=== PATIENT | male | born 1955 | race Two or more races ===

== ENCOUNTER 2020-07-29 13:46 | Inpatient (IN) | payer MEDICAID ==
[~2020-07-29] VITALS: Ht 165.1 cm; Wt 72.6 kg
[2020-07-29 14:07] VITALS: BP 145/82
--- NOTE | 2020-07-29 14:07 | NUR ---
ED Nurse Note: Patient from home and brought in by his family member due to low pulse oximeter reading started yesterday. Patient came in with 79% on room air. Patient alos reports bodyaches x2 days. AAO x4, ambulatory with SOB at rest. Placed on oxygen at 6LPM. Noted tachypnea at 30RR. Dr Foley notified.
[2020-07-29] MEDS ORDERED: ZITHROMAX250 MG ORAL (14:12)
[2020-07-29] MEDS ORDERED: Azithromycin 500 MG in NS 275 ML IVPB ONE (14:15)
[2020-07-29] MEDS ORDERED: dexAMETHasone 10mg/ml Inj IV ONE (14:15)
--- NOTE | 2020-07-29 14:33 | NUR ---
ED Nurse Note: Collected blood and rapid covid19 swab then sent.
--- NOTE | 2020-07-29 14:37 | Emergency Room Report ---
History of Present Illness General Chief Complaint: Dyspnea/Respdistress Source: Family Member Present Illness HPI Disclaimer: Please note that this report is being documented using Track[employer] technology. This can lead to erroneous entry secondary to incorrect interpretation by the dictating instrument. HPI: 64-year-old male no reported past medical history presents with shortness of breath and hypoxemia. Patient apparently cough and shortness of breath for the past 10 days. He has positive sick contacts at home and his son with COVID- 19. He states he has had a negative COVID-19 test however his room air oxygen level was in the 70s today. Also complains of some generalized weakness. No nausea vomiting diarrhea. Allergies: Coded Allergies: No Known Allergies (Unverified , 07/29/20) COVID-19 Screening Contact w/high risk pt: No Experienced COVID-19 symptoms?: Yes COVID-19 Testing performed MEDICAL SUPPORT ASSISTANT: Yes COVID-19 Screening: Negative COVID-19 COVID-19 Testing Source: CHIEF ORTHOPTIST Patient History Reviewed Nursing Documentation: PMH: Agreed; PSxH: Agreed Nursing Documentation-PMH Past Medical History: No Stated History Review of Systems All Other Systems: negative except mentioned in HPI Physical Exam Vital Signs Date Time Temp Pulse Resp B/P (MAP) Pulse Ox O2 Delivery O2 Flow Rate FiO2 07/29/20 13:57 97.9 72 34 148/80 (102) 79 Room Air Sp02 EP Interpretation: reviewed, abnormal General Appearance: well appearing, mild distress Head: normocephalic, atraumatic Eyes: bilateral eye PERRL, bilateral eye EOMI ENT: hearing grossly normal, moist mucus membranes Neck: full range of motion, supple Respiratory: lungs clear, no rhonchi, no wheezing, respiratory distress - Patient tachypneic Cardiovascular #1: normal peripheral pulses, regular rate, rhythm, no murmur Gastrointestinal: non tender, soft, non-distended, no guarding Neurologic: alert, oriented x3, no focal defects Skin: normal color, warm/dry Procedures Critical Care Time Critical Care Time Critical care is made on this patient due to presentation of COVID-19 with hypoxemia requiring my acute intervention. Critical care time is 35 minutes and excludes procedures. Medical Decision Making Diagnostic Impression: Primary Impression: Bilateral pneumonia Additional Impression: Acute respiratory failure with hypoxia ER Course MDM: Differential diagnosis included but not limited to pneumonia, COVID-19, CHF to name a few Clinical course-patient started on oxygen via nasal cannula approximately 6 L. Septic work-up initiated, IV Decadron and IV antibiotics given. Patient reports a negative COVID-19 test however he does have sick contacts with COVID-19 and symptoms consistent with COVID-19. However testing in the ER was negative for COVID-19 given the patient's exam and presentation and history were consistent with Covidpatient required oxygen supplementation and will be admitted to the telemetry floor under Dr. Guzman. Labs- Laboratory Tests Test 07/29/20 14:30 07/29/20 15:00 07/29/20 17:25 White Blood Count 21.9 K/UL (4.8-10.8) H Red Blood Count 4.97 M/UL (4.70-6.10) Hemoglobin 16.5 G/DL (14.2-18.0) Hematocrit 45.9 % (42.0-52.0) Mean Corpuscular Volume 92 FL (80-99) Mean Corpuscular Hemoglobin 33.2 PG (27.0-31.0) H Mean Corpuscular Hemoglobin Concent 36.0 G/DL (32.0-36.0) Red Cell Distribution Width 11.5 % (11.6-14.8) L Platelet Count 281 K/UL (150-450) Mean Platelet Volume 5.7 FL (6.5-10.1) L Neutrophils (%) (Auto) % (45.0-75.0) Lymphocytes (%) (Auto) % (20.0-45.0) Monocytes (%) (Auto) % (1.0-10.0) Eosinophils (%) (Auto) % (0.0-3.0) Basophils (%) (Auto) % (0.0-2.0) Neutrophils % (Manual) 94 % (45-75) H Lymphocytes % (Manual) 1 % (20-45) L Monocytes % (Manual) 0 % (1-10) L Eosinophils % (Manual) 0 % (0-3) Basophils % (Manual) 0 % (0-2) Metamyelocytes % 0 % (0-0) Myelocytes % 0 % (0-0) Promyelocytes % 0 % (0-0) Blast Cells % 0 % (0-0) Plasma Cells % (manual) 0 % (0-0) Band Neutrophils 5 % (0-8) Platelet Estimate Adequate Platelet Morphology Normal Polychromasia 1+ Anisocytosis 1+ Macrocytosis 2+ Prothrombin Time 11.2 SEC (9.30-11.50) Prothrombin Time INR 1.0 (0.9-1.1) Activated Partial Thromboplast Time 26 SEC (23-33) D-Dimer 7.09 mg/L FEU (0.00-0.49) H Sodium Level 133 MMOL/L (136-145) L Potassium Level 3.8 MMOL/L (3.5-5.1) Chloride Level 100 MMOL/L (98-107) Carbon Dioxide Level 25 MMOL/L (21-32) Anion Gap 8 mmol/L (5-15) Blood Urea Nitrogen 22 mg/dL (7-18) H Creatinine 1.1 MG/DL (0.55-1.30) Estimated Glomerular Filtration Rate > 60 mL/min (>60) Glucose Level 176 MG/DL (74-106) H Lactic Acid Level 2.60 mmol/L (0.4-2.0) H 2.60 mmol/L (0.66-2.22) H Calcium Level 8.6 MG/DL (8.5-10.1) Ferritin 894 NG/ML (8-388) H Total Bilirubin 0.8 MG/DL (0.2-1.0) Aspartate Amino Transferase (AST) 71 U/L (15-37) H Alanine Aminotransferase (ALT) 62 U/L (12-78) Alkaline Phosphatase 114 U/L (46-116) Lactate Dehydrogenase 665 U/L (81-234) H Total Creatine Kinase 95 U/L (26-308) Creatine Kinase MB 0.6 NG/ML (0.0-3.6) Creatine Kinase MB Relative Index 0.6 Troponin I 0.000 ng/mL (0.000-0.056) C-Reactive Protein, Quantitative Pending Pro-B-Type Natriuretic Peptide 389 pg/mL (0-125) H Total Protein 7.3 G/DL (6.4-8.2) Albumin 2.6 G/DL (3.4-5.0) L Globulin 4.7 g/dL Albumin/Globulin Ratio 0.6 (1.0-2.7) L Lipase 156 U/L (73-393) Arterial Blood pH 7.494 (7.350-7.450) Arterial Blood Partial Pressure CO2 29.5 mmHg (35.0-45.0) L Arterial Blood Partial Pressure O2 53.6 mmHg (75.0-100.0) L Arterial Blood HCO3 22.2 mmol/L (22.0-26.0) Arterial Blood Oxygen Saturation 90.3 % (95-100) L Arterial Blood Base Excess 0.2 (-2-2) Mehdi Test Positive Urine Color Yellow Urine Appearance Clear Urine pH 6 (4.5-8.0) Urine Specific [place] 1.015 (1.005-1.035) Urine Protein 1+ (NEGATIVE) H Urine Glucose (UA) Negative (NEGATIVE) Urine Ketones Negative (NEGATIVE) Urine Blood Negative (NEGATIVE) Urine Nitrite Negative (NEGATIVE) Urine Bilirubin Negative (NEGATIVE) Urine Urobilinogen 1 MG/DL (0.0-1.0) H Urine Leukocyte Esterase Negative (NEGATIVE) Urine RBC 0-2 /HPF (0 - 0) H Urine WBC 0-2 /HPF (0 - 0) Urine Squamous Epithelial Cells None /LPF (NONE/OCC) Urine Bacteria None /HPF (NONE) Microbiology Date/Time Source Procedure Growth Status 07/29/20 14:30 Nasopharynx SARS-CoV-2 RdRp Gene Assay - Final Complete On reevaluation: Patient required oxygen via facemask. Plan-admission to the telemetry floor EKG Diagnostic Results Rate: normal Rhythm: NSR ST Segments: no acute changes Chest X-Ray Diagnostic Results Chest X-Ray Diagnostic Results : Chest X-Ray Ordered: Yes # of Views/Limited/Complete: 1 View Indication: Shortness of Breath EP Interpretation: Yes Interpretation: other - Bilateral multifocal infiltrates noted Electronically Signed by: Axel Foley MD Last Vital Signs Date Time Temp Pulse Resp B/P (MAP) Pulse Ox O2 Delivery O2 Flow Rate FiO2 07/29/20 13:57 97.9 72 34 148/80 (102) 79 Room Air Disposition: ADMITTED INPATIENT Condition: Serious Referrals: NOT CHOSEN YONIS/,REFERRING (PCP) Axel Foley M.D. Jul 29, 2020 14:37
[2020-07-29 15:12] LABS: HEMATOCRIT 45.9 % (42.0-52.0); HEMOGLOBIN 16.5 G/DL (14.2-18.0); MEAN CORPUSCULAR VOLUME 92 FL (80-99); PLATELET COUNT 281 K/UL (150-450); RED BLOOD COUNT 4.97 M/UL (4.70-6.10); RED CELL DISTRIBUTION WIDTH 11.5 % (11.6-14.8); WHITE BLOOD COUNT 21.9 K/UL (4.8-10.8)
[2020-07-29 15:24] LABS: ANION GAP 8 mmol/L (5-15); BLOOD UREA NITROGEN 22 mg/dL (7-18); CALCIUM 8.6 MG/DL (8.5-10.1); CARBON DIOXIDE 25 MMOL/L (21-32); CHLORIDE 100 MMOL/L (98-107); CREATININE 1.1 MG/DL (0.55-1.30); POTASSIUM 3.8 MMOL/L (3.5-5.1); SODIUM 133 MMOL/L (136-145)
--- NOTE | 2020-07-29 15:29 | Diagnostic Imaging Report ---
Indication: Shortness of breath Technique: One view of the chest Comparison: none Findings: There are bilateral infiltrates in a peribronchial vascular distribution. The heart size is normal. There is a pleural spaces are clear. Impression: Bilateral infiltrates, likely multifocal pneumonia, likely viral
[2020-07-29] MEDS ORDERED: cefTRIAXone 1 GM in NS 55 ML IVPB ONE (15:30)
[2020-07-29 15:39] LABS: ALANINE AMINOTRANSFERASE 62 U/L (12-78); ALBUMIN 2.6 G/DL (3.4-5.0); ALBUMIN/GLOBULIN RATIO 0.6 (1.0-2.7); ALKALINE PHOSPHATASE 114 U/L (46-116); ASPARTATE AMINO TRANSFERASE 71 U/L (15-37); BILIRUBIN,TOTAL 0.8 MG/DL (0.2-1.0); CKMB 0.6 NG/ML (0.0-3.6); CREATINE KINASE 95 U/L (26-308); FERRITIN 894 NG/ML (8-388); LACTATE DEHYDROGENASE 665 U/L (81-234)
[2020-07-29 16:00] VITALS: BP 118/63
--- NOTE | 2020-07-29 16:43 | NUR ---
ED Nurse Note: Patient desating down to 87% on 6LPM. Placed patient on 15LPm via NR. RANJIT aware.
--- NOTE | 2020-07-29 17:02 | Consultation ---
Consult Note Consult Note DATE OF CONSULTATION: 07/29/2020 CONSULTING PHYSICIAN: Milton Antonio MD. ATTENDING PHYSICIAN: Dr. Guzman REASON FOR CONSULTATION: Pneumonia, hypoxia HISTORY OF PRESENT ILLNESS: This is a 64-year-old male with no pertinent past medical history who presented for evaluation of shortness of breath and hypoxemia. Patient reported cough and shortness of breath x10 days. He did report positive sick contacts at home who tested positive for COVID-19. His oxygen saturation was in the 70s today on room air. He was given supplemental oxygen and is now saturating at 92% on 6 L nasal cannula. He denies nausea, vomiting, diarrhea. Initial laboratories studies notable for leukocytosis with neutrophil predomin ance, hyponatremia, elevated BUN, hyperglycemia, elevated lactic acid, elevated ferritin and AST. Chest x-ray reveals bilateral infiltrates. Patient received IV Decadron and IV antibiotics and awaiting admission due to hypoxia and flulike symptoms. PAST MEDICAL HISTORY: None reported MEDICATIONS: None per patient ALLERGIES: No known allergies FAMILY HISTORY: Unknown PERSONAL/SOCIAL HISTORY: Lives at home with family REVIEW OF SYSTEMS: Negative except mentioned in HPI PHYSICAL EXAMINATION: VITAL SIGNS: Blood pressure 145/82, heart rate 72, respiratory rate 34, weight 72 kg, height 165 cm. HEENT: Head exam reveals that the head is normocephalic, atraumatic without deformity or unusual swelling. Pupils are PERRLA. CHEST AND LUNGS: Patient appears tachypneic, reveals clear, normal, symmetrical breath sounds with no adventitious sounds. CARDIOVASCULAR: Reveals normal S1, S2 without murmurs, rubs, or clicks. ABDOMEN: Soft with no tenderness or organomegaly. RECTAL: Deferred. MUSCULOSKELETAL: There is no tenderness to palpation. Range of motion is normal. NEUROLOGICAL: Alert and oriented x3 , nonfocal LABORATORY DATA: Laboratory testing shows WBC 21.9, neutrophils 94. Chemistries show sodium 133, BUN 22, glucose 176, lactic acid 2.6, ferritin 894, AST 71, LDH 665, BNP 389 ABG shows pH 7.494, PCO2 29.5, PO2 53.6 D-dimer 7.09 Assessment/Plan 1. Respiratory alkalosis, likely secondary to tachypnea - monitor ABG - reassurance and supportive care 2. Hyponatremia - per primary MD 3. Elvated BUN - per primary MD 4. Hyperglycemia - BG control 5. Pneumonia - We will continue broad-spectrum Abx - We will continue dexamethasone 6. Respiratory failure - Continue monitoring SaO2 and provide supplemental oxygen 7. COVID-19 negative 8. Elevated inflammatory markers; ferritin, D-Dimer - likely secondary to #5 - may benefit from Lovenox The care of this patient was discussed with my supervising physician Time spent for this encounter was approximately 31 minutes Slava Hector Jul 29, 2020 17:02
[2020-07-29 17:41] LABS: APPEARANCE,URINE CLEAR; BILIRUBIN, URINE NEGATIVE (NEGATIVE); COLOR,URINE YELLOW; GLUCOSE, URINE (UA) NEGATIVE (NEGATIVE); KETONES,URINE NEGATIVE (NEGATIVE); LEUKOCYTE ESTERASE ,URINE NEGATIVE (NEGATIVE); NITRITE,URINE NEGATIVE (NEGATIVE); PH,URINE 6 (4.5-8.0); PROTEIN,URINE 1+ (NEGATIVE); UROBILINOGEN,URINE 1 MG/DL (0.0-1.0)
[2020-07-29 18:00] VITALS: BP 145/81
--- NOTE | 2020-07-29 19:14 | NUR ---
HAND-OFF: Report given to Mita GONZALEZ.
[2020-07-29 19:37] VITALS: BP 116/81
--- NOTE | 2020-07-29 19:38 | NUR ---
ED Nurse Note: Recived report from Marilee Lopez RN. Pt is resting comfortably, axox4, SPO2 is 93% on 15L NRB. He is tachypneic. Vitals are stable as documented.
--- NOTE | 2020-07-29 20:15 | NUR ---
TRANSFER TO FLOOR: Patient transferred to as ordered, per ER MD. Report given to Roger RN. Belongings sent with pt. Counted money with reciving RN in sight of pt. Transfered with RN and tele box.
--- NOTE | 2020-07-29 20:22 | NUR ---
ED Nurse Note: Report given to Roger RN
--- NOTE | 2020-07-29 20:55 | NUR ---
NURSE NOTES: NURSE NOTES: Received report from Mita GONZALEZ at ER.The patient is alert and oriented x4 and is on a non rebreather @ 15 liters of oxygen with spo2 @ 97%. He is cooperative with his care and can ambulate to the bathroom with a steady gait.The skin is intact with capillary refills <3 seconds. The extremities has no evidence of Cyanosis, no gangrene noted. will followup with Dr. Guzman on admission order as indicated.
--- NOTE | 2020-07-29 21:02 | NUR ---
NURSE NOTES: Received admission orders from Dr. olivo. All orders executed as indicated.The patient is calm and relaxed. The bed in low level, call light within easy reach and siderails up x2. Will continue to monitor as indicated
[2020-07-29] MEDS ORDERED: Albuterol 90mcg Inhaler 8gm INH PRN (22:45)
[2020-07-30] VITALS: BP 131/72
[2020-07-30] MEDS ORDERED: Morphine Sulfate 2mg/ml Inj(IV/IM USE ONLY) IVP PRN (02:15)
[2020-07-30 04:00] VITALS: BP 133/70
[2020-07-30] MEDS ORDERED: Morphine Sulfate 4mg/ml Inj (IV USE ONLY) IVP PRN (04:45)
--- NOTE | 2020-07-30 07:10 | NUR ---
NURSE HAND-OFF REPORT: Important Events on Shift:Alert and oriented x4, continous on Non-rebrether Patient Status: Diet: Pending Orders: Pending Results/Labs: Pending MD notification: Latest Vital Signs: Temperature 98.6 , Pulse 62 , B/P 133 /70 , Respiratory Rate 19 , O2 SAT 94 , Non-Rebreather, O2 Flow Rate 15.0 . Vital Sign Comment: EKG Rhythm: Sinus Rhythm Rhythm change?: N MD Notified?: - MD Response: Latest Orozco Fall Score: 35 Fall Risk: Medium Risk Safety Measures: Call light Within Reach, Bed Alarm Zone 1, Side Rails Side Rails x1, Bed position Low and Locked. Fall Precautions: Yellow Socks Yellow Gown Door Sign Patient Fall Education Report given to .
--- NOTE | 2020-07-30 07:10 | NUR ---
NURSE NOTES: Dr. Bravo was called and a voice message was left informing her on patient WBC at 21.9 H.
--- NOTE | 2020-07-30 07:50 | NUR ---
NURSE NOTES: Report received from Roger RN. Patient is observed in bed, awake, alert, oriented, and able to make needs known. Respiratory is even, 15L non-rebreather, patient denies SOB and/or pain at this time. IV site is asymptomatic, patent, and intact. Bed is in lowest position with side rails up x2 and brakes are engaged. Encouraged patient to use call light when in need of assistance, pt verbalized understanding. Urinal and personal belongings are within reach. Will do frequent monitoring.
[2020-07-30 08:00] VITALS: BP 127/73
[2020-07-30 09:02] LABS: ANION GAP 10 mmol/L (5-15); BLOOD UREA NITROGEN 26 mg/dL (7-18); CALCIUM 8.7 MG/DL (8.5-10.1); CARBON DIOXIDE 23 MMOL/L (21-32); CHLORIDE 102 MMOL/L (98-107); POTASSIUM 4.1 MMOL/L (3.5-5.1); SODIUM 135 MMOL/L (136-145)
[2020-07-30 09:03] LABS: HEMATOCRIT 44.2 % (42.0-52.0); HEMOGLOBIN 15.7 G/DL (14.2-18.0); MEAN CORPUSCULAR VOLUME 93 FL (80-99); PLATELET COUNT 237 K/UL (150-450); RED BLOOD COUNT 4.75 M/UL (4.70-6.10); RED CELL DISTRIBUTION WIDTH 12.3 % (11.6-14.8); WHITE BLOOD COUNT 17.6 K/UL (4.8-10.8)
[2020-07-30] MEDS: Heparin 5000 units/ml inj SUBQ SCH ×2 (09:05→21:12)
--- NOTE | 2020-07-30 09:33 | NUR ---
CASE MANAGEMENT:REVIEW 64 YR OLD FEMALE PRESENTED TO ER BY FAMILY CC: BODY ACHES X2 DAYS. SOB SI: BILATERAL PNA. ACUTE RESP FAILURE W/HYPOXIA 97.8 72 34 148/80 79% ON RA WBC+21.9 IS: PLACED ON 6L/NC THEN 15L NRB IV AZITHROMYCIN IV DECADRON IV ROCEPHIN CXR BLOOD CX : TO TELEMETRY : FROM HOME
--- NOTE | 2020-07-30 09:51 | Pulmonology Progress Note ---
Subjective Interval Events: none major overnight per nursing Constitutional: Reports: no symptoms HEENT: Repors: no symptoms Respiratory: Reports: dry cough, shortness of breath Cardiovascular: Reports: no symptoms Gastrointestinal/Abdominal: Reports: no symptoms Allergies: Coded Allergies: No Known Allergies (Unverified , 07/29/20) Objective Last 24 Hour Vital Signs Date Time Temp Pulse Resp B/P (MAP) Pulse Ox O2 Delivery O2 Flow Rate FiO2 07/30/20 04:00 98.6 69 19 133/70 (91) 94 07/30/20 04:00 62 07/30/20 00:00 98.1 67 24 131/72 (91) 92 07/30/20 00:00 66 07/29/20 21:19 70 07/29/20 21:00 Non-Rebreather 15.0 07/29/20 20:55 Non-Rebreather 15.0 07/29/20 20:38 98.6 65 25 133/86 93 Non-Rebreather 15.0 07/29/20 19:37 98.6 63 35 116/81 93 Non-Rebreather 15.0 07/29/20 18:00 98.8 92 18 145/81 94 Non-Rebreather 15.0 07/29/20 16:00 97.9 83 17 118/63 97 Non-Rebreather 15.0 07/29/20 14:07 72 34 Nasal Cannula 6.0 07/29/20 14:07 97.9 83 30 145/82 90 Nasal Cannula 6.0 07/29/20 13:57 97.9 72 34 148/80 (102) 79 Room Air Intake and Output 07/29/20 07/30/20 19:00 07:00 Intake Total 330 ml 450 ml Output Total 300 ml Balance 30 ml 450 ml Intake Oral 450 ml IV Total 330 ml Output Urine Total 300 ml Objective 07/30 saturating at 94% on 15L NRBM General Appearance: no acute distress HEENT: normocephalic, atraumatic Respiratory: lungs clear Cardiovascular: normal rate, regular rhythm Abdomen: soft, non tender Microbiology Date/Time Source Procedure Growth Status 07/29/20 19:25 Nasal Aspirate - Final Complete 07/29/20 19:25 Nasal Aspirate - Final Complete 07/29/20 14:30 Nasopharynx SARS-CoV-2 RdRp Gene Assay - Final Complete Laboratory Tests 07/29/20 14:30: White Blood Count 21.9H, Red Blood Count 4.97, Hemoglobin 16.5, Hematocrit 45.9, Mean Corpuscular Volume 92, Mean Corpuscular Hemoglobin 33.2H, Mean Corpuscular Hemoglobin Concent 36.0, Red Cell Distribution Width 11.5L, Platelet Count 281, Mean Platelet Volume 5.7L, Neutrophils (%) (Auto) , Lymphocytes (%) (Auto) , Monocytes (%) (Auto) , Eosinophils (%) (Auto) , Basophils (%) (Auto) , Neutrophils % (Manual) 94H, Lymphocytes % (Manual) 1L, Monocytes % (Manual) 0L, Eosinophils % (Manual) 0, Basophils % (Manual) 0, Metamyelocytes % 0, Myelocytes % 0, Promyelocytes % 0, Blast Cells % 0, Plasma Cells % (manual) 0, Band Ne utrophils 5, Platelet Estimate Adequate, Platelet Morphology Normal, Polychromasia 1+, Anisocytosis 1+, Macrocytosis 2+, Prothrombin Time 11.2, Prothromb Time International Ratio 1.0, Activated Partial Thromboplast Time 26, D-Dimer 7.09H, Sodium Level 133L, Potassium Level 3.8, Chloride Level 100, Carbon Dioxide Level 25, Anion Gap 8, Blood Urea Nitrogen 22H, Creatinine 1.1, Estimat Glomerular Filtration Rate > 60, Glucose Level 176H, Lactic Acid Level 2.60H, Calcium Level 8.6, Ferritin 894H, Total Bilirubin 0.8, Aspartate Amino Transf (AST/SGOT) 71H, Alanine Aminotransferase (ALT/SGPT) 62, Alkaline Phosphatase 114, Lactate Dehydrogenase 665H, Total Creatine Kinase 95, Creatine Kinase MB 0.6, Creatine Kinase MB Relative Index 0.6, Troponin I 0.000, C- Reactive Protein, Quantitative [Pending], Pro-B-Type Natriuretic Peptide 389H, Total Protein 7.3, Albumin 2.6L, Globulin 4.7, Albumin/Globulin Ratio 0.6L, Lipase 156 07/29/20 15:00: Arterial Blood pH 7.494H, Arterial Blood Partial Pressure CO2 29.5L, Arterial Blood Partial Pressure O2 53.6L, Arterial Blood HCO3 22.2, Arterial Blood Oxygen Saturation 90.3L, Arterial Blood Base Excess 0.2, Mehdi Test Positive 07/29/20 17:25: Lactic Acid Level 2.60H, Urine Color Yellow, Urine Appearance Clear, Urine pH 6, Urine Specific [place] 1.015, Urine Protein 1+H, Urine Glucose (UA) Negative, Urine Ketones Negative, Urine Blood Negative, Urine Nitrite Negative, Urine Bilirubin Negative, Urine Urobilinogen 1H, Urine Leukocyte Esterase Negative, Urine RBC 0-2H, Urine WBC 0-2, Urine Squamous Epithelial Cells None, Urine Bacteria None 07/30/20 05:00: White Blood Count 17.6H, Red Blood Count 4.75, Hemoglobin 15.7, Hematocrit 44.2, Mean Corpuscular Volume 93, Mean Corpuscular Hemoglobin 33.1H, Mean Corpuscular Hemoglobin Concent 35.6, Red Cell Distribution Width 12.3, Platelet Count 237, Mean Platelet Volume 5.8L, Neutrophils (%) (Auto) , Lymphocytes (%) (Auto) , Monocytes (%) (Auto) , Eosinophils (%) (Auto) , Basophils (%) (Auto) , Neutrophils % (Manual) [Pending], Lymphocytes % (Manual) [Pending], Platelet Estimate [Pending], Platelet Morphology [Pending], Sodium Level 135L, Potassium Level 4.1, Chloride Level 102, Carbon Dioxide Level 23, Anion Gap 10, Blood Urea Nitrogen 26H, Creatinine 1.0, Estimat Glomerular Filtration Rate > 60, Glucose Level 132H, Calcium Level 8.7 Current Medications Medications (Trade) Dose Ordered Sig/Fabiano Route PRN Reason Start Time Stop Time Status Last Admin Dose Admin Albuterol Sulfate (Proventil MDI) 2 puff Q4H PRN INH Shortness of Breath 07/29/20 22:45 10/27/20 22:44 Azithromycin 500 mg/Dextrose 275 ml @ 275 mls/hr Q24HRS IV 07/30/20 11:00 08/05/20 11:59 Ceftriaxone Sodium 1 gm/ Dextrose 55 ml @ 110 mls/hr Q24H IVPB 07/30/20 10:00 08/06/20 09:59 Cetylpyridinium Chloride (Cepacol) 1 lozg PRN PRN [place] For Cough 07/30/20 08:30 10/28/20 08:29 07/30/20 08:58 Dexamethasone Sodium Phosphate (Decadron 10mg/ ml Inj) 6 mg DAILY IV 07/31/20 10:00 08/09/20 09:59 Heparin Sodium (Porcine) (Heparin 5000 units/ml) 5,000 units EVERY 12 HOURS SUBQ 07/30/20 09:00 09/13/20 08:59 07/30/20 09:05 Morphine Sulfate (Morphine Sulfate) 4 mg Q4H PRN IVP Severe Pain (Pain Scale 7-10) 07/30/20 04:45 08/06/20 04:44 Assessment/Plan Assessment/Plan 1. Respiratory alkalosis, likely secondary to tachypnea - monitor ABG - reassurance and supportive care 2. Hyponatremia - per primary MD 3. Elvated BUN - per primary MD 4. Hyperglycemia - BG control 5. Pneumonia with respiratory failure - We will continue broad-spectrum Abx - We will continue dexamethasone - Continue monitoring SaO2 - continue 15L NRBM at this point 6. COVID-19 negative 7. Elevated inflammatory markers; ferritin, D-Dimer - likely secondary to #5 - on heparin per primary MD The care of this patient was discussed with my supervising physician Time spent for this encounter was approximately 31 minutes Slava Hector Jul 30, 2020 09:51
--- NOTE | 2020-07-30 10:21 | NUR ---
RD ASSESSMENT & RECOMMENDATIONS SEE CARE ACTIVITY FOR COMPLETE ASSESSMENT DAILY ESTIMATED NEEDS: Needs based on Pulmonary 64.5kg abw 25-30 kcals/kg 1983-9536 total kcals 1-1.5 g protein/kg 65-97 g total protein 25-30 mL/kg 1908-1504 total fluid mLs NUTRITION DIAGNOSIS: Altered nutrition related lab values related to clinical status as evidenced by elev LD(665), elev WBC(trending down 17.6), elev BG(132-176) CURRENT DIET:Regular PO DIET RECOMMENDATIONS: Regular diet (texture as tolerated) ADDITIONAL RECOMMENDATIONS: 1) Obtain a standing scale wt as able 2) Monitor BG, need for NISS 3) Monitor PO intake and resp status (currently on NRB) Need for supplements and/or snacks
[2020-07-30] MEDS: cefTRIAXone 1 GM in D5W 55 ML IVPB SCH (10:23)
--- NOTE | 2020-07-30 10:45 | History and Physical Report ---
DATE OF ADMISSION: 07/29/2020 DATE AND TIME SEEN: 07/30/2020 at 10 a.m. CONSULTANTS: 1. Santosh Cheek MD. 2. Milton Antonio MD. CHIEF COMPLAINT: Shortness of breath, pneumonia, hypoxia, COVID exposure. BRIEF HISTORY: This is a 64-year-old male, who presents with increased shortness of breath for about 10 days, admits to positive COVID exposure with family, came to [place] diagnosed as above, was diagnosed with also pneumonia and hypoxia, and admitted to telemetry. Currently, on pulmonary treatment, sleeping in bed, not talking much. REVIEW OF SYSTEMS: Unavailable. PAST MEDICAL HISTORY: Includes nothing. PAST SURGICAL HISTORY: None. ALLERGIES: Denies. MEDICATIONS: Include dexamethasone, azithromycin, ceftriaxone, morphine, albuterol. SOCIAL HISTORY: Unable to obtain, as he is very lethargic and sleeping at this time. PHYSICAL EXAMINATION: GENERAL: Sleeping in bed, not really responding to questions. VITAL SIGNS: Temperature 98, pulse 69, respirations 19, blood pressure 132/70. CARDIOVASCULAR: No murmur. LUNGS: Poor air exchange. ABDOMEN: Bowel sounds distant. EXTREMITIES: No cyanosis, clubbing, or edema. NEUROLOGIC: The patient moves all extremities, slightly weak. LABORATORY AND DIAGNOSTIC DATA: Labs at this time show white count 17, otherwise CBC is normal. BMP shows sodium 135, BUN 26, glucose 135. Lactic acid 2.6. Albumin 2.6. BNP is 389. INR is 1.0. D-dimer 7.09. Urinalysis, 1+ protein, otherwise normal. ASSESSMENT: 1. Shortness of breath. 2. Bilateral pneumonia. 3. Hypoxia. 4. Leukocytosis. 5. COVID exposure. 6. Malnutrition. PLAN: 1. O2 and pulmonary treatment. 2. Antibiotics per Infectious Disease. 3. Blood pressure and pain control. 4. Dietary followup. 5. ID and Pulmonary followup. 6. CBC and BMP in the morning. Robert Guzman D.O. DR: LEON JOB#: [id number] CC:
[2020-07-30] MEDS: Azithromycin 500 MG in D5W 275 ML IV SCH (11:31)
[2020-07-30 12:00] VITALS: BP 133/85
--- NOTE | 2020-07-30 12:00 | NUR ---
NURSE NOTES: Patient is observed in bed, awake, alert, oriented, and able to make needs known. Respiratory even and unlabored. Tolerating 15L NRB. VSS.
--- NOTE | 2020-07-30 12:54 | Consultation ---
History of Present Illness General Date patient seen: Jul 30, 2020 Reason for Hospitalization: Dyspnea/Respdistress Present Illness HPI 64-year-old male Covid negative admitted [facility] for leukocytosis lactic acidosis complaint abdominal discomfort surgery called to eval and assist with care patient seen patient value chart reviewed 3 out of 10 cramping discomfort no nausea vomiting. Family numbers at home with Covid prior. Allergies: Coded Allergies: No Known Allergies (Unverified , 07/29/20) COVID-19 Screening Contact w/high risk pt: No Experienced COVID-19 symptoms?: Yes Coronavirus symptoms experienc: Shortness of Breath Medication History Scheduled Azithromycin* (Zithromax*), 250 MG ORAL DAILY, (Reported) Patient History History Provided By: Patient, Medical Record, PMD Healthcare decision maker Resuscitation status Advanced Directive on File Past Medical/Surgical History Past Medical/Surgical History: (1) Hypoxia (2) Bilateral pneumonia (3) Acute respiratory failure with hypoxia Review of Systems Review of Symptoms General ROS: no weight loss or fever Psychological ROS: no depression or mood changes, no memory loss Ophthalmic ROS: no visual changes or eye irritation ENT ROS: no nasal congestion, hearing loss, dizziness Allergy and Immunology ROS: no allergic symptoms or urticaria Hematological and Lymphatic ROS: no swollen glands, unusual bleeding or bruising Endocrine ROS: no polyuria, polydipsia, weight changes, temperature intolerance Respiratory ROS: no cough, shortness of breath, or wheezing Cardiovascular ROS: no chest pain or dyspnea on exertion Gastrointestinal ROS: denies abdominal pain, bright red blood in stool. Musculoskeletal ROS: no myalgias or arthralgias Neurological ROS: no TIA or stroke symptoms Dermatological ROS: no new or changing skin lesions, rashes or pruritis Physical Exam Physical Exam General appearance: alert, cooperative, no distress, appears stated age Head: Normocephalic, without obvious abnormality, atraumatic Eyes: conjunctivae/corneas clear. PERRL, EOM's intact. Fundi benign Throat: Lips, mucosa, and tongue normal. Teeth and gums normal Neck: supple, symmetrical, trachea midline, no adenopathy, thyroid: not enlarged, symmetric, no tenderness/mass/nodules, no carotid bruit and no JVD Lungs: clear to auscultation bilaterally Heart: regular rate and rhythm, S1, S2 normal, no murmur, click, rub or gallop Abdomen: soft, non-tender. Bowel sounds normal. No masses, no organomegaly Extremities: extremities normal, atraumatic, no cyanosis or edema Pulses: 2+ and symmetric Skin: Skin color, texture, turgor normal. No rashes or lesions Neurologic: Grossly normal Last 24 Hour Vital Signs Date Time Temp Pulse Resp B/P (MAP) Pulse Ox O2 Delivery O2 Flow Rate FiO2 07/30/20 12:00 97.5 90 19 133/85 (101) 95 07/30/20 11:35 69 07/30/20 09:00 Non-Rebreather 15.0 07/30/20 08:03 67 07/30/20 08:00 97.6 85 19 127/73 (91) 95 07/30/20 04:00 98.6 69 19 133/70 (91) 94 07/30/20 04:00 62 07/30/20 00:00 98.1 67 24 131/72 (91) 92 07/30/20 00:00 66 07/29/20 21:19 70 07/29/20 21:00 Non-Rebreather 15.0 07/29/20 20:55 Non-Rebreather 15.0 07/29/20 20:38 98.6 65 25 133/86 93 Non-Rebreather 15.0 07/29/20 19:37 98.6 63 35 116/81 93 Non-Rebreather 15.0 07/29/20 18:00 98.8 92 18 145/81 94 Non-Rebreather 15.0 07/29/20 16:00 97.9 83 17 118/63 97 Non-Rebreather 15.0 07/29/20 14:07 72 34 Nasal Cannula 6.0 07/29/20 14:07 97.9 83 30 145/82 90 Nasal Cannula 6.0 07/29/20 13:57 97.9 72 34 148/80 (102) 79 Room Air Intake and Output 07/29/20 07/30/20 19:00 07:00 Intake Total 330 ml 450 ml Output Total 300 ml Balance 30 ml 450 ml Intake Oral 450 ml IV Total 330 ml Output Urine Total 300 ml Laboratory Tests Test 07/29/20 14:30 07/29/20 15:00 07/29/20 17:25 07/30/20 05:00 White Blood Count 21.9 K/UL (4.8-10.8) H 17.6 K/UL (4.8-10.8) H Red Blood Count 4.97 M/UL (4.70-6.10) 4.75 M/UL (4.70-6.10) Hemoglobin 16.5 G/DL (14.2-18.0) 15.7 G/DL (14.2-18.0) Hematocrit 45.9 % (42.0-52.0) 44.2 % (42.0-52.0) Mean Corpuscular Volume 92 FL (80-99) 93 FL (80-99) Mean Corpuscular Hemoglobin 33.2 PG (27.0-31.0) H 33.1 PG (27.0-31.0) H Mean Corpuscular Hemoglobin Concent 36.0 G/DL (32.0-36.0) 35.6 G/DL (32.0-36.0) Red Cell Distribution Width 11.5 % (11.6-14.8) L 12.3 % (11.6-14.8) Platelet Count 281 K/UL (150-450) 237 K/UL (150-450) Mean Platelet Volume 5.7 FL (6.5-10.1) L 5.8 FL (6.5-10.1) L Neutrophils (%) (Auto) % (45.0-75.0) % (45.0-75.0) Lymphocytes (%) (Auto) % (20.0-45.0) % (20.0-45.0) Monocytes (%) (Auto) % (1.0-10.0) % (1.0-10.0) Eosinophils (%) (Auto) % (0.0-3.0) % (0.0-3.0) Basophils (%) (Auto) % (0.0-2.0) % (0.0-2.0) Neutrophils % (Manual) 94 % (45-75) H 93 % (45-75) H Lymphocytes % (Manual) 1 % (20-45) L 4 % (20-45) L Monocytes % (Manual) 0 % (1-10) L 3 % (1-10) Eosinophils % (Manual) 0 % (0-3) 0 % (0-3) Basophils % (Manual) 0 % (0-2) 0 % (0-2) Metamyelocytes % 0 % (0-0) Myelocytes % 0 % (0-0) Promyelocytes % 0 % (0-0) Blast Cells % 0 % (0-0) Plasma Cells % (manual) 0 % (0-0) Band Neutrophils 5 % (0-8) 0 % (0-8) Platelet Estimate Adequate Adequate Platelet Morphology Normal Normal Polychromasia 1+ 1+ Anisocytosis 1+ Macrocytosis 2+ Prothrombin Time 11.2 SEC (9.30-11.50) Prothromb Time International Ratio 1.0 (0.9-1.1) Activated Partial Thromboplast Time 26 SEC (23-33) D-Dimer 7.09 mg/L FEU (0.00-0.49) H Sodium Level 133 MMOL/L (136-145) L 135 MMOL/L (136-145) L Potassium Level 3.8 MMOL/L (3.5-5.1) 4.1 MMOL/L (3.5-5.1) Chloride Level 100 MMOL/L (98-107) 102 MMOL/L (98-107) Carbon Dioxide Level 25 MMOL/L (21-32) 23 MMOL/L (21-32) Anion Gap 8 mmol/L (5-15) 10 mmol/L (5-15) Blood Urea Nitrogen 22 mg/dL (7-18) H 26 mg/dL (7-18) H Creatinine 1.1 MG/DL (0.55-1.30) 1.0 MG/DL (0.55-1.30) Estimat Glomerular Filtration Rate > 60 mL/min (>60) > 60 mL/min (>60) Glucose Level 176 MG/DL (74-106) H 132 MG/DL (74-106) H Lactic Acid Level 2.60 mmol/L (0.4-2.0) H 2.60 mmol/L (0.66-2.22) H Calcium Level 8.6 MG/DL (8.5-10.1) 8.7 MG/DL (8.5-10.1) Ferritin 894 NG/ML (8-388) H Total Bilirubin 0.8 MG/DL (0.2-1.0) Aspartate Amino Transf (AST/SGOT) 71 U/L (15-37) H Alanine Aminotransferase (ALT/SGPT) 62 U/L (12-78) Alkaline Phosphatase 114 U/L (46-116) Lactate Dehydrogenase 665 U/L (81-234) H Total Creatine Kinase 95 U/L (26-308) Creatine Kinase MB 0.6 NG/ML (0.0-3.6) Creatine Kinase MB Relative Index 0.6 Troponin I 0.000 ng/mL (0.000-0.056) C-Reactive Protein, Quantitative Pending Pro-B-Type Natriuretic Peptide 389 pg/mL (0-125) H Total Protein 7.3 G/DL (6.4-8.2) Albumin 2.6 G/DL (3.4-5.0) L Globulin 4.7 g/dL Albumin/Globulin Ratio 0.6 (1.0-2.7) L Lipase 156 U/L (73-393) Arterial Blood pH 7.494 (7.350-7.450) Arterial Blood Partial Pressure CO2 29.5 mmHg (35.0-45.0) L Arterial Blood Partial Pressure O2 53.6 mmHg (75.0-100.0) L Arterial Blood HCO3 22.2 mmol/L (22.0-26.0) Arterial Blood Oxygen Saturation 90.3 % (95-100) L Arterial Blood Base Excess 0.2 (-2-2) Mehdi Test Positive Urine Color Yellow Urine Appearance Clear Urine pH 6 (4.5-8.0) Urine Specific [place] 1.015 (1.005-1.035) Urine Protein 1+ (NEGATIVE) H Urine Glucose (UA) Negative (NEGATIVE) Urine Ketones Negative (NEGATIVE) Urine Blood Negative (NEGATIVE) Urine Nitrite Negative (NEGATIVE) Urine Bilirubin Negative (NEGATIVE) Urine Urobilinogen 1 MG/DL (0.0-1.0) H Urine Leukocyte Esterase Negative (NEGATIVE) Urine RBC 0-2 /HPF (0 - 0) H Urine WBC 0-2 /HPF (0 - 0) Urine Squamous Epithelial Cells None /LPF (NONE/OCC) Urine Bacteria None /HPF (NONE) Differential Total Cells Counted 100 Microbiology Date/Time Source Procedure Growth Status 07/29/20 19:25 Nasal Aspirate - Final Complete 07/29/20 19:25 Nasal Aspirate - Final Complete 07/29/20 14:30 Nasopharynx SARS-CoV-2 RdRp Gene Assay - Final Complete Height (Feet): 5 Height (Inches): 5.00 Weight (Pounds): 160 Medications Current Medications Medications (Trade) Dose Ordered Sig/Fabiano Route PRN Reason Start Time Stop Time Status Last Admin Dose Admin Albuterol Sulfate (Proventil MDI) 2 puff Q4H PRN INH Shortness of Breath 07/29/20 22:45 10/27/20 22:44 Azithromycin 500 mg/Dextrose 275 ml @ 275 mls/hr Q24HRS IV 07/30/20 11:00 08/05/20 11:59 07/30/20 11:31 Ceftriaxone Sodium 1 gm/ Dextrose 55 ml @ 110 mls/hr Q24H IVPB 07/30/20 10:00 08/06/20 09:59 07/30/20 10:23 Cetylpyridinium Chloride (Cepacol) 1 lozg PRN PRN [place] For Cough 07/30/20 08:30 10/28/20 08:29 07/30/20 08:58 Dexamethasone Sodium Phosphate (Decadron 10mg/ ml Inj) 6 mg DAILY IV 07/31/20 10:00 08/09/20 09:59 Heparin Sodium (Porcine) (Heparin 5000 units/ml) 5,000 units EVERY 12 HOURS SUBQ 07/30/20 09:00 09/13/20 08:59 07/30/20 09:05 Morphine Sulfate (Morphine Sulfate) 4 mg Q4H PRN IVP Severe Pain (Pain Scale 7-10) 07/30/20 04:45 08/06/20 04:44 Assessment/Plan Problem List: (1) Hypoxia ICD Codes: R09.02 - Hypoxemia SNOMED: 034522382 (2) Bilateral pneumonia ICD Codes: J18.9 - Pneumonia, unspecified organism SNOMED: 041606253, 235927669 (3) Acute respiratory failure with hypoxia Assessment & Plan: ards covid negative as per pulm id input appreciated abd pain likely cramping indigestion from ill ness ppi ordered okay for diet monitor intake am labs will follow with exam and recs ICD Codes: J96.01 - Acute respiratory failure with hypoxia SNOMED: 09085306, 452579582 Vern Quevedo Jul 30, 2020 12:54
--- NOTE | 2020-07-30 14:45 | Consultation ---
DATE OF CONSULTATION: 07/30/2020 INFECTIOUS DISEASE CONSULTATION REFERRING PHYSICIAN: Robert Guzman D.O. REASON FOR CONSULTATION: Pneumonia. HISTORY OF PRESENTING ILLNESS: This is a 64-year-old gentleman without any past medical history, who comes in with shortness of breath along with cough. Apparently, he had COVID exposure with his family and comes in with hypoxia. An infectious disease consultation has been obtained for antibiotics. PAST MEDICAL HISTORY: Nothing significant. SOCIAL HISTORY: He does not smoke, drink, or use drugs. FAMILY HISTORY: Noncontributory. REVIEW OF SYSTEMS: RESPIRATORY: No fever, chills. He has cough. He has shortness of breath. No chest pain. CARDIAC: No chest pain. No palpitation. No dizziness. No syncope. GASTROINTESTINAL: No nausea. No vomiting. No abdominal pain or diarrhea. MEDICATIONS: As an inpatient, he is on ceftriaxone, azithromycin, dexamethasone, Cepacol, morphine, albuterol. ALLERGIES: No known drug allergies. PHYSICAL EXAMINATION: VITAL SIGNS: Temperature 97.5, T-max of 98.8, pulse of 90, respiratory rate of 19, blood pressure 133/85, O2 saturation of 95% on 15 L oxygen. Examination deferred due to COVID-19. LABORATORY DATA: White count 17.6, hemoglobin 15.7, MCV of 93, platelet count of 237. White count of 21.9 yesterday. Sodium 135, potassium 4.1, chloride 102, bicarb 23, BUN 26, creatinine 1, glucose 132, calcium 8.7, ferritin 894. Total bilirubin 0.8, AST 71, ALT 62, alkaline phosphatase 114, LDH 665. CK of 95, troponin 0, C-reactive protein pending. Beta-natriuretic peptide 389. Total protein 7.3, albumin 2.6, lipase of 156. UA showing 0-2 white cells. COVID-19 rapid test is negative. Nasal swab was negative for influenza A and B. Chest x-ray is showing bilateral infiltrates, likely multifocal pneumonia. ASSESSMENT: This is a 64-year-old gentleman with no significant past medical history, who comes in with cough and shortness of breath after exposure to his family with COVID and is found to have pneumonia, on 15 L oxygen with O2 saturation of 95%. PLAN: 1. Continue ceftriaxone and azithromycin for now. 2. Repeat COVID-19 test. 3. We will start the patient on remdesivir once COVID-19 test is positive. 4. The patient has received one dose of dexamethasone. Continue dexamethasone day 2 today. 5. Continue isolation. I would like to thank, Dr. Robert Guzman, for this consultation. Santosh Cheek M.D. DR: KITTY JOB#: [id number] CC: Robert Guzman D.O.
[2020-07-30] MEDS: dexAMETHasone 10mg/ml Inj IV SCH (15:15)
[2020-07-30 16:00] VITALS: BP 130/75
--- NOTE | 2020-07-30 16:01 | Cardiology Report ---
APPROVED REPORT EKG Measurement Heart [id number] MA [id number] <Conclusion> Normal sinus rhythm Possible Left atrial enlargement Borderline ECG
--- NOTE | 2020-07-30 19:24 | NUR ---
NURSE HAND-OFF REPORT: Important Events on Shift: PCR swab initiated. Patient Status: stable Diet: reg diet Pending Orders: PCR Novel swab Pending Results/Labs:[] Pending MD notification:[] Latest Vital Signs: Temperature 97.8 , Pulse 89 , B/P 130 /75 , Respiratory Rate 19 , O2 SAT 95 , Non-Rebreather, O2 Flow Rate 15.0 . Vital Sign Comment: [] EKG Rhythm: Sinus Rhythm Rhythm change?: N MD Notified?: - MD Response: Latest Orozco Fall Score: 35 Fall Risk: Medium Risk Safety Measures: Call light Within Reach, Bed Alarm Zone 1, Side Rails Side Rails x1, Bed position Low and Locked. Fall Precautions: Yellow Socks Yellow Gown Door Sign Patient Fall Education Report given to Elizabeth GONZALEZ
[2020-07-30 20:00] VITALS: BP 131/65
--- NOTE | 2020-07-30 20:05 | NUR ---
NURSE NOTES: Report given by Denise. Patient awake alert and makes needs known x4. Patient on non rebreather mask 15 LPM. Call light and bedside table within reach. Bed at lowest position locked with side rails up. Will continue with plan of care.
[2020-07-31] VITALS: BP 140/77
[2020-07-31 04:00] VITALS: BP 144/73
--- NOTE | 2020-07-31 04:00 | NUR ---
NURSE NOTES: Dr. Guzman made aware that patient had bradycardia throughout the night as low as 51 BPM but asymptomatic easy to arouse. BP is therapeutic range.
[2020-07-31 06:12] LABS: HEMATOCRIT 44.7 % (42.0-52.0); HEMOGLOBIN 15.8 G/DL (14.2-18.0); MEAN CORPUSCULAR VOLUME 94 FL (80-99); PLATELET COUNT 189 K/UL (150-450); RED BLOOD COUNT 4.75 M/UL (4.70-6.10); RED CELL DISTRIBUTION WIDTH 12.3 % (11.6-14.8); WHITE BLOOD COUNT 21.7 K/UL (4.8-10.8)
[2020-07-31 06:56] LABS: ANION GAP 8 mmol/L (5-15); BLOOD UREA NITROGEN 35 mg/dL (7-18); CALCIUM 8.6 MG/DL (8.5-10.1); CARBON DIOXIDE 26 MMOL/L (21-32); CHLORIDE 105 MMOL/L (98-107); CREATININE 1.1 MG/DL (0.55-1.30); SODIUM 139 MMOL/L (136-145)
--- NOTE | 2020-07-31 07:00 | NUR ---
NURSE NOTES: Patient c/o pain in upper chest and throat when he coughs. Pain does not radiate. patient refused to have morphine stating that it was too strong for the type of pain he had. He also refused another dose of throat lozenge stating it didn't help that much. Patient requested to have cough medication instead. Dr. Guzman made aware. New orders noted and carried out.
--- NOTE | 2020-07-31 07:00 | NUR ---
NURSE NOTES: Dr. Guzman gave orders for cardio consult with Dr. Bains for episode of Bradycardia last night. Noted and carried out.
--- NOTE | 2020-07-31 07:44 | NUR ---
NURSE NOTES: Received report from Elizabeth/CARLOS. Pt is in bed, sleeping. On 15L non-rebreather mask, pt complain of chest pressure when coughing. IV on right AC 20G, SL, patent and clean. Bed in the lowest position and locked, call light within reach, encouraged to use it when needed. Side rails up X3. Will continue plan of care.
[2020-07-31 08:00] VITALS: BP 127/69
[2020-07-31] MEDS: dexAMETHasone 10mg/ml Inj IV SCH (08:30)
[2020-07-31] MEDS: Heparin 5000 units/ml inj SUBQ SCH ×2 (08:31→21:52)
[2020-07-31] MEDS: cefTRIAXone 1 GM in D5W 55 ML IVPB SCH (09:03)
--- NOTE | 2020-07-31 09:11 | General Progress Note ---
Subjective Allergies: Coded Allergies: No Known Allergies (Unverified , 07/29/20) All Systems: reviewed and negative except above Subjective pulm tx asleep Objective Last 24 Hour Vital Signs Date Time Temp Pulse Resp B/P (MAP) Pulse Ox O2 Delivery O2 Flow Rate FiO2 07/31/20 08:00 97.9 68 18 127/69 (88) 93 07/31/20 04:00 51 07/31/20 04:00 98.9 61 18 144/73 (96) 94 07/31/20 00:00 56 07/31/20 00:00 98.8 59 18 140/77 (98) 95 07/30/20 21:00 Non-Rebreather 15.0 07/30/20 20:00 64 07/30/20 20:00 99.5 63 19 131/65 (87) 93 07/30/20 16:00 97.8 89 19 130/75 (93) 95 07/30/20 15:20 73 07/30/20 12:00 97.5 90 19 133/85 (101) 95 07/30/20 11:35 69 Intake and Output 07/30/20 07/31/20 19:00 07:00 Intake Total 450 ml 500 ml Output Total 900 ml 800 ml Balance -450 ml -300 ml Intake Oral 450 ml 500 ml Output Urine Total 900 ml 800 ml Laboratory Tests 07/31/20 05:35: White Blood Count 21.7H, Red Blood Count 4.75, Hemoglobin 15.8, Hematocrit 44.7, Mean Corpuscular Volume 94, Mean Corpuscular Hemoglobin 33.2H, Mean Corpuscular Hemoglobin Concent 35.3, Red Cell Distribution Width 12.3, Platelet Count 189, Mean Platelet Volume 6.2L, Neutrophils (%) (Auto) , Lymphocytes (%) (Auto) , Monocytes (%) (Auto) , Eosinophils (%) (Auto) , Basophils (%) (Auto) , Neutrophils % (Manual) [Pending], Lymphocytes % (Manual) [Pending], Platelet Estimate [Pending], Platelet Morphology [Pending], Sodium Level 139, Potassium Level 4.0, Chloride Level 105, Carbon Dioxide Level 26, Anion Gap 8, Blood Urea Nitrogen 35H, Creatinine 1.1, Estimat Glomerular Filtration Rate > 60, Glucose Level 132H, Calcium Level 8.6 Height (Feet): 5 Height (Inches): 5.00 Weight (Pounds): 160 General Appearance: lethargic EENT: normal ENT inspection Neck: normal alignment Cardiovascular: normal peripheral pulses, normal rate, regular rhythm Respiratory/Chest: chest wall non-tender, lungs clear, normal breath sounds Abdomen: normal bowel sounds, non tender, soft Extremities: normal inspection Edema: no edema noted Arm (L), no edema noted Arm (R), no edema noted Leg (L), no edema noted Leg (R), no edema noted Pedal (L), no edema noted Pedal (R), no edema noted Generalized Neurologic: motor weakness Skin: normal pigmentation, warm/dry Assessment/Plan Problem List: (1) Hypoxia ICD Codes: R09.02 - Hypoxemia SNOMED: 421756909 (2) Bilateral pneumonia ICD Codes: J18.9 - Pneumonia, unspecified organism SNOMED: 231967982, 016271087 (3) Acute respiratory failure with hypoxia ICD Codes: J96.01 - Acute respiratory failure with hypoxia SNOMED: 33872521, 028652626 (4) Bradycardia ICD Codes: R00.1 - Bradycardia, unspecified SNOMED: 97391226 (5) Malnutrition ICD Codes: E46 - Unspecified protein-calorie malnutrition SNOMED: 53531527 Status: unchanged Assessment/Plan: o2 pulm tx abx pt diet cardio f/u cbc bmp am Robert Guzman DO Jul 31, 2020 09:10
--- NOTE | 2020-07-31 09:16 | NUR ---
CASE MANAGEMENT:REVIEW 07/31/20 SI: BILATERAL PNA. ACUTE RESP FAILURE W/HYPOXIA 97.9 68 18 127/69 93% ON 15L NRB MASK WBC+21.7 BUN+35 IS: IV AZITHROMYCIN Q24 IV ROCEPHIN Q24 IV DECADRON Q24 HEPARIN SQ Q12 : TELEMETRY STATUS DCP: FROM HOME
[2020-07-31] MEDS: Azithromycin 500 MG in D5W 275 ML IV SCH (10:28)
[2020-07-31] MEDS: guaiFENesin /DM 10ml syrup ORAL PRN ×2 (10:38→16:32)
--- NOTE | 2020-07-31 10:42 | Infectious Diseases Prog Note ---
Assessment/Plan Assessment/Plan A; Pneumonia, suspected COVID19 disease Leukocytosis Hypoxemia Lactic acidosis PLAN: 1. Continue ceftriaxone and azithromycin for now. 2. Will COVID-19 PCR 3. We will start the patient on remdesivir once COVID-19 test is positive. 4. Continue dexamethasone day # 3 . 5. Continue isolation. Subjective ROS Limited/Unobtainable: Yes Constitutional: Denies: fever HEENT: Reports: other - sore throat Respiratory: Reports: shortness of breath, dry cough Allergies: Coded Allergies: No Known Allergies (Unverified , 07/29/20) Objective Last 24 Hour Vital Signs Date Time Temp Pulse Resp B/P (MAP) Pulse Ox O2 Delivery O2 Flow Rate FiO2 07/31/20 09:00 Non-Rebreather 15.0 07/31/20 08:00 97.9 68 18 127/69 (88) 93 07/31/20 08:00 63 07/31/20 04:00 51 07/31/20 04:00 98.9 61 18 144/73 (96) 94 07/31/20 00:00 56 07/31/20 00:00 98.8 59 18 140/77 (98) 95 07/30/20 21:00 Non-Rebreather 15.0 07/30/20 20:00 64 07/30/20 20:00 99.5 63 19 131/65 (87) 93 07/30/20 16:00 97.8 89 19 130/75 (93) 95 07/30/20 15:20 73 07/30/20 12:00 97.5 90 19 133/85 (101) 95 07/30/20 11:35 69 Height (Feet): 5 Height (Inches): 5.00 Weight (Pounds): 160 HEENT: mucous membranes moist Respiratory/Chest: other - on oxygen by NRB mask Cardiovascular: normal rate Abdomen: soft, non tender Neurologic/Psychiatric: alert, responsive Microbiology Date/Time Source Procedure Growth Status 07/29/20 19:25 Nasal Aspirate - Final Complete 07/29/20 19:25 Nasal Aspirate - Final Complete 07/29/20 14:30 Nasopharynx SARS-CoV-2 RdRp Gene Assay - Final Complete Laboratory Tests Test 07/31/20 05:35 White Blood Count 21.7 K/UL (4.8-10.8) H Red Blood Count 4.75 M/UL (4.70-6.10) Hemoglobin 15.8 G/DL (14.2-18.0) Hematocrit 44.7 % (42.0-52.0) Mean Corpuscular Volume 94 FL (80-99) Mean Corpuscular Hemoglobin 33.2 PG (27.0-31.0) H Mean Corpuscular Hemoglobin Concent 35.3 G/DL (32.0-36.0) Red Cell Distribution Width 12.3 % (11.6-14.8) Platelet Count 189 K/UL (150-450) Mean Platelet Volume 6.2 FL (6.5-10.1) L Neutrophils (%) (Auto) % (45.0-75.0) Lymphocytes (%) (Auto) % (20.0-45.0) Monocytes (%) (Auto) % (1.0-10.0) Eosinophils (%) (Auto) % (0.0-3.0) Basophils (%) (Auto) % (0.0-2.0) Neutrophils % (Manual) Pending Lymphocytes % (Manual) Pending Platelet Estimate Pending Platelet Morphology Pending Sodium Level 139 MMOL/L (136-145) Potassium Level 4.0 MMOL/L (3.5-5.1) Chloride Level 105 MMOL/L (98-107) Carbon Dioxide Level 26 MMOL/L (21-32) Anion Gap 8 mmol/L (5-15) Blood Urea Nitrogen 35 mg/dL (7-18) H Creatinine 1.1 MG/DL (0.55-1.30) Estimat Glomerular Filtration Rate > 60 mL/min (>60) Glucose Level 132 MG/DL (74-106) H Calcium Level 8.6 MG/DL (8.5-10.1) Current Medications Medications (Trade) Dose Ordered Sig/Fabiano Route PRN Reason Start Time Stop Time Status Last Admin Dose Admin Albuterol Sulfate (Proventil MDI) 2 puff Q4H PRN INH Shortness of Breath 07/29/20 22:45 10/27/20 22:44 Azithromycin 500 mg/Dextrose 275 ml @ 275 mls/hr Q24HRS IV 07/30/20 11:00 08/05/20 11:59 07/31/20 10:28 Ceftriaxone Sodium 1 gm/ Dextrose 55 ml @ 110 mls/hr Q24H IVPB 07/30/20 10:00 08/06/20 09:59 07/31/20 09:03 Cetylpyridinium Chloride (Cepacol) 1 lozg Q2H PRN [place] For Cough 07/30/20 21:00 10/28/20 20:59 07/31/20 09:02 Dexamethasone Sodium Phosphate (Decadron 10mg/ ml Inj) 6 mg DAILY IV 07/30/20 15:00 08/07/20 09:01 07/31/20 08:30 Guaifenesin/ Dextromethorphan (Robitussin DM Syrup) 15 ml Q6H PRN [place] For Cough 07/31/20 08:30 10/29/20 08:29 Heparin Sodium (Porcine) (Heparin 5000 units/ml) 5,000 units EVERY 12 HOURS SUBQ 07/30/20 09:00 09/13/20 08:59 07/31/20 08:31 Morphine Sulfate (Morphine Sulfate) 4 mg Q4H PRN IVP Severe Pain (Pain Scale 7-10) 07/30/20 04:45 08/06/20 04:44 Jose Antonio Klein MD Jul 31, 2020 10:42
[2020-07-31] MEDS ORDERED: ZINC LOZENGES1 EACH ORAL (11:45)
[2020-07-31] MEDS ORDERED: VITAMIN C250 MG ORAL (11:45)
[2020-07-31] MEDS ORDERED: PREDNISONE10 MG ORAL (11:45)
[2020-07-31] MEDS ORDERED: SILTUSSIN DM C118 ML PO (11:45)
--- NOTE | 2020-07-31 11:54 | Surgery Progress Note ---
Surgery Progress Note Subjective Additional Comments no acte events no n/v labs noted Objective Last 24 Hour Vital Signs Date Time Temp Pulse Resp B/P (MAP) Pulse Ox O2 Delivery O2 Flow Rate FiO2 07/31/20 09:00 Non-Rebreather 15.0 07/31/20 08:00 97.9 68 18 127/69 (88) 93 07/31/20 08:00 63 07/31/20 04:00 51 07/31/20 04:00 98.9 61 18 144/73 (96) 94 07/31/20 00:00 56 07/31/20 00:00 98.8 59 18 140/77 (98) 95 07/30/20 21:00 Non-Rebreather 15.0 07/30/20 20:00 64 07/30/20 20:00 99.5 63 19 131/65 (87) 93 07/30/20 16:00 97.8 89 19 130/75 (93) 95 07/30/20 15:20 73 07/30/20 12:00 97.5 90 19 133/85 (101) 95 I&O Intake and Output 07/30/20 07/31/20 19:00 07:00 Intake Total 450 ml 500 ml Output Total 900 ml 800 ml Balance -450 ml -300 ml Intake Oral 450 ml 500 ml Output Urine Total 900 ml 800 ml Cardiovascular: RSR Respiratory: clear, decreased breath sounds Abdomen: soft, non-tender, present bowel sounds Extremities: no tenderness, no cyanosis Laboratory Tests Test 07/31/20 05:35 White Blood Count 21.7 K/UL (4.8-10.8) H Red Blood Count 4.75 M/UL (4.70-6.10) Hemoglobin 15.8 G/DL (14.2-18.0) Hematocrit 44.7 % (42.0-52.0) Mean Corpuscular Volume 94 FL (80-99) Mean Corpuscular Hemoglobin 33.2 PG (27.0-31.0) H Mean Corpuscular Hemoglobin Concent 35.3 G/DL (32.0-36.0) Red Cell Distribution Width 12.3 % (11.6-14.8) Platelet Count 189 K/UL (150-450) Mean Platelet Volume 6.2 FL (6.5-10.1) L Neutrophils (%) (Auto) % (45.0-75.0) Lymphocytes (%) (Auto) % (20.0-45.0) Monocytes (%) (Auto) % (1.0-10.0) Eosinophils (%) (Auto) % (0.0-3.0) Basophils (%) (Auto) % (0.0-2.0) Neutrophils % (Manual) Pending Lymphocytes % (Manual) Pending Platelet Estimate Pending Platelet Morphology Pending Sodium Level 139 MMOL/L (136-145) Potassium Level 4.0 MMOL/L (3.5-5.1) Chloride Level 105 MMOL/L (98-107) Carbon Dioxide Level 26 MMOL/L (21-32) Anion Gap 8 mmol/L (5-15) Blood Urea Nitrogen 35 mg/dL (7-18) H Creatinine 1.1 MG/DL (0.55-1.30) Estimat Glomerular Filtration Rate > 60 mL/min (>60) Glucose Level 132 MG/DL (74-106) H Calcium Level 8.6 MG/DL (8.5-10.1) Plan Problems: (1) Hypoxia (2) Bilateral pneumonia (3) Acute respiratory failure with hypoxia Assessment & Plan: ards covid negative as per pulm id input appreciated abd pain likely cramping indigestion from ill ness ppi ordered okay for diet monitor intake am labs will follow with exam and Vern Gaytan Jul 31, 2020 11:54
[2020-07-31 12:00] VITALS: BP 132/75
--- NOTE | 2020-07-31 13:39 | Pulmonology Progress Note ---
Subjective ROS Limited/Unobtainable: Yes Interval Events: none major overnight per nursing Constitutional: Denies: fever HEENT: Repors: no symptoms Respiratory: Reports: dry cough, shortness of breath Cardiovascular: Reports: no symptoms Gastrointestinal/Abdominal: Reports: no symptoms Allergies: Coded Allergies: No Known Allergies (Unverified , 07/29/20) All Systems: reviewed and negative except above Objective Last 24 Hour Vital Signs Date Time Temp Pulse Resp B/P (MAP) Pulse Ox O2 Delivery O2 Flow Rate FiO2 07/31/20 12:00 97.7 73 18 132/75 (94) 93 07/31/20 12:00 74 07/31/20 09:00 Non-Rebreather 15.0 07/31/20 08:00 97.9 68 18 127/69 (88) 93 07/31/20 08:00 63 07/31/20 04:00 51 07/31/20 04:00 98.9 61 18 144/73 (96) 94 07/31/20 00:00 56 07/31/20 00:00 98.8 59 18 140/77 (98) 95 07/30/20 21:00 Non-Rebreather 15.0 07/30/20 20:00 64 07/30/20 20:00 99.5 63 19 131/65 (87) 93 07/30/20 16:00 97.8 89 19 130/75 (93) 95 07/30/20 15:20 73 Intake and Output 07/30/20 07/31/20 19:00 07:00 Intake Total 450 ml 500 ml Output Total 900 ml 800 ml Balance -450 ml -300 ml Intake Oral 450 ml 500 ml Output Urine Total 900 ml 800 ml Objective 07/31 no change 07/30 saturating at 94% on 15L NRBM General Appearance: no acute distress HEENT: normocephalic, atraumatic Respiratory: lungs clear Cardiovascular: normal rate, regular rhythm Abdomen: soft, non tender Microbiology Date/Time Source Procedure Growth Status 07/29/20 19:25 Nasal Aspirate - Final Complete 07/29/20 19:25 Nasal Aspirate - Final Complete 07/29/20 14:30 Nasopharynx SARS-CoV-2 RdRp Gene Assay - Final Complete Laboratory Tests 07/31/20 05:35: White Blood Count 21.7H, Red Blood Count 4.75, Hemoglobin 15.8, Hematocrit 44.7, Mean Corpuscular Volume 94, Mean Corpuscular Hemoglobin 33.2H, Mean Corpuscular Hemoglobin Concent 35.3, Red Cell Distribution Width 12.3, Platelet Count 189, Mean Platelet Volume 6.2L, Neutrophils (%) (Auto) , Lymphocytes (%) (Auto) , Monocytes (%) (Auto) , Eosinophils (%) (Auto) , Basophils (%) (Auto) , Differential Total Cells Counted 100, Neutrophils % (Manual) 90H, Lymphocytes % (Manual) 3L, Monocytes % (Manual) 7, Eosinophils % (Manual) 0, Basophils % (Manual) 0, Band Neutrophils 0, Platelet Estimate Adequate, Platelet Morphology Normal, Red Blood Cell Morphology Normal, Sodium Level 139, Potassium Level 4.0, Chloride Level 105, Carbon Dioxide Level 26, Anion Gap 8, Blood Urea Nitrogen 35H, Creatinine 1.1, Estimat Glomerular Filtration Rate > 60, Glucose Level 132H , Calcium Level 8.6 Current Medications Medications (Trade) Dose Ordered Sig/Fabiano Route PRN Reason Start Time Stop Time Status Last Admin Dose Admin Albuterol Sulfate (Proventil MDI) 2 puff Q4H PRN INH Shortness of Breath 07/29/20 22:45 10/27/20 22:44 Azithromycin 500 mg/Dextrose 275 ml @ 275 mls/hr Q24HRS IV 07/30/20 11:00 08/05/20 11:59 07/31/20 10:28 Ceftriaxone Sodium 1 gm/ Dextrose 55 ml @ 110 mls/hr Q24H IVPB 07/30/20 10:00 08/06/20 09:59 07/31/20 09:03 Cetylpyridinium Chloride (Cepacol) 1 lozg Q2H PRN [place] For Cough 07/30/20 21:00 10/28/20 20:59 07/31/20 12:07 Dexamethasone Sodium Phosphate (Decadron 10mg/ ml Inj) 6 mg DAILY IV 07/30/20 15:00 08/07/20 09:01 07/31/20 08:30 Guaifenesin/ Dextromethorphan (Robitussin DM Syrup) 15 ml Q6H PRN [place]AL For Cough 07/31/20 08:30 10/29/20 08:29 07/31/20 10:38 Heparin Sodium (Porcine) (Heparin 5000 units/ml) 5,000 units EVERY 12 HOURS SUBQ 07/30/20 09:00 09/13/20 08:59 07/31/20 08:31 Morphine Sulfate (Morphine Sulfate) 4 mg Q4H PRN IVP Severe Pain (Pain Scale 7-10) 07/30/20 04:45 08/06/20 04:44 Assessment/Plan Assessment/Plan 1. Respiratory alkalosis, likely secondary to tachypnea - monitor ABG - reassurance and supportive care 2. Hyponatremia - per primary MD 3. Elvated BUN - per primary MD 4. Hyperglycemia - BG control 5. Pneumonia with respiratory failure - On broad-spectrum Abx - on dexamethasone - Continue monitoring SaO2 - continue 15L NRBM at this point 6. COVID-19 rapid negative - COVID-19 PCR result pending 7. Elevated inflammatory markers; ferritin, D-Dimer - likely secondary to #5 - on heparin per primary MD The care of this patient was discussed with my supervising physician Time spent for this encounter was approximately 31 minutes Slava Hector Jul 31, 2020 13:39 Milton Antonio MD Jul 31, 2020 14:22
[2020-07-31 16:00] VITALS: BP 134/79
--- NOTE | 2020-07-31 16:04 | Cardiac Electrophysiology PN ---
Subjective Subjective [id number] Objective Last 24 Hour Vital Signs Date Time Temp Pulse Resp B/P (MAP) Pulse Ox O2 Delivery O2 Flow Rate FiO2 07/31/20 12:00 97.7 73 18 132/75 (94) 93 07/31/20 12:00 74 07/31/20 09:00 Non-Rebreather 15.0 07/31/20 08:00 97.9 68 18 127/69 (88) 93 07/31/20 08:00 63 07/31/20 04:00 51 07/31/20 04:00 98.9 61 18 144/73 (96) 94 07/31/20 00:00 56 07/31/20 00:00 98.8 59 18 140/77 (98) 95 07/30/20 21:00 Non-Rebreather 15.0 07/30/20 20:00 64 07/30/20 20:00 99.5 63 19 131/65 (87) 93 Intake and Output 07/30/20 07/31/20 19:00 07:00 Intake Total 450 ml 500 ml Output Total 900 ml 800 ml Balance -450 ml -300 ml Intake Oral 450 ml 500 ml Output Urine Total 900 ml 800 ml Laboratory Tests Test 07/31/20 05:35 White Blood Count 21.7 K/UL (4.8-10.8) H Red Blood Count 4.75 M/UL (4.70-6.10) Hemoglobin 15.8 G/DL (14.2-18.0) Hematocrit 44.7 % (42.0-52.0) Mean Corpuscular Volume 94 FL (80-99) Mean Corpuscular Hemoglobin 33.2 PG (27.0-31.0) H Mean Corpuscular Hemoglobin Concent 35.3 G/DL (32.0-36.0) Red Cell Distribution Width 12.3 % (11.6-14.8) Platelet Count 189 K/UL (150-450) Mean Platelet Volume 6.2 FL (6.5-10.1) L Neutrophils (%) (Auto) % (45.0-75.0) Lymphocytes (%) (Auto) % (20.0-45.0) Monocytes (%) (Auto) % (1.0-10.0) Eosinophils (%) (Auto) % (0.0-3.0) Basophils (%) (Auto) % (0.0-2.0) Differential Total Cells Counted 100 Neutrophils % (Manual) 90 % (45-75) H Lymphocytes % (Manual) 3 % (20-45) L Monocytes % (Manual) 7 % (1-10) Eosinophils % (Manual) 0 % (0-3) Basophils % (Manual) 0 % (0-2) Band Neutrophils 0 % (0-8) Platelet Estimate Adequate Platelet Morphology Normal Red Blood Cell Morphology Normal Sodium Level 139 MMOL/L (136-145) Potassium Level 4.0 MMOL/L (3.5-5.1) Chloride Level 105 MMOL/L (98-107) Carbon Dioxide Level 26 MMOL/L (21-32) Anion Gap 8 mmol/L (5-15) Blood Urea Nitrogen 35 mg/dL (7-18) H Creatinine 1.1 MG/DL (0.55-1.30) Estimat Glomerular Filtration Rate > 60 mL/min (>60) Glucose Level 132 MG/DL (74-106) H Calcium Level 8.6 MG/DL (8.5-10.1) Microbiology Date/Time Source Procedure Growth Status 07/29/20 19:25 Nasal Aspirate - Final Complete 07/29/20 19:25 Nasal Aspirate - Final Complete 07/29/20 14:30 Nasopharynx SARS-CoV-2 RdRp Gene Assay - Final Complete Navjot Bains MD Jul 31, 2020 16:04
--- NOTE | 2020-07-31 18:29 | Consultation ---
DATE OF CONSULTATION: 07/31/2020 CARDIOLOGY CONSULTATION CONSULTING PHYSICIAN: Navjot Bains MD REFERRING PHYSICIAN: Robert Guzman DO REASON FOR CONSULTATION: Bradycardia. HISTORY OF PRESENT ILLNESS: The patient is a 64-year-old gentleman with no past medical history, who presented to emergency room for increasing shortness of breath and hypoxia for the last 10 days. He was found as positive with COVID-19. He states that he had a negative COVID-19 test; however, his oxygen on room air was in 70s. Hence, the patient was admitted. The patient also had generalized weakness. He did not have nausea, vomiting, or diaphoresis. The patient was admitted; however, yesterday, the patient was bradycardic, heart rate of 50, and Cardiology consultation was obtained for further evaluation and management. REVIEW OF SYSTEMS: Negative other than what is mentioned in the history of present illness. PAST MEDICAL HISTORY: As mentioned above. FAMILY HISTORY: Noncontributory. SOCIAL HISTORY: He lives with family. Does not smoke or drink alcohol. PHYSICAL EXAMINATION: VITAL SIGNS: Show blood pressure of 132/75, pulse 74, respirations 18, temperature 97.7. HEAD AND NECK: Showed no JVD. LUNGS: Clear. CARDIOVASCULAR: Shows regular S1 and S2 with no gallop. ABDOMEN: Soft. EXTREMITIES: No pitting edema. LABORATORY AND DIAGNOSTIC DATA: His labs show white count of 21.7, hemoglobin of 15.9, hematocrit of 44, and platelet count is 189,000. Sodium 139, potassium 4.0, BUN of 30, creatinine 1.1. Lactic acid 2.6. First troponin is negative. BNP is 389. ASSESSMENT AND PLAN: 1. Bradycardia. The patient's heart rate is improved and currently 60s. The patient is not on any sinus-galen or AV-galen blocking agents. We will watch the patient on telemetry and we will get an echocardiogram for further evaluation and management. 2. Sepsis. White count 21,000. Rapid COVID is negative and PCR result is pending. Currently on IV antibiotic with dexamethasone and per Dr. Antonio. Thank you very much for allowing me to participate in the care of this patient. Please do not hesitate to contact me for any questions regarding my evaluation. Navjot Bains M.D. DR: Spenser JOB#: [id number] CC:
--- NOTE | 2020-07-31 19:24 | NUR ---
NURSE HAND-OFF REPORT: Important Events on Shift: Patient Status: Stable Diet: Regular Pending Orders: 2D echo Pending Results/Labs: Pending MD notification: Latest Vital Signs: Temperature 97.2 , Pulse 63 , B/P 134 /79 , Respiratory Rate 18 , O2 SAT 90 , Non-Rebreather, O2 Flow Rate 15.0 . Vital Sign Comment: Stable EKG Rhythm: Sinus Rhythm Rhythm change?: N MD Notified?: Moi Guzman MD Response: Latest Orozco Fall Score: 35 Fall Risk: Medium Risk Safety Measures: Call light Within Reach, Bed Alarm Zone 1, Side Rails Side Rails x1, Bed position Low and Locked. Fall Precautions: Yellow Socks Yellow Gown Door Sign Patient Fall Education Report given to Felicia/RN.
--- NOTE | 2020-07-31 19:30 | NUR ---
NURSE NOTES: Received report from CARLOS De La Paz; noted AOX4, comfortable in bed; with non-rebreather mask @ 15L/min, in no acute distress; pt encouraged to take deep breaths and activities as tolerated; ambulatory to the bathroom but offered urinal to prevent SOB on exertion; also encouraged to call for assistance; COVID-19 PCR results pending, PUI at this time; with IV site on R AC 20 gauge, saline locked, intact and patent; call light within reach; side rails x 2, bed locked and in low position; will continue to monitor.
[2020-07-31 20:00] VITALS: BP 141/80
[2020-08-01] VITALS (20 sets, daily range): BP systolic 75–203; BP diastolic 44–126
[2020-08-01] MEDS: guaiFENesin /DM 10ml syrup ORAL PRN ×2 (00:22→08:47)
[2020-08-01 04:53] LABS: HEMATOCRIT 43.9 % (42.0-52.0); HEMOGLOBIN 15.9 G/DL (14.2-18.0); MEAN CORPUSCULAR VOLUME 91 FL (80-99); PLATELET COUNT 142 K/UL (150-450); RED BLOOD COUNT 4.83 M/UL (4.70-6.10); RED CELL DISTRIBUTION WIDTH 13.3 % (11.6-14.8); WHITE BLOOD COUNT 17.7 K/UL (4.8-10.8)
[2020-08-01 05:15] LABS: ALANINE AMINOTRANSFERASE 43 U/L (12-78); ALBUMIN 2.4 G/DL (3.4-5.0); ALBUMIN/GLOBULIN RATIO 0.5 (1.0-2.7); ALKALINE PHOSPHATASE 220 U/L (46-116); ANION GAP 6 mmol/L (5-15); ASPARTATE AMINO TRANSFERASE 73 U/L (15-37); BILIRUBIN,TOTAL 0.7 MG/DL (0.2-1.0); BLOOD UREA NITROGEN 34 mg/dL (7-18); CALCIUM 8.7 MG/DL (8.5-10.1); CARBON DIOXIDE 27 MMOL/L (21-32); CHLORIDE 104 MMOL/L (98-107); CREATININE 1.1 MG/DL (0.55-1.30); POTASSIUM 4.5 MMOL/L (3.5-5.1); SODIUM 137 MMOL/L (136-145)
--- NOTE | 2020-08-01 07:00 | NUR ---
NURSE NOTES: Spoke to Sita from lab, relayed COVID-19 PCR result as positive; will endorse to AM RN and Dr. Cheek.
--- NOTE | 2020-08-01 07:08 | NUR ---
NURSE NOTES: Left urgent message to Dr. Cheek regarding positive COVID-19 PCR results; AM shift RN aware; awaiting for call back; pt remains on non-rebreather mask 15L O2; SOB on exertion.
--- NOTE | 2020-08-01 07:10 | NUR ---
NURSE HAND-OFF REPORT: Important Events on Shift: PCR results for COVID-19 positive; left message to Dr. Cheek regarding positive PCR results Patient Status: AOX4, stable Diet: regular Pending Orders: 2D echo Pending Results/Labs: AM labs Pending notification: Dr. Cheek Latest Vital Signs: Temperature 97.5 , Pulse 68 , B/P 144 /83 , Respiratory Rate 22 , O2 SAT 91 , Non-Rebreather, O2 Flow Rate 15.0 . Vital Sign Comment: within baseline EKG Rhythm: Sinus Rhythm Rhythm change?: N Notified?: N Response: Latest Orozco Fall Score: 35 Fall Risk: Medium Risk Safety Measures: Call light Within Reach, Bed Alarm Zone 1, Side Rails Side Rails x2, Bed position Low and Locked. Fall Precautions: Yellow Socks Yellow Gown Door Sign Patient Fall Education Report given to CARLOS Shane.
--- NOTE | 2020-08-01 07:35 | NUR ---
NURSE NOTES: Received report from Felicia/RN. Pt in bed, sleeping in semi-fowlers position. On 15L non-rebreather mask, no distress or SOB noted. IV on right AC 20G, SL patent and clean. Bed in the lowest position and locked. Call light within reach, encouraged to use it when needed. Side rails up x2. Will continue plan of care.
[2020-08-01] MEDS: dexAMETHasone 10mg/ml Inj IV SCH (08:47)
[2020-08-01] MEDS: Heparin 5000 units/ml inj SUBQ SCH (08:48)
--- NOTE | 2020-08-01 08:56 | General Progress Note ---
Subjective Constitutional: Reports: weakness Allergies: Coded Allergies: No Known Allergies (Unverified , 07/29/20) All Systems: reviewed and negative except above Subjective pulm tx asleep Objective Last 24 Hour Vital Signs Date Time Temp Pulse Resp B/P (MAP) Pulse Ox O2 Delivery O2 Flow Rate FiO2 08/01/20 08:00 97.7 79 22 145/85 (105) 93 08/01/20 04:00 68 08/01/20 04:00 97.5 65 22 144/83 (103) 91 08/01/20 00:00 98.1 69 20 147/81 (103) 92 08/01/20 00:00 62 07/31/20 21:00 Non-Rebreather 15.0 07/31/20 20:00 70 07/31/20 20:00 99.3 65 22 141/80 (100) 93 07/31/20 16:00 97.2 68 18 134/79 (97) 90 07/31/20 16:00 63 07/31/20 12:00 97.7 73 18 132/75 (94) 93 07/31/20 12:00 74 07/31/20 09:00 Non-Rebreather 15.0 Intake and Output 07/31/20 08/01/20 19:00 07:00 Intake Total 930 ml 400 ml Output Total 720 ml 600 ml Balance 210 ml -200 ml Intake Oral 600 ml 400 ml IV Total 330 ml Output Urine Total 720 ml 600 ml Laboratory Tests 08/01/20 04:00: White Blood Count 17.7H, Red Blood Count 4.83, Hemoglobin 15.9, Hematocrit 43.9, Mean Corpuscular Volume 91, Mean Corpuscular Hemoglobin 32.9H, Mean Corpuscular Hemoglobin Concent 36.2H, Red Cell Distribution Width 13.3, Platelet Count 142L, Mean Platelet Volume 6.1L, Neutrophils (%) (Auto) , Lymphocytes (%) (Auto) , Monocytes (%) (Auto) , Eosinophils (%) (Auto) , Basophils (%) (Auto) , Neutrophils % (Manual) [Pending], Lymphocytes % (Manual) [Pending], Platelet Est imate [Pending], Platelet Morphology [Pending], Sodium Level 137, Potassium Level 4.5, Chloride Level 104, Carbon Dioxide Level 27, Anion Gap 6, Blood Urea Nitrogen 34H, Creatinine 1.1, Estimat Glomerular Filtration Rate > 60, Glucose Level 109H, Lactic Acid Level 3.30H, Calcium Level 8.7, Total Bilirubin 0.7, Aspartate Amino Transf (AST/SGOT) 73H, Alanine Aminotransferase (ALT/SGPT) 43, Alkaline Phosphatase 220H, Troponin I 0.005, Pro-B-Type Natriuretic Peptide 593H , Total Protein 6.9, Albumin 2.4L, Globulin 4.5, Albumin/Globulin Ratio 0.5L, Thyroid Stimulating Hormone (TSH) 0.891, Free Thyroxine 1.12 08/01/20 05:55: Lactic Acid Level 3.60H Height (Feet): 5 Height (Inches): 5.00 Weight (Pounds): 160 General Appearance: lethargic EENT: normal ENT inspection Neck: normal alignment Cardiovascular: normal peripheral pulses, normal rate, regular rhythm Respiratory/Chest: chest wall non-tender, lungs clear, normal breath sounds Abdomen: normal bowel sounds, non tender, soft Extremities: normal inspection Edema: no edema noted Arm (L), no edema noted Arm (R), no edema noted Leg (L), no edema noted Leg (R), no edema noted Pedal (L), no edema noted Pedal (R), no edema noted Generalized Neurologic: motor weakness Skin: normal pigmentation, warm/dry Assessment/Plan Problem List: (1) Hypoxia ICD Codes: R09.02 - Hypoxemia SNOMED: 580669856 (2) Bilateral pneumonia ICD Codes: J18.9 - Pneumonia, unspecified organism SNOMED: 872891734, 679642183 (3) Acute respiratory failure with hypoxia ICD Codes: J96.01 - Acute respiratory failure with hypoxia SNOMED: 80015768, 331507822 (4) Bradycardia ICD Codes: R00.1 - Bradycardia, unspecified SNOMED: 93469378 (5) Malnutrition ICD Codes: E46 - Unspecified protein-calorie malnutrition SNOMED: 33567013 Status: unchanged Assessment/Plan: o2 pulm tx abx pt diet cardio f/u cbc bmp am ThomasRobertdmitry GarciaCharlene DO Aug 01, 2020 08:56
--- NOTE | 2020-08-01 09:23 | NUR ---
NURSE NOTES: Patient saturating 88-89% on 15L non-rebreather mask. Called Dr Hector who ordered ABG's. Waiting for results.
[2020-08-01] MEDS: cefTRIAXone 1 GM in D5W 55 ML IVPB SCH (10:00)
--- NOTE | 2020-08-01 10:53 | NUR ---
NURSE NOTES: Patient ABG's results were abnormal, JAMES Hector is aware, charge nurse is aware. No Bi-PAP available at this moment. Pt is on non-rebreather O2 sat 83%. No new orders at this time.
--- NOTE | 2020-08-01 10:58 | Surgery Progress Note ---
Surgery Progress Note Subjective Additional Comments leukocytosis trending down lactic acidosis no n/v Objective Last 24 Hour Vital Signs Date Time Temp Pulse Resp B/P (MAP) Pulse Ox O2 Delivery O2 Flow Rate FiO2 08/01/20 09:00 Non-Rebreather 15.0 08/01/20 08:00 97.7 79 22 145/85 (105) 93 08/01/20 08:00 68 08/01/20 04:00 68 08/01/20 04:00 97.5 65 22 144/83 (103) 91 08/01/20 00:00 98.1 69 20 147/81 (103) 92 08/01/20 00:00 62 07/31/20 21:00 Non-Rebreather 15.0 07/31/20 20:00 70 07/31/20 20:00 99.3 65 22 141/80 (100) 93 07/31/20 16:00 97.2 68 18 134/79 (97) 90 07/31/20 16:00 63 07/31/20 12:00 97.7 73 18 132/75 (94) 93 07/31/20 12:00 74 I&O Intake and Output 07/31/20 08/01/20 19:00 07:00 Intake Total 930 ml 400 ml Output Total 720 ml 600 ml Balance 210 ml -200 ml Intake Oral 600 ml 400 ml IV Total 330 ml Output Urine Total 720 ml 600 ml Cardiovascular: RSR Respiratory: decreased breath sounds Abdomen: soft, non-tender, present bowel sounds, non-distended Extremities: no tenderness, no cyanosis Laboratory Tests Test 08/01/20 04:00 08/01/20 05:55 08/01/20 10:14 White Blood Count 17.7 K/UL (4.8-10.8) H Red Blood Count 4.83 M/UL (4.70-6.10) Hemoglobin 15.9 G/DL (14.2-18.0) Hematocrit 43.9 % (42.0-52.0) Mean Corpuscular Volume 91 FL (80-99) Mean Corpuscular Hemoglobin 32.9 PG (27.0-31.0) H Mean Corpuscular Hemoglobin Concent 36.2 G/DL (32.0-36.0) H Red Cell Distribution Width 13.3 % (11.6-14.8) Platelet Count 142 K/UL (150-450) L Mean Platelet Volume 6.1 FL (6.5-10.1) L Neutrophils (%) (Auto) % (45.0-75.0) Lymphocytes (%) (Auto) % (20.0-45.0) Monocytes (%) (Auto) % (1.0-10.0) Eosinophils (%) (Auto) % (0.0-3.0) Basophils (%) (Auto) % (0.0-2.0) Differential Total Cells Counted 100 Neutrophils % (Manual) 94 % (45-75) H Lymphocytes % (Manual) 3 % (20-45) L Monocytes % (Manual) 3 % (1-10) Eosinophils % (Manual) 0 % (0-3) Basophils % (Manual) 0 % (0-2) Band Neutrophils 0 % (0-8) Platelet Estimate Decreased L Platelet Morphology Normal Red Blood Cell Morphology Normal Sodium Level 137 MMOL/L (136-145) Potassium Level 4.5 MMOL/L (3.5-5.1) Chloride Level 104 MMOL/L (98-107) Carbon Dioxide Level 27 MMOL/L (21-32) Anion Gap 6 mmol/L (5-15) Blood Urea Nitrogen 34 mg/dL (7-18) H Creatinine 1.1 MG/DL (0.55-1.30) Estimat Glomerular Filtration Rate > 60 mL/min (>60) Glucose Level 109 MG/DL (74-106) H Lactic Acid Level 3.30 mmol/L (0.4-2.0) H 3.60 mmol/L (0.66-2.22) H Calcium Level 8.7 MG/DL (8.5-10.1) Total Bilirubin 0.7 MG/DL (0.2-1.0) Aspartate Amino Transf (AST/SGOT) 73 U/L (15-37) H Alanine Aminotransferase (ALT/SGPT) 43 U/L (12-78) Alkaline Phosphatase 220 U/L (46-116) H Troponin I 0.005 ng/mL (0.000-0.056) Pro-B-Type Natriuretic Peptide 593 pg/mL (0-125) H Total Protein 6.9 G/DL (6.4-8.2) Albumin 2.4 G/DL (3.4-5.0) L Globulin 4.5 g/dL Albumin/Globulin Ratio 0.5 (1.0-2.7) L Thyroid Stimulating Hormone (TSH) 0.891 uiU/mL (0.358-3.740) Free Thyroxine 1.12 NG/DL (0.76-1.46) Arterial Blood pH 7.463 (7.350-7.450) Arterial Blood Partial Pressure CO2 32.6 mmHg (35.0-45.0) L Arterial Blood Partial Pressure O2 41.6 mmHg (75.0-100.0) Arterial Blood HCO3 22.8 mmol/L (22.0-26.0) Arterial Blood Oxygen Saturation 79.2 % (95-100) *L Arterial Blood Base Excess 0 (-2-2) Mehdi Test Positive Plan Problems: (1) Hypoxia (2) Bilateral pneumonia (3) Acute respiratory failure with hypoxia Assessment & Plan: ards covid negative as per pulm id input appreciated abd pain likely cramping indigestion from ill ness ppi ordered okay for diet monitor intake am labs will follow with exam and recs Vern Quevedo Aug 01, 2020 10:58
[2020-08-01] MEDS: Azithromycin 500 MG in D5W 275 ML IV SCH (11:26)
--- NOTE | 2020-08-01 11:39 | Infectious Diseases Prog Note ---
Assessment/Plan Assessment/Plan antibiotics : ceftriaxone, azithromycin A 1. covid 19 pneumonia on 15 liters O2 with 93 % saturation P 1. continue dexamethasone day 4 2. d/c ceftriaxone, azithromycin 3. start remdesivir 4. continue isolation Subjective Constitutional: Denies: fever, chills Respiratory: Reports: shortness of breath, dry cough Gastrointestinal/Abdominal: Denies: nausea, vomiting, diarrhea Musculoskeletal: Denies: pain Allergies: Coded Allergies: No Known Allergies (Unverified , 07/29/20) Objective Last 24 Hour Vital Signs Date Time Temp Pulse Resp B/P (MAP) Pulse Ox O2 Delivery O2 Flow Rate FiO2 08/01/20 09:00 Non-Rebreather 15.0 08/01/20 08:00 97.7 79 22 145/85 (105) 93 08/01/20 08:00 68 08/01/20 04:00 68 08/01/20 04:00 97.5 65 22 144/83 (103) 91 08/01/20 00:00 98.1 69 20 147/81 (103) 92 08/01/20 00:00 62 07/31/20 21:00 Non-Rebreather 15.0 07/31/20 20:00 70 07/31/20 20:00 99.3 65 22 141/80 (100) 93 07/31/20 16:00 97.2 68 18 134/79 (97) 90 07/31/20 16:00 63 07/31/20 12:00 97.7 73 18 132/75 (94) 93 07/31/20 12:00 74 Height (Feet): 5 Height (Inches): 5.00 Weight (Pounds): 160 Microbiology Date/Time Source Procedure Growth Status 07/30/20 13:38 Nasopharynx Coronavirus COVID-19 PCR (DEB) - Final Complete 07/29/20 19:25 Nasal Aspirate - Final Complete 07/29/20 19:25 Nasal Aspirate - Final Complete 07/29/20 14:30 Nasopharynx SARS-CoV-2 RdRp Gene Assay - Final Complete 07/29/20 14:30 Blood Blood Culture - Preliminary NO GROWTH AFTER 48 HOURS Resulted 07/29/20 14:15 Blood Blood Culture - Preliminary NO GROWTH AFTER 48 HOURS Resulted Laboratory Tests Test 08/01/20 04:00 08/01/20 05:55 08/01/20 10:14 White Blood Count 17.7 K/UL (4.8-10.8) H Red Blood Count 4.83 M/UL (4.70-6.10) Hemoglobin 15.9 G/DL (14.2-18.0) Hematocrit 43.9 % (42.0-52.0) Mean Corpuscular Volume 91 FL (80-99) Mean Corpuscular Hemoglobin 32.9 PG (27.0-31.0) H Mean Corpuscular Hemoglobin Concent 36.2 G/DL (32.0-36.0) H Red Cell Distribution Width 13.3 % (11.6-14.8) Platelet Count 142 K/UL (150-450) L Mean Platelet Volume 6.1 FL (6.5-10.1) L Neutrophils (%) (Auto) % (45.0-75.0) Lymphocytes (%) (Auto) % (20.0-45.0) Monocytes (%) (Auto) % (1.0-10.0) Eosinophils (%) (Auto) % (0.0-3.0) Basophils (%) (Auto) % (0.0-2.0) Differential Total Cells Counted 100 Neutrophils % (Manual) 94 % (45-75) H Lymphocytes % (Manual) 3 % (20-45) L Monocytes % (Manual) 3 % (1-10) Eosinophils % (Manual) 0 % (0-3) Basophils % (Manual) 0 % (0-2) Band Neutrophils 0 % (0-8) Platelet Estimate Decreased L Platelet Morphology Normal Red Blood Cell Morphology Normal Sodium Level 137 MMOL/L (136-145) Potassium Level 4.5 MMOL/L (3.5-5.1) Chloride Level 104 MMOL/L (98-107) Carbon Dioxide Level 27 MMOL/L (21-32) Anion Gap 6 mmol/L (5-15) Blood Urea Nitrogen 34 mg/dL (7-18) H Creatinine 1.1 MG/DL (0.55-1.30) Estimat Glomerular Filtration Rate > 60 mL/min (>60) Glucose Level 109 MG/DL (74-106) H Lactic Acid Level 3.30 mmol/L (0.4-2.0) H 3.60 mmol/L (0.66-2.22) H Calcium Level 8.7 MG/DL (8.5-10.1) Total Bilirubin 0.7 MG/DL (0.2-1.0) Aspartate Amino Transf (AST/SGOT) 73 U/L (15-37) H Alanine Aminotransferase (ALT/SGPT) 43 U/L (12-78) Alkaline Phosphatase 220 U/L (46-116) H Troponin I 0.005 ng/mL (0.000-0.056) Pro-B-Type Natriuretic Peptide 593 pg/mL (0-125) H Total Protein 6.9 G/DL (6.4-8.2) Albumin 2.4 G/DL (3.4-5.0) L Globulin 4.5 g/dL Albumin/Globulin Ratio 0.5 (1.0-2.7) L Thyroid Stimulating Hormone (TSH) 0.891 uiU/mL (0.358-3.740) Free Thyroxine 1.12 NG/DL (0.76-1.46) Arterial Blood pH 7.463 (7.350-7.450) Arterial Blood Partial Pressure CO2 32.6 mmHg (35.0-45.0) L Arterial Blood Partial Pressure O2 41.6 mmHg (75.0-100.0) Arterial Blood HCO3 22.8 mmol/L (22.0-26.0) Arterial Blood Oxygen Saturation 79.2 % (95-100) *L Arterial Blood Base Excess 0 (-2-2) Mehdi Test Positive Current Medications Medications (Trade) Dose Ordered Sig/Fabiano Route PRN Reason Start Time Stop Time Status Last Admin Dose Admin Albuterol Sulfate (Proventil MDI) 2 puff Q4H PRN INH Shortness of Breath 07/29/20 22:45 10/27/20 22:44 Azithromycin 500 mg/Dextrose 275 ml @ 275 mls/hr Q24HRS IV 07/30/20 11:00 08/05/20 11:59 08/01/20 11:26 Ceftriaxone Sodium 1 gm/ Dextrose 55 ml @ 110 mls/hr Q24H IVPB 07/30/20 10:00 08/06/20 09:59 08/01/20 10:00 Cetylpyridinium Chloride (Cepacol) 1 lozg Q2H PRN [place] For Cough 07/30/20 21:00 10/28/20 20:59 08/01/20 08:47 Dexamethasone Sodium Phosphate (Decadron 10mg/ ml Inj) 6 mg DAILY IV 07/30/20 15:00 08/07/20 09:01 08/01/20 08:47 Enoxaparin Sodium (Lovenox) 40 mg DAILY SUBQ 08/01/20 11:30 10/30/20 11:29 UNV Guaifenesin/ Dextromethorphan (Robitussin DM Syrup) 15 ml Q6H PRN ORAL For Cough 07/31/20 08:30 10/29/20 08:29 08/01/20 08:47 Morphine Sulfate (Morphine Sulfate) 4 mg Q4H PRN IVP Severe Pain (Pain Scale 7-10) 07/30/20 04:45 08/06/20 04:44 Sodium Chloride 1,000 ml @ 75 mls/hr [id number] IV 08/01/20 11:00 08/31/20 10:59 08/01/20 11:26 Santosh Cheek MD Aug 01, 2020 11:39
--- NOTE | 2020-08-01 12:36 | Pulmonology Progress Note ---
Subjective ROS Limited/Unobtainable: Yes Interval Events: desaturated on 15L NRB down to 75% Constitutional: Denies: fever, chills HEENT: Repors: no symptoms Respiratory: Reports: dry cough, shortness of breath Cardiovascular: Reports: no symptoms Gastrointestinal/Abdominal: Denies: nausea, vomiting, diarrhea Musculoskeletal: Denies: pain Allergies: Coded Allergies: No Known Allergies (Unverified , 07/29/20) All Systems: reviewed and negative except above Objective Last 24 Hour Vital Signs Date Time Temp Pulse Resp B/P (MAP) Pulse Ox O2 Delivery O2 Flow Rate FiO2 08/01/20 09:00 Non-Rebreather 15.0 08/01/20 08:00 97.7 79 22 145/85 (105) 93 08/01/20 08:00 68 08/01/20 04:00 68 08/01/20 04:00 97.5 65 22 144/83 (103) 91 08/01/20 00:00 98.1 69 20 147/81 (103) 92 08/01/20 00:00 62 07/31/20 21:00 Non-Rebreather 15.0 07/31/20 20:00 70 07/31/20 20:00 99.3 65 22 141/80 (100) 93 07/31/20 16:00 97.2 68 18 134/79 (97) 90 07/31/20 16:00 63 Intake and Output 07/31/20 08/01/20 19:00 07:00 Intake Total 930 ml 400 ml Output Total 720 ml 600 ml Balance 210 ml -200 ml Intake Oral 600 ml 400 ml IV Total 330 ml Output Urine Total 720 ml 600 ml Objective 08/01 desaturated down to 83% on 15L NRBM this AM 07/31 no change 07/30 saturating at 94% on 15L NRBM General Appearance: no acute distress HEENT: normocephalic, atraumatic Respiratory: lungs clear Cardiovascular: normal rate, regular rhythm Abdomen: soft, non tender Microbiology Date/Time Source Procedure Growth Status 07/30/20 13:38 Nasopharynx Coronavirus COVID-19 PCR (DEB) - Final Complete 07/29/20 19:25 Nasal Aspirate - Final Complete 07/29/20 19:25 Nasal Aspirate - Final Complete 07/29/20 14:30 Nasopharynx SARS-CoV-2 RdRp Gene Assay - Final Complete 07/29/20 14:30 Blood Blood Culture - Preliminary NO GROWTH AFTER 48 HOURS Resulted 07/29/20 14:15 Blood Blood Culture - Preliminary NO GROWTH AFTER 48 HOURS Resulted Laboratory Tests 08/01/20 04:00: White Blood Count 17.7H, Red Blood Count 4.83, Hemoglobin 15.9, Hematocrit 43.9, Mean Corpuscular Volume 91, Mean Corpuscular Hemoglobin 32.9H, Mean Corpuscular Hemoglobin Concent 36.2H, Red Cell Distribution Width 13.3, Platelet Count 142L, Mean Platelet Volume 6.1L, Neutrophils (%) (Auto) , Lymphocytes (%) (Auto) , Monocytes (%) (Auto) , Eosinophils (%) (Auto) , Basophils (%) (Auto) , Differential Total Cells Counted 100, Neutrophils % (Manual) 94H, Lymphocytes % (Manual) 3L, Monocytes % (Manual) 3, Eosinophils % (Manual) 0, Basophils % (Manual) 0, Band Neutrophils 0, Platelet Estimate DecreasedL, Platelet Morphology Normal, Red Blood Cell Morphology Normal, Sodium Level 137, Potassium Level 4.5, Chloride Level 104, Carbon Dioxide Level 27, Anion Gap 6, Blood Urea Nitrogen 34H, Creatinine 1.1, Estimat Glomerular Filtration Rate > 60, Glucose Level 109H, Lactic Acid Level 3.30H, Calcium Level 8.7, Total Bilirubin 0.7, Aspartate Amino Transf (AST/SGOT) 73H, Alanine Aminotransferase (ALT/SGPT) 43, Alkaline Phosphatase 220H, Troponin I 0.005, Pro-B-Type Natriuretic Peptide 593H , Total Protein 6.9, Albumin 2.4L, Globulin 4.5, Albumin/Globulin Ratio 0.5L, Thyroid Stimulating Hormone (TSH) 0.891, Free Thyroxine 1.12 08/01/20 05:55: Lactic Acid Level 3.60H 08/01/20 10:14: Arterial Blood pH 7.463H, Arterial Blood Partial Pressure CO2 32.6L, Arterial Blood Partial Pressure O2 41.6*L, Arterial Blood HCO3 22.8, Arterial Blood Oxygen Saturation 79.2*L, Arterial Blood Base Excess 0, Mehdi Test Positive Current Medications Medications (Trade) Dose Ordered Sig/Fabiano Route PRN Reason Start Time Stop Time Status Last Admin Dose Admin Albuterol Sulfate (Proventil MDI) 2 puff Q4H PRN INH Shortness of Breath 07/29/20 22:45 10/27/20 22:44 Cetylpyridinium Chloride (Cepacol) 1 lozg Q2H PRN [place] For Cough 07/30/20 21:00 10/28/20 20:59 08/01/20 08:47 Dexamethasone Sodium Phosphate (Decadron 10mg/ ml Inj) 6 mg DAILY IV 07/30/20 15:00 08/07/20 09:01 08/01/20 08:47 Enoxaparin Sodium (Lovenox) 40 mg DAILY SUBQ 08/01/20 14:00 10/30/20 13:59 Guaifenesin/ Dextromethorphan (Robitussin DM Syrup) 15 ml Q6H PRN ORAL For Cough 07/31/20 08:30 10/29/20 08:29 08/01/20 08:47 Morphine Sulfate (Morphine Sulfate) 4 mg Q4H PRN IVP Severe Pain (Pain Scale 7-10) 07/30/20 04:45 08/06/20 04:44 Remdesivir 100 mg/ Sodium Chloride 250 ml @ 250 mls/hr Q24H IV 08/02/20 15:00 08/05/20 15:59 Remdesivir 200 mg/ Sodium Chloride 250 ml @ 125 mls/hr ONCE IV 08/01/20 15:00 08/01/20 16:59 Sodium Chloride 1,000 ml @ 75 mls/hr [id number] IV 08/01/20 11:00 08/31/20 10:59 08/01/20 11:26 Assessment/Plan Assessment/Plan 1. Respiratory alkalosis, likely secondary to tachypnea - ABG worse today - instructed to take slow, deep breaths 2. Hyponatremia - per primary MD 3. Elvated BUN - per primary MD 4. Hyperglycemia - BG control 5. Pneumonia with respiratory failure - now off azithromycin and ceftriaxone (07/30-08/01) - on dexamethasone (07/30-) - now on remdesivir per ID (08/01-) - Continue monitoring SaO2 - desaturated to 83% on 15L NRBM, added high-flow oxygen along with HEPA filter in room; check repeat ABG - no BiPAP tubing available at this time (back ordered) 6. COVID-19 rapid negative - COVID-19 PCR result pending 7. Elevated inflammatory markers; ferritin, D-Dimer - likely secondary to #5 - now switched to Lovenox from heparin The care of this patient was discussed with my supervising physician Time spent for this encounter was approximately 31 minutes Slava Hector Aug 01, 2020 12:36
[2020-08-01] MEDS: Enoxaparin 40mg Inj SUBQ SCH (14:22)
--- NOTE | 2020-08-01 14:33 | NUR ---
NURSE NOTES: Contacted JAMES Hector to let him know about the patient's O2 level is at 83%-84%, patient is on high flow nasal cannula and non-rebreather mask. Waiting for a call back.
[2020-08-01] MEDS ORDERED: Loading Dose:Remdesivir 200mg/NS 210ml IV SCH ×2 (15:00)
--- NOTE | 2020-08-01 15:08 | Cardiac Electrophysiology PN ---
Assessment/Plan Assessment/Plan 1. Bradycardia. The patient's heart rate is improved and currently 60s. The patient is not on any sinus-galen or AV-galen blocking agents. Echocardiogram EF 60% 2. Sepsis. White count 21,000. Currently on IV antibiotic with dexamethasone and per Dr. Antonio. 3. Respiratory failure due to Covid PNA On high flow Subjective Subjective On high flow O2. May need to be intubated. EF 60% Objective Last 24 Hour Vital Signs Date Time Temp Pulse Resp B/P (MAP) Pulse Ox O2 Delivery O2 Flow Rate FiO2 08/01/20 12:00 97.9 88 24 141/80 (100) 89 08/01/20 12:00 86 08/01/20 11:45 86 High Flow 55.0 100 08/01/20 09:00 Non-Rebreather 15.0 08/01/20 08:00 97.7 79 22 145/85 (105) 93 08/01/20 08:00 68 08/01/20 04:00 68 08/01/20 04:00 97.5 65 22 144/83 (103) 91 08/01/20 00:00 98.1 69 20 147/81 (103) 92 08/01/20 00:00 62 07/31/20 21:00 Non-Rebreather 15.0 07/31/20 20:00 70 07/31/20 20:00 99.3 65 22 141/80 (100) 93 07/31/20 16:00 97.2 68 18 134/79 (97) 90 07/31/20 16:00 63 Intake and Output 07/31/20 08/01/20 19:00 07:00 Intake Total 930 ml 400 ml Output Total 720 ml 600 ml Balance 210 ml -200 ml Intake Oral 600 ml 400 ml IV Total 330 ml Output Urine Total 720 ml 600 ml Laboratory Tests Test 08/01/20 04:00 08/01/20 05:55 08/01/20 10:14 White Blood Count 17.7 K/UL (4.8-10.8) H Red Blood Count 4.83 M/UL (4.70-6.10) Hemoglobin 15.9 G/DL (14.2-18.0) Hematocrit 43.9 % (42.0-52.0) Mean Corpuscular Volume 91 FL (80-99) Mean Corpuscular Hemoglobin 32.9 PG (27.0-31.0) H Mean Corpuscular Hemoglobin Concent 36.2 G/DL (32.0-36.0) H Red Cell Distribution Width 13.3 % (11.6-14.8) Platelet Count 142 K/UL (150-450) L Mean Platelet Volume 6.1 FL (6.5-10.1) L Neutrophils (%) (Auto) % (45.0-75.0) Lymphocytes (%) (Auto) % (20.0-45.0) Monocytes (%) (Auto) % (1.0-10.0) Eosinophils (%) (Auto) % (0.0-3.0) Basophils (%) (Auto) % (0.0-2.0) Differential Total Cells Counted 100 Neutrophils % (Manual) 94 % (45-75) H Lymphocytes % (Manual) 3 % (20-45) L Monocytes % (Manual) 3 % (1-10) Eosinophils % (Manual) 0 % (0-3) Basophils % (Manual) 0 % (0-2) Band Neutrophils 0 % (0-8) Platelet Estimate Decreased L Platelet Morphology Normal Red Blood Cell Morphology Normal Sodium Level 137 MMOL/L (136-145) Potassium Level 4.5 MMOL/L (3.5-5.1) Chloride Level 104 MMOL/L (98-107) Carbon Dioxide Level 27 MMOL/L (21-32) Anion Gap 6 mmol/L (5-15) Blood Urea Nitrogen 34 mg/dL (7-18) H Creatinine 1.1 MG/DL (0.55-1.30) Estimat Glomerular Filtration Rate > 60 mL/min (>60) Glucose Level 109 MG/DL (74-106) H Lactic Acid Level 3.30 mmol/L (0.4-2.0) H 3.60 mmol/L (0.66-2.22) H Calcium Level 8.7 MG/DL (8.5-10.1) Total Bilirubin 0.7 MG/DL (0.2-1.0) Aspartate Amino Transf (AST/SGOT) 73 U/L (15-37) H Alanine Aminotransferase (ALT/SGPT) 43 U/L (12-78) Alkaline Phosphatase 220 U/L (46-116) H Troponin I 0.005 ng/mL (0.000-0.056) Pro-B-Type Natriuretic Peptide 593 pg/mL (0-125) H Total Protein 6.9 G/DL (6.4-8.2) Albumin 2.4 G/DL (3.4-5.0) L Globulin 4.5 g/dL Albumin/Globulin Ratio 0.5 (1.0-2.7) L Thyroid Stimulating Hormone (TSH) 0.891 uiU/mL (0.358-3.740) Free Thyroxine 1.12 NG/DL (0.76-1.46) Arterial Blood pH 7.463 (7.350-7.450) Arterial Blood Partial Pressure CO2 32.6 mmHg (35.0-45.0) L Arterial Blood Partial Pressure O2 41.6 mmHg (75.0-100.0) Arterial Blood HCO3 22.8 mmol/L (22.0-26.0) Arterial Blood Oxygen Saturation 79.2 % (95-100) *L Arterial Blood Base Excess 0 (-2-2) Mehdi Test Positive Microbiology Date/Time Source Procedure Growth Status 07/30/20 13:38 Nasopharynx Coronavirus COVID-19 PCR (DEB) - Final Complete 07/29/20 19:25 Nasal Aspirate - Final Complete 07/29/20 19:25 Nasal Aspirate - Final Complete Objective HEAD AND NECK: Showed no JVD. LUNGS: Clear. CARDIOVASCULAR: Shows regular S1 and S2 with no gallop. ABDOMEN: Soft. EXTREMITIES: No pitting edema. Navjot Bains MD Aug 01, 2020 15:08
--- NOTE | 2020-08-01 15:30 | NUR ---
Nursing Risk Control Officer Note: Informed by Mark GONZALEZblanket winder operator Nurse that patient is refusing intubation at this time. Room Assignment previously given for ICU transfer per MD orders. Dr Antonio made aware of the aforementioned.
--- NOTE | 2020-08-01 16:02 | NUR ---
CASE MANAGEMENT:REVIEW 08/01/20 SI: BILATERAL PNA. ACUTE RESP FAILURE W/HYPOXIA 97.9 88 24 141/80 89% ON 55L/100% HIGH FLOW PLT-142 BUN+34 PO2-41.6 IS: IV REMDESIVIR Q24 (07/29) IVF@75/HR IV DECADRON Q24 HEPARIN SQ Q12 : TELEMETRY STATUS DCP: FROM HOME
--- NOTE | 2020-08-01 17:55 | NUR ---
NURSE NOTES: intubated at the bedside by ER physician on first attempt using a 7.5 ET-tube and placing at 24cm at the lip. current ventilator setting of AC20, TV 500, Fio2 100% and peep of 8, saturations are 71-76% with respirations of 34-40, heart rate is 115-132 in sinus tachycardia. Chest X-ray taken and awaiting for results.
--- NOTE | 2020-08-01 18:10 | NUR ---
TRANSFER TO FLOOR: Patient transferred to ICU, per Dr Antonio's order. Report given to Edy/CARLOS. alarm security or surveillance monitor removed. Belongings and medications given to receiving nurse. Family informed of transfer.
--- NOTE | 2020-08-01 18:45 | NUR ---
NURSE NOTES: Left Message at Dr. Antonio office number at [phone]. awaiting for orders.
--- NOTE | 2020-08-01 18:49 | Diagnostic Imaging Report ---
History: TUBE PLCMT Exam: XR CXR 1 VIEW Comparison: 07/29/2020 FINDINGS/IMPRESSION: Endotracheal tube now present 2 cm above the yovana. Interval moderate to severe worsening of left greater than right mid to lower zone predominant ill-defined airspace opacities since the prior study. Size of the cardiac silhouette appears within limits.
--- NOTE | 2020-08-01 19:15 | NUR ---
NURSE NOTES: Dr. Antonio returned call to place order for restraints, Ativan 2mg IVp once, Versed drip, change setting for AC 16, TV: 500, Fio2 100% and peep of 8, ABG is that morning on 08/02/20 at 0400, and jenni.
[2020-08-01] MEDS ORDERED: LORazepam Inj 2mg/ml 1ml IV SCH (19:26)
[2020-08-01] MEDS ORDERED: Versed 50mg/NS 100ml 100 ML IV PRN (19:27)
--- NOTE | 2020-08-01 19:37 | NUR ---
NURSE HAND-OFF REPORT: Latest Vital Signs: Temperature 100.2 , Pulse 156 , B/P 181 /100 , Respiratory Rate 41 , O2 SAT 89 , Non-Rebreather, O2 Flow Rate 55.0 . Vital Sign Comment: EKG Rhythm: Sinus Tachycardia Rhythm change?: N Notified?: Moi Guzman MD Response: Latest Orozco Fall Score: 35 Fall Risk: Medium Risk Safety Measures: Call light Within Reach, Bed Alarm Zone 1, Side Rails Side Rails x2, Bed position Low and Locked. Fall Precautions: Yellow Socks Yellow Gown Door Sign Patient Fall Education Report given to CARLOS Solis.
--- NOTE | 2020-08-01 19:55 | NUR ---
NURSE NOTES: Received report from CARLOS Snow. Pt is resting on the bed agitated and still noted patient-Ventilator dyssynchrony. started Versed drip as titrate. noted BT: 102F. Applied cooling measure with ice. Pt has ETT and orally intubated. Vent dependent and setting with AC: 16, T: 500, P8, FiO2 100% and SaO2 87%. given suction and oral care. Iv site intact and no sign of infiltration and on running with NS @ 75cc/hr. On groundwater monitoring technician with ST and HR 145-150's. Pt has bilateral soft restraint and checked comfort and circulation. Placed fall precaution. on proper isolation for COVID-19. Will continue to care plan.
[2020-08-01] MEDS: Acetaminophen 650 MG SUPP RECTAL PRN (20:57)
--- NOTE | 2020-08-01 22:00 | NUR ---
NURSE NOTES: Pt is sedated on the bed and RASS -2. On running with Versed drip @ 13mg/hr and NS @ 75cc/hr. SaO2 70% with current Vent setting.Given suction and oral care. Noted Bs 234 mg/dl. Keep cooling measure. Noted drop the BP 75/49mmg and now noted 80/49mmHg. keep head down position. Placed fall precaution. Left message to Dr. Guzman, Dr. Up and Dr. Bains and awaiting call back. Will continue to monitor.
--- NOTE | 2020-08-01 22:30 | NUR ---
NURSE NOTES: Family; son ; Camilo Herrmann visited and saw the Patient. Updated Pt's condition to family. 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 Unable to find upper denture at this time. Report to charge nurse. Will continue to monitor .
[2020-08-02] VITALS (36 sets, daily range): BP systolic 93–167; BP diastolic 52–74
--- NOTE | 2020-08-02 | NUR ---
NURSE NOTES: Pt is sedated on the bed and RASS -2. On running with Versed drip 10mg/hr. SaO2 89-90% with current Vent setting. given suction and oral care. BP is 99/73mmHg and on restaurant crew with ST. Noted BT: 99.0F. Keep cooling measure. Place fall precaution. On proper isolation for COVID-19. Will continue to care plan.
[2020-08-02] MEDS: Midazolam HCl 50mg/10ml vial 100 MG in NS 180 ML IV PRN ×3 (00:36→20:29)
[2020-08-02] MEDS ORDERED: Midazolam HCl 50mg/10ml vial 100 MG in NS 180 ML IV PRN (01:00)
--- NOTE | 2020-08-02 02:00 | NUR ---
NURSE NOTES: Pt is sedated on the bed and RASS score -2. On running with Versed drip @ 10mg/hr. Turn and reposition. Keep cooling measure. BP: 93/58mmHg. On compliance monitor with ST and HR: 126's. Placed fall precaution. Will continue to monitor any change of condition.
--- NOTE | 2020-08-02 04:00 | NUR ---
NURSE NOTES: Morning care was done. Cleaned Pt and applied lotion and cream. SaO2 88% with current Vent setting. Given oral care and suction. on NPO. Noted 10cc/hr urine output via [place] cath. Rechecked BT: 99.2F. Keep cooling measure. changed position. Will continue to monitor any change of condition.
--- NOTE | 2020-08-02 06:00 | NUR ---
NURSE NOTES: Pt is sedated on the bed. RASS score -2. No sign of pain by FLACC scale. SaO2 89% with current Vent setting. Provided oral care and suction. Turn and reposition. will continue to monitor any change of condition.
[2020-08-02 06:39] LABS: HEMATOCRIT 43.5 % (42.0-52.0); HEMOGLOBIN 14.7 G/DL (14.2-18.0); MEAN CORPUSCULAR VOLUME 98 FL (80-99); PLATELET COUNT 87 K/UL (150-450); RED BLOOD COUNT 4.45 M/UL (4.70-6.10); RED CELL DISTRIBUTION WIDTH 13.2 % (11.6-14.8)
[2020-08-02 06:46] LABS: WHITE BLOOD COUNT 22.7 K/UL (4.8-10.8)
--- NOTE | 2020-08-02 07:30 | NUR ---
NURSE NOTES: NURSE NOTES: Patient received from Irma GONZALEZ. Patient sedated to goal of -2 on versed 10mg. Cardiac sound benign. ST on certified fraud examiner. Breath sounds diminished to LL. RR even and unlabored through ETT with ordered ventilator settings but desaturaing. Saturation 86-90%. Bowel sounds present. No residual from OGT. Abd soft. Radial pulses and pedal pulses present. BL soft wrist restraints on with good ROM, sensation and circulation. No edema present. peripheral IVs present and flushing. Fluids and versed infusing. Side rails up x2, call light within reach, bed low and locked.
--- NOTE | 2020-08-02 07:31 | NUR ---
NURSE HAND-OFF REPORT: Latest Vital Signs: Temperature 99.2 , Pulse 113 , B/P 111 /65 , Respiratory Rate 29 , O2 SAT 89 , Mechanical Ventilator, O2 Flow Rate . Vital Sign Comment: EKG Rhythm: Sinus Tachycardia Rhythm change?: N Notified?: Moi Guzman MD Response: Latest Orozco Fall Score: 35 Fall Risk: Medium Risk Safety Measures: Call light Within Reach, Bed Alarm Zone 1, Side Rails Side Rails x2, Bed position Low and Locked. Fall Precautions: Yellow Socks Yellow Gown Door Sign Patient Fall Education Report given to CARLOS Harrison. Pt is sedated on the bed and RASS -2. on running with Versed @ 10mg/hr.
[2020-08-02 07:38] LABS: ALBUMIN 2.1 G/DL (3.4-5.0); ALBUMIN/GLOBULIN RATIO 0.5 (1.0-2.7); BILIRUBIN,TOTAL 0.5 MG/DL (0.2-1.0); CALCIUM 7.3 MG/DL (8.5-10.1); CREATININE 2.7 MG/DL (0.55-1.30)
[2020-08-02 07:46] LABS: POTASSIUM 6.5 MMOL/L (3.5-5.1)
--- NOTE | 2020-08-02 07:51 | Diagnostic Imaging Report ---
EXAM: XR Abdomen, 2 Views CLINICAL HISTORY: NGT TECHNIQUE: Frontal view of the abdomen/pelvis with upright view of the abdomen. COMPARISON: No relevant imaging studies available. FINDINGS: Nasogastric tube tip projects at the proximal stomach and side-port near the gastroesophageal junction. Bowel gas pattern is nonobstructive. Airspace opacities at the mid/lower lobes. No acute skeletal findings. IMPRESSION: Nasogastric tube tip projects at the proximal stomach and side-port near the gastroesophageal junction.
--- NOTE | 2020-08-02 08:00 | NUR ---
NURSE NOTES: Patient found to have Fever. Cooling measures applied. Potassium level reported to Dr. Everett and order received for kayexalate. Per MD, will add more oders later.
[2020-08-02] MEDS ORDERED: Sodium Polystyrene Sulfonate 15gm Powder ORAL SCH (08:15)
[2020-08-02] MEDS: dexAMETHasone 10mg/ml Inj IV SCH (08:29)
[2020-08-02] MEDS: Enoxaparin 40mg Inj SUBQ SCH (08:30)
[2020-08-02] MEDS: D5 1/2NS 1,000 ML IV SCH ×3 (08:30→21:58)
--- NOTE | 2020-08-02 08:39 | General Progress Note ---
Subjective Constitutional: Reports: weakness Allergies: Coded Allergies: No Known Allergies (Unverified , 07/29/20) All Systems: reviewed and negative except above Subjective intubated sedated in icu Objective Last 24 Hour Vital Signs Date Time Temp Pulse Resp B/P (MAP) Pulse Ox O2 Delivery O2 Flow Rate FiO2 08/02/20 07:14 113 29 100 08/02/20 07:00 28 Mechanical Ventilator 100 08/02/20 07:00 113 28 111/65 (80) 89 08/02/20 06:30 113 28 122/61 (81) 90 08/02/20 06:00 114 27 114/59 (77) 89 08/02/20 06:00 27 Mechanical Ventilator 100 08/02/20 05:30 115 27 106/64 (78) 91 08/02/20 05:00 28 Mechanical Ventilator 100 08/02/20 05:00 115 28 108/62 (77) 90 08/02/20 04:30 114 28 101/57 (72) 86 08/02/20 04:00 Mechanical Ventilator 08/02/20 04:00 27 Mechanical Ventilator 100 08/02/20 04:00 99.2 117 27 99/63 (75) 88 08/02/20 04:00 100 08/02/20 04:00 118 08/02/20 03:31 121 29 100 08/02/20 03:30 119 27 99/60 (73) 88 08/02/20 03:00 27 Mechanical Ventilator 100 08/02/20 03:00 122 24 97/61 (73) 90 08/02/20 02:30 124 24 94/57 (69) 91 08/02/20 02:00 24 Mechanical Ventilator 100 08/02/20 02:00 126 24 93/58 (70) 91 08/02/20 01:30 129 25 94/61 (72) 90 08/02/20 01:00 134 25 102/52 (69) 90 08/02/20 01:00 25 Mechanical Ventilator 100 08/02/20 00:40 26 Mechanical Ventilator 100 08/02/20 00:36 26 Mechanical Ventilator 100 08/02/20 00:30 137 27 98/57 (71) 90 08/02/20 00:00 100 08/02/20 00:00 Mechanical Ventilator 08/02/20 00:00 138 08/02/20 00:00 99.0 137 28 99/73 (82) 89 08/01/20 23:40 28 Mechanical Ventilator 100 08/01/20 23:30 138 30 109/52 (71) 90 08/01/20 23:25 28 Mechanical Ventilator 100 08/01/20 23:12 137 28 100 08/01/20 23:10 29 Mechanical Ventilator 100 08/01/20 23:00 135 29 101/63 (76) 90 08/01/20 22:55 30 Mechanical Ventilator 100 08/01/20 22:30 127 31 93/52 (66) 73 08/01/20 22:00 113 31 80/49 (59) 70 08/01/20 21:55 31 Mechanical Ventilator 100 08/01/20 21:45 115 31 85/44 (58) 69 08/01/20 21:40 31 Mechanical Ventilator 100 08/01/20 21:30 121 32 75/49 (58) 68 08/01/20 21:27 101.0 08/01/20 21:25 32 Mechanical Ventilator 100 08/01/20 21:15 121 31 80/50 (60) 67 08/01/20 21:13 122 32 85/52 (63) 66 08/01/20 21:10 32 Mechanical Ventilator 100 08/01/20 21:00 123 32 86/51 (63) 66 08/01/20 20:55 40 Mechanical Ventilator 100 08/01/20 20:40 41 Mechanical Ventilator 100 08/01/20 20:30 153 41 139/89 (106) 79 08/01/20 20:25 41 Mechanical Ventilator 100 08/01/20 20:10 42 Mechanical Ventilator 100 08/01/20 20:01 147 42 146/78 90 08/01/20 20:00 Mechanical Ventilator 08/01/20 20:00 100 08/01/20 20:00 127 08/01/20 20:00 102.0 147 42 146/78 (100) 91 08/01/20 19:55 41 Mechanical Ventilator 100 08/01/20 19:31 156 41 181/100 89 08/01/20 19:30 100 08/01/20 18:45 157 38 191/104 (133) 70 08/01/20 18:30 149 39 198/107 (137) 73 08/01/20 18:27 Mechanical Ventilator 08/01/20 18:15 152 31 203/108 (139) 73 08/01/20 18:01 132 46 100 08/01/20 18:00 132 46 77 Mechanical Ventilator 100 08/01/20 18:00 100.2 109 33 185/126 (145) 08/01/20 17:50 100 08/01/20 16:00 86 08/01/20 16:00 98.4 99 24 139/83 (101) 86 08/01/20 15:25 85 High Flow 55.0 100 08/01/20 12:00 97.9 88 24 141/80 (100) 89 08/01/20 12:00 86 08/01/20 11:45 86 High Flow 55.0 100 08/01/20 09:00 Non-Rebreather 15.0 Intake and Output 08/01/20 08/02/20 19:00 07:00 Intake Total 315 ml 1076.4 ml Output Total 500 ml 210 ml Balance -185 ml 866.4 ml Intake Oral 240 ml IV Total 75 ml 1076.4 ml Output Urine Total 500 ml 210 ml Laboratory Tests 08/01/20 10:14: Arterial Blood pH 7.463H, Arterial Blood Partial Pressure CO2 32.6L, Arterial Blood Partial Pressure O2 41.6*L, Arterial Blood HCO3 22.8, Arterial Blood Oxygen Saturation 79.2*L, Arterial Blood Base Excess 0, Mehdi Test Positive 08/01/20 21:31: POC Whole Blood Glucose 236H 08/02/20 05:10: White Blood Count 22.7*H, Red Blood Count 4.45L, Hemoglobin 14.7, Hematocrit 43.5, Mean Corpuscular Volume 98, Mean Corpuscular Hemoglobin 33.1H, Mean Corpuscular Hemoglobin Concent 33.9, Red Cell Distribution Width 13.2, Platelet Count 87L, Mean Platelet Volume 7.3, Neutrophils (%) (Auto) , Lymphocytes (%) (Auto) , Monocytes (%) (Auto) , Eosinophils (%) (Auto) , Basophils (%) (Auto) , Neutrophils % (Manual) [Pending], Lymphocytes % (Manual) [Pending], Platelet Estimate [Pending], Platelet Morphology [Pending], Sodium Level 143, Potassium Level 6.5*H, Chloride Level 110H, Carbon Dioxide Level 24, Anion Gap 8, Blood Urea Nitrogen 51H, Creatinine 2.7#H, Estimat Glomerular Filtration Rate 23.8, Glucose Level 77, Lactic Acid Level 2.90H, Calcium Level 7.3L, Phosphorus Level 8.0H, Magnesium Level 2.9H, Total Bilirubin 0.5, Direct Bilirubin 0.2, Aspartate Amino Transf (AST/SGOT) 1152H, Alanine Aminotransferase (ALT/SGPT) 1105H, Alkaline Phosphatase 216H, Total Protein 6.0L, Albumin 2.1L, Globulin 3.9, Albumin/Globulin Ratio 0.5L Height (Feet): 5 Height (Inches): 5.00 Weight (Pounds): 160 General Appearance: lethargic EENT: normal ENT inspection Neck: normal alignment Cardiovascular: normal peripheral pulses, normal rate, regular rhythm Respiratory/Chest: chest wall non-tender, lungs clear, normal breath sounds Abdomen: normal bowel sounds, non tender, soft Extremities: normal inspection Edema: no edema noted Arm (L), no edema noted Arm (R), no edema noted Leg (L), no edema noted Leg (R), no edema noted Pedal (L), no edema noted Pedal (R), no edema noted Generalized Neurologic: motor weakness Skin: normal pigmentation, warm/dry Assessment/Plan Problem List: (1) Hypoxia ICD Codes: R09.02 - Hypoxemia SNOMED: 719650190 (2) Bilateral pneumonia ICD Codes: J18.9 - Pneumonia, unspecified organism SNOMED: 262248602, 262999845 (3) Acute respiratory failure with hypoxia ICD Codes: J96.01 - Acute respiratory failure with hypoxia SNOMED: 24760156, 869863048 (4) Bradycardia ICD Codes: R00.1 - Bradycardia, unspecified SNOMED: 74572861 (5) Malnutrition ICD Codes: E46 - Unspecified protein-calorie malnutrition SNOMED: 51631062 Status: unchanged Assessment/Plan: o2 pulm tx abx pt diet cardio f/u cbc bmp am Robert Guzman DO Aug 02, 2020 08:39
--- NOTE | 2020-08-02 09:57 | Infectious Diseases Prog Note ---
Assessment/Plan Assessment/Plan A; Pneumonia,with COVID19 disease Leukocytosis worsening Acute renal failure Hyperkalemia Hypoxemia Lactic acidosis Elevated transaminase PLAN: 1. Discontinue remdesivir 2. Continue dexamethasone day # 5 3. Continue isolation. Subjective ROS Limited/Unobtainable: Yes Constitutional: Reports: fever, other - Jh=580 Respiratory: Reports: other - intubated transferred to ICU Neurologic: Reports: confusion, other - on restraint Allergies: Coded Allergies: No Known Allergies (Unverified , 07/29/20) Objective Last 24 Hour Vital Signs Date Time Temp Pulse Resp B/P (MAP) Pulse Ox O2 Delivery O2 Flow Rate FiO2 08/02/20 09:46 32 Endotracheal Tube 100 08/02/20 07:14 113 29 100 08/02/20 07:00 28 Mechanical Ventilator 100 08/02/20 07:00 113 28 111/65 (80) 89 08/02/20 06:30 113 28 122/61 (81) 90 08/02/20 06:00 114 27 114/59 (77) 89 08/02/20 06:00 27 Mechanical Ventilator 100 08/02/20 05:30 115 27 106/64 (78) 91 08/02/20 05:00 28 Mechanical Ventilator 100 08/02/20 05:00 115 28 108/62 (77) 90 08/02/20 04:30 114 28 101/57 (72) 86 08/02/20 04:00 Mechanical Ventilator 08/02/20 04:00 27 Mechanical Ventilator 100 08/02/20 04:00 99.2 117 27 99/63 (75) 88 08/02/20 04:00 100 08/02/20 04:00 118 08/02/20 03:31 121 29 100 08/02/20 03:30 119 27 99/60 (73) 88 08/02/20 03:00 27 Mechanical Ventilator 100 08/02/20 03:00 122 24 97/61 (73) 90 08/02/20 02:30 124 24 94/57 (69) 91 08/02/20 02:00 24 Mechanical Ventilator 100 08/02/20 02:00 126 24 93/58 (70) 91 08/02/20 01:30 129 25 94/61 (72) 90 08/02/20 01:00 134 25 102/52 (69) 90 08/02/20 01:00 25 Mechanical Ventilator 100 08/02/20 00:40 26 Mechanical Ventilator 100 08/02/20 00:36 26 Mechanical Ventilator 100 08/02/20 00:30 137 27 98/57 (71) 90 08/02/20 00:00 100 08/02/20 00:00 Mechanical Ventilator 08/02/20 00:00 138 08/02/20 00:00 99.0 137 28 99/73 (82) 89 08/01/20 23:40 28 Mechanical Ventilator 100 08/01/20 23:30 138 30 109/52 (71) 90 08/01/20 23:25 28 Mechanical Ventilator 100 08/01/20 23:12 137 28 100 08/01/20 23:10 29 Mechanical Ventilator 100 08/01/20 23:00 135 29 101/63 (76) 90 08/01/20 22:55 30 Mechanical Ventilator 100 08/01/20 22:30 127 31 93/52 (66) 73 08/01/20 22:00 113 31 80/49 (59) 70 08/01/20 21:55 31 Mechanical Ventilator 100 08/01/20 21:45 115 31 85/44 (58) 69 08/01/20 21:40 31 Mechanical Ventilator 100 08/01/20 21:30 121 32 75/49 (58) 68 08/01/20 21:27 101.0 08/01/20 21:25 32 Mechanical Ventilator 100 08/01/20 21:15 121 31 80/50 (60) 67 08/01/20 21:13 122 32 85/52 (63) 66 08/01/20 21:10 32 Mechanical Ventilator 100 08/01/20 21:00 123 32 86/51 (63) 66 08/01/20 20:55 40 Mechanical Ventilator 100 08/01/20 20:40 41 Mechanical Ventilator 100 08/01/20 20:30 153 41 139/89 (106) 79 08/01/20 20:25 41 Mechanical Ventilator 100 08/01/20 20:10 42 Mechanical Ventilator 100 08/01/20 20:01 147 42 146/78 90 08/01/20 20:00 Mechanical Ventilator 08/01/20 20:00 100 08/01/20 20:00 127 08/01/20 20:00 102.0 147 42 146/78 (100) 91 08/01/20 19:55 41 Mechanical Ventilator 100 08/01/20 19:31 156 41 181/100 89 08/01/20 19:30 100 08/01/20 18:45 157 38 191/104 (133) 70 08/01/20 18:30 149 39 198/107 (137) 73 08/01/20 18:27 Mechanical Ventilator 08/01/20 18:15 152 31 203/108 (139) 73 08/01/20 18:01 132 46 100 08/01/20 18:00 132 46 77 Mechanical Ventilator 100 08/01/20 18:00 100.2 109 33 185/126 (145) 08/01/20 17:50 100 08/01/20 16:00 86 08/01/20 16:00 98.4 99 24 139/83 (101) 86 08/01/20 15:25 85 High Flow 55.0 100 08/01/20 12:00 97.9 88 24 141/80 (100) 89 08/01/20 12:00 86 08/01/20 11:45 86 High Flow 55.0 100 Height (Feet): 5 Height (Inches): 5.00 Weight (Pounds): 160 HEENT: other - orally intubated Respiratory/Chest: other - on ventilator Cardiovascular: tachycardia Abdomen: soft, non tender Extremities: no edema Neurologic/Psychiatric: disoriented Microbiology Date/Time Source Procedure Growth Status 07/30/20 13:38 Nasopharynx Coronavirus COVID-19 PCR (DEB) - Final Complete Laboratory Tests Test 08/01/20 10:14 08/01/20 21:31 08/02/20 05:10 Arterial Blood pH 7.463 (7.350-7.450) Arterial Blood Partial Pressure CO2 32.6 mmHg (35.0-45.0) L Arterial Blood Partial Pressure O2 41.6 mmHg (75.0-100.0) Arterial Blood HCO3 22.8 mmol/L (22.0-26.0) Arterial Blood Oxygen Saturation 79.2 % (95-100) *L Arterial Blood Base Excess 0 (-2-2) Mehdi Test Positive POC Whole Blood Glucose 236 MG/DL (74-106) H White Blood Count 22.7 K/UL (4.8-10.8) *H Red Blood Count 4.45 M/UL (4.70-6.10) L Hemoglobin 14.7 G/DL (14.2-18.0) Hematocrit 43.5 % (42.0-52.0) Mean Corpuscular Volume 98 FL (80-99) Mean Corpuscular Hemoglobin 33.1 PG (27.0-31.0) H Mean Corpuscular Hemoglobin Concent 33.9 G/DL (32.0-36.0) Red Cell Distribution Width 13.2 % (11.6-14.8) Platelet Count 87 K/UL (150-450) L Mean Platelet Volume 7.3 FL (6.5-10.1) Neutrophils (%) (Auto) % (45.0-75.0) Lymphocytes (%) (Auto) % (20.0-45.0) Monocytes (%) (Auto) % (1.0-10.0) Eosinophils (%) (Auto) % (0.0-3.0) Basophils (%) (Auto) % (0.0-2.0) Differential Total Cells Counted 100 Neutrophils % (Manual) 95 % (45-75) H Lymphocytes % (Manual) 1 % (20-45) L Monocytes % (Manual) 3 % (1-10) Eosinophils % (Manual) 0 % (0-3) Basophils % (Manual) 0 % (0-2) Band Neutrophils 1 % (0-8) Platelet Estimate Decreased L Platelet Morphology Normal Red Blood Cell Morphology Normal Anisocytosis Sodium Level 143 MMOL/L (136-145) Potassium Level 6.5 MMOL/L (3.5-5.1) *H Chloride Level 110 MMOL/L (98-107) H Carbon Dioxide Level 24 MMOL/L (21-32) Anion Gap 8 mmol/L (5-15) Blood Urea Nitrogen 51 mg/dL (7-18) H Creatinine 2.7 MG/DL (0.55-1.30) #H Estimat Glomerular Filtration Rate 23.8 mL/min (>60) Glucose Level 77 MG/DL (74-106) Lactic Acid Level 2.90 mmol/L (0.4-2.0) H Calcium Level 7.3 MG/DL (8.5-10.1) L Phosphorus Level 8.0 MG/DL (2.5-4.9) H Magnesium Level 2.9 MG/DL (1.8-2.4) H Total Bilirubin 0.5 MG/DL (0.2-1.0) Direct Bilirubin 0.2 MG/DL (0.0-0.3) Aspartate Amino Transf (AST/SGOT) 1152 U/L (15-37) H Alanine Aminotransferase (ALT/SGPT) 1105 U/L (12-78) H Alkaline Phosphatase 216 U/L (46-116) H Total Protein 6.0 G/DL (6.4-8.2) L Albumin 2.1 G/DL (3.4-5.0) L Globulin 3.9 g/dL Albumin/Globulin Ratio 0.5 (1.0-2.7) L Current Medications Medications (Trade) Dose Ordered Sig/Fabiano Route PRN Reason Start Time Stop Time Status Last Admin Dose Admin Acetaminophen (Tylenol) 650 mg Q4H PRN RECTAL Temp >100.5 08/01/20 20:30 08/31/20 20:29 08/01/20 20:57 Albuterol Sulfate (Proventil MDI) 2 puff Q4H PRN INH Shortness of Breath 07/29/20 22:45 10/27/20 22:44 Cetylpyridinium Chloride (Cepacol) 1 lozg Q2H PRN [place] For Cough 07/30/20 21:00 10/28/20 20:59 08/01/20 08:47 Dexamethasone Sodium Phosphate (Decadron 10mg/ ml Inj) 6 mg DAILY IV 07/30/20 15:00 08/07/20 09:01 08/02/20 08:29 Dextrose/Sodium Chloride 1,000 ml @ 150 mls/hr Q6H40M IV 08/02/20 08:30 09/01/20 08:29 08/02/20 08:30 Enoxaparin Sodium (Lovenox) 30 mg DAILY SUBQ 08/02/20 10:00 10/31/20 09:59 Guaifenesin/ Dextromethorphan (Robitussin DM Syrup) 15 ml Q6H PRN ORAL For Cough 07/31/20 08:30 10/29/20 08:29 08/01/20 08:47 Midazolam HCl 100 mg/Sodium Chloride 200 ml @ 0 mls/hr Q24H PRN IV Agitation 08/02/20 00:00 08/04/20 00:00 08/02/20 09:46 Morphine Sulfate (Morphine Sulfate) 4 mg Q4H PRN IVP Severe Pain (Pain Scale 7-10) 07/30/20 04:45 08/06/20 04:44 08/01/20 18:16 Remdesivir 100 mg/ Sodium Chloride 250 ml @ 250 mls/hr Q24H IV 08/02/20 15:00 08/05/20 15:59 Jose Antonio Klein MD Aug 02, 2020 09:57
[2020-08-02] MEDS: Enoxaparin 30mg Inj SUBQ SCH (10:00)
[2020-08-02] MEDS: Acetaminophen 650 MG SUPP RECTAL PRN (10:28)
--- NOTE | 2020-08-02 10:30 | NUR ---
ABG results obtained. Will report to Dr. Antonio.
--- NOTE | 2020-08-02 10:32 | Consultation ---
Consult Note Consult Note Asked to evaluate the patient at the request of Dr. Guzman for renal failure Patient seen in ICU Discussed with CARLOS Harrison Patient examined. Data reviewed. ER Note: HPI: 64-year-old male no reported past medical history presents with shortness of breath and hypoxemia. Patient apparently cough and shortness of breath for the past 10 days. He has positive sick contacts at home and his son with COVID- 19. He states he has had a negative COVID-19 test however his room air oxygen level was in the 70s today. Also complains of some generalized weakness. No nausea vomiting diarrhea. Allergies: No Known Allergies (Unverified , 07/29/20) COVID-19 Screening Contact w/high risk pt: No Experienced COVID-19 symptoms?: Yes COVID-19 Testing performed [employer]: Yes COVID-19 Screening: Negative COVID-19 COVID-19 Testing Source: [employer] Vital Signs Date Time Temp Pulse Resp B/P (MAP) Pulse Ox O2 Delivery O2 Flow Rate FiO2 07/29/20 13:57 97.9 72 34 148/80 (102) 79 Room Air Examination deferred due to COVID-19. . 08/02/20 05:10: White Blood Count 22.7*H, Red Blood Count 4.45L, Hemoglobin 14.7, Hematocrit 43.5, Mean Corpuscular Volume 98, Mean Corpuscular Hemoglobin 33.1H, Mean Corpuscular Hemoglobin Concent 33.9, Red Cell Distribution Width 13.2, Platelet Count 87L, Mean Platelet Volume 7.3, Neutrophils (%) (Auto) , Lymphocytes (%) (Auto) , Monocytes (%) (Auto) , Eosinophils (%) (Auto) , Basophils (%) (Auto) , Differential Total Cells Counted 100, Neutrophils % (Manual) 95H, Lymphocytes % (Manual) 1L, Monocytes % (Manual) 3, Eosinophils % (Manual) 0, Basophils % (Manual) 0, Band Neutrophils 1, Platelet Estimate DecreasedL, Platelet Morphology Normal, Red Blood Cell Morphology Normal, Anisocytosis , Sodium Level 143, Potassium Level 6.5*H, Chloride Level 110H, Carbon Dioxide Level 24, Anion Gap 8, Blood Urea Nitrogen 51H, Creatinine 2.7#H, Estimat Glomerular Filtration Rate 23.8, Glucose Level 77, Lactic Acid Level 2.90H, Calcium Level 7.3L, Phosphorus Level 8.0H, Magnesium Level 2.9H, Total Bilirubin 0.5, Direct Bilirubin 0.2, Aspartate Amino Transf (AST/SGOT) 1152H, Alanine Aminotransferase (ALT/SGPT) 1105H, Alkaline Phosphatase 216H, Total Protein 6.0L, Albumin 2.1L, Globulin 3.9, Albumin/Globulin Ratio 0.5L 08/02/20 09:45: Lactic Acid Level 2.40H 08/02/20 10:48: Arterial Blood pH 7.257L, Arterial Blood Partial Pressure CO2 48.5H, Arterial Blood Partial Pressure O2 55.1L, Arterial Blood HCO3 21.1L, Arterial Blood Oxygen Saturation 86.4*L, Arterial Blood Base Excess -6.1L, Mehdi Test Positive . Assessment/Plan Acute renal failure. Most likely due to hypotensive and shock from 8 PM last night to 5 AM this morning. Hyperkalemia. Acute hypoxic respiratory failure. Pneumonia with COVID-19. Elevated transaminase, most likely shock liver. plan: Albumin bolus Increase IV fluid Kayexalate for high potassium Monitor renal parameters Avoid nephrotoxic's Keep the blood pressure in check Per consultants Jared Everett MD Aug 02, 2020 10:32
--- NOTE | 2020-08-02 11:03 | Surgery Progress Note ---
Surgery Progress Note Subjective Additional Comments acute decline liver insufficiency intubated in icu renal insufficiency labs noted Objective Last 24 Hour Vital Signs Date Time Temp Pulse Resp B/P (MAP) Pulse Ox O2 Delivery O2 Flow Rate FiO2 08/02/20 10:00 111 29 130/68 (88) 87 08/02/20 09:46 32 Endotracheal Tube 100 08/02/20 09:00 114 30 128/64 (85) 89 08/02/20 08:00 101.9 113 29 136/66 (89) 88 08/02/20 07:14 113 29 100 08/02/20 07:00 28 Mechanical Ventilator 100 08/02/20 07:00 113 28 111/65 (80) 89 08/02/20 06:30 113 28 122/61 (81) 90 08/02/20 06:00 114 27 114/59 (77) 89 08/02/20 06:00 27 Mechanical Ventilator 100 08/02/20 05:30 115 27 106/64 (78) 91 08/02/20 05:00 28 Mechanical Ventilator 100 08/02/20 05:00 115 28 108/62 (77) 90 08/02/20 04:30 114 28 101/57 (72) 86 08/02/20 04:00 Mechanical Ventilator 08/02/20 04:00 27 Mechanical Ventilator 100 08/02/20 04:00 99.2 117 27 99/63 (75) 88 08/02/20 04:00 100 08/02/20 04:00 118 08/02/20 03:31 121 29 100 08/02/20 03:30 119 27 99/60 (73) 88 08/02/20 03:00 27 Mechanical Ventilator 100 08/02/20 03:00 122 24 97/61 (73) 90 08/02/20 02:30 124 24 94/57 (69) 91 08/02/20 02:00 24 Mechanical Ventilator 100 08/02/20 02:00 126 24 93/58 (70) 91 08/02/20 01:30 129 25 94/61 (72) 90 08/02/20 01:00 134 25 102/52 (69) 90 08/02/20 01:00 25 Mechanical Ventilator 100 08/02/20 00:40 26 Mechanical Ventilator 100 08/02/20 00:36 26 Mechanical Ventilator 100 08/02/20 00:30 137 27 98/57 (71) 90 08/02/20 00:00 100 08/02/20 00:00 Mechanical Ventilator 08/02/20 00:00 138 08/02/20 00:00 99.0 137 28 99/73 (82) 89 08/01/20 23:40 28 Mechanical Ventilator 100 08/01/20 23:30 138 30 109/52 (71) 90 08/01/20 23:25 28 Mechanical Ventilator 100 08/01/20 23:12 137 28 100 08/01/20 23:10 29 Mechanical Ventilator 100 08/01/20 23:00 135 29 101/63 (76) 90 08/01/20 22:55 30 Mechanical Ventilator 100 08/01/20 22:30 127 31 93/52 (66) 73 08/01/20 22:00 113 31 80/49 (59) 70 08/01/20 21:55 31 Mechanical Ventilator 100 08/01/20 21:45 115 31 85/44 (58) 69 08/01/20 21:40 31 Mechanical Ventilator 100 08/01/20 21:30 121 32 75/49 (58) 68 08/01/20 21:27 101.0 08/01/20 21:25 32 Mechanical Ventilator 100 08/01/20 21:15 121 31 80/50 (60) 67 08/01/20 21:13 122 32 85/52 (63) 66 08/01/20 21:10 32 Mechanical Ventilator 100 08/01/20 21:00 123 32 86/51 (63) 66 08/01/20 20:55 40 Mechanical Ventilator 100 08/01/20 20:40 41 Mechanical Ventilator 100 08/01/20 20:30 153 41 139/89 (106) 79 08/01/20 20:25 41 Mechanical Ventilator 100 08/01/20 20:10 42 Mechanical Ventilator 100 08/01/20 20:01 147 42 146/78 90 08/01/20 20:00 Mechanical Ventilator 08/01/20 20:00 100 08/01/20 20:00 127 08/01/20 20:00 102.0 147 42 146/78 (100) 91 08/01/20 19:55 41 Mechanical Ventilator 100 08/01/20 19:31 156 41 181/100 89 08/01/20 19:30 100 08/01/20 18:45 157 38 191/104 (133) 70 08/01/20 18:30 149 39 198/107 (137) 73 08/01/20 18:27 Mechanical Ventilator 08/01/20 18:15 152 31 203/108 (139) 73 08/01/20 18:01 132 46 100 08/01/20 18:00 132 46 77 Mechanical Ventilator 100 08/01/20 18:00 100.2 109 33 185/126 (145) 08/01/20 17:50 100 08/01/20 16:00 86 08/01/20 16:00 98.4 99 24 139/83 (101) 86 08/01/20 15:25 85 High Flow 55.0 100 08/01/20 12:00 97.9 88 24 141/80 (100) 89 08/01/20 12:00 86 08/01/20 11:45 86 High Flow 55.0 100 I&O Intake and Output 08/01/20 08/02/20 19:00 07:00 Intake Total 315 ml 1076.4 ml Output Total 500 ml 210 ml Balance -185 ml 866.4 ml Intake Oral 240 ml IV Total 75 ml 1076.4 ml Output Urine Total 500 ml 210 ml Dressing: saturated Cardiovascular: RSR Respiratory: decreased breath sounds Abdomen: soft, non-tender, present bowel sounds, non-distended, decreased bowel sounds Extremities: no edema, no tenderness, no cyanosis Laboratory Tests Test 08/01/20 21:31 08/02/20 05:10 08/02/20 09:45 08/02/20 10:48 POC Whole Blood Glucose 236 MG/DL (74-106) H White Blood Count 22.7 K/UL (4.8-10.8) *H Red Blood Count 4.45 M/UL (4.70-6.10) L Hemoglobin 14.7 G/DL (14.2-18.0) Hematocrit 43.5 % (42.0-52.0) Mean Corpuscular Volume 98 FL (80-99) Mean Corpuscular Hemoglobin 33.1 PG (27.0-31.0) H Mean Corpuscular Hemoglobin Concent 33.9 G/DL (32.0-36.0) Red Cell Distribution Width 13.2 % (11.6-14.8) Platelet Count 87 K/UL (150-450) L Mean Platelet Volume 7.3 FL (6.5-10.1) Neutrophils (%) (Auto) % (45.0-75.0) Lymphocytes (%) (Auto) % (20.0-45.0) Monocytes (%) (Auto) % (1.0-10.0) Eosinophils (%) (Auto) % (0.0-3.0) Basophils (%) (Auto) % (0.0-2.0) Differential Total Cells Counted 100 Neutrophils % (Manual) 95 % (45-75) H Lymphocytes % (Manual) 1 % (20-45) L Monocytes % (Manual) 3 % (1-10) Eosinophils % (Manual) 0 % (0-3) Basophils % (Manual) 0 % (0-2) Band Neutrophils 1 % (0-8) Platelet Estimate Decreased L Platelet Morphology Normal Red Blood Cell Morphology Normal Anisocytosis Sodium Level 143 MMOL/L (136-145) Potassium Level 6.5 MMOL/L (3.5-5.1) *H Chloride Level 110 MMOL/L (98-107) H Carbon Dioxide Level 24 MMOL/L (21-32) Anion Gap 8 mmol/L (5-15) Blood Urea Nitrogen 51 mg/dL (7-18) H Creatinine 2.7 MG/DL (0.55-1.30) #H Estimat Glomerular Filtration Rate 23.8 mL/min (>60) Glucose Level 77 MG/DL (74-106) Lactic Acid Level 2.90 mmol/L (0.4-2.0) H 2.40 mmol/L (0.66-2.22) H Calcium Level 7.3 MG/DL (8.5-10.1) L Phosphorus Level 8.0 MG/DL (2.5-4.9) H Magnesium Level 2.9 MG/DL (1.8-2.4) H Total Bilirubin 0.5 MG/DL (0.2-1.0) Direct Bilirubin 0.2 MG/DL (0.0-0.3) Aspartate Amino Transf (AST/SGOT) 1152 U/L (15-37) H Alanine Aminotransferase (ALT/SGPT) 1105 U/L (12-78) H Alkaline Phosphatase 216 U/L (46-116) H Total Protein 6.0 G/DL (6.4-8.2) L Albumin 2.1 G/DL (3.4-5.0) L Globulin 3.9 g/dL Albumin/Globulin Ratio 0.5 (1.0-2.7) L Arterial Blood pH 7.257 (7.350-7.450) Arterial Blood Partial Pressure CO2 48.5 mmHg (35.0-45.0) H Arterial Blood Partial Pressure O2 55.1 mmHg (75.0-100.0) L Arterial Blood HCO3 21.1 mmol/L (22.0-26.0) L Arterial Blood Oxygen Saturation 86.4 % (95-100) *L Arterial Blood Base Excess -6.1 (-2-2) L Mehdi Test Positive Plan Problems: (1) Hypoxia (2) Bilateral pneumonia (3) Acute respiratory failure with hypoxia Assessment & Plan: ards covid negative as per pulm id input appreciated abd pain likely cramping indigestion from ill ness ppi ordered okay for diet monitor intake am labs will follow with exam and recs acute decline intubated in ICU on vent liver insufficiency acute hepatic in sufficiency renal insufficiency no acute surgical intervention needs resuscitation meds reviewed (4) Bradycardia (5) Malnutrition Vern Quevedo Aug 02, 2020 11:03
--- NOTE | 2020-08-02 12:00 | NUR ---
NURSE NOTES: Ordeer received for vent setting change. RT aware. Addendum: 08/02/20 at 1939 by BOLIVAR HARMAN RN Fever improved. New OGT placed due to previouly placed OGT not flushing.
--- NOTE | 2020-08-02 12:24 | Pulmonology Progress Note ---
Subjective ROS Limited/Unobtainable: Yes Interval Events: Intubated yesterday Constitutional: Reports: no symptoms, other - [id number] HEENT: Repors: no symptoms Respiratory: Reports: no symptoms Cardiovascular: Reports: no symptoms Gastrointestinal/Abdominal: Reports: no symptoms; Denies: nausea, vomiting, diarrhea Musculoskeletal: Denies: pain Allergies: Coded Allergies: No Known Allergies (Unverified , 07/29/20) All Systems: reviewed and negative except above Objective Last 24 Hour Vital Signs Date Time Temp Pulse Resp B/P (MAP) Pulse Ox O2 Delivery O2 Flow Rate FiO2 08/02/20 11:27 105 08/02/20 10:00 111 29 130/68 (88) 87 08/02/20 09:46 32 Endotracheal Tube 100 08/02/20 09:00 114 30 128/64 (85) 89 08/02/20 08:11 114 08/02/20 08:00 100 08/02/20 08:00 Mechanical Ventilator 08/02/20 08:00 101.9 113 29 136/66 (89) 88 08/02/20 07:14 113 29 100 08/02/20 07:00 28 Mechanical Ventilator 100 08/02/20 07:00 113 28 111/65 (80) 89 08/02/20 06:30 113 28 122/61 (81) 90 08/02/20 06:00 114 27 114/59 (77) 89 08/02/20 06:00 27 Mechanical Ventilator 100 08/02/20 05:30 115 27 106/64 (78) 91 08/02/20 05:00 28 Mechanical Ventilator 100 08/02/20 05:00 115 28 108/62 (77) 90 08/02/20 04:30 114 28 101/57 (72) 86 08/02/20 04:00 Mechanical Ventilator 08/02/20 04:00 27 Mechanical Ventilator 100 08/02/20 04:00 99.2 117 27 99/63 (75) 88 08/02/20 04:00 100 08/02/20 04:00 118 08/02/20 03:31 121 29 100 08/02/20 03:30 119 27 99/60 (73) 88 08/02/20 03:00 27 Mechanical Ventilator 100 08/02/20 03:00 122 24 97/61 (73) 90 08/02/20 02:30 124 24 94/57 (69) 91 08/02/20 02:00 24 Mechanical Ventilator 100 08/02/20 02:00 126 24 93/58 (70) 91 08/02/20 01:30 129 25 94/61 (72) 90 08/02/20 01:00 134 25 102/52 (69) 90 08/02/20 01:00 25 Mechanical Ventilator 100 08/02/20 00:40 26 Mechanical Ventilator 100 08/02/20 00:36 26 Mechanical Ventilator 100 08/02/20 00:30 137 27 98/57 (71) 90 08/02/20 00:00 100 08/02/20 00:00 Mechanical Ventilator 08/02/20 00:00 138 08/02/20 00:00 99.0 137 28 99/73 (82) 89 08/01/20 23:40 28 Mechanical Ventilator 100 08/01/20 23:30 138 30 109/52 (71) 90 08/01/20 23:25 28 Mechanical Ventilator 100 08/01/20 23:12 137 28 100 08/01/20 23:10 29 Mechanical Ventilator 100 08/01/20 23:00 135 29 101/63 (76) 90 08/01/20 22:55 30 Mechanical Ventilator 100 08/01/20 22:30 127 31 93/52 (66) 73 08/01/20 22:00 113 31 80/49 (59) 70 08/01/20 21:55 31 Mechanical Ventilator 100 08/01/20 21:45 115 31 85/44 (58) 69 08/01/20 21:40 31 Mechanical Ventilator 100 08/01/20 21:30 121 32 75/49 (58) 68 08/01/20 21:27 101.0 08/01/20 21:25 32 Mechanical Ventilator 100 08/01/20 21:15 121 31 80/50 (60) 67 08/01/20 21:13 122 32 85/52 (63) 66 08/01/20 21:10 32 Mechanical Ventilator 100 08/01/20 21:00 123 32 86/51 (63) 66 08/01/20 20:55 40 Mechanical Ventilator 100 08/01/20 20:40 41 Mechanical Ventilator 100 08/01/20 20:30 153 41 139/89 (106) 79 08/01/20 20:25 41 Mechanical Ventilator 100 08/01/20 20:10 42 Mechanical Ventilator 100 08/01/20 20:01 147 42 146/78 90 08/01/20 20:00 Mechanical Ventilator 08/01/20 20:00 100 08/01/20 20:00 127 08/01/20 20:00 102.0 147 42 146/78 (100) 91 08/01/20 19:55 41 Mechanical Ventilator 100 08/01/20 19:31 156 41 181/100 89 08/01/20 19:30 100 08/01/20 18:45 157 38 191/104 (133) 70 08/01/20 18:30 149 39 198/107 (137) 73 08/01/20 18:27 Mechanical Ventilator 08/01/20 18:15 152 31 203/108 (139) 73 08/01/20 18:01 132 46 100 08/01/20 18:00 132 46 77 Mechanical Ventilator 100 08/01/20 18:00 100.2 109 33 185/126 (145) 08/01/20 17:50 100 08/01/20 16:00 86 08/01/20 16:00 98.4 99 24 139/83 (101) 86 08/01/20 15:25 85 High Flow 55.0 100 Intake and Output 08/01/20 08/02/20 19:00 07:00 Intake Total 315 ml 1076.4 ml Output Total 500 ml 210 ml Balance -185 ml 866.4 ml Intake Oral 240 ml IV Total 75 ml 1076.4 ml Output Urine Total 500 ml 210 ml General Appearance: no acute distress HEENT: normocephalic, atraumatic Respiratory: lungs clear Cardiovascular: normal rate, regular rhythm Abdomen: soft, non tender Microbiology Date/Time Source Procedure Growth Status 07/30/20 13:38 Nasopharynx Coronavirus COVID-19 PCR (DEB) - Final Complete Laboratory Tests 08/01/20 21:31: POC Whole Blood Glucose 236H 08/02/20 05:10: White Blood Count 22.7*H, Red Blood Count 4.45L, Hemoglobin 14.7, Hematocrit 43.5, Mean Corpuscular Volume 98, Mean Corpuscular Hemoglobin 33.1H, Mean Corpuscular Hemoglobin Concent 33.9, Red Cell Distribution Width 13.2, Platelet Count 87L, Mean Platelet Volume 7.3, Neutrophils (%) (Auto) , Lymphocytes (%) (Auto) , Monocytes (%) (Auto) , Eosinophils (%) (Auto) , Basophils (%) (Auto) , Differential Total Cells Counted 100, Neutrophils % (Manual) 95H, Lymphocytes % (Manual) 1L, Monocytes % (Manual) 3, Eosinophils % (Manual) 0, Basophils % (Manual) 0, Band Neutrophils 1, Platelet Estimate DecreasedL, Platelet Morphology Normal, Red Blood Cell Morphology Normal, Anisocytosis , Sodium Level 143, Potassium Level 6.5*H, Chloride Level 110H, Carbon Dioxide Level 24, Anion Gap 8, Blood Urea Nitrogen 51H, Creatinine 2.7#H, Estimat Glomerular Filtration Rate 23.8, Glucose Level 77, Lactic Acid Level 2.90H, Calcium Level 7.3L, Phosphorus Level 8.0H, Magnesium Level 2.9H, Total Bilirubin 0.5, Direct Bilirubin 0.2, Aspartate Amino Transf (AST/SGOT) 1152H, Alanine Aminotransferase (ALT/SGPT) 1105H, Alkaline Phosphatase 216H, Total Protein 6.0L, Albumin 2.1L, Globulin 3.9, Albumin/Globulin Ratio 0.5L 08/02/20 09:45: Lactic Acid Level 2.40H 08/02/20 10:48: Arterial Blood pH 7.257L, Arterial Blood Partial Pressure CO2 48.5H, Arterial Blood Partial Pressure O2 55.1L, Arterial Blood HCO3 21.1L, Arterial Blood Oxygen Saturation 86.4*L, Arterial Blood Base Excess -6.1L, Mehdi Test Positive Current Medications Medications (Trade) Dose Ordered Sig/Fabiano Route PRN Reason Start Time Stop Time Status Last Admin Dose Admin Acetaminophen (Tylenol) 650 mg Q4H PRN RECTAL Temp >100.5 08/01/20 20:30 08/31/20 20:29 08/02/20 10:28 Albuterol Sulfate (Proventil MDI) 2 puff Q4H PRN INH Shortness of Breath 07/29/20 22:45 10/27/20 22:44 Cetylpyridinium Chloride (Cepacol) 1 lozg Q2H PRN [place] For Cough 07/30/20 21:00 10/28/20 20:59 08/01/20 08:47 Dexamethasone Sodium Phosphate (Decadron 10mg/ ml Inj) 6 mg DAILY IV 07/30/20 15:00 08/07/20 09:01 08/02/20 08:29 Dextrose/Sodium Chloride 1,000 ml @ 150 mls/hr Q6H40M IV 08/02/20 08:30 09/01/20 08:29 08/02/20 08:30 Enoxaparin Sodium (Lovenox) 30 mg DAILY SUBQ 08/02/20 10:00 10/31/20 09:59 Guaifenesin/ Dextromethorphan (Robitussin DM Syrup) 15 ml Q6H PRN ORAL For Cough 07/31/20 08:30 10/29/20 08:29 08/01/20 08:47 Midazolam HCl 100 mg/Sodium Chloride 200 ml @ 0 mls/hr Q24H PRN IV Agitation 08/02/20 00:00 08/04/20 00:00 08/02/20 09:46 Morphine Sulfate (Morphine Sulfate) 4 mg Q4H PRN IVP Severe Pain (Pain Scale 7-10) 07/30/20 04:45 08/06/20 04:44 08/01/20 18:16 Pantoprazole (Protonix) 40 mg EVERY 12 HOURS IVP 08/02/20 21:00 09/01/20 20:59 Assessment/Plan Assessment/Plan 1. Respiratory Failure - intubated yesterday - remains hypoxic - will increase PEEP to 12 - continue 100% Fio2 2. Hyponatremia - per primary MD 3. Hyperglycemia - BG control 5. Pneumonia - abx per ID - on dexamethasone (07/30-) - now on remdesivir per ID (08/01-) 6. COVID-19 rapid negative - COVID-19 PCR positive 7. Elevated inflammatory markers; ferritin, D-Dimer - likely secondary to #5 - On Lovenox Milton Antonio MD Aug 02, 2020 12:24
--- NOTE | 2020-08-02 14:00 | NUR ---
NURSE NOTES: O2 much improved. New OGT in place.
--- NOTE | 2020-08-02 14:49 | Diagnostic Imaging Report ---
EXAM: XR Abdomen, 2 Views CLINICAL HISTORY: TUBE PLCMT TECHNIQUE: Frontal view of the abdomen/pelvis with upright view of the abdomen. COMPARISON: 08/02/2020 0657 FINDINGS: Intraperitoneal space: No free air. Gastrointestinal tract: Gas is seen in the nondilated terminal ileum and colon. Bones/joints: No significant abnormality. Tubes, lines and devices: Nasogastric tube tip projects near the gastroduodenal junction. IMPRESSION: Nasogastric tube tip projects near the gastroduodenal junction.
[2020-08-02] MEDS ORDERED: Maintenance Dose:Remdesivir 100mg/NS 230ml x 4 Doses IV SCH ×2 (15:00)
--- NOTE | 2020-08-02 16:00 | NUR ---
NURSE NOTES: Fever resolved. Patient stable.
--- NOTE | 2020-08-02 18:37 | NUR ---
NURSE NOTES: Dr. Antonio called and voicemail left reporting abg results and current vent settings awating call back.
--- NOTE | 2020-08-02 19:30 | NUR ---
NURSE NOTES: Received report from CARLOS Reina. Pt is sedated on the bed and RASS score -2. Pt has ETT and orally intubated. Vent dependent and setting with AC: 16, T: 500, P 12, FiO2 100% and SaO2 95%. given suction and oral care. Iv site intact and no sign of infiltration and on running with Versed drip @ 10mg/hr and D51/2NS @150cc/hr. On quality control director with ST and HR 100's. Pt has Vernon cath and patent and drainage well. Pt has OGT and in placed and on NPO. checked BT: 99.2F. keep cooling measure. Pt has bilateral soft restraint and checked comfort and circulation. Placed fall precaution. on proper isolation for COVID-19. Will continue to care plan.
--- NOTE | 2020-08-02 19:30 | NUR ---
NURSE HAND-OFF REPORT: Latest Vital Signs: Temperature 98.3 , Pulse 94 , B/P 152 /72 , Respiratory Rate 21 , O2 SAT 98 , Endotracheal Tube, O2 Flow Rate . Vital Sign Comment: STABLE. EKG Rhythm: Sinus Rhythm Rhythm change?: N Notified?: Moi Guzman MD Response: Latest Orozco Fall Score: 35 Fall Risk: Medium Risk Safety Measures: Call light Within Reach, Bed Alarm Zone 1, Side Rails Side Rails x2, Bed position Low and Locked. Fall Precautions: Yellow Socks Yellow Gown Door Sign Patient Fall Education Report given to Irma GONZALEZ. Plan of care endorsed.
[2020-08-02] MEDS: Pantoprazole Inj IVP SCH (20:19)
--- NOTE | 2020-08-02 21:00 | NUR ---
NURSE NOTES: Get call from Family: son. updated Pt's condition.
--- NOTE | 2020-08-02 22:00 | NUR ---
NURSE NOTES: Pt is sedated and sleeping on the bed. SaO2 97% with current Vent setting. Given suction and oral care. Turn and repositio. Will continue to monitor any change of condition.
--- NOTE | 2020-08-02 22:06 | Cardiac Electrophysiology PN ---
Assessment/Plan Assessment/Plan 1. Bradycardia, heart rate is improved and currently 60s. The patient is not on any sinus-galen or AV-galen blocking agents. Echocardiogram EF 60% 2. Sepsis. White count 21,000. Currently on IV antibiotic with dexamethasone and per Dr. Antonio. 3. Respiratory failure due to Covid PNA intubated on 100% Fio2 and PEEP 12 4. Acute renal failure with CR 2.5 5. Shock Liver with AST and ALT >1100 Subjective Subjective Now in ICU intubated on 100% Fio2 and PEP 12. Remdesevir DCed for renal failure and high LFTS. Has fever and thrombocytopenia. BP dropped to 80s but got better with iv fluis. EF 60% Objective Last 24 Hour Vital Signs Date Time Temp Pulse Resp B/P (MAP) Pulse Ox O2 Delivery O2 Flow Rate FiO2 08/02/20 20:29 21 Mechanical Ventilator 100 08/02/20 20:00 100 08/02/20 20:00 96 08/02/20 19:15 94 21 152/72 (98) 98 08/02/20 19:00 21 Endotracheal Tube 100 08/02/20 19:00 92 22 152/69 (96) 97 08/02/20 18:50 95 22 100 08/02/20 18:00 95 20 151/70 (97) 96 08/02/20 18:00 27 Endotracheal Tube 100 08/02/20 17:00 94 22 156/71 (99) 95 08/02/20 17:00 27 Endotracheal Tube 100 08/02/20 16:00 Mechanical Ventilator 08/02/20 16:00 94 20 141/69 (93) 95 08/02/20 16:00 94 08/02/20 16:00 28 Endotracheal Tube 100 08/02/20 16:00 100 08/02/20 16:00 98.3 08/02/20 15:05 95 23 100 08/02/20 15:00 28 Endotracheal Tube 100 08/02/20 15:00 97 24 145/68 (93) 94 08/02/20 14:00 101 25 140/70 (93) 94 08/02/20 14:00 25 Endotracheal Tube 100 08/02/20 13:00 28 Endotracheal Tube 100 08/02/20 13:00 100 29 152/72 (98) 96 08/02/20 12:20 105 27 100 08/02/20 12:00 100 08/02/20 12:00 Mechanical Ventilator 08/02/20 12:00 28 Endotracheal Tube 100 08/02/20 12:00 99.9 104 28 142/68 (92) 91 08/02/20 11:27 105 08/02/20 11:00 28 Endotracheal Tube 100 08/02/20 11:00 99.9 08/02/20 11:00 106 28 136/68 (90) 88 08/02/20 10:00 28 Endotracheal Tube 100 08/02/20 10:00 111 29 130/68 (88) 87 08/02/20 09:46 32 Endotracheal Tube 100 08/02/20 09:00 30 Endotracheal Tube 100 08/02/20 09:00 114 30 128/64 (85) 89 08/02/20 08:11 114 08/02/20 08:00 100 08/02/20 08:00 Mechanical Ventilator 08/02/20 08:00 101.9 113 29 136/66 (89) 88 08/02/20 08:00 30 Endotracheal Tube 100 08/02/20 07:14 113 29 100 08/02/20 07:00 28 Mechanical Ventilator 100 08/02/20 07:00 113 28 111/65 (80) 89 08/02/20 06:30 113 28 122/61 (81) 90 08/02/20 06:00 114 27 114/59 (77) 89 08/02/20 06:00 27 Mechanical Ventilator 100 08/02/20 05:30 115 27 106/64 (78) 91 08/02/20 05:00 28 Mechanical Ventilator 100 08/02/20 05:00 115 28 108/62 (77) 90 08/02/20 04:30 114 28 101/57 (72) 86 08/02/20 04:00 Mechanical Ventilator 08/02/20 04:00 27 Mechanical Ventilator 100 08/02/20 04:00 99.2 117 27 99/63 (75) 88 08/02/20 04:00 100 08/02/20 04:00 118 08/02/20 03:31 121 29 100 08/02/20 03:30 119 27 99/60 (73) 88 08/02/20 03:00 27 Mechanical Ventilator 100 08/02/20 03:00 122 24 97/61 (73) 90 08/02/20 02:30 124 24 94/57 (69) 91 08/02/20 02:00 24 Mechanical Ventilator 100 08/02/20 02:00 126 24 93/58 (70) 91 08/02/20 01:30 129 25 94/61 (72) 90 08/02/20 01:00 134 25 102/52 (69) 90 08/02/20 01:00 25 Mechanical Ventilator 100 08/02/20 00:40 26 Mechanical Ventilator 100 08/02/20 00:36 26 Mechanical Ventilator 100 08/02/20 00:30 137 27 98/57 (71) 90 08/02/20 00:00 100 08/02/20 00:00 Mechanical Ventilator 08/02/20 00:00 138 08/02/20 00:00 99.0 137 28 99/73 (82) 89 08/01/20 23:40 28 Mechanical Ventilator 100 08/01/20 23:30 138 30 109/52 (71) 90 08/01/20 23:25 28 Mechanical Ventilator 100 08/01/20 23:12 137 28 100 08/01/20 23:10 29 Mechanical Ventilator 100 08/01/20 23:00 135 29 101/63 (76) 90 08/01/20 22:55 30 Mechanical Ventilator 100 08/01/20 22:30 127 31 93/52 (66) 73 Intake and Output 08/01/20 08/02/20 19:00 07:00 Intake Total 315 ml 1076.4 ml Output Total 500 ml 210 ml Balance -185 ml 866.4 ml Intake Oral 240 ml IV Total 75 ml 1076.4 ml Output Urine Total 500 ml 210 ml Laboratory Tests Test 08/02/20 05:10 08/02/20 09:45 08/02/20 10:48 08/02/20 17:04 White Blood Count 22.7 K/UL (4.8-10.8) *H Red Blood Count 4.45 M/UL (4.70-6.10) L Hemoglobin 14.7 G/DL (14.2-18.0) Hematocrit 43.5 % (42.0-52.0) Mean Corpuscular Volume 98 FL (80-99) Mean Corpuscular Hemoglobin 33.1 PG (27.0-31.0) H Mean Corpuscular Hemoglobin Concent 33.9 G/DL (32.0-36.0) Red Cell Distribution Width 13.2 % (11.6-14.8) Platelet Count 87 K/UL (150-450) L Mean Platelet Volume 7.3 FL (6.5-10.1) Neutrophils (%) (Auto) % (45.0-75.0) Lymphocytes (%) (Auto) % (20.0-45.0) Monocytes (%) (Auto) % (1.0-10.0) Eosinophils (%) (Auto) % (0.0-3.0) Basophils (%) (Auto) % (0.0-2.0) Differential Total Cells Counted 100 Neutrophils % (Manual) 95 % (45-75) H Lymphocytes % (Manual) 1 % (20-45) L Monocytes % (Manual) 3 % (1-10) Eosinophils % (Manual) 0 % (0-3) Basophils % (Manual) 0 % (0-2) Band Neutrophils 1 % (0-8) Platelet Estimate Decreased L Platelet Morphology Normal Red Blood Cell Morphology Normal Anisocytosis Sodium Level 143 MMOL/L (136-145) Potassium Level 6.5 MMOL/L (3.5-5.1) *H Chloride Level 110 MMOL/L (98-107) H Carbon Dioxide Level 24 MMOL/L (21-32) Anion Gap 8 mmol/L (5-15) Blood Urea Nitrogen 51 mg/dL (7-18) H Creatinine 2.7 MG/DL (0.55-1.30) #H Estimat Glomerular Filtration Rate 23.8 mL/min (>60) Glucose Level 77 MG/DL (74-106) Lactic Acid Level 2.90 mmol/L (0.4-2.0) H 2.40 mmol/L (0.66-2.22) H Calcium Level 7.3 MG/DL (8.5-10.1) L Phosphorus Level 8.0 MG/DL (2.5-4.9) H Magnesium Level 2.9 MG/DL (1.8-2.4) H Total Bilirubin 0.5 MG/DL (0.2-1.0) Direct Bilirubin 0.2 MG/DL (0.0-0.3) Aspartate Amino Transf (AST/SGOT) 1152 U/L (15-37) H Alanine Aminotransferase (ALT/SGPT) 1105 U/L (12-78) H Alkaline Phosphatase 216 U/L (46-116) H Total Protein 6.0 G/DL (6.4-8.2) L Albumin 2.1 G/DL (3.4-5.0) L Globulin 3.9 g/dL Albumin/Globulin Ratio 0.5 (1.0-2.7) L Arterial Blood pH 7.257 (7.350-7.450) 7.168 (7.350-7.450) Arterial Blood Partial Pressure CO2 48.5 mmHg (35.0-45.0) H 64.6 mmHg (35.0-45.0) *H Arterial Blood Partial Pressure O2 55.1 mmHg (75.0-100.0) L 101.8 mmHg (75.0-100.0) H Arterial Blood HCO3 21.1 mmol/L (22.0-26.0) L 22.9 mmol/L (22.0-26.0) Arterial Blood Oxygen Saturation 86.4 % (95-100) *L 96.2 % (95-100) Arterial Blood Base Excess -6.1 (-2-2) L -6.7 (-2-2) L Mehdi Test Positive Positive Test 08/02/20 17:30 Lactic Acid Level 2.20 mmol/L (0.4-2.0) H Objective HEAD AND NECK: Showed no JVD. LUNGS: Clear. CARDIOVASCULAR: Shows regular S1 and S2 with no gallop. ABDOMEN: Soft. EXTREMITIES: No pitting edema. Navjot Bains MD Aug 02, 2020 22:06
[2020-08-03] VITALS (43 sets, daily range): BP systolic 111–147; BP diastolic 60–76
--- NOTE | 2020-08-03 | NUR ---
NURSE NOTES: Pt is sedated on the bed. checked BT: 99.2F. Keep cooling measure. SaO2 97% with Vent. Given suction and oral care. Turn and reposition. on wind operations manager with ST. On running with Versed gtt @ 10mg/hr and D51/2NS @ 150cc/hr. Will continue to monitor any change of condition.
--- NOTE | 2020-08-03 02:00 | NUR ---
NURSE NOTES: Pt is sedated on the bed and RASS score -2. On running with Versed drip @ 10mg/hr as titrate. SaO2 97% with current Vent setting. On behavioral health worker with ST. Placed fall precaution. Will continue to monitor any change of condition.
--- NOTE | 2020-08-03 04:00 | NUR ---
NURSE NOTES: Morning care was done. Cleaned Pt and applied lotion and cream. SaO2 98% with current Vent setting. Turn and reposition. On NPO. Noted good urine output via Vernon cath. Will continue to monitor any change of condition.
[2020-08-03] MEDS: Acetaminophen 650mg/20.3ml NG PRN (04:26)
[2020-08-03] MEDS: D5 1/2NS 1,000 ML IV SCH ×3 (04:46→17:01)
--- NOTE | 2020-08-03 06:00 | NUR ---
NURSE NOTES: Suction and oral care was done. Turn and reposition. keep cooling measure. Will continue to monitor.
[2020-08-03] MEDS: Midazolam HCl 50mg/10ml vial 100 MG in NS 180 ML IV PRN ×2 (06:31→17:45)
[2020-08-03 06:49] LABS: HEMATOCRIT 39.8 % (42.0-52.0); HEMOGLOBIN 13.2 G/DL (14.2-18.0); MEAN CORPUSCULAR VOLUME 100 FL (80-99); PLATELET COUNT 74 K/UL (150-450); RED BLOOD COUNT 3.98 M/UL (4.70-6.10); RED CELL DISTRIBUTION WIDTH 13.4 % (11.6-14.8); WHITE BLOOD COUNT 17.7 K/UL (4.8-10.8)
[2020-08-03 07:14] LABS: ALBUMIN 2.3 G/DL (3.4-5.0); ALBUMIN/GLOBULIN RATIO 0.7 (1.0-2.7); BILIRUBIN,DIRECT 0.2 MG/DL (0.0-0.3); BILIRUBIN,TOTAL 0.5 MG/DL (0.2-1.0); CALCIUM 7.6 MG/DL (8.5-10.1); CREATININE 3.2 MG/DL (0.55-1.30); POTASSIUM 5.3 MMOL/L (3.5-5.1)
--- NOTE | 2020-08-03 07:19 | Pulmonology Progress Note ---
Subjective ROS Limited/Unobtainable: Yes Interval Events: Intubated 08/01/20 Constitutional: Reports: no symptoms, other - Oo=[id number] HEENT: Repors: no symptoms Respiratory: Reports: no symptoms Cardiovascular: Reports: no symptoms Gastrointestinal/Abdominal: Reports: no symptoms; Denies: nausea, vomiting, diarrhea Musculoskeletal: Denies: pain Allergies: Coded Allergies: No Known Allergies (Unverified , 07/29/20) All Systems: reviewed and negative except above Objective Last 24 Hour Vital Signs Date Time Temp Pulse Resp B/P (MAP) Pulse Ox O2 Delivery O2 Flow Rate FiO2 08/03/20 07:00 17 Mechanical Ventilator 100 08/03/20 07:00 102 17 124/63 (83) 98 08/03/20 06:45 18 Mechanical Ventilator 100 08/03/20 06:31 16 Mechanical Ventilator 100 08/03/20 06:30 101 18 115/61 (79) 98 08/03/20 06:00 101 18 115/62 (79) 98 08/03/20 06:00 18 Mechanical Ventilator 100 08/03/20 05:30 103 18 123/60 (81) 98 08/03/20 05:00 105 18 124/66 (85) 98 08/03/20 05:00 18 Mechanical Ventilator 100 08/03/20 04:56 100.5 08/03/20 04:30 104 20 125/65 (85) 98 08/03/20 04:00 101.0 101 20 128/66 (86) 98 08/03/20 04:00 20 Mechanical Ventilator 100 08/03/20 04:00 Mechanical Ventilator 08/03/20 04:00 100 08/03/20 04:00 108 08/03/20 03:30 107 22 146/74 (98) 97 08/03/20 03:05 107 21 100 08/03/20 03:00 22 Mechanical Ventilator 100 08/03/20 03:00 107 22 136/73 (94) 97 08/03/20 02:30 107 21 147/72 (97) 97 08/03/20 02:00 108 23 144/74 (97) 97 08/03/20 02:00 23 Mechanical Ventilator 100 08/03/20 01:30 104 20 140/74 (96) 97 08/03/20 01:00 21 Mechanical Ventilator 100 08/03/20 01:00 106 21 139/74 (95) 97 08/03/20 00:30 104 20 142/76 (98) 97 08/03/20 00:00 103 08/03/20 00:00 20 Mechanical Ventilator 100 08/03/20 00:00 100 08/03/20 00:00 Mechanical Ventilator 08/03/20 00:00 99.2 104 20 139/73 (95) 97 08/02/20 23:30 102 21 141/72 (95) 97 08/02/20 23:00 21 Mechanical Ventilator 100 08/02/20 23:00 101 21 139/71 (93) 97 08/02/20 22:52 102 21 100 08/02/20 22:30 103 21 133/74 (93) 97 08/02/20 22:00 104 25 140/71 (94) 97 08/02/20 22:00 25 Mechanical Ventilator 100 08/02/20 21:30 101 20 167/74 (105) 97 08/02/20 21:00 20 Mechanical Ventilator 100 08/02/20 21:00 100 20 167/72 (103) 97 08/02/20 20:30 99 21 162/72 (102) 97 08/02/20 20:29 21 Mechanical Ventilator 100 08/02/20 20:00 99.2 97 21 159/71 (100) 98 08/02/20 20:00 100 08/02/20 20:00 96 08/02/20 20:00 Mechanical Ventilator 08/02/20 19:15 94 21 152/72 (98) 98 08/02/20 19:00 21 Endotracheal Tube 100 08/02/20 19:00 92 22 152/69 (96) 97 08/02/20 18:50 95 22 100 08/02/20 18:00 95 20 151/70 (97) 96 08/02/20 18:00 27 Endotracheal Tube 100 08/02/20 17:00 94 22 156/71 (99) 95 08/02/20 17:00 27 Endotracheal Tube 100 08/02/20 16:00 Mechanical Ventilator 08/02/20 16:00 94 20 141/69 (93) 95 08/02/20 16:00 94 08/02/20 16:00 28 Endotracheal Tube 100 08/02/20 16:00 100 08/02/20 16:00 98.3 08/02/20 15:05 95 23 100 1/9/21 15:00 28 Endotracheal Tube 100 08/02/20 15:00 97 24 145/68 (93) 94 08/02/20 14:00 101 25 140/70 (93) 94 08/02/20 14:00 25 Endotracheal Tube 100 08/02/20 13:00 28 Endotracheal Tube 100 08/02/20 13:00 100 29 152/72 (98) 96 08/02/20 12:20 105 27 100 08/02/20 12:00 100 08/02/20 12:00 Mechanical Ventilator 08/02/20 12:00 28 Endotracheal Tube 100 08/02/20 12:00 99.9 104 28 142/68 (92) 91 08/02/20 11:27 105 08/02/20 11:00 28 Endotracheal Tube 100 08/02/20 11:00 99.9 08/02/20 11:00 106 28 136/68 (90) 88 08/02/20 10:00 28 Endotracheal Tube 100 08/02/20 10:00 111 29 130/68 (88) 87 08/02/20 09:46 32 Endotracheal Tube 100 08/02/20 09:00 30 Endotracheal Tube 100 08/02/20 09:00 114 30 128/64 (85) 89 08/02/20 08:11 114 08/02/20 08:00 100 08/02/20 08:00 Mechanical Ventilator 08/02/20 08:00 101.9 113 29 136/66 (89) 88 08/02/20 08:00 30 Endotracheal Tube 100 Intake and Output 08/02/20 08/03/20 19:00 07:00 Intake Total 2055 ml 1756.5 ml Output Total 810 ml 1170 ml Balance 1245 ml 586.5 ml IV Total 2055 ml 1756.5 ml Output Urine Total 810 ml 1170 ml General Appearance: no acute distress HEENT: normocephalic, atraumatic Respiratory: lungs clear Cardiovascular: normal rate, regular rhythm Abdomen: soft, non tender Laboratory Tests 08/02/20 09:45: Lactic Acid Level 2.40H 08/02/20 10:48: Arterial Blood pH 7.257L, Arterial Blood Partial Pressure CO2 48.5H, Arterial Blood Partial Pressure O2 55.1L, Arterial Blood HCO3 21.1L, Arterial Blood Oxygen Saturation 86.4*L, Arterial Blood Base Excess -6.1L, Mehdi Test Positive 08/02/20 17:04: Arterial Blood pH 7.168*L, Arterial Blood Partial Pressure CO2 64.6*H, Arterial Blood Partial Pressure O2 101.8H, Arterial Blood HCO3 22.9, Arterial Blood Oxygen Saturation 96.2, Arterial Blood Base Excess -6.7L, Mehdi Test Positive 08/02/20 17:30: Lactic Acid Level 2.20H 08/03/20 05:10: White Blood Count 17.7H, Red Blood Count 3.98L, Hemoglobin 13.2L, Hematocrit 39.8L, Mean Corpuscular Volume 100H, Mean Corpuscular Hemoglobin 33.2H, Mean Corpuscular Hemoglobin Concent 33.2, Red Cell Distribution Width 13.4, Platelet Count 74L, Mean Platelet Volume 7.3, Neutrophils (%) (Auto) , Lymphocytes (%) (Auto) , Monocytes (%) (Auto) , Eosinophils (%) (Auto) , Basophils (%) (Auto) , Neutrophils % (Manual) [Pending], Lymphocytes % (Manual) [Pending], Platelet Estimate [Pending], Platelet Morphology [Pending], Sodium Level 145, Potassium Level 5.3H, Chloride Level 112H, Carbon Dioxide Level 28, Anion Gap 5, Blood Urea Nitrogen 73H, Creatinine 3.2H, Estimat Glomerular Filtration Rate 19.6, Glucose Level 144H, Lactic Acid Level 2.60H, Uric Acid [Pending], Calcium Level 7.6L, Phosphorus Level [Pending], Magnesium Level [Pending], Total Bilirubin 0.5, Direct Bilirubin 0.2, Gamma Glutamyl Transpeptidase [Pending], Aspartate Amino Transf (AST/SGOT) 843H, Alanine Aminotransferase (ALT/SGPT) 1230H, Alkaline Phosphatase 166H, Ammonia 67H, Troponin I 0.902H, C-Reactive Protein, Quantitative [Pending], Pro-B-Type Natriuretic Peptide [Pending], Total Protein 5.8L, Albumin 2.3L, Globulin 3.5, Albumin/Globulin Ratio 0.7L Current Medications Medications (Trade) Dose Ordered Sig/Fabiano Route PRN Reason Start Time Stop Time Status Last Admin Dose Admin Acetaminophen (Tylenol) 650 mg Q4H PRN NG Temp >100.5 08/03/20 04:15 2/9/21 04:14 08/03/20 04:26 Acetaminophen (Tylenol) 650 mg Q4H PRN RECTAL Temp >100.5 08/01/20 20:30 08/31/20 20:29 08/02/20 10:28 Albuterol Sulfate (Proventil MDI) 2 puff Q4H PRN INH Shortness of Breath 07/29/20 22:45 10/27/20 22:44 Cetylpyridinium Chloride (Cepacol) 1 lozg Q2H PRN [place] For Cough 07/30/20 21:00 10/28/20 20:59 08/01/20 08:47 Dexamethasone Sodium Phosphate (Decadron 10mg/ ml Inj) 6 mg DAILY IV 07/30/20 15:00 08/07/20 09:01 08/02/20 08:29 Dextrose/Sodium Chloride 1,000 ml @ 150 mls/hr Q6H40M IV 08/02/20 08:30 09/01/20 08:29 08/03/20 04:46 Enoxaparin Sodium (Lovenox) 30 mg DAILY SUBQ 08/02/20 10:00 10/31/20 09:59 Guaifenesin/ Dextromethorphan (Robitussin DM Syrup) 15 ml Q6H PRN ORAL For Cough 07/31/20 08:30 10/29/20 08:29 08/01/20 08:47 Midazolam HCl 100 mg/Sodium Chloride 200 ml @ 0 mls/hr Q24H PRN IV Agitation 08/02/20 00:00 08/04/20 00:00 08/03/20 06:31 Morphine Sulfate (Morphine Sulfate) 4 mg Q4H PRN IVP Severe Pain (Pain Scale 7-10) 07/30/20 04:45 08/06/20 04:44 08/01/20 18:16 Pantoprazole (Protonix) 40 mg EVERY 12 HOURS IVP 08/02/20 21:00 09/01/20 20:59 08/02/20 20:19 Assessment/Plan Assessment/Plan 1. Respiratory Failure - intubated 08/01/20 - remains hypoxic - Continue PEEP 12 - continue 100% Fio2 2. Hyponatremia - per primary MD 3. Hyperglycemia - BG control 5. Pneumonia - abx per ID - on dexamethasone (1/6-) - now on remdesivir per ID (08/01-) 6. COVID-19 rapid negative - COVID-19 PCR positive 7. Elevated inflammatory markers; ferritin, D-Dimer - likely secondary to #5 - On Lovenox Milton Antonio MD Aug 03, 2020 07:19
--- NOTE | 2020-08-03 07:21 | NUR ---
NURSE HAND-OFF REPORT: Latest Vital Signs: Temperature 100.5 , Pulse 102 , B/P 124 /63 , Respiratory Rate 17 , O2 SAT 98 , Mechanical Ventilator, O2 Flow Rate . Vital Sign Comment: EKG Rhythm: Sinus Tachycardia Rhythm change?: N Notified?: Moi Guzman MD Response: Latest Orozco Fall Score: 50 Fall Risk: High Risk Safety Measures: Call light Within Reach, Bed Alarm Zone 1, Side Rails Side Rails x2, Bed position Low and Locked. Fall Precautions: Yellow Socks Yellow Gown Door Sign Patient Fall Education Report given to CARLOS Alexis. Pt is sedated on the bed and RASS score -2. On running with Versed @ 9mg/hr.
--- NOTE | 2020-08-03 07:30 | NUR ---
NURSE NOTES: Received report from CARLOS Solis. Pt is sedated, RASS -2. Pt is orally intubated, ETT 7.5, 24cm @ the lip line. 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 PIV Lt AC #20g and Lt FA #20g intact and patent, running Versed @ 10mg/hr and D5 1/2 NS @150mL/hr. NSR on school bus monitor. Vernon catheter noted and patent, draining urine with gravity to urometer. Pt has an OGT; remains NPO at this time. Pt received and maintained on bilateral soft wrist restraints for safety. Isolation precautions for COVID-19 observed. Bed locked and in lowest position, with call light within reach. Will continue to care plan.
[2020-08-03] MEDS: Pantoprazole Inj IVP SCH ×2 (08:33→20:30)
[2020-08-03] MEDS: Enoxaparin 30mg Inj SUBQ SCH (08:33)
[2020-08-03] MEDS: dexAMETHasone 10mg/ml Inj IV SCH (08:33)
--- NOTE | 2020-08-03 09:00 | NUR ---
NURSE NOTES: Pt turned and repositioned for comfort. Oral care done. AM medication administered as ordered, with the exception of Lovenox, which was held d/t low plt.
--- NOTE | 2020-08-03 09:30 | NUR ---
RD ASSESSMENT & RECOMMENDATIONS SEE CARE ACTIVITY FOR COMPLETE ASSESSMENT DAILY ESTIMATED NEEDS: Needs based on [facility] care 64.5kg abw 22-28 kcals/kg 5448-5900 total kcals 1.2-2 g protein/kg 77-129 g total protein 25-30 mL/kg 5393-1384 total fluid mLs NUTRITION DIAGNOSIS: Altered nutrition related lab values related to clinical status as evidenced by elev LD(665), elev WBC(trending down 17.7), elev BG(132-176), elevated lytes(K, phos, mg), elev renal labs (BUN73, creat 3.2), elev LFT's ENTERAL NUTRITION RECOMMENDATIONS: As medically able, rec non oral feeds: NEPRO @35ml/hr x24 hrs to provide 840ml, 1512 kcal, 68g pro, 611ml free H2O - With hemodynamic stability, rec OGt feeds to meet est needs. - Start Nepro @15ml/hr for 6 hrs, advance as tolerated 10ml/hr q4-6 hrs to goal - Flush per MD. HOB over 30 degrees - When tolerating TF at goal, add Prosource 1 pack daily to better meet est pro needs. ADDITIONAL RECOMMENDATIONS: 1) recalibrate bed scale wt for accurate CBW 2) Monitor BG, need for NISS 3) TF recs as above when stable for feeds .
--- NOTE | 2020-08-03 10:15 | NUR ---
NURSE NOTES: Dr Antonio at bedside assessing pt. Updated him on pt's current condition. Informed him of this morning's ABG. PEEP to be lowered to 5. RT made aware.
--- NOTE | 2020-08-03 12:00 | NUR ---
NURSE NOTES: Spoke to pt's son. Updated him on pt's current condition and answered all of his questions.
--- NOTE | 2020-08-03 12:15 | NUR ---
NURSE NOTES: Pt turned and repositioned. Oral care done. Pt remains sedated RASS -2, on Versed @ 9mg/hr. Pt is afebrile at this time. Tolerating the ventilator settings; O2sat reading 96%. No distress noted.
--- NOTE | 2020-08-03 13:45 | NUR ---
NURSE NOTES: Pt turned and repositioned for comfort. Pt tolerating FiO2 50%. O2sat reads 100% on night monitor. No distress noted. Addendum: 08/03/20 at 1549 by Vanesa Albarado RN WRONG PATIENT
--- NOTE | 2020-08-03 13:45 | NUR ---
NURSE NOTES: FiO2 increased to 90% from 80% d/t O2sat reading 87% on radiation monitor.
--- NOTE | 2020-08-03 14:10 | Surgery Progress Note ---
Surgery Progress Note Subjective Additional Comments leukocytosis lactic acidosis plt low ill appearing on support worse Objective Last 24 Hour Vital Signs Date Time Temp Pulse Resp B/P (MAP) Pulse Ox O2 Delivery O2 Flow Rate FiO2 08/03/20 13:00 85 17 120/62 (81) 96 08/03/20 13:00 18 Mechanical Ventilator 80 08/03/20 12:30 83 20 111/63 (79) 97 08/03/20 12:00 86 08/03/20 12:00 80 08/03/20 12:00 18 Mechanical Ventilator 80 08/03/20 12:00 Mechanical Ventilator 08/03/20 12:00 98.2 85 20 112/65 (81) 97 08/03/20 11:30 88 23 122/65 (84) 95 08/03/20 11:00 18 Mechanical Ventilator 80 08/03/20 11:00 86 19 117/63 (81) 92 08/03/20 10:30 92 18 119/65 (83) 93 08/03/20 10:22 92 19 100 08/03/20 10:00 93 16 116/62 (80) 97 08/03/20 10:00 18 Mechanical Ventilator 80 08/03/20 09:30 96 18 115/65 (82) 96 08/03/20 09:00 101 23 124/63 (83) 97 08/03/20 09:00 18 Mechanical Ventilator 80 08/03/20 08:30 97 17 123/64 (83) 98 08/03/20 08:00 98.3 96 18 116/60 (78) 98 08/03/20 08:00 100 08/03/20 08:00 96 08/03/20 08:00 18 Mechanical Ventilator 100 08/03/20 08:00 Mechanical Ventilator 08/03/20 07:30 97 29 120/62 (81) 98 08/03/20 07:20 96 18 100 08/03/20 07:00 17 Mechanical Ventilator 100 08/03/20 07:00 102 17 124/63 (83) 98 08/03/20 06:45 18 Mechanical Ventilator 100 08/03/20 06:31 16 Mechanical Ventilator 100 08/03/20 06:30 101 18 115/61 (79) 98 08/03/20 06:00 101 18 115/62 (79) 98 08/03/20 06:00 18 Mechanical Ventilator 100 08/03/20 05:30 103 18 123/60 (81) 98 08/03/20 05:00 105 18 124/66 (85) 98 08/03/20 05:00 18 Mechanical Ventilator 100 08/03/20 04:56 100.5 08/03/20 04:30 104 20 125/65 (85) 98 08/03/20 04:00 101.0 101 20 128/66 (86) 98 08/03/20 04:00 20 Mechanical Ventilator 100 08/03/20 04:00 Mechanical Ventilator 08/03/20 04:00 100 08/03/20 04:00 108 08/03/20 03:30 107 22 146/74 (98) 97 08/03/20 03:05 107 21 100 08/03/20 03:00 22 Mechanical Ventilator 100 08/03/20 03:00 107 22 136/73 (94) 97 08/03/20 02:30 107 21 147/72 (97) 97 08/03/20 02:00 108 23 144/74 (97) 97 08/03/20 02:00 23 Mechanical Ventilator 100 08/03/20 01:30 104 20 140/74 (96) 97 08/03/20 01:00 21 Mechanical Ventilator 100 08/03/20 01:00 106 21 139/74 (95) 97 08/03/20 00:30 104 20 142/76 (98) 97 08/03/20 00:00 103 08/03/20 00:00 20 Mechanical Ventilator 100 08/03/20 00:00 100 08/03/20 00:00 Mechanical Ventilator 08/03/20 00:00 99.2 104 20 139/73 (95) 97 08/02/20 23:30 102 21 141/72 (95) 97 08/02/20 23:00 21 Mechanical Ventilator 100 08/02/20 23:00 101 21 139/71 (93) 97 08/02/20 22:52 102 21 100 08/02/20 22:30 103 21 133/74 (93) 97 08/02/20 22:00 104 25 140/71 (94) 97 08/02/20 22:00 25 Mechanical Ventilator 100 08/02/20 21:30 101 20 167/74 (105) 97 08/02/20 21:00 20 Mechanical Ventilator 100 08/02/20 21:00 100 20 167/72 (103) 97 08/02/20 20:30 99 21 162/72 (102) 97 08/02/20 20:29 21 Mechanical Ventilator 100 08/02/20 20:00 99.2 97 21 159/71 (100) 98 08/02/20 20:00 100 08/02/20 20:00 96 08/02/20 20:00 Mechanical Ventilator 08/02/20 19:15 94 21 152/72 (98) 98 08/02/20 19:00 21 Endotracheal Tube 100 08/02/20 19:00 92 22 152/69 (96) 97 08/02/20 18:50 95 22 100 08/02/20 18:00 95 20 151/70 (97) 96 08/02/20 18:00 27 Endotracheal Tube 100 08/02/20 17:00 94 22 156/71 (99) 95 08/02/20 17:00 27 Endotracheal Tube 100 08/02/20 16:00 Mechanical Ventilator 08/02/20 16:00 94 20 141/69 (93) 95 08/02/20 16:00 94 08/02/20 16:00 28 Endotracheal Tube 100 08/02/20 16:00 100 08/02/20 16:00 98.3 08/02/20 15:05 95 23 100 08/02/20 15:00 28 Endotracheal Tube 100 08/02/20 15:00 97 24 145/68 (93) 94 I&O Intake and Output 08/02/20 08/03/20 19:00 07:00 Intake Total 2055 ml 1756.5 ml Output Total 810 ml 1170 ml Balance 1245 ml 586.5 ml IV Total 2055 ml 1756.5 ml Output Urine Total 810 ml 1170 ml Dressing: saturated Cardiovascular: RSR Respiratory: decreased breath sounds Abdomen: soft, non-tender, present bowel sounds Extremities: no edema, no tenderness, no cyanosis Laboratory Tests Test 08/02/20 17:04 08/02/20 17:30 08/03/20 05:10 08/03/20 07:42 Arterial Blood pH 7.168 (7.350-7.450) 7.138 (7.350-7.450) Arterial Blood Partial Pressure CO2 64.6 mmHg (35.0-45.0) *H 76.9 mmHg (35.0-45.0) *H Arterial Blood Partial Pressure O2 101.8 mmHg (75.0-100.0) H 207.5 mmHg (75.0-100.0) H Arterial Blood HCO3 22.9 mmol/L (22.0-26.0) 25.5 mmol/L (22.0-26.0) Arterial Blood Oxygen Saturation 96.2 % (95-100) 98.9 % (95-100) Arterial Blood Base Excess -6.7 (-2-2) L -5.2 (-2-2) L Mehdi Test Positive Positive Lactic Acid Level 2.20 mmol/L (0.4-2.0) H 2.60 mmol/L (0.4-2.0) H White Blood Count 17.7 K/UL (4.8-10.8) H Red Blood Count 3.98 M/UL (4.70-6.10) L Hemoglobin 13.2 G/DL (14.2-18.0) L Hematocrit 39.8 % (42.0-52.0) L Mean Corpuscular Volume 100 FL (80-99) H Mean Corpuscular Hemoglobin 33.2 PG (27.0-31.0) H Mean Corpuscular Hemoglobin Concent 33.2 G/DL (32.0-36.0) Red Cell Distribution Width 13.4 % (11.6-14.8) Platelet Count 74 K/UL (150-450) L Mean Platelet Volume 7.3 FL (6.5-10.1) Neutrophils (%) (Auto) % (45.0-75.0) Lymphocytes (%) (Auto) % (20.0-45.0) Monocytes (%) (Auto) % (1.0-10.0) Eosinophils (%) (Auto) % (0.0-3.0) Basophils (%) (Auto) % (0.0-2.0) Differential Total Cells Counted 100 Neutrophils % (Manual) 91 % (45-75) H Lymphocytes % (Manual) 4 % (20-45) L Monocytes % (Manual) 5 % (1-10) Eosinophils % (Manual) 0 % (0-3) Basophils % (Manual) 0 % (0-2) Band Neutrophils 0 % (0-8) Platelet Estimate Decreased L Platelet Morphology Normal Red Blood Cell Morphology Normal Sodium Level 145 MMOL/L (136-145) Potassium Level 5.3 MMOL/L (3.5-5.1) H Chloride Level 112 MMOL/L (98-107) H Carbon Dioxide Level 28 MMOL/L (21-32) Anion Gap 5 mmol/L (5-15) Blood Urea Nitrogen 73 mg/dL (7-18) H Creatinine 3.2 MG/DL (0.55-1.30) H Estimat Glomerular Filtration Rate 19.6 mL/min (>60) Glucose Level 144 MG/DL (74-106) H Uric Acid 7.6 MG/DL (2.6-7.2) H Calcium Level 7.6 MG/DL (8.5-10.1) L Phosphorus Level 7.0 MG/DL (2.5-4.9) H Magnesium Level 3.2 MG/DL (1.8-2.4) H Total Bilirubin 0.5 MG/DL (0.2-1.0) Direct Bilirubin 0.2 MG/DL (0.0-0.3) Gamma Glutamyl Transpeptidase 94 U/L (5-85) H Aspartate Amino Transf (AST/SGOT) 843 U/L (15-37) H Alanine Aminotransferase (ALT/SGPT) 1230 U/L (12-78) H Alkaline Phosphatase 166 U/L (46-116) H Ammonia 67 umol/L (11-32) H Troponin I 0.902 ng/mL (0.000-0.056) C-Reactive Protein, Quantitative Pending Pro-B-Type Natriuretic Peptide 61917 pg/mL (0-125) H Total Protein 5.8 G/DL (6.4-8.2) L Albumin 2.3 G/DL (3.4-5.0) L Globulin 3.5 g/dL Albumin/Globulin Ratio 0.7 (1.0-2.7) L Test 08/03/20 11:30 08/03/20 12:45 Lactic Acid Level 2.90 mmol/L (0.4-2.0) H 3.00 mmol/L (0.66-2.22) H Plan Problems: (1) Hypoxia (2) Bilateral pneumonia (3) Acute respiratory failure with hypoxia Assessment & Plan: ards covid negative as per pulm id input appreciated abd pain likely cramping indigestion from ill ness ppi ordered okay for diet monitor intake am labs will follow with exam and recs acute decline intubated in ICU on vent liver insufficiency acute hepatic in sufficiency renal insufficiency no acute surgical intervention needs resuscitation meds reviewed (4) Bradycardia (5) Malnutrition Assessment & Plan: DAILY ESTIMATED NEEDS: Needs based on [facility] care 64.5kg abw 22-28 kcals/kg 7508-2832 total kcals 1.2-2 g protein/kg 77-129 g total protein 25-30 mL/kg 1469-3908 total fluid mLs NUTRITION DIAGNOSIS: Altered nutrition related lab values related to clinical status as evidenced by elev LD(665), elev WBC(trending down 17.7), elev BG(132-176), elevated lytes(K, phos, mg), elev renal labs (BUN73, creat 3.2), elev LFT's ENTERAL NUTRITION RECOMMENDATIONS: As medically able, rec non oral feeds: NEPRO @35ml/hr x24 hrs to provide 840ml, 1512 kcal, 68g pro, 611ml free H2O - With hemodynamic stability, rec OGt feeds to meet est needs. - Start Nepro @15ml/hr for 6 hrs, advance as tolerated 10ml/hr q4-6 hrs to goal - Flush per MD. HOB over 30 degrees - When tolerating TF at goal, add Prosource 1 pack daily to better meet est pro needs. ADDITIONAL RECOMMENDATIONS: 1) recalibrate bed scale wt for accurate CBW 2) Monitor BG, need for NISS 3) TF recs as above when stable for feeds . Vern Quevedo Aug 03, 2020 14:10
--- NOTE | 2020-08-03 15:05 | NUR ---
NURSE NOTES: Dr Everett at bedside assessing pt. Updated him on pt's current condition. Made aware of Plt 74 and Potassium 5.3
--- NOTE | 2020-08-03 16:30 | NUR ---
NURSE NOTES: Spoke to pt's son and gave him an update and answered all of his questions.
--- NOTE | 2020-08-03 16:36 | Nephrology Progress Note ---
Assessment/Plan Problem List: (1) ERIKA (acute kidney injury) (2) Shock liver (3) Acute respiratory failure with hypoxia (4) Bilateral pneumonia Assessment Acute renal failure. Most likely due to hypotensive and shock from 8 PM last night to 5 AM this morning. Hyperkalemia. Acute hypoxic respiratory failure. Pneumonia with COVID-19. Elevated transaminase, most likely shock liver. Plan August 03: Patient intubated on ventilator. Renal parameters worsening. LFTs elevated. Patient is deteriorating. Will consider dialysis treatment if no reversal of kidney failure. Discussed with CARLOS Alexis. Previously: Albumin bolus Increase IV fluid Kayexalate for high potassium Monitor renal parameters Objective Objective Last 24 Hour Vital Signs Date Time Temp Pulse Resp B/P (MAP) Pulse Ox O2 Delivery O2 Flow Rate FiO2 08/03/20 16:00 90 08/03/20 16:00 Mechanical Ventilator 08/03/20 15:23 72 26 90 08/03/20 15:00 18 Mechanical Ventilator 80 08/03/20 15:00 78 17 118/63 (81) 96 08/03/20 14:30 88 20 124/62 (82) 95 08/03/20 14:00 83 18 116/64 (81) 89 08/03/20 14:00 18 Mechanical Ventilator 80 08/03/20 13:00 85 17 120/62 (81) 96 08/03/20 13:00 18 Mechanical Ventilator 80 08/03/20 12:30 83 20 111/63 (79) 97 08/03/20 12:00 86 08/03/20 12:00 80 08/03/20 12:00 18 Mechanical Ventilator 80 08/03/20 12:00 Mechanical Ventilator 08/03/20 12:00 98.2 85 20 112/65 (81) 97 08/03/20 11:30 88 23 122/65 (84) 95 08/03/20 11:00 18 Mechanical Ventilator 80 08/03/20 11:00 86 19 117/63 (81) 92 08/03/20 10:30 92 18 119/65 (83) 93 08/03/20 10:22 92 19 100 08/03/20 10:00 93 16 116/62 (80) 97 08/03/20 10:00 18 Mechanical Ventilator 80 08/03/20 09:30 96 18 115/65 (82) 96 08/03/20 09:00 101 23 124/63 (83) 97 08/03/20 09:00 18 Mechanical Ventilator 80 08/03/20 08:30 97 17 123/64 (83) 98 08/03/20 08:00 98.3 96 18 116/60 (78) 98 08/03/20 08:00 100 08/03/20 08:00 96 08/03/20 08:00 18 Mechanical Ventilator 100 08/03/20 08:00 Mechanical Ventilator 08/03/20 07:30 97 29 120/62 (81) 98 08/03/20 07:20 96 18 100 08/03/20 07:00 17 Mechanical Ventilator 100 08/03/20 07:00 102 17 124/63 (83) 98 08/03/20 06:45 18 Mechanical Ventilator 100 08/03/20 06:31 16 Mechanical Ventilator 100 08/03/20 06:30 101 18 115/61 (79) 98 08/03/20 06:00 101 18 115/62 (79) 98 08/03/20 06:00 18 Mechanical Ventilator 100 08/03/20 05:30 103 18 123/60 (81) 98 08/03/20 05:00 105 18 124/66 (85) 98 08/03/20 05:00 18 Mechanical Ventilator 100 08/03/20 04:56 100.5 08/03/20 04:30 104 20 125/65 (85) 98 08/03/20 04:00 101.0 101 20 128/66 (86) 98 08/03/20 04:00 20 Mechanical Ventilator 100 08/03/20 04:00 Mechanical Ventilator 08/03/20 04:00 100 08/03/20 04:00 108 08/03/20 03:30 107 22 146/74 (98) 97 08/03/20 03:05 107 21 100 08/03/20 03:00 22 Mechanical Ventilator 100 08/03/20 03:00 107 22 136/73 (94) 97 08/03/20 02:30 107 21 147/72 (97) 97 08/03/20 02:00 108 23 144/74 (97) 97 08/03/20 02:00 23 Mechanical Ventilator 100 08/03/20 01:30 104 20 140/74 (96) 97 08/03/20 01:00 21 Mechanical Ventilator 100 08/03/20 01:00 106 21 139/74 (95) 97 08/03/20 00:30 104 20 142/76 (98) 97 08/03/20 00:00 103 08/03/20 00:00 20 Mechanical Ventilator 100 08/03/20 00:00 100 08/03/20 00:00 Mechanical Ventilator 08/03/20 00:00 99.2 104 20 139/73 (95) 97 08/02/20 23:30 102 21 141/72 (95) 97 08/02/20 23:00 21 Mechanical Ventilator 100 08/02/20 23:00 101 21 139/71 (93) 97 08/02/20 22:52 102 21 100 08/02/20 22:30 103 21 133/74 (93) 97 08/02/20 22:00 104 25 140/71 (94) 97 08/02/20 22:00 25 Mechanical Ventilator 100 08/02/20 21:30 101 20 167/74 (105) 97 08/02/20 21:00 20 Mechanical Ventilator 100 08/02/20 21:00 100 20 167/72 (103) 97 08/02/20 20:30 99 21 162/72 (102) 97 08/02/20 20:29 21 Mechanical Ventilator 100 08/02/20 20:00 99.2 97 21 159/71 (100) 98 08/02/20 20:00 100 08/02/20 20:00 96 08/02/20 20:00 Mechanical Ventilator 08/02/20 19:15 94 21 152/72 (98) 98 08/02/20 19:00 21 Endotracheal Tube 100 08/02/20 19:00 92 22 152/69 (96) 97 08/02/20 18:50 95 22 100 08/02/20 18:00 95 20 151/70 (97) 96 08/02/20 18:00 27 Endotracheal Tube 100 08/02/20 17:00 94 22 156/71 (99) 95 08/02/20 17:00 27 Endotracheal Tube 100 Intake and Output 08/02/20 08/03/20 19:00 07:00 Intake Total 2055 ml 1756.5 ml Output Total 810 ml 1170 ml Balance 1245 ml 586.5 ml IV Total 2055 ml 1756.5 ml Output Urine Total 810 ml 1170 ml Laboratory Tests 08/02/20 17:04: Arterial Blood pH 7.168*L, Arterial Blood Partial Pressure CO2 64.6*H, Arterial Blood Partial Pressure O2 101.8H, Arterial Blood HCO3 22.9, Arterial Blood Oxygen Saturation 96.2, Arterial Blood Base Excess -6.7L, Mehdi Test Positive 08/02/20 17:30: Lactic Acid Level 2.20H 08/03/20 05:10: Lactic Acid Level 2.60H, White Blood Count 17.7H, Red Blood Count 3.98L, Hemoglobin 13.2L, Hematocrit 39.8L, Mean Corpuscular Volume 100H, Mean Corpuscular Hemoglobin 33.2H, Mean Corpuscular Hemoglobin Concent 33.2, Red Cell Distribution Width 13.4, Platelet Count 74L, Mean Platelet Volume 7.3, Neutrophils (%) (Auto) , Lymphocytes (%) (Auto) , Monocytes (%) (Auto) , Eosinophils (%) (Auto) , Basophils (%) (Auto) , Differential Total Cells Counted 100, Neutrophils % (Manual) 91H, Lymphocytes % (Manual) 4L, Monocytes % (Manual) 5, Eosinophils % (Manual) 0, Basophils % (Manual) 0, Band Neutrophils 0, Platelet Estimate DecreasedL, Platelet Morphology Normal, Red Blood Cell Morphol ogy Normal, Sodium Level 145, Potassium Level 5.3H, Chloride Level 112H, Carbon Dioxide Level 28, Anion Gap 5, Blood Urea Nitrogen 73H, Creatinine 3.2H, Estimat Glomerular Filtration Rate 19.6, Glucose Level 144H, Uric Acid 7.6H, Calcium Level 7.6L, Phosphorus Level 7.0H, Magnesium Level 3.2H, Total Bilirubin 0.5, Direct Bilirubin 0.2, Gamma Glutamyl Transpeptidase 94H, Aspartate Amino Transf (AST/SGOT) 843H, Alanine Aminotransferase (ALT/SGPT) 1230H, Alkaline Phosphatase 166H, Ammonia 67H, Troponin I 0.902H, C-Reactive Protein, Quantitative [Pending], Pro-B-Type Natriuretic Peptide 82326N, Total Protein 5.8L, Albumin 2.3L, Globulin 3.5, Albumin/Globulin Ratio 0.7L 08/03/20 07:42: Arterial Blood pH 7.138*L, Arterial Blood Partial Pressure CO2 76.9*H, Arterial Blood Partial Pressure O2 207.5H, Arterial Blood HCO3 25.5, Arterial Blood Oxygen Saturation 98.9, Arterial Blood Base Excess -5.2L, Mehdi Test Positive 08/03/20 11:30: Lactic Acid Level 2.90H 08/03/20 12:45: Lactic Acid Level 3.00H 08/03/20 16:00: Arterial Blood pH 7.253L, Arterial Blood Partial Pressure CO2 51.5H, Arterial Blood Partial Pressure O2 68.5L, Arterial Blood HCO3 22.2, Arterial Blood Oxygen Saturation 93.1L, Arterial Blood Base Excess -5.3L, Mehdi Test Positive Height (Feet): 5 Height (Inches): 5.00 Weight (Pounds): 160 Jared Everett MD Aug 03, 2020 16:36
--- NOTE | 2020-08-03 17:00 | NUR ---
NURSE NOTES: Pt fully cleaned and linens changed. No BM noted.
--- NOTE | 2020-08-03 18:28 | General Progress Note ---
Subjective Constitutional: Reports: weakness Allergies: Coded Allergies: No Known Allergies (Unverified , 07/29/20) All Systems: reviewed and negative except above Subjective intubated sedated in icu Objective Last 24 Hour Vital Signs Date Time Temp Pulse Resp B/P (MAP) Pulse Ox O2 Delivery O2 Flow Rate FiO2 08/03/20 17:45 18 Mechanical Ventilator 90 08/03/20 17:00 94 21 125/62 (83) 94 08/03/20 17:00 18 Mechanical Ventilator 90 08/03/20 16:30 90 23 124/62 (82) 94 08/03/20 16:00 98.3 73 18 114/62 (79) 94 08/03/20 16:00 90 08/03/20 16:00 18 Mechanical Ventilator 90 08/03/20 16:00 Mechanical Ventilator 08/03/20 15:30 73 17 111/63 (79) 95 08/03/20 15:23 72 26 90 08/03/20 15:00 18 Mechanical Ventilator 80 08/03/20 15:00 78 17 118/63 (81) 96 08/03/20 14:30 88 20 124/62 (82) 95 08/03/20 14:00 83 18 116/64 (81) 89 08/03/20 14:00 18 Mechanical Ventilator 80 08/03/20 13:00 85 17 120/62 (81) 96 08/03/20 13:00 18 Mechanical Ventilator 80 08/03/20 12:30 83 20 111/63 (79) 97 08/03/20 12:00 86 08/03/20 12:00 80 08/03/20 12:00 18 Mechanical Ventilator 80 08/03/20 12:00 Mechanical Ventilator 08/03/20 12:00 98.2 85 20 112/65 (81) 97 08/03/20 11:30 88 23 122/65 (84) 95 08/03/20 11:00 18 Mechanical Ventilator 80 08/03/20 11:00 86 19 117/63 (81) 92 08/03/20 10:30 92 18 119/65 (83) 93 08/03/20 10:22 92 19 100 08/03/20 10:00 93 16 116/62 (80) 97 08/03/20 10:00 18 Mechanical Ventilator 80 08/03/20 09:30 96 18 115/65 (82) 96 08/03/20 09:00 101 23 124/63 (83) 97 08/03/20 09:00 18 Mechanical Ventilator 80 08/03/20 08:30 97 17 123/64 (83) 98 08/03/20 08:00 98.3 96 18 116/60 (78) 98 08/03/20 08:00 100 08/03/20 08:00 96 08/03/20 08:00 18 Mechanical Ventilator 100 08/03/20 08:00 Mechanical Ventilator 08/03/20 07:30 97 29 120/62 (81) 98 08/03/20 07:20 96 18 100 08/03/20 07:00 17 Mechanical Ventilator 100 08/03/20 07:00 102 17 124/63 (83) 98 08/03/20 06:45 18 Mechanical Ventilator 100 08/03/20 06:31 16 Mechanical Ventilator 100 08/03/20 06:30 101 18 115/61 (79) 98 08/03/20 06:00 101 18 115/62 (79) 98 08/03/20 06:00 18 Mechanical Ventilator 100 08/03/20 05:30 103 18 123/60 (81) 98 08/03/20 05:00 105 18 124/66 (85) 98 08/03/20 05:00 18 Mechanical Ventilator 100 08/03/20 04:56 100.5 08/03/20 04:30 104 20 125/65 (85) 98 08/03/20 04:00 101.0 101 20 128/66 (86) 98 08/03/20 04:00 20 Mechanical Ventilator 100 08/03/20 04:00 Mechanical Ventilator 08/03/20 04:00 100 08/03/20 04:00 108 08/03/20 03:30 107 22 146/74 (98) 97 08/03/20 03:05 107 21 100 08/03/20 03:00 22 Mechanical Ventilator 100 08/03/20 03:00 107 22 136/73 (94) 97 08/03/20 02:30 107 21 147/72 (97) 97 08/03/20 02:00 108 23 144/74 (97) 97 08/03/20 02:00 23 Mechanical Ventilator 100 08/03/20 01:30 104 20 140/74 (96) 97 08/03/20 01:00 21 Mechanical Ventilator 100 08/03/20 01:00 106 21 139/74 (95) 97 08/03/20 00:30 104 20 142/76 (98) 97 08/03/20 00:00 103 08/03/20 00:00 20 Mechanical Ventilator 100 08/03/20 00:00 100 08/03/20 00:00 Mechanical Ventilator 08/03/20 00:00 99.2 104 20 139/73 (95) 97 08/02/20 23:30 102 21 141/72 (95) 97 08/02/20 23:00 21 Mechanical Ventilator 100 08/02/20 23:00 101 21 139/71 (93) 97 08/02/20 22:52 102 21 100 08/02/20 22:30 103 21 133/74 (93) 97 08/02/20 22:00 104 25 140/71 (94) 97 08/02/20 22:00 25 Mechanical Ventilator 100 08/02/20 21:30 101 20 167/74 (105) 97 08/02/20 21:00 20 Mechanical Ventilator 100 08/02/20 21:00 100 20 167/72 (103) 97 08/02/20 20:30 99 21 162/72 (102) 97 08/02/20 20:29 21 Mechanical Ventilator 100 08/02/20 20:00 99.2 97 21 159/71 (100) 98 08/02/20 20:00 100 08/02/20 20:00 96 08/02/20 20:00 Mechanical Ventilator 08/02/20 19:15 94 21 152/72 (98) 98 08/02/20 19:00 21 Endotracheal Tube 100 08/02/20 19:00 92 22 152/69 (96) 97 08/02/20 18:50 95 22 100 Intake and Output 08/02/20 08/03/20 19:00 07:00 Intake Total 2055 ml 1756.5 ml Output Total 810 ml 1170 ml Balance 1245 ml 586.5 ml IV Total 2055 ml 1756.5 ml Output Urine Total 810 ml 1170 ml Laboratory Tests 08/03/20 05:10: White Blood Count 17.7H, Red Blood Count 3.98L, Hemoglobin 13.2L, Hematocrit 39.8L, Mean Corpuscular Volume 100H, Mean Corpuscular Hemoglobin 33.2H, Mean Corpuscular Hemoglobin Concent 33.2, Red Cell Distribution Width 13.4, Platelet Count 74L, Mean Platelet Volume 7.3, Neutrophils (%) (Auto) , Lymphocytes (%) (Auto) , Monocytes (%) (Auto) , Eosinophils (%) (Auto) , Basophils (%) (Auto) , Differential Total Cells Counted 100, Neutrophils % (Manual) 91H, Lymphocytes % (Manual) 4L, Monocytes % (Manual) 5, Eosinophils % (Manual) 0, Basophils % (Manual) 0, Band Neutrophils 0, Platelet Estimate DecreasedL, Platelet Morphology Normal, Red Blood Cell Morphology Normal, Sodium Level 145, Potassium Level 5.3H, Chloride Level 112H, Carbon Dioxide Level 28, Anion Gap 5, Blood Urea Nitrogen 73H, Creatinine 3.2H, Estimat Glomerular Filtration Rate 19.6, Glucose Level 144H, Lactic Acid Level 2.60H, Uric Acid 7.6H, Calcium Level 7.6L, Phosphorus Level 7.0H, Magnesium Level 3.2H, Total Bilirubin 0.5, Direct Bilirubin 0.2, Gamma Glutamyl Transpeptidase 94H, Aspartate Amino Transf (AST/SGOT) 843H, Alanine Aminotransferase (ALT/SGPT) 1230H, Alkaline Phosphatase 166H, Ammonia 67H, Troponin I 0.902H, C-Reactive Protein, Quantitative [Pending], Pro-B-Type Natriuretic Peptide 02346M, Total Protein 5.8L, Albumin 2.3L, Globulin 3.5, Albumin/Globulin Ratio 0.7L 08/03/20 07:42: Arterial Blood pH 7.138*L, Arterial Blood Partial Pressure CO2 76.9*H, Arterial Blood Partial Pressure O2 207.5H, Arterial Blood HCO3 25.5, Arterial Blood Oxygen Saturation 98.9, Arterial Blood Base Excess -5.2L, Mehdi Test Positive 08/03/20 11:30: Lactic Acid Level 2.90H 08/03/20 12:45: Lactic Acid Level 3.00H 08/03/20 16:00: Arterial Blood pH 7.253L, Arterial Blood Partial Pressure CO2 51.5H, Arterial Blood Partial Pressure O2 68.5L, Arterial Blood HCO3 22.2, Arterial Blood Oxygen Saturation 93.1L, Arterial Blood Base Excess -5.3L, Mehdi Test Positive 08/03/20 17:35: Lactic Acid Level 2.60H Height (Feet): 5 Height (Inches): 5.00 Weight (Pounds): 160 General Appearance: lethargic EENT: normal ENT inspection Neck: normal alignment Cardiovascular: normal peripheral pulses, normal rate, regular rhythm Respiratory/Chest: chest wall non-tender, lungs clear, normal breath sounds Abdomen: normal bowel sounds, non tender, soft Extremities: normal inspection Edema: no edema noted Arm (L), no edema noted Arm (R), no edema noted Leg (L), no edema noted Leg (R), no edema noted Pedal (L), no edema noted Pedal (R), no edema noted Generalized Neurologic: motor weakness Skin: normal pigmentation, warm/dry Assessment/Plan Problem List: (1) Hypoxia ICD Codes: R09.02 - Hypoxemia SNOMED: 860730429 (2) Bilateral pneumonia ICD Codes: J18.9 - Pneumonia, unspecified organism SNOMED: 555040127, 783323087 (3) Acute respiratory failure with hypoxia ICD Codes: J96.01 - Acute respiratory failure with hypoxia SNOMED: 11042208, 663466611 (4) Bradycardia ICD Codes: R00.1 - Bradycardia, unspecified SNOMED: 65962021 (5) Malnutrition ICD Codes: E46 - Unspecified protein-calorie malnutrition SNOMED: 72907113 Status: unchanged Assessment/Plan: o2 pulm tx abx pt diet cardio f/u cbc bmp am Robert Guzman DO Aug 03, 2020 18:28
--- NOTE | 2020-08-03 19:06 | NUR ---
NURSE HAND-OFF REPORT: Latest Vital Signs: Temperature 98.3 , Pulse 94 , B/P 131 /67 , Respiratory Rate 21 , O2 SAT 92 , Mechanical Ventilator, FiO2 90% . Vital Sign Comment: EKG Rhythm: Sinus Rhythm Rhythm change?: N MD Notified?: MD Response: Latest Orozco Fall Score: 50 Fall Risk: High Risk Safety Measures: Call light Within Reach, Bed Alarm Zone 1, Side Rails Side Rails x2, Bed position Low and Locked. Fall Precautions: Yellow Socks Yellow Gown Door Sign Patient Fall Education Report given to CARLOS Solis.
--- NOTE | 2020-08-03 19:30 | NUR ---
NURSE NOTES: Received report from CARLOS Alexis. Pt is sedated on the bed and RASS score -2. Pt has ETT and orally intubated. Vent dependent and setting with AC: 16, T: 500, P: 5, FiO2 90% and SaO2 93-94%. Given suction and oral care. Pt has OGT and on running with Nepro @ 15cc/hr and no residual noted. Pt has Vernon cath and patent and drainage well. IV site intact and no sign of infiltration noted. On running with Versed @ 9mg/hr and D51/2NS @ 150cc/hr. Keep cooling measure. On chief strategy officer with SR and HR: 90's. Pt has bilateral soft restraint and checked comfort and circulation. Placed fall precaution. On Proper airborne isolation for COVID-19. Will continue to care plan.
--- NOTE | 2020-08-03 22:00 | NUR ---
NURSE NOTES: Pt is sedated on the bed and SaO2 93% with current Vent setting. Given suction and oral care. Tolerated well with current OGT feeding and increase to @ 25cc/hr. Turn and reposition. Placed fall precaution. Will continue to care plan.
[2020-08-04] VITALS (28 sets, daily range): BP systolic 139–166; BP diastolic 67–87
--- NOTE | 2020-08-04 | NUR ---
NURSE NOTES: Pt is resting on the bed. SaO2 93% with Vent. No fever noted. On clinical research monitor with ST and HR: 102's. Tolerated well with current OGT feeding. Pt is trying to reach and touch ETT and OGT. Given verbal cueing but didn't understand. Get order and applied bilateral soft restraint. checked comfort and circulation. Placed fall precaution. Will continue to monitor any change of condition.
[2020-08-04] MEDS: D5 1/2NS 1,000 ML IV SCH ×3 (00:24→14:31)
--- NOTE | 2020-08-04 02:00 | NUR ---
NURSE NOTES: Oral care and suction was done. Sedated on the bed and RASS score -2. On running with Versed drip @9mg/hr. Changed position. Will continue to monitor any change of condition.
--- NOTE | 2020-08-04 04:00 | NUR ---
NURSE NOTES: Morning care was done. Given bed bath. Cleaned Pt and applied lotion and cream. No fever noted. Tolerated well with OGT feeding and increase to @ 35cc/hr. SaO2 94% with current Vent setting. sedated on the bed and RASS -2. on running with Versed @ 9mg/hr. noted good urine output via Vernon cath. Turn and reposition. Will continue to monitor any change of condition.
[2020-08-04] MEDS: Midazolam HCl 50mg/10ml vial 100 MG in NS 180 ML IV PRN ×2 (04:50→16:29)
--- NOTE | 2020-08-04 06:00 | NUR ---
NURSE NOTES: Pt is sedated on the bed and SaO2 92% with current Vent setting. Tolerated well with OGT feeding. Turn and reposition. Will continue to monitor any change of condtion.
[2020-08-04 06:32] LABS: GAMMA GLUTAMYL TRANSPEPTIDASE 165 U/L (5-85)
[2020-08-04 06:35] LABS: AMMONIA 51 umol/L (11-32)
[2020-08-04 06:46] LABS: HEMATOCRIT 38.2 % (42.0-52.0); HEMOGLOBIN 12.3 G/DL (14.2-18.0); MEAN CORPUSCULAR VOLUME 103 FL (80-99); PLATELET COUNT 74 K/UL (150-450); RED BLOOD COUNT 3.73 M/UL (4.70-6.10); RED CELL DISTRIBUTION WIDTH 12.9 % (11.6-14.8); WHITE BLOOD COUNT 16.9 K/UL (4.8-10.8)
--- NOTE | 2020-08-04 07:27 | NUR ---
NURSE HAND-OFF REPORT: Latest Vital Signs: Temperature 98.9 , Pulse 111 , B/P 157 /78 , Respiratory Rate 27 , O2 SAT 90 , Mechanical Ventilator, O2 Flow Rate . Vital Sign Comment: EKG Rhythm: Sinus Tachycardia Rhythm change?: N Latest Orozco Fall Score: 50 Fall Risk: High Risk Safety Measures: Call light Within Reach, Bed Alarm Zone 1, Side Rails Side Rails x2, Bed position Low and Locked. Fall Precautions: Yellow Socks Yellow Gown Door Sign Patient Fall Education Report given to CARLOS Menezes. Pt is sedated on the bed and RASS -2. On running with Versed @ 9mg/hr and D51/2NS @ 150cc/hr.
--- NOTE | 2020-08-04 07:28 | NUR ---
NURSE NOTES: Received report from CARLOS Solis. Patient in bed, sedated on Versed 9mg/hr, RASS -2 at this time. Patient ETT, Vent AC 16 TV 500 PEEP 5 Fio2 90%, O2 sat 91% at this time, RT made aware of O2 sat. Suction and oral care provided. Patient on OGT , patent, intact, Nepro running @ 35ml/h. Vernon Catheter draining well to gravity at this time, IV on left AC 20G, left FA 20G, asymptomatic, patent, intact. IVF running D5 1/2 NS @ 150ml/h. No fever at this time, SR with HR 90s. Patient on bilateral soft wrist restraints, cap refill <3 sec, able to move. Bed in lowest position, side rails upx3, call light within reach, bed alarm on, Will continue to monitor.
[2020-08-04 07:47] LABS: PHOSPHORUS 5.1 MG/DL (2.5-4.9)
[2020-08-04 08:14] LABS: ALBUMIN 2.7 G/DL (3.4-5.0); ALBUMIN/GLOBULIN RATIO 0.9 (1.0-2.7); BILIRUBIN,DIRECT 0.2 MG/DL (0.0-0.3); BILIRUBIN,TOTAL 0.5 MG/DL (0.2-1.0); CALCIUM 7.5 MG/DL (8.5-10.1); CREATININE 2.6 MG/DL (0.55-1.30); POTASSIUM 4.8 MMOL/L (3.5-5.1)
[2020-08-04] MEDS: Pantoprazole Inj IVP SCH ×2 (08:41→21:50)
[2020-08-04] MEDS: dexAMETHasone 10mg/ml Inj IV SCH (08:41)
[2020-08-04] MEDS: Enoxaparin 30mg Inj SUBQ SCH (08:42)
--- NOTE | 2020-08-04 09:00 | NUR ---
NURSE NOTES: Ice applied for temperature 99.1 Axillary.
--- NOTE | 2020-08-04 09:11 | General Progress Note ---
Subjective Constitutional: Reports: weakness Allergies: Coded Allergies: No Known Allergies (Unverified , 07/29/20) All Systems: reviewed and negative except above Subjective intubated sedated in icu Objective Last 24 Hour Vital Signs Date Time Temp Pulse Resp B/P (MAP) Pulse Ox O2 Delivery O2 Flow Rate FiO2 08/04/20 07:15 117 24 90 08/04/20 07:00 27 Mechanical Ventilator 90 08/04/20 07:00 111 27 157/78 (104) 90 08/04/20 06:00 28 Mechanical Ventilator 90 08/04/20 06:00 110 28 149/74 (99) 92 08/04/20 05:00 26 Mechanical Ventilator 90 08/04/20 05:00 106 26 150/74 (99) 93 08/04/20 04:50 21 Mechanical Ventilator 90 08/04/20 04:30 107 25 153/76 (101) 92 08/04/20 04:00 98.9 108 25 154/75 (101) 94 08/04/20 04:00 100 08/04/20 04:00 25 Mechanical Ventilator 90 08/04/20 04:00 Mechanical Ventilator 08/04/20 04:00 90 08/04/20 03:57 106 25 90 08/04/20 03:30 109 30 147/75 (99) 88 08/04/20 03:00 20 Mechanical Ventilator 90 08/04/20 03:00 101 20 139/69 (92) 94 08/04/20 02:30 106 21 139/67 (91) 95 08/04/20 02:00 25 Mechanical Ventilator 100 08/04/20 02:00 105 23 149/74 (99) 95 08/04/20 01:30 105 25 151/73 (99) 95 08/04/20 01:00 105 24 148/74 (98) 94 08/04/20 01:00 24 Mechanical Ventilator 90 08/04/20 00:00 100 08/04/20 00:00 23 Mechanical Ventilator 100 08/04/20 00:00 98.8 102 23 141/71 (94) 93 08/04/20 00:00 90 08/04/20 00:00 Mechanical Ventilator 08/03/20 23:49 102 23 90 08/03/20 23:00 24 Mechanical Ventilator 100 08/03/20 23:00 104 24 143/70 (94) 93 08/03/20 22:00 25 Mechanical Ventilator 100 08/03/20 22:00 103 25 136/72 (93) 93 08/03/20 21:00 98 25 131/70 (90) 93 08/03/20 21:00 25 Mechanical Ventilator 100 08/03/20 20:30 93 23 129/70 (89) 93 08/03/20 20:00 98.8 91 19 126/68 (87) 94 08/03/20 20:00 93 08/03/20 20:00 90 08/03/20 20:00 19 Mechanical Ventilator 90 08/03/20 20:00 Mechanical Ventilator 08/03/20 19:57 95 20 90 08/03/20 19:30 93 20 126/66 (86) 93 08/03/20 19:00 94 21 131/67 (88) 92 08/03/20 19:00 18 Mechanical Ventilator 90 08/03/20 18:30 92 21 131/70 (90) 93 08/03/20 18:00 18 Mechanical Ventilator 90 08/03/20 18:00 92 22 130/69 (89) 92 08/03/20 17:45 18 Mechanical Ventilator 90 08/03/20 17:00 94 21 125/62 (83) 94 08/03/20 17:00 18 Mechanical Ventilator 90 08/03/20 16:30 90 23 124/62 (82) 94 08/03/20 16:00 73 08/03/20 16:00 98.3 73 18 114/62 (79) 94 08/03/20 16:00 90 08/03/20 16:00 18 Mechanical Ventilator 90 08/03/20 16:00 Mechanical Ventilator 08/03/20 15:30 73 17 111/63 (79) 95 08/03/20 15:23 72 26 90 08/03/20 15:00 18 Mechanical Ventilator 80 08/03/20 15:00 78 17 118/63 (81) 96 08/03/20 14:30 88 20 124/62 (82) 95 08/03/20 14:00 83 18 116/64 (81) 89 08/03/20 14:00 18 Mechanical Ventilator 80 08/03/20 13:00 85 17 120/62 (81) 96 08/03/20 13:00 18 Mechanical Ventilator 80 08/03/20 12:30 83 20 111/63 (79) 97 08/03/20 12:00 86 08/03/20 12:00 80 08/03/20 12:00 18 Mechanical Ventilator 80 08/03/20 12:00 Mechanical Ventilator 08/03/20 12:00 98.2 85 20 112/65 (81) 97 08/03/20 11:30 88 23 122/65 (84) 95 08/03/20 11:00 18 Mechanical Ventilator 80 08/03/20 11:00 86 19 117/63 (81) 92 08/03/20 10:30 92 18 119/65 (83) 93 08/03/20 10:22 92 19 100 08/03/20 10:00 93 16 116/62 (80) 97 08/03/20 10:00 18 Mechanical Ventilator 80 08/03/20 09:30 96 18 115/65 (82) 96 Intake and Output 08/03/20 08/04/20 19:00 07:00 Intake Total 1972.5 ml 1978.5 ml Output Total 1150 ml 1600 ml Balance 822.5 ml 378.5 ml IV Total 1927.5 ml 1658.5 ml Tube Feeding 45 ml 320 ml Output Urine Total 1150 ml 1600 ml Laboratory Tests 08/03/20 11:30: Lactic Acid Level 2.90H 08/03/20 12:45: Lactic Acid Level 3.00H 08/03/20 16:00: Arterial Blood pH 7.253L, Arterial Blood Partial Pressure CO2 51.5H, Arterial Blood Partial Pressure O2 68.5L, Arterial Blood HCO3 22.2, Arterial Blood Oxygen Saturation 93.1L, Arterial Blood Base Excess -5.3L, Mehdi Test Positive 08/03/20 17:35: Lactic Acid Level 2.60H 08/03/20 23:42: Lactic Acid Level 2.20H 08/04/20 05:00: Lactic Acid Level 2.70H, White Blood Count 16.9H, Red Blood Count 3.73L, Hemoglobin 12.3L, Hematocrit 38.2L, Mean Corpuscular Volume 103H, Mean Corpuscular Hemoglobin 32.9H, Mean Corpuscular Hemoglobin Concent 32.1, Red Cell Distribution Width 12.9, Platelet Count 74L, Mean Platelet Volume 6.6, Reilly trophils (%) (Auto) , Lymphocytes (%) (Auto) , Monocytes (%) (Auto) , Eosinophils (%) (Auto) , Basophils (%) (Auto) , Differential Total Cells Counted 100, Neutrophils % (Manual) 93H, Lymphocytes % (Manual) 3L, Monocytes % (Manual) 3, Eosinophils % (Manual) 1, Basophils % (Manual) 0, Band Neutrophils 0, Platelet Estimate DecreasedL, Platelet Morphology Normal, Red Blood Cell Morphology Normal, Sodium Level 146H, Potassium Level 4.8, Chloride Level 113H, Carbon Dioxide Level 26, Anion Gap 7, Blood Urea Nitrogen 74H, Creatinine 2.6H, Estimat Glomerular Filtration Rate 24.9, Glucose Level 124H, Uric Acid 6.5, Calcium Level 7.5L, Phosphorus Level 5.1H, Magnesium Level 3.4H, Total Bilirubin 0.5, Direct Bilirubin 0.2, Gamma Glutamyl Transpeptidase 165H, Aspartate Amino Transf (AST/SGOT) 932H, Alanine Aminotransferase (ALT/SGPT) 1644H, Alkaline Phosphatase 184H, Ammonia 51H, Lactate Dehydrogenase 1354H, C-Reactive Protein, Quantitative 7.9H, Pro-B-Type Natriuretic Peptide 7472H, Total Protein 5.7L, Albumin 2.7L, Globulin 3.0, Albumin/Globulin Ratio 0.9L Height (Feet): 5 Height (Inches): 5.00 Weight (Pounds): 160 General Appearance: lethargic EENT: normal ENT inspection Neck: normal alignment Cardiovascular: normal peripheral pulses, normal rate, regular rhythm Respiratory/Chest: chest wall non-tender, lungs clear, normal breath sounds Abdomen: normal bowel sounds, non tender, soft Extremities: normal inspection Edema: no edema noted Arm (L), no edema noted Arm (R), no edema noted Leg (L), no edema noted Leg (R), no edema noted Pedal (L), no edema noted Pedal (R), no edema noted Generalized Neurologic: motor weakness Skin: normal pigmentation, warm/dry Assessment/Plan Problem List: (1) Hypoxia ICD Codes: R09.02 - Hypoxemia SNOMED: 086130710 (2) Bilateral pneumonia ICD Codes: J18.9 - Pneumonia, unspecified organism SNOMED: 222851874, 241779093 (3) Acute respiratory failure with hypoxia ICD Codes: J96.01 - Acute respiratory failure with hypoxia SNOMED: 99906817, 971014526 (4) Bradycardia ICD Codes: R00.1 - Bradycardia, unspecified SNOMED: 90206042 (5) Malnutrition ICD Codes: E46 - Unspecified protein-calorie malnutrition SNOMED: 51930155 Status: unchanged Assessment/Plan: o2 pulm tx abx pt diet cardio f/u cbc bmp am Robert Guzman DO Aug 04, 2020 09:11
--- NOTE | 2020-08-04 09:31 | NUR ---
NURSE NOTES: Dr. Bains made aware patient elevated SBP 150-160s, ST 100-110s. Per Cardizem 30mg OGT Q8HR, PRN clonidine 0,1mg Q 2HR SBP >170. Order noted, entered, carried out.
--- NOTE | 2020-08-04 10:53 | NUR ---
NURSE NOTES: Dr. Guzman made aware family member, Son, Camilo would like to speak to , tele :[phone] , tele number given to .
--- NOTE | 2020-08-04 11:12 | Cardiac Electrophysiology PN ---
Assessment/Plan Assessment/Plan 1. Bradycardia off any sinus-galen or AV-galen blocking agents. Echocardiogram EF 60% 2. HTN and tachycardia. Try low dose Cardiem 30 NG tid 3. Respiratory failure due to Covid PNA intubated on 50% Fio2 and PEEP 5 4. Acute renal failure with CR 2.5 5. Shock Liver with AST and ALT >1100 6.Sepsis. White count 21,000 on IV antibiotic per Dr. Antonio. Subjective Subjective Now in ICU intubated on 50% Fio2 and PEP 5. Remdesevir DCed for renal failure and high LFTS. Has fever and thrombocytopenia. BP dropped to 80s but got better with iv fluid. EF 60% BP now high and tachycardic. Will start Cardizem 30 q8 Objective Last 24 Hour Vital Signs Date Time Temp Pulse Resp B/P (MAP) Pulse Ox O2 Delivery O2 Flow Rate FiO2 08/04/20 11:00 27 Mechanical Ventilator 90 08/04/20 10:00 114 27 154/77 (102) 90 08/04/20 10:00 27 Mechanical Ventilator 90 08/04/20 09:00 115 27 157/74 (101) 90 08/04/20 09:00 27 Mechanical Ventilator 90 08/04/20 08:00 90 08/04/20 08:00 Mechanical Ventilator 08/04/20 08:00 99.1 113 27 157/74 (101) 93 08/04/20 08:00 27 Mechanical Ventilator 90 08/04/20 08:00 109 08/04/20 07:15 117 24 90 08/04/20 07:00 27 Mechanical Ventilator 90 08/04/20 07:00 111 27 157/78 (104) 90 08/04/20 06:00 28 Mechanical Ventilator 90 08/04/20 06:00 110 28 149/74 (99) 92 08/04/20 05:00 26 Mechanical Ventilator 90 08/04/20 05:00 106 26 150/74 (99) 93 08/04/20 04:50 21 Mechanical Ventilator 90 08/04/20 04:30 107 25 153/76 (101) 92 08/04/20 04:00 98.9 108 25 154/75 (101) 94 08/04/20 04:00 100 08/04/20 04:00 25 Mechanical Ventilator 90 08/04/20 04:00 Mechanical Ventilator 08/04/20 04:00 90 08/04/20 03:57 106 25 90 08/04/20 03:30 109 30 147/75 (99) 88 08/04/20 03:00 20 Mechanical Ventilator 90 08/04/20 03:00 101 20 139/69 (92) 94 08/04/20 02:30 106 21 139/67 (91) 95 08/04/20 02:00 25 Mechanical Ventilator 100 08/04/20 02:00 105 23 149/74 (99) 95 08/04/20 01:30 105 25 151/73 (99) 95 08/04/20 01:00 105 24 148/74 (98) 94 08/04/20 01:00 24 Mechanical Ventilator 90 08/04/20 00:00 100 08/04/20 00:00 23 Mechanical Ventilator 100 08/04/20 00:00 98.8 102 23 141/71 (94) 93 08/04/20 00:00 90 08/04/20 00:00 Mechanical Ventilator 08/03/20 23:49 102 23 90 08/03/20 23:00 24 Mechanical Ventilator 100 08/03/20 23:00 104 24 143/70 (94) 93 08/03/20 22:00 25 Mechanical Ventilator 100 08/03/20 22:00 103 25 136/72 (93) 93 08/03/20 21:00 98 25 131/70 (90) 93 08/03/20 21:00 25 Mechanical Ventilator 100 08/03/20 20:30 93 23 129/70 (89) 93 08/03/20 20:00 98.8 91 19 126/68 (87) 94 08/03/20 20:00 93 08/03/20 20:00 90 08/03/20 20:00 19 Mechanical Ventilator 90 08/03/20 20:00 Mechanical Ventilator 08/03/20 19:57 95 20 90 08/03/20 19:30 93 20 126/66 (86) 93 08/03/20 19:00 94 21 131/67 (88) 92 08/03/20 19:00 18 Mechanical Ventilator 90 08/03/20 18:30 92 21 131/70 (90) 93 08/03/20 18:00 18 Mechanical Ventilator 90 08/03/20 18:00 92 22 130/69 (89) 92 08/03/20 17:45 18 Mechanical Ventilator 90 08/03/20 17:00 94 21 125/62 (83) 94 08/03/20 17:00 18 Mechanical Ventilator 90 08/03/20 16:30 90 23 124/62 (82) 94 08/03/20 16:00 73 08/03/20 16:00 98.3 73 18 114/62 (79) 94 08/03/20 16:00 90 08/03/20 16:00 18 Mechanical Ventilator 90 08/03/20 16:00 Mechanical Ventilator 08/03/20 15:30 73 17 111/63 (79) 95 08/03/20 15:23 72 26 90 08/03/20 15:00 18 Mechanical Ventilator 80 08/03/20 15:00 78 17 118/63 (81) 96 08/03/20 14:30 88 20 124/62 (82) 95 08/03/20 14:00 83 18 116/64 (81) 89 08/03/20 14:00 18 Mechanical Ventilator 80 08/03/20 13:00 85 17 120/62 (81) 96 08/03/20 13:00 18 Mechanical Ventilator 80 08/03/20 12:30 83 20 111/63 (79) 97 08/03/20 12:00 86 08/03/20 12:00 80 08/03/20 12:00 18 Mechanical Ventilator 80 08/03/20 12:00 Mechanical Ventilator 08/03/20 12:00 98.2 85 20 112/65 (81) 97 08/03/20 11:30 88 23 122/65 (84) 95 Intake and Output 08/03/20 08/04/20 19:00 07:00 Intake Total 1972.5 ml 1978.5 ml Output Total 1150 ml 1600 ml Balance 822.5 ml 378.5 ml IV Total 1927.5 ml 1658.5 ml Tube Feeding 45 ml 320 ml Output Urine Total 1150 ml 1600 ml Laboratory Tests Test 08/03/20 11:30 08/03/20 12:45 08/03/20 16:00 08/03/20 17:35 Lactic Acid Level 2.90 mmol/L (0.4-2.0) H 3.00 mmol/L (0.66-2.22) H 2.60 mmol/L (0.4-2.0) H Arterial Blood pH 7.253 (7.350-7.450) Arterial Blood Partial Pressure CO2 51.5 mmHg (35.0-45.0) H Arterial Blood Partial Pressure O2 68.5 mmHg (75.0-100.0) L Arterial Blood HCO3 22.2 mmol/L (22.0-26.0) Arterial Blood Oxygen Saturation 93.1 % (95-100) L Arterial Blood Base Excess -5.3 (-2-2) L Mehdi Test Positive Test 08/03/20 23:42 08/04/20 05:00 08/04/20 08:50 Lactic Acid Level 2.20 mmol/L (0.4-2.0) H 2.70 mmol/L (0.4-2.0) H 2.60 mmol/L (0.4-2.0) H White Blood Count 16.9 K/UL (4.8-10.8) H Red Blood Count 3.73 M/UL (4.70-6.10) L Hemoglobin 12.3 G/DL (14.2-18.0) L Hematocrit 38.2 % (42.0-52.0) L Mean Corpuscular Volume 103 FL (80-99) H Mean Corpuscular Hemoglobin 32.9 PG (27.0-31.0) H Mean Corpuscular Hemoglobin Concent 32.1 G/DL (32.0-36.0) Red Cell Distribution Width 12.9 % (11.6-14.8) Platelet Count 74 K/UL (150-450) L Mean Platelet Volume 6.6 FL (6.5-10.1) Neutrophils (%) (Auto) % (45.0-75.0) Lymphocytes (%) (Auto) % (20.0-45.0) Monocytes (%) (Auto) % (1.0-10.0) Eosinophils (%) (Auto) % (0.0-3.0) Basophils (%) (Auto) % (0.0-2.0) Differential Total Cells Counted 100 Neutrophils % (Manual) 93 % (45-75) H Lymphocytes % (Manual) 3 % (20-45) L Monocytes % (Manual) 3 % (1-10) Eosinophils % (Manual) 1 % (0-3) Basophils % (Manual) 0 % (0-2) Band Neutrophils 0 % (0-8) Platelet Estimate Decreased L Platelet Morphology Normal Red Blood Cell Morphology Normal Sodium Level 146 MMOL/L (136-145) H Potassium Level 4.8 MMOL/L (3.5-5.1) Chloride Level 113 MMOL/L (98-107) H Carbon Dioxide Level 26 MMOL/L (21-32) Anion Gap 7 mmol/L (5-15) Blood Urea Nitrogen 74 mg/dL (7-18) H Creatinine 2.6 MG/DL (0.55-1.30) H Estimat Glomerular Filtration Rate 24.9 mL/min (>60) Glucose Level 124 MG/DL (74-106) H Uric Acid 6.5 MG/DL (2.6-7.2) Calcium Level 7.5 MG/DL (8.5-10.1) L Phosphorus Level 5.1 MG/DL (2.5-4.9) H Magnesium Level 3.4 MG/DL (1.8-2.4) H Total Bilirubin 0.5 MG/DL (0.2-1.0) Direct Bilirubin 0.2 MG/DL (0.0-0.3) Gamma Glutamyl Transpeptidase 165 U/L (5-85) H Aspartate Amino Transf (AST/SGOT) 932 U/L (15-37) H Alanine Aminotransferase (ALT/SGPT) 1644 U/L (12-78) H Alkaline Phosphatase 184 U/L (46-116) H Ammonia 51 umol/L (11-32) H Lactate Dehydrogenase 1354 U/L (81-234) H C-Reactive Protein, Quantitative 7.9 mg/dL (0.00-0.90) H Pro-B-Type Natriuretic Peptide 7472 pg/mL (0-125) H Total Protein 5.7 G/DL (6.4-8.2) L Albumin 2.7 G/DL (3.4-5.0) L Globulin 3.0 g/dL Albumin/Globulin Ratio 0.9 (1.0-2.7) L Objective HEAD AND NECK: Showed no JVD. LUNGS: Clear. CARDIOVASCULAR: Shows regular S1 and S2 with no gallop. ABDOMEN: Soft. EXTREMITIES: No pitting edema. Navjot Bains MD Aug 04, 2020 11:12
--- NOTE | 2020-08-04 11:20 | NUR ---
NURSE NOTES: Dr. Everett at the bedside, made aware of Patient able to tolerate Tube feeding, elevated SBP, on IVF @ 150ml/h. Per MD will review and order accordingly. No new order received at this time.
--- NOTE | 2020-08-04 11:22 | NUR ---
NURSE NOTES: Dr. Antonio on the phone, spoke with Son, Camilo. made aware patient O2 sat 90%, per MD increase Fio2 90% to 100%.
--- NOTE | 2020-08-04 11:34 | Pulmonology Progress Note ---
Subjective ROS Limited/Unobtainable: Yes Interval Events: Intubated 08/01/20 Constitutional: Reports: no symptoms, other - [id number] HEENT: Repors: no symptoms Respiratory: Reports: no symptoms Cardiovascular: Reports: no symptoms Gastrointestinal/Abdominal: Reports: no symptoms; Denies: nausea, vomiting, diarrhea Musculoskeletal: Denies: pain Allergies: Coded Allergies: No Known Allergies (Unverified , 07/29/20) All Systems: reviewed and negative except above Objective Last 24 Hour Vital Signs Date Time Temp Pulse Resp B/P (MAP) Pulse Ox O2 Delivery O2 Flow Rate FiO2 08/04/20 11:30 100 08/04/20 11:20 113 26 90 08/04/20 11:00 27 Mechanical Ventilator 90 08/04/20 11:00 113 28 157/75 (102) 90 08/04/20 10:00 114 27 154/77 (102) 90 08/04/20 10:00 27 Mechanical Ventilator 90 08/04/20 09:00 115 27 157/74 (101) 90 08/04/20 09:00 27 Mechanical Ventilator 90 08/04/20 08:00 90 08/04/20 08:00 Mechanical Ventilator 08/04/20 08:00 99.1 113 27 157/74 (101) 93 08/04/20 08:00 27 Mechanical Ventilator 90 08/04/20 08:00 109 08/04/20 07:15 117 24 90 08/04/20 07:00 27 Mechanical Ventilator 90 08/04/20 07:00 111 27 157/78 (104) 90 08/04/20 06:00 28 Mechanical Ventilator 90 08/04/20 06:00 110 28 149/74 (99) 92 08/04/20 05:00 26 Mechanical Ventilator 90 08/04/20 05:00 106 26 150/74 (99) 93 08/04/20 04:50 21 Mechanical Ventilator 90 08/04/20 04:30 107 25 153/76 (101) 92 08/04/20 04:00 98.9 108 25 154/75 (101) 94 08/04/20 04:00 100 08/04/20 04:00 25 Mechanical Ventilator 90 08/04/20 04:00 Mechanical Ventilator 08/04/20 04:00 90 08/04/20 03:57 106 25 90 08/04/20 03:30 109 30 147/75 (99) 88 08/04/20 03:00 20 Mechanical Ventilator 90 08/04/20 03:00 101 20 139/69 (92) 94 08/04/20 02:30 106 21 139/67 (91) 95 08/04/20 02:00 25 Mechanical Ventilator 100 08/04/20 02:00 105 23 149/74 (99) 95 08/04/20 01:30 105 25 151/73 (99) 95 08/04/20 01:00 105 24 148/74 (98) 94 08/04/20 01:00 24 Mechanical Ventilator 90 08/04/20 00:00 100 08/04/20 00:00 23 Mechanical Ventilator 100 08/04/20 00:00 98.8 102 23 141/71 (94) 93 08/04/20 00:00 90 08/04/20 00:00 Mechanical Ventilator 08/03/20 23:49 102 23 90 08/03/20 23:00 24 Mechanical Ventilator 100 08/03/20 23:00 104 24 143/70 (94) 93 08/03/20 22:00 25 Mechanical Ventilator 100 08/03/20 22:00 103 25 136/72 (93) 93 08/03/20 21:00 98 25 131/70 (90) 93 08/03/20 21:00 25 Mechanical Ventilator 100 08/03/20 20:30 93 23 129/70 (89) 93 08/03/20 20:00 98.8 91 19 126/68 (87) 94 08/03/20 20:00 93 08/03/20 20:00 90 08/03/20 20:00 19 Mechanical Ventilator 90 08/03/20 20:00 Mechanical Ventilator 08/03/20 19:57 95 20 90 08/03/20 19:30 93 20 126/66 (86) 93 08/03/20 19:00 94 21 131/67 (88) 92 08/03/20 19:00 18 Mechanical Ventilator 90 08/03/20 18:30 92 21 131/70 (90) 93 08/03/20 18:00 18 Mechanical Ventilator 90 08/03/20 18:00 92 22 130/69 (89) 92 08/03/20 17:45 18 Mechanical Ventilator 90 08/03/20 17:00 94 21 125/62 (83) 94 08/03/20 17:00 18 Mechanical Ventilator 90 08/03/20 16:30 90 23 124/62 (82) 94 08/03/20 16:00 73 08/03/20 16:00 98.3 73 18 114/62 (79) 94 08/03/20 16:00 90 08/03/20 16:00 18 Mechanical Ventilator 90 08/03/20 16:00 Mechanical Ventilator 08/03/20 15:30 73 17 111/63 (79) 95 08/03/20 15:23 72 26 90 08/03/20 15:00 18 Mechanical Ventilator 80 08/03/20 15:00 78 17 118/63 (81) 96 08/03/20 14:30 88 20 124/62 (82) 95 08/03/20 14:00 83 18 116/64 (81) 89 08/03/20 14:00 18 Mechanical Ventilator 80 08/03/20 13:00 85 17 120/62 (81) 96 08/03/20 13:00 18 Mechanical Ventilator 80 08/03/20 12:30 83 20 111/63 (79) 97 08/03/20 12:00 86 08/03/20 12:00 80 08/03/20 12:00 18 Mechanical Ventilator 80 08/03/20 12:00 Mechanical Ventilator 08/03/20 12:00 98.2 85 20 112/65 (81) 97 Intake and Output 08/03/20 08/04/20 19:00 07:00 Intake Total 1972.5 ml 1978.5 ml Output Total 1150 ml 1600 ml Balance 822.5 ml 378.5 ml IV Total 1927.5 ml 1658.5 ml Tube Feeding 45 ml 320 ml Output Urine Total 1150 ml 1600 ml General Appearance: no acute distress HEENT: normocephalic, atraumatic Respiratory: lungs clear Cardiovascular: normal rate, regular rhythm Abdomen: soft, non tender Laboratory Tests 08/03/20 12:45: Lactic Acid Level 3.00H 08/03/20 16:00: Arterial Blood pH 7.253L, Arterial Blood Partial Pressure CO2 51.5H, Arterial Blood Partial Pressure O2 68.5L, Arterial Blood HCO3 22.2, Arterial Blood Oxygen Saturation 93.1L, Arterial Blood Base Excess -5.3L, Mehdi Test Positive 08/03/20 17:35: Lactic Acid Level 2.60H 08/03/20 23:42: Lactic Acid Level 2.20H 08/04/20 05:00: White Blood Count 16.9H, Red Blood Count 3.73L, Hemoglobin 12.3L, Hematocrit 38.2L, Mean Corpuscular Volume 103H, Mean Corpuscular Hemoglobin 32.9H, Mean Corpuscular Hemoglobin Concent 32.1, Red Cell Distribution Width 12.9, Platelet Count 74L, Mean Platelet Volume 6.6, Neutrophils (%) (Auto) , Lymphocytes (%) (Auto) , Monocytes (%) (Auto) , Eosinophils (%) (Auto) , Basophils (%) (Auto) , Differential Total Cells Counted 100, Neutrophils % (Manual) 93H, Lymphocytes % (Manual) 3L, Monocytes % (Manual) 3, Eosinophils % (Manual) 1, Basophils % (Manual) 0, Band Neutrophils 0, Platelet Estimate DecreasedL, Platelet Morphology Normal, Red Blood Cell Morphology Normal, Sodium Level 146H, Potassium Level 4.8, Chloride Level 113H, Carbon Dioxide Level 26, Anion Gap 7, Blood Urea Nitrogen 74H, Creatinine 2.6H, Estimat Glomerular Filtration Rate 24.9, Glucose Level 124H, Lactic Acid Level 2.70H, Uric Acid 6.5, Calcium Level 7.5L, Phosphorus Level 5.1H, Magnesium Level 3.4H, Total Bilirubin 0.5, Direct Bilirubin 0.2, Gamma Glutamyl Transpeptidase 165H, Aspartate Amino Transf (AST/SGOT) 932H, Alanine Aminotransferase (ALT/SGPT) 1644H, Alkaline Phosphatase 184H, Ammonia 51H, Lactate Dehydrogenase 1354H, C-Reactive Protein, Quantitative 7.9H, Pro-B-Type Natriuretic Peptide 7472H, Total Protein 5.7L, Albumin 2.7L, Globulin 3.0, Albumin/Globulin Ratio 0.9L 08/04/20 08:50: Lactic Acid Level 2.60H Current Medications Medications (Trade) Dose Ordered Sig/Fabiano Route PRN Reason Start Time Stop Time Status Last Admin Dose Admin Acetaminophen (Tylenol) 650 mg Q4H PRN NG Temp >100.5 08/03/20 04:15 09/02/20 04:14 08/03/20 04:26 Acetaminophen (Tylenol) 650 mg Q4H PRN RECTAL Temp >100.5 08/01/20 20:30 08/31/20 20:29 08/02/20 10:28 Albuterol Sulfate (Proventil MDI) 2 puff Q4H PRN INH Shortness of Breath 07/29/20 22:45 10/27/20 22:44 Cetylpyridinium Chloride (Cepacol) 1 lozg Q2H PRN [place] For Cough 07/30/20 21:00 10/28/20 20:59 08/01/20 08:47 Clonidine HCl (Catapres Tab) 0.1 mg Q2H PRN ORAL SBP > 170mmHg 08/04/20 09:45 11/02/20 09:44 Dexamethasone Sodium Phosphate (Decadron 10mg/ ml Inj) 6 mg DAILY IV 07/30/20 15:00 08/07/20 09:01 08/04/20 08:41 Dextrose/Sodium Chloride 1,000 ml @ 150 mls/hr Q6H40M IV 08/02/20 08:30 09/01/20 08:29 08/04/20 06:53 Diltiazem HCl (Cardizem Tab) 30 mg EVERY 8 HOURS ORAL 08/04/20 14:00 09/03/20 13:59 Enoxaparin Sodium (Lovenox) 30 mg DAILY SUBQ 08/02/20 10:00 10/31/20 09:59 Guaifenesin/ Dextromethorphan (Robitussin DM Syrup) 15 ml Q6H PRN ORAL For Cough 07/31/20 08:30 10/29/20 08:29 08/01/20 08:47 Midazolam HCl 100 mg/Sodium Chloride 200 ml @ 0 mls/hr Q24H PRN IV Restlessness 08/04/20 00:00 08/06/20 00:00 08/04/20 04:50 Morphine Sulfate (Morphine Sulfate) 4 mg Q4H PRN IVP Severe Pain (Pain Scale 7-10) 07/30/20 04:45 08/06/20 04:44 08/01/20 18:16 Pantoprazole (Protonix) 40 mg EVERY 12 HOURS IVP 08/02/20 21:00 09/01/20 20:59 08/04/20 08:41 Assessment/Plan Assessment/Plan 1. Respiratory Failure - intubated 08/01/20 - oxygenating better - Continue PEEP 12; now decreased to 5 - continue 100% Fio2; will decrease further 2. Hyponatremia - per primary MD 3. Hyperglycemia - BG control 5. Pneumonia - abx per ID - on dexamethasone (07/30-) - now on remdesivir per ID (08/01-) 6. COVID-19 rapid negative - COVID-19 PCR positive 7. Elevated inflammatory markers; ferritin, D-Dimer - likely secondary to #5 - On Lovenox Discussed with Milton Arambula MD Aug 04, 2020 11:34
--- NOTE | 2020-08-04 11:56 | Nephrology Progress Note ---
Assessment/Plan Problem List: (1) ERIKA (acute kidney injury) (2) Shock liver (3) Acute respiratory failure with hypoxia (4) Bilateral pneumonia Assessment Acute renal failure. Most likely due to hypotensive and shock from 8 PM last night to 5 AM this morning. Hyperkalemia. Acute hypoxic respiratory failure. Pneumonia with COVID-19. Elevated transaminase, most likely shock liver. Plan August 04: Renal parameters improving. LFTs remain elevated. Hemodynamically stable. Continue to monitor renal parameters. Continue per consultants. Discussed with CARLOS Greene. August 03: Patient intubated on ventilator. Renal parameters worsening. LFTs elevated. Patient is deteriorating. Will consider dialysis treatment if no reversal of kidney failure. Discussed with CARLOS Alexis. Previously: Albumin bolus Increase IV fluid Kayexalate for high potassium Monitor renal parameters Subjective ROS Limited/Unobtainable: Yes Objective Objective Last 24 Hour Vital Signs Date Time Temp Pulse Resp B/P (MAP) Pulse Ox O2 Delivery O2 Flow Rate FiO2 08/04/20 11:30 100 08/04/20 11:20 113 26 90 08/04/20 11:00 27 Mechanical Ventilator 90 08/04/20 11:00 113 28 157/75 (102) 90 08/04/20 10:00 114 27 154/77 (102) 90 08/04/20 10:00 27 Mechanical Ventilator 90 08/04/20 09:00 115 27 157/74 (101) 90 08/04/20 09:00 27 Mechanical Ventilator 90 08/04/20 08:00 90 08/04/20 08:00 Mechanical Ventilator 08/04/20 08:00 99.1 113 27 157/74 (101) 93 08/04/20 08:00 27 Mechanical Ventilator 90 08/04/20 08:00 109 08/04/20 07:15 117 24 90 08/04/20 07:00 27 Mechanical Ventilator 90 08/04/20 07:00 111 27 157/78 (104) 90 08/04/20 06:00 28 Mechanical Ventilator 90 08/04/20 06:00 110 28 149/74 (99) 92 08/04/20 05:00 26 Mechanical Ventilator 90 08/04/20 05:00 106 26 150/74 (99) 93 08/04/20 04:50 21 Mechanical Ventilator 90 08/04/20 04:30 107 25 153/76 (101) 92 08/04/20 04:00 98.9 108 25 154/75 (101) 94 08/04/20 04:00 100 08/04/20 04:00 25 Mechanical Ventilator 90 08/04/20 04:00 Mechanical Ventilator 08/04/20 04:00 90 08/04/20 03:57 106 25 90 08/04/20 03:30 109 30 147/75 (99) 88 08/04/20 03:00 20 Mechanical Ventilator 90 08/04/20 03:00 101 20 139/69 (92) 94 08/04/20 02:30 106 21 139/67 (91) 95 08/04/20 02:00 25 Mechanical Ventilator 100 08/04/20 02:00 105 23 149/74 (99) 95 08/04/20 01:30 105 25 151/73 (99) 95 08/04/20 01:00 105 24 148/74 (98) 94 08/04/20 01:00 24 Mechanical Ventilator 90 08/04/20 00:00 100 08/04/20 00:00 23 Mechanical Ventilator 100 08/04/20 00:00 98.8 102 23 141/71 (94) 93 08/04/20 00:00 90 08/04/20 00:00 Mechanical Ventilator 08/03/20 23:49 102 23 90 08/03/20 23:00 24 Mechanical Ventilator 100 08/03/20 23:00 104 24 143/70 (94) 93 08/03/20 22:00 25 Mechanical Ventilator 100 08/03/20 22:00 103 25 136/72 (93) 93 08/03/20 21:00 98 25 131/70 (90) 93 08/03/20 21:00 25 Mechanical Ventilator 100 08/03/20 20:30 93 23 129/70 (89) 93 08/03/20 20:00 98.8 91 19 126/68 (87) 94 08/03/20 20:00 93 08/03/20 20:00 90 08/03/20 20:00 19 Mechanical Ventilator 90 08/03/20 20:00 Mechanical Ventilator 08/03/20 19:57 95 20 90 08/03/20 19:30 93 20 126/66 (86) 93 08/03/20 19:00 94 21 131/67 (88) 92 08/03/20 19:00 18 Mechanical Ventilator 90 08/03/20 18:30 92 21 131/70 (90) 93 08/03/20 18:00 18 Mechanical Ventilator 90 08/03/20 18:00 92 22 130/69 (89) 92 08/03/20 17:45 18 Mechanical Ventilator 90 08/03/20 17:00 94 21 125/62 (83) 94 08/03/20 17:00 18 Mechanical Ventilator 90 08/03/20 16:30 90 23 124/62 (82) 94 08/03/20 16:00 73 08/03/20 16:00 98.3 73 18 114/62 (79) 94 08/03/20 16:00 90 08/03/20 16:00 18 Mechanical Ventilator 90 08/03/20 16:00 Mechanical Ventilator 08/03/20 15:30 73 17 111/63 (79) 95 08/03/20 15:23 72 26 90 08/03/20 15:00 18 Mechanical Ventilator 80 08/03/20 15:00 78 17 118/63 (81) 96 08/03/20 14:30 88 20 124/62 (82) 95 08/03/20 14:00 83 18 116/64 (81) 89 08/03/20 14:00 18 Mechanical Ventilator 80 08/03/20 13:00 85 17 120/62 (81) 96 08/03/20 13:00 18 Mechanical Ventilator 80 08/03/20 12:30 83 20 111/63 (79) 97 08/03/20 12:00 86 08/03/20 12:00 80 08/03/20 12:00 18 Mechanical Ventilator 80 08/03/20 12:00 Mechanical Ventilator 08/03/20 12:00 98.2 85 20 112/65 (81) 97 Current Medications Medications (Trade) Dose Ordered Sig/Fabiano Route PRN Reason Start Time Stop Time Status Last Admin Dose Admin Acetaminophen (Tylenol) 650 mg Q4H PRN NG Temp >100.5 08/03/20 04:15 09/02/20 04:14 08/03/20 04:26 Acetaminophen (Tylenol) 650 mg Q4H PRN RECTAL Temp >100.5 08/01/20 20:30 08/31/20 20:29 08/02/20 10:28 Albuterol Sulfate (Proventil MDI) 2 puff Q4H PRN INH Shortness of Breath 07/29/20 22:45 10/27/20 22:44 Cetylpyridinium Chloride (Cepacol) 1 lozg Q2H PRN [place] For Cough 07/30/20 21:00 10/28/20 20:59 08/01/20 08:47 Clonidine HCl (Catapres Tab) 0.1 mg Q2H PRN ORAL SBP > 170mmHg 08/04/20 09:45 11/02/20 09:44 Dexamethasone Sodium Phosphate (Decadron 10mg/ ml Inj) 6 mg DAILY IV 07/30/20 15:00 08/07/20 09:01 08/04/20 08:41 Dextrose/Sodium Chloride 1,000 ml @ 150 mls/hr Q6H40M IV 08/02/20 08:30 09/01/20 08:29 08/04/20 06:53 Diltiazem HCl (Cardizem Tab) 30 mg EVERY 8 HOURS ORAL 08/04/20 14:00 09/03/20 13:59 Enoxaparin Sodium (Lovenox) 30 mg DAILY SUBQ 08/02/20 10:00 10/31/20 09:59 Guaifenesin/ Dextromethorphan (Robitussin DM Syrup) 15 ml Q6H PRN ORAL For Cough 07/31/20 08:30 10/29/20 08:29 08/01/20 08:47 Midazolam HCl 100 mg/Sodium Chloride 200 ml @ 0 mls/hr Q24H PRN IV Restlessness 08/04/20 00:00 08/06/20 00:00 08/04/20 04:50 Morphine Sulfate (Morphine Sulfate) 4 mg Q4H PRN IVP Severe Pain (Pain Scale 7-10) 07/30/20 04:45 08/06/20 04:44 08/01/20 18:16 Pantoprazole (Protonix) 40 mg EVERY 12 HOURS IVP 08/02/20 21:00 09/01/20 20:59 08/04/20 08:41 Intake and Output 08/03/20 08/04/20 19:00 07:00 Intake Total 1972.5 ml 1978.5 ml Output Total 1150 ml 1600 ml Balance 822.5 ml 378.5 ml IV Total 1927.5 ml 1658.5 ml Tube Feeding 45 ml 320 ml Output Urine Total 1150 ml 1600 ml Laboratory Tests 08/03/20 12:45: Lactic Acid Level 3.00H 08/03/20 16:00: Arterial Blood pH 7.253L, Arterial Blood Partial Pressure CO2 51.5H, Arterial Blood Partial Pressure O2 68.5L, Arterial Blood HCO3 22.2, Arterial Blood Oxygen Saturation 93.1L, Arterial Blood Base Excess -5.3L, Mehdi Test Positive 08/03/20 17:35: Lactic Acid Level 2.60H 08/03/20 23:42: Lactic Acid Level 2.20H 08/04/20 05:00: White Blood Count 16.9H, Red Blood Count 3.73L, Hemoglobin 12.3L, Hematocrit 38.2L, Mean Corpuscular Volume 103H, Mean Corpuscular Hemoglobin 32.9H, Mean Corpuscular Hemoglobin Concent 32.1, Red Cell Distribution Width 12.9, Platelet Count 74L, Mean Platelet Volume 6.6, Neutrophils (%) (Auto) , Lymphocytes (%) (Auto) , Monocytes (%) (Auto) , Eosinophils (%) (Auto) , Basophils (%) (Auto) , Differential Total Cells Counted 100, Neutrophils % (Manual) 93H, Lymphocytes % (Manual) 3L, Monocytes % (Manual) 3, Eosinophils % (Manual) 1, Basophils % (Manual) 0, Band Neutrophils 0, Platelet Estimate DecreasedL, Platelet Morphology Normal, Red Blood Cell Morphology Normal, Sodium Level 146H, Potassium Level 4.8, Chloride Level 113H, Carbon Dioxide Level 26, Anion Gap 7, Blood Urea Nitrogen 74H, Creatinine 2.6H, Estimat Glomerular Filtration Rate 24.9, Glucose Level 124H, Lactic Acid Level 2.70H, Uric Acid 6.5, Calcium Level 7.5L, Phosphorus Level 5.1H, Magnesium Level 3.4H, Total Bilirubin 0.5, Direct Bilirubin 0.2, Gamma Glutamyl Transpeptidase 165H, Aspartate Amino Transf (AST/SGOT) 932H, Alanine Aminotransferase (ALT/SGPT) 1644H, Alkaline Phosphatase 184H, Ammonia 51H, Lactate Dehydrogenase 1354H, C-Reactive Protein, Quantitative 7.9H, Pro-B-Type Natriuretic Peptide 7472H, Total Protein 5.7L, Albumin 2.7L, Globulin 3.0, Albumin/Globulin Ratio 0.9L 08/04/20 08:50: Lactic Acid Level 2.60H Height (Feet): 5 Height (Inches): 5.00 Weight (Pounds): 160 General Appearance: no apparent distress EENT: other - Intubated on ventilator Cardiovascular: tachycardia Respiratory/Chest: decreased breath sounds Abdomen: distended Jared Everett MD Aug 04, 2020 11:56
--- NOTE | 2020-08-04 12:20 | Infectious Diseases Prog Note ---
Assessment/Plan Assessment/Plan antibiotics : none A 1. covid 19 pneumonia on 90 % Fi O2 with 90 % saturation 2. respiratory failure P 1. start solumedrol 2. continue isolation Subjective ROS Limited/Unobtainable: Yes Allergies: Coded Allergies: No Known Allergies (Unverified , 07/29/20) Objective Last 24 Hour Vital Signs Date Time Temp Pulse Resp B/P (MAP) Pulse Ox O2 Delivery O2 Flow Rate FiO2 08/04/20 11:30 100 08/04/20 11:20 113 26 90 08/04/20 11:00 27 Mechanical Ventilator 90 08/04/20 11:00 113 28 157/75 (102) 90 08/04/20 10:00 114 27 154/77 (102) 90 08/04/20 10:00 27 Mechanical Ventilator 90 08/04/20 09:00 115 27 157/74 (101) 90 08/04/20 09:00 27 Mechanical Ventilator 90 08/04/20 08:00 90 08/04/20 08:00 Mechanical Ventilator 08/04/20 08:00 99.1 113 27 157/74 (101) 93 08/04/20 08:00 27 Mechanical Ventilator 90 08/04/20 08:00 109 08/04/20 07:15 117 24 90 08/04/20 07:00 27 Mechanical Ventilator 90 08/04/20 07:00 111 27 157/78 (104) 90 08/04/20 06:00 28 Mechanical Ventilator 90 08/04/20 06:00 110 28 149/74 (99) 92 08/04/20 05:00 26 Mechanical Ventilator 90 08/04/20 05:00 106 26 150/74 (99) 93 08/04/20 04:50 21 Mechanical Ventilator 90 08/04/20 04:30 107 25 153/76 (101) 92 08/04/20 04:00 98.9 108 25 154/75 (101) 94 08/04/20 04:00 100 08/04/20 04:00 25 Mechanical Ventilator 90 08/04/20 04:00 Mechanical Ventilator 08/04/20 04:00 90 08/04/20 03:57 106 25 90 08/04/20 03:30 109 30 147/75 (99) 88 08/04/20 03:00 20 Mechanical Ventilator 90 08/04/20 03:00 101 20 139/69 (92) 94 08/04/20 02:30 106 21 139/67 (91) 95 08/04/20 02:00 25 Mechanical Ventilator 100 08/04/20 02:00 105 23 149/74 (99) 95 08/04/20 01:30 105 25 151/73 (99) 95 08/04/20 01:00 105 24 148/74 (98) 94 08/04/20 01:00 24 Mechanical Ventilator 90 08/04/20 00:00 100 08/04/20 00:00 23 Mechanical Ventilator 100 08/04/20 00:00 98.8 102 23 141/71 (94) 93 08/04/20 00:00 90 08/04/20 00:00 Mechanical Ventilator 08/03/20 23:49 102 23 90 08/03/20 23:00 24 Mechanical Ventilator 100 08/03/20 23:00 104 24 143/70 (94) 93 08/03/20 22:00 25 Mechanical Ventilator 100 08/03/20 22:00 103 25 136/72 (93) 93 08/03/20 21:00 98 25 131/70 (90) 93 08/03/20 21:00 25 Mechanical Ventilator 100 08/03/20 20:30 93 23 129/70 (89) 93 08/03/20 20:00 98.8 91 19 126/68 (87) 94 08/03/20 20:00 93 08/03/20 20:00 90 08/03/20 20:00 19 Mechanical Ventilator 90 08/03/20 20:00 Mechanical Ventilator 08/03/20 19:57 95 20 90 08/03/20 19:30 93 20 126/66 (86) 93 08/03/20 19:00 94 21 131/67 (88) 92 08/03/20 19:00 18 Mechanical Ventilator 90 08/03/20 18:30 92 21 131/70 (90) 93 08/03/20 18:00 18 Mechanical Ventilator 90 08/03/20 18:00 92 22 130/69 (89) 92 08/03/20 17:45 18 Mechanical Ventilator 90 08/03/20 17:00 94 21 125/62 (83) 94 08/03/20 17:00 18 Mechanical Ventilator 90 08/03/20 16:30 90 23 124/62 (82) 94 08/03/20 16:00 73 08/03/20 16:00 98.3 73 18 114/62 (79) 94 08/03/20 16:00 90 08/03/20 16:00 18 Mechanical Ventilator 90 08/03/20 16:00 Mechanical Ventilator 08/03/20 15:30 73 17 111/63 (79) 95 08/03/20 15:23 72 26 90 08/03/20 15:00 18 Mechanical Ventilator 80 08/03/20 15:00 78 17 118/63 (81) 96 08/03/20 14:30 88 20 124/62 (82) 95 08/03/20 14:00 83 18 116/64 (81) 89 08/03/20 14:00 18 Mechanical Ventilator 80 08/03/20 13:00 85 17 120/62 (81) 96 08/03/20 13:00 18 Mechanical Ventilator 80 08/03/20 12:30 83 20 111/63 (79) 97 Height (Feet): 5 Height (Inches): 5.00 Weight (Pounds): 160 HEENT: other - intubated Laboratory Tests Test 08/03/20 12:45 08/03/20 16:00 08/03/20 17:35 08/03/20 23:42 Lactic Acid Level 3.00 mmol/L (0.66-2.22) H 2.60 mmol/L (0.4-2.0) H 2.20 mmol/L (0.4-2.0) H Arterial Blood pH 7.253 (7.350-7.450) Arterial Blood Partial Pressure CO2 51.5 mmHg (35.0-45.0) H Arterial Blood Partial Pressure O2 68.5 mmHg (75.0-100.0) L Arterial Blood HCO3 22.2 mmol/L (22.0-26.0) Arterial Blood Oxygen Saturation 93.1 % (95-100) L Arterial Blood Base Excess -5.3 (-2-2) L Mehdi Test Positive Test 08/04/20 05:00 08/04/20 08:50 White Blood Count 16.9 K/UL (4.8-10.8) H Red Blood Count 3.73 M/UL (4.70-6.10) L Hemoglobin 12.3 G/DL (14.2-18.0) L Hematocrit 38.2 % (42.0-52.0) L Mean Corpuscular Volume 103 FL (80-99) H Mean Corpuscular Hemoglobin 32.9 PG (27.0-31.0) H Mean Corpuscular Hemoglobin Concent 32.1 G/DL (32.0-36.0) Red Cell Distribution Width 12.9 % (11.6-14.8) Platelet Count 74 K/UL (150-450) L Mean Platelet Volume 6.6 FL (6.5-10.1) Neutrophils (%) (Auto) % (45.0-75.0) Lymphocytes (%) (Auto) % (20.0-45.0) Monocytes (%) (Auto) % (1.0-10.0) Eosinophils (%) (Auto) % (0.0-3.0) Basophils (%) (Auto) % (0.0-2.0) Differential Total Cells Counted 100 Neutrophils % (Manual) 93 % (45-75) H Lymphocytes % (Manual) 3 % (20-45) L Monocytes % (Manual) 3 % (1-10) Eosinophils % (Manual) 1 % (0-3) Basophils % (Manual) 0 % (0-2) Band Neutrophils 0 % (0-8) Platelet Estimate Decreased L Platelet Morphology Normal Red Blood Cell Morphology Normal Sodium Level 146 MMOL/L (136-145) H Potassium Level 4.8 MMOL/L (3.5-5.1) Chloride Level 113 MMOL/L (98-107) H Carbon Dioxide Level 26 MMOL/L (21-32) Anion Gap 7 mmol/L (5-15) Blood Urea Nitrogen 74 mg/dL (7-18) H Creatinine 2.6 MG/DL (0.55-1.30) H Estimat Glomerular Filtration Rate 24.9 mL/min (>60) Glucose Level 124 MG/DL (74-106) H Lactic Acid Level 2.70 mmol/L (0.4-2.0) H 2.60 mmol/L (0.4-2.0) H Uric Acid 6.5 MG/DL (2.6-7.2) Calcium Level 7.5 MG/DL (8.5-10.1) L Phosphorus Level 5.1 MG/DL (2.5-4.9) H Magnesium Level 3.4 MG/DL (1.8-2.4) H Total Bilirubin 0.5 MG/DL (0.2-1.0) Direct Bilirubin 0.2 MG/DL (0.0-0.3) Gamma Glutamyl Transpeptidase 165 U/L (5-85) H Aspartate Amino Transf (AST/SGOT) 932 U/L (15-37) H Alanine Aminotransferase (ALT/SGPT) 1644 U/L (12-78) H Alkaline Phosphatase 184 U/L (46-116) H Ammonia 51 umol/L (11-32) H Lactate Dehydrogenase 1354 U/L (81-234) H C-Reactive Protein, Quantitative 7.9 mg/dL (0.00-0.90) H Pro-B-Type Natriuretic Peptide 7472 pg/mL (0-125) H Total Protein 5.7 G/DL (6.4-8.2) L Albumin 2.7 G/DL (3.4-5.0) L Globulin 3.0 g/dL Albumin/Globulin Ratio 0.9 (1.0-2.7) L Current Medications Medications (Trade) Dose Ordered Sig/Fabiano Route PRN Reason Start Time Stop Time Status Last Admin Dose Admin Acetaminophen (Tylenol) 650 mg Q4H PRN NG Temp >100.5 08/03/20 04:15 09/02/20 04:14 08/03/20 04:26 Acetaminophen (Tylenol) 650 mg Q4H PRN RECTAL Temp >100.5 08/01/20 20:30 08/31/20 20:29 08/02/20 10:28 Albuterol Sulfate (Proventil MDI) 2 puff Q4H PRN INH Shortness of Breath 07/29/20 22:45 10/27/20 22:44 Cetylpyridinium Chloride (Cepacol) 1 lozg Q2H PRN [place] For Cough 07/30/20 21:00 10/28/20 20:59 08/01/20 08:47 Clonidine HCl (Catapres Tab) 0.1 mg Q2H PRN ORAL SBP > 170mmHg 08/04/20 09:45 11/02/20 09:44 Dexamethasone Sodium Phosphate (Decadron 10mg/ ml Inj) 6 mg DAILY IV 07/30/20 15:00 08/07/20 09:01 08/04/20 08:41 Dextrose/Sodium Chloride 1,000 ml @ 100 mls/hr Q10H IV 08/02/20 08:30 09/01/20 08:29 08/04/20 06:53 Diltiazem HCl (Cardizem Tab) 30 mg EVERY 8 HOURS ORAL 08/04/20 14:00 09/03/20 13:59 Enoxaparin Sodium (Lovenox) 30 mg DAILY SUBQ 08/02/20 10:00 10/31/20 09:59 Guaifenesin/ Dextromethorphan (Robitussin DM Syrup) 15 ml Q6H PRN ORAL For Cough 07/31/20 08:30 10/29/20 08:29 08/01/20 08:47 Midazolam HCl 100 mg/Sodium Chloride 200 ml @ 0 mls/hr Q24H PRN IV Restlessness 08/04/20 00:00 08/06/20 00:00 08/04/20 04:50 Morphine Sulfate (Morphine Sulfate) 4 mg Q4H PRN IVP Severe Pain (Pain Scale 7-10) 07/30/20 04:45 08/06/20 04:44 08/01/20 18:16 Pantoprazole (Protonix) 40 mg EVERY 12 HOURS IVP 08/02/20 21:00 09/01/20 20:59 08/04/20 08:41 Santosh Cheek MD Aug 04, 2020 12:20
[2020-08-04] MEDS: Solu-MEDROL 40mg Inj IVP SCH ×2 (12:46→21:50)
[2020-08-04] MEDS: dilTIAZem HCl 30mg tab ORAL SCH ×2 (13:03→21:52)
--- NOTE | 2020-08-04 13:15 | NUR ---
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
--- NOTE | 2020-08-04 14:23 | General Progress Note ---
Subjective ROS Limited/Unobtainable: No Allergies: Coded Allergies: No Known Allergies (Unverified , 07/29/20) Objective Last 24 Hour Vital Signs Date Time Temp Pulse Resp B/P (MAP) Pulse Ox O2 Delivery O2 Flow Rate FiO2 08/04/20 13:03 113 157/75 08/04/20 13:00 112 29 158/78 (104) 92 08/04/20 13:00 29 Mechanical Ventilator 100 08/04/20 12:00 Mechanical Ventilator 08/04/20 12:00 104 08/04/20 12:00 100 08/04/20 12:00 98.6 112 26 157/78 (104) 93 08/04/20 12:00 26 Mechanical Ventilator 100 08/04/20 11:30 100 08/04/20 11:20 113 26 90 08/04/20 11:00 27 Mechanical Ventilator 90 08/04/20 11:00 113 28 157/75 (102) 90 08/04/20 10:00 114 27 154/77 (102) 90 08/04/20 10:00 27 Mechanical Ventilator 90 08/04/20 09:00 115 27 157/74 (101) 90 08/04/20 09:00 27 Mechanical Ventilator 90 08/04/20 08:00 90 08/04/20 08:00 Mechanical Ventilator 08/04/20 08:00 99.1 113 27 157/74 (101) 93 08/04/20 08:00 27 Mechanical Ventilator 90 08/04/20 08:00 109 08/04/20 07:15 117 24 90 08/04/20 07:00 27 Mechanical Ventilator 90 08/04/20 07:00 111 27 157/78 (104) 90 08/04/20 06:00 28 Mechanical Ventilator 90 08/04/20 06:00 110 28 149/74 (99) 92 08/04/20 05:00 26 Mechanical Ventilator 90 08/04/20 05:00 106 26 150/74 (99) 93 08/04/20 04:50 21 Mechanical Ventilator 90 08/04/20 04:30 107 25 153/76 (101) 92 08/04/20 04:00 98.9 108 25 154/75 (101) 94 08/04/20 04:00 100 08/04/20 04:00 25 Mechanical Ventilator 90 08/04/20 04:00 Mechanical Ventilator 08/04/20 04:00 90 08/04/20 03:57 106 25 90 08/04/20 03:30 109 30 147/75 (99) 88 08/04/20 03:00 20 Mechanical Ventilator 90 08/04/20 03:00 101 20 139/69 (92) 94 08/04/20 02:30 106 21 139/67 (91) 95 08/04/20 02:00 25 Mechanical Ventilator 100 08/04/20 02:00 105 23 149/74 (99) 95 08/04/20 01:30 105 25 151/73 (99) 95 08/04/20 01:00 105 24 148/74 (98) 94 08/04/20 01:00 24 Mechanical Ventilator 90 08/04/20 00:00 100 08/04/20 00:00 23 Mechanical Ventilator 100 08/04/20 00:00 98.8 102 23 141/71 (94) 93 08/04/20 00:00 90 08/04/20 00:00 Mechanical Ventilator 08/03/20 23:49 102 23 90 08/03/20 23:00 24 Mechanical Ventilator 100 08/03/20 23:00 104 24 143/70 (94) 93 08/03/20 22:00 25 Mechanical Ventilator 100 08/03/20 22:00 103 25 136/72 (93) 93 08/03/20 21:00 98 25 131/70 (90) 93 08/03/20 21:00 25 Mechanical Ventilator 100 08/03/20 20:30 93 23 129/70 (89) 93 08/03/20 20:00 98.8 91 19 126/68 (87) 94 08/03/20 20:00 93 08/03/20 20:00 90 08/03/20 20:00 19 Mechanical Ventilator 90 08/03/20 20:00 Mechanical Ventilator 08/03/20 19:57 95 20 90 08/03/20 19:30 93 20 126/66 (86) 93 08/03/20 19:00 94 21 131/67 (88) 92 08/03/20 19:00 18 Mechanical Ventilator 90 08/03/20 18:30 92 21 131/70 (90) 93 08/03/20 18:00 18 Mechanical Ventilator 90 08/03/20 18:00 92 22 130/69 (89) 92 08/03/20 17:45 18 Mechanical Ventilator 90 08/03/20 17:00 94 21 125/62 (83) 94 08/03/20 17:00 18 Mechanical Ventilator 90 08/03/20 16:30 90 23 124/62 (82) 94 08/03/20 16:00 73 08/03/20 16:00 98.3 73 18 114/62 (79) 94 08/03/20 16:00 90 08/03/20 16:00 18 Mechanical Ventilator 90 08/03/20 16:00 Mechanical Ventilator 08/03/20 15:30 73 17 111/63 (79) 95 08/03/20 15:23 72 26 90 08/03/20 15:00 18 Mechanical Ventilator 80 08/03/20 15:00 78 17 118/63 (81) 96 08/03/20 14:30 88 20 124/62 (82) 95 Intake and Output 08/03/20 08/04/20 19:00 07:00 Intake Total 1972.5 ml 1978.5 ml Output Total 1150 ml 1600 ml Balance 822.5 ml 378.5 ml IV Total 1927.5 ml 1658.5 ml Tube Feeding 45 ml 320 ml Output Urine Total 1150 ml 1600 ml Laboratory Tests 08/03/20 16:00: Arterial Blood pH 7.253L, Arterial Blood Partial Pressure CO2 51.5H, Arterial Blood Partial Pressure O2 68.5L, Arterial Blood HCO3 22.2, Arterial Blood Oxygen Saturation 93.1L, Arterial Blood Base Excess -5.3L, Mehdi Test Positive 08/03/20 17:35: Lactic Acid Level 2.60H 08/03/20 23:42: Lactic Acid Level 2.20H 08/04/20 05:00: Lactic Acid Level 2.70H, White Blood Count 16.9H, Red Blood Count 3.73L, Hemoglobin 12.3L, Hematocrit 38.2L, Mean Corpuscular Volume 103H, Mean Corpuscular Hemoglobin 32.9H, Mean Corpuscular Hemoglobin Concent 32.1, Red Cell Distribution Width 12.9, Platelet Count 74L, Mean Platelet Volume 6.6, Neutrophils (%) (Auto) , Lymphocytes (%) (Auto) , Monocytes (%) (Auto) , Eosinophils (%) (Auto) , Basophils (%) (Auto) , Differential Total Cells Counted 100, Neutrophils % (Manual) 93H, Lymphocytes % (Manual) 3L, Monocytes % (Manual) 3, Eosinophils % (Manual) 1, Basophils % (Manual) 0, Band Neutrophils 0, Plat elet Estimate DecreasedL, Platelet Morphology Normal, Red Blood Cell Morphology Normal, Sodium Level 146H, Potassium Level 4.8, Chloride Level 113H, Carbon Dioxide Level 26, Anion Gap 7, Blood Urea Nitrogen 74H, Creatinine 2.6H, Estimat Glomerular Filtration Rate 24.9, Glucose Level 124H, Uric Acid 6.5, Calcium Level 7.5L, Phosphorus Level 5.1H, Magnesium Level 3.4H, Total Bilirubin 0.5, Direct Bilirubin 0.2, Gamma Glutamyl Transpeptidase 165H, Aspartate Amino Transf (AST/SGOT) 932H, Alanine Aminotransferase (ALT/SGPT) 1644H, Alkaline Phosphatase 184H, Ammonia 51H, Lactate Dehydrogenase 1354H, C-Reactive Protein, Quantitative 7.9H, Pro-B-Type Natriuretic Peptide 7472H, Total Protein 5.7L, Albumin 2.7L, Globulin 3.0, Albumin/Globulin Ratio 0.9L 08/04/20 08:50: Lactic Acid Level 2.60H Height (Feet): 5 Height (Inches): 5.00 Weight (Pounds): 160 General Appearance: lethargic, mild distress Neck: supple Cardiovascular: bradycardia Respiratory/Chest: decreased breath sounds Abdomen: soft, hypoactive bowel sounds Extremities: non-tender Assessment/Plan Problem List: (1) Hypoxia ICD Codes: R09.02 - Hypoxemia SNOMED: 966086840 (2) Bilateral pneumonia ICD Codes: J18.9 - Pneumonia, unspecified organism SNOMED: 321012892, 471509942 (3) Acute respiratory failure with hypoxia ICD Codes: J96.01 - Acute respiratory failure with hypoxia SNOMED: 04791592, 604298310 (4) Bradycardia ICD Codes: R00.1 - Bradycardia, unspecified SNOMED: 79029664 (5) Malnutrition ICD Codes: E46 - Unspecified protein-calorie malnutrition SNOMED: 62905530 (6) Shock liver ICD Codes: K72.00 - Acute and subacute hepatic failure without coma SNOMED: 216625077 (7) ERIKA (acute kidney injury) ICD Codes: N17.9 - Acute kidney failure, unspecified SNOMED: 8633225, 35882205 Status: unchanged Assessment/Plan: [facility] covid care fu labs abx per ID will fu Enoch Varner MD Aug 04, 2020 14:23
--- NOTE | 2020-08-04 15:49 | Diagnostic Imaging Report ---
Indication: Shortness of breath Technique: One view of the chest Comparison: 08/01/2020 Findings: Interim placement of orogastric tube. Stable satisfactory position of endotracheal tube. Extensive bilateral infiltrates are unchanged. Impression: Satisfactory orogastric tube placement. Otherwise unchanged
--- NOTE | 2020-08-04 19:26 | Surgery Progress Note ---
Surgery Progress Note Subjective Additional Comments ill appearing on support labs noted wbc trending down no n/v Objective Last 24 Hour Vital Signs Date Time Temp Pulse Resp B/P (MAP) Pulse Ox O2 Delivery O2 Flow Rate FiO2 08/04/20 18:00 115 26 164/85 (111) 91 08/04/20 18:00 27 Mechanical Ventilator 100 08/04/20 17:00 27 Mechanical Ventilator 100 08/04/20 17:00 107 25 154/82 (106) 91 08/04/20 16:29 27 100 08/04/20 16:00 Mechanical Ventilator 08/04/20 16:00 113 08/04/20 16:00 27 Mechanical Ventilator 100 08/04/20 16:00 98.9 114 27 166/85 (112) 90 08/04/20 16:00 100 08/04/20 15:20 109 27 90 08/04/20 15:00 25 Mechanical Ventilator 100 08/04/20 15:00 107 25 154/82 (106) 91 08/04/20 14:00 24 100 08/04/20 14:00 104 24 144/73 (96) 91 08/04/20 13:03 113 157/75 08/04/20 13:00 112 29 158/78 (104) 92 08/04/20 13:00 29 Mechanical Ventilator 100 08/04/20 12:00 Mechanical Ventilator 08/04/20 12:00 104 08/04/20 12:00 100 08/04/20 12:00 98.6 112 26 157/78 (104) 93 08/04/20 12:00 26 Mechanical Ventilator 100 08/04/20 11:30 100 08/04/20 11:20 113 26 90 08/04/20 11:00 27 Mechanical Ventilator 90 08/04/20 11:00 113 28 157/75 (102) 90 08/04/20 10:00 114 27 154/77 (102) 90 08/04/20 10:00 27 Mechanical Ventilator 90 08/04/20 09:00 115 27 157/74 (101) 90 08/04/20 09:00 27 Mechanical Ventilator 90 08/04/20 08:00 90 08/04/20 08:00 Mechanical Ventilator 08/04/20 08:00 99.1 113 27 157/74 (101) 93 08/04/20 08:00 27 Mechanical Ventilator 90 08/04/20 08:00 109 1/11/21 07:15 117 24 90 08/04/20 07:00 27 Mechanical Ventilator 90 08/04/20 07:00 111 27 157/78 (104) 90 08/04/20 06:00 28 Mechanical Ventilator 90 08/04/20 06:00 110 28 149/74 (99) 92 08/04/20 05:00 26 Mechanical Ventilator 90 08/04/20 05:00 106 26 150/74 (99) 93 08/04/20 04:50 21 Mechanical Ventilator 90 08/04/20 04:30 107 25 153/76 (101) 92 08/04/20 04:00 98.9 108 25 154/75 (101) 94 08/04/20 04:00 100 08/04/20 04:00 25 Mechanical Ventilator 90 08/04/20 04:00 Mechanical Ventilator 08/04/20 04:00 90 08/04/20 03:57 106 25 90 08/04/20 03:30 109 30 147/75 (99) 88 08/04/20 03:00 20 Mechanical Ventilator 90 08/04/20 03:00 101 20 139/69 (92) 94 08/04/20 02:30 106 21 139/67 (91) 95 08/04/20 02:00 25 Mechanical Ventilator 100 08/04/20 02:00 105 23 149/74 (99) 95 08/04/20 01:30 105 25 151/73 (99) 95 08/04/20 01:00 105 24 148/74 (98) 94 08/04/20 01:00 24 Mechanical Ventilator 90 08/04/20 00:00 100 08/04/20 00:00 23 Mechanical Ventilator 100 08/04/20 00:00 98.8 102 23 141/71 (94) 93 08/04/20 00:00 90 08/04/20 00:00 Mechanical Ventilator 08/03/20 23:49 102 23 90 08/03/20 23:00 24 Mechanical Ventilator 100 08/03/20 23:00 104 24 143/70 (94) 93 08/03/20 22:00 25 Mechanical Ventilator 100 08/03/20 22:00 103 25 136/72 (93) 93 08/03/20 21:00 98 25 131/70 (90) 93 08/03/20 21:00 25 Mechanical Ventilator 100 08/03/20 20:30 93 23 129/70 (89) 93 08/03/20 20:00 98.8 91 19 126/68 (87) 94 08/03/20 20:00 93 08/03/20 20:00 90 08/03/20 20:00 19 Mechanical Ventilator 90 08/03/20 20:00 Mechanical Ventilator 08/03/20 19:57 95 20 90 08/03/20 19:30 93 20 126/66 (86) 93 I&O Intake and Output 08/03/20 08/04/20 19:00 07:00 Intake Total 1972.5 ml 1978.5 ml Output Total 1150 ml 1600 ml Balance 822.5 ml 378.5 ml IV Total 1927.5 ml 1658.5 ml Tube Feeding 45 ml 320 ml Output Urine Total 1150 ml 1600 ml Dressing: saturated Cardiovascular: RSR Respiratory: decreased breath sounds Abdomen: non-tender, present bowel sounds Extremities: no tenderness, no cyanosis Laboratory Tests Test 08/03/20 23:42 08/04/20 05:00 08/04/20 08:50 Lactic Acid Level 2.20 mmol/L (0.4-2.0) H 2.70 mmol/L (0.4-2.0) H 2.60 mmol/L (0.4-2.0) H White Blood Count 16.9 K/UL (4.8-10.8) H Red Blood Count 3.73 M/UL (4.70-6.10) L Hemoglobin 12.3 G/DL (14.2-18.0) L Hematocrit 38.2 % (42.0-52.0) L Mean Corpuscular Volume 103 FL (80-99) H Mean Corpuscular Hemoglobin 32.9 PG (27.0-31.0) H Mean Corpuscular Hemoglobin Concent 32.1 G/DL (32.0-36.0) Red Cell Distribution Width 12.9 % (11.6-14.8) Platelet Count 74 K/UL (150-450) L Mean Platelet Volume 6.6 FL (6.5-10.1) Neutrophils (%) (Auto) % (45.0-75.0) Lymphocytes (%) (Auto) % (20.0-45.0) Monocytes (%) (Auto) % (1.0-10.0) Eosinophils (%) (Auto) % (0.0-3.0) Basophils (%) (Auto) % (0.0-2.0) Differential Total Cells Counted 100 Neutrophils % (Manual) 93 % (45-75) H Lymphocytes % (Manual) 3 % (20-45) L Monocytes % (Manual) 3 % (1-10) Eosinophils % (Manual) 1 % (0-3) Basophils % (Manual) 0 % (0-2) Band Neutrophils 0 % (0-8) Platelet Estimate Decreased L Platelet Morphology Normal Red Blood Cell Morphology Normal Sodium Level 146 MMOL/L (136-145) H Potassium Level 4.8 MMOL/L (3.5-5.1) Chloride Level 113 MMOL/L (98-107) H Carbon Dioxide Level 26 MMOL/L (21-32) Anion Gap 7 mmol/L (5-15) Blood Urea Nitrogen 74 mg/dL (7-18) H Creatinine 2.6 MG/DL (0.55-1.30) H Estimat Glomerular Filtration Rate 24.9 mL/min (>60) Glucose Level 124 MG/DL (74-106) H Uric Acid 6.5 MG/DL (2.6-7.2) Calcium Level 7.5 MG/DL (8.5-10.1) L Phosphorus Level 5.1 MG/DL (2.5-4.9) H Magnesium Level 3.4 MG/DL (1.8-2.4) H Total Bilirubin 0.5 MG/DL (0.2-1.0) Direct Bilirubin 0.2 MG/DL (0.0-0.3) Gamma Glutamyl Transpeptidase 165 U/L (5-85) H Aspartate Amino Transf (AST/SGOT) 932 U/L (15-37) H Alanine Aminotransferase (ALT/SGPT) 1644 U/L (12-78) H Alkaline Phosphatase 184 U/L (46-116) H Ammonia 51 umol/L (11-32) H Lactate Dehydrogenase 1354 U/L (81-234) H C-Reactive Protein, Quantitative 7.9 mg/dL (0.00-0.90) H Pro-B-Type Natriuretic Peptide 7472 pg/mL (0-125) H Total Protein 5.7 G/DL (6.4-8.2) L Albumin 2.7 G/DL (3.4-5.0) L Globulin 3.0 g/dL Albumin/Globulin Ratio 0.9 (1.0-2.7) L Plan Problems: (1) Hypoxia (2) Bilateral pneumonia (3) Acute respiratory failure with hypoxia Assessment & Plan: ards covid negative as per pulm id input appreciated abd pain likely cramping indigestion from ill ness ppi ordered okay for diet monitor intake am labs will follow with exam and recs acute decline intubated in ICU on vent liver insufficiency acute hepatic in sufficiency renal insufficiency no acute surgical intervention needs resuscitation meds reviewed (4) Bradycardia (5) Malnutrition Assessment & Plan: DAILY ESTIMATED NEEDS: Needs based on Criticin care 64.5kg abw 22-28 kcals/kg 8943-1290 total kcals 1.2-2 g protein/kg 77-129 g total protein 25-30 mL/kg 6983-3411 total fluid mLs NUTRITION DIAGNOSIS: Altered nutrition related lab values related to clinical status as evidenced by elev LD(665), elev WBC(trending down 17.7), elev BG(132-176), elevated lytes(K, phos, mg), elev renal labs (BUN73, creat 3.2), elev LFT's ENTERAL NUTRITION RECOMMENDATIONS: As medically able, rec non oral feeds: NEPRO @35ml/hr x24 hrs to provide 840ml, 1512 kcal, 68g pro, 611ml free H2O - With hemodynamic stability, rec OGt feeds to meet est needs. - Start Nepro @15ml/hr for 6 hrs, advance as tolerated 10ml/hr q4-6 hrs to goal - Flush per MD. HOB over 30 degrees - When tolerating TF at goal, add Prosource 1 pack daily to better meet est pro needs. ADDITIONAL RECOMMENDATIONS: 1) recalibrate bed scale wt for accurate CBW 2) Monitor BG, need for NISS 3) TF recs as above when stable for feeds . Vern Quevedo Aug 04, 2020 19:26
--- NOTE | 2020-08-04 19:31 | NUR ---
NURSE HAND-OFF REPORT: Latest Vital Signs: Temperature 98.9 , Pulse 116 , B/P 161 /82 , Respiratory Rate 25 , O2 SAT 90 , Mechanical Ventilator, O2 Flow Rate . Vital Sign Comment: elevated SBP, Dr. Bains aware, PRN med ordered EKG Rhythm: Sinus Tachycardia Rhythm change?: N Notified?: Y -Dr. Thomas LOCO Response: Latest Orozco Fall Score: 50 Fall Risk: High Risk Safety Measures: Call light Within Reach, Bed Alarm Zone 1, Side Rails Side Rails x2, Bed position Low and Locked. Fall Precautions: Yellow Socks Yellow Gown Door Sign Patient Fall Education Report given to CARLOS Herman.
--- NOTE | 2020-08-04 19:32 | NUR ---
NURSE NOTES: Report received from CARLOS Greene. Upon assessment pt RASS Score of -2; lightly sedated and responsive to voice. PERRLA. 5-lead EKG shows ST at 115 bpm. Saturating 90% on vent settings of AC 16, Vt 500, 100% fiO2, PEEP 5. OGT running Nepro @ 35 mL/hr with 0 residual. Vernon draining well to gravity. Left AC running Versed at 9mg/hr. Left forearm running D51/2 NS at 100 mL. Bilateral soft wrist restraints observed. Bed kept in lowest and locked position. Bed alarm on. Side rails up x3. Call light within reach. Will continue to monitor.
[2020-08-05] VITALS (41 sets, daily range): BP systolic 141–170; BP diastolic 66–94
[2020-08-05] MEDS: D5 1/2NS 1,000 ML IV SCH (00:17)
--- NOTE | 2020-08-05 03:00 | NUR ---
NURSE NOTES: No cardiopulmonary distress noted. -2 RASS score continued on versed drip. No bleeding noted. Bed bath and oral care provided. No bleeding noted. Will monitor.
[2020-08-05] MEDS: Midazolam HCl 50mg/10ml vial 100 MG in NS 180 ML IV PRN ×2 (03:05→14:28)
[2020-08-05] MEDS: dilTIAZem HCl 30mg tab ORAL SCH (05:06)
--- NOTE | 2020-08-05 05:30 | NUR ---
NURSE NOTES: Patient oxygen saturation appears to be improving to 95% from 90% despite latest ABG's. Request to wean A/C, per RT. Will monitor.
[2020-08-05 06:13] LABS: HEMATOCRIT 39.7 % (42.0-52.0); HEMOGLOBIN 12.9 G/DL (14.2-18.0); MEAN CORPUSCULAR VOLUME 103 FL (80-99); PLATELET COUNT 98 K/UL (150-450); RED BLOOD COUNT 3.86 M/UL (4.70-6.10); RED CELL DISTRIBUTION WIDTH 13.2 % (11.6-14.8)
--- NOTE | 2020-08-05 06:46 | Consultation ---
History of Present Illness General Chief Complaint: Dyspnea/Respdistress Present Illness Allergies: Coded Allergies: No Known Allergies (Unverified , 07/29/20) Medication History Scheduled Ascorbic Acid* (Vitamin C*), Unknown Dose ORAL DAILY, (Reported) Azithromycin* (Zithromax*), 250 MG ORAL DAILY, (Reported) Prednisone* (Prednisone*), 10 MG ORAL DAILY, (Reported) Miscellaneous Medications Guaifenesin/Dextromethorphan (Siltussin Dm Cough Syrup), Unknown Dose PO, (Reported) Vit A Acet/Vit C/Znox/Propolis (Zinc Lozenges), 1 EACH ORAL, (Reported) Patient History Healthcare decision maker Resuscitation status Advanced Directive on File Physical Exam Last 24 Hour Vital Signs Date Time Temp Pulse Resp B/P (MAP) Pulse Ox O2 Delivery O2 Flow Rate FiO2 08/05/20 06:00 112 22 157/85 (109) 93 08/05/20 06:00 23 100 08/05/20 05:06 117 167/88 08/05/20 05:00 115 25 163/94 (117) 95 08/05/20 05:00 21 Mechanical Ventilator 100 08/05/20 04:00 115 08/05/20 04:00 Mechanical Ventilator 08/05/20 04:00 99.9 114 25 156/86 (109) 92 08/05/20 04:00 22 100 08/05/20 03:14 115 27 100 08/05/20 03:05 23 Mechanical Ventilator 100 08/05/20 03:00 113 22 159/85 (109) 94 08/05/20 02:00 114 23 153/88 (109) 91 08/05/20 01:00 113 20 161/82 (108) 91 08/05/20 00:00 100 08/05/20 00:00 Mechanical Ventilator 08/05/20 00:00 110 08/05/20 00:00 99.1 109 22 147/82 (103) 92 08/04/20 23:00 112 24 154/84 (107) 92 08/04/20 23:00 24 Mechanical Ventilator 100 08/04/20 22:43 121 26 100 08/04/20 22:00 118 27 163/87 (112) 91 08/04/20 22:00 24 Mechanical Ventilator 100 08/04/20 21:52 114 153/87 08/04/20 21:00 116 25 153/87 (109) 91 08/04/20 21:00 27 Mechanical Ventilator 100 08/04/20 20:00 Mechanical Ventilator 08/04/20 20:00 99.5 115 26 157/87 (110) 90 08/04/20 20:00 24 Mechanical Ventilator 100 08/04/20 20:00 113 08/04/20 20:00 100 08/04/20 19:00 26 Mechanical Ventilator 100.0 100 08/04/20 19:00 115 27 100 08/04/20 19:00 116 25 161/82 (108) 90 08/04/20 18:00 115 26 164/85 (111) 91 08/04/20 18:00 27 Mechanical Ventilator 100 08/04/20 17:00 27 Mechanical Ventilator 100 08/04/20 17:00 107 25 154/82 (106) 91 08/04/20 16:29 27 100 08/04/20 16:00 Mechanical Ventilator 08/04/20 16:00 113 08/04/20 16:00 27 Mechanical Ventilator 100 08/04/20 16:00 98.9 114 27 166/85 (112) 90 08/04/20 16:00 100 08/04/20 15:20 109 27 90 08/04/20 15:00 25 Mechanical Ventilator 100 08/04/20 15:00 107 25 154/82 (106) 91 08/04/20 14:00 24 100 08/04/20 14:00 104 24 144/73 (96) 91 08/04/20 13:03 113 157/75 08/04/20 13:00 112 29 158/78 (104) 92 08/04/20 13:00 29 Mechanical Ventilator 100 08/04/20 12:00 Mechanical Ventilator 08/04/20 12:00 104 08/04/20 12:00 100 08/04/20 12:00 98.6 112 26 157/78 (104) 93 08/04/20 12:00 26 Mechanical Ventilator 100 08/04/20 11:30 100 08/04/20 11:20 113 26 90 08/04/20 11:00 27 Mechanical Ventilator 90 08/04/20 11:00 113 28 157/75 (102) 90 08/04/20 10:00 114 27 154/77 (102) 90 08/04/20 10:00 27 Mechanical Ventilator 90 08/04/20 09:00 115 27 157/74 (101) 90 08/04/20 09:00 27 Mechanical Ventilator 90 08/04/20 08:00 90 08/04/20 08:00 Mechanical Ventilator 08/04/20 08:00 99.1 113 27 157/74 (101) 93 08/04/20 08:00 27 Mechanical Ventilator 90 08/04/20 08:00 109 08/04/20 07:15 117 24 90 08/04/20 07:00 27 Mechanical Ventilator 90 08/04/20 07:00 111 27 157/78 (104) 90 Intake and Output 08/04/20 08/05/20 19:00 07:00 Intake Total 2226 ml 1341.2 ml Output Total 1610 ml 370 ml Balance 616 ml 971.2 ml Free Water 90 ml 60 ml IV Total 1716 ml 896.2 ml Tube Feeding 420 ml 385 ml Output Urine Total 1610 ml 370 ml Laboratory Tests Test 08/04/20 08:50 08/04/20 23:09 08/05/20 03:40 Lactic Acid Level 2.60 mmol/L (0.4-2.0) H Pending Arterial Blood pH 7.231 (7.350-7.450) Arterial Blood Partial Pressure CO2 64.7 mmHg (35.0-45.0) *H Arterial Blood Partial Pressure O2 73.5 mmHg (75.0-100.0) L Arterial Blood HCO3 26.5 mmol/L (22.0-26.0) H Arterial Blood Oxygen Saturation 93.4 % (95-100) L Arterial Blood Base Excess -2.3 (-2-2) L Mehdi Test Positive White Blood Count 20.0 K/UL (4.8-10.8) H Red Blood Count 3.86 M/UL (4.70-6.10) L Hemoglobin 12.9 G/DL (14.2-18.0) L Hematocrit 39.7 % (42.0-52.0) L Mean Corpuscular Volume 103 FL (80-99) H Mean Corpuscular Hemoglobin 33.3 PG (27.0-31.0) H Mean Corpuscular Hemoglobin Concent 32.4 G/DL (32.0-36.0) Red Cell Distribution Width 13.2 % (11.6-14.8) Platelet Count 98 K/UL (150-450) L Mean Platelet Volume 7.4 FL (6.5-10.1) Neutrophils (%) (Auto) % (45.0-75.0) Lymphocytes (%) (Auto) % (20.0-45.0) Monocytes (%) (Auto) % (1.0-10.0) Eosinophils (%) (Auto) % (0.0-3.0) Basophils (%) (Auto) % (0.0-2.0) Neutrophils % (Manual) Pending Lymphocytes % (Manual) Pending Platelet Estimate Pending Platelet Morphology Pending Sodium Level Pending Potassium Level Pending Chloride Level Pending Carbon Dioxide Level Pending Blood Urea Nitrogen Pending Creatinine Pending Estimat Glomerular Filtration Rate Pending Glucose Level Pending Uric Acid Pending Calcium Level Pending Phosphorus Level Pending Magnesium Level Pending Total Bilirubin Pending Direct Bilirubin Pending Gamma Glutamyl Transpeptidase Pending Aspartate Amino Transf (AST/SGOT) Pending Alanine Aminotransferase (ALT/SGPT) Pending Alkaline Phosphatase Pending Lactate Dehydrogenase Pending Total Creatine Kinase Pending C-Reactive Protein, Quantitative Pending Pro-B-Type Natriuretic Peptide Pending Total Protein Pending Albumin Pending Globulin Pending Vitamin D 25-Hydroxy Pending 25-Hydroxy Vitamin D2 Pending 25-Hydroxy Vitamin D3 Pending Height (Feet): 5 Height (Inches): 5.00 Weight (Pounds): 160 Medications Current Medications Medications (Trade) Dose Ordered Sig/Fabiano Route PRN Reason Start Time Stop Time Status Last Admin Dose Admin Acetaminophen (Tylenol) 650 mg Q4H PRN NG Temp >100.5 08/03/20 04:15 09/02/20 04:14 08/03/20 04:26 Acetaminophen (Tylenol) 650 mg Q4H PRN RECTAL Temp >100.5 08/01/20 20:30 08/31/20 20:29 08/02/20 10:28 Albuterol Sulfate (Proventil MDI) 2 puff Q4H PRN INH Shortness of Breath 07/29/20 22:45 10/27/20 22:44 Cetylpyridinium Chloride (Cepacol) 1 lozg Q2H PRN [place] For Cough 07/30/20 21:00 10/28/20 20:59 08/01/20 08:47 Clonidine HCl (Catapres Tab) 0.1 mg Q2H PRN ORAL SBP > 170mmHg 08/04/20 09:45 11/02/20 09:44 Dextrose/Sodium Chloride 1,000 ml @ 100 mls/hr Q10H IV 08/02/20 08:30 09/01/20 08:29 08/05/20 00:17 Diltiazem HCl (Cardizem Tab) 30 mg EVERY 8 HOURS ORAL 08/04/20 14:00 09/03/20 13:59 08/05/20 05:06 Enoxaparin Sodium (Lovenox) 30 mg DAILY SUBQ 08/02/20 10:00 10/31/20 09:59 Guaifenesin/ Dextromethorphan (Robitussin DM Syrup) 15 ml Q6H PRN ORAL For Cough 07/31/20 08:30 10/29/20 08:29 08/01/20 08:47 Methylprednisolone Sodium Succinate (Solu-MEDROL) 40 mg EVERY 12 HOURS IVP 08/04/20 12:30 11/02/20 12:29 08/04/20 21:50 Midazolam HCl 100 mg/Sodium Chloride 200 ml @ 0 mls/hr Q24H PRN IV Restlessness 08/04/20 00:00 08/06/20 00:00 08/05/20 03:05 Morphine Sulfate (Morphine Sulfate) 4 mg Q4H PRN IVP Severe Pain (Pain Scale 7-10) 07/30/20 04:45 08/06/20 04:44 08/01/20 18:16 Pantoprazole (Protonix) 40 mg EVERY 12 HOURS IVP 08/02/20 21:00 09/01/20 20:59 08/04/20 21:50 Assessment/Plan Assessment/Plan: Hematology Consultation GARRY LOCO: Robert Guzman RFC: ANemia eval DOS: 08/05/20 HPI: 64-year-old male no reported past medical history presents with shortness of breath and hypoxemia. Patient apparently cough and shortness of breath for the past 10 days. He has positive sick contacts at home and his son with COVID-19. He states he has had a negative COVID-19 test however his room air oxygen level was in the 70s today. Also complains of some generalized weakness. No nausea vomiting diarrhea. Now s/p vent, no bleeding, labs reviewed, labs noted, h/h reviewed. 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 Patient History Reviewed Nursing Documentation: PMH: Agreed; PSxH: Agreed Nursing Documentation-PMH Past Medical History: No Stated History Review of Systems All Other Systems: negative except mentioned in HPI Physical Exam Vital Signs Vitals: reviewed, abnormal General Appearance: well appearing, mild distress HEENT: hearing grossly normal, moist mucus membranes Neck: full range of motion, supple Respiratory: ++vent Cardiovascular: normal peripheral pulses, regular rate, rhythm, no murmur Gastrointestinal: non tender, soft, non-distended, no guarding Neurologic: alert, oriented x3, no focal defects Skin: normal color, warm/dry Labs: reviewed Imaging: reviewed Assessment and Recs # Leukocytosis with Acute respiratory failure with hypoxia/covid19++ --> wbc 27-->20 --> ABx --> steriods as well --> pulm and ID # Thrombocytopenia is likely related to covid19 --> plt 83 --> trend as needed --> transfuse prn --> hep and hiv pending # Respiratory Failure --> intubated 08/01/20 --> oxygenating better --> Continue PEEP 12; now decreased to 5 # Hyponatremia --> per primary MD # Hyperglycemia --> BG control # Pneumonia --> abx per ID --> on dexamethasone (07/30-) --> now on remdesivir per ID (08/01-) # Covid19 with Elevated inflammatory markers; ferritin, D-Dimer --> On Lovenox # Dvt ppx lovenox sq Appreciate consultation and dw Robin Dee MD Aug 05, 2020 06:45
[2020-08-05 07:05] LABS: ALBUMIN 2.3 G/DL (3.4-5.0); ALBUMIN/GLOBULIN RATIO 0.6 (1.0-2.7); BILIRUBIN,DIRECT 0.2 MG/DL (0.0-0.3); BILIRUBIN,TOTAL 0.6 MG/DL (0.2-1.0); CALCIUM 7.4 MG/DL (8.5-10.1); CREATININE 2.1 MG/DL (0.55-1.30)
--- NOTE | 2020-08-05 07:12 | NUR ---
NURSE HAND-OFF REPORT: Latest Vital Signs: Temperature 99.9 , Pulse 113 , B/P 155 /85 , Respiratory Rate 25 , O2 SAT 94 , Mechanical Ventilator, O2 Flow Rate . Vital Sign Comment: WNL EKG Rhythm: Sinus Tachycardia Rhythm change?: N Notified?: Moi Guzman MD Response: Latest Orozco Fall Score: 50 Fall Risk: High Risk Safety Measures: Call light Within Reach, Bed Alarm Zone 1, Side Rails Side Rails x2, Bed position Low and Locked. Fall Precautions: Yellow Socks Yellow Gown Door Sign Patient Fall Education Report given to CARLOS Narayanan.
[2020-08-05 07:14] LABS: CREATINE KINASE 133 U/L (26-308); GAMMA GLUTAMYL TRANSPEPTIDASE 219 U/L (5-85); LACTATE DEHYDROGENASE 877 U/L (81-234); PHOSPHORUS 3.3 MG/DL (2.5-4.9)
--- NOTE | 2020-08-05 07:30 | NUR ---
NURSE NOTES: LATE ENTRY: RECEIVED REPORT FROM CARLOS FRANCE. PT IN BED SEDATED. PUPILS 2MM SLUGGISH. RESPONSIVE TO SHAKING. VS: 113, 156/58, 93%, 25. AX TEMP 99. PT INTUBATED . ET TUBE 7.5, 24CM AT LIP. SECRETIONS PINK. LUNG SOUNDS DIMINISHED. ABDOMEN ROUND. BOWEL SOUNDS ACTIVE. NO BM AT THIS TIME. OGT, CONNECTED TO FEEDING NEPRO AT 35ML/HR. RESIDUAL 20ML. MED FLUSH GIVEN 15ML. REGALADO CATH DRAINING STRAW URINE. EDEMA UPPER EXTREMITIES NOTED. BILATERAL SOFT WRIST RESTRAINTS ON. RADIAL PULSES PRESENT. AIR[place]NE AND FALL PRECAUTIONS IN PLACE. IV LT AC 20G, LT FA 20G. VERSED AT 9MG/HR. D5 1/2 NS 100ML/HR. SIDE RAILS X2. HOB 30. BED ALARM ON. WILL CONTINUE TO MONITOR PT.
[2020-08-05] MEDS: Pantoprazole Inj IVP SCH ×2 (08:26→21:21)
[2020-08-05] MEDS: Solu-MEDROL 40mg Inj IVP SCH ×2 (08:26→21:21)
[2020-08-05] MEDS: Enoxaparin 30mg Inj SUBQ SCH (08:27)
--- NOTE | 2020-08-05 08:40 | General Progress Note ---
Subjective ROS Limited/Unobtainable: No Allergies: Coded Allergies: No Known Allergies (Unverified , 07/29/20) Objective Last 24 Hour Vital Signs Date Time Temp Pulse Resp B/P (MAP) Pulse Ox O2 Delivery O2 Flow Rate FiO2 08/05/20 08:00 115 26 165/88 (113) 94 08/05/20 07:00 113 25 155/85 (108) 94 08/05/20 06:00 112 22 157/85 (109) 93 08/05/20 06:00 23 100 08/05/20 05:06 117 167/88 08/05/20 05:00 115 25 163/94 (117) 95 08/05/20 05:00 21 Mechanical Ventilator 100 08/05/20 04:00 115 08/05/20 04:00 Mechanical Ventilator 08/05/20 04:00 99.9 114 25 156/86 (109) 92 08/05/20 04:00 22 100 08/05/20 03:14 115 27 100 08/05/20 03:05 23 Mechanical Ventilator 100 08/05/20 03:00 113 22 159/85 (109) 94 08/05/20 02:00 114 23 153/88 (109) 91 08/05/20 01:00 113 20 161/82 (108) 91 08/05/20 00:00 100 08/05/20 00:00 Mechanical Ventilator 08/05/20 00:00 110 08/05/20 00:00 99.1 109 22 147/82 (103) 92 08/04/20 23:00 112 24 154/84 (107) 92 08/04/20 23:00 24 Mechanical Ventilator 100 08/04/20 22:43 121 26 100 08/04/20 22:00 118 27 163/87 (112) 91 08/04/20 22:00 24 Mechanical Ventilator 100 08/04/20 21:52 114 153/87 08/04/20 21:00 116 25 153/87 (109) 91 08/04/20 21:00 27 Mechanical Ventilator 100 08/04/20 20:00 Mechanical Ventilator 08/04/20 20:00 99.5 115 26 157/87 (110) 90 08/04/20 20:00 24 Mechanical Ventilator 100 08/04/20 20:00 113 08/04/20 20:00 100 08/04/20 19:00 26 Mechanical Ventilator 100.0 100 08/04/20 19:00 115 27 100 08/04/20 19:00 116 25 161/82 (108) 90 08/04/20 18:00 115 26 164/85 (111) 91 08/04/20 18:00 27 Mechanical Ventilator 100 08/04/20 17:00 27 Mechanical Ventilator 100 08/04/20 17:00 107 25 154/82 (106) 91 08/04/20 16:29 27 100 08/04/20 16:00 Mechanical Ventilator 08/04/20 16:00 113 08/04/20 16:00 27 Mechanical Ventilator 100 08/04/20 16:00 98.9 114 27 166/85 (112) 90 08/04/20 16:00 100 08/04/20 15:20 109 27 90 08/04/20 15:00 25 Mechanical Ventilator 100 08/04/20 15:00 107 25 154/82 (106) 91 08/04/20 14:00 24 100 08/04/20 14:00 104 24 144/73 (96) 91 08/04/20 13:03 113 157/75 08/04/20 13:00 112 29 158/78 (104) 92 08/04/20 13:00 29 Mechanical Ventilator 100 08/04/20 12:00 Mechanical Ventilator 08/04/20 12:00 104 08/04/20 12:00 100 08/04/20 12:00 98.6 112 26 157/78 (104) 93 08/04/20 12:00 26 Mechanical Ventilator 100 08/04/20 11:30 100 08/04/20 11:20 113 26 90 08/04/20 11:00 27 Mechanical Ventilator 90 08/04/20 11:00 113 28 157/75 (102) 90 08/04/20 10:00 114 27 154/77 (102) 90 08/04/20 10:00 27 Mechanical Ventilator 90 08/04/20 09:00 115 27 157/74 (101) 90 08/04/20 09:00 27 Mechanical Ventilator 90 Intake and Output 08/04/20 08/05/20 19:00 07:00 Intake Total 2226 ml 1376.2 ml Output Total 1610 ml 405 ml Balance 616 ml 971.2 ml Free Water 90 ml 60 ml IV Total 1716 ml 896.2 ml Tube Feeding 420 ml 420 ml Output Urine Total 1610 ml 405 ml Laboratory Tests 08/04/20 08:50: Lactic Acid Level 2.60H 08/04/20 23:09: Arterial Blood pH 7.231*L, Arterial Blood Partial Pressure CO2 64.7*H, Arterial Blood Partial Pressure O2 73.5L, Arterial Blood HCO3 26.5H, Arterial Blood Oxygen Saturation 93.4L, Arterial Blood Base Excess -2.3L, Mehdi Test Positive 08/05/20 03:40: Lactic Acid Level 2.80H, White Blood Count 20.0H, Red Blood Count 3.86L, Hemoglobin 12.9L, Hematocrit 39.7L, Mean Corpuscular Volume 103H, Mean Corpuscular Hemoglobin 33.3H, Mean Corpuscular Hemoglobin Concent 32.4, Red Cell Distribution Width 13.2, Platelet Count 98L, Mean Platelet Volume 7.4, Neutrophils (%) (Auto) , Lymphocytes (%) (Auto) , Monocytes (%) (Auto) , Eosinophils (%) (Auto) , Basophils (%) (Auto) , Neutrophils % (Manual) [Pending], Lymphocytes % (Manual) [Pending], Platelet Estimate [Pending], Platelet Morphology [Pending], Sodium Level 149H, Potassium Level 5.0, Chloride Level 115H, Carbon Dioxide Level 30, Anion Gap 4L, Blood Urea Nitrogen 64H, Cr eatinine 2.1H, Estimat Glomerular Filtration Rate 31.9, Glucose Level 245#H, Uric Acid 4.7, Calcium Level 7.4L, Phosphorus Level 3.3, Magnesium Level 3.7H, Total Bilirubin 0.6, Direct Bilirubin 0.2, Gamma Glutamyl Transpeptidase 219H, Aspartate Amino Transf (AST/SGOT) 436H, Alanine Aminotransferase (ALT/SGPT) 1488H, Alkaline Phosphatase 235H, Lactate Dehydrogenase 877H, Total Creatine Kinase 133, C-Reactive Protein, Quantitative 3.5H, Pro-B-Type Natriuretic Peptide 5656H, Total Protein 5.9L, Albumin 2.3L, Globulin 3.6, Albumin/Globulin Ratio 0.6L, Vitamin D 25-Hydroxy [Pending], 25-Hydroxy Vitamin D2 [Pending], 25- Hydroxy Vitamin D3 [Pending], Hepatitis A IgM Antibody [Pending], Hepatitis B Surface Antigen [Pending], Hepatitis B Core IgM Antibody [Pending], Hepatitis C Antibody [Pending], HIV (1&2) Antibody Rapid [Pending] Height (Feet): 5 Height (Inches): 5.00 Weight (Pounds): 160 General Appearance: no apparent distress EENT: normal ENT inspection Neck: supple Cardiovascular: tachycardia Respiratory/Chest: decreased breath sounds Abdomen: hypoactive bowel sounds Extremities: non-tender Assessment/Plan Problem List: (1) Hypoxia ICD Codes: R09.02 - Hypoxemia SNOMED: 136135089 (2) Bilateral pneumonia ICD Codes: J18.9 - Pneumonia, unspecified organism SNOMED: 960640832, 543723326 (3) Acute respiratory failure with hypoxia ICD Codes: J96.01 - Acute respiratory failure with hypoxia SNOMED: 45763130, 995768259 (4) Bradycardia ICD Codes: R00.1 - Bradycardia, unspecified SNOMED: 08755093 (5) Malnutrition ICD Codes: E46 - Unspecified protein-calorie malnutrition SNOMED: 60451475 (6) Shock liver ICD Codes: K72.00 - Acute and subacute hepatic failure without coma SNOMED: 488959035 (7) ERIKA (acute kidney injury) ICD Codes: N17.9 - Acute kidney failure, unspecified SNOMED: 7773016, 41241500 Status: unchanged Assessment/Plan: NGTF covid care fu labs abx per ID shock liver>>>fu LFTS will fu Enoch Varner MD Aug 05, 2020 08:40
--- NOTE | 2020-08-05 09:09 | NUR ---
NURSE NOTES: D/C LT AC IVMAUREEN. PLACED NEW 22G RT WRIST. PATENT. Addendum: 08/05/20 at 1411 by Lady Moss RN NURSE NOTES: MD. CHEN HERE TO SEE PT. WAS INFORMED HX DM. FLUID D51/2 NS. WILL CHANGE TO 1/2 NS.BUN/CRE 64/2.1
--- NOTE | 2020-08-05 09:30 | Infectious Diseases Prog Note ---
Assessment/Plan Assessment/Plan A; Pneumonia,with COVID19 disease Leukocytosis worsening Acute renal failure Hyperkalemia Hypoxemia Lactic acidosis Elevated transaminase PLAN: 1. Sputum culture 2. Continue dexamethasone 3. Continue isolation. Subjective ROS Limited/Unobtainable: Yes Constitutional: Denies: fever Neurologic: Reports: other - sedated on restraint Allergies: Coded Allergies: No Known Allergies (Unverified , 07/29/20) Objective Last 24 Hour Vital Signs Date Time Temp Pulse Resp B/P (MAP) Pulse Ox O2 Delivery O2 Flow Rate FiO2 08/05/20 08:00 115 26 165/88 (113) 94 08/05/20 07:00 113 25 155/85 (108) 94 08/05/20 06:00 112 22 157/85 (109) 93 08/05/20 06:00 23 100 08/05/20 05:06 117 167/88 08/05/20 05:00 115 25 163/94 (117) 95 08/05/20 05:00 21 Mechanical Ventilator 100 08/05/20 04:00 115 08/05/20 04:00 Mechanical Ventilator 08/05/20 04:00 99.9 114 25 156/86 (109) 92 08/05/20 04:00 22 100 08/05/20 03:14 115 27 100 08/05/20 03:05 23 Mechanical Ventilator 100 08/05/20 03:00 113 22 159/85 (109) 94 08/05/20 02:00 114 23 153/88 (109) 91 08/05/20 01:00 113 20 161/82 (108) 91 08/05/20 00:00 100 08/05/20 00:00 Mechanical Ventilator 08/05/20 00:00 110 08/05/20 00:00 99.1 109 22 147/82 (103) 92 08/04/20 23:00 112 24 154/84 (107) 92 08/04/20 23:00 24 Mechanical Ventilator 100 08/04/20 22:43 121 26 100 08/04/20 22:00 118 27 163/87 (112) 91 08/04/20 22:00 24 Mechanical Ventilator 100 08/04/20 21:52 114 153/87 08/04/20 21:00 116 25 153/87 (109) 91 08/04/20 21:00 27 Mechanical Ventilator 100 08/04/20 20:00 Mechanical Ventilator 08/04/20 20:00 99.5 115 26 157/87 (110) 90 08/04/20 20:00 24 Mechanical Ventilator 100 08/04/20 20:00 113 08/04/20 20:00 100 08/04/20 19:00 26 Mechanical Ventilator 100.0 100 08/04/20 19:00 115 27 100 08/04/20 19:00 116 25 161/82 (108) 90 08/04/20 18:00 115 26 164/85 (111) 91 08/04/20 18:00 27 Mechanical Ventilator 100 08/04/20 17:00 27 Mechanical Ventilator 100 08/04/20 17:00 107 25 154/82 (106) 91 08/04/20 16:29 27 100 08/04/20 16:00 Mechanical Ventilator 08/04/20 16:00 113 08/04/20 16:00 27 Mechanical Ventilator 100 08/04/20 16:00 98.9 114 27 166/85 (112) 90 08/04/20 16:00 100 08/04/20 15:20 109 27 90 08/04/20 15:00 25 Mechanical Ventilator 100 08/04/20 15:00 107 25 154/82 (106) 91 08/04/20 14:00 24 100 08/04/20 14:00 104 24 144/73 (96) 91 08/04/20 13:03 113 157/75 08/04/20 13:00 112 29 158/78 (104) 92 08/04/20 13:00 29 Mechanical Ventilator 100 08/04/20 12:00 Mechanical Ventilator 08/04/20 12:00 104 08/04/20 12:00 100 08/04/20 12:00 98.6 112 26 157/78 (104) 93 08/04/20 12:00 26 Mechanical Ventilator 100 08/04/20 11:30 100 08/04/20 11:20 113 26 90 08/04/20 11:00 27 Mechanical Ventilator 90 08/04/20 11:00 113 28 157/75 (102) 90 08/04/20 10:00 114 27 154/77 (102) 90 08/04/20 10:00 27 Mechanical Ventilator 90 Height (Feet): 5 Height (Inches): 5.00 Weight (Pounds): 160 HEENT: other - orally intubated Respiratory/Chest: other - on ventilator, FGW4=742% Cardiovascular: tachycardia Abdomen: soft, non tender, other - OG tube Extremities: other - R hand edema Neurologic/Psychiatric: other - sedated Laboratory Tests Test 08/04/20 23:09 08/05/20 03:40 Arterial Blood pH 7.231 (7.350-7.450) Arterial Blood Partial Pressure CO2 64.7 mmHg (35.0-45.0) *H Arterial Blood Partial Pressure O2 73.5 mmHg (75.0-100.0) L Arterial Blood HCO3 26.5 mmol/L (22.0-26.0) H Arterial Blood Oxygen Saturation 93.4 % (95-100) L Arterial Blood Base Excess -2.3 (-2-2) L Mehdi Test Positive White Blood Count 20.0 K/UL (4.8-10.8) H Red Blood Count 3.86 M/UL (4.70-6.10) L Hemoglobin 12.9 G/DL (14.2-18.0) L Hematocrit 39.7 % (42.0-52.0) L Mean Corpuscular Volume 103 FL (80-99) H Mean Corpuscular Hemoglobin 33.3 PG (27.0-31.0) H Mean Corpuscular Hemoglobin Concent 32.4 G/DL (32.0-36.0) Red Cell Distribution Width 13.2 % (11.6-14.8) Platelet Count 98 K/UL (150-450) L Mean Platelet Volume 7.4 FL (6.5-10.1) Neutrophils (%) (Auto) % (45.0-75.0) Lymphocytes (%) (Auto) % (20.0-45.0) Monocytes (%) (Auto) % (1.0-10.0) Eosinophils (%) (Auto) % (0.0-3.0) Basophils (%) (Auto) % (0.0-2.0) Neutrophils % (Manual) Pending Lymphocytes % (Manual) Pending Platelet Estimate Pending Platelet Morphology Pending Sodium Level 149 MMOL/L (136-145) H Potassium Level 5.0 MMOL/L (3.5-5.1) Chloride Level 115 MMOL/L (98-107) H Carbon Dioxide Level 30 MMOL/L (21-32) Anion Gap 4 mmol/L (5-15) L Blood Urea Nitrogen 64 mg/dL (7-18) H Creatinine 2.1 MG/DL (0.55-1.30) H Estimat Glomerular Filtration Rate 31.9 mL/min (>60) Glucose Level 245 MG/DL (74-106) #H Lactic Acid Level 2.80 mmol/L (0.4-2.0) H Uric Acid 4.7 MG/DL (2.6-7.2) Calcium Level 7.4 MG/DL (8.5-10.1) L Phosphorus Level 3.3 MG/DL (2.5-4.9) Magnesium Level 3.7 MG/DL (1.8-2.4) H Total Bilirubin 0.6 MG/DL (0.2-1.0) Direct Bilirubin 0.2 MG/DL (0.0-0.3) Gamma Glutamyl Transpeptidase 219 U/L (5-85) H Aspartate Amino Transf (AST/SGOT) 436 U/L (15-37) H Alanine Aminotransferase (ALT/SGPT) 1488 U/L (12-78) H Alkaline Phosphatase 235 U/L (46-116) H Lactate Dehydrogenase 877 U/L (81-234) H Total Creatine Kinase 133 U/L (26-308) C-Reactive Protein, Quantitative 3.5 mg/dL (0.00-0.90) H Pro-B-Type Natriuretic Peptide 5656 pg/mL (0-125) H Total Protein 5.9 G/DL (6.4-8.2) L Albumin 2.3 G/DL (3.4-5.0) L Globulin 3.6 g/dL Albumin/Globulin Ratio 0.6 (1.0-2.7) L Vitamin D 25-Hydroxy Pending 25-Hydroxy Vitamin D2 Pending 25-Hydroxy Vitamin D3 Pending Hepatitis A IgM Antibody Pending Hepatitis B Surface Antigen Pending Hepatitis B Core IgM Antibody Pending Hepatitis C Antibody Pending HIV (1&2) Antibody Rapid Pending Current Medications Medications (Trade) Dose Ordered Sig/Fabiano Route PRN Reason Start Time Stop Time Status Last Admin Dose Admin Acetaminophen (Tylenol) 650 mg Q4H PRN NG Temp >100.5 08/03/20 04:15 09/02/20 04:14 08/03/20 04:26 Acetaminophen (Tylenol) 650 mg Q4H PRN RECTAL Temp >100.5 08/01/20 20:30 08/31/20 20:29 08/02/20 10:28 Albuterol Sulfate (Proventil MDI) 2 puff Q4H PRN INH Shortness of Breath 07/29/20 22:45 10/27/20 22:44 Cetylpyridinium Chloride (Cepacol) 1 lozg Q2H PRN [place] For Cough 07/30/20 21:00 10/28/20 20:59 08/01/20 08:47 Clonidine HCl (Catapres Tab) 0.1 mg Q2H PRN ORAL SBP > 170mmHg 08/04/20 09:45 11/02/20 09:44 Diltiazem HCl (Cardizem Tab) 30 mg EVERY 8 HOURS ORAL 08/04/20 14:00 09/03/20 13:59 08/05/20 05:06 Enoxaparin Sodium (Lovenox) 30 mg DAILY SUBQ 08/02/20 10:00 10/31/20 09:59 08/05/20 08:27 Guaifenesin/ Dextromethorphan (Robitussin DM Syrup) 15 ml Q6H PRN ORAL For Cough 07/31/20 08:30 10/29/20 08:29 08/01/20 08:47 Methylprednisolone Sodium Succinate (Solu-MEDROL) 40 mg EVERY 12 HOURS IVP 08/04/20 12:30 11/02/20 12:29 08/05/20 08:26 Midazolam HCl 100 mg/Sodium Chloride 200 ml @ 0 mls/hr Q24H PRN IV Restlessness 08/04/20 00:00 08/06/20 00:00 08/05/20 03:05 Morphine Sulfate (Morphine Sulfate) 4 mg Q4H PRN IVP Severe Pain (Pain Scale 7-10) 07/30/20 04:45 08/06/20 04:44 08/01/20 18:16 Pantoprazole (Protonix) 40 mg EVERY 12 HOURS IVP 08/02/20 21:00 09/01/20 20:59 08/05/20 08:26 Sodium Chloride 1,000 ml @ 100 mls/hr Q10H IV 08/05/20 08:45 09/04/20 08:44 Jose Antonio Klein MD Aug 05, 2020 09:30
--- NOTE | 2020-08-05 09:55 | Nephrology Progress Note ---
Assessment/Plan Problem List: (1) ERIKA (acute kidney injury) (2) Shock liver (3) Acute respiratory failure with hypoxia (4) Bilateral pneumonia Assessment Acute renal failure. Most likely due to hypotensive and shock from 8 PM last night to 5 AM this morning. Hyperkalemia. Acute hypoxic respiratory failure. Pneumonia with COVID-19. Elevated transaminase, most likely shock liver. Plan August 05: Labs reviewed. Renal parameters improving. LFTs gradually improving. IV changed to half-normal saline. Continue to monitor blood sugar. Continue to monitor renal parameters. Patient full code. Cardizem dose increased. August 04: Renal parameters improving. LFTs remain elevated. Hemodynamically stable. Continue to monitor renal parameters. Continue per consultants. Discussed with CARLOS Greene. August 03: Patient intubated on ventilator. Renal parameters worsening. LFTs elevated. Patient is deteriorating. Will consider dialysis treatment if no reversal of kidney failure. Discussed with CARLOS Alexis. Previously: Albumin bolus Increase IV fluid Kayexalate for high potassium Monitor renal parameters Subjective ROS Limited/Unobtainable: Yes Objective Objective Last 24 Hour Vital Signs Date Time Temp Pulse Resp B/P (MAP) Pulse Ox O2 Delivery O2 Flow Rate FiO2 08/05/20 08:00 115 26 165/88 (113) 94 08/05/20 07:59 116 25 100 08/05/20 07:00 113 25 155/85 (108) 94 08/05/20 06:00 112 22 157/85 (109) 93 08/05/20 06:00 23 100 08/05/20 05:06 117 167/88 08/05/20 05:00 115 25 163/94 (117) 95 08/05/20 05:00 21 Mechanical Ventilator 100 08/05/20 04:00 115 08/05/20 04:00 Mechanical Ventilator 08/05/20 04:00 99.9 114 25 156/86 (109) 92 08/05/20 04:00 22 100 08/05/20 03:14 115 27 100 08/05/20 03:05 23 Mechanical Ventilator 100 08/05/20 03:00 113 22 159/85 (109) 94 08/05/20 02:00 114 23 153/88 (109) 91 08/05/20 01:00 113 20 161/82 (108) 91 08/05/20 00:00 100 08/05/20 00:00 Mechanical Ventilator 08/05/20 00:00 110 08/05/20 00:00 99.1 109 22 147/82 (103) 92 08/04/20 23:00 112 24 154/84 (107) 92 08/04/20 23:00 24 Mechanical Ventilator 100 08/04/20 22:43 121 26 100 08/04/20 22:00 118 27 163/87 (112) 91 08/04/20 22:00 24 Mechanical Ventilator 100 08/04/20 21:52 114 153/87 08/04/20 21:00 116 25 153/87 (109) 91 08/04/20 21:00 27 Mechanical Ventilator 100 08/04/20 20:00 Mechanical Ventilator 08/04/20 20:00 99.5 115 26 157/87 (110) 90 08/04/20 20:00 24 Mechanical Ventilator 100 08/04/20 20:00 113 08/04/20 20:00 100 08/04/20 19:00 26 Mechanical Ventilator 100.0 100 08/04/20 19:00 115 27 100 08/04/20 19:00 116 25 161/82 (108) 90 08/04/20 18:00 115 26 164/85 (111) 91 08/04/20 18:00 27 Mechanical Ventilator 100 08/04/20 17:00 27 Mechanical Ventilator 100 08/04/20 17:00 107 25 154/82 (106) 91 08/04/20 16:29 27 100 08/04/20 16:00 Mechanical Ventilator 08/04/20 16:00 113 08/04/20 16:00 27 Mechanical Ventilator 100 08/04/20 16:00 98.9 114 27 166/85 (112) 90 08/04/20 16:00 100 08/04/20 15:20 109 27 90 08/04/20 15:00 25 Mechanical Ventilator 100 08/04/20 15:00 107 25 154/82 (106) 91 08/04/20 14:00 24 100 08/04/20 14:00 104 24 144/73 (96) 91 08/04/20 13:03 113 157/75 08/04/20 13:00 112 29 158/78 (104) 92 08/04/20 13:00 29 Mechanical Ventilator 100 08/04/20 12:00 Mechanical Ventilator 08/04/20 12:00 104 08/04/20 12:00 100 08/04/20 12:00 98.6 112 26 157/78 (104) 93 08/04/20 12:00 26 Mechanical Ventilator 100 08/04/20 11:30 100 08/04/20 11:20 113 26 90 08/04/20 11:00 27 Mechanical Ventilator 90 08/04/20 11:00 113 28 157/75 (102) 90 08/04/20 10:00 114 27 154/77 (102) 90 08/04/20 10:00 27 Mechanical Ventilator 90 Intake and Output 08/04/20 08/05/20 19:00 07:00 Intake Total 2226 ml 1376.2 ml Output Total 1610 ml 405 ml Balance 616 ml 971.2 ml Free Water 90 ml 60 ml IV Total 1716 ml 896.2 ml Tube Feeding 420 ml 420 ml Output Urine Total 1610 ml 405 ml Current Medications Medications (Trade) Dose Ordered Sig/Fabiano Route PRN Reason Start Time Stop Time Status Last Admin Dose Admin Acetaminophen (Tylenol) 650 mg Q4H PRN NG Temp >100.5 08/03/20 04:15 09/02/20 04:14 08/03/20 04:26 Acetaminophen (Tylenol) 650 mg Q4H PRN RECTAL Temp >100.5 08/01/20 20:30 08/31/20 20:29 08/02/20 10:28 Albuterol Sulfate (Proventil MDI) 2 puff Q4H PRN INH Shortness of Breath 07/29/20 22:45 10/27/20 22:44 Cetylpyridinium Chloride (Cepacol) 1 lozg Q2H PRN [place] For Cough 07/30/20 21:00 10/28/20 20:59 08/01/20 08:47 Clonidine HCl (Catapres Tab) 0.1 mg Q2H PRN ORAL SBP > 170mmHg 08/04/20 09:45 11/02/20 09:44 Diltiazem HCl (Cardizem Tab) 30 mg EVERY 8 HOURS ORAL 08/04/20 14:00 09/03/20 13:59 08/05/20 05:06 Enoxaparin Sodium (Lovenox) 30 mg DAILY SUBQ 08/02/20 10:00 10/31/20 09:59 08/05/20 08:27 Guaifenesin/ Dextromethorphan (Robitussin DM Syrup) 15 ml Q6H PRN ORAL For Cough 07/31/20 08:30 10/29/20 08:29 08/01/20 08:47 Methylprednisolone Sodium Succinate (Solu-MEDROL) 40 mg EVERY 12 HOURS IVP 08/04/20 12:30 11/02/20 12:29 08/05/20 08:26 Midazolam HCl 100 mg/Sodium Chloride 200 ml @ 0 mls/hr Q24H PRN IV Restlessness 08/04/20 00:00 08/06/20 00:00 08/05/20 03:05 Morphine Sulfate (Morphine Sulfate) 4 mg Q4H PRN IVP Severe Pain (Pain Scale 7-10) 07/30/20 04:45 08/06/20 04:44 08/01/20 18:16 Pantoprazole (Protonix) 40 mg EVERY 12 HOURS IVP 08/02/20 21:00 09/01/20 20:59 08/05/20 08:26 Sodium Chloride 1,000 ml @ 100 mls/hr Q10H IV 08/05/20 08:45 09/04/20 08:44 Laboratory Tests 08/04/20 23:09: Arterial Blood pH 7.231*L, Arterial Blood Partial Pressure CO2 64.7*H, Arterial Blood Partial Pressure O2 73.5L, Arterial Blood HCO3 26.5H, Arterial Blood Oxygen Saturation 93.4L, Arterial Blood Base Excess -2.3L, Mehdi Test Positive 08/05/20 03:40: White Blood Count 20.0H, Red Blood Count 3.86L, Hemoglobin 12.9L, Hematocrit 39.7L, Mean Corpuscular Volume 103H, Mean Corpuscular Hemoglobin 33.3H, Mean Corpuscular Hemoglobin Concent 32.4, Red Cell Distribution Width 13.2, Platelet Count 98L, Mean Platelet Volume 7.4, Neutrophils (%) (Auto) , Lymphocytes (%) (Auto) , Monocytes (%) (Auto) , Eosinophils (%) (Auto) , Basophils (%) (Auto) , Neutrophils % (Manual) [Pending], Lymphocytes % (Manual) [Pending], Platelet Estimate [Pending], Platelet Morphology [Pending], Sodium Level 149H, Potassium Level 5.0, Chloride Level 115H, Carbon Dioxide Level 30, Anion Gap 4L, Blood Urea Nitrogen 64H, Creatinine 2.1H, Estimat Glomerular Filtration Rate 31.9, Glucose Level 245#H, Lactic Acid Level 2.80H, Uric Acid 4.7, Calcium Level 7.4L, Phosphorus Level 3.3, Magnesium Level 3.7H, Total Bilirubin 0.6, Direct Bili [place] 0.2, Gamma Glutamyl Transpeptidase 219H, Aspartate Amino Transf (AST/SGOT) 436H, Alanine Aminotransferase (ALT/SGPT) 1488H, Alkaline Phosphatase 235H, Lactate Dehydrogenase 877H, Total Creatine Kinase 133, C-Reactive Protein, Quantitative 3.5H, Pro-B-Type Natriuretic Peptide 5656H, Total Protein 5.9L, Albumin 2.3L, Globulin 3.6, Albumin/Globulin Ratio 0.6L, Vitamin D 25-Hydroxy [Pending], 25-Hydroxy Vitamin D2 [Pending], 25-Hydroxy Vitamin D3 [Pending], Hepatitis A IgM Antibody [Pending], Hepatitis B Surface Antigen [Pending], Hepatitis B Core IgM Antibody [Pending], Hepatitis C Antibody [Pending], HIV (1&2) Antibody Rapid [Pending] Height (Feet): 5 Height (Inches): 5.00 Weight (Pounds): 160 General Appearance: no apparent distress EENT: other - Intubated on ventilator Cardiovascular: tachycardia Respiratory/Chest: decreased breath sounds Abdomen: distended Jared Everett MD Aug 05, 2020 09:55
--- NOTE | 2020-08-05 10:10 | NUR ---
NURSE NOTES: LATE ENTRY: MD VIERA HERE TO SEE PT. WAS INFORMED OF LABS TODAY. BUN/CRE: 15/0.4, H/H 7.8/24.4. NO BLEEDING NOTED. URINE OUTPUT WNL. NO BM NOTED. Addendum: 08/05/20 at 1917 by Lady Moss RN WRONG PT
--- NOTE | 2020-08-05 11:38 | Cardiac Electrophysiology PN ---
Assessment/Plan Assessment/Plan 1. Bradycardia off any sinus-galen or AV-galen blocking agents. Echocardiogram EF 60% 2. HTN and tachycardia. On Cardiem 60 tid 3. Respiratory failure due to Covid PNA intubated on 50% Fio2 and PEEP 5 4. Acute renal failure with CR 2.5 5. Shock Liver with AST and ALT >1100 6.Sepsis. White count 21,000 on IV antibiotic per Dr. Antonio. Subjective Subjective In ICU intubated on 100% Fio2 and PEP 5. Remdesevir DCed for renal failure and high LFTS. Has fever and thrombocytopenia. EF 60%. On Cardizem 60 tid Objective Last 24 Hour Vital Signs Date Time Temp Pulse Resp B/P (MAP) Pulse Ox O2 Delivery O2 Flow Rate FiO2 08/05/20 10:45 111 23 151/83 (105) 94 08/05/20 10:30 110 22 148/82 (104) 94 08/05/20 10:15 109 22 143/80 (101) 94 08/05/20 10:00 110 22 150/79 (102) 93 08/05/20 09:45 111 22 155/80 (105) 94 08/05/20 09:30 112 24 154/79 (104) 93 08/05/20 09:15 112 22 155/79 (104) 93 08/05/20 09:00 99.8 112 22 157/82 (107) 94 08/05/20 08:00 113 08/05/20 08:00 115 26 165/88 (113) 94 08/05/20 08:00 100 08/05/20 08:00 Mechanical Ventilator 08/05/20 07:59 116 25 100 08/05/20 07:00 113 25 155/85 (108) 94 08/05/20 06:00 112 22 157/85 (109) 93 08/05/20 06:00 23 100 08/05/20 05:06 117 167/88 08/05/20 05:00 115 25 163/94 (117) 95 08/05/20 05:00 21 Mechanical Ventilator 100 08/05/20 04:00 115 08/05/20 04:00 Mechanical Ventilator 08/05/20 04:00 99.9 114 25 156/86 (109) 92 08/05/20 04:00 22 100 08/05/20 03:14 115 27 100 08/05/20 03:05 23 Mechanical Ventilator 100 08/05/20 03:00 113 22 159/85 (109) 94 08/05/20 02:00 114 23 153/88 (109) 91 08/05/20 01:00 113 20 161/82 (108) 91 08/05/20 00:00 100 08/05/20 00:00 Mechanical Ventilator 08/05/20 00:00 110 08/05/20 00:00 99.1 109 22 147/82 (103) 92 08/04/20 23:00 112 24 154/84 (107) 92 08/04/20 23:00 24 Mechanical Ventilator 100 08/04/20 22:43 121 26 100 08/04/20 22:00 118 27 163/87 (112) 91 08/04/20 22:00 24 Mechanical Ventilator 100 08/04/20 21:52 114 153/87 08/04/20 21:00 116 25 153/87 (109) 91 08/04/20 21:00 27 Mechanical Ventilator 100 08/04/20 20:00 Mechanical Ventilator 08/04/20 20:00 99.5 115 26 157/87 (110) 90 08/04/20 20:00 24 Mechanical Ventilator 100 08/04/20 20:00 113 08/04/20 20:00 100 08/04/20 19:00 26 Mechanical Ventilator 100.0 100 08/04/20 19:00 115 27 100 08/04/20 19:00 116 25 161/82 (108) 90 08/04/20 18:00 115 26 164/85 (111) 91 08/04/20 18:00 27 Mechanical Ventilator 100 08/04/20 17:00 27 Mechanical Ventilator 100 08/04/20 17:00 107 25 154/82 (106) 91 08/04/20 16:29 27 100 08/04/20 16:00 Mechanical Ventilator 08/04/20 16:00 113 08/04/20 16:00 27 Mechanical Ventilator 100 08/04/20 16:00 98.9 114 27 166/85 (112) 90 08/04/20 16:00 100 08/04/20 15:20 109 27 90 08/04/20 15:00 25 Mechanical Ventilator 100 08/04/20 15:00 107 25 154/82 (106) 91 08/04/20 14:00 24 100 08/04/20 14:00 104 24 144/73 (96) 91 08/04/20 13:03 113 157/75 08/04/20 13:00 112 29 158/78 (104) 92 08/04/20 13:00 29 Mechanical Ventilator 100 08/04/20 12:00 Mechanical Ventilator 08/04/20 12:00 104 08/04/20 12:00 100 08/04/20 12:00 98.6 112 26 157/78 (104) 93 08/04/20 12:00 26 Mechanical Ventilator 100 Intake and Output 08/04/20 08/05/20 19:00 07:00 Intake Total 2226 ml 1376.2 ml Output Total 1610 ml 405 ml Balance 616 ml 971.2 ml Free Water 90 ml 60 ml IV Total 1716 ml 896.2 ml Tube Feeding 420 ml 420 ml Output Urine Total 1610 ml 405 ml Laboratory Tests Test 08/04/20 23:09 08/05/20 03:40 Arterial Blood pH 7.231 (7.350-7.450) Arterial Blood Partial Pressure CO2 64.7 mmHg (35.0-45.0) *H Arterial Blood Partial Pressure O2 73.5 mmHg (75.0-100.0) L Arterial Blood HCO3 26.5 mmol/L (22.0-26.0) H Arterial Blood Oxygen Saturation 93.4 % (95-100) L Arterial Blood Base Excess -2.3 (-2-2) L Mehdi Test Positive White Blood Count 20.0 K/UL (4.8-10.8) H Red Blood Count 3.86 M/UL (4.70-6.10) L Hemoglobin 12.9 G/DL (14.2-18.0) L Hematocrit 39.7 % (42.0-52.0) L Mean Corpuscular Volume 103 FL (80-99) H Mean Corpuscular Hemoglobin 33.3 PG (27.0-31.0) H Mean Corpuscular Hemoglobin Concent 32.4 G/DL (32.0-36.0) Red Cell Distribution Width 13.2 % (11.6-14.8) Platelet Count 98 K/UL (150-450) L Mean Platelet Volume 7.4 FL (6.5-10.1) Neutrophils (%) (Auto) % (45.0-75.0) Lymphocytes (%) (Auto) % (20.0-45.0) Monocytes (%) (Auto) % (1.0-10.0) Eosinophils (%) (Auto) % (0.0-3.0) Basophils (%) (Auto) % (0.0-2.0) Differential Total Cells Counted 100 Neutrophils % (Manual) 87 % (45-75) H Lymphocytes % (Manual) 4 % (20-45) L Monocytes % (Manual) 9 % (1-10) Eosinophils % (Manual) 0 % (0-3) Basophils % (Manual) 0 % (0-2) Band Neutrophils 0 % (0-8) Platelet Estimate Decreased L Platelet Morphology Normal Anisocytosis 1+ Sodium Level 149 MMOL/L (136-145) H Potassium Level 5.0 MMOL/L (3.5-5.1) Chloride Level 115 MMOL/L (98-107) H Carbon Dioxide Level 30 MMOL/L (21-32) Anion Gap 4 mmol/L (5-15) L Blood Urea Nitrogen 64 mg/dL (7-18) H Creatinine 2.1 MG/DL (0.55-1.30) H Estimat Glomerular Filtration Rate 31.9 mL/min (>60) Glucose Level 245 MG/DL (74-106) #H Lactic Acid Level 2.80 mmol/L (0.4-2.0) H Uric Acid 4.7 MG/DL (2.6-7.2) Calcium Level 7.4 MG/DL (8.5-10.1) L Phosphorus Level 3.3 MG/DL (2.5-4.9) Magnesium Level 3.7 MG/DL (1.8-2.4) H Total Bilirubin 0.6 MG/DL (0.2-1.0) Direct Bilirubin 0.2 MG/DL (0.0-0.3) Gamma Glutamyl Transpeptidase 219 U/L (5-85) H Aspartate Amino Transf (AST/SGOT) 436 U/L (15-37) H Alanine Aminotransferase (ALT/SGPT) 1488 U/L (12-78) H Alkaline Phosphatase 235 U/L (46-116) H Lactate Dehydrogenase 877 U/L (81-234) H Total Creatine Kinase 133 U/L (26-308) C-Reactive Protein, Quantitative 3.5 mg/dL (0.00-0.90) H Pro-B-Type Natriuretic Peptide 5656 pg/mL (0-125) H Total Protein 5.9 G/DL (6.4-8.2) L Albumin 2.3 G/DL (3.4-5.0) L Globulin 3.6 g/dL Albumin/Globulin Ratio 0.6 (1.0-2.7) L Vitamin D 25-Hydroxy Pending 25-Hydroxy Vitamin D2 Pending 25-Hydroxy Vitamin D3 Pending Hepatitis A IgM Antibody Pending Hepatitis B Surface Antigen Pending Hepatitis B Core IgM Antibody Pending Hepatitis C Antibody Pending HIV (1&2) Antibody Rapid Pending Objective HEAD AND NECK: Showed no JVD. LUNGS: Clear. CARDIOVASCULAR: Shows regular S1 and S2 with no gallop. ABDOMEN: Soft. EXTREMITIES: No pitting edema. Navjot Bains MD Aug 05, 2020 11:38
--- NOTE | 2020-08-05 12:01 | NUR ---
NURSE NOTES: LATE ENTRY: PT IN BED SEDATED rass -2. PUPILS 2MM SLUGGISH. RESPONSIVE. VS: 120, 167/85, 92%, 26 AX TEMP 99. PT INTUBATED . ET TUBE 7.5, 24CM AT LIP. SECRETIONS PINK. ORAL CARE PROVIDED. BOWEL SOUNDS ACTIVE. NO BM AT THIS TIME. OGT, CONNECTED TO FEEDING NEPRO AT 35ML/HR. NO RESIDUAL. REGALADO CATH DRAINING. EDEMA UPPER EXTREMITIES NOTED. BILATERAL SOFT WRIST RESTRAINTS ON. RADIAL PULSES PRESENT. AIR[place]ORNE AND FALL PRECAUTIONS IN PLACE. IV LT AC 20G, LT FA 20G. VERSED AT 9MG/HR. D5 1/2 NS 100ML/HR. SIDE RAILS X2. HOB 30. BED ALARM ON. WILL CONTINUE TO MONITOR PT.
--- NOTE | 2020-08-05 12:09 | General Progress Note ---
Subjective Constitutional: Reports: weakness Allergies: Coded Allergies: No Known Allergies (Unverified , 07/29/20) All Systems: reviewed and negative except above Subjective intubated sedated in icu Objective Last 24 Hour Vital Signs Date Time Temp Pulse Resp B/P (MAP) Pulse Ox O2 Delivery O2 Flow Rate FiO2 08/05/20 10:45 111 23 151/83 (105) 94 08/05/20 10:30 110 22 148/82 (104) 94 08/05/20 10:15 109 22 143/80 (101) 94 08/05/20 10:00 110 22 150/79 (102) 93 08/05/20 09:45 111 22 155/80 (105) 94 08/05/20 09:30 112 24 154/79 (104) 93 08/05/20 09:15 112 22 155/79 (104) 93 08/05/20 09:00 99.8 112 22 157/82 (107) 94 08/05/20 08:00 113 08/05/20 08:00 115 26 165/88 (113) 94 08/05/20 08:00 100 08/05/20 08:00 Mechanical Ventilator 08/05/20 07:59 116 25 100 08/05/20 07:00 113 25 155/85 (108) 94 08/05/20 06:00 112 22 157/85 (109) 93 08/05/20 06:00 23 100 08/05/20 05:06 117 167/88 08/05/20 05:00 115 25 163/94 (117) 95 08/05/20 05:00 21 Mechanical Ventilator 100 08/05/20 04:00 115 08/05/20 04:00 Mechanical Ventilator 08/05/20 04:00 99.9 114 25 156/86 (109) 92 08/05/20 04:00 22 100 08/05/20 03:14 115 27 100 08/05/20 03:05 23 Mechanical Ventilator 100 08/05/20 03:00 113 22 159/85 (109) 94 08/05/20 02:00 114 23 153/88 (109) 91 08/05/20 01:00 113 20 161/82 (108) 91 08/05/20 00:00 100 08/05/20 00:00 Mechanical Ventilator 08/05/20 00:00 110 08/05/20 00:00 99.1 109 22 147/82 (103) 92 08/04/20 23:00 112 24 154/84 (107) 92 08/04/20 23:00 24 Mechanical Ventilator 100 08/04/20 22:43 121 26 100 08/04/20 22:00 118 27 163/87 (112) 91 08/04/20 22:00 24 Mechanical Ventilator 100 08/04/20 21:52 114 153/87 08/04/20 21:00 116 25 153/87 (109) 91 08/04/20 21:00 27 Mechanical Ventilator 100 08/04/20 20:00 Mechanical Ventilator 08/04/20 20:00 99.5 115 26 157/87 (110) 90 08/04/20 20:00 24 Mechanical Ventilator 100 08/04/20 20:00 113 08/04/20 20:00 100 08/04/20 19:00 26 Mechanical Ventilator 100.0 100 08/04/20 19:00 115 27 100 08/04/20 19:00 116 25 161/82 (108) 90 08/04/20 18:00 115 26 164/85 (111) 91 08/04/20 18:00 27 Mechanical Ventilator 100 08/04/20 17:00 27 Mechanical Ventilator 100 08/04/20 17:00 107 25 154/82 (106) 91 08/04/20 16:29 27 100 08/04/20 16:00 Mechanical Ventilator 08/04/20 16:00 113 08/04/20 16:00 27 Mechanical Ventilator 100 08/04/20 16:00 98.9 114 27 166/85 (112) 90 08/04/20 16:00 100 08/04/20 15:20 109 27 90 08/04/20 15:00 25 Mechanical Ventilator 100 08/04/20 15:00 107 25 154/82 (106) 91 08/04/20 14:00 24 100 08/04/20 14:00 104 24 144/73 (96) 91 08/04/20 13:03 113 157/75 08/04/20 13:00 112 29 158/78 (104) 92 08/04/20 13:00 29 Mechanical Ventilator 100 Intake and Output 08/04/20 08/05/20 19:00 07:00 Intake Total 2226 ml 1376.2 ml Output Total 1610 ml 405 ml Balance 616 ml 971.2 ml Free Water 90 ml 60 ml IV Total 1716 ml 896.2 ml Tube Feeding 420 ml 420 ml Output Urine Total 1610 ml 405 ml Laboratory Tests 08/04/20 23:09: Arterial Blood pH 7.231*L, Arterial Blood Partial Pressure CO2 64.7*H, Arterial Blood Partial Pressure O2 73.5L, Arterial Blood HCO3 26.5H, Arterial Blood Oxygen Saturation 93.4L, Arterial Blood Base Excess -2.3L, Mehdi Test Positive 08/05/20 03:40: White Blood Count 20.0H, Red Blood Count 3.86L, Hemoglobin 12.9L, Hematocrit 39.7L, Mean Corpuscular Volume 103H, Mean Corpuscular Hemoglobin 33.3H, Mean Corpuscular Hemoglobin Concent 32.4, Red Cell Distribution Width 13.2, Platelet Count 98L, Mean Platelet Volume 7.4, Neutrophils (%) (Auto) , Lymphocytes (%) (Auto) , Monocytes (%) (Auto) , Eosinophils (%) (Auto) , Basophils (%) (Auto) , Differential Total Cells Counted 100, Neutrophils % (Manual) 87H, Lymphocytes % (Manual) 4L, Monocytes % (Manual) 9, Eosinophils % (Manual) 0, Basophils % (Manual) 0, Band Neutrophils 0, Platelet Estimate DecreasedL, Platelet Morphology Normal, Anisocytosis 1+, Sodium Level 149H, Potassium Level 5.0, Chloride Level 115H, Carbon Dioxide Level 30, Anion Gap 4L, Blood Urea Nitrogen 64H, Creatinine 2.1H, Estimat Glomerular Filtration Rate 31.9, Glucose Level 245#H, Lactic Acid Level 2.80H, Uric Acid 4.7, Calcium Level 7.4L, Phosphorus Level 3.3, Magnesium Level 3.7H, Total Bilirubin 0.6, Direct Bilirubin 0.2, Gamma Glutamyl Transpeptidase 219H, Aspartate Amino Transf (AST/SGOT) 436H, Alanine Aminotransferase (ALT/SGPT) 1488H, Alkaline Phosphatase 235H, Lactate Dehydrogenase 877H, Total Creatine Kinase 133, C-Reactive Protein, Quantitative 3.5H, Pro-B-Type Natriuretic Peptide 5656H, Total Protein 5.9L, Albumin 2.3L, Globulin 3.6, Albumin/Globulin Ratio 0.6L, Vitamin D 25-Hydroxy [Pending], 25- Hydroxy Vitamin D2 [Pending], 25-Hydroxy Vitamin D3 [Pending], Hepatitis A IgM Antibody [Pending], Hepatitis B Surface Antigen [Pending], Hepatitis B Core IgM Antibody [Pending], Hepatitis C Antibody [Pending], HIV (1&2) Antibody Rapid [Pending] Height (Feet): 5 Height (Inches): 5.00 Weight (Pounds): 160 General Appearance: lethargic EENT: normal ENT inspection Neck: normal alignment Cardiovascular: normal peripheral pulses, normal rate, regular rhythm Respiratory/Chest: chest wall non-tender, lungs clear, normal breath sounds Abdomen: normal bowel sounds, non tender, soft Extremities: normal inspection Edema: no edema noted Arm (L), no edema noted Arm (R), no edema noted Leg (L), no edema noted Leg (R), no edema noted Pedal (L), no edema noted Pedal (R), no edema noted Generalized Neurologic: motor weakness Skin: normal pigmentation, warm/dry Assessment/Plan Problem List: (1) Hypoxia ICD Codes: R09.02 - Hypoxemia SNOMED: 543124870 (2) Bilateral pneumonia ICD Codes: J18.9 - Pneumonia, unspecified organism SNOMED: 621395904, 058789132 (3) Acute respiratory failure with hypoxia ICD Codes: J96.01 - Acute respiratory failure with hypoxia SNOMED: 96270354, 427958241 (4) Bradycardia ICD Codes: R00.1 - Bradycardia, unspecified SNOMED: 20376499 (5) Malnutrition ICD Codes: E46 - Unspecified protein-calorie malnutrition SNOMED: 93311713 Status: unchanged Assessment/Plan: o2 pulm tx abx pt diet cardio f/u cbc bmp am Robert Guzman DO Aug 05, 2020 12:09
--- NOTE | 2020-08-05 12:33 | Pulmonology Progress Note ---
Subjective ROS Limited/Unobtainable: Yes Interval Events: Intubated 08/01/20 Constitutional: Denies: fever HEENT: Repors: no symptoms Respiratory: Reports: no symptoms Cardiovascular: Reports: no symptoms Gastrointestinal/Abdominal: Reports: no symptoms; Denies: nausea, vomiting, diarrhea Musculoskeletal: Denies: pain Allergies: Coded Allergies: No Known Allergies (Unverified , 07/29/20) All Systems: reviewed and negative except above Objective Last 24 Hour Vital Signs Date Time Temp Pulse Resp B/P (MAP) Pulse Ox O2 Delivery O2 Flow Rate FiO2 08/05/20 12:00 100 08/05/20 12:00 119 08/05/20 10:45 111 23 151/83 (105) 94 08/05/20 10:30 110 22 148/82 (104) 94 08/05/20 10:15 109 22 143/80 (101) 94 08/05/20 10:00 110 22 150/79 (102) 93 08/05/20 09:45 111 22 155/80 (105) 94 08/05/20 09:30 112 24 154/79 (104) 93 08/05/20 09:15 112 22 155/79 (104) 93 08/05/20 09:00 99.8 112 22 157/82 (107) 94 08/05/20 08:00 113 08/05/20 08:00 115 26 165/88 (113) 94 08/05/20 08:00 100 08/05/20 08:00 Mechanical Ventilator 08/05/20 07:59 116 25 100 08/05/20 07:00 113 25 155/85 (108) 94 08/05/20 06:00 112 22 157/85 (109) 93 08/05/20 06:00 23 100 08/05/20 05:06 117 167/88 08/05/20 05:00 115 25 163/94 (117) 95 08/05/20 05:00 21 Mechanical Ventilator 100 08/05/20 04:00 115 08/05/20 04:00 Mechanical Ventilator 08/05/20 04:00 99.9 114 25 156/86 (109) 92 08/05/20 04:00 22 100 08/05/20 03:14 115 27 100 08/05/20 03:05 23 Mechanical Ventilator 100 08/05/20 03:00 113 22 159/85 (109) 94 08/05/20 02:00 114 23 153/88 (109) 91 08/05/20 01:00 113 20 161/82 (108) 91 08/05/20 00:00 100 08/05/20 00:00 Mechanical Ventilator 08/05/20 00:00 110 08/05/20 00:00 99.1 109 22 147/82 (103) 92 08/04/20 23:00 112 24 154/84 (107) 92 08/04/20 23:00 24 Mechanical Ventilator 100 08/04/20 22:43 121 26 100 08/04/20 22:00 118 27 163/87 (112) 91 08/04/20 22:00 24 Mechanical Ventilator 100 08/04/20 21:52 114 153/87 08/04/20 21:00 116 25 153/87 (109) 91 08/04/20 21:00 27 Mechanical Ventilator 100 08/04/20 20:00 Mechanical Ventilator 08/04/20 20:00 99.5 115 26 157/87 (110) 90 08/04/20 20:00 24 Mechanical Ventilator 100 08/04/20 20:00 113 08/04/20 20:00 100 08/04/20 19:00 26 Mechanical Ventilator 100.0 100 08/04/20 19:00 115 27 100 08/04/20 19:00 116 25 161/82 (108) 90 08/04/20 18:00 115 26 164/85 (111) 91 08/04/20 18:00 27 Mechanical Ventilator 100 08/04/20 17:00 27 Mechanical Ventilator 100 08/04/20 17:00 107 25 154/82 (106) 91 08/04/20 16:29 27 100 08/04/20 16:00 Mechanical Ventilator 08/04/20 16:00 113 08/04/20 16:00 27 Mechanical Ventilator 100 08/04/20 16:00 98.9 114 27 166/85 (112) 90 08/04/20 16:00 100 08/04/20 15:20 109 27 90 08/04/20 15:00 25 Mechanical Ventilator 100 08/04/20 15:00 107 25 154/82 (106) 91 08/04/20 14:00 24 100 08/04/20 14:00 104 24 144/73 (96) 91 08/04/20 13:03 113 157/75 08/04/20 13:00 112 29 158/78 (104) 92 08/04/20 13:00 29 Mechanical Ventilator 100 Intake and Output 08/04/20 08/05/20 19:00 07:00 Intake Total 2226 ml 1376.2 ml Output Total 1610 ml 405 ml Balance 616 ml 971.2 ml Free Water 90 ml 60 ml IV Total 1716 ml 896.2 ml Tube Feeding 420 ml 420 ml Output Urine Total 1610 ml 405 ml General Appearance: no acute distress HEENT: normocephalic, atraumatic Respiratory: lungs clear Cardiovascular: normal rate, regular rhythm Abdomen: soft, non tender Laboratory Tests 08/04/20 23:09: Arterial Blood pH 7.231*L, Arterial Blood Partial Pressure CO2 64.7*H, Arterial Blood Partial Pressure O2 73.5L, Arterial Blood HCO3 26.5H, Arterial Blood Oxygen Saturation 93.4L, Arterial Blood Base Excess -2.3L, Mehdi Test Positive 08/05/20 03:40: White Blood Count 20.0H, Red Blood Count 3.86L, Hemoglobin 12.9L, Hematocrit 39.7L, Mean Corpuscular Volume 103H, Mean Corpuscular Hemoglobin 33.3H, Mean Corpuscular Hemoglobin Concent 32.4, Red Cell Distribution Width 13.2, Platelet Count 98L, Mean Platelet Volume 7.4, Neutrophils (%) (Auto) , Lymphocytes (%) (Auto) , Monocytes (%) (Auto) , Eosinophils (%) (Auto) , Basophils (%) (Auto) , Differential Total Cells Counted 100, Neutrophils % (Manual) 87H, Lymphocytes % (Manual) 4L, Monocytes % (Manual) 9, Eosinophils % (Manual) 0, Basophils % (Manual) 0, Band Neutrophils 0, Platelet Estimate DecreasedL, Platelet Morphology Normal, Anisocytosis 1+, Sodium Level 149H, Potassium Level 5.0, Chlo ride Level 115H, Carbon Dioxide Level 30, Anion Gap 4L, Blood Urea Nitrogen 64H, Creatinine 2.1H, Estimat Glomerular Filtration Rate 31.9, Glucose Level 245#H, Lactic Acid Level 2.80H, Uric Acid 4.7, Calcium Level 7.4L, Phosphorus Level 3.3, Magnesium Level 3.7H, Total Bilirubin 0.6, Direct Bilirubin 0.2, Gamma Glutamyl Transpeptidase 219H, Aspartate Amino Transf (AST/SGOT) 436H, Alanine Aminotransferase (ALT/SGPT) 1488H, Alkaline Phosphatase 235H, Lactate Dehydrogenase 877H, Total Creatine Kinase 133, C-Reactive Protein, Quantitative 3.5H, Pro-B-Type Natriuretic Peptide 5656H, Total Protein 5.9L, Albumin 2.3L, Globulin 3.6, Albumin/Globulin Ratio 0.6L, Vitamin D 25-Hydroxy [Pending], 25- Hydroxy Vitamin D2 [Pending], 25-Hydroxy Vitamin D3 [Pending], Hepatitis A IgM Antibody [Pending], Hepatitis B Surface Antigen [Pending], Hepatitis B Core IgM Antibody [Pending], Hepatitis C Antibody [Pending], HIV (1&2) Antibody Rapid [Pending] Current Medications Medications (Trade) Dose Ordered Sig/Fabiano Route PRN Reason Start Time Stop Time Status Last Admin Dose Admin Acetaminophen (Tylenol) 650 mg Q4H PRN NG Temp >100.5 08/03/20 04:15 09/02/20 04:14 08/03/20 04:26 Acetaminophen (Tylenol) 650 mg Q4H PRN RECTAL Temp >100.5 08/01/20 20:30 08/31/20 20:29 08/02/20 10:28 Albuterol Sulfate (Proventil MDI) 2 puff Q4H PRN INH Shortness of Breath 07/29/20 22:45 10/27/20 22:44 Cetylpyridinium Chloride (Cepacol) 1 lozg Q2H PRN [place] For Cough 07/30/20 21:00 10/28/20 20:59 08/01/20 08:47 Clonidine HCl (Catapres Tab) 0.1 mg Q2H PRN ORAL SBP > 170mmHg 08/04/20 09:45 11/02/20 09:44 Diltiazem HCl (Cardizem Tab) 60 mg EVERY 8 HOURS ORAL 08/05/20 14:00 09/03/20 13:59 Enoxaparin Sodium (Lovenox) 30 mg DAILY SUBQ 08/02/20 10:00 10/31/20 09:59 08/05/20 08:27 Guaifenesin/ Dextromethorphan (Robitussin DM Syrup) 15 ml Q6H PRN ORAL For Cough 07/31/20 08:30 10/29/20 08:29 08/01/20 08:47 Methylprednisolone Sodium Succinate (Solu-MEDROL) 40 mg EVERY 12 HOURS IVP 08/04/20 12:30 11/02/20 12:29 08/05/20 08:26 Midazolam HCl 100 mg/Sodium Chloride 200 ml @ 0 mls/hr Q24H PRN IV Restlessness 08/04/20 00:00 08/06/20 00:00 08/05/20 03:05 Morphine Sulfate (Morphine Sulfate) 4 mg Q4H PRN IVP Severe Pain (Pain Scale 7-10) 07/30/20 04:45 08/06/20 04:44 08/01/20 18:16 Pantoprazole (Protonix) 40 mg EVERY 12 HOURS IVP 08/02/20 21:00 09/01/20 20:59 08/05/20 08:26 Sodium Chloride 1,000 ml @ 100 mls/hr Q10H IV 08/05/20 08:45 09/04/20 08:44 08/05/20 09:00 Assessment/Plan Assessment/Plan 1. Respiratory Failure - intubated 08/01/20 - oxygenating better - Continue PEEP 12; now decreased to 5 - continue 100% Fio2; will attempt to decrease further 2. Hyponatremia - per primary MD 3. Hyperglycemia - BG control 5. Pneumonia - abx per ID - on dexamethasone (07/30-) - now on remdesivir per ID (08/01-) 6. COVID-19 rapid negative - COVID-19 PCR positive 7. Elevated inflammatory markers; ferritin, D-Dimer - likely secondary to #5 - On Lovenox Discussed with Milton Arambula MD Aug 05, 2020 12:33
--- NOTE | 2020-08-05 14:20 | NUR ---
NURSE NOTES: LATE ENTRY: PT CONJUNCTIVA EDEMA NOTED. EYES CLOSED TO PREVENT DRYNESS. SEDATION DRIP ADJUSTED FOR PT COMFORT. RESTRAINTS SECURE. CIRCULATION CHECK CONDUCTED. PULSES PRESENT. DEPENDENT EDEMA NOTED. WILL CONTINUE TO MONITOR PT.
[2020-08-05] MEDS: dilTIAZem HCl 60mg tab ORAL SCH ×2 (14:28→21:22)
[2020-08-05] MEDS: Acetaminophen 650mg/20.3ml NG PRN (14:28)
--- NOTE | 2020-08-05 14:38 | Cardiology Report ---
APPROVED REPORT EXAM: Two-dimensional and M-mode echocardiogram with Doppler and color Doppler. INDICATION Congestive Heart Failure M-Mode DIMENSIONS IVSd1.0 (0.7-1.1cm)Left Atrium (MM)3.1 (1.6-4.0cm) LVDd3.5 (3.5-5.6cm)Aortic Root3.3 (2.0-3.7cm) PWd1.0 (0.7-1.1cm)Aortic Cusp Exc.1.8 (1.5-2.0cm) IVSs1.3 cmEPSS0.3 (>1.0cm) LVDs2.5 (2.5-4.0cm) PWs1.3 cm <Conclusion> Technically difficult study due to poor acoustic windows and patient on vent. Study quality precludes accurate assessment of regional wall motion. Normal left ventricular chamber size, systolic function and wall motion. Left ventricular ejection fraction estimated to be 60 %. No evidence of left ventricular hypertrophy. Anterior Echo-free space, may be due to pericardial fat or effusion. All other cardiac chamber sizes are within normal limits. Focal aortic valve sclerosis with adequate cusp excursion. Thickened mitral valve leaflets with normal excursion. Mitral annulus and aortic root calcification. Pulmonic valve not well visualized. Normal tricuspid valve structure. IVC is normal in size with physiological collapse. A color flow and spectral Doppler study was performed and revealed: No aortic regurgitation. Trace mitral regurgitation. Mitral diastolic velocities suggest mild left ventricular diastolic dysfunction (Grade I). Trace tricuspid regurgitation. Tricuspid systolic velocities suggests peak right ventricular systolic pressure of 16 mmHg.
--- NOTE | 2020-08-05 16:30 | NUR ---
NURSE NOTES: LATE ENTRY: PM CARE PROVIDED. PT CLEANED AND REPOSITIONED. NO BM AT THIS TIME. OPTIFAOM DRESSING APPLIED TO PREVENT SKIN BREAKDOWN. PILLOWS PLACED ELEVATE PRESSURE POINTS. ORAL CARE AND SUCTION PT. WILL CONTINUE TO MONITOR PT.
[2020-08-05] MEDS ORDERED: Tubing IV Secondary IV ONE (17:42)
[2020-08-05] MEDS ORDERED: 1/2 NS 1000ml IV ONE (17:42)
[2020-08-05] MEDS ORDERED: D5NS 1000ml IV ONE ×2 (17:42)
[2020-08-05] MEDS ORDERED: D5 1/2NS 1000ml IV ONE (17:42)
[2020-08-05] MEDS ORDERED: NS 275ml ONE ×2 (17:42)
--- NOTE | 2020-08-05 19:10 | NUR ---
NURSE HAND-OFF REPORT: Latest Vital Signs: Temperature 99.0 , Pulse 108 , B/P 141 /73 , Respiratory Rate 22 , O2 SAT 93 , Mechanical Ventilator, O2 Flow Rate . Vital Sign Comment: EKG Rhythm: Sinus Tachycardia Rhythm change?: N Notified?: Moi Guzman MD Response: Latest Orozco Fall Score: 50 Fall Risk: High Risk Safety Measures: Call light Within Reach, Bed Alarm Zone 1, Side Rails Side Rails x2, Bed position Low and Locked. Fall Precautions: Yellow Socks Yellow Gown Door Sign Patient Fall Education Report given to POLLY Moralez
--- NOTE | 2020-08-05 19:30 | NUR ---
NURSE NOTES: Received pt in bed, sedated JOSÉ ANTONIO -2, on Versed, at 9mg/hr. Pt on vent via ETT tolerating current vent settings. OGT in place with Nepro running at 35cc/hr with no residuals noted. 1/2 NS infusing at 100cc/hr via LFA #20. Vernon cath in place draining yellow urine. VS stable and pt is sinus tach on the monitor.
--- NOTE | 2020-08-05 21:12 | Surgery Progress Note ---
Surgery Progress Note Subjective Additional Comments ill appearing on support no n/v labs noted Objective Last 24 Hour Vital Signs Date Time Temp Pulse Resp B/P (MAP) Pulse Ox O2 Delivery O2 Flow Rate FiO2 08/05/20 20:00 100 08/05/20 20:00 Mechanical Ventilator 08/05/20 20:00 98.2 112 24 159/77 (104) 92 08/05/20 19:12 109 22 100 08/05/20 19:00 110 23 153/76 (101) 94 08/05/20 18:00 108 22 141/73 (95) 93 08/05/20 17:30 109 22 145/72 (96) 93 08/05/20 17:15 111 22 148/73 (98) 93 08/05/20 17:00 114 23 151/72 (98) 93 08/05/20 17:00 23 Mechanical Ventilator 08/05/20 17:00 112 23 148/72 (97) 92 08/05/20 16:45 116 22 145/77 (99) 93 08/05/20 16:30 117 23 145/77 (99) 92 08/05/20 16:30 121 26 158/77 (104) 92 08/05/20 16:28 25 Mechanical Ventilator 08/05/20 16:15 117 25 147/66 (93) 92 08/05/20 16:00 117 08/05/20 16:00 100 08/05/20 16:00 108 22 145/72 (96) 93 08/05/20 16:00 Mechanical Ventilator 08/05/20 16:00 99.0 114 25 158/76 (103) 92 08/05/20 15:45 111 25 142/71 (94) 93 08/05/20 15:30 113 25 145/69 (94) 93 08/05/20 15:15 116 25 149/71 (97) 93 08/05/20 15:00 116 25 151/72 (98) 92 08/05/20 15:00 24 Mechanical Ventilator 08/05/20 14:58 99.0 08/05/20 14:28 122 170/85 08/05/20 14:28 26 Mechanical Ventilator 08/05/20 14:15 123 26 170/85 (113) 92 08/05/20 14:00 26 Mechanical Ventilator 08/05/20 14:00 123 25 167/91 (116) 92 08/05/20 13:45 122 26 100 08/05/20 13:00 122 25 165/85 (111) 91 08/05/20 13:00 27 Mechanical Ventilator 08/05/20 12:45 122 27 162/86 (111) 91 08/05/20 12:30 119 25 158/85 (109) 91 08/05/20 12:15 120 26 167/85 (112) 91 08/05/20 12:00 99.6 117 23 169/84 (112) 93 08/05/20 12:00 100 08/05/20 12:00 26 Mechanical Ventilator 08/05/20 12:00 119 08/05/20 12:00 Mechanical Ventilator 08/05/20 11:00 25 Mechanical Ventilator 08/05/20 10:45 111 23 151/83 (105) 94 08/05/20 10:30 110 22 148/82 (104) 94 08/05/20 10:15 109 22 143/80 (101) 94 08/05/20 10:00 22 Mechanical Ventilator 08/05/20 10:00 110 22 150/79 (102) 93 08/05/20 09:45 111 22 155/80 (105) 94 08/05/20 09:30 112 24 154/79 (104) 93 08/05/20 09:15 112 22 155/79 (104) 93 08/05/20 09:00 99.8 112 22 157/82 (107) 94 08/05/20 09:00 22 Mechanical Ventilator 08/05/20 08:00 113 08/05/20 08:00 115 26 165/88 (113) 94 08/05/20 08:00 100 08/05/20 08:00 Mechanical Ventilator 08/05/20 08:00 25 Mechanical Ventilator 08/05/20 07:59 116 25 100 08/05/20 07:00 24 Mechanical Ventilator 08/05/20 07:00 113 25 155/85 (108) 94 08/05/20 06:00 112 22 157/85 (109) 93 08/05/20 06:00 23 100 08/05/20 05:06 117 167/88 08/05/20 05:00 115 25 163/94 (117) 95 08/05/20 05:00 21 Mechanical Ventilator 100 08/05/20 04:00 115 08/05/20 04:00 Mechanical Ventilator 08/05/20 04:00 99.9 114 25 156/86 (109) 92 08/05/20 04:00 22 100 08/05/20 03:14 115 27 100 08/05/20 03:05 23 Mechanical Ventilator 100 08/05/20 03:00 113 22 159/85 (109) 94 08/05/20 02:00 114 23 153/88 (109) 91 08/05/20 01:00 113 20 161/82 (108) 91 08/05/20 00:00 100 08/05/20 00:00 Mechanical Ventilator 08/05/20 00:00 110 08/05/20 00:00 99.1 109 22 147/82 (103) 92 08/04/20 23:00 112 24 154/84 (107) 92 08/04/20 23:00 24 Mechanical Ventilator 100 08/04/20 22:43 121 26 100 08/04/20 22:00 118 27 163/87 (112) 91 08/04/20 22:00 24 Mechanical Ventilator 100 08/04/20 21:52 114 153/87 I&O Intake and Output 08/04/20 08/05/20 19:00 07:00 Intake Total 2226 ml 1494.2 ml Output Total 1610 ml 405 ml Balance 616 ml 1089.2 ml Free Water 90 ml 60 ml IV Total 1716 ml 1014.2 ml Tube Feeding 420 ml 420 ml Output Urine Total 1610 ml 405 ml Dressing: saturated Cardiovascular: RSR Respiratory: decreased breath sounds Abdomen: non-tender, present bowel sounds Extremities: no tenderness, no cyanosis Laboratory Tests Test 08/04/20 23:09 08/05/20 03:40 Arterial Blood pH 7.231 (7.350-7.450) Arterial Blood Partial Pressure CO2 64.7 mmHg (35.0-45.0) *H Arterial Blood Partial Pressure O2 73.5 mmHg (75.0-100.0) L Arterial Blood HCO3 26.5 mmol/L (22.0-26.0) H Arterial Blood Oxygen Saturation 93.4 % (95-100) L Arterial Blood Base Excess -2.3 (-2-2) L Mehdi Test Positive White Blood Count 20.0 K/UL (4.8-10.8) H Red Blood Count 3.86 M/UL (4.70-6.10) L Hemoglobin 12.9 G/DL (14.2-18.0) L Hematocrit 39.7 % (42.0-52.0) L Mean Corpuscular Volume 103 FL (80-99) H Mean Corpuscular Hemoglobin 33.3 PG (27.0-31.0) H Mean Corpuscular Hemoglobin Concent 32.4 G/DL (32.0-36.0) Red Cell Distribution Width 13.2 % (11.6-14.8) Platelet Count 98 K/UL (150-450) L Mean Platelet Volume 7.4 FL (6.5-10.1) Neutrophils (%) (Auto) % (45.0-75.0) Lymphocytes (%) (Auto) % (20.0-45.0) Monocytes (%) (Auto) % (1.0-10.0) Eosinophils (%) (Auto) % (0.0-3.0) Basophils (%) (Auto) % (0.0-2.0) Differential Total Cells Counted 100 Neutrophils % (Manual) 87 % (45-75) H Lymphocytes % (Manual) 4 % (20-45) L Monocytes % (Manual) 9 % (1-10) Eosinophils % (Manual) 0 % (0-3) Basophils % (Manual) 0 % (0-2) Band Neutrophils 0 % (0-8) Platelet Estimate Decreased L Platelet Morphology Normal Anisocytosis 1+ Sodium Level 149 MMOL/L (136-145) H Potassium Level 5.0 MMOL/L (3.5-5.1) Chloride Level 115 MMOL/L (98-107) H Carbon Dioxide Level 30 MMOL/L (21-32) Anion Gap 4 mmol/L (5-15) L Blood Urea Nitrogen 64 mg/dL (7-18) H Creatinine 2.1 MG/DL (0.55-1.30) H Estimat Glomerular Filtration Rate 31.9 mL/min (>60) Glucose Level 245 MG/DL (74-106) #H Lactic Acid Level 2.80 mmol/L (0.4-2.0) H Uric Acid 4.7 MG/DL (2.6-7.2) Calcium Level 7.4 MG/DL (8.5-10.1) L Phosphorus Level 3.3 MG/DL (2.5-4.9) Magnesium Level 3.7 MG/DL (1.8-2.4) H Total Bilirubin 0.6 MG/DL (0.2-1.0) Direct Bilirubin 0.2 MG/DL (0.0-0.3) Gamma Glutamyl Transpeptidase 219 U/L (5-85) H Aspartate Amino Transf (AST/SGOT) 436 U/L (15-37) H Alanine Aminotransferase (ALT/SGPT) 1488 U/L (12-78) H Alkaline Phosphatase 235 U/L (46-116) H Lactate Dehydrogenase 877 U/L (81-234) H Total Creatine Kinase 133 U/L (26-308) C-Reactive Protein, Quantitative 3.5 mg/dL (0.00-0.90) H Pro-B-Type Natriuretic Peptide 5656 pg/mL (0-125) H Total Protein 5.9 G/DL (6.4-8.2) L Albumin 2.3 G/DL (3.4-5.0) L Globulin 3.6 g/dL Albumin/Globulin Ratio 0.6 (1.0-2.7) L Vitamin D 25-Hydroxy Pending 25-Hydroxy Vitamin D2 Pending 25-Hydroxy Vitamin D3 Pending Hepatitis A IgM Antibody Pending Hepatitis B Surface Antigen Pending Hepatitis B Core IgM Antibody Pending Hepatitis C Antibody Pending HIV (1&2) Antibody Rapid Pending Plan Problems: (1) Hypoxia (2) Bilateral pneumonia (3) Acute respiratory failure with hypoxia Assessment & Plan: ards covid negative as per pulm id input appreciated abd pain likely cramping indigestion from ill ness ppi ordered okay for diet monitor intake am labs will follow with exam and recs acute decline intubated in ICU on vent liver insufficiency acute hepatic in sufficiency renal insufficiency no acute surgical intervention needs resuscitation meds reviewed (4) Bradycardia (5) Malnutrition Assessment & Plan: DAILY ESTIMATED NEEDS: Needs based on Criticpa care 64.5kg abw 22-28 kcals/kg 5388-5221 total kcals 1.2-2 g protein/kg 77-129 g total protein 25-30 mL/kg 5183-5895 total fluid mLs NUTRITION DIAGNOSIS: Altered nutrition related lab values related to clinical status as evidenced by elev LD(665), elev WBC(trending down 17.7), elev BG(132-176), elevated lytes(K, phos, mg), elev renal labs ([id number], creat 3.2), elev LFT's ENTERAL NUTRITION RECOMMENDATIONS: As medically able, rec non oral feeds: NEPRO @35ml/hr x24 hrs to provide 840ml, 1512 kcal, 68g pro, 611ml free H2O - With hemodynamic stability, rec OGt feeds to meet est needs. - Start Nepro @15ml/hr for 6 hrs, advance as tolerated 10ml/hr q4-6 hrs to goal - Flush per MD. HOB over 30 degrees - When tolerating TF at goal, add Prosource 1 pack daily to better meet est pro needs. ADDITIONAL RECOMMENDATIONS: 1) recalibrate bed scale wt for accurate CBW 2) Monitor BG, need for NISS 3) TF recs as above when stable for feeds . Vern Quevedo Aug 05, 2020 21:12
--- NOTE | 2020-08-05 22:00 | NUR ---
NURSE NOTES: Pt remains stable with stable VS. Pt remains sinus tach on the monitor.
[2020-08-06] VITALS (24 sets, daily range): BP systolic 149–175; BP diastolic 63–88
--- NOTE | 2020-08-06 | NUR ---
NURSE NOTES: Pt remains stable with stable VS. Pt remains JOSÉ ANTONIO -2 at 9mg/hr of versed. Pt remains sinus tach on the monitor.
[2020-08-06] MEDS ORDERED: Midazolam HCl 50mg/10ml vial 100 MG in NS 180 ML IV PRN (00:45)
--- NOTE | 2020-08-06 02:00 | NUR ---
Pt stable. VSS. Pt re[positioned for comfort.
--- NOTE | 2020-08-06 04:00 | NUR ---
NURSE NOTES: Pt noted to be less responsive. Versed drip held. Will continue to monitor pt.
[2020-08-06] MEDS: dilTIAZem HCl 60mg tab ORAL SCH ×4 (05:18→23:22)
[2020-08-06 05:45] LABS: HEMATOCRIT 40.4 % (42.0-52.0); MEAN CORPUSCULAR VOLUME 101 FL (80-99); PLATELET COUNT 118 K/UL (150-450); RED BLOOD COUNT 4.01 M/UL (4.70-6.10); RED CELL DISTRIBUTION WIDTH 12.9 % (11.6-14.8); WHITE BLOOD COUNT 19.2 K/UL (4.8-10.8)
[2020-08-06 06:12] LABS: ALBUMIN 2.2 G/DL (3.4-5.0); ALBUMIN/GLOBULIN RATIO 0.6 (1.0-2.7); BILIRUBIN,TOTAL 0.5 MG/DL (0.2-1.0); CALCIUM 8.2 MG/DL (8.5-10.1); POTASSIUM 5.2 MMOL/L (3.5-5.1)
[2020-08-06 06:29] LABS: PHOSPHORUS 3.1 MG/DL (2.5-4.9)
--- NOTE | 2020-08-06 06:30 | NUR ---
NURSE NOTES: Dr. Ornelas in to see pt. informed him that pt is less responsive. Neuro consult will be ordered.
--- NOTE | 2020-08-06 06:58 | Hematology/Onc Progress Note ---
Assessment/Plan Assessment/Plan Assessment and Recs # Leukocytosis with Acute respiratory failure with hypoxia/covid19++ --> wbc 27-->20-->19 --> ABx --> steriods as well --> pulm and ID # Thrombocytopenia is likely related to covid19 --> plt 83-->118 --> trend as needed --> transfuse prn --> hep and hiv pending # Respiratory Failure --> intubated 08/01/20 --> oxygenating better --> Continue PEEP 12; now decreased to 5 # AMs --> as per neuro # Hyponatremia --> per primary MD # Hyperglycemia --> BG control # Pneumonia --> abx per ID --> on dexamethasone (07/30-) --> now on remdesivir per ID (08/01-) # Covid19 with Elevated inflammatory markers; ferritin, D-Dimer --> On Lovenox # Dvt ppx lovenox sq Appreciate consultation and dw RN Subjective Constitutional: Denies: no symptoms, chills, fever, malaise, weakness, other Cardiovascular: Denies: no symptoms, chest pain, edema, irregular heart rate, lightheadedness, palpitations, syncope, other Respiratory: Denies: no symptoms, cough, shortness of breath, SOB with excertion, SOB at rest, sputum, wheezing, other Gastrointestinal/Abdominal: Denies: no symptoms, abdomen distended, abdominal pain, black stools, tarry stools, blood in stool, constipated, diarrhea, difficulty swallowing, nausea, poor appetite, poor fluid intake, rectal bleeding, vomiting, other Genitourinary: Denies: no symptoms, burning, discharge, frequency, flank pain, hematuria, incontinence, pain, urgency, other Neurologic/Psychiatric: Denies: no symptoms, anxiety, depressed, emotional problems, headache, numbness, paresthesia, pre-existing deficit, seizure, tingling, tremors, weakness, other Endocrine: Denies: no symptoms, excessive sweating, flushing, intolerance to cold, intolerance to heat, increased hunger, increased thirst, increased urine, unexplained weight gain, unexplained weight loss, other Hematologic/Lymphatic: Denies: no symptoms, anemia, easy bleeding, easy bruising, adenopathy, other Allergies: Coded Allergies: No Known Allergies (Unverified , 07/29/20) Subjective 08/06 remains altered, on vent, poorly responsive, as per Rn Sherri, to inform son Objective Objective Current Medications Medications (Trade) Dose Ordered Sig/Fabiano Route PRN Reason Start Time Stop Time Status Last Admin Dose Admin Acetaminophen (Tylenol) 650 mg Q4H PRN NG Temp >100.5 08/03/20 04:15 09/02/20 04:14 08/05/20 14:28 Acetaminophen (Tylenol) 650 mg Q4H PRN RECTAL Temp >100.5 08/01/20 20:30 08/31/20 20:29 08/02/20 10:28 Albuterol Sulfate (Proventil MDI) 2 puff Q4H PRN INH Shortness of Breath 07/29/20 22:45 10/27/20 22:44 Cetylpyridinium Chloride (Cepacol) 1 lozg Q2H PRN [place] For Cough 07/30/20 21:00 10/28/20 20:59 08/01/20 08:47 Clonidine HCl (Catapres Tab) 0.1 mg Q2H PRN ORAL SBP > 170mmHg 08/04/20 09:45 11/02/20 09:44 08/06/20 06:32 Diltiazem HCl (Cardizem Tab) 60 mg EVERY 8 HOURS ORAL 08/05/20 14:00 09/03/20 13:59 08/06/20 05:18 Enoxaparin Sodium (Lovenox) 30 mg DAILY SUBQ 08/02/20 10:00 10/31/20 09:59 08/05/20 08:27 Guaifenesin/ Dextromethorphan (Robitussin DM Syrup) 15 ml Q6H PRN ORAL For Cough 07/31/20 08:30 10/29/20 08:29 08/01/20 08:47 Methylprednisolone Sodium Succinate (Solu-MEDROL) 40 mg EVERY 12 HOURS IVP 08/04/20 12:30 11/02/20 12:29 08/05/20 21:21 Midazolam HCl 100 mg/Sodium Chloride 200 ml @ 0 mls/hr Q24H PRN IV For Anxiety 08/06/20 00:45 08/08/20 00:45 08/06/20 02:00 Pantoprazole (Protonix) 40 mg EVERY 12 HOURS IVP 08/02/20 21:00 09/01/20 20:59 08/05/20 21:21 Sodium Chloride 1,000 ml @ 100 mls/hr Q10H IV 08/05/20 08:45 09/04/20 08:44 08/05/20 22:21 Last 24 Hour Vital Signs Date Time Temp Pulse Resp B/P (MAP) Pulse Ox O2 Delivery O2 Flow Rate FiO2 08/06/20 06:32 171/79 08/06/20 06:00 116 27 175/85 (115) 91 08/06/20 05:18 112 163/81 08/06/20 05:00 117 31 166/81 (109) 08/06/20 05:00 31 100 08/06/20 04:00 114 08/06/20 04:00 99.9 114 25 169/84 (112) 94 08/06/20 04:00 100 08/06/20 04:00 25 Mechanical Ventilator 100 08/06/20 04:00 Mechanical Ventilator 08/06/20 03:15 114 25 100 08/06/20 03:00 23 Mechanical Ventilator 100 08/06/20 03:00 112 23 166/81 (109) 94 08/06/20 02:00 108 22 153/75 (101) 94 08/06/20 02:00 23 Mechanical Ventilator 100 08/06/20 02:00 22 100 08/06/20 01:00 23 Mechanical Ventilator 100 08/06/20 01:00 107 22 152/74 (100) 94 08/06/20 00:00 23 Mechanical Ventilator 100 08/06/20 00:00 110 08/06/20 00:00 99.3 110 23 149/75 (99) 94 08/06/20 00:00 Mechanical Ventilator 08/05/20 23:00 25 100 08/05/20 23:00 118 25 169/87 (114) 92 08/05/20 23:00 120 26 100 08/05/20 22:00 116 25 164/78 (106) 92 08/05/20 22:00 25 Mechanical Ventilator 100 08/05/20 21:22 115 169/86 08/05/20 21:00 25 Mechanical Ventilator 100 08/05/20 21:00 115 25 162/81 (108) 92 08/05/20 20:00 100 08/05/20 20:00 Mechanical Ventilator 08/05/20 20:00 22 Mechanical Ventilator 100 08/05/20 20:00 114 08/05/20 20:00 98.2 112 24 159/77 (104) 92 08/05/20 19:12 109 22 100 08/05/20 19:00 23 Mechanical Ventilator 100 08/05/20 19:00 110 23 153/76 (101) 94 08/05/20 18:00 108 22 141/73 (95) 93 08/05/20 17:30 109 22 145/72 (96) 93 08/05/20 17:15 111 22 148/73 (98) 93 08/05/20 17:00 114 23 151/72 (98) 93 08/05/20 17:00 23 Mechanical Ventilator 08/05/20 17:00 112 23 148/72 (97) 92 08/05/20 16:45 116 22 145/77 (99) 93 08/05/20 16:30 117 23 145/77 (99) 92 08/05/20 16:30 121 26 158/77 (104) 92 08/05/20 16:28 25 Mechanical Ventilator 08/05/20 16:15 117 25 147/66 (93) 92 08/05/20 16:00 117 08/05/20 16:00 100 08/05/20 16:00 108 22 145/72 (96) 93 08/05/20 16:00 Mechanical Ventilator 08/05/20 16:00 99.0 114 25 158/76 (103) 92 08/05/20 15:45 111 25 142/71 (94) 93 08/05/20 15:30 113 25 145/69 (94) 93 08/05/20 15:15 116 25 149/71 (97) 93 08/05/20 15:00 116 25 151/72 (98) 92 08/05/20 15:00 24 Mechanical Ventilator 08/05/20 14:58 99.0 08/05/20 14:28 122 170/85 08/05/20 14:28 26 Mechanical Ventilator 08/05/20 14:15 123 26 170/85 (113) 92 08/05/20 14:00 26 Mechanical Ventilator 08/05/20 14:00 123 25 167/91 (116) 92 08/05/20 13:45 122 26 100 08/05/20 13:00 122 25 165/85 (111) 91 08/05/20 13:00 27 Mechanical Ventilator 08/05/20 12:45 122 27 162/86 (111) 91 08/05/20 12:30 119 25 158/85 (109) 91 08/05/20 12:15 120 26 167/85 (112) 91 08/05/20 12:00 99.6 117 23 169/84 (112) 93 08/05/20 12:00 100 08/05/20 12:00 26 Mechanical Ventilator 08/05/20 12:00 119 08/05/20 12:00 Mechanical Ventilator 08/05/20 11:00 25 Mechanical Ventilator 08/05/20 10:45 111 23 151/83 (105) 94 08/05/20 10:30 110 22 148/82 (104) 94 08/05/20 10:15 109 22 143/80 (101) 94 08/05/20 10:00 22 Mechanical Ventilator 08/05/20 10:00 110 22 150/79 (102) 93 08/05/20 09:45 111 22 155/80 (105) 94 08/05/20 09:30 112 24 154/79 (104) 93 08/05/20 09:15 112 22 155/79 (104) 93 08/05/20 09:00 99.8 112 22 157/82 (107) 94 08/05/20 09:00 22 Mechanical Ventilator 08/05/20 08:00 113 08/05/20 08:00 115 26 165/88 (113) 94 08/05/20 08:00 100 08/05/20 08:00 Mechanical Ventilator 08/05/20 08:00 25 Mechanical Ventilator 08/05/20 07:59 116 25 100 08/05/20 07:00 24 Mechanical Ventilator 08/05/20 07:00 113 25 155/85 (108) 94 08/05/20 06:00 112 22 157/85 (109) 93 08/05/20 06:00 23 100 08/05/20 05:06 117 167/88 08/05/20 05:00 115 25 163/94 (117) 95 08/05/20 05:00 21 Mechanical Ventilator 100 08/05/20 04:00 115 08/05/20 04:00 Mechanical Ventilator 08/05/20 04:00 99.9 114 25 156/86 (109) 92 08/05/20 04:00 22 100 08/05/20 03:14 115 27 100 08/05/20 03:05 23 Mechanical Ventilator 100 08/05/20 03:00 113 22 159/85 (109) 94 08/05/20 02:00 114 23 153/88 (109) 91 08/05/20 01:00 113 20 161/82 (108) 91 08/05/20 00:00 100 08/05/20 00:00 Mechanical Ventilator 08/05/20 00:00 110 08/05/20 00:00 99.1 109 22 147/82 (103) 92 08/04/20 23:00 112 24 154/84 (107) 92 08/04/20 23:00 24 Mechanical Ventilator 100 08/04/20 22:43 121 26 100 08/04/20 22:00 118 27 163/87 (112) 91 08/04/20 22:00 24 Mechanical Ventilator 100 08/04/20 21:52 114 153/87 08/04/20 21:00 116 25 153/87 (109) 91 08/04/20 21:00 27 Mechanical Ventilator 100 08/04/20 20:00 Mechanical Ventilator 08/04/20 20:00 99.5 115 26 157/87 (110) 90 08/04/20 20:00 24 Mechanical Ventilator 100 08/04/20 20:00 113 08/04/20 20:00 100 08/04/20 19:00 26 Mechanical Ventilator 100.0 100 08/04/20 19:00 115 27 100 08/04/20 19:00 116 25 161/82 (108) 90 08/04/20 18:00 115 26 164/85 (111) 91 08/04/20 18:00 27 Mechanical Ventilator 100 08/04/20 17:00 27 Mechanical Ventilator 100 08/04/20 17:00 107 25 154/82 (106) 91 08/04/20 16:29 27 100 08/04/20 16:00 Mechanical Ventilator 08/04/20 16:00 113 08/04/20 16:00 27 Mechanical Ventilator 100 08/04/20 16:00 98.9 114 27 166/85 (112) 90 08/04/20 16:00 100 08/04/20 15:20 109 27 90 08/04/20 15:00 25 Mechanical Ventilator 100 08/04/20 15:00 107 25 154/82 (106) 91 08/04/20 14:00 24 100 08/04/20 14:00 104 24 144/73 (96) 91 08/04/20 13:03 113 157/75 08/04/20 13:00 112 29 158/78 (104) 92 08/04/20 13:00 29 Mechanical Ventilator 100 08/04/20 12:00 Mechanical Ventilator 08/04/20 12:00 104 08/04/20 12:00 100 08/04/20 12:00 98.6 112 26 157/78 (104) 93 08/04/20 12:00 26 Mechanical Ventilator 100 08/04/20 11:30 100 08/04/20 11:20 113 26 90 08/04/20 11:00 27 Mechanical Ventilator 90 08/04/20 11:00 113 28 157/75 (102) 90 08/04/20 10:00 114 27 154/77 (102) 90 08/04/20 10:00 27 Mechanical Ventilator 90 08/04/20 09:00 115 27 157/74 (101) 90 08/04/20 09:00 27 Mechanical Ventilator 90 08/04/20 08:00 90 08/04/20 08:00 Mechanical Ventilator 08/04/20 08:00 99.1 113 27 157/74 (101) 93 08/04/20 08:00 27 Mechanical Ventilator 90 08/04/20 08:00 109 08/04/20 07:15 117 24 90 08/04/20 07:00 27 Mechanical Ventilator 90 08/04/20 07:00 111 27 157/78 (104) 90 Intake and Output 08/05/20 08/06/20 19:00 07:00 Intake Total 1623 ml 1767 ml Output Total 550 ml 695 ml Balance 1073 ml 1072 ml IV Total 1188 ml 1262 ml Tube Feeding 420 ml 385 ml Other 15 ml 120 ml Output Urine Total 550 ml 695 ml Stool Total 0 ml Labs Test 08/03/20 07:42 08/03/20 11:30 08/03/20 12:45 08/03/20 16:00 Arterial Blood pH 7.138 (7.350-7.450) 7.253 (7.350-7.450) Arterial Blood Partial Pressure CO2 76.9 mmHg (35.0-45.0) 51.5 mmHg (35.0-45.0) Arterial Blood Partial Pressure O2 207.5 mmHg (75.0-100.0) 68.5 mmHg (75.0-100.0) Arterial Blood HCO3 25.5 mmol/L (22.0-26.0) 22.2 mmol/L (22.0-26.0) Arterial Blood Oxygen Saturation 98.9 % (95-100) 93.1 % (95-100) Arterial Blood Base Excess -5.2 (-2-2) -5.3 (-2-2) Mehdi Test Positive Positive Lactic Acid Level 2.90 mmol/L (0.4-2.0) 3.00 mmol/L (0.66-2.22) Test 08/03/20 17:35 08/03/20 23:42 08/04/20 05:00 08/04/20 08:50 Lactic Acid Level 2.60 mmol/L (0.4-2.0) 2.20 mmol/L (0.4-2.0) 2.70 mmol/L (0.4-2.0) 2.60 mmol/L (0.4-2.0) White Blood Count 16.9 K/UL (4.8-10.8) Red Blood Count 3.73 M/UL (4.70-6.10) Hemoglobin 12.3 G/DL (14.2-18.0) Hematocrit 38.2 % (42.0-52.0) Mean Corpuscular Volume 103 FL (80-99) Mean Corpuscular Hemoglobin 32.9 PG (27.0-31.0) Mean Corpuscular Hemoglobin Concent 32.1 G/DL (32.0-36.0) Red Cell Distribution Width 12.9 % (11.6-14.8) Platelet Count 74 K/UL (150-450) Mean Platelet Volume 6.6 FL (6.5-10.1) Neutrophils (%) (Auto) % (45.0-75.0) Lymphocytes (%) (Auto) % (20.0-45.0) Monocytes (%) (Auto) % (1.0-10.0) Eosinophils (%) (Auto) % (0.0-3.0) Basophils (%) (Auto) % (0.0-2.0) Differential Total Cells Counted 100 Neutrophils % (Manual) 93 % (45-75) Lymphocytes % (Manual) 3 % (20-45) Monocytes % (Manual) 3 % (1-10) Eosinophils % (Manual) 1 % (0-3) Basophils % (Manual) 0 % (0-2) Band Neutrophils 0 % (0-8) Platelet Estimate Decreased Platelet Morphology Normal Red Blood Cell Morphology Normal Sodium Level 146 MMOL/L (136-145) Potassium Level 4.8 MMOL/L (3.5-5.1) Chloride Level 113 MMOL/L (98-107) Carbon Dioxide Level 26 MMOL/L (21-32) Anion Gap 7 mmol/L (5-15) Blood Urea Nitrogen 74 mg/dL (7-18) Creatinine 2.6 MG/DL (0.55-1.30) Estimat Glomerular Filtration Rate 24.9 mL/min (>60) Glucose Level 124 MG/DL (74-106) Uric Acid 6.5 MG/DL (2.6-7.2) Calcium Level 7.5 MG/DL (8.5-10.1) Phosphorus Level 5.1 MG/DL (2.5-4.9) Magnesium Level 3.4 MG/DL (1.8-2.4) Total Bilirubin 0.5 MG/DL (0.2-1.0) Direct Bilirubin 0.2 MG/DL (0.0-0.3) Gamma Glutamyl Transpeptidase 165 U/L (5-85) Aspartate Amino Transf (AST/SGOT) 932 U/L (15-37) Alanine Aminotransferase (ALT/SGPT) 1644 U/L (12-78) Alkaline Phosphatase 184 U/L (46-116) Ammonia 51 umol/L (11-32) Lactate Dehydrogenase 1354 U/L (81-234) C-Reactive Protein, Quantitative 7.9 mg/dL (0.00-0.90) Pro-B-Type Natriuretic Peptide 7472 pg/mL (0-125) Total Protein 5.7 G/DL (6.4-8.2) Albumin 2.7 G/DL (3.4-5.0) Globulin 3.0 g/dL Albumin/Globulin Ratio 0.9 (1.0-2.7) Test 08/04/20 23:09 1/12/21 03:40 08/06/20 04:20 Arterial Blood pH 7.231 (7.350-7.450) Arterial Blood Partial Pressure CO2 64.7 mmHg (35.0-45.0) Arterial Blood Partial Pressure O2 73.5 mmHg (75.0-100.0) Arterial Blood HCO3 26.5 mmol/L (22.0-26.0) Arterial Blood Oxygen Saturation 93.4 % (95-100) Arterial Blood Base Excess -2.3 (-2-2) Mehdi Test Positive White Blood Count 20.0 K/UL (4.8-10.8) 19.2 K/UL (4.8-10.8) Red Blood Count 3.86 M/UL (4.70-6.10) 4.01 M/UL (4.70-6.10) Hemoglobin 12.9 G/DL (14.2-18.0) 13.0 G/DL (14.2-18.0) Hematocrit 39.7 % (42.0-52.0) 40.4 % (42.0-52.0) Mean Corpuscular Volume 103 FL (80-99) 101 FL (80-99) Mean Corpuscular Hemoglobin 33.3 PG (27.0-31.0) 32.4 PG (27.0-31.0) Mean Corpuscular Hemoglobin Concent 32.4 G/DL (32.0-36.0) 32.2 G/DL (32.0-36.0) Red Cell Distribution Width 13.2 % (11.6-14.8) 12.9 % (11.6-14.8) Platelet Count 98 K/UL (150-450) 118 K/UL (150-450) Mean Platelet Volume 7.4 FL (6.5-10.1) 6.8 FL (6.5-10.1) Neutrophils (%) (Auto) % (45.0-75.0) % (45.0-75.0) Lymphocytes (%) (Auto) % (20.0-45.0) % (20.0-45.0) Monocytes (%) (Auto) % (1.0-10.0) % (1.0-10.0) Eosinophils (%) (Auto) % (0.0-3.0) % (0.0-3.0) Basophils (%) (Auto) % (0.0-2.0) % (0.0-2.0) Differential Total Cells Counted 100 Neutrophils % (Manual) 87 % (45-75) Lymphocytes % (Manual) 4 % (20-45) Monocytes % (Manual) 9 % (1-10) Eosinophils % (Manual) 0 % (0-3) Basophils % (Manual) 0 % (0-2) Band Neutrophils 0 % (0-8) Platelet Estimate Decreased Platelet Morphology Normal Anisocytosis 1+ Sodium Level 149 MMOL/L (136-145) 152 MMOL/L (136-145) Potassium Level 5.0 MMOL/L (3.5-5.1) 5.2 MMOL/L (3.5-5.1) Chloride Level 115 MMOL/L (98-107) 117 MMOL/L (98-107) Carbon Dioxide Level 30 MMOL/L (21-32) 33 MMOL/L (21-32) Anion Gap 4 mmol/L (5-15) 2 mmol/L (5-15) Blood Urea Nitrogen 64 mg/dL (7-18) 63 mg/dL (7-18) Creatinine 2.1 MG/DL (0.55-1.30) 2.0 MG/DL (0.55-1.30) Estimat Glomerular Filtration Rate 31.9 mL/min (>60) 33.7 mL/min (>60) Glucose Level 245 MG/DL (74-106) 198 MG/DL (74-106) Lactic Acid Level 2.80 mmol/L (0.4-2.0) Uric Acid 4.7 MG/DL (2.6-7.2) 4.5 MG/DL (2.6-7.2) Calcium Level 7.4 MG/DL (8.5-10.1) 8.2 MG/DL (8.5-10.1) Phosphorus Level 3.3 MG/DL (2.5-4.9) 3.1 MG/DL (2.5-4.9) Magnesium Level 3.7 MG/DL (1.8-2.4) 3.5 MG/DL (1.8-2.4) Total Bilirubin 0.6 MG/DL (0.2-1.0) 0.5 MG/DL (0.2-1.0) Direct Bilirubin 0.2 MG/DL (0.0-0.3) Gamma Glutamyl Transpeptidase 219 U/L (5-85) Aspartate Amino Transf (AST/SGOT) 436 U/L (15-37) 152 U/L (15-37) Alanine Aminotransferase (ALT/SGPT) 1488 U/L (12-78) 953 U/L (12-78) Alkaline Phosphatase 235 U/L (46-116) 209 U/L (46-116) Lactate Dehydrogenase 877 U/L (81-234) Total Creatine Kinase 133 U/L (26-308) C-Reactive Protein, Quantitative 3.5 mg/dL (0.00-0.90) Pro-B-Type Natriuretic Peptide 5656 pg/mL (0-125) 3393 pg/mL (0-125) Total Protein 5.9 G/DL (6.4-8.2) 5.6 G/DL (6.4-8.2) Albumin 2.3 G/DL (3.4-5.0) 2.2 G/DL (3.4-5.0) Globulin 3.6 g/dL 3.4 g/dL Albumin/Globulin Ratio 0.6 (1.0-2.7) 0.6 (1.0-2.7) HIV (1&2) Antibody Rapid Negative (NEGATIVE) Micro Microbiology Date/Time Source Procedure Growth Status 08/05/20 18:00 Sputum Expectorated Gram Stain - Final Resulted 08/05/20 18:00 Sputum Expectorated Sputum Culture Pending Resulted Height (Feet): 5 Height (Inches): 5.00 Weight (Pounds): 160 Objective Vital Signs Vitals: reviewed, abnormal General Appearance: well appearing, mild distress HEENT: hearing grossly normal, moist mucus membranes Neck: full range of motion, supple Respiratory: ++vent Cardiovascular: normal peripheral pulses, regular rate, rhythm, no murmur Gastrointestinal: non tender, soft, non-distended, no guarding Neurologic: alert, oriented x3, no focal defects Skin: normal color, warm/dry Robin Ornelas MD Aug 06, 2020 06:58
--- NOTE | 2020-08-06 07:15 | NUR ---
NURSE NOTES:Handoff received from CARLOS Bowie. Patient received in bed, obtunded with no response to name, shaking or pain. Patient is placed on isolation for COVID-19. Jamir stated that the Versed for the patient has been stopped due to a change in responsiveness. Patient is placed on fall and aspiration precautions with bed in the low and locked position, HOB elevated to 30". patient has ETT 7.5 placed 24cm from the lipline, patient also has OGT running Nepro@35ML/HR. No skin issues noted. Patient has 3 IV sites L FA20G x2 and right wrist 22G, all clean dry and intact with LFA running 1/2NS@100ML/HR. Will follow plan of care. Addendum: 08/06/20 at 0815 by Carlitos Frazier RN Patient has ETT 7.5, 24cm at the lipline connected to ventilator with settings: AC16, FI02 100, TV 500 and PEEP 5. tolerating well with 02 sat of 94%.
--- NOTE | 2020-08-06 07:25 | NUR ---
NURSE HAND-OFF REPORT: Latest Vital Signs: Temperature 99.9 , Pulse 118 , B/P 168 /85 , Respiratory Rate 27 , O2 SAT 90 , Mechanical Ventilator, O2 Flow Rate . Vital Sign Comment: BP on the high side EKG Rhythm: Sinus Tachycardia Rhythm change?: N Notified?: Moi Guzman MD Response: Latest Orozco Fall Score: 50 Fall Risk: High Risk Safety Measures: Call light Within Reach, Bed Alarm Zone 1, Side Rails Side Rails x2, Bed position Low and Locked. Fall Precautions: Yellow Socks Yellow Gown Door Sign Patient Fall Education Report given to .
--- NOTE | 2020-08-06 08:12 | NUR ---
RD ASSESSMENT & RECOMMENDATIONS SEE CARE ACTIVITY FOR COMPLETE ASSESSMENT DAILY ESTIMATED NEEDS: Needs based on [facility] care 64.5kg abw 22-28 kcals/kg 3071-2243 total kcals 1.2-2 g protein/kg 77-129 g total protein 25-30 mL/kg 7687-2509 total fluid mLs NUTRITION DIAGNOSIS: Altered nutrition related lab values related to clinical status as evidenced by elev LD(665), elev WBC(trending down 17.7), elev BG(198-245), elevated lytes(K, phos, mg), elev renal labs (BUN now 63, creat 3.2->now 2.0), elev LFT's CURRENT TF: Nepro @35ml/hr ENTERAL NUTRITION RECOMMENDATIONS: As medically able, rec non oral feeds: nepro @35ml/hr x24 hrs to provide 840ml, 1512 kcal, 68g pro, 611ml free H2O - With hemodynamic stability, rec OGt feeds to meet est needs. - Start Nepro @15ml/hr for 6 hrs, advance as tolerated 10ml/hr q4-6 hrs to goal - Flush per MD. HOB over 30 degrees - When tolerating at goal, add Prosource 1 pack daily to better meet est pro needs. ADDITIONAL RECOMMENDATIONS: 1) recalibrate bed scale wt for accurate CBW 2) Monitor BG, need for NISS (BG elevated 198-245) 3) TF recs as above when stable for feeds -> when tolerating TF at goal, add prosource 1 pack qdaily (11g pro) .
--- NOTE | 2020-08-06 09:04 | NUR ---
NURSE NOTES:Dr Guzman rounded on patient, informed him that patient is unresponsive to painful stimulus and cannot be aroused.
[2020-08-06] MEDS ORDERED: Bisacodyl EC 5mg tab ORAL SCH (09:15)
[2020-08-06] MEDS: Solu-MEDROL 40mg Inj IVP SCH ×2 (09:16→20:27)
--- NOTE | 2020-08-06 09:17 | General Progress Note ---
Subjective ROS Limited/Unobtainable: No Allergies: Coded Allergies: No Known Allergies (Unverified , 07/29/20) Objective Last 24 Hour Vital Signs Date Time Temp Pulse Resp B/P (MAP) Pulse Ox O2 Delivery O2 Flow Rate FiO2 08/06/20 08:00 119 08/06/20 08:00 Mechanical Ventilator 08/06/20 08:00 121 29 174/88 (116) 92 08/06/20 08:00 100 08/06/20 07:09 114 27 100 08/06/20 07:00 118 27 168/85 (112) 90 08/06/20 06:32 171/79 08/06/20 06:00 116 27 175/85 (115) 91 08/06/20 05:18 112 163/81 08/06/20 05:00 117 31 166/81 (109) 08/06/20 05:00 31 100 08/06/20 04:00 114 08/06/20 04:00 99.9 114 25 169/84 (112) 94 08/06/20 04:00 100 08/06/20 04:00 25 Mechanical Ventilator 100 08/06/20 04:00 Mechanical Ventilator 08/06/20 03:15 114 25 100 08/06/20 03:00 23 Mechanical Ventilator 100 08/06/20 03:00 112 23 166/81 (109) 94 08/06/20 02:00 108 22 153/75 (101) 94 08/06/20 02:00 23 Mechanical Ventilator 100 08/06/20 02:00 22 100 08/06/20 01:00 23 Mechanical Ventilator 100 08/06/20 01:00 107 22 152/74 (100) 94 08/06/20 00:00 23 Mechanical Ventilator 100 08/06/20 00:00 110 08/06/20 00:00 99.3 110 23 149/75 (99) 94 08/06/20 00:00 Mechanical Ventilator 08/05/20 23:00 25 100 08/05/20 23:00 118 25 169/87 (114) 92 08/05/20 23:00 120 26 100 08/05/20 22:00 116 25 164/78 (106) 92 08/05/20 22:00 25 Mechanical Ventilator 100 08/05/20 21:22 115 169/86 08/05/20 21:00 25 Mechanical Ventilator 100 08/05/20 21:00 115 25 162/81 (108) 92 08/05/20 20:00 100 08/05/20 20:00 Mechanical Ventilator 08/05/20 20:00 22 Mechanical Ventilator 100 08/05/20 20:00 114 08/05/20 20:00 98.2 112 24 159/77 (104) 92 08/05/20 19:12 109 22 100 08/05/20 19:00 23 Mechanical Ventilator 100 08/05/20 19:00 110 23 153/76 (101) 94 08/05/20 18:00 108 22 141/73 (95) 93 08/05/20 17:30 109 22 145/72 (96) 93 08/05/20 17:15 111 22 148/73 (98) 93 08/05/20 17:00 114 23 151/72 (98) 93 08/05/20 17:00 23 Mechanical Ventilator 08/05/20 17:00 112 23 148/72 (97) 92 08/05/20 16:45 116 22 145/77 (99) 93 08/05/20 16:30 117 23 145/77 (99) 92 08/05/20 16:30 121 26 158/77 (104) 92 08/05/20 16:28 25 Mechanical Ventilator 08/05/20 16:15 117 25 147/66 (93) 92 08/05/20 16:00 117 08/05/20 16:00 100 08/05/20 16:00 108 22 145/72 (96) 93 08/05/20 16:00 Mechanical Ventilator 08/05/20 16:00 99.0 114 25 158/76 (103) 92 08/05/20 15:45 111 25 142/71 (94) 93 08/05/20 15:30 113 25 145/69 (94) 93 08/05/20 15:15 116 25 149/71 (97) 93 08/05/20 15:00 116 25 151/72 (98) 92 08/05/20 15:00 24 Mechanical Ventilator 08/05/20 14:58 99.0 08/05/20 14:28 122 170/85 08/05/20 14:28 26 Mechanical Ventilator 08/05/20 14:15 123 26 170/85 (113) 92 08/05/20 14:00 26 Mechanical Ventilator 08/05/20 14:00 123 25 167/91 (116) 92 08/05/20 13:45 122 26 100 08/05/20 13:00 122 25 165/85 (111) 91 08/05/20 13:00 27 Mechanical Ventilator 08/05/20 12:45 122 27 162/86 (111) 91 08/05/20 12:30 119 25 158/85 (109) 91 08/05/20 12:15 120 26 167/85 (112) 91 08/05/20 12:00 99.6 117 23 169/84 (112) 93 08/05/20 12:00 100 08/05/20 12:00 26 Mechanical Ventilator 08/05/20 12:00 119 08/05/20 12:00 Mechanical Ventilator 08/05/20 11:00 25 Mechanical Ventilator 08/05/20 10:45 111 23 151/83 (105) 94 08/05/20 10:30 110 22 148/82 (104) 94 08/05/20 10:15 109 22 143/80 (101) 94 08/05/20 10:00 22 Mechanical Ventilator 08/05/20 10:00 110 22 150/79 (102) 93 08/05/20 09:45 111 22 155/80 (105) 94 08/05/20 09:30 112 24 154/79 (104) 93 Intake and Output 08/05/20 08/06/20 19:00 07:00 Intake Total 1623 ml 1902 ml Output Total 550 ml 745 ml Balance 1073 ml 1157 ml IV Total 1188 ml 1362 ml Tube Feeding 420 ml 420 ml Other 15 ml 120 ml Output Urine Total 550 ml 745 ml Stool Total 0 ml Laboratory Tests 08/06/20 04:20: White Blood Count 19.2H, Red Blood Count 4.01L, Hemoglobin 13.0L, Hematocrit 40.4L, Mean Corpuscular Volume 101H, Mean Corpuscular Hemoglobin 32.4H, Mean Corpuscular Hemoglobin Concent 32.2, Red Cell Distribution Width 12.9, Platelet Count 118L, Mean Platelet Volume 6.8, Neutrophils (%) (Auto) , Lymphocytes (%) (Auto) , Monocytes (%) (Auto) , Eosinophils (%) (Auto) , Basophils (%) (Auto) , Differential Total Cells Counted 100, Neutrophils % (Manual) 96H, Lymphocytes % (Manual) 1L, Monocytes % (Manual) 3, Eosinophils % (Manual) 0, Basophils % (Manual) 0, Band Neutrophils 0, Platelet Estimate DecreasedL, Platelet Morphology Normal, Macrocytosis 1+, Sodium Level 152H, Potassium Level 5.2H, Chloride Level 117H, Carbon Dioxide Level 33H, Anion Gap 2L, Blood Urea Nitrogen 63H, Creatinine 2.0H, Estimat Glomerular Filtration Rate 33.7, Glucose Level 198H, Uric Acid 4.5, Calcium Level 8.2L, Phosphorus Level 3.1, Magnesium Level 3.5H, Total Bilirubin 0.5, Aspartate Amino Transf (AST/SGOT) 152H, Alanine Aminotransferase (ALT/SGPT) 953H, Alkaline Phosphatase 209H, C-Reactive Protein, Quantitative 2.2H, Pro-B-Type Natriuretic Peptide 3393H, Total Protein 5.6L, Albumin 2.2L, Globulin 3.4, Albumin/Globulin Ratio 0.6L 08/06/20 07:40: Arterial Blood pH 7.283L, Arterial Blood Partial Pressure CO2 70.4*H, Arterial Blood Partial Pressure O2 59.9L, Arterial Blood HCO3 32.6H, Arterial Blood Oxygen Saturation 91.3L, Arterial Blood Base Excess 3.7H, Mehdi Test Positive Height (Feet): 5 Height (Inches): 5.00 Weight (Pounds): 160 General Appearance: lethargic, mild distress EENT: normal ENT inspection Neck: supple Cardiovascular: normal rate Respiratory/Chest: decreased breath sounds Abdomen: non tender, soft Extremities: non-tender Assessment/Plan Problem List: (1) Hypoxia ICD Codes: R09.02 - Hypoxemia SNOMED: 497597307 (2) Bilateral pneumonia ICD Codes: J18.9 - Pneumonia, unspecified organism SNOMED: 941709889, 725012819 (3) Acute respiratory failure with hypoxia ICD Codes: J96.01 - Acute respiratory failure with hypoxia SNOMED: 55175400, 401090031 (4) Bradycardia ICD Codes: R00.1 - Bradycardia, unspecified SNOMED: 57076196 (5) Malnutrition ICD Codes: E46 - Unspecified protein-calorie malnutrition SNOMED: 68998192 (6) Shock liver ICD Codes: K72.00 - Acute and subacute hepatic failure without coma SNOMED: 026816117 (7) ERIKA (acute kidney injury) ICD Codes: N17.9 - Acute kidney failure, unspecified SNOMED: 2073218, 13844967 Status: unchanged Assessment/Plan: NGTF covid care fu labs abx per ID shock liver>>>fu LFTS add bowel regimen poor prognosis will Enoch Beverly MD Aug 06, 2020 09:17
[2020-08-06] MEDS: Enoxaparin 30mg Inj SUBQ SCH (09:18)
[2020-08-06] MEDS: Pantoprazole Inj IVP SCH (09:19)
--- NOTE | 2020-08-06 09:19 | General Progress Note ---
Subjective Constitutional: Reports: weakness Allergies: Coded Allergies: No Known Allergies (Unverified , 07/29/20) All Systems: reviewed and negative except above Subjective intubated sedated in icu Objective Last 24 Hour Vital Signs Date Time Temp Pulse Resp B/P (MAP) Pulse Ox O2 Delivery O2 Flow Rate FiO2 08/06/20 08:00 119 08/06/20 08:00 Mechanical Ventilator 08/06/20 08:00 121 29 174/88 (116) 92 08/06/20 08:00 100 08/06/20 07:09 114 27 100 08/06/20 07:00 118 27 168/85 (112) 90 08/06/20 06:32 171/79 08/06/20 06:00 116 27 175/85 (115) 91 08/06/20 05:18 112 163/81 08/06/20 05:00 117 31 166/81 (109) 08/06/20 05:00 31 100 08/06/20 04:00 114 08/06/20 04:00 99.9 114 25 169/84 (112) 94 08/06/20 04:00 100 08/06/20 04:00 25 Mechanical Ventilator 100 08/06/20 04:00 Mechanical Ventilator 08/06/20 03:15 114 25 100 08/06/20 03:00 23 Mechanical Ventilator 100 08/06/20 03:00 112 23 166/81 (109) 94 08/06/20 02:00 108 22 153/75 (101) 94 08/06/20 02:00 23 Mechanical Ventilator 100 08/06/20 02:00 22 100 08/06/20 01:00 23 Mechanical Ventilator 100 08/06/20 01:00 107 22 152/74 (100) 94 08/06/20 00:00 23 Mechanical Ventilator 100 08/06/20 00:00 110 08/06/20 00:00 99.3 110 23 149/75 (99) 94 08/06/20 00:00 Mechanical Ventilator 08/05/20 23:00 25 100 08/05/20 23:00 118 25 169/87 (114) 92 08/05/20 23:00 120 26 100 08/05/20 22:00 116 25 164/78 (106) 92 08/05/20 22:00 25 Mechanical Ventilator 100 08/05/20 21:22 115 169/86 08/05/20 21:00 25 Mechanical Ventilator 100 08/05/20 21:00 115 25 162/81 (108) 92 08/05/20 20:00 100 08/05/20 20:00 Mechanical Ventilator 08/05/20 20:00 22 Mechanical Ventilator 100 08/05/20 20:00 114 08/05/20 20:00 98.2 112 24 159/77 (104) 92 08/05/20 19:12 109 22 100 08/05/20 19:00 23 Mechanical Ventilator 100 08/05/20 19:00 110 23 153/76 (101) 94 08/05/20 18:00 108 22 141/73 (95) 93 08/05/20 17:30 109 22 145/72 (96) 93 08/05/20 17:15 111 22 148/73 (98) 93 08/05/20 17:00 114 23 151/72 (98) 93 08/05/20 17:00 23 Mechanical Ventilator 08/05/20 17:00 112 23 148/72 (97) 92 08/05/20 16:45 116 22 145/77 (99) 93 08/05/20 16:30 117 23 145/77 (99) 92 08/05/20 16:30 121 26 158/77 (104) 92 08/05/20 16:28 25 Mechanical Ventilator 08/05/20 16:15 117 25 147/66 (93) 92 08/05/20 16:00 117 08/05/20 16:00 100 08/05/20 16:00 108 22 145/72 (96) 93 08/05/20 16:00 Mechanical Ventilator 08/05/20 16:00 99.0 114 25 158/76 (103) 92 08/05/20 15:45 111 25 142/71 (94) 93 08/05/20 15:30 113 25 145/69 (94) 93 08/05/20 15:15 116 25 149/71 (97) 93 08/05/20 15:00 116 25 151/72 (98) 92 08/05/20 15:00 24 Mechanical Ventilator 08/05/20 14:58 99.0 08/05/20 14:28 122 170/85 08/05/20 14:28 26 Mechanical Ventilator 08/05/20 14:15 123 26 170/85 (113) 92 08/05/20 14:00 26 Mechanical Ventilator 08/05/20 14:00 123 25 167/91 (116) 92 08/05/20 13:45 122 26 100 08/05/20 13:00 122 25 165/85 (111) 91 08/05/20 13:00 27 Mechanical Ventilator 08/05/20 12:45 122 27 162/86 (111) 91 08/05/20 12:30 119 25 158/85 (109) 91 08/05/20 12:15 120 26 167/85 (112) 91 08/05/20 12:00 99.6 117 23 169/84 (112) 93 08/05/20 12:00 100 08/05/20 12:00 26 Mechanical Ventilator 08/05/20 12:00 119 08/05/20 12:00 Mechanical Ventilator 08/05/20 11:00 25 Mechanical Ventilator 08/05/20 10:45 111 23 151/83 (105) 94 08/05/20 10:30 110 22 148/82 (104) 94 08/05/20 10:15 109 22 143/80 (101) 94 08/05/20 10:00 22 Mechanical Ventilator 08/05/20 10:00 110 22 150/79 (102) 93 08/05/20 09:45 111 22 155/80 (105) 94 08/05/20 09:30 112 24 154/79 (104) 93 Intake and Output 08/05/20 08/06/20 19:00 07:00 Intake Total 1623 ml 1902 ml Output Total 550 ml 745 ml Balance 1073 ml 1157 ml IV Total 1188 ml 1362 ml Tube Feeding 420 ml 420 ml Other 15 ml 120 ml Output Urine Total 550 ml 745 ml Stool Total 0 ml Laboratory Tests 08/06/20 04:20: White Blood Count 19.2H, Red Blood Count 4.01L, Hemoglobin 13.0L, Hematocrit 40.4L, Mean Corpuscular Volume 101H, Mean Corpuscular Hemoglobin 32.4H, Mean Corpuscular Hemoglobin Concent 32.2, Red Cell Distribution Width 12.9, Platelet Count 118L, Mean Platelet Volume 6.8, Neutrophils (%) (Auto) , Lymphocytes (%) (Auto) , Monocytes (%) (Auto) , Eosinophils (%) (Auto) , Basophils (%) (Auto) , Differential Total Cells Counted 100, Neutrophils % (Manual) 96H, Lymphocytes % (Manual) 1L, Monocytes % (Manual) 3, Eosinophils % (Manual) 0, Basophils % (Manual) 0, Band Neutrophils 0, Platelet Estimate DecreasedL, Platelet Morphology Normal, Macrocytosis 1+, Sodium Level 152H, Potassium Level 5.2H, Chloride Level 117H, Carbon Dioxide Level 33H, Anion Gap 2L, Blood Urea Nitrogen 63H, Creatinine 2.0H, Estimat Glomerular Filtration Rate 33.7, Glucose Level 198H, Uric Acid 4.5, Calcium Level 8.2L, Phosphorus Level 3.1, Magnesium Level 3.5H, Total Bilirubin 0.5, Aspartate Amino Transf (AST/SGOT) 152H, Alanine Aminotransferase (ALT/SGPT) 953H, Alkaline Phosphatase 209H, C-Reactive Protein, Quantitative 2.2H, Pro-B-Type Natriuretic Peptide 3393H, Total Protein 5.6L, Albumin 2.2L, Globulin 3.4, Albumin/Globulin Ratio 0.6L 08/06/20 07:40: Arterial Blood pH 7.283L, Arterial Blood Partial Pressure CO2 70.4*H, Arterial B lood Partial Pressure O2 59.9L, Arterial Blood HCO3 32.6H, Arterial Blood Oxygen Saturation 91.3L, Arterial Blood Base Excess 3.7H, Mehdi Test Positive Height (Feet): 5 Height (Inches): 5.00 Weight (Pounds): 160 General Appearance: lethargic EENT: normal ENT inspection Neck: normal alignment Cardiovascular: normal peripheral pulses, normal rate, regular rhythm Respiratory/Chest: chest wall non-tender, lungs clear, normal breath sounds Abdomen: normal bowel sounds, non tender, soft Extremities: normal inspection Edema: no edema noted Arm (L), no edema noted Arm (R), no edema noted Leg (L), no edema noted Leg (R), no edema noted Pedal (L), no edema noted Pedal (R), no edema noted Generalized Neurologic: motor weakness Skin: normal pigmentation, warm/dry Assessment/Plan Problem List: (1) Hypoxia ICD Codes: R09.02 - Hypoxemia SNOMED: 346635888 (2) Bilateral pneumonia ICD Codes: J18.9 - Pneumonia, unspecified organism SNOMED: 605291221, 696036357 (3) Acute respiratory failure with hypoxia ICD Codes: J96.01 - Acute respiratory failure with hypoxia SNOMED: 71619803, 802010640 (4) Bradycardia ICD Codes: R00.1 - Bradycardia, unspecified SNOMED: 50281092 (5) Malnutrition ICD Codes: E46 - Unspecified protein-calorie malnutrition SNOMED: 95984345 Status: unchanged Assessment/Plan: o2 pulm tx abx pt diet cardio f/u cbc bmp am Robert Guzman DO Aug 06, 2020 09:19
--- NOTE | 2020-08-06 10:39 | Cardiac Electrophysiology PN ---
Assessment/Plan Assessment/Plan 1. Bradycardia off any sinus-galen or AV-galen blocking agents. Echocardiogram EF 60% 2. HTN and tachycardia. On Cardizem 60 tid Add prn Clonidine 3. Respiratory failure due to Covid PNA intubated on 100% Fio2 and PEEP 5 4. Acute renal failure with CR 2.5 5. Shock Liver with AST and ALT >1100 6.Sepsis. White count 21,000 on IV antibiotic per Dr. Antonio. DW RN Subjective Subjective In ICU intubated on 100% Fio2 and PEP 5. Remdesevir DCed for renal failure and high LFTS. Has fever and thrombocytopenia. EF 60%. On Cardizem 60 tid. Unresponsive to pain. BP as high as 170s Objective Last 24 Hour Vital Signs Date Time Temp Pulse Resp B/P (MAP) Pulse Ox O2 Delivery O2 Flow Rate FiO2 08/06/20 10:00 125 30 169/81 (110) 90 08/06/20 09:00 99.4 118 27 161/77 (105) 91 08/06/20 08:00 119 08/06/20 08:00 Mechanical Ventilator 08/06/20 08:00 121 29 174/88 (116) 92 08/06/20 08:00 100 08/06/20 07:09 114 27 100 08/06/20 07:00 118 27 168/85 (112) 90 08/06/20 06:32 171/79 08/06/20 06:00 116 27 175/85 (115) 91 08/06/20 05:18 112 163/81 08/06/20 05:00 117 31 166/81 (109) 08/06/20 05:00 31 100 08/06/20 04:00 114 08/06/20 04:00 99.9 114 25 169/84 (112) 94 08/06/20 04:00 100 08/06/20 04:00 25 Mechanical Ventilator 100 08/06/20 04:00 Mechanical Ventilator 08/06/20 03:15 114 25 100 08/06/20 03:00 23 Mechanical Ventilator 100 08/06/20 03:00 112 23 166/81 (109) 94 08/06/20 02:00 108 22 153/75 (101) 94 08/06/20 02:00 23 Mechanical Ventilator 100 08/06/20 02:00 22 100 08/06/20 01:00 23 Mechanical Ventilator 100 08/06/20 01:00 107 22 152/74 (100) 94 08/06/20 00:00 23 Mechanical Ventilator 100 08/06/20 00:00 110 08/06/20 00:00 99.3 110 23 149/75 (99) 94 08/06/20 00:00 Mechanical Ventilator 08/05/20 23:00 25 100 08/05/20 23:00 118 25 169/87 (114) 92 08/05/20 23:00 120 26 100 08/05/20 22:00 116 25 164/78 (106) 92 08/05/20 22:00 25 Mechanical Ventilator 100 08/05/20 21:22 115 169/86 08/05/20 21:00 25 Mechanical Ventilator 100 08/05/20 21:00 115 25 162/81 (108) 92 08/05/20 20:00 100 08/05/20 20:00 Mechanical Ventilator 08/05/20 20:00 22 Mechanical Ventilator 100 08/05/20 20:00 114 08/05/20 20:00 98.2 112 24 159/77 (104) 92 08/05/20 19:12 109 22 100 08/05/20 19:00 23 Mechanical Ventilator 100 08/05/20 19:00 110 23 153/76 (101) 94 08/05/20 18:00 108 22 141/73 (95) 93 08/05/20 17:30 109 22 145/72 (96) 93 08/05/20 17:15 111 22 148/73 (98) 93 08/05/20 17:00 114 23 151/72 (98) 93 08/05/20 17:00 23 Mechanical Ventilator 08/05/20 17:00 112 23 148/72 (97) 92 08/05/20 16:45 116 22 145/77 (99) 93 08/05/20 16:30 117 23 145/77 (99) 92 08/05/20 16:30 121 26 158/77 (104) 92 08/05/20 16:28 25 Mechanical Ventilator 08/05/20 16:15 117 25 147/66 (93) 92 08/05/20 16:00 117 08/05/20 16:00 100 08/05/20 16:00 108 22 145/72 (96) 93 08/05/20 16:00 Mechanical Ventilator 08/05/20 16:00 99.0 114 25 158/76 (103) 92 08/05/20 15:45 111 25 142/71 (94) 93 08/05/20 15:30 113 25 145/69 (94) 93 08/05/20 15:15 116 25 149/71 (97) 93 08/05/20 15:00 116 25 151/72 (98) 92 08/05/20 15:00 24 Mechanical Ventilator 08/05/20 14:58 99.0 08/05/20 14:28 122 170/85 08/05/20 14:28 26 Mechanical Ventilator 08/05/20 14:15 123 26 170/85 (113) 92 08/05/20 14:00 26 Mechanical Ventilator 08/05/20 14:00 123 25 167/91 (116) 92 08/05/20 13:45 122 26 100 08/05/20 13:00 122 25 165/85 (111) 91 08/05/20 13:00 27 Mechanical Ventilator 08/05/20 12:45 122 27 162/86 (111) 91 08/05/20 12:30 119 25 158/85 (109) 91 08/05/20 12:15 120 26 167/85 (112) 91 08/05/20 12:00 99.6 117 23 169/84 (112) 93 08/05/20 12:00 100 08/05/20 12:00 26 Mechanical Ventilator 08/05/20 12:00 119 08/05/20 12:00 Mechanical Ventilator 08/05/20 11:00 25 Mechanical Ventilator 08/05/20 10:45 111 23 151/83 (105) 94 Intake and Output 08/05/20 08/06/20 19:00 07:00 Intake Total 1623 ml 1902 ml Output Total 550 ml 745 ml Balance 1073 ml 1157 ml IV Total 1188 ml 1362 ml Tube Feeding 420 ml 420 ml Other 15 ml 120 ml Output Urine Total 550 ml 745 ml Stool Total 0 ml Laboratory Tests Test 08/06/20 04:20 08/06/20 07:40 White Blood Count 19.2 K/UL (4.8-10.8) H Red Blood Count 4.01 M/UL (4.70-6.10) L Hemoglobin 13.0 G/DL (14.2-18.0) L Hematocrit 40.4 % (42.0-52.0) L Mean Corpuscular Volume 101 FL (80-99) H Mean Corpuscular Hemoglobin 32.4 PG (27.0-31.0) H Mean Corpuscular Hemoglobin Concent 32.2 G/DL (32.0-36.0) Red Cell Distribution Width 12.9 % (11.6-14.8) Platelet Count 118 K/UL (150-450) L Mean Platelet Volume 6.8 FL (6.5-10.1) Neutrophils (%) (Auto) % (45.0-75.0) Lymphocytes (%) (Auto) % (20.0-45.0) Monocytes (%) (Auto) % (1.0-10.0) Eosinophils (%) (Auto) % (0.0-3.0) Basophils (%) (Auto) % (0.0-2.0) Differential Total Cells Counted 100 Neutrophils % (Manual) 96 % (45-75) H Lymphocytes % (Manual) 1 % (20-45) L Monocytes % (Manual) 3 % (1-10) Eosinophils % (Manual) 0 % (0-3) Basophils % (Manual) 0 % (0-2) Band Neutrophils 0 % (0-8) Platelet Estimate Decreased L Platelet Morphology Normal Macrocytosis 1+ Sodium Level 152 MMOL/L (136-145) H Potassium Level 5.2 MMOL/L (3.5-5.1) H Chloride Level 117 MMOL/L (98-107) H Carbon Dioxide Level 33 MMOL/L (21-32) H Anion Gap 2 mmol/L (5-15) L Blood Urea Nitrogen 63 mg/dL (7-18) H Creatinine 2.0 MG/DL (0.55-1.30) H Estimat Glomerular Filtration Rate 33.7 mL/min (>60) Glucose Level 198 MG/DL (74-106) H Uric Acid 4.5 MG/DL (2.6-7.2) Calcium Level 8.2 MG/DL (8.5-10.1) L Phosphorus Level 3.1 MG/DL (2.5-4.9) Magnesium Level 3.5 MG/DL (1.8-2.4) H Total Bilirubin 0.5 MG/DL (0.2-1.0) Aspartate Amino Transf (AST/SGOT) 152 U/L (15-37) H Alanine Aminotransferase (ALT/SGPT) 953 U/L (12-78) H Alkaline Phosphatase 209 U/L (46-116) H C-Reactive Protein, Quantitative 2.2 mg/dL (0.00-0.90) H Pro-B-Type Natriuretic Peptide 3393 pg/mL (0-125) H Total Protein 5.6 G/DL (6.4-8.2) L Albumin 2.2 G/DL (3.4-5.0) L Globulin 3.4 g/dL Albumin/Globulin Ratio 0.6 (1.0-2.7) L Arterial Blood pH 7.283 (7.350-7.450) Arterial Blood Partial Pressure CO2 70.4 mmHg (35.0-45.0) *H Arterial Blood Partial Pressure O2 59.9 mmHg (75.0-100.0) L Arterial Blood HCO3 32.6 mmol/L (22.0-26.0) H Arterial Blood Oxygen Saturation 91.3 % (95-100) L Arterial Blood Base Excess 3.7 (-2-2) H Mehdi Test Positive Microbiology Date/Time Source Procedure Growth Status 08/05/20 18:00 Sputum Expectorated Gram Stain - Final Resulted 08/05/20 18:00 Sputum Expectorated Sputum Culture Pending Resulted Objective HEAD AND NECK: Showed no JVD. LUNGS: Clear. CARDIOVASCULAR: Shows regular S1 and S2 with no gallop. ABDOMEN: Soft. EXTREMITIES: No pitting edema. Navjot Bains MD Aug 06, 2020 10:39
--- NOTE | 2020-08-06 10:50 | Infectious Diseases Prog Note ---
Assessment/Plan Assessment/Plan antibiotics : none A 1. covid 19 pneumonia on 100 % Fi O2 with 90 % saturation 2. respiratory failure P 1. continue solumedrol 2. continue isolation Subjective ROS Limited/Unobtainable: Yes Allergies: Coded Allergies: No Known Allergies (Unverified , 07/29/20) Objective Last 24 Hour Vital Signs Date Time Temp Pulse Resp B/P (MAP) Pulse Ox O2 Delivery O2 Flow Rate FiO2 08/06/20 10:45 121 25 100 08/06/20 10:00 125 30 169/81 (110) 90 08/06/20 09:00 99.4 118 27 161/77 (105) 91 08/06/20 08:00 119 08/06/20 08:00 Mechanical Ventilator 08/06/20 08:00 121 29 174/88 (116) 92 08/06/20 08:00 100 08/06/20 07:09 114 27 100 08/06/20 07:00 118 27 168/85 (112) 90 08/06/20 06:32 171/79 08/06/20 06:00 116 27 175/85 (115) 91 08/06/20 05:18 112 163/81 08/06/20 05:00 117 31 166/81 (109) 08/06/20 05:00 31 100 08/06/20 04:00 114 08/06/20 04:00 99.9 114 25 169/84 (112) 94 08/06/20 04:00 100 08/06/20 04:00 25 Mechanical Ventilator 100 08/06/20 04:00 Mechanical Ventilator 08/06/20 03:15 114 25 100 08/06/20 03:00 23 Mechanical Ventilator 100 08/06/20 03:00 112 23 166/81 (109) 94 08/06/20 02:00 108 22 153/75 (101) 94 08/06/20 02:00 23 Mechanical Ventilator 100 08/06/20 02:00 22 100 08/06/20 01:00 23 Mechanical Ventilator 100 08/06/20 01:00 107 22 152/74 (100) 94 08/06/20 00:00 23 Mechanical Ventilator 100 08/06/20 00:00 110 08/06/20 00:00 99.3 110 23 149/75 (99) 94 08/06/20 00:00 Mechanical Ventilator 08/05/20 23:00 25 100 08/05/20 23:00 118 25 169/87 (114) 92 08/05/20 23:00 120 26 100 08/05/20 22:00 116 25 164/78 (106) 92 08/05/20 22:00 25 Mechanical Ventilator 100 08/05/20 21:22 115 169/86 08/05/20 21:00 25 Mechanical Ventilator 100 08/05/20 21:00 115 25 162/81 (108) 92 08/05/20 20:00 100 08/05/20 20:00 Mechanical Ventilator 08/05/20 20:00 22 Mechanical Ventilator 100 08/05/20 20:00 114 08/05/20 20:00 98.2 112 24 159/77 (104) 92 08/05/20 19:12 109 22 100 08/05/20 19:00 23 Mechanical Ventilator 100 08/05/20 19:00 110 23 153/76 (101) 94 08/05/20 18:00 108 22 141/73 (95) 93 08/05/20 17:30 109 22 145/72 (96) 93 08/05/20 17:15 111 22 148/73 (98) 93 08/05/20 17:00 114 23 151/72 (98) 93 08/05/20 17:00 23 Mechanical Ventilator 08/05/20 17:00 112 23 148/72 (97) 92 08/05/20 16:45 116 22 145/77 (99) 93 08/05/20 16:30 117 23 145/77 (99) 92 08/05/20 16:30 121 26 158/77 (104) 92 08/05/20 16:28 25 Mechanical Ventilator 08/05/20 16:15 117 25 147/66 (93) 92 08/05/20 16:00 117 08/05/20 16:00 100 08/05/20 16:00 108 22 145/72 (96) 93 08/05/20 16:00 Mechanical Ventilator 08/05/20 16:00 99.0 114 25 158/76 (103) 92 08/05/20 15:45 111 25 142/71 (94) 93 08/05/20 15:30 113 25 145/69 (94) 93 08/05/20 15:15 116 25 149/71 (97) 93 08/05/20 15:00 116 25 151/72 (98) 92 08/05/20 15:00 24 Mechanical Ventilator 08/05/20 14:58 99.0 08/05/20 14:28 122 170/85 08/05/20 14:28 26 Mechanical Ventilator 08/05/20 14:15 123 26 170/85 (113) 92 08/05/20 14:00 26 Mechanical Ventilator 08/05/20 14:00 123 25 167/91 (116) 92 08/05/20 13:45 122 26 100 08/05/20 13:00 122 25 165/85 (111) 91 08/05/20 13:00 27 Mechanical Ventilator 08/05/20 12:45 122 27 162/86 (111) 91 08/05/20 12:30 119 25 158/85 (109) 91 08/05/20 12:15 120 26 167/85 (112) 91 08/05/20 12:00 99.6 117 23 169/84 (112) 93 08/05/20 12:00 100 08/05/20 12:00 26 Mechanical Ventilator 08/05/20 12:00 119 08/05/20 12:00 Mechanical Ventilator 08/05/20 11:00 25 Mechanical Ventilator Height (Feet): 5 Height (Inches): 5.00 Weight (Pounds): 160 Microbiology Date/Time Source Procedure Growth Status 08/05/20 18:00 Sputum Expectorated Gram Stain - Final Resulted 08/05/20 18:00 Sputum Expectorated Sputum Culture Pending Resulted Laboratory Tests Test 08/06/20 04:20 08/06/20 07:40 White Blood Count 19.2 K/UL (4.8-10.8) H Red Blood Count 4.01 M/UL (4.70-6.10) L Hemoglobin 13.0 G/DL (14.2-18.0) L Hematocrit 40.4 % (42.0-52.0) L Mean Corpuscular Volume 101 FL (80-99) H Mean Corpuscular Hemoglobin 32.4 PG (27.0-31.0) H Mean Corpuscular Hemoglobin Concent 32.2 G/DL (32.0-36.0) Red Cell Distribution Width 12.9 % (11.6-14.8) Platelet Count 118 K/UL (150-450) L Mean Platelet Volume 6.8 FL (6.5-10.1) Neutrophils (%) (Auto) % (45.0-75.0) Lymphocytes (%) (Auto) % (20.0-45.0) Monocytes (%) (Auto) % (1.0-10.0) Eosinophils (%) (Auto) % (0.0-3.0) Basophils (%) (Auto) % (0.0-2.0) Differential Total Cells Counted 100 Neutrophils % (Manual) 96 % (45-75) H Lymphocytes % (Manual) 1 % (20-45) L Monocytes % (Manual) 3 % (1-10) Eosinophils % (Manual) 0 % (0-3) Basophils % (Manual) 0 % (0-2) Band Neutrophils 0 % (0-8) Platelet Estimate Decreased L Platelet Morphology Normal Macrocytosis 1+ Sodium Level 152 MMOL/L (136-145) H Potassium Level 5.2 MMOL/L (3.5-5.1) H Chloride Level 117 MMOL/L (98-107) H Carbon Dioxide Level 33 MMOL/L (21-32) H Anion Gap 2 mmol/L (5-15) L Blood Urea Nitrogen 63 mg/dL (7-18) H Creatinine 2.0 MG/DL (0.55-1.30) H Estimat Glomerular Filtration Rate 33.7 mL/min (>60) Glucose Level 198 MG/DL (74-106) H Uric Acid 4.5 MG/DL (2.6-7.2) Calcium Level 8.2 MG/DL (8.5-10.1) L Phosphorus Level 3.1 MG/DL (2.5-4.9) Magnesium Level 3.5 MG/DL (1.8-2.4) H Total Bilirubin 0.5 MG/DL (0.2-1.0) Aspartate Amino Transf (AST/SGOT) 152 U/L (15-37) H Alanine Aminotransferase (ALT/SGPT) 953 U/L (12-78) H Alkaline Phosphatase 209 U/L (46-116) H C-Reactive Protein, Quantitative 2.2 mg/dL (0.00-0.90) H Pro-B-Type Natriuretic Peptide 3393 pg/mL (0-125) H Total Protein 5.6 G/DL (6.4-8.2) L Albumin 2.2 G/DL (3.4-5.0) L Globulin 3.4 g/dL Albumin/Globulin Ratio 0.6 (1.0-2.7) L Arterial Blood pH 7.283 (7.350-7.450) Arterial Blood Partial Pressure CO2 70.4 mmHg (35.0-45.0) *H Arterial Blood Partial Pressure O2 59.9 mmHg (75.0-100.0) L Arterial Blood HCO3 32.6 mmol/L (22.0-26.0) H Arterial Blood Oxygen Saturation 91.3 % (95-100) L Arterial Blood Base Excess 3.7 (-2-2) H Mehdi Test Positive Current Medications Medications (Trade) Dose Ordered Sig/Fabiano Route PRN Reason Start Time Stop Time Status Last Admin Dose Admin Acetaminophen (Tylenol) 650 mg Q4H PRN NG Temp >100.5 08/03/20 04:15 09/02/20 04:14 08/05/20 14:28 Acetaminophen (Tylenol) 650 mg Q4H PRN RECTAL Temp >100.5 08/01/20 20:30 08/31/20 20:29 08/02/20 10:28 Albuterol Sulfate (Proventil MDI) 2 puff Q4H PRN INH Shortness of Breath 07/29/20 22:45 10/27/20 22:44 Cetylpyridinium Chloride (Cepacol) 1 lozg Q2H PRN [place] For Cough 07/30/20 21:00 10/28/20 20:59 08/01/20 08:47 Clonidine HCl (Catapres Tab) 0.1 mg Q2H PRN ORAL SBP > 170mmHg 08/04/20 09:45 11/02/20 09:44 08/06/20 06:32 Dextrose (Dextrose 50%) 25 ml Q30M PRN IV Hypoglycemia 08/06/20 10:45 11/04/20 10:44 Dextrose (Dextrose 50%) 50 ml Q30M PRN IV Hypoglycemia 08/06/20 10:45 11/04/20 10:44 Diltiazem HCl (Cardizem Tab) 60 mg EVERY 8 HOURS ORAL 08/05/20 14:00 09/03/20 13:59 08/06/20 05:18 Docusate Sodium (Colace) 100 mg TWICE A DAY ORAL 08/06/20 18:00 09/05/20 17:59 Enoxaparin Sodium (Lovenox) 30 mg DAILY SUBQ 08/02/20 10:00 10/31/20 09:59 08/06/20 09:18 Guaifenesin/ Dextromethorphan (Robitussin DM Syrup) 15 ml Q6H PRN ORAL For Cough 07/31/20 08:30 10/29/20 08:29 08/01/20 08:47 Insulin Aspart (NovoLOG) Q6HR SUBQ 08/06/20 12:00 11/04/20 11:59 Methylprednisolone Sodium Succinate (Solu-MEDROL) 40 mg EVERY 12 HOURS IVP 08/04/20 12:30 11/02/20 12:29 08/06/20 09:16 Midazolam HCl 100 mg/Sodium Chloride 200 ml @ 0 mls/hr Q24H PRN IV For Anxiety 08/06/20 00:45 08/08/20 00:45 08/06/20 02:00 Pantoprazole (Protonix) 40 mg DAILY IVP 08/06/20 10:00 09/05/20 09:59 08/06/20 09:19 Polyethylene Glycol (Miralax) 17 gm BEDTIME ORAL 08/06/20 21:00 09/05/20 20:59 Sodium Chloride 1,000 ml @ 100 mls/hr Q10H IV 08/05/20 08:45 09/04/20 08:44 08/06/20 09:39 Santosh Cheek MD Aug 06, 2020 10:50
--- NOTE | 2020-08-06 10:55 | NUR ---
NURSE NOTES:Called pharmacy as new order for insulin. Requested insuln pen for patient.
--- NOTE | 2020-08-06 11:07 | NUR ---
RADIOLOGY DEPT., CHEST X-RAY DONE.-P.DYE
--- NOTE | 2020-08-06 11:38 | Nephrology Progress Note ---
Assessment/Plan Problem List: (1) ERIKA (acute kidney injury) (2) Shock liver (3) Acute respiratory failure with hypoxia (4) Bilateral pneumonia Assessment Acute renal failure. Most likely due to hypotensive and shock from 8 PM last night to 5 AM this morning. Hyperkalemia. Acute hypoxic respiratory failure. Pneumonia with COVID-19. Elevated transaminase, most likely shock liver. Plan August 06: Labs reviewed. Serum potassium 5.2. Serum sodium 152. Will change IV to D5W. Will start with the Levemir 10 mg nightly. August 05: Labs reviewed. Renal parameters improving. LFTs gradually improving. IV changed to half-normal saline. Continue to monitor blood sugar. Continue to monitor renal parameters. Patient full code. Cardizem dose increased. August 04: Renal parameters improving. LFTs remain elevated. Hemodynamically stable. Continue to monitor renal parameters. Continue per consultants. Discussed with CARLOS Greene. August 03: Patient intubated on ventilator. Renal parameters worsening. LFTs elevated. Patient is deteriorating. Will consider dialysis treatment if no reversal of kidney failure. Discussed with CARLOS Alexis. Previously: Albumin bolus Increase IV fluid Kayexalate for high potassium Monitor renal parameters Subjective ROS Limited/Unobtainable: Yes Objective Objective Last 24 Hour Vital Signs Date Time Temp Pulse Resp B/P (MAP) Pulse Ox O2 Delivery O2 Flow Rate FiO2 08/06/20 10:53 119 25 158/79 (105) 93 08/06/20 10:45 121 25 100 08/06/20 10:00 125 30 169/81 (110) 90 08/06/20 09:00 99.4 118 27 161/77 (105) 91 08/06/20 08:00 119 08/06/20 08:00 Mechanical Ventilator 08/06/20 08:00 121 29 174/88 (116) 92 08/06/20 08:00 100 08/06/20 07:09 114 27 100 08/06/20 07:00 118 27 168/85 (112) 90 08/06/20 06:32 171/79 08/06/20 06:00 116 27 175/85 (115) 91 08/06/20 05:18 112 163/81 08/06/20 05:00 117 31 166/81 (109) 08/06/20 05:00 31 100 08/06/20 04:00 114 08/06/20 04:00 99.9 114 25 169/84 (112) 94 08/06/20 04:00 100 08/06/20 04:00 25 Mechanical Ventilator 100 08/06/20 04:00 Mechanical Ventilator 08/06/20 03:15 114 25 100 08/06/20 03:00 23 Mechanical Ventilator 100 08/06/20 03:00 112 23 166/81 (109) 94 08/06/20 02:00 108 22 153/75 (101) 94 08/06/20 02:00 23 Mechanical Ventilator 100 08/06/20 02:00 22 100 08/06/20 01:00 23 Mechanical Ventilator 100 08/06/20 01:00 107 22 152/74 (100) 94 08/06/20 00:00 23 Mechanical Ventilator 100 08/06/20 00:00 110 08/06/20 00:00 99.3 110 23 149/75 (99) 94 08/06/20 00:00 Mechanical Ventilator 08/05/20 23:00 25 100 08/05/20 23:00 118 25 169/87 (114) 92 08/05/20 23:00 120 26 100 08/05/20 22:00 116 25 164/78 (106) 92 08/05/20 22:00 25 Mechanical Ventilator 100 08/05/20 21:22 115 169/86 08/05/20 21:00 25 Mechanical Ventilator 100 08/05/20 21:00 115 25 162/81 (108) 92 08/05/20 20:00 100 08/05/20 20:00 Mechanical Ventilator 08/05/20 20:00 22 Mechanical Ventilator 100 08/05/20 20:00 114 08/05/20 20:00 98.2 112 24 159/77 (104) 92 08/05/20 19:12 109 22 100 08/05/20 19:00 23 Mechanical Ventilator 100 08/05/20 19:00 110 23 153/76 (101) 94 08/05/20 18:00 108 22 141/73 (95) 93 08/05/20 17:30 109 22 145/72 (96) 93 08/05/20 17:15 111 22 148/73 (98) 93 08/05/20 17:00 114 23 151/72 (98) 93 08/05/20 17:00 23 Mechanical Ventilator 08/05/20 17:00 112 23 148/72 (97) 92 08/05/20 16:45 116 22 145/77 (99) 93 08/05/20 16:30 117 23 145/77 (99) 92 08/05/20 16:30 121 26 158/77 (104) 92 08/05/20 16:28 25 Mechanical Ventilator 08/05/20 16:15 117 25 147/66 (93) 92 08/05/20 16:00 117 08/05/20 16:00 100 08/05/20 16:00 108 22 145/72 (96) 93 08/05/20 16:00 Mechanical Ventilator 08/05/20 16:00 99.0 114 25 158/76 (103) 92 08/05/20 15:45 111 25 142/71 (94) 93 08/05/20 15:30 113 25 145/69 (94) 93 08/05/20 15:15 116 25 149/71 (97) 93 08/05/20 15:00 116 25 151/72 (98) 92 08/05/20 15:00 24 Mechanical Ventilator 08/05/20 14:58 99.0 08/05/20 14:28 122 170/85 08/05/20 14:28 26 Mechanical Ventilator 08/05/20 14:15 123 26 170/85 (113) 92 08/05/20 14:00 26 Mechanical Ventilator 08/05/20 14:00 123 25 167/91 (116) 92 08/05/20 13:45 122 26 100 08/05/20 13:00 122 25 165/85 (111) 91 08/05/20 13:00 27 Mechanical Ventilator 08/05/20 12:45 122 27 162/86 (111) 91 08/05/20 12:30 119 25 158/85 (109) 91 08/05/20 12:15 120 26 167/85 (112) 91 08/05/20 12:00 99.6 117 23 169/84 (112) 93 08/05/20 12:00 100 08/05/20 12:00 26 Mechanical Ventilator 08/05/20 12:00 119 08/05/20 12:00 Mechanical Ventilator Intake and Output 08/05/20 08/06/20 19:00 07:00 Intake Total 1623 ml 1902 ml Output Total 550 ml 745 ml Balance 1073 ml 1157 ml IV Total 1188 ml 1362 ml Tube Feeding 420 ml 420 ml Other 15 ml 120 ml Output Urine Total 550 ml 745 ml Stool Total 0 ml Laboratory Tests 08/06/20 04:20: White Blood Count 19.2H, Red Blood Count 4.01L, Hemoglobin 13.0L, Hematocrit 40.4L, Mean Corpuscular Volume 101H, Mean Corpuscular Hemoglobin 32.4H, Mean Corpuscular Hemoglobin Concent 32.2, Red Cell Distribution Width 12.9, Platelet Count 118L, Mean Platelet Volume 6.8, Neutrophils (%) (Auto) , Lymphocytes (%) (Auto) , Monocytes (%) (Auto) , Eosinophils (%) (Auto) , Basophils (%) (Auto) , Differential Total Cells Counted 100, Neutrophils % (Manual) 96H, Lymphocytes % (Manual) 1L, Monocytes % (Manual) 3, Eosinophils % (Manual) 0, Basophils % (Manual) 0, Band Neutrophils 0, Platelet Estimate DecreasedL, Platelet Morphology Normal, Macrocytosis 1+, Sodium Level 152H, Potassium Level 5.2H, Chloride Level 117H, Carbon Dioxide Level 33H, Anion Gap 2L, Blood Urea Nitrogen 63H, Creatinine 2.0H, Estimat Glomerular Filtration Rate 33.7, Glucose Level 198H, Uric Acid 4.5, Calcium Level 8.2L, Phosphorus Level 3.1, Magnesium Level 3.5H, Total Bilirubin 0.5, Aspartate Amino Transf (AST/SGOT) 152H, Alanine Aminotransferase (ALT/SGPT) 953H, Alkaline Phosphatase 209H, C-Reactive Protein, Quantitative 2.2H, Pro-B-Type Natriuretic Peptide 3393H, Total Protein 5.6L, Albumin 2.2L, Globulin 3.4, Albumin/Globulin Ratio 0.6L 08/06/20 07:40: Arterial Blood pH 7.283L, Arterial Blood Partial Pressure CO2 70.4*H, Arterial Blood Partial Pressure O2 59.9L, Arterial Blood HCO3 32.6H, Arterial Blood Oxygen Saturation 91.3L, Arterial Blood Base Excess 3.7H, Mehdi Test Positive Height (Feet): 5 Height (Inches): 5.00 Weight (Pounds): 160 General Appearance: no apparent distress EENT: other - Intubated on ventilator Cardiovascular: tachycardia Respiratory/Chest: decreased breath sounds Abdomen: distended Fouladian,Jared MD Aug 06, 2020 11:38
--- NOTE | 2020-08-06 12:32 | Diagnostic Imaging Report ---
Indication: Cough Technique: One view of the chest Comparison: 08/04/2020 Findings: Stable tube positions. Bilateral infiltrates are unchanged. Impression: Unchanged, over one day, findings as above.
--- NOTE | 2020-08-06 13:05 | NUR ---
NURSE NOTES:Called pharmacy again as insulin pen for patient has still not arrived. Scheduled 1200 insulin not administered due to lack of insulin.
--- NOTE | 2020-08-06 13:18 | NUR ---
NURSE NOTES:Patient has fever of 100.9 Tylenol given.
[2020-08-06] MEDS: Acetaminophen 650mg/20.3ml NG PRN ×2 (13:24→20:27)
[2020-08-06] MEDS: NovoLOG Insulin Flexpen SUBQ SCH ×3 (13:31→23:22)
--- NOTE | 2020-08-06 14:10 | NUR ---
NURSE NOTES:active cooling measures in place with ice packs applied to bilateral axilla and groin.
--- NOTE | 2020-08-06 14:47 | NUR ---
Respiratory Care SpecialistSwitch House Operator SI: Respiratory failure,, ETT/vent support COVID PNA T-99.1, HR 113, RR-26, BP 157/75, O2 sat 90% AC 16, TV 500, PEEP 5.0 FiO2 100% WBC 19.2, NA+ 152. K+ 5.2, BUN 63, Creatinine 2.0 IS: Solumedrol IV q 12 h Midazolam gtt Albumin Human IV Lovenox SQ QD Protonix IVP QD ICU Status
[2020-08-06] MEDS: Docusate 100mg cap ORAL SCH (17:14)
--- NOTE | 2020-08-06 17:22 | Surgery Progress Note ---
Surgery Progress Note Subjective Additional Comments ill appearing on support peep 8 fi02 100% sat in the 90's cont weaning Objective Last 24 Hour Vital Signs Date Time Temp Pulse Resp B/P (MAP) Pulse Ox O2 Delivery O2 Flow Rate FiO2 08/06/20 17:14 112 158/81 08/06/20 17:00 100.0 112 26 158/81 (106) 93 08/06/20 16:00 109 23 154/73 (100) 94 08/06/20 16:00 100 08/06/20 16:00 109 08/06/20 15:46 Mechanical Ventilator 08/06/20 15:00 100.2 116 23 156/71 (99) 95 08/06/20 14:56 121 23 100 08/06/20 14:00 101.3 117 24 151/71 (97) 93 08/06/20 13:54 101.3 08/06/20 13:00 100.9 122 24 157/80 (105) 93 08/06/20 12:28 120 153/77 08/06/20 12:00 117 23 153/77 (102) 94 08/06/20 12:00 120 08/06/20 11:56 100 08/06/20 11:56 Mechanical Ventilator 08/06/20 10:53 119 25 158/79 (105) 93 08/06/20 10:45 121 25 100 08/06/20 10:00 125 30 169/81 (110) 90 08/06/20 09:00 99.4 118 27 161/77 (105) 91 08/06/20 08:00 119 08/06/20 08:00 Mechanical Ventilator 08/06/20 08:00 121 29 174/88 (116) 92 08/06/20 08:00 100 08/06/20 07:09 114 27 100 08/06/20 07:00 118 27 168/85 (112) 90 08/06/20 06:32 171/79 08/06/20 06:00 116 27 175/85 (115) 91 08/06/20 05:18 112 163/81 08/06/20 05:00 117 31 166/81 (109) 08/06/20 05:00 31 100 08/06/20 04:00 114 08/06/20 04:00 99.9 114 25 169/84 (112) 94 08/06/20 04:00 100 08/06/20 04:00 25 Mechanical Ventilator 100 08/06/20 04:00 Mechanical Ventilator 08/06/20 03:15 114 25 100 08/06/20 03:00 23 Mechanical Ventilator 100 08/06/20 03:00 112 23 166/81 (109) 94 08/06/20 02:00 108 22 153/75 (101) 94 08/06/20 02:00 23 Mechanical Ventilator 100 08/06/20 02:00 22 100 08/06/20 01:00 23 Mechanical Ventilator 100 08/06/20 01:00 107 22 152/74 (100) 94 08/06/20 00:00 23 Mechanical Ventilator 100 08/06/20 00:00 110 08/06/20 00:00 99.3 110 23 149/75 (99) 94 08/06/20 00:00 Mechanical Ventilator 08/05/20 23:00 25 100 08/05/20 23:00 118 25 169/87 (114) 92 08/05/20 23:00 120 26 100 08/05/20 22:00 116 25 164/78 (106) 92 08/05/20 22:00 25 Mechanical Ventilator 100 08/05/20 21:22 115 169/86 08/05/20 21:00 25 Mechanical Ventilator 100 08/05/20 21:00 115 25 162/81 (108) 92 08/05/20 20:00 100 08/05/20 20:00 Mechanical Ventilator 08/05/20 20:00 22 Mechanical Ventilator 100 08/05/20 20:00 114 08/05/20 20:00 98.2 112 24 159/77 (104) 92 08/05/20 19:12 109 22 100 08/05/20 19:00 23 Mechanical Ventilator 100 08/05/20 19:00 110 23 153/76 (101) 94 08/05/20 18:00 108 22 141/73 (95) 93 08/05/20 17:30 109 22 145/72 (96) 93 I&O Intake and Output 08/05/20 08/06/20 19:00 07:00 Intake Total 1623 ml 1902 ml Output Total 550 ml 745 ml Balance 1073 ml 1157 ml IV Total 1188 ml 1362 ml Tube Feeding 420 ml 420 ml Other 15 ml 120 ml Output Urine Total 550 ml 745 ml Stool Total 0 ml Dressing: saturated Cardiovascular: RSR Respiratory: decreased breath sounds Abdomen: non-tender, present bowel sounds, non-distended Extremities: no cyanosis Laboratory Tests Test 08/06/20 04:20 08/06/20 07:40 08/06/20 12:06 08/06/20 17:01 White Blood Count 19.2 K/UL (4.8-10.8) H Red Blood Count 4.01 M/UL (4.70-6.10) L Hemoglobin 13.0 G/DL (14.2-18.0) L Hematocrit 40.4 % (42.0-52.0) L Mean Corpuscular Volume 101 FL (80-99) H Mean Corpuscular Hemoglobin 32.4 PG (27.0-31.0) H Mean Corpuscular Hemoglobin Concent 32.2 G/DL (32.0-36.0) Red Cell Distribution Width 12.9 % (11.6-14.8) Platelet Count 118 K/UL (150-450) L Mean Platelet Volume 6.8 FL (6.5-10.1) Neutrophils (%) (Auto) % (45.0-75.0) Lymphocytes (%) (Auto) % (20.0-45.0) Monocytes (%) (Auto) % (1.0-10.0) Eosinophils (%) (Auto) % (0.0-3.0) Basophils (%) (Auto) % (0.0-2.0) Differential Total Cells Counted 100 Neutrophils % (Manual) 96 % (45-75) H Lymphocytes % (Manual) 1 % (20-45) L Monocytes % (Manual) 3 % (1-10) Eosinophils % (Manual) 0 % (0-3) Basophils % (Manual) 0 % (0-2) Band Neutrophils 0 % (0-8) Platelet Estimate Decreased L Platelet Morphology Normal Macrocytosis 1+ Sodium Level 152 MMOL/L (136-145) H Potassium Level 5.2 MMOL/L (3.5-5.1) H Chloride Level 117 MMOL/L (98-107) H Carbon Dioxide Level 33 MMOL/L (21-32) H Anion Gap 2 mmol/L (5-15) L Blood Urea Nitrogen 63 mg/dL (7-18) H Creatinine 2.0 MG/DL (0.55-1.30) H Estimat Glomerular Filtration Rate 33.7 mL/min (>60) Glucose Level 198 MG/DL (74-106) H Uric Acid 4.5 MG/DL (2.6-7.2) Calcium Level 8.2 MG/DL (8.5-10.1) L Phosphorus Level 3.1 MG/DL (2.5-4.9) Magnesium Level 3.5 MG/DL (1.8-2.4) H Total Bilirubin 0.5 MG/DL (0.2-1.0) Aspartate Amino Transf (AST/SGOT) 152 U/L (15-37) H Alanine Aminotransferase (ALT/SGPT) 953 U/L (12-78) H Alkaline Phosphatase 209 U/L (46-116) H C-Reactive Protein, Quantitative 2.2 mg/dL (0.00-0.90) H Pro-B-Type Natriuretic Peptide 3393 pg/mL (0-125) H Total Protein 5.6 G/DL (6.4-8.2) L Albumin 2.2 G/DL (3.4-5.0) L Globulin 3.4 g/dL Albumin/Globulin Ratio 0.6 (1.0-2.7) L Arterial Blood pH 7.283 (7.350-7.450) Arterial Blood Partial Pressure CO2 70.4 mmHg (35.0-45.0) *H Arterial Blood Partial Pressure O2 59.9 mmHg (75.0-100.0) L Arterial Blood HCO3 32.6 mmol/L (22.0-26.0) H Arterial Blood Oxygen Saturation 91.3 % (95-100) L Arterial Blood Base Excess 3.7 (-2-2) H Mehdi Test Positive POC Whole Blood Glucose 183 MG/DL (74-106) H 244 MG/DL (74-106) H Plan Problems: (1) Hypoxia (2) Bilateral pneumonia (3) Acute respiratory failure with hypoxia Assessment & Plan: ards covid negative as per pulm id input appreciated abd pain likely cramping indigestion from ill ness ppi ordered okay for diet monitor intake am labs will follow with exam and recs acute decline intubated in ICU on vent liver insufficiency acute hepatic in sufficiency renal insufficiency no acute surgical intervention needs resuscitation meds reviewed (4) Bradycardia (5) Malnutrition Assessment & Plan: DAILY ESTIMATED NEEDS: Needs based on [facility] 64.5kg abw 22-28 kcals/kg 7192-3317 total kcals 1.2-2 g protein/kg 77-129 g total protein 25-30 mL/kg 0952-9988 total fluid mLs NUTRITION DIAGNOSIS: Altered nutrition related lab values related to clinical status as evidenced by elev LD(665), elev WBC(trending down 17.7), elev BG(132-176), elevated lytes(K, phos, mg), elev renal labs ([id number], creat 3.2), elev LFT's ENTERAL NUTRITION RECOMMENDATIONS: As medically able, rec non oral feeds: NEPRO @35ml/hr x24 hrs to provide 840ml, 1512 kcal, 68g pro, 611ml free H2O - With hemodynamic stability, rec OGt feeds to meet est needs. - Start Nepro @15ml/hr for 6 hrs, advance as tolerated 10ml/hr q4-6 hrs to goal - Flush per MD. HOB over 30 degrees - When tolerating TF at goal, add Prosource 1 pack daily to better meet est pro needs. ADDITIONAL RECOMMENDATIONS: 1) recalibrate bed scale wt for accurate CBW 2) Monitor BG, need for NISS 3) TF recs as above when stable for feeds . Vern Quevedo Aug 06, 2020 17:22
--- NOTE | 2020-08-06 17:25 | Pulmonology Progress Note ---
Subjective ROS Limited/Unobtainable: Yes Interval Events: Intubated 08/01/20 Constitutional: Denies: fever HEENT: Repors: no symptoms Respiratory: Reports: no symptoms Cardiovascular: Reports: no symptoms Gastrointestinal/Abdominal: Reports: no symptoms; Denies: nausea, vomiting, diarrhea Musculoskeletal: Denies: pain Allergies: Coded Allergies: No Known Allergies (Unverified , 07/29/20) All Systems: reviewed and negative except above Objective Last 24 Hour Vital Signs Date Time Temp Pulse Resp B/P (MAP) Pulse Ox O2 Delivery O2 Flow Rate FiO2 08/06/20 17:00 100.0 112 26 158/81 (106) 93 08/06/20 16:00 109 23 154/73 (100) 94 08/06/20 16:00 100 08/06/20 16:00 109 08/06/20 15:46 Mechanical Ventilator 08/06/20 15:00 100.2 116 23 156/71 (99) 95 08/06/20 14:56 121 23 100 08/06/20 14:00 101.3 117 24 151/71 (97) 93 08/06/20 13:54 101.3 08/06/20 13:00 100.9 122 24 157/80 (105) 93 08/06/20 12:28 120 153/77 08/06/20 12:00 117 23 153/77 (102) 94 08/06/20 12:00 120 08/06/20 11:56 100 08/06/20 11:56 Mechanical Ventilator 08/06/20 10:53 119 25 158/79 (105) 93 08/06/20 10:45 121 25 100 08/06/20 10:00 125 30 169/81 (110) 90 08/06/20 09:00 99.4 118 27 161/77 (105) 91 08/06/20 08:00 119 08/06/20 08:00 Mechanical Ventilator 08/06/20 08:00 121 29 174/88 (116) 92 08/06/20 08:00 100 08/06/20 07:09 114 27 100 08/06/20 07:00 118 27 168/85 (112) 90 08/06/20 06:32 171/79 08/06/20 06:00 116 27 175/85 (115) 91 08/06/20 05:18 112 163/81 08/06/20 05:00 117 31 166/81 (109) 08/06/20 05:00 31 100 08/06/20 04:00 114 08/06/20 04:00 99.9 114 25 169/84 (112) 94 08/06/20 04:00 100 08/06/20 04:00 25 Mechanical Ventilator 100 08/06/20 04:00 Mechanical Ventilator 08/06/20 03:15 114 25 100 08/06/20 03:00 23 Mechanical Ventilator 100 08/06/20 03:00 112 23 166/81 (109) 94 08/06/20 02:00 108 22 153/75 (101) 94 08/06/20 02:00 23 Mechanical Ventilator 100 08/06/20 02:00 22 100 08/06/20 01:00 23 Mechanical Ventilator 100 08/06/20 01:00 107 22 152/74 (100) 94 08/06/20 00:00 23 Mechanical Ventilator 100 08/06/20 00:00 110 08/06/20 00:00 99.3 110 23 149/75 (99) 94 08/06/20 00:00 Mechanical Ventilator 08/05/20 23:00 25 100 08/05/20 23:00 118 25 169/87 (114) 92 08/05/20 23:00 120 26 100 08/05/20 22:00 116 25 164/78 (106) 92 08/05/20 22:00 25 Mechanical Ventilator 100 08/05/20 21:22 115 169/86 08/05/20 21:00 25 Mechanical Ventilator 100 08/05/20 21:00 115 25 162/81 (108) 92 08/05/20 20:00 100 08/05/20 20:00 Mechanical Ventilator 08/05/20 20:00 22 Mechanical Ventilator 100 08/05/20 20:00 114 08/05/20 20:00 98.2 112 24 159/77 (104) 92 08/05/20 19:12 109 22 100 08/05/20 19:00 23 Mechanical Ventilator 100 08/05/20 19:00 110 23 153/76 (101) 94 08/05/20 18:00 108 22 141/73 (95) 93 08/05/20 17:30 109 22 145/72 (96) 93 Intake and Output 08/05/20 08/06/20 19:00 07:00 Intake Total 1623 ml 1902 ml Output Total 550 ml 745 ml Balance 1073 ml 1157 ml IV Total 1188 ml 1362 ml Tube Feeding 420 ml 420 ml Other 15 ml 120 ml Output Urine Total 550 ml 745 ml Stool Total 0 ml General Appearance: no acute distress HEENT: normocephalic, atraumatic Respiratory: lungs clear Cardiovascular: normal rate, regular rhythm Abdomen: soft, non tender Microbiology Date/Time Source Procedure Growth Status 08/05/20 18:00 Sputum Expectorated Gram Stain - Final Resulted 08/05/20 18:00 Sputum Expectorated Sputum Culture Pending Resulted Laboratory Tests 08/06/20 04:20: White Blood Count 19.2H, Red Blood Count 4.01L, Hemoglobin 13.0L, Hematocrit 40.4L, Mean Corpuscular Volume 101H, Mean Corpuscular Hemoglobin 32.4H, Mean Corpuscular Hemoglobin Concent 32.2, Red Cell Distribution Width 12.9, Platelet Count 118L, Mean Platelet Volume 6.8, Neutrophils (%) (Auto) , Lymphocytes (%) (Auto) , Monocytes (%) (Auto) , Eosinophils (%) (Auto) , Basophils (%) (Auto) , Differential Total Cells Counted 100, Neutrophils % (Manual) 96H, Lymphocytes % (Manual) 1L, Monocytes % (Manual) 3, Eosinophils % (Manual) 0, Basophils % (Manual) 0, Band Neutrophils 0, Platelet Estimate DecreasedL, Platelet Morphology Normal, Macrocytosis 1+, Sodium Level 152H, Potassium Level 5.2H, Chloride Level 117H, Carbon Dioxide Level 33H, Anion Gap 2L, Blood Urea Nitrogen 63H, Creatinine 2.0H, Estimat Glomerular Filtration Rate 33.7, Glucose Level 198H, Uric Acid 4.5, Calcium Level 8.2L, Phosphorus Level 3.1, Magnesium Level 3.5H, Total Bilirubin 0.5, Aspartate Amino Transf (AST/SGOT) 152H, Alanine Aminotransferase (ALT/SGPT) 953H, Alkaline Phosphatase 209H, C-Reactive Protein, Quantitative 2.2H, Pro-B-Type Natriuretic Peptide 3393H, Total Protein 5.6L, Albumin 2.2L, Globulin 3.4, Albumin/Globulin Ratio 0.6L 08/06/20 07:40: Arterial Blood pH 7.283L, Arterial Blood Partial Pressure CO2 70.4*H, Arterial Blood Partial Pressure O2 59.9L, Arterial Blood HCO3 32.6H, Arterial Blood Oxygen Saturation 91.3L, Arterial Blood Base Excess 3.7H, Mehdi Test Positive 08/06/20 12:06: POC Whole Blood Glucose 183H 08/06/20 17:01: POC Whole Blood Glucose 244H Current Medications Medications (Trade) Dose Ordered Sig/Fabiano Route PRN Reason Start Time Stop Time Status Last Admin Dose Admin Acetaminophen (Tylenol) 650 mg Q4H PRN NG Temp >100.5 08/03/20 04:15 09/02/20 04:14 08/06/20 13:24 Acetaminophen (Tylenol) 650 mg Q4H PRN RECTAL Temp >100.5 08/01/20 20:30 08/31/20 20:29 08/02/20 10:28 Albuterol Sulfate (Proventil MDI) 2 puff Q4H PRN INH Shortness of Breath 07/29/20 22:45 10/27/20 22:44 Cetylpyridinium Chloride (Cepacol) 1 lozg Q2H PRN [place] For Cough 07/30/20 21:00 10/28/20 20:59 08/01/20 08:47 Clonidine HCl (Catapres Tab) 0.1 mg Q2H PRN ORAL SBP > 170mmHg 08/04/20 09:45 11/02/20 09:44 08/06/20 06:32 Dextrose 1,000 ml @ 100 mls/hr Q10H IV 08/06/20 12:15 09/05/20 12:14 08/06/20 12:27 Dextrose (Dextrose 50%) 25 ml Q30M PRN IV Hypoglycemia 08/06/20 10:45 11/04/20 10:44 Dextrose (Dextrose 50%) 50 ml Q30M PRN IV Hypoglycemia 08/06/20 10:45 11/04/20 10:44 Diltiazem HCl (Cardizem Tab) 60 mg EVERY 6 HOURS ORAL 08/06/20 12:15 09/03/20 12:14 08/06/20 12:28 Docusate Sodium (Colace) 100 mg TWICE A DAY ORAL 08/06/20 18:00 09/05/20 17:59 Enoxaparin Sodium (Lovenox) 30 mg DAILY SUBQ 08/02/20 10:00 10/31/20 09:59 08/06/20 09:18 Guaifenesin/ Dextromethorphan (Robitussin DM Syrup) 15 ml Q6H PRN ORAL For Cough 07/31/20 08:30 10/29/20 08:29 08/01/20 08:47 Insulin Aspart (NovoLOG) Q6HR SUBQ 08/06/20 12:00 11/04/20 11:59 08/06/20 13:31 Insulin Detemir (Levemir) 10 units Q12HR SUBQ 08/06/20 21:00 11/04/20 20:59 Methylprednisolone Sodium Succinate (Solu-MEDROL) 40 mg EVERY 12 HOURS IVP 08/04/20 12:30 11/02/20 12:29 08/06/20 09:16 Midazolam HCl 100 mg/Sodium Chloride 200 ml @ 0 mls/hr Q24H PRN IV For Anxiety 08/06/20 00:45 08/08/20 00:45 08/06/20 02:00 Pantoprazole (Protonix) 40 mg DAILY IVP 08/06/20 10:00 09/05/20 09:59 08/06/20 09:19 Polyethylene Glycol (Miralax) 17 gm BEDTIME ORAL 08/06/20 21:00 09/05/20 20:59 Assessment/Plan Assessment/Plan 1. Respiratory Failure - intubated 08/01/20 - oxygenating better - Continue PEEP 12; now decreased to 5 - continue 100% Fio2; will attempt to decrease further 2. Hyponatremia - per primary MD 3. Hyperglycemia - BG control 5. Pneumonia - abx per ID - on dexamethasone (07/30-) - now on remdesivir per ID (08/01-) 6. COVID-19 rapid negative - COVID-19 PCR positive 7. Elevated inflammatory markers; ferritin, D-Dimer - likely secondary to #5 - On Lovenox Discussed with Milton Arambula MD Aug 06, 2020 17:25
--- NOTE | 2020-08-06 19:20 | NUR ---
NURSE HAND-OFF REPORT: Latest Vital Signs: Temperature 100.0 , Pulse 117 , B/P 161 /82 , Respiratory Rate 28 , O2 SAT 92 , Mechanical Ventilator, O2 Flow Rate . Vital Sign Comment: EKG Rhythm: Sinus Tachycardia Rhythm change?: N Notified?: Moi Guzman MD Response: Latest Orozco Fall Score: 50 Fall Risk: High Risk Safety Measures: Call light Within Reach, Bed Alarm Zone 1, Side Rails Side Rails x2, Bed position Low and Locked. Fall Precautions: Yellow Socks Yellow Gown Door Sign Patient Fall Education Report given to CARLOS Samuels.
--- NOTE | 2020-08-06 19:30 | NUR ---
NURSE NOTES: Received pt in bed, unresponsive even to painful stimulation but still has an intact gag reflex. Pt on vent via ETT tolerating current vent settings saturating between 90-94%. OGT in place with Nepro running at 35cc/hr with no residuals noted. D5W infusing at 100cc/hr via LFA #20. [place] cath in place draining yellow urine. VS stable and pt is sinus tach on the monitor.
[2020-08-06] MEDS: Miralax 17gm pkt ORAL SCH (20:27)
[2020-08-06] MEDS ORDERED: Levemir Flexpen SUBQ SCH (21:00)
--- NOTE | 2020-08-06 22:00 | NUR ---
NURSE NOTES: Pt's neuro status remains unchanged. pt repositioned for comfort. VS remain stable.
[2020-08-07] VITALS (24 sets, daily range): BP systolic 151–184; BP diastolic 67–107
--- NOTE | 2020-08-07 | NUR ---
NURSE NOTES: Pt's condition remains unchanged. Pt now afebrile. VS remain satble. Pt is SR on the monitor with frequent PAC's.
--- NOTE | 2020-08-07 02:00 | NUR ---
NURSE NOTES: Pt stable. VS remain stable. Pt repositioned for comfort.
--- NOTE | 2020-08-07 04:00 | NUR ---
NURSE NOTES: Pt remains afebrile and stable with stable VS. Pt remains sinus tach on the monitor.
[2020-08-07] MEDS: NovoLOG Insulin Flexpen SUBQ SCH ×4 (05:15→23:48)
[2020-08-07] MEDS: dilTIAZem HCl 60mg tab ORAL SCH (05:16)
--- NOTE | 2020-08-07 05:45 | NUR ---
Pt stable. AM care given. Pt still does not have a bowel movement.
--- NOTE | 2020-08-07 05:51 | NUR ---
NURSE NOTES: Zahida RAMIREZ calls back. Updated he on [pt's current status with HR between low 100's to low 120's and current BP of 90/48. No new orders given. JOHN Plaza made aware. Addendum: 08/07/20 at 0625 by SUJEY HENRY RN RN Pls disregard. Wrong patient.
[2020-08-07 05:52] LABS: HEMATOCRIT 40.1 % (42.0-52.0); MEAN CORPUSCULAR VOLUME 100 FL (80-99); PLATELET COUNT 142 K/UL (150-450); RED BLOOD COUNT 4.03 M/UL (4.70-6.10); RED CELL DISTRIBUTION WIDTH 12.7 % (11.6-14.8)
[2020-08-07 06:27] LABS: PHOSPHORUS 2.1 MG/DL (2.5-4.9)
[2020-08-07 06:33] LABS: ALBUMIN 2.1 G/DL (3.4-5.0); ALBUMIN/GLOBULIN RATIO 0.6 (1.0-2.7); BILIRUBIN,TOTAL 0.7 MG/DL (0.2-1.0); CALCIUM 7.7 MG/DL (8.5-10.1); CREATININE 1.9 MG/DL (0.55-1.30); POTASSIUM 4.6 MMOL/L (3.5-5.1)
--- NOTE | 2020-08-07 06:39 | Hematology/Onc Progress Note ---
Assessment/Plan Assessment/Plan Assessment and Recs # Leukocytosis with Acute respiratory failure with hypoxia/covid19++ --> wbc 27-->20-->19-->23 --> ABx --> steriods as well --> pulm and ID # Thrombocytopenia is likely related to covid19 --> plt 83-->118 --> trend as needed --> transfuse prn --> hep and hiv pending # Respiratory Failure --> intubated 08/01/20 --> oxygenating better --> Continue PEEP 12; now decreased to 5 # AMs --> as per neuro # Hyponatremia --> per primary MD # Hyperglycemia --> BG control # Pneumonia --> abx per ID --> on dexamethasone (07/30-) --> now on remdesivir per ID (08/01-) # Covid19 with Elevated inflammatory markers; ferritin, D-Dimer --> On Lovenox # Dvt ppx lovenox sq Appreciate consultation and krysta RN Subjective HEENT: Denies: no symptoms, eye pain, blurred vision, tearing, double vision, ear pain, ear discharge, nose pain, nose congestion, throat pain, throat swelling, mouth pain, mouth swelling, other Cardiovascular: Denies: no symptoms, chest pain, edema, irregular heart rate, lightheadedness, palpitations, syncope, other Respiratory: Denies: no symptoms, cough, shortness of breath, SOB with excertion, SOB at rest, sputum, wheezing, other Gastrointestinal/Abdominal: Denies: no symptoms, abdomen distended, abdominal p ain, black stools, tarry stools, blood in stool, constipated, diarrhea, difficulty swallowing, nausea, poor appetite, poor fluid intake, rectal bleeding, vomiting, other Genitourinary: Denies: no symptoms, burning, discharge, frequency, flank pain, hematuria, incontinence, pain, urgency, other Neurologic/Psychiatric: Denies: no symptoms, anxiety, depressed, emotional problems, headache, numbness, paresthesia, pre-existing deficit, seizure, tingling, tremors, weakness, other Endocrine: Denies: no symptoms, excessive sweating, flushing, intolerance to cold, intolerance to heat, increased hunger, increased thirst, increased urine, unexplained weight gain, unexplained weight loss, other Hematologic/Lymphatic: Denies: no symptoms, anemia, easy bleeding, easy bruising, adenopathy, other Allergies: Coded Allergies: No Known Allergies (Unverified , 07/29/20) Subjective 08/06 remains altered, on vent, poorly responsive, as per Rn Sherri, to inform son 08/07 labs noted, on vent, with ogt, meds reviewed, wbc elev, on steriods Objective Objective Current Medications Medications (Trade) Dose Ordered Sig/Fabiano Route PRN Reason Start Time Stop Time Status Last Admin Dose Admin Acetaminophen (Tylenol) 650 mg Q4H PRN NG Temp >100.5 08/03/20 04:15 09/02/20 04:14 08/06/20 20:27 Acetaminophen (Tylenol) 650 mg Q4H PRN RECTAL Temp >100.5 08/01/20 20:30 08/31/20 20:29 08/02/20 10:28 Albuterol Sulfate (Proventil MDI) 2 puff Q4H PRN INH Shortness of Breath 07/29/20 22:45 10/27/20 22:44 Cetylpyridinium Chloride (Cepacol) 1 lozg Q2H PRN [place] For Cough 07/30/20 21:00 10/28/20 20:59 08/01/20 08:47 Clonidine HCl (Catapres Tab) 0.1 mg Q2H PRN ORAL SBP > 170mmHg 08/04/20 09:45 11/02/20 09:44 08/07/20 02:21 Dextrose 1,000 ml @ 100 mls/hr Q10H IV 08/06/20 12:15 09/05/20 12:14 08/06/20 23:01 Dextrose (Dextrose 50%) 25 ml Q30M PRN IV Hypoglycemia 08/06/20 10:45 11/04/20 10:44 Dextrose (Dextrose 50%) 50 ml Q30M PRN IV Hypoglycemia 08/06/20 10:45 11/04/20 10:44 Diltiazem HCl (Cardizem Tab) 60 mg EVERY 6 HOURS ORAL 08/06/20 12:15 09/03/20 12:14 08/07/20 05:16 Docusate Sodium (Colace) 100 mg TWICE A DAY ORAL 08/06/20 18:00 09/05/20 17:59 08/06/20 17:14 Enoxaparin Sodium (Lovenox) 30 mg DAILY SUBQ 08/02/20 10:00 10/31/20 09:59 08/06/20 09:18 Guaifenesin/ Dextromethorphan (Robitussin DM Syrup) 15 ml Q6H PRN ORAL For Cough 07/31/20 08:30 10/29/20 08:29 08/01/20 08:47 Insulin Aspart (NovoLOG) Q6HR SUBQ 08/06/20 12:00 11/04/20 11:59 08/07/20 05:15 Insulin Detemir (Levemir) 20 units Q12HR SUBQ 08/07/20 09:00 11/04/20 20:59 Methylprednisolone Sodium Succinate (Solu-MEDROL) 40 mg EVERY 12 HOURS IVP 08/04/20 12:30 11/02/20 12:29 08/06/20 20:27 Pantoprazole (Protonix) 40 mg DAILY IVP 08/06/20 10:00 09/05/20 09:59 08/06/20 09:19 Polyethylene Glycol (Miralax) 17 gm BEDTIME ORAL 08/06/20 21:00 09/05/20 20:59 08/06/20 20:27 Last 24 Hour Vital Signs Date Time Temp Pulse Resp B/P (MAP) Pulse Ox O2 Delivery O2 Flow Rate FiO2 08/07/20 06:00 103 26 155/79 (104) 93 08/07/20 05:16 123 169/93 08/07/20 05:00 116 30 169/74 (105) 88 08/07/20 04:00 115 08/07/20 04:00 100 08/07/20 04:00 97.9 119 26 151/83 (105) 91 08/07/20 04:00 Mechanical Ventilator 08/07/20 03:20 115 29 100 08/07/20 03:00 121 27 157/84 (108) 89 08/07/20 02:21 181/89 08/07/20 02:00 118 28 171/71 (104) 91 08/07/20 01:00 116 27 167/83 (111) 89 08/07/20 00:00 Mechanical Ventilator 08/07/20 00:00 92 08/07/20 00:00 100 08/07/20 00:00 99.8 112 27 159/67 (97) 91 08/06/20 23:55 118 28 100 08/06/20 23:22 92 154/63 08/06/20 23:00 97 26 162/63 (96) 93 08/06/20 22:00 114 28 164/71 (102) 91 08/06/20 21:00 117 27 166/64 (98) 91 08/06/20 20:57 100.5 08/06/20 20:00 100.5 101 27 149/71 (97) 92 08/06/20 20:00 104 08/06/20 20:00 Mechanical Ventilator 08/06/20 20:00 100 08/06/20 19:00 114 26 Nasal Cannula 100 08/06/20 19:00 100.0 117 28 161/82 (108) 92 08/06/20 18:00 117 28 160/80 (106) 91 08/06/20 17:14 112 158/81 08/06/20 17:00 100.0 112 26 158/81 (106) 93 08/06/20 16:00 109 23 154/73 (100) 94 08/06/20 16:00 100 08/06/20 16:00 109 08/06/20 15:46 Mechanical Ventilator 08/06/20 15:00 100.2 116 23 156/71 (99) 95 08/06/20 14:56 121 23 100 08/06/20 14:00 101.3 117 24 151/71 (97) 93 08/06/20 13:54 101.3 08/06/20 13:00 100.9 122 24 157/80 (105) 93 08/06/20 12:28 120 153/77 08/06/20 12:00 117 23 153/77 (102) 94 08/06/20 12:00 120 08/06/20 11:56 100 08/06/20 11:56 Mechanical Ventilator 08/06/20 10:53 119 25 158/79 (105) 93 08/06/20 10:45 121 25 100 08/06/20 10:00 125 30 169/81 (110) 90 08/06/20 09:00 99.4 118 27 161/77 (105) 91 08/06/20 08:00 119 08/06/20 08:00 Mechanical Ventilator 08/06/20 08:00 121 29 174/88 (116) 92 08/06/20 08:00 100 08/06/20 07:09 114 27 100 08/06/20 07:00 118 27 168/85 (112) 90 08/06/20 06:32 171/79 08/06/20 06:00 116 27 175/85 (115) 91 08/06/20 05:18 112 163/81 08/06/20 05:00 117 31 166/81 (109) 08/06/20 05:00 31 100 08/06/20 04:00 114 08/06/20 04:00 99.9 114 25 169/84 (112) 94 08/06/20 04:00 100 08/06/20 04:00 25 Mechanical Ventilator 100 08/06/20 04:00 Mechanical Ventilator 08/06/20 03:15 114 25 100 08/06/20 03:00 23 Mechanical Ventilator 100 08/06/20 03:00 112 23 166/81 (109) 94 08/06/20 02:00 108 22 153/75 (101) 94 08/06/20 02:00 23 Mechanical Ventilator 100 08/06/20 02:00 22 100 08/06/20 01:00 23 Mechanical Ventilator 100 08/06/20 01:00 107 22 152/74 (100) 94 08/06/20 00:00 23 Mechanical Ventilator 100 08/06/20 00:00 110 08/06/20 00:00 99.3 110 23 149/75 (99) 94 08/06/20 00:00 Mechanical Ventilator 08/05/20 23:00 25 100 08/05/20 23:00 118 25 169/87 (114) 92 08/05/20 23:00 120 26 100 08/05/20 22:00 116 25 164/78 (106) 92 08/05/20 22:00 25 Mechanical Ventilator 100 08/05/20 21:22 115 169/86 08/05/20 21:00 25 Mechanical Ventilator 100 08/05/20 21:00 115 25 162/81 (108) 92 08/05/20 20:00 100 08/05/20 20:00 Mechanical Ventilator 08/05/20 20:00 22 Mechanical Ventilator 100 08/05/20 20:00 114 08/05/20 20:00 98.2 112 24 159/77 (104) 92 08/05/20 19:12 109 22 100 08/05/20 19:00 23 Mechanical Ventilator 100 08/05/20 19:00 110 23 153/76 (101) 94 08/05/20 18:00 108 22 141/73 (95) 93 08/05/20 17:30 109 22 145/72 (96) 93 08/05/20 17:15 111 22 148/73 (98) 93 08/05/20 17:00 114 23 151/72 (98) 93 08/05/20 17:00 23 Mechanical Ventilator 08/05/20 17:00 112 23 148/72 (97) 92 08/05/20 16:45 116 22 145/77 (99) 93 08/05/20 16:30 117 23 145/77 (99) 92 08/05/20 16:30 121 26 158/77 (104) 92 08/05/20 16:28 25 Mechanical Ventilator 08/05/20 16:15 117 25 147/66 (93) 92 08/05/20 16:00 117 08/05/20 16:00 100 08/05/20 16:00 108 22 145/72 (96) 93 08/05/20 16:00 Mechanical Ventilator 08/05/20 16:00 99.0 114 25 158/76 (103) 92 08/05/20 15:45 111 25 142/71 (94) 93 08/05/20 15:30 113 25 145/69 (94) 93 08/05/20 15:15 116 25 149/71 (97) 93 08/05/20 15:00 116 25 151/72 (98) 92 08/05/20 15:00 24 Mechanical Ventilator 08/05/20 14:58 99.0 08/05/20 14:28 122 170/85 08/05/20 14:28 26 Mechanical Ventilator 08/05/20 14:15 123 26 170/85 (113) 92 08/05/20 14:00 26 Mechanical Ventilator 08/05/20 14:00 123 25 167/91 (116) 92 08/05/20 13:45 122 26 100 08/05/20 13:00 122 25 165/85 (111) 91 08/05/20 13:00 27 Mechanical Ventilator 08/05/20 12:45 122 27 162/86 (111) 91 08/05/20 12:30 119 25 158/85 (109) 91 08/05/20 12:15 120 26 167/85 (112) 91 08/05/20 12:00 99.6 117 23 169/84 (112) 93 08/05/20 12:00 100 08/05/20 12:00 26 Mechanical Ventilator 08/05/20 12:00 119 08/05/20 12:00 Mechanical Ventilator 08/05/20 11:00 25 Mechanical Ventilator 08/05/20 10:45 111 23 151/83 (105) 94 08/05/20 10:30 110 22 148/82 (104) 94 08/05/20 10:15 109 22 143/80 (101) 94 08/05/20 10:00 22 Mechanical Ventilator 08/05/20 10:00 110 22 150/79 (102) 93 08/05/20 09:45 111 22 155/80 (105) 94 08/05/20 09:30 112 24 154/79 (104) 93 08/05/20 09:15 112 22 155/79 (104) 93 08/05/20 09:00 99.8 112 22 157/82 (107) 94 08/05/20 09:00 22 Mechanical Ventilator 08/05/20 08:00 113 08/05/20 08:00 115 26 165/88 (113) 94 08/05/20 08:00 100 08/05/20 08:00 Mechanical Ventilator 08/05/20 08:00 25 Mechanical Ventilator 08/05/20 07:59 116 25 100 08/05/20 07:00 24 Mechanical Ventilator 08/05/20 07:00 113 25 155/85 (108) 94 Intake and Output 08/06/20 08/07/20 19:00 07:00 Intake Total 1543 ml 1565 ml Output Total 930 ml 680 ml Balance 613 ml 885 ml IV Total 1123 ml 1000 ml Tube Feeding 420 ml 385 ml Other 180 ml Output Urine Total 930 ml 680 ml Stool Total 0 ml Labs Test 08/04/20 08:50 08/04/20 23:09 08/05/20 03:40 08/06/20 04:20 Lactic Acid Level 2.60 mmol/L (0.4-2.0) 2.80 mmol/L (0.4-2.0) Arterial Blood pH 7.231 (7.350-7.450) Arterial Blood Partial Pressure CO2 64.7 mmHg (35.0-45.0) Arterial Blood Partial Pressure O2 73.5 mmHg (75.0-100.0) Arterial Blood HCO3 26.5 mmol/L (22.0-26.0) Arterial Blood Oxygen Saturation 93.4 % (95-100) Arterial Blood Base Excess -2.3 (-2-2) Mehdi Test Positive White Blood Count 20.0 K/UL (4.8-10.8) 19.2 K/UL (4.8-10.8) Red Blood Count 3.86 M/UL (4.70-6.10) 4.01 M/UL (4.70-6.10) Hemoglobin 12.9 G/DL (14.2-18.0) 13.0 G/DL (14.2-18.0) Hematocrit 39.7 % (42.0-52.0) 40.4 % (42.0-52.0) Mean Corpuscular Volume 103 FL (80-99) 101 FL (80-99) Mean Corpuscular Hemoglobin 33.3 PG (27.0-31.0) 32.4 PG (27.0-31.0) Mean Corpuscular Hemoglobin Concent 32.4 G/DL (32.0-36.0) 32.2 G/DL (32.0-36.0) Red Cell Distribution Width 13.2 % (11.6-14.8) 12.9 % (11.6-14.8) Platelet Count 98 K/UL (150-450) 118 K/UL (150-450) Mean Platelet Volume 7.4 FL (6.5-10.1) 6.8 FL (6.5-10.1) Neutrophils (%) (Auto) % (45.0-75.0) % (45.0-75.0) Lymphocytes (%) (Auto) % (20.0-45.0) % (20.0-45.0) Monocytes (%) (Auto) % (1.0-10.0) % (1.0-10.0) Eosinophils (%) (Auto) % (0.0-3.0) % (0.0-3.0) Basophils (%) (Auto) % (0.0-2.0) % (0.0-2.0) Differential Total Cells Counted 100 100 Neutrophils % (Manual) 87 % (45-75) 96 % (45-75) Lymphocytes % (Manual) 4 % (20-45) 1 % (20-45) Monocytes % (Manual) 9 % (1-10) 3 % (1-10) Eosinophils % (Manual) 0 % (0-3) 0 % (0-3) Basophils % (Manual) 0 % (0-2) 0 % (0-2) Band Neutrophils 0 % (0-8) 0 % (0-8) Platelet Estimate Decreased Decreased Platelet Morphology Normal Normal Anisocytosis 1+ Sodium Level 149 MMOL/L (136-145) 152 MMOL/L (136-145) Potassium Level 5.0 MMOL/L (3.5-5.1) 5.2 MMOL/L (3.5-5.1) Chloride Level 115 MMOL/L (98-107) 117 MMOL/L (98-107) Carbon Dioxide Level 30 MMOL/L (21-32) 33 MMOL/L (21-32) Anion Gap 4 mmol/L (5-15) 2 mmol/L (5-15) Blood Urea Nitrogen 64 mg/dL (7-18) 63 mg/dL (7-18) Creatinine 2.1 MG/DL (0.55-1.30) 2.0 MG/DL (0.55-1.30) Estimat Glomerular Filtration Rate 31.9 mL/min (>60) 33.7 mL/min (>60) Glucose Level 245 MG/DL (74-106) 198 MG/DL (74-106) Uric Acid 4.7 MG/DL (2.6-7.2) 4.5 MG/DL (2.6-7.2) Calcium Level 7.4 MG/DL (8.5-10.1) 8.2 MG/DL (8.5-10.1) Phosphorus Level 3.3 MG/DL (2.5-4.9) 3.1 MG/DL (2.5-4.9) Magnesium Level 3.7 MG/DL (1.8-2.4) 3.5 MG/DL (1.8-2.4) Total Bilirubin 0.6 MG/DL (0.2-1.0) 0.5 MG/DL (0.2-1.0) Direct Bilirubin 0.2 MG/DL (0.0-0.3) Gamma Glutamyl Transpeptidase 219 U/L (5-85) Aspartate Amino Transf (AST/SGOT) 436 U/L (15-37) 152 U/L (15-37) Alanine Aminotransferase (ALT/SGPT) 1488 U/L (12-78) 953 U/L (12-78) Alkaline Phosphatase 235 U/L (46-116) 209 U/L (46-116) Lactate Dehydrogenase 877 U/L (81-234) Total Creatine Kinase 133 U/L (26-308) C-Reactive Protein, Quantitative 3.5 mg/dL (0.00-0.90) 2.2 mg/dL (0.00-0.90) Pro-B-Type Natriuretic Peptide 5656 pg/mL (0-125) 3393 pg/mL (0-125) Total Protein 5.9 G/DL (6.4-8.2) 5.6 G/DL (6.4-8.2) Albumin 2.3 G/DL (3.4-5.0) 2.2 G/DL (3.4-5.0) Globulin 3.6 g/dL 3.4 g/dL Albumin/Globulin Ratio 0.6 (1.0-2.7) 0.6 (1.0-2.7) Hepatitis A IgM Antibody Negative (Negative) Hepatitis B Surface Antigen Negative (Negative) Hepatitis B Core IgM Antibody Negative (Negative) Hepatitis C Antibody <0.1 s/co ratio HIV (1&2) Antibody Rapid Negative (NEGATIVE) Macrocytosis 1+ Test 08/06/20 07:40 08/06/20 12:06 08/06/20 17:01 08/06/20 19:32 Arterial Blood pH 7.283 (7.350-7.450) Arterial Blood Partial Pressure CO2 70.4 mmHg (35.0-45.0) Arterial Blood Partial Pressure O2 59.9 mmHg (75.0-100.0) Arterial Blood HCO3 32.6 mmol/L (22.0-26.0) Arterial Blood Oxygen Saturation 91.3 % (95-100) Arterial Blood Base Excess 3.7 (-2-2) Mehdi Test Positive POC Whole Blood Glucose 183 MG/DL (74-106) 244 MG/DL (74-106) 292 MG/DL (74-106) Test 08/06/20 23:05 08/07/20 04:35 White Blood Count 23.0 K/UL (4.8-10.8) Red Blood Count 4.03 M/UL (4.70-6.10) Hemoglobin 13.0 G/DL (14.2-18.0) Hematocrit 40.1 % (42.0-52.0) Mean Corpuscular Volume 100 FL (80-99) Mean Corpuscular Hemoglobin 32.2 PG (27.0-31.0) Mean Corpuscular Hemoglobin Concent 32.3 G/DL (32.0-36.0) Red Cell Distribution Width 12.7 % (11.6-14.8) Platelet Count 142 K/UL (150-450) Mean Platelet Volume 6.9 FL (6.5-10.1) Neutrophils (%) (Auto) % (45.0-75.0) Lymphocytes (%) (Auto) % (20.0-45.0) Monocytes (%) (Auto) % (1.0-10.0) Eosinophils (%) (Auto) % (0.0-3.0) Basophils (%) (Auto) % (0.0-2.0) Sodium Level 149 MMOL/L (136-145) Potassium Level 4.6 MMOL/L (3.5-5.1) Chloride Level 113 MMOL/L (98-107) Carbon Dioxide Level 34 MMOL/L (21-32) Anion Gap 3 mmol/L (5-15) Blood Urea Nitrogen 73 mg/dL (7-18) Creatinine 1.9 MG/DL (0.55-1.30) Estimat Glomerular Filtration Rate 35.8 mL/min (>60) Glucose Level 272 MG/DL (74-106) Calcium Level 7.7 MG/DL (8.5-10.1) Phosphorus Level 2.1 MG/DL (2.5-4.9) Magnesium Level 3.4 MG/DL (1.8-2.4) Total Bilirubin 0.7 MG/DL (0.2-1.0) Aspartate Amino Transf (AST/SGOT) 86 U/L (15-37) Alanine Aminotransferase (ALT/SGPT) 628 U/L (12-78) Alkaline Phosphatase 211 U/L (46-116) C-Reactive Protein, Quantitative 1.4 mg/dL (0.00-0.90) Pro-B-Type Natriuretic Peptide 2833 pg/mL (0-125) Total Protein 5.5 G/DL (6.4-8.2) Albumin 2.1 G/DL (3.4-5.0) Globulin 3.4 g/dL Albumin/Globulin Ratio 0.6 (1.0-2.7) Height (Feet): 5 Height (Inches): 5.00 Weight (Pounds): 160 Objective Vital Signs Vitals: reviewed, abnormal General Appearance: well appearing, mild distress HEENT: hearing grossly normal, moist mucus membranes Neck: full range of motion, supple Respiratory: ++vent Cardiovascular: normal peripheral pulses, regular rate, rhythm, no murmur Gastrointestinal: non tender, soft, non-distended, no guarding Neurologic: alert, oriented x3, no focal defects Skin: normal color, warm/dry Robin Ornelas MD Aug 07, 2020 06:39
--- NOTE | 2020-08-07 07:00 | NUR ---
NURSE NOTES: Pt's BP 171/89. Pt does not show any signs of distress. Clonidine given as ordered.
--- NOTE | 2020-08-07 07:20 | General Progress Note ---
Subjective Constitutional: Reports: weakness Allergies: Coded Allergies: No Known Allergies (Unverified , 07/29/20) All Systems: reviewed and negative except above Subjective intubated sedated in icu Objective Last 24 Hour Vital Signs Date Time Temp Pulse Resp B/P (MAP) Pulse Ox O2 Delivery O2 Flow Rate FiO2 08/07/20 07:15 171/89 08/07/20 06:00 103 26 155/79 (104) 93 08/07/20 05:16 123 169/93 08/07/20 05:00 116 30 169/74 (105) 88 08/07/20 04:00 115 08/07/20 04:00 100 08/07/20 04:00 97.9 119 26 151/83 (105) 91 08/07/20 04:00 Mechanical Ventilator 08/07/20 03:20 115 29 100 08/07/20 03:00 121 27 157/84 (108) 89 08/07/20 02:21 181/89 08/07/20 02:00 118 28 171/71 (104) 91 08/07/20 01:00 116 27 167/83 (111) 89 08/07/20 00:00 Mechanical Ventilator 08/07/20 00:00 92 08/07/20 00:00 100 08/07/20 00:00 99.8 112 27 159/67 (97) 91 08/06/20 23:55 118 28 100 08/06/20 23:22 92 154/63 08/06/20 23:00 97 26 162/63 (96) 93 08/06/20 22:00 114 28 164/71 (102) 91 08/06/20 21:00 117 27 166/64 (98) 91 08/06/20 20:57 100.5 08/06/20 20:00 100.5 101 27 149/71 (97) 92 08/06/20 20:00 104 08/06/20 20:00 Mechanical Ventilator 08/06/20 20:00 100 08/06/20 19:00 114 26 Nasal Cannula 100 08/06/20 19:00 100.0 117 28 161/82 (108) 92 08/06/20 18:00 117 28 160/80 (106) 91 08/06/20 17:14 112 158/81 08/06/20 17:00 100.0 112 26 158/81 (106) 93 08/06/20 16:00 109 23 154/73 (100) 94 08/06/20 16:00 100 08/06/20 16:00 109 08/06/20 15:46 Mechanical Ventilator 08/06/20 15:00 100.2 116 23 156/71 (99) 95 08/06/20 14:56 121 23 100 08/06/20 14:00 101.3 117 24 151/71 (97) 93 08/06/20 13:54 101.3 08/06/20 13:00 100.9 122 24 157/80 (105) 93 08/06/20 12:28 120 153/77 08/06/20 12:00 117 23 153/77 (102) 94 08/06/20 12:00 120 08/06/20 11:56 100 08/06/20 11:56 Mechanical Ventilator 08/06/20 10:53 119 25 158/79 (105) 93 08/06/20 10:45 121 25 100 08/06/20 10:00 125 30 169/81 (110) 90 08/06/20 09:00 99.4 118 27 161/77 (105) 91 08/06/20 08:00 119 08/06/20 08:00 Mechanical Ventilator 08/06/20 08:00 121 29 174/88 (116) 92 08/06/20 08:00 100 Intake and Output 08/06/20 08/07/20 19:00 07:00 Intake Total 1543 ml 1600 ml Output Total 930 ml 730 ml Balance 613 ml 870 ml IV Total 1123 ml 1000 ml Tube Feeding 420 ml 420 ml Other 180 ml Output Urine Total 930 ml 730 ml Stool Total 0 ml Laboratory Tests 08/06/20 07:40: Arterial Blood pH 7.283L, Arterial Blood Partial Pressure CO2 70.4*H, Arterial Blood Partial Pressure O2 59.9L, Arterial Blood HCO3 32.6H, Arterial Blood Oxygen Saturation 91.3L, Arterial Blood Base Excess 3.7H, Mehdi Test Positive 08/06/20 12:06: POC Whole Blood Glucose 183H 08/06/20 17:01: POC Whole Blood Glucose 244H 08/06/20 19:32: POC Whole Blood Glucose 292H 08/06/20 23:05: POC Whole Blood Glucose [Pending] 08/07/20 04:35: White Blood Count 23.0*H, Red Blood Count 4.03L, Hemoglobin 13.0L, Hematocrit 40.1L, Mean Corpuscular Volume 100H, Mean Corpuscular Hemoglobin 32.2H, Mean Corpuscular Hemoglobin Concent 32.3, Red Cell Distribution Width 12.7, Platelet Count 142L, Mean Platelet Volume 6.9, Neutrophils (%) (Auto) , Lymphocytes (%) (Auto) , Monocytes (%) (Auto) , Eosinophils (%) (Auto) , Basophils (%) (Auto) , Neutrophils % (Manual) [Pending], Lymphocytes % (Manual) [Pending], Platelet Estimate [Pending], Platelet Morphology [Pending], Sodium Level 149H, Potassium Level 4.6, Chloride Level 113H, Carbon Dioxide Level 34H, Anion Gap 3L, Blood Urea Nitrogen 73H, Creatinine 1.9H, Estimat Glomerular Filtration Rate 35.8, Glucose Level 272H, Calcium Level 7.7L, Phosphorus Level 2.1L, Magnesium Level 3.4H, Total Bilirubin 0.7, Aspartate Amino Transf (AST/SGOT) 86H, Alanine Aminotransferase (ALT/SGPT) 628H, Alkaline Phosphatase 211H, C-Reactive Protein, Quantitative 1.4H, Pro-B-Type Natriuretic Peptide 2833H, Total Protein 5.5L, Albumin 2.1L, Globulin 3.4, Albumin/Globulin Ratio 0.6L Height (Feet): 5 Height (Inches): 5.00 Weight (Pounds): 160 General Appearance: lethargic EENT: normal ENT inspection Neck: normal alignment Cardiovascular: normal peripheral pulses, normal rate, regular rhythm Respiratory/Chest: chest wall non-tender, lungs clear, normal breath sounds Abdomen: normal bowel sounds, non tender, soft Extremities: normal inspection Edema: no edema noted Arm (L), no edema noted Arm (R), no edema noted Leg (L), no edema noted Leg (R), no edema noted Pedal (L), no edema noted Pedal (R), no edema noted Generalized Neurologic: motor weakness Skin: normal pigmentation, warm/dry Assessment/Plan Problem List: (1) Hypoxia ICD Codes: R09.02 - Hypoxemia SNOMED: 135458270 (2) Bilateral pneumonia ICD Codes: J18.9 - Pneumonia, unspecified organism SNOMED: 067666875, 876108248 (3) Acute respiratory failure with hypoxia ICD Codes: J96.01 - Acute respiratory failure with hypoxia SNOMED: 44412276, 035794551 (4) Bradycardia ICD Codes: R00.1 - Bradycardia, unspecified SNOMED: 07409380 (5) Malnutrition ICD Codes: E46 - Unspecified protein-calorie malnutrition SNOMED: 76641368 Status: unchanged Assessment/Plan: o2 pulm tx abx pt diet cardio f/u cbc bmp am Robert Guzman DO Aug 07, 2020 07:20
--- NOTE | 2020-08-07 07:21 | NUR ---
NURSE HAND-OFF REPORT: Latest Vital Signs: Temperature 97.9 , Pulse 110 , B/P 171 /89 , Respiratory Rate 28 , O2 SAT 92 , Mechanical Ventilator, O2 Flow Rate . Vital Sign Comment: BP 171/89. PRN Clonidine given. EKG Rhythm: Sinus Tachycardia Rhythm change?: N Notified?: Moi Guzman MD Response: Latest Orozco Fall Score: 50 Fall Risk: High Risk Safety Measures: Call light Within Reach, Bed Alarm Zone 1, Side Rails Side Rails x2, Bed position Low and Locked. Fall Precautions: Yellow Socks Yellow Gown Door Sign Patient Fall Education Report given to Dena Pettit RN.
--- NOTE | 2020-08-07 07:44 | Consultation ---
DATE OF CONSULTATION: 08/07/2020 ENDOCRINOLOGY CONSULTATION CONSULTING PHYSICIAN: Jeffrey Sinclair MD. REFERRING PHYSICIAN: Robert Guzman DO. REASON FOR CONSULTATION: Diabetes management. HISTORY OF PRESENT ILLNESS: This is important to note that history is obtained from the review of the chart and medical records since the patient is intubated in the ICU, is not able to provide any meaningful history. The patient is a 64-year-old male with past medical history of diabetes, presented to the hospital with COVID pneumonia, respiratory failure, he is currently in the ICU, quite hypernatremic and Endocrinology was consulted in order to assist in the management of diabetes. The patient was admitted to the hospital on July 29. Initially, presented with shortness of breath and hypoxemia for the past 10 days, was found to have COVID-19. PAST MEDICAL HISTORY: Diabetes. PAST SURGICAL HISTORY: Unknown. FAMILY HISTORY: Noncontributory. REVIEW OF SYSTEMS: Unobtainable. SOCIAL HISTORY: Lives with the family. No smoking, alcohol, or drug use. PHYSICAL EXAMINATION: VITAL SIGNS: Blood pressure 155/79, heart rate 89, respiratory rate 26, temperature 97.9. The rest of the exam is deferred due to COVID isolation. ALLERGY TO MEDICATIONS: None. LABORATORY DATA: Laboratory values, WBC 23, hemoglobin 13, hematocrit 40, platelet count of 142. Sodium 152, potassium 5.2, chloride 117, bicarb 22, BUN 53, creatinine 2.0, glucose of 198. TSH is 0.8. MEDICATIONS: Reviewed and reconciled. DIAGNOSES: 1. COVID pneumonia with respiratory failure. 2. Diabetes. PLAN: 1. Blood glucose monitoring every 6 hours and coverage with NovoLog sliding scale. 2. Levemir 20 units b.i.d., full dose to be given even if the patient is NPO. Further adjustment according to the glucose values. Hypoglycemia protocol is in order. Thank you, Dr. Guzman, for the courtesy of this consultation. Jeffrey Sinclair M.D. DR: CARLOS/CHEYENNE JOB#: [id number] CC: [email or web address]
[2020-08-07] MEDS: Solu-MEDROL 40mg Inj IVP SCH ×2 (08:38→20:15)
--- NOTE | 2020-08-07 08:38 | Infectious Diseases Prog Note ---
Assessment/Plan Assessment/Plan A; Pneumonia,with COVID19 disease Leukocytosis worsening Acute renal failure Hyperkalemia Hypoxemia Lactic acidosis Elevated transaminase DM type 2 with Hyperglycemia PLAN: 1. Start on Rocephin 2. Continue Solumedrol 3. Continue isolation. Subjective ROS Limited/Unobtainable: Yes Constitutional: Reports: fever, other - since yesterday Neurologic: Reports: other - on restraint, sedated Allergies: Coded Allergies: No Known Allergies (Unverified , 07/29/20) Objective Last 24 Hour Vital Signs Date Time Temp Pulse Resp B/P (MAP) Pulse Ox O2 Delivery O2 Flow Rate FiO2 08/07/20 08:00 Mechanical Ventilator 08/07/20 08:00 105 08/07/20 08:00 100 08/07/20 08:00 108 26 164/91 (115) 92 08/07/20 07:15 171/89 08/07/20 07:00 110 28 171/89 (116) 92 08/07/20 06:00 103 26 155/79 (104) 93 08/07/20 05:16 123 169/93 08/07/20 05:00 116 30 169/74 (105) 88 08/07/20 04:00 115 08/07/20 04:00 100 08/07/20 04:00 97.9 119 26 151/83 (105) 91 08/07/20 04:00 Mechanical Ventilator 08/07/20 03:20 115 29 100 08/07/20 03:00 121 27 157/84 (108) 89 08/07/20 02:21 181/89 08/07/20 02:00 118 28 171/71 (104) 91 08/07/20 01:00 116 27 167/83 (111) 89 08/07/20 00:00 Mechanical Ventilator 08/07/20 00:00 92 08/07/20 00:00 100 08/07/20 00:00 99.8 112 27 159/67 (97) 91 08/06/20 23:55 118 28 100 08/06/20 23:22 92 154/63 08/06/20 23:00 97 26 162/63 (96) 93 08/06/20 22:00 114 28 164/71 (102) 91 08/06/20 21:00 117 27 166/64 (98) 91 08/06/20 20:57 100.5 1/13/21 20:00 100.5 101 27 149/71 (97) 92 08/06/20 20:00 104 08/06/20 20:00 Mechanical Ventilator 08/06/20 20:00 100 08/06/20 19:00 114 26 Nasal Cannula 100 08/06/20 19:00 100.0 117 28 161/82 (108) 92 08/06/20 18:00 117 28 160/80 (106) 91 08/06/20 17:14 112 158/81 08/06/20 17:00 100.0 112 26 158/81 (106) 93 08/06/20 16:00 109 23 154/73 (100) 94 08/06/20 16:00 100 08/06/20 16:00 109 08/06/20 15:46 Mechanical Ventilator 08/06/20 15:00 100.2 116 23 156/71 (99) 95 08/06/20 14:56 121 23 100 08/06/20 14:00 101.3 117 24 151/71 (97) 93 08/06/20 13:54 101.3 08/06/20 13:00 100.9 122 24 157/80 (105) 93 08/06/20 12:28 120 153/77 08/06/20 12:00 117 23 153/77 (102) 94 08/06/20 12:00 120 08/06/20 11:56 100 08/06/20 11:56 Mechanical Ventilator 08/06/20 10:53 119 25 158/79 (105) 93 08/06/20 10:45 121 25 100 08/06/20 10:00 125 30 169/81 (110) 90 08/06/20 09:00 99.4 118 27 161/77 (105) 91 Height (Feet): 5 Height (Inches): 5.00 Weight (Pounds): 160 HEENT: other - orally intubated Respiratory/Chest: other - on ventilator, KAQ9=265% Abdomen: soft, non tender, other - OG tube Extremities: other - hands edema Neurologic/Psychiatric: other - sedated Microbiology Date/Time Source Procedure Growth Status 08/05/20 18:00 Sputum Expectorated Gram Stain - Final Complete 08/05/20 18:00 Sputum Expectorated Sputum Culture - Final NORMAL UPPER RESPIRATORY CAITLIN PRESENT Complete Laboratory Tests Test 08/06/20 12:06 08/06/20 17:01 08/06/20 19:32 08/06/20 23:05 POC Whole Blood Glucose 183 MG/DL (74-106) H 244 MG/DL (74-106) H 292 MG/DL (74-106) H Pending Test 08/07/20 04:35 White Blood Count 23.0 K/UL (4.8-10.8) *H Red Blood Count 4.03 M/UL (4.70-6.10) L Hemoglobin 13.0 G/DL (14.2-18.0) L Hematocrit 40.1 % (42.0-52.0) L Mean Corpuscular Volume 100 FL (80-99) H Mean Corpuscular Hemoglobin 32.2 PG (27.0-31.0) H Mean Corpuscular Hemoglobin Concent 32.3 G/DL (32.0-36.0) Red Cell Distribution Width 12.7 % (11.6-14.8) Platelet Count 142 K/UL (150-450) L Mean Platelet Volume 6.9 FL (6.5-10.1) Neutrophils (%) (Auto) % (45.0-75.0) Lymphocytes (%) (Auto) % (20.0-45.0) Monocytes (%) (Auto) % (1.0-10.0) Eosinophils (%) (Auto) % (0.0-3.0) Basophils (%) (Auto) % (0.0-2.0) Neutrophils % (Manual) Pending Lymphocytes % (Manual) Pending Platelet Estimate Pending Platelet Morphology Pending Sodium Level 149 MMOL/L (136-145) H Potassium Level 4.6 MMOL/L (3.5-5.1) Chloride Level 113 MMOL/L (98-107) H Carbon Dioxide Level 34 MMOL/L (21-32) H Anion Gap 3 mmol/L (5-15) L Blood Urea Nitrogen 73 mg/dL (7-18) H Creatinine 1.9 MG/DL (0.55-1.30) H Estimat Glomerular Filtration Rate 35.8 mL/min (>60) Glucose Level 272 MG/DL (74-106) H Calcium Level 7.7 MG/DL (8.5-10.1) L Phosphorus Level 2.1 MG/DL (2.5-4.9) L Magnesium Level 3.4 MG/DL (1.8-2.4) H Total Bilirubin 0.7 MG/DL (0.2-1.0) Aspartate Amino Transf (AST/SGOT) 86 U/L (15-37) H Alanine Aminotransferase (ALT/SGPT) 628 U/L (12-78) H Alkaline Phosphatase 211 U/L (46-116) H C-Reactive Protein, Quantitative 1.4 mg/dL (0.00-0.90) H Pro-B-Type Natriuretic Peptide 2833 pg/mL (0-125) H Total Protein 5.5 G/DL (6.4-8.2) L Albumin 2.1 G/DL (3.4-5.0) L Globulin 3.4 g/dL Albumin/Globulin Ratio 0.6 (1.0-2.7) L Current Medications Medications (Trade) Dose Ordered Sig/Fabiano Route PRN Reason Start Time Stop Time Status Last Admin Dose Admin Acetaminophen (Tylenol) 650 mg Q4H PRN NG Temp >100.5 08/03/20 04:15 09/02/20 04:14 08/06/20 20:27 Acetaminophen (Tylenol) 650 mg Q4H PRN RECTAL Temp >100.5 08/01/20 20:30 08/31/20 20:29 08/02/20 10:28 Albuterol Sulfate (Proventil MDI) 2 puff Q4H PRN INH Shortness of Breath 07/29/20 22:45 10/27/20 22:44 Cetylpyridinium Chloride (Cepacol) 1 lozg Q2H PRN [place] For Cough 07/30/20 21:00 10/28/20 20:59 08/01/20 08:47 Clonidine HCl (Catapres Tab) 0.1 mg Q2H PRN ORAL SBP > 170mmHg 08/04/20 09:45 11/02/20 09:44 08/07/20 07:15 Dextrose 1,000 ml @ 100 mls/hr Q10H IV 08/06/20 12:15 09/05/20 12:14 08/06/20 23:01 Dextrose (Dextrose 50%) 25 ml Q30M PRN IV Hypoglycemia 08/06/20 10:45 11/04/20 10:44 Dextrose (Dextrose 50%) 50 ml Q30M PRN IV Hypoglycemia 08/06/20 10:45 11/04/20 10:44 Diltiazem HCl (Cardizem Tab) 60 mg EVERY 6 HOURS ORAL 08/06/20 12:15 09/03/20 12:14 08/07/20 05:16 Docusate Sodium (Colace) 100 mg TWICE A DAY ORAL 08/06/20 18:00 09/05/20 17:59 08/06/20 17:14 Enoxaparin Sodium (Lovenox) 30 mg DAILY SUBQ 08/02/20 10:00 10/31/20 09:59 08/06/20 09:18 Guaifenesin/ Dextromethorphan (Robitussin DM Syrup) 15 ml Q6H PRN ORAL For Cough 07/31/20 08:30 10/29/20 08:29 08/01/20 08:47 Insulin Aspart (NovoLOG) Q6HR SUBQ 08/06/20 12:00 11/04/20 11:59 08/07/20 05:15 Insulin Detemir (Levemir) 20 units Q12HR SUBQ 08/07/20 09:00 11/04/20 20:59 Methylprednisolone Sodium Succinate (Solu-MEDROL) 40 mg EVERY 12 HOURS IVP 08/04/20 12:30 11/02/20 12:29 08/06/20 20:27 Pantoprazole (Protonix) 40 mg DAILY IVP 08/06/20 10:00 09/05/20 09:59 08/06/20 09:19 Polyethylene Glycol (Miralax) 17 gm BEDTIME ORAL 08/06/20 21:00 09/05/20 20:59 08/06/20 20:27 Jose Antonio Klein MD Aug 07, 2020 08:38
[2020-08-07] MEDS: Docusate 100mg cap ORAL SCH ×2 (08:39→18:00)
[2020-08-07] MEDS: Enoxaparin 30mg Inj SUBQ SCH (08:39)
[2020-08-07] MEDS: Pantoprazole Inj IVP SCH (08:39)
[2020-08-07] MEDS: Levemir Flexpen SUBQ SCH ×2 (08:49→20:20)
--- NOTE | 2020-08-07 09:39 | Cardiac Electrophysiology PN ---
Assessment/Plan Assessment/Plan 1. Bradycardia off any sinus-galen or AV-galen blocking agents. Echocardiogram EF 60% 2. HTN and tachycardia. Increase Cardizem to 90 tid. Also on prn Clonidine 3. Respiratory failure due to Covid PNA intubated on 100% Fio2 and PEEP 5 4. Acute renal failure with CR 2.5 5. Shock Liver with AST and ALT >1100 6.Sepsis. White count 21,000 on IV antibiotic per Dr. Antonio. DIXIE RN Subjective Subjective In ICU intubated on 100% Fio2 and PEEP 5.. Has fever and thrombocytopenia. EF 60%. On Cardizem 60 qid. Unresponsive to pain. BP as high as 160s Objective Last 24 Hour Vital Signs Date Time Temp Pulse Resp B/P (MAP) Pulse Ox O2 Delivery O2 Flow Rate FiO2 08/07/20 08:00 Mechanical Ventilator 08/07/20 08:00 105 08/07/20 08:00 100 08/07/20 08:00 108 26 164/91 (115) 92 08/07/20 07:15 171/89 08/07/20 07:00 110 28 171/89 (116) 92 08/07/20 06:00 103 26 155/79 (104) 93 08/07/20 05:16 123 169/93 08/07/20 05:00 116 30 169/74 (105) 88 08/07/20 04:00 115 08/07/20 04:00 100 08/07/20 04:00 97.9 119 26 151/83 (105) 91 08/07/20 04:00 Mechanical Ventilator 08/07/20 03:20 115 29 100 08/07/20 03:00 121 27 157/84 (108) 89 08/07/20 02:21 181/89 08/07/20 02:00 118 28 171/71 (104) 91 08/07/20 01:00 116 27 167/83 (111) 89 08/07/20 00:00 Mechanical Ventilator 08/07/20 00:00 92 08/07/20 00:00 100 08/07/20 00:00 99.8 112 27 159/67 (97) 91 08/06/20 23:55 118 28 100 08/06/20 23:22 92 154/63 08/06/20 23:00 97 26 162/63 (96) 93 08/06/20 22:00 114 28 164/71 (102) 91 08/06/20 21:00 117 27 166/64 (98) 91 08/06/20 20:57 100.5 08/06/20 20:00 100.5 101 27 149/71 (97) 92 08/06/20 20:00 104 08/06/20 20:00 Mechanical Ventilator 08/06/20 20:00 100 08/06/20 19:00 114 26 Nasal Cannula 100 08/06/20 19:00 100.0 117 28 161/82 (108) 92 08/06/20 18:00 117 28 160/80 (106) 91 08/06/20 17:14 112 158/81 08/06/20 17:00 100.0 112 26 158/81 (106) 93 08/06/20 16:00 109 23 154/73 (100) 94 08/06/20 16:00 100 08/06/20 16:00 109 08/06/20 15:46 Mechanical Ventilator 08/06/20 15:00 100.2 116 23 156/71 (99) 95 08/06/20 14:56 121 23 100 08/06/20 14:00 101.3 117 24 151/71 (97) 93 08/06/20 13:54 101.3 08/06/20 13:00 100.9 122 24 157/80 (105) 93 08/06/20 12:28 120 153/77 08/06/20 12:00 117 23 153/77 (102) 94 08/06/20 12:00 120 08/06/20 11:56 100 08/06/20 11:56 Mechanical Ventilator 08/06/20 10:53 119 25 158/79 (105) 93 08/06/20 10:45 121 25 100 08/06/20 10:00 125 30 169/81 (110) 90 Intake and Output 08/06/20 08/07/20 19:00 07:00 Intake Total 1543 ml 1600 ml Output Total 930 ml 730 ml Balance 613 ml 870 ml IV Total 1123 ml 1000 ml Tube Feeding 420 ml 420 ml Other 180 ml Output Urine Total 930 ml 730 ml Stool Total 0 ml Laboratory Tests Test 08/06/20 12:06 08/06/20 17:01 08/06/20 19:32 08/06/20 23:05 POC Whole Blood Glucose 183 MG/DL (74-106) H 244 MG/DL (74-106) H 292 MG/DL (74-106) H Pending Test 08/07/20 04:35 White Blood Count 23.0 K/UL (4.8-10.8) *H Red Blood Count 4.03 M/UL (4.70-6.10) L Hemoglobin 13.0 G/DL (14.2-18.0) L Hematocrit 40.1 % (42.0-52.0) L Mean Corpuscular Volume 100 FL (80-99) H Mean Corpuscular Hemoglobin 32.2 PG (27.0-31.0) H Mean Corpuscular Hemoglobin Concent 32.3 G/DL (32.0-36.0) Red Cell Distribution Width 12.7 % (11.6-14.8) Platelet Count 142 K/UL (150-450) L Mean Platelet Volume 6.9 FL (6.5-10.1) Neutrophils (%) (Auto) % (45.0-75.0) Lymphocytes (%) (Auto) % (20.0-45.0) Monocytes (%) (Auto) % (1.0-10.0) Eosinophils (%) (Auto) % (0.0-3.0) Basophils (%) (Auto) % (0.0-2.0) Differential Total Cells Counted 100 Neutrophils % (Manual) 97 % (45-75) H Lymphocytes % (Manual) 1 % (20-45) L Monocytes % (Manual) 2 % (1-10) Eosinophils % (Manual) 0 % (0-3) Basophils % (Manual) 0 % (0-2) Band Neutrophils 0 % (0-8) Platelet Estimate Decreased L Platelet Morphology Normal Macrocytosis 1+ Sodium Level 149 MMOL/L (136-145) H Potassium Level 4.6 MMOL/L (3.5-5.1) Chloride Level 113 MMOL/L (98-107) H Carbon Dioxide Level 34 MMOL/L (21-32) H Anion Gap 3 mmol/L (5-15) L Blood Urea Nitrogen 73 mg/dL (7-18) H Creatinine 1.9 MG/DL (0.55-1.30) H Estimat Glomerular Filtration Rate 35.8 mL/min (>60) Glucose Level 272 MG/DL (74-106) H Calcium Level 7.7 MG/DL (8.5-10.1) L Phosphorus Level 2.1 MG/DL (2.5-4.9) L Magnesium Level 3.4 MG/DL (1.8-2.4) H Total Bilirubin 0.7 MG/DL (0.2-1.0) Aspartate Amino Transf (AST/SGOT) 86 U/L (15-37) H Alanine Aminotransferase (ALT/SGPT) 628 U/L (12-78) H Alkaline Phosphatase 211 U/L (46-116) H C-Reactive Protein, Quantitative 1.4 mg/dL (0.00-0.90) H Pro-B-Type Natriuretic Peptide 2833 pg/mL (0-125) H Total Protein 5.5 G/DL (6.4-8.2) L Albumin 2.1 G/DL (3.4-5.0) L Globulin 3.4 g/dL Albumin/Globulin Ratio 0.6 (1.0-2.7) L Microbiology Date/Time Source Procedure Growth Status 08/05/20 18:00 Sputum Expectorated Gram Stain - Final Complete 08/05/20 18:00 Sputum Expectorated Sputum Culture - Final NORMAL UPPER RESPIRATORY CAITLIN PRESENT Complete Objective HEAD AND NECK: Showed no JVD. LUNGS: Clear. CARDIOVASCULAR: Shows regular S1 and S2 with no gallop. ABDOMEN: Soft. EXTREMITIES: No pitting edema. Navjot Bains MD Aug 07, 2020 09:39
[2020-08-07] MEDS: dilTIAZem HCl 90mg tab ORAL SCH ×3 (09:45→21:26)
[2020-08-07] MEDS: cefTRIAXone 1 GM in D5W 55 ML IVPB SCH (10:20)
--- NOTE | 2020-08-07 10:20 | NUR ---
0945 PT,SEEN BY GAEL ARIAS ADJUSTED PO CARDIZEM DOSE SBP>160 , DOES NOT OPENING EYES VERY WEAK RESPONSE TO DEEP PAIN/TURNING
--- NOTE | 2020-08-07 11:54 | Nephrology Progress Note ---
Assessment/Plan Problem List: (1) ERIKA (acute kidney injury) (2) Shock liver (3) Acute respiratory failure with hypoxia (4) Bilateral pneumonia Assessment Acute renal failure. Most likely due to hypotensive and shock from 8 PM last night to 5 AM this morning. Hyperkalemia. Acute hypoxic respiratory failure. Pneumonia with COVID-19. Elevated transaminase, most likely shock liver. Plan August 07: Labs reviewed. Neutra-Phos via NG tube given. Serum sodium and serum potassium lowering. Medication list reviewed. Levemir and Cardizem doses were adjusted by consultants. Continue to monitor renal parameters. August 06: Labs reviewed. Serum potassium 5.2. Serum sodium 152. Will change IV to D5W. Will start with the Levemir 10 mg nightly. August 05: Labs reviewed. Renal parameters improving. LFTs gradually improving. IV changed to half-normal saline. Continue to monitor blood sugar. Continue to monitor renal parameters. Patient full code. Cardizem dose increased. August 04: Renal parameters improving. LFTs remain elevated. Hemodynamically stable. Continue to monitor renal parameters. Continue per consultants. Discussed with CARLOS Greene. August 03: Patient intubated on ventilator. Renal parameters worsening. LFTs elevated. Patient is deteriorating. Will consider dialysis treatment if no reversal of kidney failure. Discussed with CARLOS Alexis. Previously: Albumin bolus Increase IV fluid Kayexalate for high potassium Monitor renal parameters Subjective ROS Limited/Unobtainable: Yes Objective Objective Last 24 Hour Vital Signs Date Time Temp Pulse Resp B/P (MAP) Pulse Ox O2 Delivery O2 Flow Rate FiO2 08/07/20 11:00 107 28 169/89 (115) 94 08/07/20 10:00 108 27 162/91 (114) 93 08/07/20 09:45 109 162/91 08/07/20 09:00 98.6 106 27 183/91 (121) 93 08/07/20 08:00 Mechanical Ventilator 08/07/20 08:00 105 08/07/20 08:00 100 08/07/20 08:00 108 26 164/91 (115) 92 08/07/20 07:15 171/89 08/07/20 07:00 110 28 171/89 (116) 92 08/07/20 06:00 103 26 155/79 (104) 93 08/07/20 05:16 123 169/93 08/07/20 05:00 116 30 169/74 (105) 88 08/07/20 04:00 115 08/07/20 04:00 100 08/07/20 04:00 97.9 119 26 151/83 (105) 91 08/07/20 04:00 Mechanical Ventilator 08/07/20 03:20 115 29 100 08/07/20 03:00 121 27 157/84 (108) 89 08/07/20 02:21 181/89 08/07/20 02:00 118 28 171/71 (104) 91 08/07/20 01:00 116 27 167/83 (111) 89 08/07/20 00:00 Mechanical Ventilator 08/07/20 00:00 92 08/07/20 00:00 100 08/07/20 00:00 99.8 112 27 159/67 (97) 91 08/06/20 23:55 118 28 100 08/06/20 23:22 92 154/63 08/06/20 23:00 97 26 162/63 (96) 93 08/06/20 22:00 114 28 164/71 (102) 91 08/06/20 21:00 117 27 166/64 (98) 91 08/06/20 20:57 100.5 08/06/20 20:00 100.5 101 27 149/71 (97) 92 08/06/20 20:00 104 08/06/20 20:00 Mechanical Ventilator 08/06/20 20:00 100 08/06/20 19:00 114 26 Nasal Cannula 100 08/06/20 19:00 100.0 117 28 161/82 (108) 92 08/06/20 18:00 117 28 160/80 (106) 91 08/06/20 17:14 112 158/81 08/06/20 17:00 100.0 112 26 158/81 (106) 93 08/06/20 16:00 109 23 154/73 (100) 94 08/06/20 16:00 100 08/06/20 16:00 109 08/06/20 15:46 Mechanical Ventilator 08/06/20 15:00 100.2 116 23 156/71 (99) 95 08/06/20 14:56 121 23 100 08/06/20 14:00 101.3 117 24 151/71 (97) 93 08/06/20 13:54 101.3 08/06/20 13:00 100.9 122 24 157/80 (105) 93 08/06/20 12:28 120 153/77 08/06/20 12:00 117 23 153/77 (102) 94 08/06/20 12:00 120 08/06/20 11:56 100 08/06/20 11:56 Mechanical Ventilator Intake and Output 08/06/20 08/07/20 19:00 07:00 Intake Total 1543 ml 1700 ml Output Total 930 ml 730 ml Balance 613 ml 970 ml IV Total 1123 ml 1100 ml Tube Feeding 420 ml 420 ml Other 180 ml Output Urine Total 930 ml 730 ml Stool Total 0 ml Current Medications Medications (Trade) Dose Ordered Sig/Fabiano Route PRN Reason Start Time Stop Time Status Last Admin Dose Admin Acetaminophen (Tylenol) 650 mg Q4H PRN NG Temp >100.5 08/03/20 04:15 09/02/20 04:14 08/06/20 20:27 Acetaminophen (Tylenol) 650 mg Q4H PRN RECTAL Temp >100.5 08/01/20 20:30 08/31/20 20:29 08/02/20 10:28 Albuterol Sulfate (Proventil MDI) 2 puff Q4H PRN INH Shortness of Breath 07/29/20 22:45 10/27/20 22:44 Ceftriaxone Sodium 1 gm/ Dextrose 55 ml @ 110 mls/hr Q24H IVPB 08/07/20 10:00 08/14/20 09:59 08/07/20 10:20 Cetylpyridinium Chloride (Cepacol) 1 lozg Q2H PRN [place] For Cough 07/30/20 21:00 10/28/20 20:59 08/01/20 08:47 Clonidine HCl (Catapres Tab) 0.1 mg Q2H PRN ORAL SBP > 170mmHg 08/04/20 09:45 11/02/20 09:44 08/07/20 07:15 Dextrose 1,000 ml @ 100 mls/hr Q10H IV 08/06/20 12:15 09/05/20 12:14 08/07/20 08:39 Dextrose (Dextrose 50%) 25 ml Q30M PRN IV Hypoglycemia 08/06/20 10:45 11/04/20 10:44 Dextrose (Dextrose 50%) 50 ml Q30M PRN IV Hypoglycemia 08/06/20 10:45 11/04/20 10:44 Diltiazem HCl (Cardizem Tab) 90 mg EVERY 8 HOURS ORAL 08/07/20 09:45 09/03/20 12:14 08/07/20 09:45 Docusate Sodium (Colace) 100 mg TWICE A DAY ORAL 08/06/20 18:00 09/05/20 17:59 08/07/20 08:39 Enoxaparin Sodium (Lovenox) 30 mg DAILY SUBQ 08/02/20 10:00 10/31/20 09:59 08/07/20 08:39 Guaifenesin/ Dextromethorphan (Robitussin DM Syrup) 15 ml Q6H PRN ORAL For Cough 07/31/20 08:30 10/29/20 08:29 08/01/20 08:47 Insulin Aspart (NovoLOG) Q6HR SUBQ 08/06/20 12:00 11/04/20 11:59 08/07/20 05:15 Insulin Detemir (Levemir) 20 units Q12HR SUBQ 08/07/20 09:00 11/04/20 20:59 08/07/20 08:49 Methylprednisolone Sodium Succinate (Solu-MEDROL) 40 mg EVERY 12 HOURS IVP 08/04/20 12:30 11/02/20 12:29 08/07/20 08:38 Pantoprazole (Protonix) 40 mg DAILY IVP 08/06/20 10:00 09/05/20 09:59 08/07/20 08:39 Polyethylene Glycol (Miralax) 17 gm BEDTIME ORAL 08/06/20 21:00 09/05/20 20:59 08/06/20 20:27 Laboratory Tests 08/06/20 12:06: POC Whole Blood Glucose 183H 08/06/20 17:01: POC Whole Blood Glucose 244H 08/06/20 19:32: POC Whole Blood Glucose 292H 08/06/20 23:05: POC Whole Blood Glucose [Pending] 08/07/20 04:35: White Blood Count 23.0*H, Red Blood Count 4.03L, Hemoglobin 13.0L, Hematocrit 40.1L, Mean Corpuscular Volume 100H, Mean Corpuscular Hemoglobin 32.2H, Mean Corpuscular Hemoglobin Concent 32.3, Red Cell Distribution Width 12.7, Platelet Count 142L, Mean Platelet Volume 6.9, Neutrophils (%) (Auto) , Lymphocytes (%) (Auto) , Monocytes (%) (Auto) , Eosinophils (%) (Auto) , Basophils (%) (Auto) , Differential Total Cells Counted 100, Neutrophils % (Manual) 97H, Lymphocytes % (Manual) 1L, Monocytes % (Manual) 2, Eosinophils % (Manual) 0, Basophils % (Manual) 0, Band Neutrophils 0, Platelet Estimate DecreasedL, Platelet Morphology Normal, Macrocytosis 1+, Sodium Level 149H, Potassium Level 4.6, Chloride Level 113H, Carbon Dioxide Level 34H, Anion Gap 3L, Blood Urea Nitrogen 73H, Creatinine 1.9H, Estimat Glomerular Filtration Rate 35.8, Glucose Level 272H, Calcium Level 7.7L, Phosphorus Level 2.1L, Magnesium Level 3.4H, Total Bilirubin 0.7, Aspartate Amino Transf (AST/SGOT) 86H, Alanine Aminotransferase (ALT/SGPT) 628H, Alkaline Phosphatase 211H, C-Reactive Protein, Quantitative 1.4H, Pro-B-Type Natriuretic Peptide 2833H, Total Protein 5.5L, Albumin 2.1L, Globulin 3.4, Albumin/Globulin Ratio 0.6L Height (Feet): 5 Height (Inches): 5.00 Weight (Pounds): 160 General Appearance: no apparent distress, lethargic EENT: other - Intubated on ventilator Cardiovascular: tachycardia Respiratory/Chest: decreased breath sounds Abdomen: distended Jared Everett MD Aug 07, 2020 11:54
--- NOTE | 2020-08-07 11:59 | NUR ---
pt,seen by donta velez bedside report given no changes of pt, mental status
[2020-08-07] MEDS ORDERED: Phospha 250 Neutral tab NG SCH (12:00)
--- NOTE | 2020-08-07 13:15 | Surgery Progress Note ---
Surgery Progress Note Subjective Additional Comments lf'ts elevated worsening leukocytosis on steroids ill appearing Objective Last 24 Hour Vital Signs Date Time Temp Pulse Resp B/P (MAP) Pulse Ox O2 Delivery O2 Flow Rate FiO2 08/07/20 12:03 100 08/07/20 12:00 104 08/07/20 12:00 102 26 172/93 (119) 94 08/07/20 12:00 Mechanical Ventilator 08/07/20 11:00 107 28 169/89 (115) 94 08/07/20 10:00 108 27 162/91 (114) 93 08/07/20 09:45 109 162/91 08/07/20 09:00 98.6 106 27 183/91 (121) 93 08/07/20 08:00 Mechanical Ventilator 08/07/20 08:00 105 08/07/20 08:00 100 08/07/20 08:00 108 26 164/91 (115) 92 08/07/20 07:15 171/89 08/07/20 07:00 110 28 171/89 (116) 92 08/07/20 06:00 103 26 155/79 (104) 93 08/07/20 05:16 123 169/93 08/07/20 05:00 116 30 169/74 (105) 88 08/07/20 04:00 115 08/07/20 04:00 100 08/07/20 04:00 97.9 119 26 151/83 (105) 91 08/07/20 04:00 Mechanical Ventilator 08/07/20 03:20 115 29 100 08/07/20 03:00 121 27 157/84 (108) 89 08/07/20 02:21 181/89 08/07/20 02:00 118 28 171/71 (104) 91 08/07/20 01:00 116 27 167/83 (111) 89 08/07/20 00:00 Mechanical Ventilator 08/07/20 00:00 92 08/07/20 00:00 100 08/07/20 00:00 99.8 112 27 159/67 (97) 91 08/06/20 23:55 118 28 100 08/06/20 23:22 92 154/63 08/06/20 23:00 97 26 162/63 (96) 93 08/06/20 22:00 114 28 164/71 (102) 91 08/06/20 21:00 117 27 166/64 (98) 91 08/06/20 20:57 100.5 08/06/20 20:00 100.5 101 27 149/71 (97) 92 08/06/20 20:00 104 08/06/20 20:00 Mechanical Ventilator 08/06/20 20:00 100 08/06/20 19:00 114 26 Nasal Cannula 100 08/06/20 19:00 100.0 117 28 161/82 (108) 92 08/06/20 18:00 117 28 160/80 (106) 91 08/06/20 17:14 112 158/81 08/06/20 17:00 100.0 112 26 158/81 (106) 93 08/06/20 16:00 109 23 154/73 (100) 94 08/06/20 16:00 100 08/06/20 16:00 109 08/06/20 15:46 Mechanical Ventilator 08/06/20 15:00 100.2 116 23 156/71 (99) 95 08/06/20 14:56 121 23 100 08/06/20 14:00 101.3 117 24 151/71 (97) 93 08/06/20 13:54 101.3 I&O Intake and Output 08/06/20 08/07/20 19:00 07:00 Intake Total 1543 ml 1700 ml Output Total 930 ml 730 ml Balance 613 ml 970 ml IV Total 1123 ml 1100 ml Tube Feeding 420 ml 420 ml Other 180 ml Output Urine Total 930 ml 730 ml Stool Total 0 ml Dressing: saturated Cardiovascular: RSR Respiratory: decreased breath sounds Abdomen: soft, non-tender, present bowel sounds Extremities: no tenderness, no cyanosis Laboratory Tests Test 08/06/20 17:01 08/06/20 19:32 08/06/20 23:05 08/07/20 04:35 POC Whole Blood Glucose 244 MG/DL (74-106) H 292 MG/DL (74-106) H Pending White Blood Count 23.0 K/UL (4.8-10.8) *H Red Blood Count 4.03 M/UL (4.70-6.10) L Hemoglobin 13.0 G/DL (14.2-18.0) L Hematocrit 40.1 % (42.0-52.0) L Mean Corpuscular Volume 100 FL (80-99) H Mean Corpuscular Hemoglobin 32.2 PG (27.0-31.0) H Mean Corpuscular Hemoglobin Concent 32.3 G/DL (32.0-36.0) Red Cell Distribution Width 12.7 % (11.6-14.8) Platelet Count 142 K/UL (150-450) L Mean Platelet Volume 6.9 FL (6.5-10.1) Neutrophils (%) (Auto) % (45.0-75.0) Lymphocytes (%) (Auto) % (20.0-45.0) Monocytes (%) (Auto) % (1.0-10.0) Eosinophils (%) (Auto) % (0.0-3.0) Basophils (%) (Auto) % (0.0-2.0) Differential Total Cells Counted 100 Neutrophils % (Manual) 97 % (45-75) H Lymphocytes % (Manual) 1 % (20-45) L Monocytes % (Manual) 2 % (1-10) Eosinophils % (Manual) 0 % (0-3) Basophils % (Manual) 0 % (0-2) Band Neutrophils 0 % (0-8) Platelet Estimate Decreased L Platelet Morphology Normal Macrocytosis 1+ Sodium Level 149 MMOL/L (136-145) H Potassium Level 4.6 MMOL/L (3.5-5.1) Chloride Level 113 MMOL/L (98-107) H Carbon Dioxide Level 34 MMOL/L (21-32) H Anion Gap 3 mmol/L (5-15) L Blood Urea Nitrogen 73 mg/dL (7-18) H Creatinine 1.9 MG/DL (0.55-1.30) H Estimat Glomerular Filtration Rate 35.8 mL/min (>60) Glucose Level 272 MG/DL (74-106) H Calcium Level 7.7 MG/DL (8.5-10.1) L Phosphorus Level 2.1 MG/DL (2.5-4.9) L Magnesium Level 3.4 MG/DL (1.8-2.4) H Total Bilirubin 0.7 MG/DL (0.2-1.0) Aspartate Amino Transf (AST/SGOT) 86 U/L (15-37) H Alanine Aminotransferase (ALT/SGPT) 628 U/L (12-78) H Alkaline Phosphatase 211 U/L (46-116) H C-Reactive Protein, Quantitative 1.4 mg/dL (0.00-0.90) H Pro-B-Type Natriuretic Peptide 2833 pg/mL (0-125) H Total Protein 5.5 G/DL (6.4-8.2) L Albumin 2.1 G/DL (3.4-5.0) L Globulin 3.4 g/dL Albumin/Globulin Ratio 0.6 (1.0-2.7) L Plan Problems: (1) Hypoxia (2) Bilateral pneumonia (3) Acute respiratory failure with hypoxia Assessment & Plan: ards covid negative as per pulm id input appreciated abd pain likely cramping indigestion from ill ness ppi ordered okay for diet monitor intake am labs will follow with exam and recs acute decline intubated in ICU on vent liver insufficiency acute hepatic in sufficiency renal insufficiency no acute surgical intervention needs resuscitation meds reviewed (4) Bradycardia (5) Malnutrition Assessment & Plan: DAILY ESTIMATED NEEDS: Needs based on [facility] 64.5kg abw 22-28 kcals/kg 0375-6532 total kcals 1.2-2 g protein/kg 77-129 g total protein 25-30 mL/kg 8116-5704 total fluid mLs NUTRITION DIAGNOSIS: Altered nutrition related lab values related to clinical status as evidenced by elev LD(665), elev WBC(trending down 17.7), elev BG(132-176), elevated lytes(K, phos, mg), elev renal labs (BUN73, creat 3.2), elev LFT's ENTERAL NUTRITION RECOMMENDATIONS: As medically able, rec non oral feeds: NEPRO @35ml/hr x24 hrs to provide 840ml, 1512 kcal, 68g pro, 611ml free H2O - With hemodynamic stability, rec OGt feeds to meet est needs. - Start Nepro @15ml/hr for 6 hrs, advance as tolerated 10ml/hr q4-6 hrs to goal - Flush per MD. HOB over 30 degrees - When tolerating TF at goal, add Prosource 1 pack daily to better meet est pro needs. ADDITIONAL RECOMMENDATIONS: 1) recalibrate bed scale wt for accurate CBW 2) Monitor BG, need for NISS 3) TF recs as above when stable for feeds . (6) Shock liver Assessment & Plan: worsening lft's likely hydration resuscitation trend labs (7) ERIKA (acute kidney injury) Vern Quevedo Aug 07, 2020 13:15
--- NOTE | 2020-08-07 13:16 | General Progress Note ---
Subjective ROS Limited/Unobtainable: No Allergies: Coded Allergies: No Known Allergies (Unverified , 07/29/20) Objective Last 24 Hour Vital Signs Date Time Temp Pulse Resp B/P (MAP) Pulse Ox O2 Delivery O2 Flow Rate FiO2 08/07/20 12:03 100 08/07/20 12:00 104 08/07/20 12:00 102 26 172/93 (119) 94 08/07/20 12:00 Mechanical Ventilator 08/07/20 11:00 107 28 169/89 (115) 94 08/07/20 10:00 108 27 162/91 (114) 93 08/07/20 09:45 109 162/91 08/07/20 09:00 98.6 106 27 183/91 (121) 93 08/07/20 08:00 Mechanical Ventilator 08/07/20 08:00 105 08/07/20 08:00 100 08/07/20 08:00 108 26 164/91 (115) 92 08/07/20 07:15 171/89 08/07/20 07:00 110 28 171/89 (116) 92 08/07/20 06:00 103 26 155/79 (104) 93 08/07/20 05:16 123 169/93 08/07/20 05:00 116 30 169/74 (105) 88 08/07/20 04:00 115 08/07/20 04:00 100 08/07/20 04:00 97.9 119 26 151/83 (105) 91 08/07/20 04:00 Mechanical Ventilator 08/07/20 03:20 115 29 100 08/07/20 03:00 121 27 157/84 (108) 89 08/07/20 02:21 181/89 08/07/20 02:00 118 28 171/71 (104) 91 08/07/20 01:00 116 27 167/83 (111) 89 08/07/20 00:00 Mechanical Ventilator 08/07/20 00:00 92 08/07/20 00:00 100 08/07/20 00:00 99.8 112 27 159/67 (97) 91 08/06/20 23:55 118 28 100 08/06/20 23:22 92 154/63 08/06/20 23:00 97 26 162/63 (96) 93 08/06/20 22:00 114 28 164/71 (102) 91 08/06/20 21:00 117 27 166/64 (98) 91 08/06/20 20:57 100.5 08/06/20 20:00 100.5 101 27 149/71 (97) 92 08/06/20 20:00 104 08/06/20 20:00 Mechanical Ventilator 08/06/20 20:00 100 08/06/20 19:00 114 26 Nasal Cannula 100 08/06/20 19:00 100.0 117 28 161/82 (108) 92 08/06/20 18:00 117 28 160/80 (106) 91 08/06/20 17:14 112 158/81 08/06/20 17:00 100.0 112 26 158/81 (106) 93 08/06/20 16:00 109 23 154/73 (100) 94 08/06/20 16:00 100 08/06/20 16:00 109 08/06/20 15:46 Mechanical Ventilator 08/06/20 15:00 100.2 116 23 156/71 (99) 95 08/06/20 14:56 121 23 100 08/06/20 14:00 101.3 117 24 151/71 (97) 93 08/06/20 13:54 101.3 Intake and Output 08/06/20 08/07/20 19:00 07:00 Intake Total 1543 ml 1700 ml Output Total 930 ml 730 ml Balance 613 ml 970 ml IV Total 1123 ml 1100 ml Tube Feeding 420 ml 420 ml Other 180 ml Output Urine Total 930 ml 730 ml Stool Total 0 ml Laboratory Tests 08/06/20 17:01: POC Whole Blood Glucose 244H 08/06/20 19:32: POC Whole Blood Glucose 292H 08/06/20 23:05: POC Whole Blood Glucose [Pending] 08/07/20 04:35: White Blood Count 23.0*H, Red Blood Count 4.03L, Hemoglobin 13.0L, Hematocrit 40.1L, Mean Corpuscular Volume 100H, Mean Corpuscular Hemoglobin 32.2H, Mean Corpuscular Hemoglobin Concent 32.3, Red Cell Distribution Width 12.7, Platelet Count 142L, Mean Platelet Volume 6.9, Neutrophils (%) (Auto) , Lymphocytes (%) (Auto) , Monocytes (%) (Auto) , Eosinophils (%) (Auto) , Basophils (%) (Auto) , Differential Total Cells Counted 100, Neutrophils % (Manual) 97H, Lymphocytes % (Manual) 1L, Monocytes % (Manual) 2, Eosinophils % (Manual) 0, Basophils % (Manual) 0, Band Neutrophils 0, Platelet Estimate DecreasedL, Platelet Morphology Normal, Macrocytosis 1+, Sodium Level 149H, Potassium Level 4.6, Chloride Level 113H, Carbon Dioxide Level 34H, Anion Gap 3L, Blood Urea Nitrogen 73H, Creatinine 1.9H, Estimat Glomerular Filtration Rate 35.8, Glucose Level 272H, Calcium Level 7.7L, Phosphorus Level 2.1L, Magnesium Level 3.4H, Total Bilirubin 0.7, Aspartate Amino Transf (AST/SGOT) 86H, Alanine Aminotransferase (ALT/SGPT) 628H, Alkaline Phosphatase 211H, C-Reactive Protein, Quantitative 1.4H, Pro-B-Type Natriuretic Peptide 2833H, Total Protein 5.5L, Albumin 2.1L, Globulin 3.4, Albumin/Globulin Ratio 0.6L Height (Feet): 5 Height (Inches): 5.00 Weight (Pounds): 160 General Appearance: no apparent distress EENT: normal ENT inspection Neck: supple Cardiovascular: normal rate Respiratory/Chest: decreased breath sounds Abdomen: normal bowel sounds, non tender, soft Extremities: non-tender Assessment/Plan Problem List: (1) Hypoxia ICD Codes: R09.02 - Hypoxemia SNOMED: 484920100 (2) Bilateral pneumonia ICD Codes: J18.9 - Pneumonia, unspecified organism SNOMED: 240324139, 117952457 (3) Acute respiratory failure with hypoxia ICD Codes: J96.01 - Acute respiratory failure with hypoxia SNOMED: 07357228, 446170957 (4) Bradycardia ICD Codes: R00.1 - Bradycardia, unspecified SNOMED: 21354464 (5) Malnutrition ICD Codes: E46 - Unspecified protein-calorie malnutrition SNOMED: 52255679 (6) Shock liver ICD Codes: K72.00 - Acute and subacute hepatic failure without coma SNOMED: 534422698 (7) ERIKA (acute kidney injury) ICD Codes: N17.9 - Acute kidney failure, unspecified SNOMED: 5361077, 73711790 Status: unchanged Assessment/Plan: NGTF covid care fu labs abx per ID shock liver>>>fu LFTS bowel regimen poor prognosis will fu Enoch Varner MD Aug 07, 2020 13:16
--- NOTE | 2020-08-07 15:19 | NUR ---
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 BUN 73, Creatinine 1.9 IS: Solumedrol IV q 12 h Rocephin IV QD Cardizem PO Q 8 h Lovenox SQ QD Protonix IVP QD ICU Status
[2020-08-07] MEDS ORDERED: 1/2 NS 1000ml IV ONE (15:40)
[2020-08-07] MEDS ORDERED: D5 1/2NS 1000ml IV ONE (15:40)
[2020-08-07] MEDS ORDERED: D5NS 1000ml IV ONE (15:40)
--- NOTE | 2020-08-07 16:58 | Pulmonology Progress Note ---
Subjective ROS Limited/Unobtainable: No Interval Events: Intubated 08/01/20 Constitutional: Reports: fever, other - since yesterday HEENT: Repors: no symptoms Respiratory: Reports: no symptoms Cardiovascular: Reports: no symptoms Gastrointestinal/Abdominal: Reports: no symptoms; Denies: nausea, vomiting, diarrhea Musculoskeletal: Denies: pain Allergies: Coded Allergies: No Known Allergies (Unverified , 07/29/20) All Systems: reviewed and negative except above Objective Last 24 Hour Vital Signs Date Time Temp Pulse Resp B/P (MAP) Pulse Ox O2 Delivery O2 Flow Rate FiO2 08/07/20 16:00 100 08/07/20 16:00 Mechanical Ventilator 08/07/20 16:00 105 08/07/20 16:00 102 29 172/96 (121) 92 08/07/20 15:00 105 30 100 08/07/20 15:00 104 29 167/85 (112) 92 08/07/20 14:17 100 170/89 08/07/20 14:00 105 29 177/79 (111) 91 08/07/20 13:00 97.5 100 27 175/90 (118) 93 08/07/20 12:03 100 08/07/20 12:00 104 08/07/20 12:00 102 26 172/93 (119) 94 08/07/20 12:00 Mechanical Ventilator 08/07/20 11:00 107 28 169/89 (115) 94 08/07/20 11:00 102 25 100 08/07/20 10:00 108 27 162/91 (114) 93 08/07/20 09:45 109 162/91 08/07/20 09:00 98.6 106 27 183/91 (121) 93 08/07/20 08:00 Mechanical Ventilator 08/07/20 08:00 105 08/07/20 08:00 100 08/07/20 08:00 108 26 164/91 (115) 92 08/07/20 07:15 171/89 08/07/20 07:00 107 29 100 08/07/20 07:00 110 28 171/89 (116) 92 08/07/20 06:00 103 26 155/79 (104) 93 08/07/20 05:16 123 169/93 08/07/20 05:00 116 30 169/74 (105) 88 08/07/20 04:00 115 08/07/20 04:00 100 08/07/20 04:00 97.9 119 26 151/83 (105) 91 08/07/20 04:00 Mechanical Ventilator 08/07/20 03:20 115 29 100 08/07/20 03:00 121 27 157/84 (108) 89 08/07/20 02:21 181/89 08/07/20 02:00 118 28 171/71 (104) 91 08/07/20 01:00 116 27 167/83 (111) 89 08/07/20 00:00 Mechanical Ventilator 08/07/20 00:00 92 08/07/20 00:00 100 08/07/20 00:00 99.8 112 27 159/67 (97) 91 08/06/20 23:55 118 28 100 08/06/20 23:22 92 154/63 08/06/20 23:00 97 26 162/63 (96) 93 08/06/20 22:00 114 28 164/71 (102) 91 08/06/20 21:00 117 27 166/64 (98) 91 08/06/20 20:57 100.5 08/06/20 20:00 100.5 101 27 149/71 (97) 92 08/06/20 20:00 104 08/06/20 20:00 Mechanical Ventilator 08/06/20 20:00 100 08/06/20 19:00 114 26 Nasal Cannula 100 08/06/20 19:00 100.0 117 28 161/82 (108) 92 08/06/20 18:00 117 28 160/80 (106) 91 08/06/20 17:14 112 158/81 08/06/20 17:00 100.0 112 26 158/81 (106) 93 Intake and Output 08/06/20 08/07/20 19:00 07:00 Intake Total 1543 ml 1700 ml Output Total 930 ml 730 ml Balance 613 ml 970 ml IV Total 1123 ml 1100 ml Tube Feeding 420 ml 420 ml Other 180 ml Output Urine Total 930 ml 730 ml Stool Total 0 ml General Appearance: no acute distress HEENT: normocephalic, atraumatic Respiratory: lungs clear Cardiovascular: normal rate, regular rhythm Abdomen: soft, non tender Microbiology Date/Time Source Procedure Growth Status 08/05/20 18:00 Sputum Expectorated Gram Stain - Final Complete 08/05/20 18:00 Sputum Expectorated Sputum Culture - Final NORMAL UPPER RESPIRATORY CAITLIN PRESENT Complete Laboratory Tests 08/06/20 17:01: POC Whole Blood Glucose 244H 08/06/20 19:32: POC Whole Blood Glucose 292H 08/06/20 23:05: POC Whole Blood Glucose [Pending] 08/07/20 04:35: White Blood Count 23.0*H, Red Blood Count 4.03L, Hemoglobin 13.0L, Hematocrit 40.1L, Mean Corpuscular Volume 100H, Mean Corpuscular Hemoglobin 32.2H, Mean Corpuscular Hemoglobin Concent 32.3, Red Cell Distribution Width 12.7, Platelet Count 142L, Mean Platelet Volume 6.9, Neutrophils (%) (Auto) , Lymphocytes (%) (Auto) , Monocytes (%) (Auto) , Eosinophils (%) (Auto) , Basophils (%) (Auto) , Differential Total Cells Counted 100, Neutrophils % (Manual) 97H, Lymphocytes % (Manual) 1L, Monocytes % (Manual) 2, Eosinophils % (Manual) 0, Basophils % (Manual) 0, Band Neutrophils 0, Platelet Estimate DecreasedL, Platelet Morphology Normal, Macrocytosis 1+, Sodium Level 149H, Potassium Level 4.6, Chloride Level 113H, Carbon Dioxide Level 34H, Anion Gap 3L, Blood Urea Nitrogen 73H, Creatinine 1.9H, Estimat Glomerular Filtration Rate 35.8, Glucose Level 272H, Calcium Level 7.7L, Phosphorus Level 2.1L, Magnesium Level 3.4H, Total Bilirubin 0.7, Aspartate Amino Transf (AST/SGOT) 86H, Alanine Aminotransferase (ALT/SGPT) 628H, Alkaline Phosphatase 211H, C-Reactive Protein, Quantitative 1.4H, Pro-B-Type Natriuretic Peptide 2833H, Total Protein 5.5L, Albumin 2.1L, Globulin 3.4, Albumin/Globulin Ratio 0.6L Current Medications Medications (Trade) Dose Ordered Sig/Fabiano Route PRN Reason Start Time Stop Time Status Last Admin Dose Admin Acetaminophen (Tylenol) 650 mg Q4H PRN NG Temp >100.5 08/03/20 04:15 09/02/20 04:14 08/06/20 20:27 Acetaminophen (Tylenol) 650 mg Q4H PRN RECTAL Temp >100.5 08/01/20 20:30 08/31/20 20:29 08/02/20 10:28 Albuterol Sulfate (Proventil MDI) 2 puff Q4H PRN INH Shortness of Breath 07/29/20 22:45 10/27/20 22:44 Ceftriaxone Sodium 1 gm/ Dextrose 55 ml @ 110 mls/hr Q24H IVPB 08/07/20 10:00 08/14/20 09:59 08/07/20 10:20 Cetylpyridinium Chloride (Cepacol) 1 lozg Q2H PRN [place] For Cough 07/30/20 21:00 10/28/20 20:59 08/01/20 08:47 Clonidine HCl (Catapres Tab) 0.1 mg Q2H PRN ORAL SBP > 170mmHg 08/04/20 09:45 11/02/20 09:44 08/07/20 07:15 Dextrose 1,000 ml @ 100 mls/hr Q10H IV 08/06/20 12:15 09/05/20 12:14 08/07/20 08:39 Dextrose (Dextrose 50%) 25 ml Q30M PRN IV Hypoglycemia 08/06/20 10:45 11/04/20 10:44 Dextrose (Dextrose 50%) 50 ml Q30M PRN IV Hypoglycemia 08/06/20 10:45 11/04/20 10:44 Diltiazem HCl (Cardizem Tab) 90 mg EVERY 8 HOURS ORAL 08/07/20 09:45 09/03/20 12:14 08/07/20 14:17 Docusate Sodium (Colace) 100 mg TWICE A DAY ORAL 08/06/20 18:00 09/05/20 17:59 08/07/20 08:39 Enoxaparin Sodium (Lovenox) 30 mg DAILY SUBQ 08/02/20 10:00 10/31/20 09:59 08/07/20 08:39 Guaifenesin/ Dextromethorphan (Robitussin DM Syrup) 15 ml Q6H PRN ORAL For Cough 07/31/20 08:30 10/29/20 08:29 08/01/20 08:47 Insulin Aspart (NovoLOG) Q6HR SUBQ 08/06/20 12:00 11/04/20 11:59 08/07/20 05:15 Insulin Detemir (Levemir) 20 units Q12HR SUBQ 08/07/20 09:00 11/04/20 20:59 08/07/20 08:49 Methylprednisolone Sodium Succinate (Solu-MEDROL) 40 mg EVERY 12 HOURS IVP 08/04/20 12:30 11/02/20 12:29 08/07/20 08:38 Pantoprazole (Protonix) 40 mg DAILY IVP 08/06/20 10:00 09/05/20 09:59 08/07/20 08:39 Polyethylene Glycol (Miralax) 17 gm BEDTIME ORAL 08/06/20 21:00 09/05/20 20:59 08/06/20 20:27 Assessment/Plan Assessment/Plan 1. Respiratory Failure - intubated 08/01/20 - oxygenating better - Continue PEEP 12; now decreased to 5 - continue 100% Fio2; will attempt to decrease further 2. Hyponatremia - per primary MD 3. Hyperglycemia - BG control 5. Pneumonia - abx per ID - on dexamethasone (07/30-) - now on remdesivir per ID (08/01-) 6. COVID-19 rapid negative - COVID-19 PCR positive 7. Elevated inflammatory markers; ferritin, D-Dimer - likely secondary to #5 - On Lovenox Discussed with Milton Arambula MD Aug 07, 2020 16:58
--- NOTE | 2020-08-07 19:20 | NUR ---
NURSE NOTES: Received patient from CARLOS Mcguire. patient is obtunded. sinus tachycardia (HR 104) on the monitor. ETT 7.5, 24cm at the lip. AC 16, TV 550, FiO2 100%, PEEP 8, saturation 95%. OGT in place and running Nepro @35ml/hr. arteaga in place and draining well to gravity. LFA 20G running D5W @100ml/hr. bed to lowest position and locked. call light within easy reach. side rails up x2. will continue plan of care.
--- NOTE | 2020-08-07 20:00 | NUR ---
NURSE NOTES: Noted patient BP 184/92 and temp 100.5. clonidine PRN given and tylenol PRN for fever given. will reassess
[2020-08-07] MEDS: Miralax 17gm pkt ORAL SCH (20:15)
[2020-08-07] MEDS: Acetaminophen 650mg/20.3ml NG PRN (20:17)
--- NOTE | 2020-08-07 22:00 | NUR ---
NURSE NOTES: Patient remains to have a temp of 100.5. cooling measures applied.
--- NOTE | 2020-08-07 23:30 | NUR ---
NURSE NOTES: Noted BP 178/76. clonidine PRN given. will monitor closely
[2020-08-08] VITALS (38 sets, daily range): BP systolic 84–176; BP diastolic 43–113
[2020-08-08] MEDS: Acetaminophen 650mg/20.3ml NG PRN ×2 (01:02→04:49)
--- NOTE | 2020-08-08 01:08 | NUR ---
NURSE NOTES: Noted patient temp 101.1. tylenol given and cooling measures continued. will reassess.
--- NOTE | 2020-08-08 02:48 | NUR ---
NURSE NOTES: noted patient went rapid afib with HR 170-205. BP140/115, temp 102.5. contacted Dr. Bains, waiting for call back
--- NOTE | 2020-08-08 03:09 | NUR ---
NURSE NOTES: Dr. Bains called back and ordered cardizem drip 10mg/hr. will carry out orders and monitor patient closely.
[2020-08-08] MEDS ORDERED: dilTIAZem Premix 125mg/125ml 125 ML IVPB ONE (03:28)
[2020-08-08] MEDS ORDERED: dilTIAZem Premix 125mg/125ml 125 ML IVPB SCH (03:30)
--- NOTE | 2020-08-08 03:39 | NUR ---
NURSE NOTES: Cardizem drip started 10mg/hr. will monitor closely.
--- NOTE | 2020-08-08 04:27 | NUR ---
NURSE NOTES: cardizem drip 10mg/hr. BP 140/77, HR 114. will monitor closely.
[2020-08-08 05:28] LABS: HEMATOCRIT 44.2 % (42.0-52.0); MEAN CORPUSCULAR VOLUME 100 FL (80-99); PLATELET COUNT 183 K/UL (150-450); RED CELL DISTRIBUTION WIDTH 12.6 % (11.6-14.8)
[2020-08-08] MEDS: dilTIAZem HCl 90mg tab ORAL SCH ×2 (05:46→12:57)
[2020-08-08 05:54] LABS: ALBUMIN 2.2 G/DL (3.4-5.0); ALBUMIN/GLOBULIN RATIO 0.6 (1.0-2.7); BILIRUBIN,TOTAL 0.6 MG/DL (0.2-1.0); CALCIUM 8.3 MG/DL (8.5-10.1); CREATININE 2.1 MG/DL (0.55-1.30); POTASSIUM 5.1 MMOL/L (3.5-5.1)
[2020-08-08 06:00] LABS: WHITE BLOOD COUNT 27.6 K/UL (4.8-10.8)
[2020-08-08 06:04] LABS: PHOSPHORUS 4.1 MG/DL (2.5-4.9)
[2020-08-08 06:05] LABS: AMYLASE 72 U/L (25-115)
--- NOTE | 2020-08-08 06:39 | General Progress Note ---
Subjective ROS Limited/Unobtainable: Yes Allergies: Coded Allergies: No Known Allergies (Unverified , 07/29/20) Subjective events note interval notes reviewed glucose improved but still elevated Item Value Date Time Bedside Blood Glucose 234 mg/dl H 08/08/20 0600 Bedside Blood Glucose 303 mg/dl H 08/08/20 0000 Bedside Blood Glucose 252 mg/dl H 08/07/20 2020 Bedside Blood Glucose 211 mg/dl H 08/07/20 1805 Bedside Blood Glucose 136 mg/dl H 08/07/20 1158 Bedside Blood Glucose 212 mg/dl H 08/07/20 0849 Objective Last 24 Hour Vital Signs Date Time Temp Pulse Resp B/P (MAP) Pulse Ox O2 Delivery O2 Flow Rate FiO2 08/08/20 06:00 98.7 98 16 122/68 (86) 97 08/08/20 05:46 103 129/71 08/08/20 05:30 98 19 129/71 (90) 97 08/08/20 05:19 98.7 08/08/20 05:00 110 17 141/73 (95) 97 08/08/20 04:30 113 16 150/78 (102) 97 08/08/20 04:00 117 08/08/20 04:00 100 08/08/20 04:00 101.1 119 16 140/87 (104) 97 08/08/20 04:00 Mechanical Ventilator 08/08/20 03:58 120 16 100 08/08/20 03:30 196 16 157/113 (128) 96 08/08/20 03:00 201 16 138/104 (115) 97 08/08/20 02:00 102.5 90 25 168/82 (110) 97 08/08/20 01:32 102.5 08/08/20 01:00 86 23 176/82 (113) 96 08/08/20 00:00 100 08/08/20 00:00 Mechanical Ventilator 08/08/20 00:00 91 08/08/20 00:00 101.1 84 23 168/82 (110) 95 08/07/20 23:57 83 25 100 08/07/20 23:20 178/76 08/07/20 23:00 91 25 178/76 (110) 95 08/07/20 22:00 90 28 176/90 (118) 93 08/07/20 21:26 107 176/90 08/07/20 21:00 102 26 169/86 (113) 95 08/07/20 20:47 100.5 08/07/20 20:17 184/94 08/07/20 20:00 Mechanical Ventilator 08/07/20 20:00 106 27 182/107 (132) 95 08/07/20 20:00 100 08/07/20 20:00 107 08/07/20 19:58 107 26 100 08/07/20 19:57 109 27 100 08/07/20 19:00 100.5 109 27 184/94 (124) 94 08/07/20 18:00 101 25 173/88 (116) 95 08/07/20 17:00 99.8 103 27 178/87 (117) 94 08/07/20 16:00 100 08/07/20 16:00 Mechanical Ventilator 08/07/20 16:00 105 08/07/20 16:00 102 29 172/96 (121) 92 08/07/20 15:00 105 30 100 08/07/20 15:00 104 29 167/85 (112) 92 08/07/20 14:17 100 170/89 08/07/20 14:00 105 29 177/79 (111) 91 08/07/20 13:00 97.5 100 27 175/90 (118) 93 08/07/20 12:03 100 08/07/20 12:00 104 08/07/20 12:00 102 26 172/93 (119) 94 08/07/20 12:00 Mechanical Ventilator 08/07/20 11:00 107 28 169/89 (115) 94 08/07/20 11:00 102 25 100 08/07/20 10:00 108 27 162/91 (114) 93 08/07/20 09:45 109 162/91 08/07/20 09:00 98.6 106 27 183/91 (121) 93 08/07/20 08:00 Mechanical Ventilator 08/07/20 08:00 105 08/07/20 08:00 100 08/07/20 08:00 108 26 164/91 (115) 92 08/07/20 07:15 171/89 08/07/20 07:00 107 29 100 08/07/20 07:00 110 28 171/89 (116) 92 Intake and Output 08/07/20 08/08/20 19:00 07:00 Intake Total 1975 ml 1805 ml Output Total 690 ml 1645 ml Balance 1285 ml 160 ml Free Water 300 ml 300 ml IV Total 1255 ml 1120 ml Tube Feeding 420 ml 385 ml Output Urine Total 690 ml 1645 ml Laboratory Tests 08/08/20 04:00: White Blood Count 27.6*H, Red Blood Count 4.40L, Hemoglobin 14.0L, Hematocrit 44.2, Mean Corpuscular Volume 100H, Mean Corpuscular Hemoglobin 31.8H, Mean Corpuscular Hemoglobin Concent 31.7L, Red Cell Distribution Width 12.6, Platelet Count 183, Mean Platelet Volume 6.4L, Neutrophils (%) (Auto) , Lymphocytes (%) (Auto) , Monocytes (%) (Auto) , Eosinophils (%) (Auto) , Basophils (%) (Auto) , Neutrophils % (Manual) [Pending], Lymphocytes % (Manual) [Pending], Platelet Estimate [Pending], Platelet Morphology [Pending], Sodium Level 150H, Potassium Level 5.1, Chloride Level 113H, Carbon Dioxide Level 37H, Anion Gap 0L, Blood Urea Nitrogen 68H, Creatinine 2.1H, Estimat Glomerular Filtration Rate 31.9, Glucose Level 261H, Uric Acid 5.6, Calcium Level 8.3L, Phosphorus Level 4.1, Magnesium Level 3.2H, Total Bilirubin 0.6, Aspartate Amino Transf (AST/SGOT) 64H , Alanine Aminotransferase (ALT/SGPT) 441H, Alkaline Phosphatase 190H, C- Reactive Protein, Quantitative 0.9, Pro-B-Type Natriuretic Peptide 3357H, Total Protein 5.8L, Albumin 2.2L, Globulin 3.6, Albumin/Globulin Ratio 0.6L, Amylase Level 72, Lipase 352 08/08/20 05:53: POC Whole Blood Glucose [Pending] Height (Feet): 5 Height (Inches): 5.00 Weight (Pounds): 160 Objective Current Medications Medications (Trade) Dose Ordered Sig/Fabiano Route PRN Reason Start Time Stop Time Status Last Admin Dose Admin Acetaminophen (Tylenol) 650 mg Q4H PRN NG Temp >100.5 08/03/20 04:15 09/02/20 04:14 08/08/20 04:49 Acetaminophen (Tylenol) 650 mg Q4H PRN RECTAL Temp >100.5 08/01/20 20:30 08/31/20 20:29 08/02/20 10:28 Albuterol Sulfate (Proventil MDI) 2 puff Q4H PRN INH Shortness of Breath 07/29/20 22:45 10/27/20 22:44 Ceftriaxone Sodium 1 gm/ Dextrose 55 ml @ 110 mls/hr Q24H IVPB 08/07/20 10:00 08/14/20 09:59 08/07/20 10:20 Cetylpyridinium Chloride (Cepacol) 1 lozg Q2H PRN [place] For Cough 07/30/20 21:00 10/28/20 20:59 08/01/20 08:47 Clonidine HCl (Catapres Tab) 0.1 mg Q2H PRN ORAL SBP > 170mmHg 08/04/20 09:45 11/02/20 09:44 08/07/20 23:20 Dextrose 1,000 ml @ 100 mls/hr Q10H IV 08/06/20 12:15 09/05/20 12:14 08/08/20 04:22 Dextrose (Dextrose 50%) 25 ml Q30M PRN IV Hypoglycemia 08/06/20 10:45 11/04/20 10:44 Dextrose (Dextrose 50%) 50 ml Q30M PRN IV Hypoglycemia 08/06/20 10:45 11/04/20 10:44 Diltiazem HCl 125 ml @ 10 mls/hr Q24H IVPB 08/08/20 03:30 08/09/20 03:29 08/08/20 03:39 Diltiazem HCl (Cardizem Tab) 90 mg EVERY 8 HOURS ORAL 08/07/20 09:45 09/03/20 12:14 08/08/20 05:46 Docusate Sodium (Colace) 100 mg TWICE A DAY ORAL 08/06/20 18:00 09/05/20 17:59 08/07/20 18:00 Enoxaparin Sodium (Lovenox) 30 mg DAILY SUBQ 08/02/20 10:00 10/31/20 09:59 08/07/20 08:39 Guaifenesin/ Dextromethorphan (Robitussin DM Syrup) 15 ml Q6H PRN [place]AL For Cough 07/31/20 08:30 10/29/20 08:29 08/01/20 08:47 Insulin Aspart (NovoLOG) Q6HR SUBQ 08/06/20 12:00 11/04/20 11:59 08/07/20 23:48 Insulin Detemir (Levemir) 20 units Q12HR SUBQ 08/07/20 09:00 11/04/20 20:59 08/07/20 20:20 Methylprednisolone Sodium Succinate (Solu-MEDROL) 40 mg EVERY 12 HOURS IVP 08/04/20 12:30 11/02/20 12:29 08/07/20 20:15 Pantoprazole (Protonix) 40 mg DAILY IVP 08/06/20 10:00 09/05/20 09:59 08/07/20 08:39 Polyethylene Glycol (Miralax) 17 gm BEDTIME ORAL 08/06/20 21:00 09/05/20 20:59 08/07/20 20:15 Assessment/Plan Problem List: (1) Diabetes mellitus out of control ICD Codes: E11.65 - Type 2 diabetes mellitus with hyperglycemia SNOMED: 90639996, 874053193 (2) Acute respiratory failure with hypoxia ICD Codes: J96.01 - Acute respiratory failure with hypoxia SNOMED: 62717411, 697171960 (3) Bilateral pneumonia ICD Codes: J18.9 - Pneumonia, unspecified organism SNOMED: 923182438, 261208903 Status: unchanged Assessment/Plan: increase Levemir to 24 units bid continue Novolog sliding scale every 6 hours Jeffrey Sinclair MD Aug 08, 2020 06:39
[2020-08-08] MEDS: NovoLOG Insulin Flexpen SUBQ SCH ×3 (06:41→18:10)
--- NOTE | 2020-08-08 06:54 | Hematology/Onc Progress Note ---
Assessment/Plan Assessment/Plan Assessment and Recs # Leukocytosis with Acute respiratory failure with hypoxia/covid19++ --> wbc 27-->20-->19-->23-->28 --> ABx ctx --> steriods as well --> pulm and ID # Thrombocytopenia is likely related to covid19 --> plt 83-->118-->183 --> trend as needed --> transfuse prn --> hep and hiv pending # Respiratory Failure --> intubated 08/01/20 --> oxygenating better --> Continue PEEP 12; now decreased to 5 # AMs --> as per neuro # Hyponatremia --> per primary MD # Hyperglycemia --> BG control # Pneumonia --> abx per ID --> on dexamethasone (07/30-) --> now on remdesivir per ID (08/01-) # Covid19 with Elevated inflammatory markers; ferritin, D-Dimer --> On Lovenox # Dvt ppx lovenox sq Appreciate consultation and dw RN Subjective Cardiovascular: Denies: no symptoms, chest pain, edema, irregular heart rate, lightheadedness, palpitations, syncope, other Respiratory: Denies: no symptoms, cough, shortness of breath, SOB with excertion, SOB at rest, sputum, wheezing, other Gastrointestinal/Abdominal: Denies: no symptoms, abdomen distended, abdominal pain, black stools, tarry stools, blood in stool, constipated, diarrhea, di fficulty swallowing, nausea, poor appetite, poor fluid intake, rectal bleeding, vomiting, other Allergies: Coded Allergies: No Known Allergies (Unverified , 07/29/20) All Systems: reviewed and negative except above Subjective 08/06 remains altered, on vent, poorly responsive, as per Sophia Polanco, to inform son 08/07 labs noted, on vent, with ogt, meds reviewed, wbc elev, on steriods 08/08 remains on vent, on dex and ogt, no bleeding, on ctx Objective Objective Current Medications Medications (Trade) Dose Ordered Sig/Fabiano Route PRN Reason Start Time Stop Time Status Last Admin Dose Admin Acetaminophen (Tylenol) 650 mg Q4H PRN NG Temp >100.5 08/03/20 04:15 09/02/20 04:14 08/08/20 04:49 Acetaminophen (Tylenol) 650 mg Q4H PRN RECTAL Temp >100.5 08/01/20 20:30 08/31/20 20:29 08/02/20 10:28 Albuterol Sulfate (Proventil MDI) 2 puff Q4H PRN INH Shortness of Breath 07/29/20 22:45 10/27/20 22:44 Ceftriaxone Sodium 1 gm/ Dextrose 55 ml @ 110 mls/hr Q24H IVPB 08/07/20 10:00 08/14/20 09:59 08/07/20 10:20 Cetylpyridinium Chloride (Cepacol) 1 lozg Q2H PRN [place] For Cough 07/30/20 21:00 10/28/20 20:59 08/01/20 08:47 Clonidine HCl (Catapres Tab) 0.1 mg Q2H PRN ORAL SBP > 170mmHg 08/04/20 09:45 11/02/20 09:44 08/07/20 23:20 Dextrose 1,000 ml @ 100 mls/hr Q10H IV 08/06/20 12:15 09/05/20 12:14 08/08/20 04:22 Dextrose (Dextrose 50%) 25 ml Q30M PRN IV Hypoglycemia 08/06/20 10:45 11/04/20 10:44 Dextrose (Dextrose 50%) 50 ml Q30M PRN IV Hypoglycemia 08/06/20 10:45 11/04/20 10:44 Diltiazem HCl 125 ml @ 10 mls/hr Q24H IVPB 08/08/20 03:30 08/09/20 03:29 08/08/20 03:39 Diltiazem HCl (Cardizem Tab) 90 mg EVERY 8 HOURS ORAL 08/07/20 09:45 09/03/20 12:14 08/08/20 05:46 Docusate Sodium (Colace) 100 mg TWICE A DAY ORAL 08/06/20 18:00 09/05/20 17:59 08/07/20 18:00 Enoxaparin Sodium (Lovenox) 30 mg DAILY SUBQ 08/02/20 10:00 10/31/20 09:59 08/07/20 08:39 Guaifenesin/ Dextromethorphan (Robitussin DM Syrup) 15 ml Q6H PRN [place]AL For Cough 07/31/20 08:30 10/29/20 08:29 08/01/20 08:47 Insulin Aspart (NovoLOG) Q6HR SUBQ 08/06/20 12:00 11/04/20 11:59 08/08/20 06:41 Insulin Detemir (Levemir) 24 units Q12HR SUBQ 08/08/20 09:00 11/04/20 20:59 Methylprednisolone Sodium Succinate (Solu-MEDROL) 40 mg EVERY 12 HOURS IVP 08/04/20 12:30 11/02/20 12:29 08/07/20 20:15 Pantoprazole (Protonix) 40 mg DAILY IVP 08/06/20 10:00 09/05/20 09:59 08/07/20 08:39 Polyethylene Glycol (Miralax) 17 gm BEDTIME ORAL 08/06/20 21:00 09/05/20 20:59 08/07/20 20:15 Last 24 Hour Vital Signs Date Time Temp Pulse Resp B/P (MAP) Pulse Ox O2 Delivery O2 Flow Rate FiO2 08/08/20 06:00 98.7 98 16 122/68 (86) 97 08/08/20 05:46 103 129/71 08/08/20 05:30 98 19 129/71 (90) 97 08/08/20 05:19 98.7 08/08/20 05:00 110 17 141/73 (95) 97 08/08/20 04:30 113 16 150/78 (102) 97 08/08/20 04:00 117 08/08/20 04:00 100 08/08/20 04:00 101.1 119 16 140/87 (104) 97 08/08/20 04:00 Mechanical Ventilator 08/08/20 03:58 120 16 100 08/08/20 03:30 196 16 157/113 (128) 96 08/08/20 03:00 201 16 138/104 (115) 97 08/08/20 02:00 102.5 90 25 168/82 (110) 97 08/08/20 01:32 102.5 08/08/20 01:00 86 23 176/82 (113) 96 08/08/20 00:00 100 08/08/20 00:00 Mechanical Ventilator 08/08/20 00:00 91 08/08/20 00:00 101.1 84 23 168/82 (110) 95 08/07/20 23:57 83 25 100 08/07/20 23:20 178/76 08/07/20 23:00 91 25 178/76 (110) 95 08/07/20 22:00 90 28 176/90 (118) 93 08/07/20 21:26 107 176/90 08/07/20 21:00 102 26 169/86 (113) 95 08/07/20 20:47 100.5 08/07/20 20:17 184/94 08/07/20 20:00 Mechanical Ventilator 08/07/20 20:00 106 27 182/107 (132) 95 08/07/20 20:00 100 08/07/20 20:00 107 08/07/20 19:58 107 26 100 08/07/20 19:57 109 27 100 08/07/20 19:00 100.5 109 27 184/94 (124) 94 08/07/20 18:00 101 25 173/88 (116) 95 08/07/20 17:00 99.8 103 27 178/87 (117) 94 08/07/20 16:00 100 08/07/20 16:00 Mechanical Ventilator 08/07/20 16:00 105 08/07/20 16:00 102 29 172/96 (121) 92 08/07/20 15:00 105 30 100 08/07/20 15:00 104 29 167/85 (112) 92 08/07/20 14:17 100 170/89 08/07/20 14:00 105 29 177/79 (111) 91 08/07/20 13:00 97.5 100 27 175/90 (118) 93 08/07/20 12:03 100 08/07/20 12:00 104 08/07/20 12:00 102 26 172/93 (119) 94 08/07/20 12:00 Mechanical Ventilator 08/07/20 11:00 107 28 169/89 (115) 94 08/07/20 11:00 102 25 100 08/07/20 10:00 108 27 162/91 (114) 93 08/07/20 09:45 109 162/91 08/07/20 09:00 98.6 106 27 183/91 (121) 93 08/07/20 08:00 Mechanical Ventilator 08/07/20 08:00 105 08/07/20 08:00 100 08/07/20 08:00 108 26 164/91 (115) 92 08/07/20 07:15 171/89 08/07/20 07:00 107 29 100 08/07/20 07:00 110 28 171/89 (116) 92 08/07/20 06:00 103 26 155/79 (104) 93 08/07/20 05:16 123 169/93 08/07/20 05:00 116 30 169/74 (105) 88 08/07/20 04:00 115 08/07/20 04:00 100 08/07/20 04:00 97.9 119 26 151/83 (105) 91 08/07/20 04:00 Mechanical Ventilator 08/07/20 03:20 115 29 100 08/07/20 03:00 121 27 157/84 (108) 89 08/07/20 02:21 181/89 08/07/20 02:00 118 28 171/71 (104) 91 08/07/20 01:00 116 27 167/83 (111) 89 08/07/20 00:00 Mechanical Ventilator 08/07/20 00:00 92 08/07/20 00:00 100 08/07/20 00:00 99.8 112 27 159/67 (97) 91 08/06/20 23:55 118 28 100 08/06/20 23:22 92 154/63 08/06/20 23:00 97 26 162/63 (96) 93 08/06/20 22:00 114 28 164/71 (102) 91 08/06/20 21:00 117 27 166/64 (98) 91 08/06/20 20:57 100.5 08/06/20 20:00 100.5 101 27 149/71 (97) 92 08/06/20 20:00 104 08/06/20 20:00 Mechanical Ventilator 08/06/20 20:00 100 08/06/20 19:00 114 26 Nasal Cannula 100 08/06/20 19:00 100.0 117 28 161/82 (108) 92 08/06/20 18:00 117 28 160/80 (106) 91 08/06/20 17:14 112 158/81 08/06/20 17:00 100.0 112 26 158/81 (106) 93 08/06/20 16:00 109 23 154/73 (100) 94 08/06/20 16:00 100 08/06/20 16:00 109 08/06/20 15:46 Mechanical Ventilator 08/06/20 15:00 100.2 116 23 156/71 (99) 95 08/06/20 14:56 121 23 100 08/06/20 14:00 101.3 117 24 151/71 (97) 93 08/06/20 13:54 101.3 08/06/20 13:00 100.9 122 24 157/80 (105) 93 08/06/20 12:28 120 153/77 08/06/20 12:00 117 23 153/77 (102) 94 08/06/20 12:00 120 08/06/20 11:56 100 08/06/20 11:56 Mechanical Ventilator 08/06/20 10:53 119 25 158/79 (105) 93 08/06/20 10:45 121 25 100 08/06/20 10:00 125 30 169/81 (110) 90 08/06/20 09:00 99.4 118 27 161/77 (105) 91 08/06/20 08:00 119 08/06/20 08:00 Mechanical Ventilator 08/06/20 08:00 121 29 174/88 (116) 92 08/06/20 08:00 100 08/06/20 07:09 114 27 100 08/06/20 07:00 118 27 168/85 (112) 90 Intake and Output 08/07/20 08/08/20 19:00 07:00 Intake Total 1975 ml 1805 ml Output Total 690 ml 1645 ml Balance 1285 ml 160 ml Free Water 300 ml 300 ml IV Total 1255 ml 1120 ml Tube Feeding 420 ml 385 ml Output Urine Total 690 ml 1645 ml Labs Test 08/06/20 04:20 08/06/20 07:40 08/06/20 12:06 08/06/20 17:01 White Blood Count 19.2 K/UL (4.8-10.8) Red Blood Count 4.01 M/UL (4.70-6.10) Hemoglobin 13.0 G/DL (14.2-18.0) Hematocrit 40.4 % (42.0-52.0) Mean Corpuscular Volume 101 FL (80-99) Mean Corpuscular Hemoglobin 32.4 PG (27.0-31.0) Mean Corpuscular Hemoglobin Concent 32.2 G/DL (32.0-36.0) Red Cell Distribution Width 12.9 % (11.6-14.8) Platelet Count 118 K/UL (150-450) Mean Platelet Volume 6.8 FL (6.5-10.1) Neutrophils (%) (Auto) % (45.0-75.0) Lymphocytes (%) (Auto) % (20.0-45.0) Monocytes (%) (Auto) % (1.0-10.0) Eosinophils (%) (Auto) % (0.0-3.0) Basophils (%) (Auto) % (0.0-2.0) Differential Total Cells Counted 100 Neutrophils % (Manual) 96 % (45-75) Lymphocytes % (Manual) 1 % (20-45) Monocytes % (Manual) 3 % (1-10) Eosinophils % (Manual) 0 % (0-3) Basophils % (Manual) 0 % (0-2) Band Neutrophils 0 % (0-8) Platelet Estimate Decreased Platelet Morphology Normal Macrocytosis 1+ Sodium Level 152 MMOL/L (136-145) Potassium Level 5.2 MMOL/L (3.5-5.1) Chloride Level 117 MMOL/L (98-107) Carbon Dioxide Level 33 MMOL/L (21-32) Anion Gap 2 mmol/L (5-15) Blood Urea Nitrogen 63 mg/dL (7-18) Creatinine 2.0 MG/DL (0.55-1.30) Estimat Glomerular Filtration Rate 33.7 mL/min (>60) Glucose Level 198 MG/DL (74-106) Uric Acid 4.5 MG/DL (2.6-7.2) Calcium Level 8.2 MG/DL (8.5-10.1) Phosphorus Level 3.1 MG/DL (2.5-4.9) Magnesium Level 3.5 MG/DL (1.8-2.4) Total Bilirubin 0.5 MG/DL (0.2-1.0) Aspartate Amino Transf (AST/SGOT) 152 U/L (15-37) Alanine Aminotransferase (ALT/SGPT) 953 U/L (12-78) Alkaline Phosphatase 209 U/L (46-116) C-Reactive Protein, Quantitative 2.2 mg/dL (0.00-0.90) Pro-B-Type Natriuretic Peptide 3393 pg/mL (0-125) Total Protein 5.6 G/DL (6.4-8.2) Albumin 2.2 G/DL (3.4-5.0) Globulin 3.4 g/dL Albumin/Globulin Ratio 0.6 (1.0-2.7) Arterial Blood pH 7.283 (7.350-7.450) Arterial Blood Partial Pressure CO2 70.4 mmHg (35.0-45.0) Arterial Blood Partial Pressure O2 59.9 mmHg (75.0-100.0) Arterial Blood HCO3 32.6 mmol/L (22.0-26.0) Arterial Blood Oxygen Saturation 91.3 % (95-100) Arterial Blood Base Excess 3.7 (-2-2) Mehdi Test Positive POC Whole Blood Glucose 183 MG/DL (74-106) 244 MG/DL (74-106) Test 08/06/20 19:32 08/06/20 23:05 08/07/20 04:35 08/08/20 04:00 POC Whole Blood Glucose 292 MG/DL (74-106) White Blood Count 23.0 K/UL (4.8-10.8) 27.6 K/UL (4.8-10.8) Red Blood Count 4.03 M/UL (4.70-6.10) 4.40 M/UL (4.70-6.10) Hemoglobin 13.0 G/DL (14.2-18.0) 14.0 G/DL (14.2-18.0) Hematocrit 40.1 % (42.0-52.0) 44.2 % (42.0-52.0) Mean Corpuscular Volume 100 FL (80-99) 100 FL (80-99) Mean Corpuscular Hemoglobin 32.2 PG (27.0-31.0) 31.8 PG (27.0-31.0) Mean Corpuscular Hemoglobin Concent 32.3 G/DL (32.0-36.0) 31.7 G/DL (32.0-36.0) Red Cell Distribution Width 12.7 % (11.6-14.8) 12.6 % (11.6-14.8) Platelet Count 142 K/UL (150-450) 183 K/UL (150-450) Mean Platelet Volume 6.9 FL (6.5-10.1) 6.4 FL (6.5-10.1) Neutrophils (%) (Auto) % (45.0-75.0) % (45.0-75.0) Lymphocytes (%) (Auto) % (20.0-45.0) % (20.0-45.0) Monocytes (%) (Auto) % (1.0-10.0) % (1.0-10.0) Eosinophils (%) (Auto) % (0.0-3.0) % (0.0-3.0) Basophils (%) (Auto) % (0.0-2.0) % (0.0-2.0) Differential Total Cells Counted 100 Neutrophils % (Manual) 97 % (45-75) Lymphocytes % (Manual) 1 % (20-45) Monocytes % (Manual) 2 % (1-10) Eosinophils % (Manual) 0 % (0-3) Basophils % (Manual) 0 % (0-2) Band Neutrophils 0 % (0-8) Platelet Estimate Decreased Platelet Morphology Normal Macrocytosis 1+ Sodium Level 149 MMOL/L (136-145) 150 MMOL/L (136-145) Potassium Level 4.6 MMOL/L (3.5-5.1) 5.1 MMOL/L (3.5-5.1) Chloride Level 113 MMOL/L (98-107) 113 MMOL/L (98-107) Carbon Dioxide Level 34 MMOL/L (21-32) 37 MMOL/L (21-32) Anion Gap 3 mmol/L (5-15) 0 mmol/L (5-15) Blood Urea Nitrogen 73 mg/dL (7-18) 68 mg/dL (7-18) Creatinine 1.9 MG/DL (0.55-1.30) 2.1 MG/DL (0.55-1.30) Estimat Glomerular Filtration Rate 35.8 mL/min (>60) 31.9 mL/min (>60) Glucose Level 272 MG/DL (74-106) 261 MG/DL (74-106) Calcium Level 7.7 MG/DL (8.5-10.1) 8.3 MG/DL (8.5-10.1) Phosphorus Level 2.1 MG/DL (2.5-4.9) 4.1 MG/DL (2.5-4.9) Magnesium Level 3.4 MG/DL (1.8-2.4) 3.2 MG/DL (1.8-2.4) Total Bilirubin 0.7 MG/DL (0.2-1.0) 0.6 MG/DL (0.2-1.0) Aspartate Amino Transf (AST/SGOT) 86 U/L (15-37) 64 U/L (15-37) Alanine Aminotransferase (ALT/SGPT) 628 U/L (12-78) 441 U/L (12-78) Alkaline Phosphatase 211 U/L (46-116) 190 U/L (46-116) C-Reactive Protein, Quantitative 1.4 mg/dL (0.00-0.90) 0.9 mg/dL (0.00-0.90) Pro-B-Type Natriuretic Peptide 2833 pg/mL (0-125) 3357 pg/mL (0-125) Total Protein 5.5 G/DL (6.4-8.2) 5.8 G/DL (6.4-8.2) Albumin 2.1 G/DL (3.4-5.0) 2.2 G/DL (3.4-5.0) Globulin 3.4 g/dL 3.6 g/dL Albumin/Globulin Ratio 0.6 (1.0-2.7) 0.6 (1.0-2.7) Uric Acid 5.6 MG/DL (2.6-7.2) Amylase Level 72 U/L (25-115) Lipase 352 U/L (73-393) Test 08/08/20 05:53 Height (Feet): 5 Height (Inches): 5.00 Weight (Pounds): 160 Objective Vital Signs Vitals: reviewed, abnormal General Appearance: well appearing, mild distress HEENT: hearing grossly normal, moist mucus membranes Neck: full range of motion, supple Respiratory: ++vent Cardiovascular: normal peripheral pulses, regular rate, rhythm, no murmur Gastrointestinal: non tender, soft, non-distended, no guarding Neurologic: alert, oriented x3, no focal defects Skin: normal color, warm/dry Robin Ornelas MD Aug 08, 2020 06:54
--- NOTE | 2020-08-08 07:15 | NUR ---
NURSE NOTES: Cardizem drip titrated down from 7.5 mg/hr to 5.0 mg/hr. HR 72, BP 95/53. Patient will continue to be monitored.
--- NOTE | 2020-08-08 07:30 | NUR ---
NURSE HAND-OFF REPORT: Latest Vital Signs: Temperature 98.7 , Pulse 81 , B/P 115 /57 , Respiratory Rate 16 , O2 SAT 97 , Mechanical Ventilator, O2 Flow Rate . Vital Sign Comment: stable EKG Rhythm: Sinus Tachycardia Rhythm change?: N Notified?: Moi Guzman MD Response: Latest Orozco Fall Score: 50 Fall Risk: High Risk Safety Measures: Call light Within Reach, Bed Alarm Zone 1, Side Rails Side Rails x2, Bed position Low and Locked. Fall Precautions: Yellow Socks Yellow Gown Door Sign Patient Fall Education Report given CARLOS zuleta.
--- NOTE | 2020-08-08 07:30 | NUR ---
NURSE NOTES: Received report from CARLOS Villaseñor. Patient is intubated, ETT 7.5, 24 cm on the lip, with settings AC 16, TV 550, FiO2 100%, PEEP 8, tolerating well, no signs of grimacing or distress. With tube feeding (OGT), patent, intact, running nepro at 30 mL/hr (goal achieved), no residual, tolerating well. Patient has a L FA 22 g, patent, intact, running D5W (100 mL/hr), and on cardizem drip, current rate is 2.5 mL/hr. HOB elevated, bed is on lowest position, locked, side rails up, call light within reach. Patient will continue to be monitored. Will continue plan of care.
--- NOTE | 2020-08-08 07:30 | NUR ---
NURSE NOTES: Titrated diltiazem drip from 5.0 mg/hr to 2.5 mg/hr. 66 bpm, BP 91/53. will continue to monitor.
--- NOTE | 2020-08-08 08:11 | NUR ---
RD ASSESSMENT & RECOMMENDATIONS SEE CARE ACTIVITY FOR COMPLETE ASSESSMENT DAILY ESTIMATED NEEDS: Needs based on Critical care 64.5kg abw 22-28 kcals/kg 9404-0006 total kcals 1.2-2 g protein/kg 77-129 g total protein 25-30 mL/kg 0800-0898 total fluid mLs NUTRITION DIAGNOSIS: Altered nutrition related lab values related to clinical status as evidenced by elev LD(665), elev WBC(trending down 17.7), elev BG(198-245), elevated lytes(K, phos, mg), elev renal labs (BUN now 63, creat 3.2->now 2.0), elev LFT's CURRENT TF: Nepro @35ml/hr ENTERAL NUTRITION RECOMMENDATIONS: As medically able, rec non oral feeds: nepro @35ml/hr x24 hrs to provide 840ml, 1512 kcal, 68g pro, 611ml free H2O - With hemodynamic stability, rec OGt feeds to meet est needs. - Start Nepro @15ml/hr for 6 hrs, advance as tolerated 10ml/hr q4-6 hrs to goal - Flush per MD. HOB over 30 degrees - When tolerating at goal, add Prosource 1 pack daily to better meet est pro needs. ADDITIONAL RECOMMENDATIONS: 1) recalibrate bed scale wt for accurate CBW 2) Monitor BG, need for NISS (BG elevated 198-245) 3) TF recs as above when stable for feeds 4) Rec bowel regimen (last bm 08/01)
[2020-08-08] MEDS: Solu-MEDROL 40mg Inj IVP SCH ×2 (08:23→20:18)
[2020-08-08] MEDS: Docusate 100mg cap ORAL SCH (08:23)
[2020-08-08] MEDS: Pantoprazole Inj IVP SCH (08:23)
[2020-08-08] MEDS: Enoxaparin 30mg Inj SUBQ SCH (08:24)
--- NOTE | 2020-08-08 08:30 | NUR ---
NURSE NOTES: Texted Dr. Bains if it is okay to stop cardizem drip, which is now on 2.5 mg/hr (BP 91/54, 61 bpm HR). Doctor said okay.
--- NOTE | 2020-08-08 09:30 | NUR ---
NURSE NOTES: medication given. patient tolerated well. BS taken before giving levemir - 238, 24 units levemir given. vital signs stable. patient will continue to be monitored.
[2020-08-08] MEDS: Levemir Flexpen SUBQ SCH ×2 (09:50→20:31)
[2020-08-08] MEDS: cefTRIAXone 1 GM in D5W 55 ML IVPB SCH (10:05)
--- NOTE | 2020-08-08 11:45 | Infectious Diseases Prog Note ---
Assessment/Plan Assessment/Plan antibiotics : ceftriaxone A 1. covid 19 pneumonia on 100 % Fi O2 with 98 % saturation 2. respiratory failure P 1. continue solumedrol 2. continue ceftriaxone 3. continue isolation Subjective ROS Limited/Unobtainable: Yes Allergies: Coded Allergies: No Known Allergies (Unverified , 07/29/20) Objective Last 24 Hour Vital Signs Date Time Temp Pulse Resp B/P (MAP) Pulse Ox O2 Delivery O2 Flow Rate FiO2 08/08/20 09:00 62 16 95/56 (69) 98 08/08/20 08:30 61 16 91/54 (66) 98 08/08/20 08:00 98.5 64 16 94/55 (68) 98 08/08/20 08:00 Mechanical Ventilator 08/08/20 08:00 100 08/08/20 07:30 69 08/08/20 07:30 66 16 91/53 (66) 97 08/08/20 07:00 81 16 115/57 (76) 97 08/08/20 07:00 81 16 115/57 (76) 97 08/08/20 06:30 95 16 131/71 (91) 97 08/08/20 06:00 98.7 98 16 122/68 (86) 97 08/08/20 05:46 103 129/71 08/08/20 05:30 98 19 129/71 (90) 97 08/08/20 05:19 98.7 08/08/20 05:00 110 17 141/73 (95) 97 08/08/20 04:30 113 16 150/78 (102) 97 08/08/20 04:00 117 08/08/20 04:00 100 08/08/20 04:00 101.1 119 16 140/87 (104) 97 08/08/20 04:00 Mechanical Ventilator 08/08/20 03:58 120 16 100 08/08/20 03:30 196 16 157/113 (128) 96 08/08/20 03:00 201 16 138/104 (115) 97 08/08/20 02:00 102.5 90 25 168/82 (110) 97 08/08/20 01:32 102.5 08/08/20 01:00 86 23 176/82 (113) 96 08/08/20 00:00 100 08/08/20 00:00 Mechanical Ventilator 08/08/20 00:00 91 08/08/20 00:00 101.1 84 23 168/82 (110) 95 08/07/20 23:57 83 25 100 08/07/20 23:20 178/76 08/07/20 23:00 91 25 178/76 (110) 95 08/07/20 22:00 90 28 176/90 (118) 93 08/07/20 21:26 107 176/90 08/07/20 21:00 102 26 169/86 (113) 95 08/07/20 20:47 100.5 08/07/20 20:17 184/94 08/07/20 20:00 Mechanical Ventilator 08/07/20 20:00 106 27 182/107 (132) 95 08/07/20 20:00 100 08/07/20 20:00 107 08/07/20 19:58 107 26 100 08/07/20 19:57 109 27 100 08/07/20 19:00 100.5 109 27 184/94 (124) 94 08/07/20 18:00 101 25 173/88 (116) 95 08/07/20 17:00 99.8 103 27 178/87 (117) 94 08/07/20 16:00 100 08/07/20 16:00 Mechanical Ventilator 08/07/20 16:00 105 08/07/20 16:00 102 29 172/96 (121) 92 08/07/20 15:00 105 30 100 08/07/20 15:00 104 29 167/85 (112) 92 08/07/20 14:17 100 170/89 08/07/20 14:00 105 29 177/79 (111) 91 08/07/20 13:00 97.5 100 27 175/90 (118) 93 08/07/20 12:03 100 08/07/20 12:00 104 08/07/20 12:00 102 26 172/93 (119) 94 08/07/20 12:00 Mechanical Ventilator Height (Feet): 5 Height (Inches): 5.00 Weight (Pounds): 160 HEENT: other - intubated Microbiology Date/Time Source Procedure Growth Status 08/05/20 18:00 Sputum Expectorated Gram Stain - Final Complete 08/05/20 18:00 Sputum Expectorated Sputum Culture - Final NORMAL UPPER RESPIRATORY CAITLIN PRESENT Complete Laboratory Tests Test 08/08/20 04:00 08/08/20 05:53 White Blood Count 27.6 K/UL (4.8-10.8) *H Red Blood Count 4.40 M/UL (4.70-6.10) L Hemoglobin 14.0 G/DL (14.2-18.0) L Hematocrit 44.2 % (42.0-52.0) Mean Corpuscular Volume 100 FL (80-99) H Mean Corpuscular Hemoglobin 31.8 PG (27.0-31.0) H Mean Corpuscular Hemoglobin Concent 31.7 G/DL (32.0-36.0) L Red Cell Distribution Width 12.6 % (11.6-14.8) Platelet Count 183 K/UL (150-450) Mean Platelet Volume 6.4 FL (6.5-10.1) L Neutrophils (%) (Auto) % (45.0-75.0) Lymphocytes (%) (Auto) % (20.0-45.0) Monocytes (%) (Auto) % (1.0-10.0) Eosinophils (%) (Auto) % (0.0-3.0) Basophils (%) (Auto) % (0.0-2.0) Differential Total Cells Counted 100 Neutrophils % (Manual) 96 % (45-75) H Lymphocytes % (Manual) 3 % (20-45) L Monocytes % (Manual) 1 % (1-10) Eosinophils % (Manual) 0 % (0-3) Basophils % (Manual) 0 % (0-2) Band Neutrophils 0 % (0-8) Platelet Estimate Adequate Platelet Morphology Normal Red Blood Cell Morphology Hypochromasia 1+ Macrocytosis 1+ Sodium Level 150 MMOL/L (136-145) H Potassium Level 5.1 MMOL/L (3.5-5.1) Chloride Level 113 MMOL/L (98-107) H Carbon Dioxide Level 37 MMOL/L (21-32) H Anion Gap 0 mmol/L (5-15) L Blood Urea Nitrogen 68 mg/dL (7-18) H Creatinine 2.1 MG/DL (0.55-1.30) H Estimat Glomerular Filtration Rate 31.9 mL/min (>60) Glucose Level 261 MG/DL (74-106) H Uric Acid 5.6 MG/DL (2.6-7.2) Calcium Level 8.3 MG/DL (8.5-10.1) L Phosphorus Level 4.1 MG/DL (2.5-4.9) Magnesium Level 3.2 MG/DL (1.8-2.4) H Total Bilirubin 0.6 MG/DL (0.2-1.0) Aspartate Amino Transf (AST/SGOT) 64 U/L (15-37) H Alanine Aminotransferase (ALT/SGPT) 441 U/L (12-78) H Alkaline Phosphatase 190 U/L (46-116) H C-Reactive Protein, Quantitative 0.9 mg/dL (0.00-0.90) Pro-B-Type Natriuretic Peptide 3357 pg/mL (0-125) H Total Protein 5.8 G/DL (6.4-8.2) L Albumin 2.2 G/DL (3.4-5.0) L Globulin 3.6 g/dL Albumin/Globulin Ratio 0.6 (1.0-2.7) L Amylase Level 72 U/L (25-115) Lipase 352 U/L (73-393) POC Whole Blood Glucose Pending Current Medications Medications (Trade) Dose Ordered Sig/Fabiano Route PRN Reason Start Time Stop Time Status Last Admin Dose Admin Acetaminophen (Tylenol) 650 mg Q4H PRN NG Temp >100.5 08/03/20 04:15 09/02/20 04:14 08/08/20 04:49 Acetaminophen (Tylenol) 650 mg Q4H PRN RECTAL Temp >100.5 08/01/20 20:30 08/31/20 20:29 08/02/20 10:28 Albuterol Sulfate (Proventil MDI) 2 puff Q4H PRN INH Shortness of Breath 07/29/20 22:45 10/27/20 22:44 Ceftriaxone Sodium 1 gm/ Dextrose 55 ml @ 110 mls/hr Q24H IVPB 08/07/20 10:00 08/14/20 09:59 08/08/20 10:05 Cetylpyridinium Chloride (Cepacol) 1 lozg Q2H PRN [place] For Cough 07/30/20 21:00 10/28/20 20:59 08/01/20 08:47 Clonidine HCl (Catapres Tab) 0.1 mg Q2H PRN ORAL SBP > 170mmHg 08/04/20 09:45 11/02/20 09:44 08/07/20 23:20 Dextrose 1,000 ml @ 100 mls/hr Q10H IV 08/06/20 12:15 09/05/20 12:14 08/08/20 04:22 Dextrose (Dextrose 50%) 25 ml Q30M PRN IV Hypoglycemia 08/06/20 10:45 11/04/20 10:44 Dextrose (Dextrose 50%) 50 ml Q30M PRN IV Hypoglycemia 08/06/20 10:45 11/04/20 10:44 Diltiazem HCl 125 ml @ 10 mls/hr Q24H IVPB 08/08/20 03:30 08/09/20 03:29 08/08/20 03:39 Diltiazem HCl (Cardizem Tab) 90 mg EVERY 8 HOURS ORAL 08/07/20 09:45 09/03/20 12:14 08/08/20 05:46 Docusate Sodium (Colace) 100 mg TWICE A DAY ORAL 08/06/20 18:00 09/05/20 17:59 08/08/20 08:23 Enoxaparin Sodium (Lovenox) 30 mg DAILY SUBQ 08/02/20 10:00 10/31/20 09:59 08/08/20 08:24 Guaifenesin/ Dextromethorphan (Robitussin DM Syrup) 15 ml Q6H PRN ORAL For Cough 07/31/20 08:30 10/29/20 08:29 08/01/20 08:47 Insulin Aspart (NovoLOG) Q6HR SUBQ 08/06/20 12:00 11/04/20 11:59 08/08/20 06:41 Insulin Detemir (Levemir) 24 units Q12HR SUBQ 08/08/20 09:00 11/04/20 20:59 08/08/20 09:50 Methylprednisolone Sodium Succinate (Solu-MEDROL) 40 mg EVERY 12 HOURS IVP 08/04/20 12:30 11/02/20 12:29 08/08/20 08:23 Pantoprazole (Protonix) 40 mg DAILY IVP 08/06/20 10:00 09/05/20 09:59 08/08/20 08:23 Polyethylene Glycol (Miralax) 17 gm BEDTIME ORAL 08/06/20 21:00 09/05/20 20:59 08/07/20 20:15 Santosh Cheek MD Aug 08, 2020 11:45
--- NOTE | 2020-08-08 11:46 | NUR ---
NURSE NOTES: Dr. Antonio came and wanted FiO2 to be titrated down. Updated RT and RT changed FiO2 to 90%. Will continue to monitor.
--- NOTE | 2020-08-08 12:33 | General Progress Note ---
Subjective ROS Limited/Unobtainable: No Allergies: Coded Allergies: No Known Allergies (Unverified , 07/29/20) Objective Last 24 Hour Vital Signs Date Time Temp Pulse Resp B/P (MAP) Pulse Ox O2 Delivery O2 Flow Rate FiO2 08/08/20 12:00 90 08/08/20 12:00 75 08/08/20 12:00 Mechanical Ventilator 08/08/20 09:00 62 16 95/56 (69) 98 08/08/20 08:30 61 16 91/54 (66) 98 08/08/20 08:00 98.5 64 16 94/55 (68) 98 08/08/20 08:00 Mechanical Ventilator 08/08/20 08:00 100 08/08/20 07:30 69 08/08/20 07:30 66 16 91/53 (66) 97 08/08/20 07:00 81 16 115/57 (76) 97 08/08/20 07:00 81 16 115/57 (76) 97 08/08/20 06:30 95 16 131/71 (91) 97 08/08/20 06:00 98.7 98 16 122/68 (86) 97 08/08/20 05:46 103 129/71 08/08/20 05:30 98 19 129/71 (90) 97 08/08/20 05:19 98.7 08/08/20 05:00 110 17 141/73 (95) 97 08/08/20 04:30 113 16 150/78 (102) 97 08/08/20 04:00 117 08/08/20 04:00 100 08/08/20 04:00 101.1 119 16 140/87 (104) 97 08/08/20 04:00 Mechanical Ventilator 08/08/20 03:58 120 16 100 08/08/20 03:30 196 16 157/113 (128) 96 08/08/20 03:00 201 16 138/104 (115) 97 08/08/20 02:00 102.5 90 25 168/82 (110) 97 08/08/20 01:32 102.5 08/08/20 01:00 86 23 176/82 (113) 96 08/08/20 00:00 100 08/08/20 00:00 Mechanical Ventilator 08/08/20 00:00 91 08/08/20 00:00 101.1 84 23 168/82 (110) 95 08/07/20 23:57 83 25 100 08/07/20 23:20 178/76 08/07/20 23:00 91 25 178/76 (110) 95 08/07/20 22:00 90 28 176/90 (118) 93 08/07/20 21:26 107 176/90 08/07/20 21:00 102 26 169/86 (113) 95 08/07/20 20:47 100.5 08/07/20 20:17 184/94 08/07/20 20:00 Mechanical Ventilator 08/07/20 20:00 106 27 182/107 (132) 95 08/07/20 20:00 100 08/07/20 20:00 107 08/07/20 19:58 107 26 100 08/07/20 19:57 109 27 100 08/07/20 19:00 100.5 109 27 184/94 (124) 94 08/07/20 18:00 101 25 173/88 (116) 95 08/07/20 17:00 99.8 103 27 178/87 (117) 94 08/07/20 16:00 100 08/07/20 16:00 Mechanical Ventilator 08/07/20 16:00 105 08/07/20 16:00 102 29 172/96 (121) 92 08/07/20 15:00 105 30 100 08/07/20 15:00 104 29 167/85 (112) 92 08/07/20 14:17 100 170/89 08/07/20 14:00 105 29 177/79 (111) 91 08/07/20 13:00 97.5 100 27 175/90 (118) 93 Intake and Output 08/07/20 08/08/20 19:00 07:00 Intake Total 1975 ml 1953.5 ml Output Total 690 ml 1745 ml Balance 1285 ml 208.5 ml Free Water 300 ml 300 ml IV Total 1255 ml 1233.5 ml Tube Feeding 420 ml 420 ml Output Urine Total 690 ml 1745 ml Laboratory Tests 08/08/20 04:00: White Blood Count 27.6*H, Red Blood Count 4.40L, Hemoglobin 14.0L, Hematocrit 44.2, Mean Corpuscular Volume 100H, Mean Corpuscular Hemoglobin 31.8H, Mean Corpuscular Hemoglobin Concent 31.7L, Red Cell Distribution Width 12.6, Platelet Count 183, Mean Platelet Volume 6.4L, Neutrophils (%) (Auto) , Lymphocytes (%) (Auto) , Monocytes (%) (Auto) , Eosinophils (%) (Auto) , Basophils (%) (Auto) , Differential Total Cells Counted 100, Neutrophils % (Manual) 96H, Lymphocytes % (Manual) 3L, Monocytes % (Manual) 1, Eosinophils % (Manual) 0, Basophils % (Manual) 0, Band Neutrophils 0, Platelet Estimate Adequate, Platelet Morphology Normal, Red Blood Cell Morphology , Hypochromasia 1+, Macrocytosis 1+, Sodium Level 150H, Potassium Level 5.1, Chloride Level 113H, Carbon Dioxide Level 37H, Anion Gap 0L, Blood Urea Nitrogen 68H, Creatinine 2.1H, Estimat Glomerular Filtration Rate 31.9, Glucose Level 261H, Uric Acid 5.6, Calcium Level 8.3L, Phosphorus Level 4.1, Magnesium Level 3.2H, Total Bilirubin 0.6, Aspartate Amino Transf (AST/SGOT) 64H, Alanine Aminotransferase (ALT/SGPT) 441H, Alkaline Phosphatase 190H, C-Reactive Protein, Quantitative 0.9, Pro-B-Type Natriuretic Peptide 3357H, Total Protein 5.8L, Albumin 2.2L, Globulin 3.6, Albumin/Globulin Ratio 0.6L, Amylase Level 72, Lipase 352 08/08/20 05:53: POC Whole Blood Glucose [Pending] Height (Feet): 5 Height (Inches): 5.00 Weight (Pounds): 160 General Appearance: no apparent distress EENT: normal ENT inspection Neck: supple Cardiovascular: normal rate Respiratory/Chest: decreased breath sounds Abdomen: normal bowel sounds, non tender, soft Extremities: non-tender Assessment/Plan Problem List: (1) Hypoxia ICD Codes: R09.02 - Hypoxemia SNOMED: 186885815 (2) Bilateral pneumonia ICD Codes: J18.9 - Pneumonia, unspecified organism SNOMED: 733190846, 981822751 (3) Acute respiratory failure with hypoxia ICD Codes: J96.01 - Acute respiratory failure with hypoxia SNOMED: 63527484, 929702000 (4) Bradycardia ICD Codes: R00.1 - Bradycardia, unspecified SNOMED: 73299230 (5) Malnutrition ICD Codes: E46 - Unspecified protein-calorie malnutrition SNOMED: 36515705 (6) Shock liver ICD Codes: K72.00 - Acute and subacute hepatic failure without coma SNOMED: 896263102 (7) ERIKA (acute kidney injury) ICD Codes: N17.9 - Acute kidney failure, unspecified SNOMED: 8268707, 41169005 Status: unchanged Assessment/Plan: NGTF covid care fu labs abx per ID shock liver>>>fu LFTS>>>improving bowel regimen poor prognosis will fu Enoch Varner MD Aug 08, 2020 12:33
--- NOTE | 2020-08-08 13:09 | NUR ---
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 BUN 68, Creatinine 2.1 cxray bilateral infiltrates unchanged IS: Solumedrol IV q 12 h Rocephin IV QD Cardizem GTT Cardizem PO q 8 h Lovenox SQ QD Protonix IVP QD ICU Status
--- NOTE | 2020-08-08 13:23 | Nephrology Progress Note ---
Assessment/Plan Problem List: (1) ERIKA (acute kidney injury) (2) Shock liver (3) Acute respiratory failure with hypoxia (4) Bilateral pneumonia Assessment Acute renal failure. Most likely due to hypotensive and shock from 8 PM last night to 5 AM this morning. Hyperkalemia. Acute hypoxic respiratory failure. Pneumonia with COVID-19. Elevated transaminase, most likely shock liver. Plan August 08: Labs reviewed. Renal parameters stable. Abnormal electrolytes noted. Continue current management. Albumin bolus given. Continue to monitor current state August 07: Labs reviewed. Neutra-Phos via NG tube given. Serum sodium and serum potassium lowering. Medication list reviewed. Levemir and Cardizem doses were adjusted by consultants. Continue to monitor renal parameters. August 06: Labs reviewed. Serum potassium 5.2. Serum sodium 152. Will change IV to D5W. Will start with the Levemir 10 mg nightly. August 05: Labs reviewed. Renal parameters improving. LFTs gradually improving. IV changed to half-normal saline. Continue to monitor blood sugar. Continue to monitor renal parameters. Patient full code. Cardizem dose increased. August 04: Renal parameters improving. LFTs remain elevated. Hemodynamically stable. Continue to monitor renal parameters. Continue per consultants. Discussed with CARLOS Greene. August 03: Patient intubated on ventilator. Renal parameters worsening. LFTs elevated. Patient is deteriorating. Will consider dialysis treatment if no reversal of kidney failure. Discussed with CARLOS Alexis. Previously: Albumin bolus Increase IV fluid Kayexalate for high potassium Monitor renal parameters Subjective ROS Limited/Unobtainable: Yes Objective Objective Last 24 Hour Vital Signs Date Time Temp Pulse Resp B/P (MAP) Pulse Ox O2 Delivery O2 Flow Rate FiO2 08/08/20 12:57 81 101/56 08/08/20 12:30 77 16 101/56 (71) 94 08/08/20 12:00 90 08/08/20 12:00 75 08/08/20 12:00 74 16 105/63 (77) 95 08/08/20 12:00 Mechanical Ventilator 08/08/20 11:30 70 16 107/63 (78) 97 08/08/20 11:00 68 16 107/63 (78) 98 08/08/20 10:30 67 16 105/64 (78) 98 08/08/20 10:00 66 16 106/60 (75) 98 08/08/20 09:30 64 16 103/60 (74) 98 08/08/20 09:00 62 16 95/56 (69) 98 08/08/20 08:30 61 16 91/54 (66) 98 08/08/20 08:00 98.5 64 16 94/55 (68) 98 08/08/20 08:00 Mechanical Ventilator 08/08/20 08:00 100 08/08/20 07:30 69 08/08/20 07:30 66 16 91/53 (66) 97 08/08/20 07:00 81 16 115/57 (76) 97 08/08/20 07:00 81 16 115/57 (76) 97 08/08/20 06:30 95 16 131/71 (91) 97 08/08/20 06:00 98.7 98 16 122/68 (86) 97 08/08/20 05:46 103 129/71 08/08/20 05:30 98 19 129/71 (90) 97 08/08/20 05:19 98.7 08/08/20 05:00 110 17 141/73 (95) 97 08/08/20 04:30 113 16 150/78 (102) 97 08/08/20 04:00 117 08/08/20 04:00 100 08/08/20 04:00 101.1 119 16 140/87 (104) 97 08/08/20 04:00 Mechanical Ventilator 08/08/20 03:58 120 16 100 08/08/20 03:30 196 16 157/113 (128) 96 08/08/20 03:00 201 16 138/104 (115) 97 08/08/20 02:00 102.5 90 25 168/82 (110) 97 08/08/20 01:32 102.5 08/08/20 01:00 86 23 176/82 (113) 96 08/08/20 00:00 100 08/08/20 00:00 Mechanical Ventilator 08/08/20 00:00 91 08/08/20 00:00 101.1 84 23 168/82 (110) 95 08/07/20 23:57 83 25 100 08/07/20 23:20 178/76 08/07/20 23:00 91 25 178/76 (110) 95 08/07/20 22:00 90 28 176/90 (118) 93 08/07/20 21:26 107 176/90 08/07/20 21:00 102 26 169/86 (113) 95 08/07/20 20:47 100.5 08/07/20 20:17 184/94 08/07/20 20:00 Mechanical Ventilator 08/07/20 20:00 106 27 182/107 (132) 95 08/07/20 20:00 100 08/07/20 20:00 107 08/07/20 19:58 107 26 100 08/07/20 19:57 109 27 100 08/07/20 19:00 100.5 109 27 184/94 (124) 94 08/07/20 18:00 101 25 173/88 (116) 95 08/07/20 17:00 99.8 103 27 178/87 (117) 94 08/07/20 16:00 100 08/07/20 16:00 Mechanical Ventilator 08/07/20 16:00 105 08/07/20 16:00 102 29 172/96 (121) 92 08/07/20 15:00 105 30 100 08/07/20 15:00 104 29 167/85 (112) 92 08/07/20 14:17 100 170/89 08/07/20 14:00 105 29 177/79 (111) 91 Intake and Output 08/07/20 08/08/20 19:00 07:00 Intake Total 1975 ml 1953.5 ml Output Total 690 ml 1745 ml Balance 1285 ml 208.5 ml Free Water 300 ml 300 ml IV Total 1255 ml 1233.5 ml Tube Feeding 420 ml 420 ml Output Urine Total 690 ml 1745 ml Current Medications Medications (Trade) Dose Ordered Sig/Fabiano Route PRN Reason Start Time Stop Time Status Last Admin Dose Admin Acetaminophen (Tylenol) 650 mg Q4H PRN NG Temp >100.5 08/03/20 04:15 09/02/20 04:14 08/08/20 04:49 Acetaminophen (Tylenol) 650 mg Q4H PRN RECTAL Temp >100.5 08/01/20 20:30 08/31/20 20:29 08/02/20 10:28 Albuterol Sulfate (Proventil MDI) 2 puff Q4H PRN INH Shortness of Breath 07/29/20 22:45 10/27/20 22:44 Ceftriaxone Sodium 1 gm/ Dextrose 55 ml @ 110 mls/hr Q24H IVPB 08/07/20 10:00 08/14/20 09:59 08/08/20 10:05 Cetylpyridinium Chloride (Cepacol) 1 lozg Q2H PRN [place] For Cough 07/30/20 21:00 10/28/20 20:59 08/01/20 08:47 Clonidine HCl (Catapres Tab) 0.1 mg Q2H PRN ORAL SBP > 170mmHg 08/04/20 09:45 11/02/20 09:44 08/07/20 23:20 Dextrose 1,000 ml @ 100 mls/hr Q10H IV 08/06/20 12:15 09/05/20 12:14 08/08/20 12:58 Dextrose (Dextrose 50%) 25 ml Q30M PRN IV Hypoglycemia 08/06/20 10:45 11/04/20 10:44 Dextrose (Dextrose 50%) 50 ml Q30M PRN IV Hypoglycemia 08/06/20 10:45 11/04/20 10:44 Diltiazem HCl 125 ml @ 10 mls/hr Q24H IVPB 08/08/20 03:30 08/09/20 03:29 08/08/20 03:39 Diltiazem HCl (Cardizem Tab) 90 mg EVERY 8 HOURS ORAL 08/07/20 09:45 09/03/20 12:14 08/08/20 12:57 Docusate Sodium (Colace) 100 mg TWICE A DAY ORAL 08/06/20 18:00 09/05/20 17:59 08/08/20 08:23 Enoxaparin Sodium (Lovenox) 30 mg DAILY SUBQ 08/02/20 10:00 10/31/20 09:59 08/08/20 08:24 Guaifenesin/ Dextromethorphan (Robitussin DM Syrup) 15 ml Q6H PRN ORAL For Cough 07/31/20 08:30 10/29/20 08:29 08/01/20 08:47 Insulin Aspart (NovoLOG) Q6HR SUBQ 08/06/20 12:00 11/04/20 11:59 08/08/20 11:57 Insulin Detemir (Levemir) 24 units Q12HR SUBQ 08/08/20 09:00 11/04/20 20:59 08/08/20 09:50 Methylprednisolone Sodium Succinate (Solu-MEDROL) 40 mg EVERY 12 HOURS IVP 08/04/20 12:30 11/02/20 12:29 08/08/20 08:23 Pantoprazole (Protonix) 40 mg DAILY IVP 08/06/20 10:00 09/05/20 09:59 08/08/20 08:23 Polyethylene Glycol (Miralax) 17 gm BEDTIME ORAL 08/06/20 21:00 09/05/20 20:59 08/07/20 20:15 Laboratory Tests 08/08/20 04:00: White Blood Count 27.6*H, Red Blood Count 4.40L, Hemoglobin 14.0L, Hematocrit 44.2, Mean Corpuscular Volume 100H, Mean Corpuscular Hemoglobin 31.8H, Mean Co rpuscular Hemoglobin Concent 31.7L, Red Cell Distribution Width 12.6, Platelet Count 183, Mean Platelet Volume 6.4L, Neutrophils (%) (Auto) , Lymphocytes (%) (Auto) , Monocytes (%) (Auto) , Eosinophils (%) (Auto) , Basophils (%) (Auto) , Differential Total Cells Counted 100, Neutrophils % (Manual) 96H, Lymphocytes % (Manual) 3L, Monocytes % (Manual) 1, Eosinophils % (Manual) 0, Basophils % (Manual) 0, Band Neutrophils 0, Platelet Estimate Adequate, Platelet Morphology Normal, Red Blood Cell Morphology , Hypochromasia 1+, Macrocytosis 1+, Sodium Level 150H, Potassium Level 5.1, Chloride Level 113H, Carbon Dioxide Level 37H, Anion Gap 0L, Blood Urea Nitrogen 68H, Creatinine 2.1H, Estimat Glomerular Filtration Rate 31.9, Glucose Level 261H, Uric Acid 5.6, Calcium Level 8.3L, Phosphorus Level 4.1, Magnesium Level 3.2H, Total Bilirubin 0.6, Aspartate Amino Transf (AST/SGOT) 64H, Alanine Aminotransferase (ALT/SGPT) 441H, Alkaline Phosphatase 190H, C-Reactive Protein, Quantitative 0.9, Pro-B-Type Natriuretic Peptide 3357H, Total Protein 5.8L, Albumin 2.2L, Globulin 3.6, Albumin/Globulin Ratio 0.6L, Amylase Level 72, Lipase 352 08/08/20 05:53: POC Whole Blood Glucose [Pending] Height (Feet): 5 Height (Inches): 5.00 Weight (Pounds): 160 General Appearance: no apparent distress EENT: other - Intubated on ventilator Cardiovascular: normal rate Respiratory/Chest: decreased breath sounds Abdomen: distended Jared Everett MD Aug 08, 2020 13:23
--- NOTE | 2020-08-08 13:53 | Pulmonology Progress Note ---
Subjective ROS Limited/Unobtainable: Yes Interval Events: Intubated 08/01/20 Constitutional: Reports: fever, other - since yesterday HEENT: Repors: no symptoms Respiratory: Reports: no symptoms Cardiovascular: Reports: no symptoms Gastrointestinal/Abdominal: Reports: no symptoms; Denies: nausea, vomiting, diarrhea Musculoskeletal: Denies: pain Allergies: Coded Allergies: No Known Allergies (Unverified , 07/29/20) All Systems: reviewed and negative except above Objective Last 24 Hour Vital Signs Date Time Temp Pulse Resp B/P (MAP) Pulse Ox O2 Delivery O2 Flow Rate FiO2 08/08/20 12:57 81 101/56 08/08/20 12:30 77 16 101/56 (71) 94 08/08/20 12:00 90 08/08/20 12:00 75 08/08/20 12:00 74 16 105/63 (77) 95 08/08/20 12:00 Mechanical Ventilator 08/08/20 11:30 70 16 107/63 (78) 97 08/08/20 11:00 68 16 107/63 (78) 98 08/08/20 10:30 67 16 105/64 (78) 98 08/08/20 10:00 66 16 106/60 (75) 98 08/08/20 09:30 64 16 103/60 (74) 98 08/08/20 09:00 62 16 95/56 (69) 98 08/08/20 08:30 61 16 91/54 (66) 98 08/08/20 08:00 98.5 64 16 94/55 (68) 98 08/08/20 08:00 Mechanical Ventilator 08/08/20 08:00 100 08/08/20 07:30 69 08/08/20 07:30 66 16 91/53 (66) 97 08/08/20 07:00 81 16 115/57 (76) 97 08/08/20 07:00 81 16 115/57 (76) 97 08/08/20 06:30 95 16 131/71 (91) 97 08/08/20 06:00 98.7 98 16 122/68 (86) 97 08/08/20 05:46 103 129/71 08/08/20 05:30 98 19 129/71 (90) 97 08/08/20 05:19 98.7 08/08/20 05:00 110 17 141/73 (95) 97 08/08/20 04:30 113 16 150/78 (102) 97 08/08/20 04:00 117 08/08/20 04:00 100 08/08/20 04:00 101.1 119 16 140/87 (104) 97 08/08/20 04:00 Mechanical Ventilator 08/08/20 03:58 120 16 100 08/08/20 03:30 196 16 157/113 (128) 96 08/08/20 03:00 201 16 138/104 (115) 97 08/08/20 02:00 102.5 90 25 168/82 (110) 97 08/08/20 01:32 102.5 08/08/20 01:00 86 23 176/82 (113) 96 08/08/20 00:00 100 08/08/20 00:00 Mechanical Ventilator 08/08/20 00:00 91 08/08/20 00:00 101.1 84 23 168/82 (110) 95 08/07/20 23:57 83 25 100 08/07/20 23:20 178/76 08/07/20 23:00 91 25 178/76 (110) 95 08/07/20 22:00 90 28 176/90 (118) 93 08/07/20 21:26 107 176/90 08/07/20 21:00 102 26 169/86 (113) 95 08/07/20 20:47 100.5 08/07/20 20:17 184/94 08/07/20 20:00 Mechanical Ventilator 08/07/20 20:00 106 27 182/107 (132) 95 08/07/20 20:00 100 08/07/20 20:00 107 08/07/20 19:58 107 26 100 08/07/20 19:57 109 27 100 08/07/20 19:00 100.5 109 27 184/94 (124) 94 08/07/20 18:00 101 25 173/88 (116) 95 08/07/20 17:00 99.8 103 27 178/87 (117) 94 08/07/20 16:00 100 08/07/20 16:00 Mechanical Ventilator 08/07/20 16:00 105 08/07/20 16:00 102 29 172/96 (121) 92 08/07/20 15:00 105 30 100 1/14/21 15:00 104 29 167/85 (112) 92 08/07/20 14:17 100 170/89 08/07/20 14:00 105 29 177/79 (111) 91 Intake and Output 08/07/20 08/08/20 19:00 07:00 Intake Total 1975 ml 1953.5 ml Output Total 690 ml 1745 ml Balance 1285 ml 208.5 ml Free Water 300 ml 300 ml IV Total 1255 ml 1233.5 ml Tube Feeding 420 ml 420 ml Output Urine Total 690 ml 1745 ml General Appearance: no acute distress HEENT: normocephalic, atraumatic Respiratory: lungs clear Cardiovascular: normal rate, regular rhythm Abdomen: soft, non tender Microbiology Date/Time Source Procedure Growth Status 08/05/20 18:00 Sputum Expectorated Gram Stain - Final Complete 08/05/20 18:00 Sputum Expectorated Sputum Culture - Final NORMAL UPPER RESPIRATORY CAITLIN PRESENT Complete Laboratory Tests 08/08/20 04:00: White Blood Count 27.6*H, Red Blood Count 4.40L, Hemoglobin 14.0L, Hematocrit 44.2, Mean Corpuscular Volume 100H, Mean Corpuscular Hemoglobin 31.8H, Mean Corpuscular Hemoglobin Concent 31.7L, Red Cell Distribution Width 12.6, Platelet Count 183, Mean Platelet Volume 6.4L, Neutrophils (%) (Auto) , Lymphocytes (%) (Auto) , Monocytes (%) (Auto) , Eosinophils (%) (Auto) , Basophils (%) (Auto) , Differential Total Cells Counted 100, Neutrophils % (Manual) 96H, Lymphocytes % (Manual) 3L, Monocytes % (Manual) 1, Eosinophils % (Manual) 0, Basophils % (Manual) 0, Band Neutrophils 0, Platelet Estimate Adequate, Platelet Morphology Normal, Red Blood Cell Morphology , Hypochromasia 1+, Macrocytosis 1+, Sodium Level 150H, Potassium Level 5.1, Chloride Level 113H, Carbon Dioxide Level 37H, Anion Gap 0L, Blood Urea Nitrogen 68H, Creatinine 2.1H, Estimat Glomerular Filtration Rate 31.9, Glucose Level 261H, Uric Acid 5.6, Calcium Level 8.3L, Phosphorus Level 4.1, Magnesium Level 3.2H, Total Bilirubin 0.6, Aspartate Amino Transf (AST/SGOT) 64H, Alanine Aminotransferase (ALT/SGPT) 441H, Alkaline Phosphatase 190H, C-Reactive Protein, Quantitative 0.9, Pro-B-Type Natriuretic Peptide 3357H, Total Protein 5.8L, Albumin 2.2L, Globulin 3.6, Albumin/Globulin Ratio 0.6L, Amylase Level 72, Lipase 352 08/08/20 05:53: POC Whole Blood Glucose [Pending] Current Medications Medications (Trade) Dose Ordered Sig/Fabiano Route PRN Reason Start Time Stop Time Status Last Admin Dose Admin Acetaminophen (Tylenol) 650 mg Q4H PRN NG Temp >100.5 08/03/20 04:15 09/02/20 04:14 08/08/20 04:49 Acetaminophen (Tylenol) 650 mg Q4H PRN RECTAL Temp >100.5 08/01/20 20:30 08/31/20 20:29 08/02/20 10:28 Albuterol Sulfate (Proventil MDI) 2 puff Q4H PRN INH Shortness of Breath 07/29/20 22:45 10/27/20 22:44 Ceftriaxone Sodium 1 gm/ Dextrose 55 ml @ 110 mls/hr Q24H IVPB 08/07/20 10:00 08/14/20 09:59 08/08/20 10:05 Cetylpyridinium Chloride (Cepacol) 1 lozg Q2H PRN [place] For Cough 07/30/20 21:00 10/28/20 20:59 08/01/20 08:47 Clonidine HCl (Catapres Tab) 0.1 mg Q2H PRN ORAL SBP > 170mmHg 08/04/20 09:45 11/02/20 09:44 08/07/20 23:20 Dextrose 1,000 ml @ 100 mls/hr Q10H IV 08/06/20 12:15 09/05/20 12:14 08/08/20 12:58 Dextrose (Dextrose 50%) 25 ml Q30M PRN IV Hypoglycemia 08/06/20 10:45 11/04/20 10:44 Dextrose (Dextrose 50%) 50 ml Q30M PRN IV Hypoglycemia 08/06/20 10:45 11/04/20 10:44 Diltiazem HCl 125 ml @ 10 mls/hr Q24H IVPB 08/08/20 03:30 08/09/20 03:29 08/08/20 03:39 Diltiazem HCl (Cardizem Tab) 90 mg EVERY 8 HOURS ORAL 08/07/20 09:45 09/03/20 12:14 08/08/20 12:57 Docusate Sodium (Colace) 100 mg TWICE A DAY ORAL 08/06/20 18:00 09/05/20 17:59 08/08/20 08:23 Enoxaparin Sodium (Lovenox) 30 mg DAILY SUBQ 08/02/20 10:00 10/31/20 09:59 08/08/20 08:24 Guaifenesin/ Dextromethorphan (Robitussin DM Syrup) 15 ml Q6H PRN ORAL For Cough 07/31/20 08:30 10/29/20 08:29 08/01/20 08:47 Insulin Aspart (NovoLOG) Q6HR SUBQ 08/06/20 12:00 11/04/20 11:59 08/08/20 11:57 Insulin Detemir (Levemir) 24 units Q12HR SUBQ 08/08/20 09:00 11/04/20 20:59 08/08/20 09:50 Methylprednisolone Sodium Succinate (Solu-MEDROL) 40 mg EVERY 12 HOURS IVP 08/04/20 12:30 11/02/20 12:29 08/08/20 08:23 Pantoprazole (Protonix) 40 mg DAILY IVP 08/06/20 10:00 09/05/20 09:59 08/08/20 08:23 Polyethylene Glycol (Miralax) 17 gm BEDTIME ORAL 08/06/20 21:00 09/05/20 20:59 08/07/20 20:15 Assessment/Plan Assessment/Plan 1. Respiratory Failure - intubated 08/01/20 - oxygenating better - Continue PEEP 12; will decrease to 8 - continue 100% Fio2; will attempt to decrease further; currently 65% 2. Hyponatremia - per primary MD 3. Hyperglycemia - BG control 5. Pneumonia - abx per ID - on dexamethasone (07/30-) - now on remdesivir per ID (08/01-) 6. COVID-19 rapid negative - COVID-19 PCR positive 7. Elevated inflammatory markers; ferritin, D-Dimer - likely secondary to #5 - On Lovenox Discussed with son Remains totally unresponsive; off all sedation WIll need neurology Milton Sanchez MD Aug 08, 2020 13:53
[2020-08-08] MEDS ORDERED: Lidocaine 1% Plain 30 ml INJ PRN (14:15)
[2020-08-08] MEDS ORDERED: Heparin1,000 units/500ml Premix(Conc:2 units/ml) IV PRN (14:15)
--- NOTE | 2020-08-08 15:26 | Cardiac Electrophysiology PN ---
Assessment/Plan Assessment/Plan 1. Bradycardia off any sinus-galen or AV-galen blocking agents. Echocardiogram EF 60% 2. Atral fib with RVR.Now off Cardizem drip. Increase Cardizem to 120 tid. Also on prn Clonidine Cant use Amiodarone for shock liver that is improving 3. Respiratory failure due to Covid PNA intubated on 80% Fio2 and PEEP 5 4. Acute renal failure with CR 2.5 5. Shock Liver with AST and ALT >1100 6.Sepsis. White count 21,000 on IV antibiotic per Dr. Antonio. DIXIE RN Subjective Subjective In ICU intubated on 80% Fio2 and PEEP 8. Had atrial fib with RVR and started on Cardizem drip. DCed this am for low BP and conversion to SR EF 60%. On Cardizem 60 qid. Unresponsive to pain. Getting albumin. Objective Last 24 Hour Vital Signs Date Time Temp Pulse Resp B/P (MAP) Pulse Ox O2 Delivery O2 Flow Rate FiO2 08/08/20 14:03 100 08/08/20 14:00 76 16 105/58 (74) 96 08/08/20 13:30 71 16 88/44 (59) 97 08/08/20 13:00 73 16 85/43 (57) 97 08/08/20 12:57 81 101/56 08/08/20 12:30 77 16 101/56 (71) 94 08/08/20 12:00 90 08/08/20 12:00 75 08/08/20 12:00 74 16 105/63 (77) 95 08/08/20 12:00 Mechanical Ventilator 08/08/20 11:46 90 08/08/20 11:30 70 16 107/63 (78) 97 08/08/20 11:00 68 16 107/63 (78) 98 08/08/20 11:00 70 16 100 08/08/20 10:30 67 16 105/64 (78) 98 08/08/20 10:00 66 16 106/60 (75) 98 08/08/20 09:30 64 16 103/60 (74) 98 08/08/20 09:00 62 16 95/56 (69) 98 08/08/20 08:30 61 16 91/54 (66) 98 08/08/20 08:00 98.5 64 16 94/55 (68) 98 08/08/20 08:00 Mechanical Ventilator 08/08/20 08:00 100 08/08/20 07:30 69 08/08/20 07:30 66 16 91/53 (66) 97 08/08/20 07:00 64 16 100 08/08/20 07:00 81 16 115/57 (76) 97 08/08/20 07:00 81 16 115/57 (76) 97 08/08/20 06:30 95 16 131/71 (91) 97 08/08/20 06:00 98.7 98 16 122/68 (86) 97 08/08/20 05:46 103 129/71 08/08/20 05:30 98 19 129/71 (90) 97 08/08/20 05:19 98.7 08/08/20 05:00 110 17 141/73 (95) 97 08/08/20 04:30 113 16 150/78 (102) 97 08/08/20 04:00 117 08/08/20 04:00 100 08/08/20 04:00 101.1 119 16 140/87 (104) 97 08/08/20 04:00 Mechanical Ventilator 08/08/20 03:58 120 16 100 08/08/20 03:30 196 16 157/113 (128) 96 08/08/20 03:00 201 16 138/104 (115) 97 08/08/20 02:00 102.5 90 25 168/82 (110) 97 08/08/20 01:32 102.5 08/08/20 01:00 86 23 176/82 (113) 96 08/08/20 00:00 100 08/08/20 00:00 Mechanical Ventilator 08/08/20 00:00 91 08/08/20 00:00 101.1 84 23 168/82 (110) 95 08/07/20 23:57 83 25 100 08/07/20 23:20 178/76 08/07/20 23:00 91 25 178/76 (110) 95 08/07/20 22:00 90 28 176/90 (118) 93 08/07/20 21:26 107 176/90 08/07/20 21:00 102 26 169/86 (113) 95 08/07/20 20:47 100.5 08/07/20 20:17 184/94 08/07/20 20:00 Mechanical Ventilator 08/07/20 20:00 106 27 182/107 (132) 95 08/07/20 20:00 100 08/07/20 20:00 107 08/07/20 19:58 107 26 100 08/07/20 19:57 109 27 100 08/07/20 19:00 100.5 109 27 184/94 (124) 94 08/07/20 18:00 101 25 173/88 (116) 95 08/07/20 17:00 99.8 103 27 178/87 (117) 94 08/07/20 16:00 100 08/07/20 16:00 Mechanical Ventilator 08/07/20 16:00 105 08/07/20 16:00 102 29 172/96 (121) 92 Intake and Output 08/07/20 08/08/20 19:00 07:00 Intake Total 1975 ml 1953.5 ml Output Total 690 ml 1745 ml Balance 1285 ml 208.5 ml Free Water 300 ml 300 ml IV Total 1255 ml 1233.5 ml Tube Feeding 420 ml 420 ml Output Urine Total 690 ml 1745 ml Laboratory Tests Test 08/08/20 04:00 08/08/20 05:53 White Blood Count 27.6 K/UL (4.8-10.8) *H Red Blood Count 4.40 M/UL (4.70-6.10) L Hemoglobin 14.0 G/DL (14.2-18.0) L Hematocrit 44.2 % (42.0-52.0) Mean Corpuscular Volume 100 FL (80-99) H Mean Corpuscular Hemoglobin 31.8 PG (27.0-31.0) H Mean Corpuscular Hemoglobin Concent 31.7 G/DL (32.0-36.0) L Red Cell Distribution Width 12.6 % (11.6-14.8) Platelet Count 183 K/UL (150-450) Mean Platelet Volume 6.4 FL (6.5-10.1) L Neutrophils (%) (Auto) % (45.0-75.0) Lymphocytes (%) (Auto) % (20.0-45.0) Monocytes (%) (Auto) % (1.0-10.0) Eosinophils (%) (Auto) % (0.0-3.0) Basophils (%) (Auto) % (0.0-2.0) Differential Total Cells Counted 100 Neutrophils % (Manual) 96 % (45-75) H Lymphocytes % (Manual) 3 % (20-45) L Monocytes % (Manual) 1 % (1-10) Eosinophils % (Manual) 0 % (0-3) Basophils % (Manual) 0 % (0-2) Band Neutrophils 0 % (0-8) Platelet Estimate Adequate Platelet Morphology Normal Red Blood Cell Morphology Hypochromasia 1+ Macrocytosis 1+ Sodium Level 150 MMOL/L (136-145) H Potassium Level 5.1 MMOL/L (3.5-5.1) Chloride Level 113 MMOL/L (98-107) H Carbon Dioxide Level 37 MMOL/L (21-32) H Anion Gap 0 mmol/L (5-15) L Blood Urea Nitrogen 68 mg/dL (7-18) H Creatinine 2.1 MG/DL (0.55-1.30) H Estimat Glomerular Filtration Rate 31.9 mL/min (>60) Glucose Level 261 MG/DL (74-106) H Uric Acid 5.6 MG/DL (2.6-7.2) Calcium Level 8.3 MG/DL (8.5-10.1) L Phosphorus Level 4.1 MG/DL (2.5-4.9) Magnesium Level 3.2 MG/DL (1.8-2.4) H Total Bilirubin 0.6 MG/DL (0.2-1.0) Aspartate Amino Transf (AST/SGOT) 64 U/L (15-37) H Alanine Aminotransferase (ALT/SGPT) 441 U/L (12-78) H Alkaline Phosphatase 190 U/L (46-116) H C-Reactive Protein, Quantitative 0.9 mg/dL (0.00-0.90) Pro-B-Type Natriuretic Peptide 3357 pg/mL (0-125) H Total Protein 5.8 G/DL (6.4-8.2) L Albumin 2.2 G/DL (3.4-5.0) L Globulin 3.6 g/dL Albumin/Globulin Ratio 0.6 (1.0-2.7) L Amylase Level 72 U/L (25-115) Lipase 352 U/L (73-393) POC Whole Blood Glucose Pending Microbiology Date/Time Source Procedure Growth Status 08/05/20 18:00 Sputum Expectorated Gram Stain - Final Complete 08/05/20 18:00 Sputum Expectorated Sputum Culture - Final NORMAL UPPER RESPIRATORY CAITLIN PRESENT Complete Objective HEAD AND NECK: Showed no JVD. LUNGS: Clear. CARDIOVASCULAR: Shows regular S1 and S2 with no gallop. ABDOMEN: Soft. EXTREMITIES: No pitting edema. Navjot Bains MD Aug 08, 2020 15:26
--- NOTE | 2020-08-08 16:27 | Surgery Progress Note ---
Surgery Progress Note Subjective Additional Comments plan picc today labs noted exam unchanged Objective Last 24 Hour Vital Signs Date Time Temp Pulse Resp B/P (MAP) Pulse Ox O2 Delivery O2 Flow Rate FiO2 08/08/20 16:00 90 08/08/20 16:00 Mechanical Ventilator 08/08/20 15:00 75 17 113/63 (80) 91 08/08/20 14:03 100 08/08/20 14:00 76 16 105/58 (74) 96 08/08/20 13:30 71 16 88/44 (59) 97 08/08/20 13:00 73 16 85/43 (57) 97 08/08/20 12:57 81 101/56 08/08/20 12:30 77 16 101/56 (71) 94 08/08/20 12:00 90 08/08/20 12:00 75 08/08/20 12:00 74 16 105/63 (77) 95 08/08/20 12:00 Mechanical Ventilator 08/08/20 11:46 90 08/08/20 11:30 70 16 107/63 (78) 97 08/08/20 11:00 68 16 107/63 (78) 98 08/08/20 11:00 70 16 100 08/08/20 10:30 67 16 105/64 (78) 98 08/08/20 10:00 66 16 106/60 (75) 98 08/08/20 09:30 64 16 103/60 (74) 98 08/08/20 09:00 62 16 95/56 (69) 98 08/08/20 08:30 61 16 91/54 (66) 98 08/08/20 08:00 98.5 64 16 94/55 (68) 98 08/08/20 08:00 Mechanical Ventilator 08/08/20 08:00 100 08/08/20 07:30 69 08/08/20 07:30 66 16 91/53 (66) 97 08/08/20 07:00 64 16 100 08/08/20 07:00 81 16 115/57 (76) 97 08/08/20 07:00 81 16 115/57 (76) 97 08/08/20 06:30 95 16 131/71 (91) 97 08/08/20 06:00 98.7 98 16 122/68 (86) 97 08/08/20 05:46 103 129/71 1/15/21 05:30 98 19 129/71 (90) 97 08/08/20 05:19 98.7 08/08/20 05:00 110 17 141/73 (95) 97 08/08/20 04:30 113 16 150/78 (102) 97 08/08/20 04:00 117 08/08/20 04:00 100 08/08/20 04:00 101.1 119 16 140/87 (104) 97 08/08/20 04:00 Mechanical Ventilator 08/08/20 03:58 120 16 100 08/08/20 03:30 196 16 157/113 (128) 96 08/08/20 03:00 201 16 138/104 (115) 97 08/08/20 02:00 102.5 90 25 168/82 (110) 97 08/08/20 01:32 102.5 08/08/20 01:00 86 23 176/82 (113) 96 08/08/20 00:00 100 08/08/20 00:00 Mechanical Ventilator 08/08/20 00:00 91 08/08/20 00:00 101.1 84 23 168/82 (110) 95 08/07/20 23:57 83 25 100 08/07/20 23:20 178/76 08/07/20 23:00 91 25 178/76 (110) 95 08/07/20 22:00 90 28 176/90 (118) 93 08/07/20 21:26 107 176/90 08/07/20 21:00 102 26 169/86 (113) 95 08/07/20 20:47 100.5 08/07/20 20:17 184/94 08/07/20 20:00 Mechanical Ventilator 08/07/20 20:00 106 27 182/107 (132) 95 08/07/20 20:00 100 08/07/20 20:00 107 08/07/20 19:58 107 26 100 08/07/20 19:57 109 27 100 08/07/20 19:00 100.5 109 27 184/94 (124) 94 08/07/20 18:00 101 25 173/88 (116) 95 08/07/20 17:00 99.8 103 27 178/87 (117) 94 I&O Intake and Output 08/07/20 08/08/20 18:59 06:59 Intake Total 1975 ml 1950 ml Output Total 690 ml 1695 ml Balance 1285 ml 255 ml Free Water 300 ml 300 ml IV Total 1255 ml 1230 ml Tube Feeding 420 ml 420 ml Output Urine Total 690 ml 1695 ml Dressing: saturated Cardiovascular: RSR Respiratory: decreased breath sounds Abdomen: soft, non-tender, present bowel sounds Extremities: no tenderness, no cyanosis Laboratory Tests Test 08/08/20 04:00 08/08/20 05:53 White Blood Count 27.6 K/UL (4.8-10.8) *H Red Blood Count 4.40 M/UL (4.70-6.10) L Hemoglobin 14.0 G/DL (14.2-18.0) L Hematocrit 44.2 % (42.0-52.0) Mean Corpuscular Volume 100 FL (80-99) H Mean Corpuscular Hemoglobin 31.8 PG (27.0-31.0) H Mean Corpuscular Hemoglobin Concent 31.7 G/DL (32.0-36.0) L Red Cell Distribution Width 12.6 % (11.6-14.8) Platelet Count 183 K/UL (150-450) Mean Platelet Volume 6.4 FL (6.5-10.1) L Neutrophils (%) (Auto) % (45.0-75.0) Lymphocytes (%) (Auto) % (20.0-45.0) Monocytes (%) (Auto) % (1.0-10.0) Eosinophils (%) (Auto) % (0.0-3.0) Basophils (%) (Auto) % (0.0-2.0) Differential Total Cells Counted 100 Neutrophils % (Manual) 96 % (45-75) H Lymphocytes % (Manual) 3 % (20-45) L Monocytes % (Manual) 1 % (1-10) Eosinophils % (Manual) 0 % (0-3) Basophils % (Manual) 0 % (0-2) Band Neutrophils 0 % (0-8) Platelet Estimate Adequate Platelet Morphology Normal Red Blood Cell Morphology Hypochromasia 1+ Macrocytosis 1+ Sodium Level 150 MMOL/L (136-145) H Potassium Level 5.1 MMOL/L (3.5-5.1) Chloride Level 113 MMOL/L (98-107) H Carbon Dioxide Level 37 MMOL/L (21-32) H Anion Gap 0 mmol/L (5-15) L Blood Urea Nitrogen 68 mg/dL (7-18) H Creatinine 2.1 MG/DL (0.55-1.30) H Estimat Glomerular Filtration Rate 31.9 mL/min (>60) Glucose Level 261 MG/DL (74-106) H Uric Acid 5.6 MG/DL (2.6-7.2) Calcium Level 8.3 MG/DL (8.5-10.1) L Phosphorus Level 4.1 MG/DL (2.5-4.9) Magnesium Level 3.2 MG/DL (1.8-2.4) H Total Bilirubin 0.6 MG/DL (0.2-1.0) Aspartate Amino Transf (AST/SGOT) 64 U/L (15-37) H Alanine Aminotransferase (ALT/SGPT) 441 U/L (12-78) H Alkaline Phosphatase 190 U/L (46-116) H C-Reactive Protein, Quantitative 0.9 mg/dL (0.00-0.90) Pro-B-Type Natriuretic Peptide 3357 pg/mL (0-125) H Total Protein 5.8 G/DL (6.4-8.2) L Albumin 2.2 G/DL (3.4-5.0) L Globulin 3.6 g/dL Albumin/Globulin Ratio 0.6 (1.0-2.7) L Amylase Level 72 U/L (25-115) Lipase 352 U/L (73-393) POC Whole Blood Glucose Pending Plan Problems: (1) Hypoxia (2) Bilateral pneumonia (3) Acute respiratory failure with hypoxia Assessment & Plan: ards covid negative as per pulm id input appreciated abd pain likely cramping indigestion from ill ness ppi ordered okay for diet monitor intake am labs will follow with exam and recs acute decline intubated in ICU on vent liver insufficiency acute hepatic in sufficiency renal insufficiency no acute surgical intervention needs resuscitation meds reviewed (4) Bradycardia (5) Malnutrition Assessment & Plan: DAILY ESTIMATED NEEDS: Needs based on [facility] 64.5kg abw 22-28 kcals/kg 3939-6394 total kcals 1.2-2 g protein/kg 77-129 g total protein 25-30 mL/kg 0860-4005 total fluid mLs NUTRITION DIAGNOSIS: Altered nutrition related lab values related to clinical status as evidenced by elev LD(665), elev WBC(trending down 17.7), elev BG(132-176), elevated lytes(K, phos, mg), elev renal labs ([id number], creat 3.2), elev LFT's ENTERAL NUTRITION RECOMMENDATIONS: As medically able, rec non oral feeds: NEPRO @35ml/hr x24 hrs to provide 840ml, 1512 kcal, 68g pro, 611ml free H2O - With hemodynamic stability, rec OGt feeds to meet est needs. - Start Nepro @15ml/hr for 6 hrs, advance as tolerated 10ml/hr q4-6 hrs to goal - Flush per MD. HOB over 30 degrees - When tolerating TF at goal, add Prosource 1 pack daily to better meet est pro needs. ADDITIONAL RECOMMENDATIONS: 1) recalibrate bed scale wt for accurate CBW 2) Monitor BG, need for NISS 3) TF recs as above when stable for feeds . (6) Shock liver Assessment & Plan: worsening lft's likely hydration resuscitation trend labs (7) ERIKA (acute kidney injury) Vern Quevedo Aug 08, 2020 16:27
--- NOTE | 2020-08-08 17:15 | NUR ---
NURSE NOTES: Patient's saturation was dropping to 70s. Called RT to bed side. Patient's FiO2 titrated up to 100% from 90%. Patient will continue to be monitored.
--- NOTE | 2020-08-08 17:25 | NUR ---
RADIOLOGY NOTE: LEFT UPPER EXTREMITY PICC LINE PLACEMENT BY DR. NISSA HARRIS AT 1645 HRS. FA
--- NOTE | 2020-08-08 18:00 | NUR ---
NURSE NOTES: PICC line inserted. Awaiting for order that it is okay to use.
--- NOTE | 2020-08-08 18:44 | Brief Operative Note ---
Immediate Post Operative Note Operative Note Pre-op Diagnosis: needs IV access Procedure: PICC Post-op Diagnosis: same as pre-op Surgeon: Gerardo Nation Anesthesia: local Specimen: none Complications: none Fluids: none Implant(s) used?: No Diego Nation MD Aug 08, 2020 18:44
--- NOTE | 2020-08-08 18:46 | Diagnostic Imaging Report ---
Indications: Needs long-term IV access Technique: Procedure performed at bedside. Procedural timeout performed. Ultrasound confirms patent compressible left basilic vein. Total sterile technique, including sterile probe cover and sterile gel, sterile gloves, hand hygiene, hat, mask,, sterile gown, large sterile drape, and preparation with 2% chlorhexidine utilized. Local anesthesia with 1% lidocaine. Under real-time ultrasound guidance, puncture basilic vein using 21-gauge needle, passage 0.018 guidewire, exchange for 4 Croatian peel-away sheath. 4 Croatian Bard dual-lumen power PICC cut to 48 cm. It was inserted through the peel-away sheath. Peel-away sheath and guidewire removed. Catheter fixed to the skin. Both catheter ports aspirated and flushed. Patient tolerated procedure well, without immediate complication. Followup chest x-ray obtained, documents catheter tip position at the deep right atrium. The catheter was pulled back, and a subsequent radiograph obtained, demonstrating the catheter tip at the mid superior vena cava Impression: Successful bedside placement of left arm PICC under sonographic guidance, as described above.
--- NOTE | 2020-08-08 19:32 | NUR ---
NURSE NOTES: Report received from CARLOS Hood. Patient is AO X 0, obtunded. site monitor is i place, shows Afib with HR ranging from 140's. Patient is intubated, 7.5 ET size, AC 16, TV 550, Fi02 100 %, 24 cm on the lip, Peep of 8. With OGT, on nephro 35 cc/hour. Accucheck every 6 hours. With Vernon catheter in place, drained via gravity. With peripheral IV on left forearm g-20 saline locked and PICC line on left upper arm, running D5W @ 100 cc/hour. Patient is on Covid-19 isolation, airborne precaution maintained and observed. On fall and aspiration precaution. Safety measures are in place, bed in lowest and locked position, side rails up x 2, will continue plan of care.
--- NOTE | 2020-08-08 19:34 | NUR ---
NURSE HAND-OFF REPORT: Latest Vital Signs: Temperature 98.5 , Pulse 130 , B/P 110 /65 , Respiratory Rate 16 , O2 SAT 97 , Mechanical Ventilator, O2 Flow Rate . Vital Sign Comment: stable EKG Rhythm: Sinus Rhythm Rhythm change?: N Notified?: Moi Guzman MD Response: Latest Orozco Fall Score: 50 Fall Risk: High Risk Safety Measures: Call light Within Reach, Bed Alarm Zone 1, Side Rails Side Rails x2, Bed position Low and Locked. Fall Precautions: Yellow Socks Yellow Gown Door Sign Patient Fall Education Report given to CARLOS Toribio.
--- NOTE | 2020-08-08 20:17 | General Progress Note ---
Subjective ROS Limited/Unobtainable: Yes Allergies: Coded Allergies: No Known Allergies (Unverified , 07/29/20) Objective Last 24 Hour Vital Signs Date Time Temp Pulse Resp B/P (MAP) Pulse Ox O2 Delivery O2 Flow Rate FiO2 08/08/20 19:00 130 16 110/65 (80) 97 08/08/20 18:40 131 16 100 08/08/20 18:00 131 16 84/63 (70) 95 08/08/20 17:30 128 17 93/63 (73) 95 08/08/20 17:15 100 08/08/20 17:00 130 19 84/49 (61) 87 08/08/20 16:30 68 16 102/51 (68) 87 08/08/20 16:00 90 08/08/20 16:00 Mechanical Ventilator 08/08/20 16:00 68 16 99/51 (67) 88 08/08/20 16:00 69 08/08/20 15:40 132 16 100 08/08/20 15:30 69 16 93/50 (64) 88 08/08/20 15:00 75 17 113/63 (80) 91 08/08/20 14:03 100 08/08/20 14:00 76 16 105/58 (74) 96 08/08/20 13:30 71 16 88/44 (59) 97 08/08/20 13:00 73 16 85/43 (57) 97 08/08/20 12:57 81 101/56 08/08/20 12:30 77 16 101/56 (71) 94 08/08/20 12:00 90 08/08/20 12:00 75 08/08/20 12:00 74 16 105/63 (77) 95 08/08/20 12:00 Mechanical Ventilator 08/08/20 11:46 90 08/08/20 11:30 70 16 107/63 (78) 97 08/08/20 11:00 68 16 107/63 (78) 98 08/08/20 11:00 70 16 100 08/08/20 10:30 67 16 105/64 (78) 98 08/08/20 10:00 66 16 106/60 (75) 98 08/08/20 09:30 64 16 103/60 (74) 98 08/08/20 09:00 62 16 95/56 (69) 98 08/08/20 08:30 61 16 91/54 (66) 98 08/08/20 08:00 98.5 64 16 94/55 (68) 98 08/08/20 08:00 Mechanical Ventilator 08/08/20 08:00 100 08/08/20 07:30 69 08/08/20 07:30 66 16 91/53 (66) 97 08/08/20 07:00 64 16 100 08/08/20 07:00 81 16 115/57 (76) 97 08/08/20 07:00 81 16 115/57 (76) 97 08/08/20 06:30 95 16 131/71 (91) 97 08/08/20 06:00 98.7 98 16 122/68 (86) 97 08/08/20 05:46 103 129/71 08/08/20 05:30 98 19 129/71 (90) 97 08/08/20 05:19 98.7 08/08/20 05:00 110 17 141/73 (95) 97 08/08/20 04:30 113 16 150/78 (102) 97 08/08/20 04:00 117 08/08/20 04:00 100 08/08/20 04:00 101.1 119 16 140/87 (104) 97 08/08/20 04:00 Mechanical Ventilator 08/08/20 03:58 120 16 100 08/08/20 03:30 196 16 157/113 (128) 96 08/08/20 03:00 201 16 138/104 (115) 97 08/08/20 02:00 102.5 90 25 168/82 (110) 97 08/08/20 01:32 102.5 08/08/20 01:00 86 23 176/82 (113) 96 08/08/20 00:00 100 08/08/20 00:00 Mechanical Ventilator 08/08/20 00:00 91 08/08/20 00:00 101.1 84 23 168/82 (110) 95 08/07/20 23:57 83 25 100 08/07/20 23:20 178/76 08/07/20 23:00 91 25 178/76 (110) 95 08/07/20 22:00 90 28 176/90 (118) 93 08/07/20 21:26 107 176/90 08/07/20 21:00 102 26 169/86 (113) 95 08/07/20 20:47 100.5 08/07/20 20:17 184/94 Intake and Output 08/07/20 08/08/20 19:00 07:00 Intake Total 1975 ml 1953.5 ml Output Total 690 ml 1745 ml Balance 1285 ml 208.5 ml Free Water 300 ml 300 ml IV Total 1255 ml 1233.5 ml Tube Feeding 420 ml 420 ml Output Urine Total 690 ml 1745 ml Laboratory Tests 08/08/20 04:00: White Blood Count 27.6*H, Red Blood Count 4.40L, Hemoglobin 14.0L, Hematocrit 44.2, Mean Corpuscular Volume 100H, Mean Corpuscular Hemoglobin 31.8H, Mean Corpuscular Hemoglobin Concent 31.7L, Red Cell Distribution Width 12.6, Platelet Count 183, Mean Platelet Volume 6.4L, Neutrophils (%) (Auto) , Lymphocytes (%) (Auto) , Monocytes (%) (Auto) , Eosinophils (%) (Auto) , Basophils (%) (Auto) , Differential Total Cells Counted 100, Neutrophils % (Manual) 96H, Lymphocytes % (Manual) 3L, Monocytes % (Manual) 1, Eosinophils % (Manual) 0, Basophils % (Manual) 0, Band Neutrophils 0, Platelet Estimate Adequate, Platelet Morphology Normal, Red Blood Cell Morphology , Hypochromasia 1+, Macrocytosis 1+, Sodium Level 150H, Potassium Level 5.1, Chloride Level 113H, Carbon Dioxide Level 37H, Anion Gap 0L, Blood Urea Nitrogen 68H, Creatinine 2.1H, Estimat Glomerular Filtration Rate 31.9, Glucose Level 261H, Uric Acid 5.6, Calcium Level 8.3L, Phosphorus Level 4.1, Magnesium Level 3.2H, Total Bilirubin 0.6, Aspartate Amino Transf (AST/SGOT) 64H, Alanine Aminotransferase (ALT/SGPT) 441H, Alkaline Phosphatase 190H, C-Reactive Protein, Quantitative 0.9, Pro-B-Type Natriuretic Peptide 3357H, Total Protein 5.8L, Albumin 2.2L, Globulin 3.6, Albumin/Globulin Ratio 0.6L, Amylase Level 72, Lipase 352 08/08/20 05:53: POC Whole Blood Glucose [Pending] Height (Feet): 5 Height (Inches): 5.00 Weight (Pounds): 160 Assessment/Plan Problem List: (1) Bilateral pneumonia ICD Codes: J18.9 - Pneumonia, unspecified organism SNOMED: 838654844, 501748057 (2) Acute respiratory failure with hypoxia ICD Codes: J96.01 - Acute respiratory failure with hypoxia SNOMED: 47796541, 629089841 (3) Malnutrition ICD Codes: E46 - Unspecified protein-calorie malnutrition SNOMED: 70140471 (4) Shock liver ICD Codes: K72.00 - Acute and subacute hepatic failure without coma SNOMED: 014990241 (5) ERIKA (acute kidney injury) ICD Codes: N17.9 - Acute kidney failure, unspecified SNOMED: 4812923, 00923650 (6) Diabetes mellitus out of control ICD Codes: E11.65 - Type 2 diabetes mellitus with hyperglycemia SNOMED: 79001192, 360304341 Status: progressing, unchanged Assessment/Plan: elev lft sepsis malnutrtion resp failure lpna reviewed chart and labs Rey Hannah MD Aug 08, 2020 20:17
[2020-08-08] MEDS: Dyna-Hex 2% Top Sol 2oz TOPIC SCH (20:18)
[2020-08-08] MEDS: Docusate 100mg/10ml Liq GT SCH (20:19)
[2020-08-08] MEDS: Miralax 17gm pkt ORAL SCH (20:19)
[2020-08-08] MEDS: dilTIAZem HCl 60mg tab GT SCH (22:00)
--- NOTE | 2020-08-08 22:00 | NUR ---
NURSE NOTES: Blood pressure has been on low 110's, no desaturation noted, repositioned on his left side. Will continuously monitor.
[2020-08-09] VITALS (25 sets, daily range): BP systolic 91–120; BP diastolic 49–65
[2020-08-09] MEDS: NovoLOG Insulin Flexpen SUBQ SCH ×5 (00:12→23:34)
--- NOTE | 2020-08-09 00:40 | NUR ---
NURSE NOTES: Morning care was done, given bed bath and applied lotion and cream. Repositioned on his back, no fever nor desaturation noted. Still on sedation of Versed 2mg @ 2 cc/hour and fentanyl 90 mcg @ 9 cc/hour, RASS of -2 at this time. Will continue to monitor for any change of condition.
--- NOTE | 2020-08-09 03:00 | NUR ---
NURSE NOTES: Patient's temperature was ranging from 99.5-99.8, repositioned and cooling measures provided. Will re-check the temperature after 30 minutes.
[2020-08-09 04:58] LABS: HEMATOCRIT 33.8 % (42.0-52.0); HEMOGLOBIN 10.7 G/DL (14.2-18.0); MEAN CORPUSCULAR VOLUME 101 FL (80-99); PLATELET COUNT 112 K/UL (150-450); RED BLOOD COUNT 3.34 M/UL (4.70-6.10); RED CELL DISTRIBUTION WIDTH 12.2 % (11.6-14.8); WHITE BLOOD COUNT 21.5 K/UL (4.8-10.8)
--- NOTE | 2020-08-09 05:30 | NUR ---
NURSE NOTES: Patient has a fever of 100.6. Tylenol 650 given thru OGT, cooling measures continuously provided, will closely monitor.
[2020-08-09] MEDS: Acetaminophen 650mg/20.3ml NG PRN ×2 (05:38→18:29)
[2020-08-09] MEDS: dilTIAZem HCl 60mg tab GT SCH ×5 (06:00→21:41)
[2020-08-09 06:01] LABS: ALANINE AMINOTRANSFERASE 233 U/L (12-78); ALBUMIN/GLOBULIN RATIO 0.7 (1.0-2.7); ALKALINE PHOSPHATASE 117 U/L (46-116); ANION GAP 0 mmol/L (5-15); ASPARTATE AMINO TRANSFERASE 44 U/L (15-37); BILIRUBIN,TOTAL 0.3 MG/DL (0.2-1.0); BLOOD UREA NITROGEN 93 mg/dL (7-18); CALCIUM 7.6 MG/DL (8.5-10.1); CARBON DIOXIDE 36 MMOL/L (21-32); CHLORIDE 113 MMOL/L (98-107); CHOLESTEROL 113 MG/DL (< 200); CREATININE 2.6 MG/DL (0.55-1.30); HDL CHOLESTEROL 21 MG/DL (40-60); POTASSIUM 5.5 MMOL/L (3.5-5.1); SODIUM 149 MMOL/L (136-145); TRIGLYCERIDES 227 MG/DL (30-150)
--- NOTE | 2020-08-09 06:30 | NUR ---
NURSE NOTES: temp 98.7 oral
[2020-08-09 06:32] LABS: PHOSPHORUS 4.7 MG/DL (2.5-4.9)
--- NOTE | 2020-08-09 07:08 | NUR ---
RESPIRATORY NOTE: PT received on ACVC: 16, 550, 100%, +8. Alarms are on and audible. Vent circuit is secure and out of the way. Airway is secure and patent. No s/s of respiratory distress noted at this time. Will continue to closely monitor.
--- NOTE | 2020-08-09 07:45 | NUR ---
NURSE NOTES: Received report from CARLOS Toribio. Will continue to monitor patient.
--- NOTE | 2020-08-09 08:00 | NUR ---
NURSE NOTES: patient is in bed, no signs of grimacing or distress noted. Patient is intubated, ETT 7.5, 24 cm lip, with settings of AC 16, TV 550, FiO2 100%, PEEP 8, tolerating well. On OGT feeding, patent, intact, running Nepro at 35 mL/hr (goal achieved), tolerating well, no residual noted. Has a L UA PICC, patent, intact, asymptomatic, running D5W at 100 mL/hr. HOB elevated, bed on lowest position, side rails up, locked, call light within reach. Will continue to monitor. Will continue plan of care.
[2020-08-09] MEDS: Pantoprazole Inj IVP SCH (08:06)
[2020-08-09] MEDS: Docusate 100mg/10ml Liq GT SCH ×2 (08:06→21:23)
[2020-08-09] MEDS: Solu-MEDROL 40mg Inj IVP SCH ×2 (08:06→21:23)
[2020-08-09] MEDS: Enoxaparin 30mg Inj SUBQ SCH (08:07)
[2020-08-09] MEDS: Levemir Flexpen SUBQ SCH ×2 (08:32→21:25)
--- NOTE | 2020-08-09 09:11 | NUR ---
NURSE NOTES: Medication given. Per previous nurse, patient had a black, runny bowel movement, hence the non administration of Lovenox and Colace. Will order stool culture if stool continues to appear black. Patient will continue to be monitored.
[2020-08-09] MEDS: cefTRIAXone 1 GM in D5W 55 ML IVPB SCH (09:59)
--- NOTE | 2020-08-09 11:45 | General Progress Note ---
Subjective ROS Limited/Unobtainable: Yes Allergies: Coded Allergies: No Known Allergies (Unverified , 07/29/20) Subjective events note interval notes reviewed glucose improved but still elevated Item Value Date Time Bedside Blood Glucose 279 mg/dl H 08/09/20 0832 Bedside Blood Glucose 264 mg/dl H 08/09/20 0600 Bedside Blood Glucose 236 mg/dl H 08/09/20 0012 Bedside Blood Glucose 221 mg/dl H 08/08/20 2031 Bedside Blood Glucose 188 mg/dl H 08/08/20 1810 Bedside Blood Glucose 198 mg/dl H 08/08/20 1203 Bedside Blood Glucose 238 mg/dl H 08/08/20 0950 Objective Last 24 Hour Vital Signs Date Time Temp Pulse Resp B/P (MAP) Pulse Ox O2 Delivery O2 Flow Rate FiO2 08/09/20 10:00 93 16 102/54 (70) 99 08/09/20 09:00 88 16 113/61 (78) 100 08/09/20 08:00 Mechanical Ventilator 08/09/20 08:00 100 08/09/20 08:00 97.8 91 16 99/50 (66) 99 08/09/20 07:15 87 08/09/20 07:00 88 16 105/61 (76) 100 08/09/20 06:08 98.7 08/09/20 06:00 90 16 96/49 (65) 100 08/09/20 06:00 90 96/49 08/09/20 05:30 100.6 91 16 106/54 (71) 100 08/09/20 05:00 100.3 90 16 112/57 (75) 100 08/09/20 04:00 Mechanical Ventilator 08/09/20 04:00 88 08/09/20 04:00 99.9 92 16 97/52 (67) 100 08/09/20 04:00 100 08/09/20 03:00 99.8 86 16 107/54 (71) 100 08/09/20 02:00 85 16 107/54 (71) 100 08/09/20 01:44 86 16 100 08/09/20 01:00 84 16 112/57 (75) 100 08/09/20 00:00 79 08/09/20 00:00 Mechanical Ventilator 08/09/20 00:00 100 08/09/20 00:00 99.0 90 18 91/55 (67) 88 08/08/20 23:00 79 16 113/62 (79) 96 08/08/20 22:00 88 98/55 08/08/20 22:00 80 16 104/55 (71) 95 08/08/20 21:00 78 16 107/53 (71) 94 08/08/20 20:00 69 08/08/20 20:00 98.7 78 16 101/53 (69) 96 08/08/20 20:00 Mechanical Ventilator 08/08/20 19:00 130 16 110/65 (80) 97 08/08/20 18:40 131 16 100 08/08/20 18:00 131 16 84/63 (70) 95 08/08/20 17:30 128 17 93/63 (73) 95 08/08/20 17:15 100 08/08/20 17:00 130 19 84/49 (61) 87 08/08/20 16:30 68 16 102/51 (68) 87 08/08/20 16:00 90 08/08/20 16:00 Mechanical Ventilator 08/08/20 16:00 68 16 99/51 (67) 88 08/08/20 16:00 69 08/08/20 15:40 132 16 100 08/08/20 15:30 69 16 93/50 (64) 88 08/08/20 15:00 75 17 113/63 (80) 91 08/08/20 14:03 100 08/08/20 14:00 76 16 105/58 (74) 96 08/08/20 13:30 71 16 88/44 (59) 97 08/08/20 13:00 73 16 85/43 (57) 97 08/08/20 12:57 81 101/56 08/08/20 12:30 77 16 101/56 (71) 94 08/08/20 12:00 90 08/08/20 12:00 75 08/08/20 12:00 74 16 105/63 (77) 95 08/08/20 12:00 Mechanical Ventilator 08/08/20 11:46 90 Intake and Output 08/08/20 08/09/20 19:00 07:00 Intake Total 1415 ml 1720 ml Output Total 820 ml 640 ml Balance 595 ml 1080 ml Free Water 240 ml 50 ml IV Total 755 ml 1200 ml Tube Feeding 420 ml 420 ml Other 50 ml Output Urine Total 820 ml 640 ml # Bowel Movements 1 1 Laboratory Tests 08/09/20 03:30: White Blood Count 21.5H, Red Blood Count 3.34L, Hemoglobin 10.7L, Hematocrit 33.8L, Mean Corpuscular Volume 101H, Mean Corpuscular Hemoglobin 32.2H, Mean Corpuscular Hemoglobin Concent 31.8L, Red Cell Distribution Width 12.2, Platelet Count 112L, Mean Platelet Volume 7.9, Neutrophils (%) (Auto) , Lymphocytes (%) (Auto) , Monocytes (%) (Auto) , Eosinophils (%) (Auto) , Basophils (%) (Auto) , Differential Total Cells Counted 100, Neutrophils % (Manual) 94H, Lymphocytes % (Manual) 1L, Monocytes % (Manual) 5, Eosinophils % (Manual) 0, Basophils % (Manual) 0, Band Neutrophils 0, Platelet Estimate DecreasedL, Platelet Morphology Normal, Macrocytosis 1+, Sodium Level 149H, Potassium Level 5.5H, Chloride Level 113H, Carbon Dioxide Level 36H, Anion Gap 0L, Blood Urea Nitrogen 93H, Creatinine 2.6H, Estimat Glomerular Filtration Rate 24.9, Glucose Level 254H, Calcium Level 7.6L, Phosphorus Level 4.7, Total Bilirubin 0.3, Aspartate Amino Transf (AST/SGOT) 44H, Alanine Aminotransferase (ALT/SGPT) 233H, Alkaline Phosphatase 117H, C-Reactive Protein, Quantitative 0.8, Pro-B-Type Natriuretic Peptide 2434H, Total Protein 4.8L, Albumin 2.0L, Globulin 2.8, Albumin/Globulin Ratio 0.7L, Triglycerides Level 227H, Cholesterol Level 113, LDL Cholesterol 65, HDL Cholesterol 21L, Cholesterol/HDL Ratio 5.4H 08/09/20 05:34: POC Whole Blood Glucose 264H 08/09/20 09:39: Arterial Blood pH 7.257L, Arterial Blood Partial Pressure CO2 78.7*H, Arterial Blood Partial Pressure O2 93.1, Arterial Blood HCO3 34.3H, Arterial Blood Oxygen Saturation 96.6, Arterial Blood Base Excess 5.1H, Mehdi Test Positive Height (Feet): 5 Height (Inches): 5.00 Weight (Pounds): 160 Objective Current Medications Medications (Trade) Dose Ordered Sig/Fabiano Route PRN Reason Start Time Stop Time Status Last Admin Dose Admin Acetaminophen (Tylenol) 650 mg Q4H PRN NG Temp >100.5 08/03/20 04:15 09/02/20 04:14 08/09/20 05:38 Acetaminophen (Tylenol) 650 mg Q4H PRN RECTAL Temp >100.5 08/01/20 20:30 08/31/20 20:29 08/02/20 10:28 Albuterol Sulfate (Proventil MDI) 2 puff Q4H PRN INH Shortness of Breath 07/29/20 22:45 10/27/20 22:44 Ceftriaxone Sodium 1 gm/ Dextrose 55 ml @ 110 mls/hr Q24H IVPB 08/07/20 10:00 08/14/20 09:59 08/09/20 09:59 Cetylpyridinium Chloride (Cepacol) 1 lozg Q2H PRN [place] For Cough 07/30/20 21:00 10/28/20 20:59 08/01/20 08:47 Chlorhexidine Gluconate (Marisela-Hex 2%) 1 applic DAILY@2000 TOPIC 08/08/20 20:00 11/06/20 19:59 08/08/20 20:18 Clonidine HCl (Catapres Tab) 0.1 mg Q2H PRN ORAL SBP > 170mmHg 08/04/20 09:45 11/02/20 09:44 08/07/20 23:20 Dextrose 1,000 ml @ 100 mls/hr Q10H IV 08/06/20 12:15 09/05/20 12:14 08/09/20 09:59 Dextrose (Dextrose 50%) 25 ml Q30M PRN IV Hypoglycemia 08/06/20 10:45 11/04/20 10:44 Dextrose (Dextrose 50%) 50 ml Q30M PRN IV Hypoglycemia 08/06/20 10:45 11/04/20 10:44 Diltiazem HCl (Cardizem Tab) 120 mg Q8HR GT 08/08/20 22:00 09/07/20 21:59 Docusate Sodium (Colace) 100 mg Q12HR GT 08/08/20 21:00 09/07/20 20:59 08/08/20 20:19 Enoxaparin Sodium (Lovenox) 30 mg DAILY SUBQ 08/02/20 10:00 10/31/20 09:59 08/08/20 08:24 Guaifenesin/ Dextromethorphan (Robitussin DM Syrup) 15 ml Q6H PRN ORAL For Cough 07/31/20 08:30 10/29/20 08:29 08/01/20 08:47 Heparin Sodium/ Sodium Chloride (Heparin 1000 units/500ml Premix) 1,000 unit ONCE PRN IV picc line placement 08/08/20 14:15 08/10/20 14:14 Insulin Aspart (NovoLOG) Q6HR SUBQ 08/06/20 12:00 11/04/20 11:59 08/09/20 05:38 Insulin Detemir (Levemir) 24 units Q12HR SUBQ 08/08/20 09:00 11/04/20 20:59 08/09/20 08:32 Lidocaine HCl (Xylocaine 1% 30ml) 30 ml ONCE PRN INJ picc line placement 08/08/20 14:15 08/10/20 14:14 Methylprednisolone Sodium Succinate (Solu-MEDROL) 40 mg EVERY 12 HOURS IVP 08/04/20 12:30 11/02/20 12:29 08/09/20 08:06 Norepinephrine Bitartrate 4 mg/ Sodium Chloride 250 ml @ 0 mls/hr Q24H PRN IV For hypotension 08/08/20 17:15 08/11/20 17:14 Pantoprazole (Protonix) 40 mg DAILY IVP 08/06/20 10:00 09/05/20 09:59 08/09/20 08:06 Polyethylene Glycol (Miralax) 17 gm BEDTIME ORAL 08/06/20 21:00 09/05/20 20:59 08/08/20 20:19 Assessment/Plan Problem List: (1) Diabetes mellitus out of control ICD Codes: E11.65 - Type 2 diabetes mellitus with hyperglycemia SNOMED: 83617828, 868041379 (2) Acute respiratory failure with hypoxia ICD Codes: J96.01 - Acute respiratory failure with hypoxia SNOMED: 67239726, 136448559 (3) Bilateral pneumonia ICD Codes: J18.9 - Pneumonia, unspecified organism SNOMED: 708315490, 470649164 Status: progressing, unchanged Assessment/Plan: increase Levemir to 30 units bid continue Novolog sliding scale every 6 hours Jeffrey Sinclair MD Aug 09, 2020 11:45
--- NOTE | 2020-08-09 12:17 | Surgery Progress Note ---
Surgery Progress Note Subjective Additional Comments ETT 7.5, 24 cm lip, with settings of AC 16, TV 550, FiO2 100%, PEEP 8 ill appearing on support lab noted weaning but difficult Objective Last 24 Hour Vital Signs Date Time Temp Pulse Resp B/P (MAP) Pulse Ox O2 Delivery O2 Flow Rate FiO2 08/09/20 12:00 100 08/09/20 12:00 Mechanical Ventilator 08/09/20 10:00 93 16 102/54 (70) 99 08/09/20 09:00 88 16 113/61 (78) 100 08/09/20 08:00 Mechanical Ventilator 08/09/20 08:00 100 08/09/20 08:00 97.8 91 16 99/50 (66) 99 08/09/20 07:15 87 08/09/20 07:00 88 16 105/61 (76) 100 08/09/20 06:08 98.7 08/09/20 06:00 90 16 96/49 (65) 100 08/09/20 06:00 90 96/49 08/09/20 05:30 100.6 91 16 106/54 (71) 100 08/09/20 05:00 100.3 90 16 112/57 (75) 100 08/09/20 04:00 Mechanical Ventilator 08/09/20 04:00 88 08/09/20 04:00 99.9 92 16 97/52 (67) 100 08/09/20 04:00 100 08/09/20 03:00 99.8 86 16 107/54 (71) 100 08/09/20 02:00 85 16 107/54 (71) 100 08/09/20 01:44 86 16 100 08/09/20 01:00 84 16 112/57 (75) 100 08/09/20 00:00 79 08/09/20 00:00 Mechanical Ventilator 08/09/20 00:00 100 08/09/20 00:00 99.0 90 18 91/55 (67) 88 08/08/20 23:00 79 16 113/62 (79) 96 08/08/20 22:00 88 98/55 08/08/20 22:00 80 16 104/55 (71) 95 08/08/20 21:00 78 16 107/53 (71) 94 08/08/20 20:00 69 08/08/20 20:00 98.7 78 16 101/53 (69) 96 08/08/20 20:00 Mechanical Ventilator 08/08/20 19:00 130 16 110/65 (80) 97 08/08/20 18:40 131 16 100 08/08/20 18:00 131 16 84/63 (70) 95 08/08/20 17:30 128 17 93/63 (73) 95 08/08/20 17:15 100 08/08/20 17:00 130 19 84/49 (61) 87 08/08/20 16:30 68 16 102/51 (68) 87 08/08/20 16:00 90 08/08/20 16:00 Mechanical Ventilator 08/08/20 16:00 68 16 99/51 (67) 88 08/08/20 16:00 69 08/08/20 15:40 132 16 100 08/08/20 15:30 69 16 93/50 (64) 88 08/08/20 15:00 75 17 113/63 (80) 91 08/08/20 14:03 100 08/08/20 14:00 76 16 105/58 (74) 96 08/08/20 13:30 71 16 88/44 (59) 97 08/08/20 13:00 73 16 85/43 (57) 97 08/08/20 12:57 81 101/56 08/08/20 12:30 77 16 101/56 (71) 94 I&O Intake and Output 0 08/08/20 08/09/20 19:00 07:00 Intake Total 1415 ml 1720 ml Output Total 820 ml 640 ml Balance 595 ml 1080 ml Free Water 240 ml 50 ml IV Total 755 ml 1200 ml Tube Feeding 420 ml 420 ml Other 50 ml Output Urine Total 820 ml 640 ml # Bowel Movements 1 1 Dressing: other Wound: other Cardiovascular: RSR Respiratory: decreased breath sounds Abdomen: soft, non-tender, present bowel sounds, non-distended Extremities: no tenderness, no cyanosis Laboratory Tests Test 08/09/20 03:30 08/09/20 05:34 08/09/20 09:39 White Blood Count 21.5 K/UL (4.8-10.8) H Red Blood Count 3.34 M/UL (4.70-6.10) L Hemoglobin 10.7 G/DL (14.2-18.0) L Hematocrit 33.8 % (42.0-52.0) L Mean Corpuscular Volume 101 FL (80-99) H Mean Corpuscular Hemoglobin 32.2 PG (27.0-31.0) H Mean Corpuscular Hemoglobin Concent 31.8 G/DL (32.0-36.0) L Red Cell Distribution Width 12.2 % (11.6-14.8) Platelet Count 112 K/UL (150-450) L Mean Platelet Volume 7.9 FL (6.5-10.1) Neutrophils (%) (Auto) % (45.0-75.0) Lymphocytes (%) (Auto) % (20.0-45.0) Monocytes (%) (Auto) % (1.0-10.0) Eosinophils (%) (Auto) % (0.0-3.0) Basophils (%) (Auto) % (0.0-2.0) Differential Total Cells Counted 100 Neutrophils % (Manual) 94 % (45-75) H Lymphocytes % (Manual) 1 % (20-45) L Monocytes % (Manual) 5 % (1-10) Eosinophils % (Manual) 0 % (0-3) Basophils % (Manual) 0 % (0-2) Band Neutrophils 0 % (0-8) Platelet Estimate Decreased L Platelet Morphology Normal Macrocytosis 1+ Sodium Level 149 MMOL/L (136-145) H Potassium Level 5.5 MMOL/L (3.5-5.1) H Chloride Level 113 MMOL/L (98-107) H Carbon Dioxide Level 36 MMOL/L (21-32) H Anion Gap 0 mmol/L (5-15) L Blood Urea Nitrogen 93 mg/dL (7-18) H Creatinine 2.6 MG/DL (0.55-1.30) H Estimat Glomerular Filtration Rate 24.9 mL/min (>60) Glucose Level 254 MG/DL (74-106) H Calcium Level 7.6 MG/DL (8.5-10.1) L Phosphorus Level 4.7 MG/DL (2.5-4.9) Total Bilirubin 0.3 MG/DL (0.2-1.0) Aspartate Amino Transf (AST/SGOT) 44 U/L (15-37) H Alanine Aminotransferase (ALT/SGPT) 233 U/L (12-78) H Alkaline Phosphatase 117 U/L (46-116) H C-Reactive Protein, Quantitative 0.8 mg/dL (0.00-0.90) Pro-B-Type Natriuretic Peptide 2434 pg/mL (0-125) H Total Protein 4.8 G/DL (6.4-8.2) L Albumin 2.0 G/DL (3.4-5.0) L Globulin 2.8 g/dL Albumin/Globulin Ratio 0.7 (1.0-2.7) L Triglycerides Level 227 MG/DL (30-150) H Cholesterol Level 113 MG/DL (< 200) LDL Cholesterol 65 mg/dL (<100) HDL Cholesterol 21 MG/DL (40-60) L Cholesterol/HDL Ratio 5.4 (3.3-4.4) H POC Whole Blood Glucose 264 MG/DL (74-106) H Arterial Blood pH 7.257 (7.350-7.450) Arterial Blood Partial Pressure CO2 78.7 mmHg (35.0-45.0) *H Arterial Blood Partial Pressure O2 93.1 mmHg (75.0-100.0) Arterial Blood HCO3 34.3 mmol/L (22.0-26.0) H Arterial Blood Oxygen Saturation 96.6 % (95-100) Arterial Blood Base Excess 5.1 (-2-2) H Mehdi Test Positive Plan Problems: (1) Hypoxia (2) Bilateral pneumonia (3) Acute respiratory failure with hypoxia Assessment & Plan: ards covid negative as per pulm id input appreciated abd pain likely cramping indigestion from ill ness ppi ordered okay for diet monitor intake am labs will follow with exam and recs acute decline intubated in ICU on vent liver insufficiency acute hepatic in sufficiency renal insufficiency no acute surgical intervention needs resuscitation meds reviewed (4) Bradycardia (5) Malnutrition Assessment & Plan: DAILY ESTIMATED NEEDS: Needs based on [facility] care 64.5kg abw 22-28 kcals/kg 7008-7788 total kcals 1.2-2 g protein/kg 77-129 g total protein 25-30 mL/kg 3573-3204 total fluid mLs NUTRITION DIAGNOSIS: Altered nutrition related lab values related to clinical status as evidenced by elev LD(665), elev WBC(trending down 17.7), elev BG(132-176), elevated lytes(K, phos, mg), elev renal labs ([id number], creat 3.2), elev LFT's ENTERAL NUTRITION RECOMMENDATIONS: As medically able, rec non oral feeds: NEPRO @35ml/hr x24 hrs to provide 840ml, 1512 kcal, 68g pro, 611ml free H2O - With hemodynamic stability, rec OGt feeds to meet est needs. - Start Nepro @15ml/hr for 6 hrs, advance as tolerated 10ml/hr q4-6 hrs to goal - Flush per MD. HOB over 30 degrees - When tolerating TF at goal, add Prosource 1 pack daily to better meet est pro needs. ADDITIONAL RECOMMENDATIONS: 1) recalibrate bed scale wt for accurate CBW 2) Monitor BG, need for NISS 3) TF recs as above when stable for feeds . (6) Shock liver Assessment & Plan: worsening lft's likely hydration resuscitation trend labs improving (7) ERIKA (acute kidney injury) Vern Quevedo Aug 09, 2020 12:17
--- NOTE | 2020-08-09 12:50 | Infectious Diseases Prog Note ---
Assessment/Plan Assessment/Plan A; Pneumonia,with COVID19 disease Leukocytosis worsening Acute renal failure Hyperkalemia Hypoxemia Lactic acidosis Elevated transaminase DM type 2 with Hyperglycemia PLAN: 1. Continue Rocephin 2. Continue Solumedrol 3. Continue isolation. Subjective ROS Limited/Unobtainable: Yes Constitutional: Reports: fever, other - low grade, Bl=451.6 Allergies: Coded Allergies: No Known Allergies (Unverified , 07/29/20) Objective Last 24 Hour Vital Signs Date Time Temp Pulse Resp B/P (MAP) Pulse Ox O2 Delivery O2 Flow Rate FiO2 08/09/20 12:00 100 08/09/20 12:00 Mechanical Ventilator 08/09/20 11:00 93 16 100 08/09/20 10:00 93 16 102/54 (70) 99 08/09/20 09:00 88 16 113/61 (78) 100 08/09/20 08:00 Mechanical Ventilator 08/09/20 08:00 100 08/09/20 08:00 97.8 91 16 99/50 (66) 99 08/09/20 07:15 87 08/09/20 07:08 86 16 100 08/09/20 07:00 88 16 105/61 (76) 100 08/09/20 06:08 98.7 08/09/20 06:00 90 16 96/49 (65) 100 08/09/20 06:00 90 96/49 08/09/20 05:30 100.6 91 16 106/54 (71) 100 08/09/20 05:00 100.3 90 16 112/57 (75) 100 08/09/20 04:00 Mechanical Ventilator 08/09/20 04:00 88 08/09/20 04:00 99.9 92 16 97/52 (67) 100 08/09/20 04:00 100 08/09/20 03:00 99.8 86 16 107/54 (71) 100 08/09/20 02:00 85 16 107/54 (71) 100 08/09/20 01:44 86 16 100 08/09/20 01:00 84 16 112/57 (75) 100 08/09/20 00:00 79 08/09/20 00:00 Mechanical Ventilator 08/09/20 00:00 100 08/09/20 00:00 99.0 90 18 91/55 (67) 88 08/08/20 23:00 79 16 113/62 (79) 96 08/08/20 22:00 88 98/55 08/08/20 22:00 80 16 104/55 (71) 95 08/08/20 21:00 78 16 107/53 (71) 94 08/08/20 20:00 69 08/08/20 20:00 98.7 78 16 101/53 (69) 96 08/08/20 20:00 Mechanical Ventilator 08/08/20 19:00 130 16 110/65 (80) 97 08/08/20 18:40 131 16 100 08/08/20 18:00 131 16 84/63 (70) 95 08/08/20 17:30 128 17 93/63 (73) 95 08/08/20 17:15 100 08/08/20 17:00 130 19 84/49 (61) 87 08/08/20 16:30 68 16 102/51 (68) 87 08/08/20 16:00 90 08/08/20 16:00 Mechanical Ventilator 08/08/20 16:00 68 16 99/51 (67) 88 08/08/20 16:00 69 08/08/20 15:40 132 16 100 08/08/20 15:30 69 16 93/50 (64) 88 08/08/20 15:00 75 17 113/63 (80) 91 08/08/20 14:03 100 08/08/20 14:00 76 16 105/58 (74) 96 08/08/20 13:30 71 16 88/44 (59) 97 08/08/20 13:00 73 16 85/43 (57) 97 08/08/20 12:57 81 101/56 Height (Feet): 5 Height (Inches): 5.00 Weight (Pounds): 160 HEENT: other - oraaly intubated, on ventilator, VPD0=434% Cardiovascular: normal rate, other - left arm PICC line Abdomen: soft, non tender, other - OG tube Extremities: other - hands edema Neurologic/Psychiatric: aphasia Laboratory Tests Test 08/09/20 03:30 08/09/20 05:34 08/09/20 09:39 White Blood Count 21.5 K/UL (4.8-10.8) H Red Blood Count 3.34 M/UL (4.70-6.10) L Hemoglobin 10.7 G/DL (14.2-18.0) L Hematocrit 33.8 % (42.0-52.0) L Mean Corpuscular Volume 101 FL (80-99) H Mean Corpuscular Hemoglobin 32.2 PG (27.0-31.0) H Mean Corpuscular Hemoglobin Concent 31.8 G/DL (32.0-36.0) L Red Cell Distribution Width 12.2 % (11.6-14.8) Platelet Count 112 K/UL (150-450) L Mean Platelet Volume 7.9 FL (6.5-10.1) Neutrophils (%) (Auto) % (45.0-75.0) Lymphocytes (%) (Auto) % (20.0-45.0) Monocytes (%) (Auto) % (1.0-10.0) Eosinophils (%) (Auto) % (0.0-3.0) Basophils (%) (Auto) % (0.0-2.0) Differential Total Cells Counted 100 Neutrophils % (Manual) 94 % (45-75) H Lymphocytes % (Manual) 1 % (20-45) L Monocytes % (Manual) 5 % (1-10) Eosinophils % (Manual) 0 % (0-3) Basophils % (Manual) 0 % (0-2) Band Neutrophils 0 % (0-8) Platelet Estimate Decreased L Platelet Morphology Normal Macrocytosis 1+ Sodium Level 149 MMOL/L (136-145) H Potassium Level 5.5 MMOL/L (3.5-5.1) H Chloride Level 113 MMOL/L (98-107) H Carbon Dioxide Level 36 MMOL/L (21-32) H Anion Gap 0 mmol/L (5-15) L Blood Urea Nitrogen 93 mg/dL (7-18) H Creatinine 2.6 MG/DL (0.55-1.30) H Estimat Glomerular Filtration Rate 24.9 mL/min (>60) Glucose Level 254 MG/DL (74-106) H Calcium Level 7.6 MG/DL (8.5-10.1) L Phosphorus Level 4.7 MG/DL (2.5-4.9) Total Bilirubin 0.3 MG/DL (0.2-1.0) Aspartate Amino Transf (AST/SGOT) 44 U/L (15-37) H Alanine Aminotransferase (ALT/SGPT) 233 U/L (12-78) H Alkaline Phosphatase 117 U/L (46-116) H C-Reactive Protein, Quantitative 0.8 mg/dL (0.00-0.90) Pro-B-Type Natriuretic Peptide 2434 pg/mL (0-125) H Total Protein 4.8 G/DL (6.4-8.2) L Albumin 2.0 G/DL (3.4-5.0) L Globulin 2.8 g/dL Albumin/Globulin Ratio 0.7 (1.0-2.7) L Triglycerides Level 227 MG/DL (30-150) H Cholesterol Level 113 MG/DL (< 200) LDL Cholesterol 65 mg/dL (<100) HDL Cholesterol 21 MG/DL (40-60) L Cholesterol/HDL Ratio 5.4 (3.3-4.4) H POC Whole Blood Glucose 264 MG/DL (74-106) H Arterial Blood pH 7.257 (7.350-7.450) Arterial Blood Partial Pressure CO2 78.7 mmHg (35.0-45.0) *H Arterial Blood Partial Pressure O2 93.1 mmHg (75.0-100.0) Arterial Blood HCO3 34.3 mmol/L (22.0-26.0) H Arterial Blood Oxygen Saturation 96.6 % (95-100) Arterial Blood Base Excess 5.1 (-2-2) H Mehdi Test Positive Current Medications Medications (Trade) Dose Ordered Sig/Fabiano Route PRN Reason Start Time Stop Time Status Last Admin Dose Admin Acetaminophen (Tylenol) 650 mg Q4H PRN NG Temp >100.5 08/03/20 04:15 09/02/20 04:14 08/09/20 05:38 Acetaminophen (Tylenol) 650 mg Q4H PRN RECTAL Temp >100.5 08/01/20 20:30 08/31/20 20:29 08/02/20 10:28 Albuterol Sulfate (Proventil MDI) 2 puff Q4H PRN INH Shortness of Breath 07/29/20 22:45 10/27/20 22:44 Ceftriaxone Sodium 1 gm/ Dextrose 55 ml @ 110 mls/hr Q24H IVPB 08/07/20 10:00 08/14/20 09:59 08/09/20 09:59 Cetylpyridinium Chloride (Cepacol) 1 lozg Q2H PRN [place] For Cough 07/30/20 21:00 10/28/20 20:59 08/01/20 08:47 Chlorhexidine Gluconate (Marisela-Hex 2%) 1 applic DAILY@2000 TOPIC 08/08/20 20:00 11/06/20 19:59 08/08/20 20:18 Clonidine HCl (Catapres Tab) 0.1 mg Q2H PRN ORAL SBP > 170mmHg 08/04/20 09:45 11/02/20 09:44 08/07/20 23:20 Dextrose 1,000 ml @ 100 mls/hr Q10H IV 08/06/20 12:15 09/05/20 12:14 08/09/20 09:59 Dextrose (Dextrose 50%) 25 ml Q30M PRN IV Hypoglycemia 08/06/20 10:45 11/04/20 10:44 Dextrose (Dextrose 50%) 50 ml Q30M PRN IV Hypoglycemia 08/06/20 10:45 11/04/20 10:44 Diltiazem HCl (Cardizem Tab) 120 mg Q8HR GT 08/08/20 22:00 09/07/20 21:59 Docusate Sodium (Colace) 100 mg Q12HR GT 08/08/20 21:00 09/07/20 20:59 08/08/20 20:19 Enoxaparin Sodium (Lovenox) 30 mg DAILY SUBQ 08/02/20 10:00 10/31/20 09:59 08/08/20 08:24 Guaifenesin/ Dextromethorphan (Robitussin DM Syrup) 15 ml Q6H PRN ORAL For Cough 07/31/20 08:30 10/29/20 08:29 08/01/20 08:47 Heparin Sodium/ Sodium Chloride (Heparin 1000 units/500ml Premix) 1,000 unit ONCE PRN IV picc line placement 08/08/20 14:15 08/10/20 14:14 Insulin Aspart (NovoLOG) Q6HR SUBQ 08/06/20 12:00 11/04/20 11:59 08/09/20 12:02 Insulin Detemir (Levemir) 24 units Q12HR SUBQ 08/08/20 09:00 11/04/20 20:59 08/09/20 08:32 Lidocaine HCl (Xylocaine 1% 30ml) 30 ml ONCE PRN INJ picc line placement 08/08/20 14:15 08/10/20 14:14 Methylprednisolone Sodium Succinate (Solu-MEDROL) 40 mg EVERY 12 HOURS IVP 08/04/20 12:30 11/02/20 12:29 08/09/20 08:06 Norepinephrine Bitartrate 4 mg/ Sodium Chloride 250 ml @ 0 mls/hr Q24H PRN IV For hypotension 08/08/20 17:15 08/11/20 17:14 Pantoprazole (Protonix) 40 mg DAILY IVP 08/06/20 10:00 09/05/20 09:59 08/09/20 08:06 Polyethylene Glycol (Miralax) 17 gm BEDTIME ORAL 08/06/20 21:00 09/05/20 20:59 08/08/20 20:19 Jose Antonio Klein MD Aug 09, 2020 12:50
--- NOTE | 2020-08-09 14:07 | Pulmonology Progress Note ---
Subjective ROS Limited/Unobtainable: Yes Interval Events: Intubated 08/01/20 Constitutional: Reports: fever, other - low grade, Rv=147.6 HEENT: Repors: no symptoms Respiratory: Reports: no symptoms Cardiovascular: Reports: no symptoms Gastrointestinal/Abdominal: Reports: no symptoms; Denies: nausea, vomiting, diarrhea Musculoskeletal: Denies: pain Allergies: Coded Allergies: No Known Allergies (Unverified , 07/29/20) All Systems: reviewed and negative except above Objective Last 24 Hour Vital Signs Date Time Temp Pulse Resp B/P (MAP) Pulse Ox O2 Delivery O2 Flow Rate FiO2 08/09/20 12:00 100 08/09/20 12:00 98.3 94 16 120/65 (83) 100 08/09/20 12:00 Mechanical Ventilator 08/09/20 11:30 90 08/09/20 11:00 89 16 117/64 (81) 100 08/09/20 11:00 93 16 100 08/09/20 10:00 93 16 102/54 (70) 99 08/09/20 09:00 88 16 113/61 (78) 100 08/09/20 08:00 Mechanical Ventilator 08/09/20 08:00 100 08/09/20 08:00 97.8 91 16 99/50 (66) 99 08/09/20 07:15 87 08/09/20 07:08 86 16 100 08/09/20 07:00 88 16 105/61 (76) 100 08/09/20 06:08 98.7 08/09/20 06:00 90 16 96/49 (65) 100 08/09/20 06:00 90 96/49 08/09/20 05:30 100.6 91 16 106/54 (71) 100 08/09/20 05:00 100.3 90 16 112/57 (75) 100 08/09/20 04:00 Mechanical Ventilator 08/09/20 04:00 88 08/09/20 04:00 99.9 92 16 97/52 (67) 100 08/09/20 04:00 100 08/09/20 03:00 99.8 86 16 107/54 (71) 100 08/09/20 02:00 85 16 107/54 (71) 100 08/09/20 01:44 86 16 100 08/09/20 01:00 84 16 112/57 (75) 100 08/09/20 00:00 79 08/09/20 00:00 Mechanical Ventilator 08/09/20 00:00 100 08/09/20 00:00 99.0 90 18 91/55 (67) 88 08/08/20 23:00 79 16 113/62 (79) 96 08/08/20 22:00 88 98/55 08/08/20 22:00 80 16 104/55 (71) 95 08/08/20 21:00 78 16 107/53 (71) 94 08/08/20 20:00 69 08/08/20 20:00 98.7 78 16 101/53 (69) 96 08/08/20 20:00 Mechanical Ventilator 08/08/20 19:00 130 16 110/65 (80) 97 08/08/20 18:40 131 16 100 08/08/20 18:00 131 16 84/63 (70) 95 08/08/20 17:30 128 17 93/63 (73) 95 08/08/20 17:15 100 08/08/20 17:00 130 19 84/49 (61) 87 08/08/20 16:30 68 16 102/51 (68) 87 08/08/20 16:00 90 08/08/20 16:00 Mechanical Ventilator 08/08/20 16:00 68 16 99/51 (67) 88 08/08/20 16:00 69 08/08/20 15:40 132 16 100 08/08/20 15:30 69 16 93/50 (64) 88 08/08/20 15:00 75 17 113/63 (80) 91 Intake and Output 08/08/20 08/09/20 19:00 07:00 Intake Total 1415 ml 1720 ml Output Total 820 ml 640 ml Balance 595 ml 1080 ml Free Water 240 ml 50 ml IV Total 755 ml 1200 ml Tube Feeding 420 ml 420 ml Other 50 ml Output Urine Total 820 ml 640 ml # Bowel Movements 1 1 General Appearance: no acute distress HEENT: normocephalic, atraumatic Respiratory: lungs clear Cardiovascular: normal rate, regular rhythm Abdomen: soft, non tender Laboratory Tests 08/09/20 03:30: White Blood Count 21.5H, Red Blood Count 3.34L, Hemoglobin 10.7L, Hematocrit 33.8L, Mean Corpuscular Volume 101H, Mean Corpuscular Hemoglobin 32.2H, Mean Corpuscular Hemoglobin Concent 31.8L, Red Cell Distribution Width 12.2, Platelet Count 112L, Mean Platelet Volume 7.9, Neutrophils (%) (Auto) , Lymphocytes (%) (Auto) , Monocytes (%) (Auto) , Eosinophils (%) (Auto) , Basophils (%) (Auto) , Differential Total Cells Counted 100, Neutrophils % (Manual) 94H, Lymphocytes % (Manual) 1L, Monocytes % (Manual) 5, Eosinophils % (Manual) 0, Basophils % (Manual) 0, Band Neutrophils 0, Platelet Estimate DecreasedL, Platelet Morphology Normal, Macrocytosis 1+, Sodium Level 149H, Potassium Level 5.5H, Chloride Level 113H, Carbon Dioxide Level 36H, Anion Gap 0L, Blood Urea Nitrogen 93H, Creatinine 2.6H, Estimat Glomerular Filtration Rate 24.9, Glucose Level 254H, Calcium Level 7.6L, Phosphorus Level 4.7, Total Bilirubin 0.3, Aspartate Amino Transf (AST/SGOT) 44H, Alanine Aminotransferase (ALT/SGPT) 233H, Alkaline Phosphatase 117H, C-Reactive Protein, Quantitative 0.8, Pro-B-Type Natriuretic Peptide 2434H, Total Protein 4.8L, Albumin 2.0L, Globulin 2.8, Albumin/Globulin Ratio 0.7L, Triglycerides Level 227H, Cholesterol Level 113, LDL Cholesterol 65, HDL Cholesterol 21L, Cholesterol/HDL Ratio 5.4H 08/09/20 05:34: POC Whole Blood Glucose 264H 08/09/20 09:39: Arterial Blood pH 7.257L, Arterial Blood Partial Pressure CO2 78.7*H, Arterial Blood Partial Pressure O2 93.1, Arterial Blood HCO3 34.3H, Arterial Blood Oxygen Saturation 96.6, Arterial Blood Base Excess 5.1H, Mehdi Test Positive Current Medications Medications (Trade) Dose Ordered Sig/Fabiano Route PRN Reason Start Time Stop Time Status Last Admin Dose Admin Acetaminophen (Tylenol) 650 mg Q4H PRN NG Temp >100.5 08/03/20 04:15 09/02/20 04:14 08/09/20 05:38 Acetaminophen (Tylenol) 650 mg Q4H PRN RECTAL Temp >100.5 08/01/20 20:30 08/31/20 20:29 08/02/20 10:28 Albuterol Sulfate (Proventil MDI) 2 puff Q4H PRN INH Shortness of Breath 07/29/20 22:45 10/27/20 22:44 Ceftriaxone Sodium 1 gm/ Dextrose 55 ml @ 110 mls/hr Q24H IVPB 08/07/20 10:00 08/14/20 09:59 08/09/20 09:59 Cetylpyridinium Chloride (Cepacol) 1 lozg Q2H PRN [place] For Cough 07/30/20 21:00 10/28/20 20:59 08/01/20 08:47 Chlorhexidine Gluconate (Marisela-Hex 2%) 1 applic DAILY@2000 TOPIC 08/08/20 20:00 11/06/20 19:59 08/08/20 20:18 Clonidine HCl (Catapres Tab) 0.1 mg Q2H PRN ORAL SBP > 170mmHg 08/04/20 09:45 11/02/20 09:44 08/07/20 23:20 Dextrose 1,000 ml @ 100 mls/hr Q10H IV 08/06/20 12:15 09/05/20 12:14 08/09/20 09:59 Dextrose (Dextrose 50%) 25 ml Q30M PRN IV Hypoglycemia 08/06/20 10:45 11/04/20 10:44 Dextrose (Dextrose 50%) 50 ml Q30M PRN IV Hypoglycemia 08/06/20 10:45 11/04/20 10:44 Diltiazem HCl (Cardizem Tab) 120 mg Q8HR GT 08/08/20 22:00 09/07/20 21:59 Docusate Sodium (Colace) 100 mg Q12HR GT 08/08/20 21:00 09/07/20 20:59 08/08/20 20:19 Enoxaparin Sodium (Lovenox) 30 mg DAILY SUBQ 08/02/20 10:00 10/31/20 09:59 08/08/20 08:24 Guaifenesin/ Dextromethorphan (Robitussin DM Syrup) 15 ml Q6H PRN ORAL For Cough 07/31/20 08:30 10/29/20 08:29 08/01/20 08:47 Heparin Sodium/ Sodium Chloride (Heparin 1000 units/500ml Premix) 1,000 unit ONCE PRN IV picc line placement 08/08/20 14:15 08/10/20 14:14 Insulin Aspart (NovoLOG) Q6HR SUBQ 08/06/20 12:00 11/04/20 11:59 08/09/20 12:02 Insulin Detemir (Levemir) 24 units Q12HR SUBQ 08/08/20 09:00 11/04/20 20:59 08/09/20 08:32 Lidocaine HCl (Xylocaine 1% 30ml) 30 ml ONCE PRN INJ picc line placement 08/08/20 14:15 08/10/20 14:14 Methylprednisolone Sodium Succinate (Solu-MEDROL) 40 mg EVERY 12 HOURS IVP 08/04/20 12:30 11/02/20 12:29 08/09/20 08:06 Norepinephrine Bitartrate 4 mg/ Sodium Chloride 250 ml @ 0 mls/hr Q24H PRN IV For hypotension 08/08/20 17:15 08/11/20 17:14 Pantoprazole (Protonix) 40 mg DAILY IVP 08/06/20 10:00 09/05/20 09:59 08/09/20 08:06 Polyethylene Glycol (Miralax) 17 gm BEDTIME ORAL 08/06/20 21:00 09/05/20 20:59 08/08/20 20:19 Assessment/Plan Assessment/Plan 1. Respiratory Failure - intubated 08/01/20 - oxygenating better - Continue PEEP 12; will decrease to 8 - continue 100% Fio2; will attempt to decrease further; currently 65%; failed weaning, back back on 100% FiO2 2. Hyponatremia - per primary MD 3. Hyperglycemia - BG control 5. Pneumonia - abx per ID - on dexamethasone (07/30-) - now on remdesivir per ID (08/01-) 6. COVID-19 rapid negative - COVID-19 PCR positive 7. Elevated inflammatory markers; ferritin, D-Dimer - likely secondary to #5 - On Lovenox Discussed with son Remains totally unresponsive; off all sedation WIll need neurology eval The care for this patient was discussed with my supervising physician Time spent for this case was approximately 31 minutes Slava Hector Aug 09, 2020 14:07
[2020-08-09] MEDS ORDERED: Sodium Polystyrene Sulfonate 15gm Powder NG SCH (14:15)
--- NOTE | 2020-08-09 14:46 | Nephrology Progress Note ---
Assessment/Plan Problem List: (1) ERIKA (acute kidney injury) (2) Shock liver (3) Acute respiratory failure with hypoxia (4) Bilateral pneumonia Assessment Acute renal failure. Most likely due to hypotensive and shock from 8 PM last night to 5 AM this morning. Hyperkalemia. Acute hypoxic respiratory failure. Pneumonia with COVID-19. Elevated transaminase, most likely shock liver. Plan August 09: Labs reviewed. Potassium elevated. Kayexalate given. Serum sodium gradually improving. Continue D5W. Continue per consultants. Continue monitor renal parameters and electrolytes. August 08: Labs reviewed. Renal parameters stable. Abnormal electrolytes noted. Continue current management. Albumin bolus given. Continue to monitor current state August 07: Labs reviewed. Neutra-Phos via NG tube given. Serum sodium and serum potassium lowering. Medication list reviewed. Levemir and Cardizem doses were adjusted by consultants. Continue to monitor renal parameters. August 06: Labs reviewed. Serum potassium 5.2. Serum sodium 152. Will change IV to D5W. Will start with the Levemir 10 mg nightly. August 05: Labs reviewed. Renal parameters improving. LFTs gradually improving. IV changed to half-normal saline. Continue to monitor blood sugar. Continue to monitor renal parameters. Patient full code. Cardizem dose increased. August 04: Renal parameters improving. LFTs remain elevated. Hemodynamically stable. Continue to monitor renal parameters. Continue per consultants. Discussed with CARLOS Greene. August 03: Patient intubated on ventilator. Renal parameters worsening. LFTs elevated. Patient is deteriorating. Will consider dialysis treatment if no reversal of kidney failure. Discussed with CARLOS Alexis. Previously: Albumin bolus Increase IV fluid Kayexalate for high potassium Monitor renal parameters Subjective ROS Limited/Unobtainable: Yes Objective Objective Last 24 Hour Vital Signs Date Time Temp Pulse Resp B/P (MAP) Pulse Ox O2 Delivery O2 Flow Rate FiO2 08/09/20 14:22 101 105/58 08/09/20 12:00 100 08/09/20 12:00 98.3 94 16 120/65 (83) 100 08/09/20 12:00 Mechanical Ventilator 08/09/20 11:30 90 08/09/20 11:00 89 16 117/64 (81) 100 08/09/20 11:00 93 16 100 08/09/20 10:00 93 16 102/54 (70) 99 08/09/20 09:00 88 16 113/61 (78) 100 08/09/20 08:00 Mechanical Ventilator 08/09/20 08:00 100 08/09/20 08:00 97.8 91 16 99/50 (66) 99 08/09/20 07:15 87 08/09/20 07:08 86 16 100 08/09/20 07:00 88 16 105/61 (76) 100 08/09/20 06:08 98.7 08/09/20 06:00 90 16 96/49 (65) 100 08/09/20 06:00 90 96/49 08/09/20 05:30 100.6 91 16 106/54 (71) 100 08/09/20 05:00 100.3 90 16 112/57 (75) 100 08/09/20 04:00 Mechanical Ventilator 08/09/20 04:00 88 08/09/20 04:00 99.9 92 16 97/52 (67) 100 08/09/20 04:00 100 08/09/20 03:00 99.8 86 16 107/54 (71) 100 08/09/20 02:00 85 16 107/54 (71) 100 08/09/20 01:44 86 16 100 08/09/20 01:00 84 16 112/57 (75) 100 08/09/20 00:00 79 08/09/20 00:00 Mechanical Ventilator 08/09/20 00:00 100 08/09/20 00:00 99.0 90 18 91/55 (67) 88 08/08/20 23:00 79 16 113/62 (79) 96 08/08/20 22:00 88 98/55 08/08/20 22:00 80 16 104/55 (71) 95 08/08/20 21:00 78 16 107/53 (71) 94 08/08/20 20:00 69 08/08/20 20:00 98.7 78 16 101/53 (69) 96 08/08/20 20:00 Mechanical Ventilator 08/08/20 19:00 130 16 110/65 (80) 97 08/08/20 18:40 131 16 100 08/08/20 18:00 131 16 84/63 (70) 95 08/08/20 17:30 128 17 93/63 (73) 95 08/08/20 17:15 100 08/08/20 17:00 130 19 84/49 (61) 87 08/08/20 16:30 68 16 102/51 (68) 87 08/08/20 16:00 90 08/08/20 16:00 Mechanical Ventilator 08/08/20 16:00 68 16 99/51 (67) 88 08/08/20 16:00 69 08/08/20 15:40 132 16 100 08/08/20 15:30 69 16 93/50 (64) 88 08/08/20 15:00 75 17 113/63 (80) 91 Intake and Output 08/08/20 08/09/20 19:00 07:00 Intake Total 1415 ml 1720 ml Output Total 820 ml 640 ml Balance 595 ml 1080 ml Free Water 240 ml 50 ml IV Total 755 ml 1200 ml Tube Feeding 420 ml 420 ml Other 50 ml Output Urine Total 820 ml 640 ml # Bowel Movements 1 1 Current Medications Medications (Trade) Dose Ordered Sig/Fabiano Route PRN Reason Start Time Stop Time Status Last Admin Dose Admin Acetaminophen (Tylenol) 650 mg Q4H PRN NG Temp >100.5 08/03/20 04:15 09/02/20 04:14 08/09/20 05:38 Acetaminophen (Tylenol) 650 mg Q4H PRN RECTAL Temp >100.5 08/01/20 20:30 08/31/20 20:29 08/02/20 10:28 Albuterol Sulfate (Proventil MDI) 2 puff Q4H PRN INH Shortness of Breath 07/29/20 22:45 10/27/20 22:44 Ceftriaxone Sodium 1 gm/ Dextrose 55 ml @ 110 mls/hr Q24H IVPB 08/07/20 10:00 08/14/20 09:59 08/09/20 09:59 Cetylpyridinium Chloride (Cepacol) 1 lozg Q2H PRN [place] For Cough 07/30/20 21:00 10/28/20 20:59 08/01/20 08:47 Chlorhexidine Gluconate (Marisela-Hex 2%) 1 applic DAILY@2000 TOPIC 08/08/20 20:00 11/06/20 19:59 08/08/20 20:18 Clonidine HCl (Catapres Tab) 0.1 mg Q2H PRN ORAL SBP > 170mmHg 08/04/20 09:45 11/02/20 09:44 08/07/20 23:20 Dextrose 1,000 ml @ 100 mls/hr Q10H IV 08/06/20 12:15 09/05/20 12:14 08/09/20 09:59 Dextrose (Dextrose 50%) 25 ml Q30M PRN IV Hypoglycemia 08/06/20 10:45 11/04/20 10:44 Dextrose (Dextrose 50%) 50 ml Q30M PRN IV Hypoglycemia 08/06/20 10:45 11/04/20 10:44 Diltiazem HCl (Cardizem Tab) 120 mg Q8HR GT 08/08/20 22:00 09/07/20 21:59 08/09/20 14:22 Docusate Sodium (Colace) 100 mg Q12HR GT 08/08/20 21:00 09/07/20 20:59 08/08/20 20:19 Enoxaparin Sodium (Lovenox) 30 mg DAILY SUBQ 08/02/20 10:00 10/31/20 09:59 08/08/20 08:24 Guaifenesin/ Dextromethorphan (Robitussin DM Syrup) 15 ml Q6H PRN ORAL For Cough 07/31/20 08:30 10/29/20 08:29 08/01/20 08:47 Heparin Sodium/ Sodium Chloride (Heparin 1000 units/500ml Premix) 1,000 unit ONCE PRN IV picc line placement 08/08/20 14:15 08/10/20 14:14 Insulin Aspart (NovoLOG) Q6HR SUBQ 08/06/20 12:00 11/04/20 11:59 08/09/20 12:02 Insulin Detemir (Levemir) 24 units Q12HR SUBQ 08/08/20 09:00 11/04/20 20:59 08/09/20 08:32 Lidocaine HCl (Xylocaine 1% 30ml) 30 ml ONCE PRN INJ picc line placement 08/08/20 14:15 08/10/20 14:14 Methylprednisolone Sodium Succinate (Solu-MEDROL) 40 mg EVERY 12 HOURS IVP 08/04/20 12:30 11/02/20 12:29 08/09/20 08:06 Norepinephrine Bitartrate 4 mg/ Sodium Chloride 250 ml @ 0 mls/hr Q24H PRN IV For hypotension 08/08/20 17:15 08/11/20 17:14 Pantoprazole (Protonix) 40 mg DAILY IVP 08/06/20 10:00 09/05/20 09:59 08/09/20 08:06 Polyethylene Glycol (Miralax) 17 gm BEDTIME ORAL 08/06/20 21:00 09/05/20 20:59 08/08/20 20:19 Sodium Polystyrene Sulfonate (Kayexalate) 30 gm ONCE NG 08/09/20 14:15 08/09/20 16:00 08/09/20 14:22 Laboratory Tests 08/09/20 03:30: White Blood Count 21.5H, Red Blood Count 3.34L, Hemoglobin 10.7L, Hematocrit 33 .8L, Mean Corpuscular Volume 101H, Mean Corpuscular Hemoglobin 32.2H, Mean Corpuscular Hemoglobin Concent 31.8L, Red Cell Distribution Width 12.2, Platelet Count 112L, Mean Platelet Volume 7.9, Neutrophils (%) (Auto) , Lymphocytes (%) (Auto) , Monocytes (%) (Auto) , Eosinophils (%) (Auto) , Basophils (%) (Auto) , Differential Total Cells Counted 100, Neutrophils % (Manual) 94H, Lymphocytes % (Manual) 1L, Monocytes % (Manual) 5, Eosinophils % (Manual) 0, Basophils % (Manual) 0, Band Neutrophils 0, Platelet Estimate DecreasedL, Platelet Morphology Normal, Macrocytosis 1+, Sodium Level 149H, Potassium Level 5.5H, Chloride Level 113H, Carbon Dioxide Level 36H, Anion Gap 0L, Blood Urea Nitrogen 93H, Creatinine 2.6H, Estimat Glomerular Filtration Rate 24.9, Glucose Level 254H, Calcium Level 7.6L, Phosphorus Level 4.7, Total Bilirubin 0.3, Aspartate Amino Transf (AST/SGOT) 44H, Alanine Aminotransferase (ALT/SGPT) 233H, Alkaline Phosphatase 117H, C-Reactive Protein, Quantitative 0.8, Pro-B-Type Natriuretic Peptide 2434H, Total Protein 4.8L, Albumin 2.0L, Globulin 2.8, Albumin/Globulin Ratio 0.7L, Triglycerides Level 227H, Cholesterol Level 113, LDL Cholesterol 65, HDL Cholesterol 21L, Cholesterol/HDL Ratio 5.4H 08/09/20 05:34: POC Whole Blood Glucose 264H 08/09/20 09:39: Arterial Blood pH 7.257L, Arterial Blood Partial Pressure CO2 78.7*H, Arterial Blood Partial Pressure O2 93.1, Arterial Blood HCO3 34.3H, Arterial Blood Oxygen Saturation 96.6, Arterial Blood Base Excess 5.1H, Mehdi Test Positive Height (Feet): 5 Height (Inches): 5.00 Weight (Pounds): 160 General Appearance: no apparent distress EENT: other - Intubated on mechanical ventilation Cardiovascular: tachycardia Respiratory/Chest: decreased breath sounds Abdomen: soft Jared Everett MD Aug 09, 2020 14:46
--- NOTE | 2020-08-09 16:30 | NUR ---
NURSE NOTES: Patient has a fever of 100.6. Tylenol given and cooling measures applied. Will continue to monitor patient.
--- NOTE | 2020-08-09 16:45 | Cardiac Electrophysiology PN ---
Assessment/Plan Assessment/Plan 1. Bradycardia off any sinus-galen or AV-galen blocking agents. Resolved. Tolerating Cardizem Echocardiogram EF 60% 2. Atral fib with RVR. Now off Cardizem drip. On Cardizem 120 tid. Can't use Amiodarone for shock liver that is improving 3. Respiratory failure due to Covid PNA intubated on 100% Fio2 and PEEP 8 4. Acute renal failure with CR 2.5 5. Shock Liver with AST and ALT >1100. Better now 6. Sepsis. White count 21,000 on IV antibiotic per Dr. Antonio. DW RN Subjective Subjective In ICU intubated on 100% Fio2 and PEEP 8. Had atrial fib with RVR and started on Cardizem drip that was DCed EF 60%. On Cardizem 120 tid. Unresponsive to pain Objective Last 24 Hour Vital Signs Date Time Temp Pulse Resp B/P (MAP) Pulse Ox O2 Delivery O2 Flow Rate FiO2 08/09/20 16:00 Mechanical Ventilator 08/09/20 16:00 100 08/09/20 14:22 101 105/58 08/09/20 12:00 100 08/09/20 12:00 98.3 94 16 120/65 (83) 100 08/09/20 12:00 Mechanical Ventilator 08/09/20 11:30 90 08/09/20 11:00 89 16 117/64 (81) 100 08/09/20 11:00 93 16 100 08/09/20 10:00 93 16 102/54 (70) 99 08/09/20 09:00 88 16 113/61 (78) 100 08/09/20 08:00 Mechanical Ventilator 08/09/20 08:00 100 08/09/20 08:00 97.8 91 16 99/50 (66) 99 08/09/20 07:15 87 08/09/20 07:08 86 16 100 08/09/20 07:00 88 16 105/61 (76) 100 08/09/20 06:08 98.7 08/09/20 06:00 90 16 96/49 (65) 100 08/09/20 06:00 90 96/49 08/09/20 05:30 100.6 91 16 106/54 (71) 100 08/09/20 05:00 100.3 90 16 112/57 (75) 100 08/09/20 04:00 Mechanical Ventilator 08/09/20 04:00 88 08/09/20 04:00 99.9 92 16 97/52 (67) 100 08/09/20 04:00 100 08/09/20 03:00 99.8 86 16 107/54 (71) 100 08/09/20 02:00 85 16 107/54 (71) 100 08/09/20 01:44 86 16 100 08/09/20 01:00 84 16 112/57 (75) 100 08/09/20 00:00 79 08/09/20 00:00 Mechanical Ventilator 08/09/20 00:00 100 08/09/20 00:00 99.0 90 18 91/55 (67) 88 08/08/20 23:00 79 16 113/62 (79) 96 08/08/20 22:00 88 98/55 08/08/20 22:00 80 16 104/55 (71) 95 08/08/20 21:00 78 16 107/53 (71) 94 08/08/20 20:00 69 08/08/20 20:00 98.7 78 16 101/53 (69) 96 08/08/20 20:00 Mechanical Ventilator 08/08/20 19:00 130 16 110/65 (80) 97 08/08/20 18:40 131 16 100 08/08/20 18:00 131 16 84/63 (70) 95 08/08/20 17:30 128 17 93/63 (73) 95 08/08/20 17:15 100 08/08/20 17:00 130 19 84/49 (61) 87 Intake and Output 08/08/20 08/09/20 19:00 07:00 Intake Total 1415 ml 1720 ml Output Total 820 ml 640 ml Balance 595 ml 1080 ml Free Water 240 ml 50 ml IV Total 755 ml 1200 ml Tube Feeding 420 ml 420 ml Other 50 ml Output Urine Total 820 ml 640 ml # Bowel Movements 1 1 Laboratory Tests Test 08/09/20 03:30 08/09/20 05:34 08/09/20 09:39 White Blood Count 21.5 K/UL (4.8-10.8) H Red Blood Count 3.34 M/UL (4.70-6.10) L Hemoglobin 10.7 G/DL (14.2-18.0) L Hematocrit 33.8 % (42.0-52.0) L Mean Corpuscular Volume 101 FL (80-99) H Mean Corpuscular Hemoglobin 32.2 PG (27.0-31.0) H Mean Corpuscular Hemoglobin Concent 31.8 G/DL (32.0-36.0) L Red Cell Distribution Width 12.2 % (11.6-14.8) Platelet Count 112 K/UL (150-450) L Mean Platelet Volume 7.9 FL (6.5-10.1) Neutrophils (%) (Auto) % (45.0-75.0) Lymphocytes (%) (Auto) % (20.0-45.0) Monocytes (%) (Auto) % (1.0-10.0) Eosinophils (%) (Auto) % (0.0-3.0) Basophils (%) (Auto) % (0.0-2.0) Differential Total Cells Counted 100 Neutrophils % (Manual) 94 % (45-75) H Lymphocytes % (Manual) 1 % (20-45) L Monocytes % (Manual) 5 % (1-10) Eosinophils % (Manual) 0 % (0-3) Basophils % (Manual) 0 % (0-2) Band Neutrophils 0 % (0-8) Platelet Estimate Decreased L Platelet Morphology Normal Macrocytosis 1+ Sodium Level 149 MMOL/L (136-145) H Potassium Level 5.5 MMOL/L (3.5-5.1) H Chloride Level 113 MMOL/L (98-107) H Carbon Dioxide Level 36 MMOL/L (21-32) H Anion Gap 0 mmol/L (5-15) L Blood Urea Nitrogen 93 mg/dL (7-18) H Creatinine 2.6 MG/DL (0.55-1.30) H Estimat Glomerular Filtration Rate 24.9 mL/min (>60) Glucose Level 254 MG/DL (74-106) H Calcium Level 7.6 MG/DL (8.5-10.1) L Phosphorus Level 4.7 MG/DL (2.5-4.9) Total Bilirubin 0.3 MG/DL (0.2-1.0) Aspartate Amino Transf (AST/SGOT) 44 U/L (15-37) H Alanine Aminotransferase (ALT/SGPT) 233 U/L (12-78) H Alkaline Phosphatase 117 U/L (46-116) H C-Reactive Protein, Quantitative 0.8 mg/dL (0.00-0.90) Pro-B-Type Natriuretic Peptide 2434 pg/mL (0-125) H Total Protein 4.8 G/DL (6.4-8.2) L Albumin 2.0 G/DL (3.4-5.0) L Globulin 2.8 g/dL Albumin/Globulin Ratio 0.7 (1.0-2.7) L Triglycerides Level 227 MG/DL (30-150) H Cholesterol Level 113 MG/DL (< 200) LDL Cholesterol 65 mg/dL (<100) HDL Cholesterol 21 MG/DL (40-60) L Cholesterol/HDL Ratio 5.4 (3.3-4.4) H POC Whole Blood Glucose 264 MG/DL (74-106) H Arterial Blood pH 7.257 (7.350-7.450) Arterial Blood Partial Pressure CO2 78.7 mmHg (35.0-45.0) *H Arterial Blood Partial Pressure O2 93.1 mmHg (75.0-100.0) Arterial Blood HCO3 34.3 mmol/L (22.0-26.0) H Arterial Blood Oxygen Saturation 96.6 % (95-100) Arterial Blood Base Excess 5.1 (-2-2) H Mehdi Test Positive Objective HEAD AND NECK: Showed no JVD. LUNGS: Clear. CARDIOVASCULAR: Shows regular S1 and S2 with no gallop. ABDOMEN: Soft. EXTREMITIES: No pitting edema. Navjot Bains MD Aug 09, 2020 16:45
--- NOTE | 2020-08-09 18:00 | NUR ---
NURSE NOTES: bed bath given. patient tolerated well. no bowel movement. vital signs so far are stable. patient will continue to be monitored.
--- NOTE | 2020-08-09 19:00 | NUR ---
NURSE NOTES: Received patient from CARLOS Hernandez. patient is obtunded. sinus rhythm on the monitor. ETT 7.5, 24 cm at the lip. vent settings AC 16 TV 550 FiO2 100% PEEP 5, tolerating well. OGT in place and tube feeding running Nepro @35ml/hr, no residual, tolerating well. arteaga in place and draining well to gravity. TONA PICC in place running D5W @100ml/hr. bed to lowest position and locked. call light within easy reach, side rails up x2. Will continue plan of care.
--- NOTE | 2020-08-09 19:47 | NUR ---
NURSE HAND-OFF REPORT: Latest Vital Signs: Temperature 98.2 , Pulse 96 , B/P 106 /50 , Respiratory Rate 16 , O2 SAT 100 , Mechanical Ventilator, O2 Flow Rate . Vital Sign Comment: stable EKG Rhythm: Sinus Rhythm Rhythm change?: N Notified?: Moi Guzman MD Response: Latest Orozco Fall Score: 70 Fall Risk: High Risk Safety Measures: Call light Within Reach, Bed Alarm Zone 1, Side Rails Side Rails x2, Bed position Low and Locked. Fall Precautions: Yellow Socks Yellow Gown Door Sign Patient Fall Education Report given to CARLOS Villaseñor.
--- NOTE | 2020-08-09 20:00 | NUR ---
NURSE NOTES: RT came at bedside and titrated oxygen from 100% to 90%. O2 saturation 100%. will monitor closely.
--- NOTE | 2020-08-09 20:28 | General Progress Note ---
Subjective Allergies: Coded Allergies: No Known Allergies (Unverified , 07/29/20) Subjective Above noted d/w RN tolerating OGT feeding - Nephro at 35 no residuals loose dark BM per RN 100% O2, PEEP 8 Objective Last 24 Hour Vital Signs Date Time Temp Pulse Resp B/P (MAP) Pulse Ox O2 Delivery O2 Flow Rate FiO2 08/09/20 20:00 98.2 98 16 105/52 (69) 100 08/09/20 20:00 90 08/09/20 19:10 96 16 100 08/09/20 19:00 98 16 106/50 (68) 100 08/09/20 18:59 98.2 08/09/20 18:00 98 16 116/64 (81) 100 08/09/20 17:00 100 16 113/57 (75) 100 08/09/20 16:16 90 08/09/20 16:00 Mechanical Ventilator 08/09/20 16:00 99.4 90 16 103/56 (72) 100 08/09/20 16:00 100 08/09/20 15:10 12 16 100 08/09/20 15:00 87 16 109/55 (73) 99 08/09/20 14:22 101 105/58 08/09/20 14:00 98 16 105/58 (74) 100 08/09/20 13:00 92 16 113/55 (74) 100 08/09/20 12:00 100 08/09/20 12:00 98.3 94 16 120/65 (83) 100 08/09/20 12:00 Mechanical Ventilator 08/09/20 11:30 90 08/09/20 11:00 89 16 117/64 (81) 100 08/09/20 11:00 93 16 100 08/09/20 10:00 93 16 102/54 (70) 99 08/09/20 09:00 88 16 113/61 (78) 100 08/09/20 08:00 Mechanical Ventilator 08/09/20 08:00 100 08/09/20 08:00 97.8 91 16 99/50 (66) 99 08/09/20 07:15 87 08/09/20 07:08 86 16 100 08/09/20 07:00 88 16 105/61 (76) 100 08/09/20 06:08 98.7 08/09/20 06:00 90 16 96/49 (65) 100 08/09/20 06:00 90 96/49 08/09/20 05:30 100.6 91 16 106/54 (71) 100 08/09/20 05:00 100.3 90 16 112/57 (75) 100 08/09/20 04:00 Mechanical Ventilator 08/09/20 04:00 88 08/09/20 04:00 99.9 92 16 97/52 (67) 100 08/09/20 04:00 100 08/09/20 03:00 99.8 86 16 107/54 (71) 100 08/09/20 02:00 85 16 107/54 (71) 100 08/09/20 01:44 86 16 100 08/09/20 01:00 84 16 112/57 (75) 100 08/09/20 00:00 79 08/09/20 00:00 Mechanical Ventilator 08/09/20 00:00 100 08/09/20 00:00 99.0 90 18 91/55 (67) 88 08/08/20 23:00 79 16 113/62 (79) 96 08/08/20 22:00 88 98/55 08/08/20 22:00 80 16 104/55 (71) 95 08/08/20 21:00 78 16 107/53 (71) 94 Intake and Output 08/08/20 08/09/20 19:00 07:00 Intake Total 1415 ml 1720 ml Output Total 820 ml 640 ml Balance 595 ml 1080 ml Free Water 240 ml 50 ml IV Total 755 ml 1200 ml Tube Feeding 420 ml 420 ml Other 50 ml Output Urine Total 820 ml 640 ml # Bowel Movements 1 1 Laboratory Tests 08/09/20 03:30: White Blood Count 21.5H, Red Blood Count 3.34L, Hemoglobin 10.7L, Hematocrit 33.8L, Mean Corpuscular Volume 101H, Mean Corpuscular Hemoglobin 32.2H, Mean Corpuscular Hemoglobin Concent 31.8L, Red Cell Distribution Width 12.2, Platelet Count 112L, Mean Platelet Volume 7.9, Neutrophils (%) (Auto) , Lymphocytes (%) (Auto) , Monocytes (%) (Auto) , Eosinophils (%) (Auto) , Basophils (%) (Auto) , Differential Total Cells Counted 100, Neutrophils % (Manual) 94H, Lymphocytes % (Manual) 1L, Monocytes % (Manual) 5, Eosinophils % (Manual) 0, Basophils % (Manual) 0, Band Neutrophils 0, Platelet Estimate DecreasedL, Platelet Morphology Normal, Macrocytosis 1+, Sodium Level 149H, Potassium Level 5.5H, Chloride Level 113H, Carbon Dioxide Level 36H, Anion Gap 0L, Blood Urea Nitrogen 93H, Creatinine 2.6H, Estimat Glomerular Filtration Rate 24.9, Glucose Level 254H, Calcium Level 7.6L, Phosphorus Level 4.7, Total Bilirubin 0.3, Aspartate Amino Transf (AST/SGOT) 44H, Alanine Aminotransferase (ALT/SGPT) 233H, Alkaline Phosphatase 117H, C-Reactive Protein, Quantitative 0.8, Pro-B-Type Natriuretic Peptide 2434H, Total Protein 4.8L, Albumin 2.0L, Globulin 2.8, Albumin/Globulin Ratio 0.7L, Triglycerides Level 227H, Cholesterol Level 113, LDL Cholesterol 65, HDL Cholesterol 21L, Cholesterol/HDL Ratio 5.4H 08/09/20 05:34: POC Whole Blood Glucose 264H 08/09/20 09:39: Arterial Blood pH 7.257L, Arterial Blood Partial Pressure CO2 78.7*H, Arterial Blood Partial Pressure O2 93.1, Arterial Blood HCO3 34.3H, Arterial Blood Oxygen Saturation 96.6, Arterial Blood Base Excess 5.1H, Mehdi Test Positive Height (Feet): 5 Height (Inches): 5.00 Weight (Pounds): 160 Objective WD man seen in ICU on vent, intubated OGT exam limited due to COVID Assessment/Plan Status: progressing, unchanged Assessment/Plan: Assessment/Plan Problem List: (1) Hypoxia ICD Codes: R09.02 - Hypoxemia SNOMED: 652536130 (2) Bilateral pneumonia ICD Codes: J18.9 - Pneumonia, unspecified organism SNOMED: 931718825, 132474472 (3) Acute respiratory failure with hypoxia ICD Codes: J96.01 - Acute respiratory failure with hypoxia SNOMED: 40350551, 654519551 (4) Bradycardia ICD Codes: R00.1 - Bradycardia, unspecified SNOMED: 66362123 (5) Malnutrition ICD Codes: E46 - Unspecified protein-calorie malnutrition SNOMED: 08443631 (6) Shock liver ICD Codes: K72.00 - Acute and subacute hepatic failure without coma SNOMED: 707164138 (7) ERIKA (acute kidney injury) ICD Codes: N17.9 - Acute kidney failure, unspecified (8) Dark stools , r/o GIB SNOMED: 5521925, 02228033 Status: unchanged Assessment/Plan: NGTF covid care stool OB pending fu labs abx per ID shock liver>>>fu LFTS>>>improving bowel regimen poor prognosis will fu Bimal Bennett MD Aug 09, 2020 20:28
[2020-08-09] MEDS: Dyna-Hex 2% Top Sol 2oz TOPIC SCH (21:23)
[2020-08-09] MEDS: Miralax 17gm pkt ORAL SCH (21:24)
--- NOTE | 2020-08-09 21:41 | NUR ---
NURSE NOTES: Cardizem help due to BP 100/49. disposed at [facility]. verified by charge nurse.
--- NOTE | 2020-08-09 21:59 | General Progress Note ---
Subjective ROS Limited/Unobtainable: Yes Allergies: Coded Allergies: No Known Allergies (Unverified , 07/29/20) Objective Last 24 Hour Vital Signs Date Time Temp Pulse Resp B/P (MAP) Pulse Ox O2 Delivery O2 Flow Rate FiO2 08/09/20 21:00 96 16 114/56 (75) 100 08/09/20 20:00 98.2 98 16 105/52 (69) 100 08/09/20 20:00 90 08/09/20 20:00 Mechanical Ventilator 08/09/20 19:10 96 16 100 08/09/20 19:00 98 16 106/50 (68) 100 08/09/20 18:59 98.2 08/09/20 18:00 98 16 116/64 (81) 100 08/09/20 17:00 100 16 113/57 (75) 100 08/09/20 16:16 90 08/09/20 16:00 Mechanical Ventilator 08/09/20 16:00 99.4 90 16 103/56 (72) 100 08/09/20 16:00 100 08/09/20 15:10 12 16 100 08/09/20 15:00 87 16 109/55 (73) 99 08/09/20 14:22 101 105/58 08/09/20 14:00 98 16 105/58 (74) 100 08/09/20 13:00 92 16 113/55 (74) 100 08/09/20 12:00 100 08/09/20 12:00 98.3 94 16 120/65 (83) 100 08/09/20 12:00 Mechanical Ventilator 08/09/20 11:30 90 08/09/20 11:00 89 16 117/64 (81) 100 08/09/20 11:00 93 16 100 08/09/20 10:00 93 16 102/54 (70) 99 08/09/20 09:00 88 16 113/61 (78) 100 08/09/20 08:00 Mechanical Ventilator 08/09/20 08:00 100 08/09/20 08:00 97.8 91 16 99/50 (66) 99 08/09/20 07:15 87 08/09/20 07:08 86 16 100 08/09/20 07:00 88 16 105/61 (76) 100 08/09/20 06:08 98.7 08/09/20 06:00 90 16 96/49 (65) 100 08/09/20 06:00 90 96/49 08/09/20 05:30 100.6 91 16 106/54 (71) 100 08/09/20 05:00 100.3 90 16 112/57 (75) 100 08/09/20 04:00 Mechanical Ventilator 08/09/20 04:00 88 08/09/20 04:00 99.9 92 16 97/52 (67) 100 08/09/20 04:00 100 08/09/20 03:00 99.8 86 16 107/54 (71) 100 08/09/20 02:00 85 16 107/54 (71) 100 08/09/20 01:44 86 16 100 08/09/20 01:00 84 16 112/57 (75) 100 08/09/20 00:00 79 08/09/20 00:00 Mechanical Ventilator 08/09/20 00:00 100 08/09/20 00:00 99.0 90 18 91/55 (67) 88 08/08/20 23:00 79 16 113/62 (79) 96 08/08/20 22:00 88 98/55 08/08/20 22:00 80 16 104/55 (71) 95 Intake and Output 08/08/20 08/09/20 19:00 07:00 Intake Total 1415 ml 1720 ml Output Total 820 ml 640 ml Balance 595 ml 1080 ml Free Water 240 ml 50 ml IV Total 755 ml 1200 ml Tube Feeding 420 ml 420 ml Other 50 ml Output Urine Total 820 ml 640 ml # Bowel Movements 1 1 Laboratory Tests 08/09/20 03:30: White Blood Count 21.5H, Red Blood Count 3.34L, Hemoglobin 10.7L, Hematocrit 33.8L, Mean Corpuscular Volume 101H, Mean Corpuscular Hemoglobin 32.2H, Mean Corpuscular Hemoglobin Concent 31.8L, Red Cell Distribution Width 12.2, Platelet Count 112L, Mean Platelet Volume 7.9, Neutrophils (%) (Auto) , Lymphocytes (%) (Auto) , Monocytes (%) (Auto) , Eosinophils (%) (Auto) , Basophils (%) (Auto) , Differential Total Cells Counted 100, Neutrophils % (Manual) 94H, Lymphocytes % (Manual) 1L, Monocytes % (Manual) 5, Eosinophils % (Manual) 0, Basophils % (Manual) 0, Band Neutrophils 0, Platelet Estimate DecreasedL, Platelet Morphology Normal, Macrocytosis 1+, Sodium Level 149H, Potassium Level 5.5H, Chloride Level 113H, Carbon Dioxide Level 36H, Anion Gap 0L, Blood Urea Nitrogen 93H, Creatinine 2.6H, Estimat Glomerular Filtration Rate 24.9, Glucose Level 254H, Calcium Level 7.6L, Phosphorus Level 4.7, Total Bilirubin 0.3, Aspartate Amino Transf (AST/SGOT) 44H, Alanine Aminotransferase (ALT/SGPT) 233H, Alkaline Phosphatase 117H, C-Reactive Protein, Quantitative 0.8, Pro-B-Type Natriuretic Peptide 2434H, Total Protein 4.8L, Albumin 2.0L, Globulin 2.8, Albumin/Globulin Ratio 0.7L, Triglycerides Level 227H, Cholesterol Level 113, LDL Cholesterol 65, HDL Cholesterol 21L, Cholesterol/HDL Ratio 5.4H 08/09/20 05:34: POC Whole Blood Glucose 264H 08/09/20 09:39: Arterial Blood pH 7.257L, Arterial Blood Partial Pressure CO2 78.7*H, Arterial Blood Partial Pressure O2 93.1, Arterial Blood HCO3 34.3H, Arterial Blood Oxygen Saturation 96.6, Arterial Blood Base Excess 5.1H, Mehdi Test Positive Height (Feet): 5 Height (Inches): 5.00 Weight (Pounds): 160 Assessment/Plan Problem List: (1) Bilateral pneumonia ICD Codes: J18.9 - Pneumonia, unspecified organism SNOMED: 458946987, 363741001 (2) Acute respiratory failure with hypoxia ICD Codes: J96.01 - Acute respiratory failure with hypoxia SNOMED: 64374384, 007037505 (3) Malnutrition ICD Codes: E46 - Unspecified protein-calorie malnutrition SNOMED: 66909422 (4) Shock liver ICD Codes: K72.00 - Acute and subacute hepatic failure without coma SNOMED: 872709044 (5) ERIKA (acute kidney injury) ICD Codes: N17.9 - Acute kidney failure, unspecified SNOMED: 5307260, 34026196 (6) Diabetes mellitus out of control ICD Codes: E11.65 - Type 2 diabetes mellitus with hyperglycemia SNOMED: 62713365, 132151908 Status: progressing, unchanged Assessment/Plan: pna check lytes check lft getting supportive care afebrile sepsis malnutrtion resp failure reviewed chart and labs Rey Hannah MD Aug 09, 2020 21:59
--- NOTE | 2020-08-09 23:15 | NUR ---
NURSE NOTES: RT came at bedside and titrated FiO2 from 90% to 80%. O2 saturation 98%. will monitor closely
[2020-08-10] VITALS (25 sets, daily range): BP systolic 96–137; BP diastolic 48–75
[2020-08-10] MEDS: Acetaminophen 650mg/20.3ml NG PRN ×2 (01:25→09:38)
--- NOTE | 2020-08-10 01:25 | NUR ---
NURSE NOTES: noted patient temp is 100.8. tylenol given and cooling measures applied. will reassess.
--- NOTE | 2020-08-10 02:15 | NUR ---
NURSE NOTES: RT came at bedside and titrated FiO2 from 80% to 100%. patient O2 saturation was 84%, now 91%.
--- NOTE | 2020-08-10 04:16 | NUR ---
NURSE NOTES: bed bath performed. no BM. vital signs stable.
[2020-08-10] MEDS: NovoLOG Insulin Flexpen SUBQ SCH ×4 (05:31→18:51)
[2020-08-10] MEDS: dilTIAZem HCl 60mg tab GT SCH ×3 (05:33→21:59)
--- NOTE | 2020-08-10 07:03 | NUR ---
NURSE HAND-OFF REPORT: Latest Vital Signs: Temperature 100.0 , Pulse 97 , B/P 115 /57 , Respiratory Rate 16 , O2 SAT 98 , Mechanical Ventilator, O2 Flow Rate . Vital Sign Comment: stable EKG Rhythm: Sinus Rhythm Rhythm change?: N Notified?: Moi Guzman MD Response: Latest Orozco Fall Score: 70 Fall Risk: High Risk Safety Measures: Call light Within Reach, Bed Alarm Zone 1, Side Rails Side Rails x2, Bed position Low and Locked. Fall Precautions: Yellow Socks Yellow Gown Door Sign Patient Fall Education Report given to CARLOS Hernandez.
[2020-08-10 07:22] LABS: HEMATOCRIT 32.4 % (42.0-52.0); HEMOGLOBIN 10.5 G/DL (14.2-18.0); MEAN CORPUSCULAR VOLUME 101 FL (80-99); PLATELET COUNT 111 K/UL (150-450); RED CELL DISTRIBUTION WIDTH 12.2 % (11.6-14.8)
[2020-08-10 07:28] LABS: WHITE BLOOD COUNT 22.8 K/UL (4.8-10.8)
--- NOTE | 2020-08-10 07:29 | NUR ---
NURSE NOTES: Received report from CARLOS Villaseñor. No grimacing or distress noted. Patient remains orally intubated, ETT 7.5, 24 cm on the lip, with settings of AC 16, TV 550, PEEP 8, FiO2 remaining 100%, tolerating well, saturating above 90s. On OGT, patent, intact, and running nepro t 35 mL/hr, tolerating well, no residual noted. Patient has a L UA PICC line, patent, intact, asymptomatic, runing D5 water at 100 mL/hr. HOB elevated, bed on lowest position, side rails up (x2), locked, call light within reach. Patient will continue to be monitored. Will continue plan of care.
[2020-08-10 07:45] LABS: ALBUMIN 1.7 G/DL (3.4-5.0); ALBUMIN/GLOBULIN RATIO 0.6 (1.0-2.7); BILIRUBIN,TOTAL 0.2 MG/DL (0.2-1.0); CALCIUM 7.8 MG/DL (8.5-10.1); CREATININE 3.5 MG/DL (0.55-1.30); PHOSPHORUS 4.5 MG/DL (2.5-4.9); POTASSIUM 4.7 MMOL/L (3.5-5.1)
[2020-08-10] MEDS: Pantoprazole Inj IVP SCH (08:54)
[2020-08-10] MEDS: Enoxaparin 30mg Inj SUBQ SCH (08:55)
[2020-08-10] MEDS: Solu-MEDROL 40mg Inj IVP SCH ×2 (08:55→20:50)
[2020-08-10] MEDS: Docusate 100mg/10ml Liq GT SCH ×2 (08:55→20:50)
[2020-08-10] MEDS: Levemir Flexpen SUBQ SCH ×2 (09:23→21:07)
--- NOTE | 2020-08-10 09:30 | NUR ---
NURSE NOTES: Medication administered. Tolerated well. No feeding residual. Patient's BS was 312, administered 24 units Levemir. Patient has a fever of 100.7, tylenol given and cooling measures applied. Will continue to monitor.
[2020-08-10] MEDS: cefTRIAXone 1 GM in D5W 55 ML IVPB SCH (09:38)
--- NOTE | 2020-08-10 10:21 | Hematology/Onc Progress Note ---
Assessment/Plan Assessment/Plan Assessment and Recs # Leukocytosis with Acute respiratory failure with hypoxia/covid19++ --> wbc 27-->20-->19-->23-->28 --> ABx ctx --> steriods as well --> pulm and ID # Thrombocytopenia is likely related to covid19 --> plt 83-->118-->183->111 --> trend as needed --> transfuse prn --> hep and hiv neg # Anemia of chronic dsease --> hgb 10 # Respiratory Failure --> intubated 08/01/20 --> oxygenating better --> Continue PEEP 12; now decreased to 5 # AMs --> as per neuro # Hyponatremia --> per primary MD # Hyperglycemia --> BG control # Pneumonia --> abx per ID --> on dexamethasone (07/30-) --> now on remdesivir per ID (08/01-) # Covid19 with Elevated inflammatory markers; ferritin, D-Dimer --> On Lovenox # Dvt ppx lovenox sq Appreciate consultation and dw RN Subjective Allergies: Coded Allergies: No Known Allergies (Unverified , 07/29/20) All Systems: reviewed and negative except above Subjective 08/06 remains altered, on vent, poorly responsive, as per Sophia Polanco, to inform son 08/07 labs noted, on vent, with ogt, meds reviewed, wbc elev, on steriods 08/08 remains on vent, on dex and ogt, no bleeding, on ctx 08/10 is on vent, ogt, no bleeding, meds noted, no night sweats, krysta rn Objective Objective Current Medications Medications (Trade) Dose Ordered Sig/Fabiano Route PRN Reason Start Time Stop Time Status Last Admin Dose Admin Acetaminophen (Tylenol) 650 mg Q4H PRN NG Temp >100.5 08/03/20 04:15 09/02/20 04:14 08/10/20 09:38 Acetaminophen (Tylenol) 650 mg Q4H PRN RECTAL Temp >100.5 08/01/20 20:30 08/31/20 20:29 08/02/20 10:28 Albuterol Sulfate (Proventil MDI) 2 puff Q4H PRN INH Shortness of Breath 07/29/20 22:45 4/5/21 22:44 Ceftriaxone Sodium 1 gm/ Dextrose 55 ml @ 110 mls/hr Q24H IVPB 08/07/20 10:00 08/14/20 09:59 08/10/20 09:38 Cetylpyridinium Chloride (Cepacol) 1 lozg Q2H PRN [place] For Cough 07/30/20 21:00 10/28/20 20:59 08/01/20 08:47 Chlorhexidine Gluconate (Marisela-Hex 2%) 1 applic DAILY@2000 TOPIC 08/08/20 20:00 11/06/20 19:59 08/09/20 21:23 Clonidine HCl (Catapres Tab) 0.1 mg Q2H PRN ORAL SBP > 170mmHg 08/04/20 09:45 11/02/20 09:44 08/07/20 23:20 Dextrose 1,000 ml @ 100 mls/hr Q10H IV 08/06/20 12:15 09/05/20 12:14 08/10/20 05:31 Dextrose (Dextrose 50%) 25 ml Q30M PRN IV Hypoglycemia 08/06/20 10:45 11/04/20 10:44 Dextrose (Dextrose 50%) 50 ml Q30M PRN IV Hypoglycemia 08/06/20 10:45 11/04/20 10:44 Diltiazem HCl (Cardizem Tab) 120 mg Q8HR GT 08/08/20 22:00 09/07/20 21:59 08/09/20 14:22 Docusate Sodium (Colace) 100 mg Q12HR GT 08/08/20 21:00 09/07/20 20:59 08/10/20 08:55 Enoxaparin Sodium (Lovenox) 30 mg DAILY SUBQ 08/02/20 10:00 10/31/20 09:59 08/10/20 08:55 Guaifenesin/ Dextromethorphan (Robitussin DM Syrup) 15 ml Q6H PRN [place] For Cough 07/31/20 08:30 10/29/20 08:29 08/01/20 08:47 Heparin Sodium/ Sodium Chloride (Heparin 1000 units/500ml Premix) 1,000 unit ONCE PRN IV picc line placement 08/08/20 14:15 08/10/20 14:14 Insulin Aspart (NovoLOG) Q6HR SUBQ 08/06/20 12:00 11/04/20 11:59 08/10/20 05:31 Insulin Detemir (Levemir) 24 units Q12HR SUBQ 08/08/20 09:00 11/04/20 20:59 08/10/20 09:23 Lidocaine HCl (Xylocaine 1% 30ml) 30 ml ONCE PRN INJ picc line placement 08/08/20 14:15 08/10/20 14:14 Methylprednisolone Sodium Succinate (Solu-MEDROL) 40 mg EVERY 12 HOURS IVP 08/04/20 12:30 11/02/20 12:29 08/10/20 08:55 Norepinephrine Bitartrate 4 mg/ Sodium Chloride 250 ml @ 0 mls/hr Q24H PRN IV For hypotension 08/08/20 17:15 08/11/20 17:14 Pantoprazole (Protonix) 40 mg DAILY IVP 08/06/20 10:00 09/05/20 09:59 08/10/20 08:54 Polyethylene Glycol (Miralax) 17 gm BEDTIME ORAL 08/06/20 21:00 09/05/20 20:59 08/09/20 21:24 Last 24 Hour Vital Signs Date Time Temp Pulse Resp B/P (MAP) Pulse Ox O2 Delivery O2 Flow Rate FiO2 08/10/20 07:18 97 16 100 08/10/20 07:00 94 16 119/60 (79) 100 08/10/20 06:00 97 16 115/57 (76) 98 08/10/20 05:00 90 17 121/62 (81) 99 08/10/20 04:00 100 08/10/20 04:00 Mechanical Ventilator 08/10/20 04:00 96 08/10/20 04:00 100.0 98 18 110/58 (75) 90 08/10/20 03:00 94 19 116/64 (81) 94 08/10/20 02:13 100 17 100 08/10/20 02:00 103 19 106/58 (74) 85 08/10/20 01:55 101.0 08/10/20 01:00 99 16 118/58 (78) 98 08/10/20 00:00 80 08/10/20 00:00 98 08/10/20 00:00 Mechanical Ventilator 08/10/20 00:00 100.8 98 16 115/59 (77) 97 08/09/20 23:00 94 16 116/60 (78) 100 08/09/20 22:54 92 16 80 08/09/20 22:00 96 16 102/49 (66) 99 08/09/20 21:00 96 16 114/56 (75) 100 08/09/20 20:00 98.2 98 16 105/52 (69) 100 08/09/20 20:00 90 08/09/20 20:00 Mechanical Ventilator 08/09/20 20:00 97 08/09/20 19:10 96 16 100 08/09/20 19:00 98 16 106/50 (68) 100 08/09/20 18:59 98.2 08/09/20 18:00 98 16 116/64 (81) 100 08/09/20 17:00 100 16 113/57 (75) 100 08/09/20 16:16 90 08/09/20 16:00 Mechanical Ventilator 08/09/20 16:00 99.4 90 16 103/56 (72) 100 08/09/20 16:00 100 08/09/20 15:10 12 16 100 08/09/20 15:00 87 16 109/55 (73) 99 08/09/20 14:22 101 105/58 08/09/20 14:00 98 16 105/58 (74) 100 08/09/20 13:00 92 16 113/55 (74) 100 08/09/20 12:00 100 08/09/20 12:00 98.3 94 16 120/65 (83) 100 08/09/20 12:00 Mechanical Ventilator 08/09/20 11:30 90 08/09/20 11:00 89 16 117/64 (81) 100 08/09/20 11:00 93 16 100 08/09/20 10:00 93 16 102/54 (70) 99 08/09/20 09:00 88 16 113/61 (78) 100 08/09/20 08:00 Mechanical Ventilator 08/09/20 08:00 100 08/09/20 08:00 97.8 91 16 99/50 (66) 99 08/09/20 07:15 87 08/09/20 07:08 86 16 100 08/09/20 07:00 88 16 105/61 (76) 100 08/09/20 06:08 98.7 08/09/20 06:00 90 16 96/49 (65) 100 08/09/20 06:00 90 96/49 08/09/20 05:30 100.6 91 16 106/54 (71) 100 08/09/20 05:00 100.3 90 16 112/57 (75) 100 08/09/20 04:00 Mechanical Ventilator 08/09/20 04:00 88 08/09/20 04:00 99.9 92 16 97/52 (67) 100 08/09/20 04:00 100 08/09/20 03:00 99.8 86 16 107/54 (71) 100 08/09/20 02:00 85 16 107/54 (71) 100 08/09/20 01:44 86 16 100 08/09/20 01:00 84 16 112/57 (75) 100 08/09/20 00:00 79 08/09/20 00:00 Mechanical Ventilator 08/09/20 00:00 100 08/09/20 00:00 99.0 90 18 91/55 (67) 88 08/08/20 23:00 79 16 113/62 (79) 96 08/08/20 22:00 88 98/55 08/08/20 22:00 80 16 104/55 (71) 95 08/08/20 21:00 78 16 107/53 (71) 94 08/08/20 20:00 69 08/08/20 20:00 98.7 78 16 101/53 (69) 96 08/08/20 20:00 Mechanical Ventilator 08/08/20 19:00 130 16 110/65 (80) 97 08/08/20 18:40 131 16 100 08/08/20 18:00 131 16 84/63 (70) 95 08/08/20 17:30 128 17 93/63 (73) 95 08/08/20 17:15 100 08/08/20 17:00 130 19 84/49 (61) 87 08/08/20 16:30 68 16 102/51 (68) 87 08/08/20 16:00 90 08/08/20 16:00 Mechanical Ventilator 08/08/20 16:00 68 16 99/51 (67) 88 08/08/20 16:00 69 08/08/20 15:40 132 16 100 08/08/20 15:30 69 16 93/50 (64) 88 08/08/20 15:00 75 17 113/63 (80) 91 08/08/20 14:03 100 08/08/20 14:00 76 16 105/58 (74) 96 08/08/20 13:30 71 16 88/44 (59) 97 08/08/20 13:00 73 16 85/43 (57) 97 08/08/20 12:57 81 101/56 08/08/20 12:30 77 16 101/56 (71) 94 08/08/20 12:00 90 08/08/20 12:00 75 08/08/20 12:00 74 16 105/63 (77) 95 08/08/20 12:00 Mechanical Ventilator 08/08/20 11:46 90 08/08/20 11:30 70 16 107/63 (78) 97 08/08/20 11:00 68 16 107/63 (78) 98 08/08/20 11:00 70 16 100 08/08/20 10:30 67 16 105/64 (78) 98 Intake and Output 08/09/20 08/10/20 19:00 07:00 Intake Total 1725 ml 1618.33 ml Output Total 590 ml 970 ml Balance 1135 ml 648.33 ml Free Water 150 ml 50 ml IV Total 1155 ml 1148.33 ml Tube Feeding 420 ml 420 ml Output Urine Total 590 ml 970 ml Labs Test 08/08/20 04:00 08/08/20 05:53 08/09/20 03:30 08/09/20 05:34 White Blood Count 27.6 K/UL (4.8-10.8) 21.5 K/UL (4.8-10.8) Red Blood Count 4.40 M/UL (4.70-6.10) 3.34 M/UL (4.70-6.10) Hemoglobin 14.0 G/DL (14.2-18.0) 10.7 G/DL (14.2-18.0) Hematocrit 44.2 % (42.0-52.0) 33.8 % (42.0-52.0) Mean Corpuscular Volume 100 FL (80-99) 101 FL (80-99) Mean Corpuscular Hemoglobin 31.8 PG (27.0-31.0) 32.2 PG (27.0-31.0) Mean Corpuscular Hemoglobin Concent 31.7 G/DL (32.0-36.0) 31.8 G/DL (32.0-36.0) Red Cell Distribution Width 12.6 % (11.6-14.8) 12.2 % (11.6-14.8) Platelet Count 183 K/UL (150-450) 112 K/UL (150-450) Mean Platelet Volume 6.4 FL (6.5-10.1) 7.9 FL (6.5-10.1) Neutrophils (%) (Auto) % (45.0-75.0) % (45.0-75.0) Lymphocytes (%) (Auto) % (20.0-45.0) % (20.0-45.0) Monocytes (%) (Auto) % (1.0-10.0) % (1.0-10.0) Eosinophils (%) (Auto) % (0.0-3.0) % (0.0-3.0) Basophils (%) (Auto) % (0.0-2.0) % (0.0-2.0) Differential Total Cells Counted 100 100 Neutrophils % (Manual) 96 % (45-75) 94 % (45-75) Lymphocytes % (Manual) 3 % (20-45) 1 % (20-45) Monocytes % (Manual) 1 % (1-10) 5 % (1-10) Eosinophils % (Manual) 0 % (0-3) 0 % (0-3) Basophils % (Manual) 0 % (0-2) 0 % (0-2) Band Neutrophils 0 % (0-8) 0 % (0-8) Platelet Estimate Adequate Decreased Platelet Morphology Normal Normal Red Blood Cell Morphology Hypochromasia 1+ Macrocytosis 1+ 1+ Sodium Level 150 MMOL/L (136-145) 149 MMOL/L (136-145) Potassium Level 5.1 MMOL/L (3.5-5.1) 5.5 MMOL/L (3.5-5.1) Chloride Level 113 MMOL/L (98-107) 113 MMOL/L (98-107) Carbon Dioxide Level 37 MMOL/L (21-32) 36 MMOL/L (21-32) Anion Gap 0 mmol/L (5-15) 0 mmol/L (5-15) Blood Urea Nitrogen 68 mg/dL (7-18) 93 mg/dL (7-18) Creatinine 2.1 MG/DL (0.55-1.30) 2.6 MG/DL (0.55-1.30) Estimat Glomerular Filtration Rate 31.9 mL/min (>60) 24.9 mL/min (>60) Glucose Level 261 MG/DL (74-106) 254 MG/DL (74-106) Uric Acid 5.6 MG/DL (2.6-7.2) Calcium Level 8.3 MG/DL (8.5-10.1) 7.6 MG/DL (8.5-10.1) Phosphorus Level 4.1 MG/DL (2.5-4.9) 4.7 MG/DL (2.5-4.9) Magnesium Level 3.2 MG/DL (1.8-2.4) Total Bilirubin 0.6 MG/DL (0.2-1.0) 0.3 MG/DL (0.2-1.0) Aspartate Amino Transf (AST/SGOT) 64 U/L (15-37) 44 U/L (15-37) Alanine Aminotransferase (ALT/SGPT) 441 U/L (12-78) 233 U/L (12-78) Alkaline Phosphatase 190 U/L (46-116) 117 U/L (46-116) C-Reactive Protein, Quantitative 0.9 mg/dL (0.00-0.90) 0.8 mg/dL (0.00-0.90) Pro-B-Type Natriuretic Peptide 3357 pg/mL (0-125) 2434 pg/mL (0-125) Total Protein 5.8 G/DL (6.4-8.2) 4.8 G/DL (6.4-8.2) Albumin 2.2 G/DL (3.4-5.0) 2.0 G/DL (3.4-5.0) Globulin 3.6 g/dL 2.8 g/dL Albumin/Globulin Ratio 0.6 (1.0-2.7) 0.7 (1.0-2.7) Amylase Level 72 U/L (25-115) Lipase 352 U/L (73-393) Triglycerides Level 227 MG/DL (30-150) Cholesterol Level 113 MG/DL (< 200) LDL Cholesterol 65 mg/dL (<100) HDL Cholesterol 21 MG/DL (40-60) Cholesterol/HDL Ratio 5.4 (3.3-4.4) POC Whole Blood Glucose 264 MG/DL (74-106) Test 08/09/20 09:39 08/10/20 05:56 08/10/20 08:47 Arterial Blood pH 7.257 (7.350-7.450) 7.263 (7.350-7.450) Arterial Blood Partial Pressure CO2 78.7 mmHg (35.0-45.0) 73.5 mmHg (35.0-45.0) Arterial Blood Partial Pressure O2 93.1 mmHg (75.0-100.0) 83.3 mmHg (75.0-100.0) Arterial Blood HCO3 34.3 mmol/L (22.0-26.0) 32.5 mmol/L (22.0-26.0) Arterial Blood Oxygen Saturation 96.6 % (95-100) 95.9 % (95-100) Arterial Blood Base Excess 5.1 (-2-2) 3.8 (-2-2) Mehdi Test Positive Positive White Blood Count 22.8 K/UL (4.8-10.8) Red Blood Count 3.20 M/UL (4.70-6.10) Hemoglobin 10.5 G/DL (14.2-18.0) Hematocrit 32.4 % (42.0-52.0) Mean Corpuscular Volume 101 FL (80-99) Mean Corpuscular Hemoglobin 33.0 PG (27.0-31.0) Mean Corpuscular Hemoglobin Concent 32.5 G/DL (32.0-36.0) Red Cell Distribution Width 12.2 % (11.6-14.8) Platelet Count 111 K/UL (150-450) Mean Platelet Volume 7.5 FL (6.5-10.1) Neutrophils (%) (Auto) % (45.0-75.0) Lymphocytes (%) (Auto) % (20.0-45.0) Monocytes (%) (Auto) % (1.0-10.0) Eosinophils (%) (Auto) % (0.0-3.0) Basophils (%) (Auto) % (0.0-2.0) Differential Total Cells Counted 100 Neutrophils % (Manual) 95 % (45-75) Lymphocytes % (Manual) 1 % (20-45) Monocytes % (Manual) 4 % (1-10) Eosinophils % (Manual) 0 % (0-3) Basophils % (Manual) 0 % (0-2) Band Neutrophils 0 % (0-8) Platelet Estimate Decreased Platelet Morphology Normal Anisocytosis Macrocytosis 1+ Sodium Level 144 MMOL/L (136-145) Potassium Level 4.7 MMOL/L (3.5-5.1) Chloride Level 109 MMOL/L (98-107) Carbon Dioxide Level 34 MMOL/L (21-32) Anion Gap 1 mmol/L (5-15) Blood Urea Nitrogen 115 mg/dL (7-18) Creatinine 3.5 MG/DL (0.55-1.30) Estimat Glomerular Filtration Rate 17.7 mL/min (>60) Glucose Level 337 MG/DL (74-106) Uric Acid 7.9 MG/DL (2.6-7.2) Calcium Level 7.8 MG/DL (8.5-10.1) Phosphorus Level 4.5 MG/DL (2.5-4.9) Magnesium Level 3.4 MG/DL (1.8-2.4) Total Bilirubin 0.2 MG/DL (0.2-1.0) Aspartate Amino Transf (AST/SGOT) 115 U/L (15-37) Alanine Aminotransferase (ALT/SGPT) 138 U/L (12-78) Alkaline Phosphatase 120 U/L (46-116) C-Reactive Protein, Quantitative 2.8 mg/dL (0.00-0.90) Total Protein 4.7 G/DL (6.4-8.2) Albumin 1.7 G/DL (3.4-5.0) Globulin 3.0 g/dL Albumin/Globulin Ratio 0.6 (1.0-2.7) Height (Feet): 5 Height (Inches): 5.00 Weight (Pounds): 160 Objective Vital Signs Vitals: reviewed, abnormal General Appearance: well appearing, mild distress HEENT: hearing grossly normal, moist mucus membranes Neck: full range of motion, supple Respiratory: ++vent Cardiovascular: normal peripheral pulses, regular rate, rhythm, no murmur Gastrointestinal: non tender, soft, non-distended, no guarding Neurologic: alert, oriented x3, no focal defects Skin: normal color, warm/dry Robin Ornelas MD Aug 10, 2020 10:21
--- NOTE | 2020-08-10 10:39 | NUR ---
NURSE NOTES: Titrated FiO2 from 100% to 90%. RT aware. Patient is saturating 99% so far. Will continue to monitor.
--- NOTE | 2020-08-10 11:24 | Pulmonology Progress Note ---
Subjective ROS Limited/Unobtainable: Yes Interval Events: Intubated 08/01/20 Constitutional: Reports: fever, other - low grade, Hm=331.6 HEENT: Repors: no symptoms Respiratory: Reports: no symptoms Cardiovascular: Reports: no symptoms Gastrointestinal/Abdominal: Reports: no symptoms; Denies: nausea, vomiting, diarrhea Musculoskeletal: Denies: pain Allergies: Coded Allergies: No Known Allergies (Unverified , 07/29/20) All Systems: reviewed and negative except above Objective Last 24 Hour Vital Signs Date Time Temp Pulse Resp B/P (MAP) Pulse Ox O2 Delivery O2 Flow Rate FiO2 08/10/20 11:00 96 16 117/62 (80) 98 08/10/20 10:08 100.0 08/10/20 10:00 101 16 130/64 (86) 100 08/10/20 09:00 94 16 118/60 (79) 100 08/10/20 08:00 100.7 97 16 108/55 (72) 99 08/10/20 08:00 Mechanical Ventilator 08/10/20 08:00 100 08/10/20 07:53 98 08/10/20 07:18 97 16 100 08/10/20 07:00 94 16 119/60 (79) 100 08/10/20 06:00 97 16 115/57 (76) 98 08/10/20 05:00 90 17 121/62 (81) 99 08/10/20 04:00 100 08/10/20 04:00 Mechanical Ventilator 08/10/20 04:00 96 08/10/20 04:00 100.0 98 18 110/58 (75) 90 08/10/20 03:00 94 19 116/64 (81) 94 08/10/20 02:13 100 17 100 08/10/20 02:00 103 19 106/58 (74) 85 08/10/20 01:55 101.0 08/10/20 01:00 99 16 118/58 (78) 98 08/10/20 00:00 80 08/10/20 00:00 98 08/10/20 00:00 Mechanical Ventilator 08/10/20 00:00 100.8 98 16 115/59 (77) 97 08/09/20 23:00 94 16 116/60 (78) 100 08/09/20 22:54 92 16 80 08/09/20 22:00 96 16 102/49 (66) 99 08/09/20 21:00 96 16 114/56 (75) 100 08/09/20 20:00 98.2 98 16 105/52 (69) 100 08/09/20 20:00 90 08/09/20 20:00 Mechanical Ventilator 08/09/20 20:00 97 08/09/20 19:10 96 16 100 08/09/20 19:00 98 16 106/50 (68) 100 08/09/20 18:59 98.2 08/09/20 18:00 98 16 116/64 (81) 100 08/09/20 17:00 100 16 113/57 (75) 100 08/09/20 16:16 90 08/09/20 16:00 Mechanical Ventilator 08/09/20 16:00 99.4 90 16 103/56 (72) 100 08/09/20 16:00 100 08/09/20 15:10 12 16 100 08/09/20 15:00 87 16 109/55 (73) 99 08/09/20 14:22 101 105/58 08/09/20 14:00 98 16 105/58 (74) 100 08/09/20 13:00 92 16 113/55 (74) 100 08/09/20 12:00 100 08/09/20 12:00 98.3 94 16 120/65 (83) 100 08/09/20 12:00 Mechanical Ventilator 08/09/20 11:30 90 Intake and Output 08/09/20 08/10/20 19:00 07:00 Intake Total 1725 ml 1618.33 ml Output Total 590 ml 970 ml Balance 1135 ml 648.33 ml Free Water 150 ml 50 ml IV Total 1155 ml 1148.33 ml Tube Feeding 420 ml 420 ml Output Urine Total 590 ml 970 ml General Appearance: no acute distress HEENT: normocephalic, atraumatic Respiratory: lungs clear Cardiovascular: normal rate, regular rhythm Abdomen: soft, non tender Laboratory Tests 08/10/20 05:56: White Blood Count 22.8*H, Red Blood Count 3.20L, Hemoglobin 10.5L, Hematocrit 32.4L, Mean Corpuscular Volume 101H, Mean Corpuscular Hemoglobin 33.0H, Mean Corpuscular Hemoglobin Concent 32.5, Red Cell Distribution Width 12.2, Platelet Count 111L, Mean Platelet Volume 7.5, Neutrophils (%) (Auto) , Lymphocytes (%) (Auto) , Monocytes (%) (Auto) , Eosinophils (%) (Auto) , Basophils (%) (Auto) , Differential Total Cells Counted 100, Neutrophils % (Manual) 95H, Lymphocytes % (Manual) 1L, Monocytes % (Manual) 4, Eosinophils % (Manual) 0, Basophils % (Manual) 0, Band Neutrophils 0, Platelet Estimate DecreasedL, Platelet Morphology Normal, Anisocytosis , Macrocytosis 1+, Sodium Level 144, Potassium Level 4.7, Chloride Level 109H, Carbon Dioxide Level 34H, Anion Gap 1L, Blood Urea Nitrogen 115H, Creatinine 3.5H, Estimat Glomerular Filtration Rate 17.7, Glucose Level 337H, Uric Acid 7.9H, Calcium Level 7.8L, Phosphorus Level 4.5, Magnesium Level 3.4H, Total Bilirubin 0.2, Aspartate Amino Transf (AST/SGOT) 115H, Alanine Aminotransferase (ALT/SGPT) 138H, Alkaline Phosphatase 120H, C-Reactive Protein, Quantitative 2.8H, Total Protein 4.7L, Albumin 1.7L, Globulin 3.0, Albumin/Globulin Ratio 0.6L 08/10/20 08:47: Arterial Blood pH 7.263L, Arterial Blood Partial Pressure CO2 73.5*H, Arterial Blood Partial Pressure O2 83.3, Arterial Blood HCO3 32.5H, Arterial Blood Oxygen Saturation 95.9, Arterial Blood Base Excess 3.8H, Mehdi Test Positive Current Medications Medications (Trade) Dose Ordered Sig/Fabiano Route PRN Reason Start Time Stop Time Status Last Admin Dose Admin Acetaminophen (Tylenol) 650 mg Q4H PRN NG Temp >100.5 08/03/20 04:15 09/02/20 04:14 08/10/20 09:38 Acetaminophen (Tylenol) 650 mg Q4H PRN RECTAL Temp >100.5 08/01/20 20:30 08/31/20 20:29 08/02/20 10:28 Albuterol Sulfate (Proventil MDI) 2 puff Q4H PRN INH Shortness of Breath 07/29/20 22:45 10/27/20 22:44 Ceftriaxone Sodium 1 gm/ Dextrose 55 ml @ 110 mls/hr Q24H IVPB 08/07/20 10:00 08/14/20 09:59 08/10/20 09:38 Cetylpyridinium Chloride (Cepacol) 1 lozg Q2H PRN [place] For Cough 07/30/20 21:00 10/28/20 20:59 08/01/20 08:47 Chlorhexidine Gluconate (Marisela-Hex 2%) 1 applic DAILY@2000 TOPIC 08/08/20 20:00 11/06/20 19:59 08/09/20 21:23 Clonidine HCl (Catapres Tab) 0.1 mg Q2H PRN ORAL SBP > 170mmHg 08/04/20 09:45 11/02/20 09:44 08/07/20 23:20 Dextrose 1,000 ml @ 100 mls/hr Q10H IV 08/06/20 12:15 09/05/20 12:14 08/10/20 05:31 Dextrose (Dextrose 50%) 25 ml Q30M PRN IV Hypoglycemia 08/06/20 10:45 11/04/20 10:44 Dextrose (Dextrose 50%) 50 ml Q30M PRN IV Hypoglycemia 08/06/20 10:45 11/04/20 10:44 Diltiazem HCl (Cardizem Tab) 120 mg Q8HR GT 08/08/20 22:00 09/07/20 21:59 08/09/20 14:22 Docusate Sodium (Colace) 100 mg Q12HR GT 08/08/20 21:00 09/07/20 20:59 08/10/20 08:55 Enoxaparin Sodium (Lovenox) 30 mg DAILY SUBQ 08/02/20 10:00 10/31/20 09:59 08/10/20 08:55 Guaifenesin/ Dextromethorphan (Robitussin DM Syrup) 15 ml Q6H PRN ORAL For Cough 07/31/20 08:30 10/29/20 08:29 08/01/20 08:47 Heparin Sodium/ Sodium Chloride (Heparin 1000 units/500ml Premix) 1,000 unit ONCE PRN IV picc line placement 08/08/20 14:15 08/10/20 14:14 Insulin Aspart (NovoLOG) Q6HR SUBQ 08/06/20 12:00 11/04/20 11:59 08/10/20 05:31 Insulin Detemir (Levemir) 24 units Q12HR SUBQ 08/08/20 09:00 11/04/20 20:59 08/10/20 09:23 Lidocaine HCl (Xylocaine 1% 30ml) 30 ml ONCE PRN INJ picc line placement 08/08/20 14:15 08/10/20 14:14 Methylprednisolone Sodium Succinate (Solu-MEDROL) 40 mg EVERY 12 HOURS IVP 08/04/20 12:30 11/02/20 12:29 08/10/20 08:55 Norepinephrine Bitartrate 4 mg/ Sodium Chloride 250 ml @ 0 mls/hr Q24H PRN IV For hypotension 08/08/20 17:15 08/17/20 19:00 Pantoprazole (Protonix) 40 mg DAILY IVP 08/06/20 10:00 09/05/20 09:59 08/10/20 08:54 Polyethylene Glycol (Miralax) 17 gm BEDTIME ORAL 08/06/20 21:00 09/05/20 20:59 08/09/20 21:24 Assessment/Plan Assessment/Plan 1. Respiratory Failure - intubated 08/01/20 - oxygenating better - Continue PEEP 12; will decrease to 8 - continue 100% Fio2; will attempt to decrease further; currently 65% 2. Hyponatremia - per primary MD 3. Hyperglycemia - BG control 5. Pneumonia - abx per ID - on dexamethasone (07/30-) - now on remdesivir per ID (08/01-) 6. COVID-19 rapid negative - COVID-19 PCR positive 7. Elevated inflammatory markers; ferritin, D-Dimer - likely secondary to #5 - On Lovenox Discussed with son Remains totally unresponsive; off all sedation WIll need neurology eval Will order head CT Milton Antonio MD Aug 10, 2020 11:24
--- NOTE | 2020-08-10 12:03 | Nephrology Progress Note ---
Assessment/Plan Problem List: (1) ERIKA (acute kidney injury) (2) Shock liver (3) Acute respiratory failure with hypoxia (4) Bilateral pneumonia Assessment Acute renal failure. Most likely due to hypotensive and shock from 8 PM last night to 5 AM this morning. Hyperkalemia. Acute hypoxic respiratory failure. Pneumonia with COVID-19. Elevated transaminase, most likely shock liver. Plan August 10: Lab reviewed. Renal parameters worsening. Patient unresponsive. Remains on ventilator. Remains full code. Due for CT scan of the head. Will plan for dialysis catheter and dialysis should the head CT results are desirable. Discussed with CARLOS Laurent. August 09: Labs reviewed. Potassium elevated. Kayexalate given. Serum sodium gradually improving. Continue D5W. Continue per consultants. Continue monitor renal parameters and electrolytes. August 08: Labs reviewed. Renal parameters stable. Abnormal electrolytes noted. Continue current management. Albumin bolus given. Continue to monitor current state August 07: Labs reviewed. Neutra-Phos via NG tube given. Serum sodium and serum potassium lowering. Medication list reviewed. Levemir and Cardizem doses were adjusted by consultants. Continue to monitor renal parameters. August 06: Labs reviewed. Serum potassium 5.2. Serum sodium 152. Will change IV to D5W. Will start with the Levemir 10 mg nightly. August 05: Labs reviewed. Renal parameters improving. LFTs gradually improving. IV changed to half-normal saline. Continue to monitor blood sugar. Continue to monitor renal parameters. Patient full code. Cardizem dose increased. August 04: Renal parameters improving. LFTs remain elevated. Hemodynamically stable. Continue to monitor renal parameters. Continue per consultants. Discussed with CARLOS Greene. August 03: Patient intubated on ventilator. Renal parameters worsening. LFTs elevated. Patient is deteriorating. Will consider dialysis treatment if no reversal of kidney failure. Discussed with CARLOS Alexis. Previously: Albumin bolus Increase IV fluid Kayexalate for high potassium Monitor renal parameters Subjective ROS Limited/Unobtainable: Yes Objective Objective Last 24 Hour Vital Signs Date Time Temp Pulse Resp B/P (MAP) Pulse Ox O2 Delivery O2 Flow Rate FiO2 08/10/20 11:05 96 16 90 08/10/20 11:00 96 16 117/62 (80) 98 08/10/20 10:08 100.0 08/10/20 10:00 101 16 130/64 (86) 100 08/10/20 09:00 94 16 118/60 (79) 100 08/10/20 08:00 100.7 97 16 108/55 (72) 99 08/10/20 08:00 Mechanical Ventilator 08/10/20 08:00 100 08/10/20 07:53 98 08/10/20 07:18 97 16 100 08/10/20 07:00 94 16 119/60 (79) 100 08/10/20 06:00 97 16 115/57 (76) 98 08/10/20 05:00 90 17 121/62 (81) 99 08/10/20 04:00 100 08/10/20 04:00 Mechanical Ventilator 08/10/20 04:00 96 08/10/20 04:00 100.0 98 18 110/58 (75) 90 08/10/20 03:00 94 19 116/64 (81) 94 08/10/20 02:13 100 17 100 08/10/20 02:00 103 19 106/58 (74) 85 08/10/20 01:55 101.0 08/10/20 01:00 99 16 118/58 (78) 98 08/10/20 00:00 80 08/10/20 00:00 98 08/10/20 00:00 Mechanical Ventilator 08/10/20 00:00 100.8 98 16 115/59 (77) 97 08/09/20 23:00 94 16 116/60 (78) 100 08/09/20 22:54 92 16 80 08/09/20 22:00 96 16 102/49 (66) 99 08/09/20 21:00 96 16 114/56 (75) 100 08/09/20 20:00 98.2 98 16 105/52 (69) 100 08/09/20 20:00 90 08/09/20 20:00 Mechanical Ventilator 08/09/20 20:00 97 08/09/20 19:10 96 16 100 08/09/20 19:00 98 16 106/50 (68) 100 08/09/20 18:59 98.2 08/09/20 18:00 98 16 116/64 (81) 100 08/09/20 17:00 100 16 113/57 (75) 100 08/09/20 16:16 90 08/09/20 16:00 Mechanical Ventilator 08/09/20 16:00 99.4 90 16 103/56 (72) 100 08/09/20 16:00 100 08/09/20 15:10 12 16 100 08/09/20 15:00 87 16 109/55 (73) 99 08/09/20 14:22 101 105/58 08/09/20 14:00 98 16 105/58 (74) 100 08/09/20 13:00 92 16 113/55 (74) 100 Intake and Output 08/09/20 08/10/20 19:00 07:00 Intake Total 1725 ml 1618.33 ml Output Total 590 ml 970 ml Balance 1135 ml 648.33 ml Free Water 150 ml 50 ml IV Total 1155 ml 1148.33 ml Tube Feeding 420 ml 420 ml Output Urine Total 590 ml 970 ml Current Medications Medications (Trade) Dose Ordered Sig/Fabiano Route PRN Reason Start Time Stop Time Status Last Admin Dose Admin Acetaminophen (Tylenol) 650 mg Q4H PRN NG Temp >100.5 08/03/20 04:15 09/02/20 04:14 08/10/20 09:38 Acetaminophen (Tylenol) 650 mg Q4H PRN RECTAL Temp >100.5 08/01/20 20:30 08/31/20 20:29 08/02/20 10:28 Albuterol Sulfate (Proventil MDI) 2 puff Q4H PRN INH Shortness of Breath 07/29/20 22:45 10/27/20 22:44 Ceftriaxone Sodium 1 gm/ Dextrose 55 ml @ 110 mls/hr Q24H IVPB 08/07/20 10:00 08/14/20 09:59 08/10/20 09:38 Cetylpyridinium Chloride (Cepacol) 1 lozg Q2H PRN [place] For Cough 07/30/20 21:00 10/28/20 20:59 08/01/20 08:47 Chlorhexidine Gluconate (Marisela-Hex 2%) 1 applic DAILY@2000 TOPIC 08/08/20 20:00 11/06/20 19:59 08/09/20 21:23 Clonidine HCl (Catapres Tab) 0.1 mg Q2H PRN ORAL SBP > 170mmHg 08/04/20 09:45 11/02/20 09:44 08/07/20 23:20 Dextrose 1,000 ml @ 100 mls/hr Q10H IV 08/06/20 12:15 09/05/20 12:14 08/10/20 05:31 Dextrose (Dextrose 50%) 25 ml Q30M PRN IV Hypoglycemia 08/06/20 10:45 11/04/20 10:44 Dextrose (Dextrose 50%) 50 ml Q30M PRN IV Hypoglycemia 08/06/20 10:45 11/04/20 10:44 Diltiazem HCl (Cardizem Tab) 120 mg Q8HR GT 08/08/20 22:00 09/07/20 21:59 08/09/20 14:22 Docusate Sodium (Colace) 100 mg Q12HR GT 08/08/20 21:00 09/07/20 20:59 08/10/20 08:55 Enoxaparin Sodium (Lovenox) 30 mg DAILY SUBQ 08/02/20 10:00 10/31/20 09:59 08/10/20 08:55 Guaifenesin/ Dextromethorphan (Robitussin DM Syrup) 15 ml Q6H PRN ORAL For Cough 07/31/20 08:30 10/29/20 08:29 08/01/20 08:47 Heparin Sodium/ Sodium Chloride (Heparin 1000 units/500ml Premix) 1,000 unit ONCE PRN IV picc line placement 08/08/20 14:15 08/10/20 14:14 Insulin Aspart (NovoLOG) Q6HR SUBQ 08/06/20 12:00 11/04/20 11:59 08/10/20 05:31 Insulin Detemir (Levemir) 24 units Q12HR SUBQ 08/08/20 09:00 11/04/20 20:59 08/10/20 09:23 Lidocaine HCl (Xylocaine 1% 30ml) 30 ml ONCE PRN INJ picc line placement 08/08/20 14:15 08/10/20 14:14 Methylprednisolone Sodium Succinate (Solu-MEDROL) 40 mg EVERY 12 HOURS IVP 08/04/20 12:30 11/02/20 12:29 08/10/20 08:55 Norepinephrine Bitartrate 4 mg/ Sodium Chloride 250 ml @ 0 mls/hr Q24H PRN IV For hypotension 08/08/20 17:15 08/17/20 19:00 Pantoprazole (Protonix) 40 mg DAILY IVP 08/06/20 10:00 09/05/20 09:59 08/10/20 08:54 Polyethylene Glycol (Miralax) 17 gm BEDTIME ORAL 08/06/20 21:00 09/05/20 20:59 08/09/20 21:24 Laboratory Tests 08/10/20 05:56: White Blood Count 22.8*H, Red Blood Count 3.20L, Hemoglobin 10.5L, Hematocrit 32.4L, Mean Corpuscular Volume 101H, Mean Corpuscular Hemoglobin 33.0H, Mean Corpuscular Hemoglobin Concent 32.5, Red Cell Distribution Width 12.2, Platelet Count 111L, Mean Platelet Volume 7.5, Neutrophils (%) (Auto) , Lymphocytes (%) (Auto) , Monocytes (%) (Auto) , Eosinophils (%) (Auto) , Basophils (%) (Auto) , Differential Total Cells Counted 100, Neutrophils % (Manual) 95H, Lymphocytes % (Manual) 1L, Monocytes % (Manual) 4, Eosinophils % (Manual) 0, Basophils % ( Manual) 0, Band Neutrophils 0, Platelet Estimate DecreasedL, Platelet Morphology Normal, Anisocytosis , Macrocytosis 1+, Sodium Level 144, Potassium Level 4.7, Chloride Level 109H, Carbon Dioxide Level 34H, Anion Gap 1L, Blood Urea Nitrogen 115H, Creatinine 3.5H, Estimat Glomerular Filtration Rate 17.7, Glucose Level 337H, Uric Acid 7.9H, Calcium Level 7.8L, Phosphorus Level 4.5, Magnesium Level 3.4H, Total Bilirubin 0.2, Aspartate Amino Transf (AST/SGOT) 115H, Alanine Aminotransferase (ALT/SGPT) 138H, Alkaline Phosphatase 120H, C-Reactive Protein, Quantitative 2.8H, Total Protein 4.7L, Albumin 1.7L, Globulin 3.0, Albumin/Globulin Ratio 0.6L 08/10/20 08:47: Arterial Blood pH 7.263L, Arterial Blood Partial Pressure CO2 73.5*H, Arterial Blood Partial Pressure O2 83.3, Arterial Blood HCO3 32.5H, Arterial Blood Oxygen Saturation 95.9, Arterial Blood Base Excess 3.8H, Mehdi Test Positive Height (Feet): 5 Height (Inches): 5.00 Weight (Pounds): 160 General Appearance: no apparent distress, other - Nonresponsive Cardiovascular: tachycardia Respiratory/Chest: decreased breath sounds Abdomen: distended Neurologic: other - Unresponsive Jared Everett MD Aug 10, 2020 12:03
--- NOTE | 2020-08-10 12:10 | General Progress Note ---
Subjective ROS Limited/Unobtainable: Yes Allergies: Coded Allergies: No Known Allergies (Unverified , 07/29/20) Subjective events note interval notes reviewed glucose improved but still elevated Item Value Date Time Bedside Blood Glucose 284 mg/dl H 08/10/20 1203 Bedside Blood Glucose 312 mg/dl H 08/10/20 0923 Bedside Blood Glucose 333 mg/dl H 08/10/20 0600 Bedside Blood Glucose 283 mg/dl H 08/10/20 0000 Bedside Blood Glucose 238 mg/dl H 08/09/20 2125 Bedside Blood Glucose 285 mg/dl H 08/09/20 1832 Objective Last 24 Hour Vital Signs Date Time Temp Pulse Resp B/P (MAP) Pulse Ox O2 Delivery O2 Flow Rate FiO2 08/10/20 11:05 96 16 90 08/10/20 11:00 96 16 117/62 (80) 98 08/10/20 10:08 100.0 08/10/20 10:00 101 16 130/64 (86) 100 08/10/20 09:00 94 16 118/60 (79) 100 08/10/20 08:00 100.7 97 16 108/55 (72) 99 08/10/20 08:00 Mechanical Ventilator 08/10/20 08:00 100 08/10/20 07:53 98 08/10/20 07:18 97 16 100 08/10/20 07:00 94 16 119/60 (79) 100 08/10/20 06:00 97 16 115/57 (76) 98 08/10/20 05:00 90 17 121/62 (81) 99 08/10/20 04:00 100 08/10/20 04:00 Mechanical Ventilator 08/10/20 04:00 96 08/10/20 04:00 100.0 98 18 110/58 (75) 90 08/10/20 03:00 94 19 116/64 (81) 94 08/10/20 02:13 100 17 100 08/10/20 02:00 103 19 106/58 (74) 85 08/10/20 01:55 101.0 08/10/20 01:00 99 16 118/58 (78) 98 08/10/20 00:00 80 08/10/20 00:00 98 08/10/20 00:00 Mechanical Ventilator 08/10/20 00:00 100.8 98 16 115/59 (77) 97 08/09/20 23:00 94 16 116/60 (78) 100 08/09/20 22:54 92 16 80 08/09/20 22:00 96 16 102/49 (66) 99 08/09/20 21:00 96 16 114/56 (75) 100 08/09/20 20:00 98.2 98 16 105/52 (69) 100 08/09/20 20:00 90 08/09/20 20:00 Mechanical Ventilator 08/09/20 20:00 97 08/09/20 19:10 96 16 100 08/09/20 19:00 98 16 106/50 (68) 100 08/09/20 18:59 98.2 08/09/20 18:00 98 16 116/64 (81) 100 08/09/20 17:00 100 16 113/57 (75) 100 08/09/20 16:16 90 08/09/20 16:00 Mechanical Ventilator 08/09/20 16:00 99.4 90 16 103/56 (72) 100 08/09/20 16:00 100 08/09/20 15:10 12 16 100 08/09/20 15:00 87 16 109/55 (73) 99 08/09/20 14:22 101 105/58 08/09/20 14:00 98 16 105/58 (74) 100 08/09/20 13:00 92 16 113/55 (74) 100 Intake and Output 08/09/20 08/10/20 19:00 07:00 Intake Total 1725 ml 1618.33 ml Output Total 590 ml 970 ml Balance 1135 ml 648.33 ml Free Water 150 ml 50 ml IV Total 1155 ml 1148.33 ml Tube Feeding 420 ml 420 ml Output Urine Total 590 ml 970 ml Laboratory Tests 08/10/20 05:56: White Blood Count 22.8*H, Red Blood Count 3.20L, Hemoglobin 10.5L, Hematocrit 32.4L, Mean Corpuscular Volume 101H, Mean Corpuscular Hemoglobin 33.0H, Mean Corpuscular Hemoglobin Concent 32.5, Red Cell Distribution Width 12.2, Platelet Count 111L, Mean Platelet Volume 7.5, Neutrophils (%) (Auto) , Lymphocytes (%) (Auto) , Monocytes (%) (Auto) , Eosinophils (%) (Auto) , Basophils (%) (Auto) , Differential Total Cells Counted 100, Neutrophils % (Manual) 95H, Lymphocytes % (Manual) 1L, Monocytes % (Manual) 4, Eosinophils % (Manual) 0, Basophils % (Manual) 0, Band Neutrophils 0, Platelet Estimate DecreasedL, Platelet Morphology Normal, Anisocytosis , Macrocytosis 1+, Sodium Level 144, Potassium Level 4.7, Chloride Level 109H, Carbon Dioxide Level 34H, Anion Gap 1L, Blood Urea Nitrogen 115H, Creatinine 3.5H, Estimat Glomerular Filtration Rate 17.7, Glucose Level 337H, Uric Acid 7.9H, Calcium Level 7.8L, Phosphorus Level 4.5, Magnesium Level 3.4H, Total Bilirubin 0.2, Aspartate Amino Transf (AST/SGOT) 115H, Alanine Aminotransferase (ALT/SGPT) 138H, Alkaline Phosphatase 120H, C- Reactive Protein, Quantitative 2.8H, Total Protein 4.7L, Albumin 1.7L, Globulin 3.0, Albumin/Globulin Ratio 0.6L 08/10/20 08:47: Arterial Blood pH 7.263L, Arterial Blood Partial Pressure CO2 73.5*H, Arterial Blood Partial Pressure O2 83.3, Arterial Blood HCO3 32.5H, Arterial Blood Oxygen Saturation 95.9, Arterial Blood Base Excess 3.8H, Mehdi Test Positive Height (Feet): 5 Height (Inches): 5.00 Weight (Pounds): 160 Objective Current Medications Medications (Trade) Dose Ordered Sig/Fabiano Route PRN Reason Start Time Stop Time Status Last Admin Dose Admin Acetaminophen (Tylenol) 650 mg Q4H PRN NG Temp >100.5 08/03/20 04:15 09/02/20 04:14 08/10/20 09:38 Acetaminophen (Tylenol) 650 mg Q4H PRN RECTAL Temp >100.5 08/01/20 20:30 08/31/20 20:29 08/02/20 10:28 Albuterol Sulfate (Proventil MDI) 2 puff Q4H PRN INH Shortness of Breath 07/29/20 22:45 10/27/20 22:44 Ceftriaxone Sodium 1 gm/ Dextrose 55 ml @ 110 mls/hr Q24H IVPB 08/07/20 10:00 08/14/20 09:59 08/10/20 09:38 Cetylpyridinium Chloride (Cepacol) 1 lozg Q2H PRN [place] For Cough 07/30/20 21:00 10/28/20 20:59 08/01/20 08:47 Chlorhexidine Gluconate (Marisela-Hex 2%) 1 applic DAILY@2000 TOPIC 08/08/20 20:00 11/06/20 19:59 08/09/20 21:23 Clonidine HCl (Catapres Tab) 0.1 mg Q2H PRN ORAL SBP > 170mmHg 08/04/20 09:45 11/02/20 09:44 08/07/20 23:20 Dextrose 1,000 ml @ 100 mls/hr Q10H IV 08/06/20 12:15 09/05/20 12:14 08/10/20 05:31 Dextrose (Dextrose 50%) 25 ml Q30M PRN IV Hypoglycemia 08/06/20 10:45 11/04/20 10:44 Dextrose (Dextrose 50%) 50 ml Q30M PRN IV Hypoglycemia 08/06/20 10:45 11/04/20 10:44 Diltiazem HCl (Cardizem Tab) 120 mg Q8HR GT 08/08/20 22:00 09/07/20 21:59 08/09/20 14:22 Docusate Sodium (Colace) 100 mg Q12HR GT 08/08/20 21:00 09/07/20 20:59 08/10/20 08:55 Enoxaparin Sodium (Lovenox) 30 mg DAILY SUBQ 08/02/20 10:00 10/31/20 09:59 08/10/20 08:55 Guaifenesin/ Dextromethorphan (Robitussin DM Syrup) 15 ml Q6H PRN ORAL For Cough 07/31/20 08:30 10/29/20 08:29 08/01/20 08:47 Heparin Sodium/ Sodium Chloride (Heparin 1000 units/500ml Premix) 1,000 unit ONCE PRN IV picc line placement 08/08/20 14:15 08/10/20 14:14 Insulin Aspart (NovoLOG) Q6HR SUBQ 08/06/20 12:00 11/04/20 11:59 08/10/20 05:31 Insulin Detemir (Levemir) 24 units Q12HR SUBQ 08/08/20 09:00 11/04/20 20:59 08/10/20 09:23 Lidocaine HCl (Xylocaine 1% 30ml) 30 ml ONCE PRN INJ picc line placement 08/08/20 14:15 08/10/20 14:14 Methylprednisolone Sodium Succinate (Solu-MEDROL) 40 mg EVERY 12 HOURS IVP 08/04/20 12:30 11/02/20 12:29 08/10/20 08:55 Norepinephrine Bitartrate 4 mg/ Sodium Chloride 250 ml @ 0 mls/hr Q24H PRN IV For hypotension 08/08/20 17:15 08/17/20 19:00 Pantoprazole (Protonix) 40 mg DAILY IVP 08/06/20 10:00 09/05/20 09:59 08/10/20 08:54 Polyethylene Glycol (Miralax) 17 gm BEDTIME ORAL 08/06/20 21:00 09/05/20 20:59 08/09/20 21:24 Assessment/Plan Problem List: (1) Diabetes mellitus out of control ICD Codes: E11.65 - Type 2 diabetes mellitus with hyperglycemia SNOMED: 27139485, 287293188 (2) Acute respiratory failure with hypoxia ICD Codes: J96.01 - Acute respiratory failure with hypoxia SNOMED: 29834859, 365000806 (3) Bilateral pneumonia ICD Codes: J18.9 - Pneumonia, unspecified organism SNOMED: 447129260, 371598828 Status: progressing, unchanged Assessment/Plan: increase Levemir to 30 units bid add Novolog 6 units every 6 hours continue Novolog sliding scale every 6 hours Jeffrey Sinclair MD Aug 10, 2020 12:10
--- NOTE | 2020-08-10 12:58 | NUR ---
NURSE NOTES: Patient was transported to CT to do a CT scan, but was not successfully done because patient needed to be in ventilator and was desaturating (70s), regardless of the bagging. Patient is back on unit. Will continue to be monitored. Addendum: 08/10/20 at 1343 by David Terrell RN FiO2 is back to 100%
--- NOTE | 2020-08-10 13:55 | Surgery Progress Note ---
Surgery Progress Note Subjective Additional Comments ill appearing no acute events Objective Last 24 Hour Vital Signs Date Time Temp Pulse Resp B/P (MAP) Pulse Ox O2 Delivery O2 Flow Rate FiO2 08/10/20 11:05 96 16 90 08/10/20 11:00 96 16 117/62 (80) 98 08/10/20 10:08 100.0 08/10/20 10:00 101 16 130/64 (86) 100 08/10/20 09:00 94 16 118/60 (79) 100 08/10/20 08:00 100.7 97 16 108/55 (72) 99 08/10/20 08:00 Mechanical Ventilator 08/10/20 08:00 100 08/10/20 07:53 98 08/10/20 07:18 97 16 100 08/10/20 07:00 94 16 119/60 (79) 100 08/10/20 06:00 97 16 115/57 (76) 98 08/10/20 05:00 90 17 121/62 (81) 99 08/10/20 04:00 100 08/10/20 04:00 Mechanical Ventilator 08/10/20 04:00 96 08/10/20 04:00 100.0 98 18 110/58 (75) 90 08/10/20 03:00 94 19 116/64 (81) 94 08/10/20 02:13 100 17 100 08/10/20 02:00 103 19 106/58 (74) 85 08/10/20 01:55 101.0 08/10/20 01:00 99 16 118/58 (78) 98 08/10/20 00:00 80 08/10/20 00:00 98 08/10/20 00:00 Mechanical Ventilator 08/10/20 00:00 100.8 98 16 115/59 (77) 97 08/09/20 23:00 94 16 116/60 (78) 100 08/09/20 22:54 92 16 80 08/09/20 22:00 96 16 102/49 (66) 99 08/09/20 21:00 96 16 114/56 (75) 100 08/09/20 20:00 98.2 98 16 105/52 (69) 100 08/09/20 20:00 90 08/09/20 20:00 Mechanical Ventilator 08/09/20 20:00 97 08/09/20 19:10 96 16 100 08/09/20 19:00 98 16 106/50 (68) 100 08/09/20 18:59 98.2 08/09/20 18:00 98 16 116/64 (81) 100 08/09/20 17:00 100 16 113/57 (75) 100 08/09/20 16:16 90 08/09/20 16:00 Mechanical Ventilator 08/09/20 16:00 99.4 90 16 103/56 (72) 100 08/09/20 16:00 100 08/09/20 15:10 12 16 100 08/09/20 15:00 87 16 109/55 (73) 99 08/09/20 14:22 101 105/58 08/09/20 14:00 98 16 105/58 (74) 100 I&O Intake and Output 08/09/20 08/10/20 19:00 07:00 Intake Total 1725 ml 1618.33 ml Output Total 590 ml 970 ml Balance 1135 ml 648.33 ml Free Water 150 ml 50 ml IV Total 1155 ml 1148.33 ml Tube Feeding 420 ml 420 ml Output Urine Total 590 ml 970 ml Dressing: saturated Cardiovascular: RSR Respiratory: decreased breath sounds Abdomen: soft, non-tender, present bowel sounds Extremities: no cyanosis Laboratory Tests Test 08/10/20 05:56 08/10/20 08:47 White Blood Count 22.8 K/UL (4.8-10.8) *H Red Blood Count 3.20 M/UL (4.70-6.10) L Hemoglobin 10.5 G/DL (14.2-18.0) L Hematocrit 32.4 % (42.0-52.0) L Mean Corpuscular Volume 101 FL (80-99) H Mean Corpuscular Hemoglobin 33.0 PG (27.0-31.0) H Mean Corpuscular Hemoglobin Concent 32.5 G/DL (32.0-36.0) Red Cell Distribution Width 12.2 % (11.6-14.8) Platelet Count 111 K/UL (150-450) L Mean Platelet Volume 7.5 FL (6.5-10.1) Neutrophils (%) (Auto) % (45.0-75.0) Lymphocytes (%) (Auto) % (20.0-45.0) Monocytes (%) (Auto) % (1.0-10.0) Eosinophils (%) (Auto) % (0.0-3.0) Basophils (%) (Auto) % (0.0-2.0) Differential Total Cells Counted 100 Neutrophils % (Manual) 95 % (45-75) H Lymphocytes % (Manual) 1 % (20-45) L Monocytes % (Manual) 4 % (1-10) Eosinophils % (Manual) 0 % (0-3) Basophils % (Manual) 0 % (0-2) Band Neutrophils 0 % (0-8) Platelet Estimate Decreased L Platelet Morphology Normal Anisocytosis Macrocytosis 1+ Sodium Level 144 MMOL/L (136-145) Potassium Level 4.7 MMOL/L (3.5-5.1) Chloride Level 109 MMOL/L (98-107) H Carbon Dioxide Level 34 MMOL/L (21-32) H Anion Gap 1 mmol/L (5-15) L Blood Urea Nitrogen 115 mg/dL (7-18) H Creatinine 3.5 MG/DL (0.55-1.30) H Estimat Glomerular Filtration Rate 17.7 mL/min (>60) Glucose Level 337 MG/DL (74-106) H Uric Acid 7.9 MG/DL (2.6-7.2) H Calcium Level 7.8 MG/DL (8.5-10.1) L Phosphorus Level 4.5 MG/DL (2.5-4.9) Magnesium Level 3.4 MG/DL (1.8-2.4) H Total Bilirubin 0.2 MG/DL (0.2-1.0) Aspartate Amino Transf (AST/SGOT) 115 U/L (15-37) H Alanine Aminotransferase (ALT/SGPT) 138 U/L (12-78) H Alkaline Phosphatase 120 U/L (46-116) H C-Reactive Protein, Quantitative 2.8 mg/dL (0.00-0.90) H Total Protein 4.7 G/DL (6.4-8.2) L Albumin 1.7 G/DL (3.4-5.0) L Globulin 3.0 g/dL Albumin/Globulin Ratio 0.6 (1.0-2.7) L Arterial Blood pH 7.263 (7.350-7.450) Arterial Blood Partial Pressure CO2 73.5 mmHg (35.0-45.0) *H Arterial Blood Partial Pressure O2 83.3 mmHg (75.0-100.0) Arterial Blood HCO3 32.5 mmol/L (22.0-26.0) H Arterial Blood Oxygen Saturation 95.9 % (95-100) Arterial Blood Base Excess 3.8 (-2-2) H Mehdi Test Positive Plan Problems: (1) Hypoxia (2) Bilateral pneumonia (3) Acute respiratory failure with hypoxia Assessment & Plan: ards covid negative as per pulm id input appreciated abd pain likely cramping indigestion from ill ness ppi ordered okay for diet monitor intake am labs will follow with exam and recs acute decline intubated in ICU on vent liver insufficiency acute hepatic in sufficiency renal insufficiency no acute surgical intervention needs resuscitation meds reviewed (4) Bradycardia (5) Malnutrition Assessment & Plan: DAILY ESTIMATED NEEDS: Needs based on [facility] care 64.5kg abw 22-28 kcals/kg [id number] total kcals 1.2-2 g protein/kg 77-129 g total protein 25-30 mL/kg 4467-5312 total fluid mLs NUTRITION DIAGNOSIS: Altered nutrition related lab values related to clinical status as evidenced by elev LD(665), elev WBC(trending down 17.7), elev BG(132-176), elevated lytes(K, phos, mg), elev renal labs ([id number], creat 3.2), elev LFT's ENTERAL NUTRITION RECOMMENDATIONS: As medically able, rec non oral feeds: NEPRO @35ml/hr x24 hrs to provide 840ml, 1512 kcal, 68g pro, 611ml free H2O - With hemodynamic stability, rec OGt feeds to meet est needs. - Start Nepro @15ml/hr for 6 hrs, advance as tolerated 10ml/hr q4-6 hrs to goal - Flush per . HOB over 30 degrees - When tolerating TF at goal, add Prosource 1 pack daily to better meet est pro needs. ADDITIONAL RECOMMENDATIONS: 1) recalibrate bed scale wt for accurate CBW 2) Monitor BG, need for NISS 3) TF recs as above when stable for feeds . (6) Shock liver Assessment & Plan: worsening lft's likely hydration resuscitation trend labs improving (7) ERIKA (acute kidney injury) Benyamini,Vern Aug 10, 2020 13:55
--- NOTE | 2020-08-10 14:00 | NUR ---
NURSE NOTES: Diltiazem is on hold for this patient. Patient has been sinus rhythm. Will double check on Doctor abt dosage and then will administer depending on what the Doctor says.
--- NOTE | 2020-08-10 18:45 | NUR ---
NURSE NOTES: Sponge bath given. Patient tolerated well. Had a bowel movement, moderate amount. BS taken (304), will administer insulin as ordered.
--- NOTE | 2020-08-10 19:00 | NUR ---
NURSE NOTES: Cardizem non administered because blood pressure was borderline 100s (SBP) and HR was normal. Will update upcoming nurse.
--- NOTE | 2020-08-10 19:33 | NUR ---
NURSE HAND-OFF REPORT: Latest Vital Signs: Temperature 100.1 , Pulse 105 , B/P 122 /66 , Respiratory Rate 17 , O2 SAT 98 , Mechanical Ventilator, O2 Flow Rate . Vital Sign Comment: stable EKG Rhythm: Sinus Rhythm Rhythm change?: N Notified?: Moi Guzman MD Response: Latest Orozco Fall Score: 70 Fall Risk: High Risk Safety Measures: Call light Within Reach, Bed Alarm Zone 1, Side Rails Side Rails x2, Bed position Low and Locked. Fall Precautions: Yellow Socks Yellow Gown Door Sign Patient Fall Education Report given to CARLOS Cowart.
--- NOTE | 2020-08-10 19:45 | NUR ---
NURSE NOTES: PATIENT OBTUNDED, ON ETT TO VENT, O2 SATURATION 97% ON VENT AC MODE, HR 100'S/MIN ST, OGT INTACT AND PATENT, ONGOING NEPRO AT 35ML/HR, NO RESIDUE NOTED, KEPT HOB 30 DEGREES AND ASPIRATION PRECAUTION, ABDOMEN DISTENDED, NO BM STATUS, F/C INTACT AND PATENT, YELLOW URINE OUTED, PICC LINE TO LEFT UPPER ARM, INTACT, ONGOING IV FLUID D5%W AT 100ML/HR STATUS, MADE LOWER BED POSITION, ON BED ALARM AND LOCKED, WILL CONTINUE TO MONITOR.
[2020-08-10] MEDS: Dyna-Hex 2% Top Sol 2oz TOPIC SCH (19:50)
--- NOTE | 2020-08-10 20:38 | NUR ---
NURSE NOTES: LE: CALLED PT'S DAUGHTER (AYDE LEW) THAT GOT CONSENT FOR NONTUNNELED DIALYSIS CATHETER, VERIFIED 2 NURSES.
[2020-08-10] MEDS: Miralax 17gm pkt ORAL SCH (20:50)
--- NOTE | 2020-08-10 21:00 | NUR ---
NURSE NOTES: SEEN THE PATIENT BY DR. SHARMA.
--- NOTE | 2020-08-10 21:56 | General Progress Note ---
Subjective Allergies: Coded Allergies: No Known Allergies (Unverified , 07/29/20) Subjective Above noted d/w RN tolerating OGT feeding no residuals Objective Last 24 Hour Vital Signs Date Time Temp Pulse Resp B/P (MAP) Pulse Ox O2 Delivery O2 Flow Rate FiO2 08/10/20 19:11 98 18 100 08/10/20 19:00 105 17 122/66 (84) 98 08/10/20 18:00 101 17 102/52 (69) 91 08/10/20 17:00 99 18 109/58 (75) 90 08/10/20 16:00 Mechanical Ventilator 08/10/20 16:00 100.1 96 19 107/56 (73) 90 08/10/20 16:00 100 08/10/20 15:57 96 08/10/20 15:06 97 16 90 08/10/20 15:00 96 16 137/75 (95) 95 08/10/20 14:00 95 17 137/75 (95) 86 08/10/20 14:00 98 101/55 08/10/20 13:00 96 16 127/70 (89) 87 08/10/20 12:00 Mechanical Ventilator 08/10/20 12:00 99.8 96 16 115/57 (76) 98 08/10/20 12:00 100 08/10/20 11:54 96 08/10/20 11:05 96 16 90 08/10/20 11:00 96 16 117/62 (80) 98 08/10/20 10:08 100.0 08/10/20 10:00 101 16 130/64 (86) 100 08/10/20 09:00 94 16 118/60 (79) 100 08/10/20 08:00 100.7 97 16 108/55 (72) 99 08/10/20 08:00 Mechanical Ventilator 08/10/20 08:00 100 08/10/20 07:53 98 08/10/20 07:18 97 16 100 08/10/20 07:00 94 16 119/60 (79) 100 08/10/20 06:00 97 16 115/57 (76) 98 08/10/20 05:00 90 17 121/62 (81) 99 08/10/20 04:00 100 08/10/20 04:00 Mechanical Ventilator 08/10/20 04:00 96 08/10/20 04:00 100.0 98 18 110/58 (75) 90 08/10/20 03:00 94 19 116/64 (81) 94 08/10/20 02:13 100 17 100 08/10/20 02:00 103 19 106/58 (74) 85 08/10/20 01:55 101.0 08/10/20 01:00 99 16 118/58 (78) 98 08/10/20 00:00 80 08/10/20 00:00 98 08/10/20 00:00 Mechanical Ventilator 08/10/20 00:00 100.8 98 16 115/59 (77) 97 08/09/20 23:00 94 16 116/60 (78) 100 08/09/20 22:54 92 16 80 08/09/20 22:00 96 16 102/49 (66) 99 Intake and Output 08/09/20 08/10/20 19:00 07:00 Intake Total 1725 ml 1618.33 ml Output Total 590 ml 970 ml Balance 1135 ml 648.33 ml Free Water 150 ml 50 ml IV Total 1155 ml 1148.33 ml Tube Feeding 420 ml 420 ml Output Urine Total 590 ml 970 ml Laboratory Tests 08/10/20 05:56: White Blood Count 22.8*H, Red Blood Count 3.20L, Hemoglobin 10.5L, Hematocrit 32.4L, Mean Corpuscular Volume 101H, Mean Corpuscular Hemoglobin 33.0H, Mean Cor puscular Hemoglobin Concent 32.5, Red Cell Distribution Width 12.2, Platelet Count 111L, Mean Platelet Volume 7.5, Neutrophils (%) (Auto) , Lymphocytes (%) (Auto) , Monocytes (%) (Auto) , Eosinophils (%) (Auto) , Basophils (%) (Auto) , Differential Total Cells Counted 100, Neutrophils % (Manual) 95H, Lymphocytes % (Manual) 1L, Monocytes % (Manual) 4, Eosinophils % (Manual) 0, Basophils % (Manual) 0, Band Neutrophils 0, Platelet Estimate DecreasedL, Platelet Morphology Normal, Anisocytosis , Macrocytosis 1+, Sodium Level 144, Potassium Level 4.7, Chloride Level 109H, Carbon Dioxide Level 34H, Anion Gap 1L, Blood Urea Nitrogen 115H, Creatinine 3.5H, Estimat Glomerular Filtration Rate 17.7, Glucose Level 337H, Uric Acid 7.9H, Calcium Level 7.8L, Phosphorus Level 4.5, Magnesium Level 3.4H, Total Bilirubin 0.2, Aspartate Amino Transf (AST/SGOT) 115H, Alanine Aminotransferase (ALT/SGPT) 138H, Alkaline Phosphatase 120H, C-Reactive Protein, Quantitative 2.8H, Total Protein 4.7L, Albumin 1.7L, Globulin 3.0, Albumin/Globulin Ratio 0.6L 08/10/20 08:47: Arterial Blood pH 7.263L, Arterial Blood Partial Pressure CO2 73.5*H, Arterial Blood Partial Pressure O2 83.3, Arterial Blood HCO3 32.5H, Arterial Blood Oxygen Saturation 95.9, Arterial Blood Base Excess 3.8H, Mehdi Test Positive 08/10/20 09:02: POC Whole Blood Glucose [Pending] Height (Feet): 5 Height (Inches): 5.00 Weight (Pounds): 160 Objective WD man seen in ICU on vent, intubated OGT neck supple Coarse BS RR abd soft ND no edema Assessment/Plan Status: progressing, unchanged Assessment/Plan: Assessment/Plan Problem List: (1) Hypoxia ICD Codes: R09.02 - Hypoxemia SNOMED: 186787287 (2) Bilateral pneumonia ICD Codes: J18.9 - Pneumonia, unspecified organism SNOMED: 290182011, 617217056 (3) Acute respiratory failure with hypoxia ICD Codes: J96.01 - Acute respiratory failure with hypoxia SNOMED: 59763503, 758090608 (4) Bradycardia ICD Codes: R00.1 - Bradycardia, unspecified SNOMED: 60143218 (5) Malnutrition ICD Codes: E46 - Unspecified protein-calorie malnutrition SNOMED: 25400777 (6) Shock liver ICD Codes: K72.00 - Acute and subacute hepatic failure without coma SNOMED: 260423194 (7) ERIKA (acute kidney injury) ICD Codes: N17.9 - Acute kidney failure, unspecified (8) Dark stools , r/o GIB Assessment/Plan: NGTF covid care stool OB pending fu labs abx per ID shock liver>>>fu LFTS>>>improving bowel regimen poor prognosis will fu Bimal Bennett MD Aug 10, 2020 21:56
--- NOTE | 2020-08-10 22:02 | General Progress Note ---
Subjective ROS Limited/Unobtainable: Yes Allergies: Coded Allergies: No Known Allergies (Unverified , 07/29/20) Objective Last 24 Hour Vital Signs Date Time Temp Pulse Resp B/P (MAP) Pulse Ox O2 Delivery O2 Flow Rate FiO2 08/10/20 21:59 97 96/48 08/10/20 21:30 97 19 96/48 (64) 96 08/10/20 21:00 97 17 103/50 (67) 96 08/10/20 20:00 99.2 98 18 109/60 (76) 98 08/10/20 19:11 98 18 100 08/10/20 19:00 105 17 122/66 (84) 98 08/10/20 18:00 101 17 102/52 (69) 91 08/10/20 17:00 99 18 109/58 (75) 90 08/10/20 16:00 Mechanical Ventilator 08/10/20 16:00 100.1 96 19 107/56 (73) 90 08/10/20 16:00 100 08/10/20 15:57 96 08/10/20 15:06 97 16 90 08/10/20 15:00 96 16 137/75 (95) 95 08/10/20 14:00 95 17 137/75 (95) 86 08/10/20 14:00 98 101/55 08/10/20 13:00 96 16 127/70 (89) 87 08/10/20 12:00 Mechanical Ventilator 08/10/20 12:00 99.8 96 16 115/57 (76) 98 08/10/20 12:00 100 08/10/20 11:54 96 08/10/20 11:05 96 16 90 08/10/20 11:00 96 16 117/62 (80) 98 08/10/20 10:08 100.0 08/10/20 10:00 101 16 130/64 (86) 100 08/10/20 09:00 94 16 118/60 (79) 100 08/10/20 08:00 100.7 97 16 108/55 (72) 99 08/10/20 08:00 Mechanical Ventilator 08/10/20 08:00 100 08/10/20 07:53 98 08/10/20 07:18 97 16 100 08/10/20 07:00 94 16 119/60 (79) 100 08/10/20 06:00 97 16 115/57 (76) 98 08/10/20 05:00 90 17 121/62 (81) 99 08/10/20 04:00 100 08/10/20 04:00 Mechanical Ventilator 08/10/20 04:00 96 08/10/20 04:00 100.0 98 18 110/58 (75) 90 08/10/20 03:00 94 19 116/64 (81) 94 08/10/20 02:13 100 17 100 08/10/20 02:00 103 19 106/58 (74) 85 08/10/20 01:55 101.0 08/10/20 01:00 99 16 118/58 (78) 98 08/10/20 00:00 80 08/10/20 00:00 98 08/10/20 00:00 Mechanical Ventilator 08/10/20 00:00 100.8 98 16 115/59 (77) 97 08/09/20 23:00 94 16 116/60 (78) 100 08/09/20 22:54 92 16 80 Intake and Output 08/09/20 08/10/20 19:00 07:00 Intake Total 1725 ml 1618.33 ml Output Total 590 ml 970 ml Balance 1135 ml 648.33 ml Free Water 150 ml 50 ml IV Total 1155 ml 1148.33 ml Tube Feeding 420 ml 420 ml Output Urine Total 590 ml 970 ml Laboratory Tests 08/10/20 05:56: White Blood Count 22.8*H, Red Blood Count 3.20L, Hemoglobin 10.5L, Hematocrit 32.4L, Mean Corpuscular Volume 101H, Mean Corpuscular Hemoglobin 33.0H, Mean Corpuscular Hemoglobin Concent 32.5, Red Cell Distribution Width 12.2, Platelet Count 111L, Mean Platelet Volume 7.5, Neutrophils (%) (Auto) , Lymphocytes (%) (Auto) , Monocytes (%) (Auto) , Eosinophils (%) (Auto) , Basophils (%) (Auto) , Differential Total Cells Counted 100, Neutrophils % (Manual) 95H, Lymphocytes % (Manual) 1L, Monocytes % (Manual) 4, Eosinophils % (Manual) 0, Basophils % (Manual) 0, Band Neutrophils 0, Platelet Estimate DecreasedL, Platelet Morphology Normal, Anisocytosis , Macrocytosis 1+, Sodium Level 144, Potassium Level 4.7, Chloride Level 109H, Carbon Dioxide Level 34H, Anion Gap 1L, Blood Urea Nitrogen 115H, Creatinine 3.5H, Estimat Glomerular Filtration Rate 17.7, Glucose Level 337H, Uric Acid 7.9H, Calcium Level 7.8L, Phosphorus Level 4.5, Magnesium Level 3.4H, Total Bilirubin 0.2, Aspartate Amino Transf (AST/SGOT) 115H, Alanine Aminotransferase (ALT/SGPT) 138H, Alkaline Phosphatase 120H, C- Reactive Protein, Quantitative 2.8H, Total Protein 4.7L, Albumin 1.7L, Globulin 3.0, Albumin/Globulin Ratio 0.6L 08/10/20 08:47: Arterial Blood pH 7.263L, Arterial Blood Partial Pressure CO2 73.5*H, Arterial Blood Partial Pressure O2 83.3, Arterial Blood HCO3 32.5H, Arterial Blood Oxygen Saturation 95.9, Arterial Blood Base Excess 3.8H, Mehdi Test Positive 08/10/20 09:02: POC Whole Blood Glucose [Pending] Height (Feet): 5 Height (Inches): 5.00 Weight (Pounds): 160 General Appearance: lethargic Assessment/Plan Problem List: (1) Bilateral pneumonia ICD Codes: J18.9 - Pneumonia, unspecified organism SNOMED: 308483620, 180958070 (2) Acute respiratory failure with hypoxia ICD Codes: J96.01 - Acute respiratory failure with hypoxia SNOMED: 65014652, 930661839 (3) Malnutrition ICD Codes: E46 - Unspecified protein-calorie malnutrition SNOMED: 11175093 (4) Shock liver ICD Codes: K72.00 - Acute and subacute hepatic failure without coma SNOMED: 840437373 (5) ERIKA (acute kidney injury) ICD Codes: N17.9 - Acute kidney failure, unspecified SNOMED: 9504999, 97107657 (6) Diabetes mellitus out of control ICD Codes: E11.65 - Type 2 diabetes mellitus with hyperglycemia SNOMED: 25859911, 743278185 Status: progressing, unchanged Assessment/Plan: lethargic recommend to get neurology for brain function recording and will endorse to dr san in am to consider bioethics consult and neurology consult Rey Hannah MD Aug 10, 2020 22:01
--- NOTE | 2020-08-10 22:05 | NUR ---
NURSE NOTES: NO RESPONSE STATUS, VSS AT THIS TIME, WILL CONTINUE TO MONITOR.
[2020-08-11] VITALS (32 sets, daily range): BP systolic 87–145; BP diastolic 36–76
[2020-08-11] MEDS: Acetaminophen 650mg/20.3ml NG PRN (00:05)
--- NOTE | 2020-08-11 00:05 | NUR ---
NURSE NOTES: NOTED TEMP 100.9F THAT GIVEN TYLENOL 650MG VIA OGT, APPLIED COOLING MEASURE, WILL CONTINUE TO MONITOR.
[2020-08-11] MEDS: NovoLOG Insulin Flexpen SUBQ SCH ×8 (00:10→17:57)
--- NOTE | 2020-08-11 02:10 | NUR ---
NURSE NOTES: PICC LINE AREA NO BLEEDING NOTED, REPOSITIONED, NO RESPONSE STATUS.
--- NOTE | 2020-08-11 04:20 | NUR ---
NURSE NOTES: MORNING CARE WAS DONE, NO BM AT THIS MORNING, WILL CONTINUE PLAN OF CARE.
[2020-08-11 05:44] LABS: HEMATOCRIT 29.8 % (42.0-52.0); HEMOGLOBIN 9.5 G/DL (14.2-18.0); MEAN CORPUSCULAR VOLUME 101 FL (80-99); PLATELET COUNT 124 K/UL (150-450); RED BLOOD COUNT 2.96 M/UL (4.70-6.10); RED CELL DISTRIBUTION WIDTH 12.1 % (11.6-14.8)
[2020-08-11 05:51] LABS: INR 0.9 (0.9-1.1)
[2020-08-11] MEDS: dilTIAZem HCl 60mg tab GT SCH ×3 (05:58→22:00)
[2020-08-11 06:05] LABS: ALBUMIN 1.5 G/DL (3.4-5.0); ALBUMIN/GLOBULIN RATIO 0.5 (1.0-2.7); BILIRUBIN,TOTAL 0.1 MG/DL (0.2-1.0); CALCIUM 7.6 MG/DL (8.5-10.1); CREATININE 4.2 MG/DL (0.55-1.30); PHOSPHORUS 5.1 MG/DL (2.5-4.9)
[2020-08-11 06:08] LABS: WHITE BLOOD COUNT 22.5 K/UL (4.8-10.8)
--- NOTE | 2020-08-11 06:18 | NUR ---
NURSE NOTES: NO ACUTE DISTRESS NOTED AT THIS TIME.
--- NOTE | 2020-08-11 06:42 | General Progress Note ---
Subjective ROS Limited/Unobtainable: Yes Allergies: Coded Allergies: No Known Allergies (Unverified , 07/29/20) Subjective events note interval notes reviewed glucose values are elevated Item Value Date Time Bedside Blood Glucose 332 mg/dl H 08/11/20 0556 Bedside Blood Glucose 327 mg/dl H 08/11/20 0011 Bedside Blood Glucose 298 mg/dl H 08/10/20 2110 Bedside Blood Glucose 304 mg/dl H 08/10/20 1851 Bedside Blood Glucose 284 mg/dl H 08/10/20 1341 Bedside Blood Glucose 312 mg/dl H 08/10/20 0923 Objective Last 24 Hour Vital Signs Date Time Temp Pulse Resp B/P (MAP) Pulse Ox O2 Delivery O2 Flow Rate FiO2 08/11/20 06:00 98 16 104/50 (68) 97 08/11/20 05:58 98 97/45 08/11/20 05:15 100 17 97/45 (62) 97 08/11/20 05:00 100 17 87/36 (53) 97 08/11/20 04:00 96 08/11/20 04:00 99.7 96 16 96/49 (65) 99 08/11/20 04:00 100 08/11/20 04:00 Mechanical Ventilator 08/11/20 03:04 102 18 100 08/11/20 03:00 105 19 103/58 (73) 95 08/11/20 02:00 98 19 102/50 (67) 98 08/11/20 01:00 97 19 109/55 (73) 97 08/11/20 00:35 100.2 08/11/20 00:30 100.2 97 19 107/54 (71) 96 08/11/20 00:00 100 08/11/20 00:00 100 08/11/20 00:00 Mechanical Ventilator 08/11/20 00:00 100.9 100 19 104/54 (71) 96 08/10/20 23:09 98 19 100 08/10/20 23:00 97 18 118/67 (84) 98 08/10/20 22:00 96 19 113/62 (79) 97 08/10/20 21:59 97 96/48 08/10/20 21:30 97 19 96/48 (64) 96 08/10/20 21:00 97 17 103/50 (67) 96 08/10/20 20:00 99.2 98 18 109/60 (76) 98 08/10/20 20:00 Mechanical Ventilator 08/10/20 20:00 100 08/10/20 19:11 98 18 100 08/10/20 19:11 101 08/10/20 19:00 105 17 122/66 (84) 98 08/10/20 18:00 101 17 102/52 (69) 91 08/10/20 17:00 99 18 109/58 (75) 90 08/10/20 16:00 Mechanical Ventilator 08/10/20 16:00 100.1 96 19 107/56 (73) 90 08/10/20 16:00 100 08/10/20 15:57 96 08/10/20 15:06 97 16 90 08/10/20 15:00 96 16 137/75 (95) 95 08/10/20 14:00 95 17 137/75 (95) 86 08/10/20 14:00 98 101/55 08/10/20 13:00 96 16 127/70 (89) 87 08/10/20 12:00 Mechanical Ventilator 08/10/20 12:00 99.8 96 16 115/57 (76) 98 08/10/20 12:00 100 08/10/20 11:54 96 08/10/20 11:05 96 16 90 08/10/20 11:00 96 16 117/62 (80) 98 08/10/20 10:08 100.0 08/10/20 10:00 101 16 130/64 (86) 100 08/10/20 09:00 94 16 118/60 (79) 100 08/10/20 08:00 100.7 97 16 108/55 (72) 99 08/10/20 08:00 Mechanical Ventilator 08/10/20 08:00 100 08/10/20 07:53 98 08/10/20 07:18 97 16 100 08/10/20 07:00 94 16 119/60 (79) 100 Intake and Output 08/10/20 08/11/20 19:00 07:00 Intake Total 1565 ml 1605 ml Output Total 830 ml 510 ml Balance 735 ml 1095 ml Free Water 190 ml IV Total 955 ml 1100 ml Tube Feeding 420 ml 385 ml Other 120 ml Output Urine Total 830 ml 510 ml Laboratory Tests 08/10/20 08:47: Arterial Blood pH 7.263L, Arterial Blood Partial Pressure CO2 73.5*H, Arterial Blood Partial Pressure O2 83.3, Arterial Blood HCO3 32.5H, Arterial Blood Oxygen Saturation 95.9, Arterial Blood Base Excess 3.8H, Mehdi Test Positive 08/10/20 09:02: POC Whole Blood Glucose [Pending] 08/11/20 04:38: White Blood Count 22.5*H, Red Blood Count 2.96L, Hemoglobin 9.5L, Hematocrit 29.8L, Mean Corpuscular Volume 101H, Mean Corpuscular Hemoglobin 32.2H, Mean Corpuscular Hemoglobin Concent 32.0, Red Cell Distribution Width 12.1, Platelet Count 124L, Mean Platelet Volume 7.6, Neutrophils (%) (Auto) , Lymphocytes (%) (Auto) , Monocytes (%) (Auto) , Eosinophils (%) (Auto) , Basophils (%) (Auto) , Neutrophils % (Manual) [Pending], Lymphocytes % (Manual) [Pending], Platelet Estimate [Pending], Platelet Morphology [Pending], Prothrombin Time 10.5, Prothromb Time International Ratio 0.9, Activated Partial Thromboplast Time 26, Sodium Level 140, Potassium Level 5.0, Chloride Level 105, Carbon Dioxide Level 33H, Anion Gap 3L, Blood Urea Nitrogen 129H, Creatinine 4.2H, Estimat Glomerular Filtration Rate 14.3, Glucose Level 349H, Calcium Level 7.6L, Phosphorus Level 5.1H, Magnesium Level 3.4H, Total Bilirubin 0.1L, Gamma Glutamyl Transpeptidase 175H, Aspartate Amino Transf (AST/SGOT) 249H, Alanine Aminotransferase (ALT/SGPT) 96H, Alkaline Phosphatase 121H, C-Reactive Protein, Quantitative 4.0H , Total Protein 4.5L, Albumin 1.5L, Globulin 3.0, Albumin/Globulin Ratio 0.5L Height (Feet): 5 Height (Inches): 5.00 Weight (Pounds): 160 Objective Current Medications Medications (Trade) Dose Ordered Sig/Fabiano Route PRN Reason Start Time Stop Time Status Last Admin Dose Admin Acetaminophen (Tylenol) 650 mg Q4H PRN NG Temp >100.5 08/03/20 04:15 09/02/20 04:14 08/11/20 00:05 Acetaminophen (Tylenol) 650 mg Q4H PRN RECTAL Temp >100.5 08/01/20 20:30 08/31/20 20:29 08/02/20 10:28 Albuterol Sulfate (Proventil MDI) 2 puff Q4H PRN INH Shortness of Breath 07/29/20 22:45 10/27/20 22:44 Ceftriaxone Sodium 1 gm/ Dextrose 55 ml @ 110 mls/hr Q24H IVPB 08/07/20 10:00 08/14/20 09:59 08/10/20 09:38 Cetylpyridinium Chloride (Cepacol) 1 lozg Q2H PRN [place] For Cough 07/30/20 21:00 10/28/20 20:59 08/01/20 08:47 Chlorhexidine Gluconate (Marisela-Hex 2%) 1 applic DAILY@2000 TOPIC 08/08/20 20:00 11/06/20 19:59 08/10/20 19:50 Clonidine HCl (Catapres Tab) 0.1 mg Q2H PRN ORAL SBP > 170mmHg 08/04/20 09:45 11/02/20 09:44 08/07/20 23:20 Dextrose 1,000 ml @ 100 mls/hr Q10H IV 08/06/20 12:15 09/05/20 12:14 08/11/20 02:15 Dextrose (Dextrose 50%) 25 ml Q30M PRN IV Hypoglycemia 08/10/20 12:15 11/08/20 12:14 Dextrose (Dextrose 50%) 50 ml Q30M PRN IV Hypoglycemia 08/10/20 12:15 11/08/20 12:14 Diltiazem HCl (Cardizem Tab) 120 mg Q8HR GT 08/08/20 22:00 09/07/20 21:59 08/09/20 14:22 Docusate Sodium (Colace) 100 mg Q12HR GT 08/08/20 21:00 09/07/20 20:59 08/10/20 20:50 Enoxaparin Sodium (Lovenox) 30 mg DAILY SUBQ 08/02/20 10:00 10/31/20 09:59 08/10/20 08:55 Guaifenesin/ Dextromethorphan (Robitussin DM Syrup) 15 ml Q6H PRN ORAL For Cough 07/31/20 08:30 10/29/20 08:29 08/01/20 08:47 Insulin Aspart (NovoLOG) Q6HR SUBQ 08/06/20 12:00 11/04/20 11:59 08/11/20 05:38 Insulin Aspart (NovoLOG) 6 units EVERY 6 HOURS SUBQ 08/10/20 18:00 11/08/20 17:59 08/11/20 05:39 Insulin Detemir (Levemir) 30 units Q12HR SUBQ 08/10/20 21:00 11/04/20 20:59 08/10/20 21:07 Methylprednisolone Sodium Succinate (Solu-MEDROL) 40 mg EVERY 12 HOURS IVP 08/04/20 12:30 11/02/20 12:29 08/10/20 20:50 Norepinephrine Bitartrate 4 mg/ Sodium Chloride 250 ml @ 0 mls/hr Q24H PRN IV For hypotension 08/08/20 17:15 08/17/20 19:00 Pantoprazole (Protonix) 40 mg DAILY IVP 08/06/20 10:00 09/05/20 09:59 08/10/20 08:54 Polyethylene Glycol (Miralax) 17 gm BEDTIME ORAL 08/06/20 21:00 09/05/20 20:59 08/10/20 20:50 Assessment/Plan Problem List: (1) Diabetes mellitus out of control ICD Codes: E11.65 - Type 2 diabetes mellitus with hyperglycemia SNOMED: 66670620, 863435766 (2) Acute respiratory failure with hypoxia ICD Codes: J96.01 - Acute respiratory failure with hypoxia SNOMED: 36836148, 787341586 (3) Bilateral pneumonia ICD Codes: J18.9 - Pneumonia, unspecified organism SNOMED: 118449849, 349816045 Status: progressing, unchanged Assessment/Plan: continue Levemir 30 units bid increase Novolog 6 to 16 units every 6 hours continue Novolog sliding scale every 6 hours Jeffrey Sinclair MD Aug 11, 2020 06:42
--- NOTE | 2020-08-11 07:07 | Hematology/Onc Progress Note ---
Assessment/Plan Assessment/Plan Assessment and Recs # Leukocytosis with Acute respiratory failure with hypoxia/covid19++ --> wbc 27-->20-->19-->23-->28-->23 --> ABx ctx --> steriods as well --> pulm and ID # Thrombocytopenia is likely related to covid19 --> plt 83-->118-->183->111-->107 --> trend as needed --> transfuse prn --> hep and hiv neg # Anemia of chronic dsease --> hgb 10 # Respiratory Failure --> intubated 08/01/20 --> oxygenating better --> Continue PEEP 12; now decreased to 5 # AMs --> as per neuro # Hyponatremia --> per primary MD # Hyperglycemia --> BG control # Pneumonia --> abx per ID --> on dexamethasone (07/30-) --> now on remdesivir per ID () # Covid19 with Elevated inflammatory markers; ferritin, D-Dimer --> On Lovenox # Dvt ppx lovenox sq Appreciate consultation and dw RN Subjective Constitutional: Denies: no symptoms, chills, fever, malaise, weakness, other HEENT: Denies: no symptoms, eye pain, blurred vision, tearing, double vision, ear pain, ear discharge, nose pain, nose congestion, throat pain, throat swelling, mouth pain, mouth swelling, other Cardiovascular: Denies: no symptoms, chest pain, edema, irregular heart rate, lightheadedness, palpitations, syncope, other Respiratory: Denies: no symptoms, cough, shortness of breath, SOB with excertion, SOB at rest, sputum, wheezing, other Genitourinary: Denies: no symptoms, burning, discharge, frequency, flank pain, hematuria, incontinence, pain, urgency, other Neurologic/Psychiatric: Denies: no symptoms, anxiety, depressed, emotional problems, headache, numbness, paresthesia, pre-existing deficit, seizure, tin gling, tremors, weakness, other Endocrine: Denies: no symptoms, excessive sweating, flushing, intolerance to cold, intolerance to heat, increased hunger, increased thirst, increased urine, unexplained weight gain, unexplained weight loss, other Allergies: Coded Allergies: No Known Allergies (Unverified , 07/29/20) Subjective 08/06 remains altered, on vent, poorly responsive, as per Rn Sherri, to inform son 08/07 labs noted, on vent, with ogt, meds reviewed, wbc elev, on steriods 08/08 remains on vent, on dex and ogt, no bleeding, on ctx 08/10 is on vent, ogt, no bleeding, meds noted, no night sweats, dw rn 08/11 on vent, gt, no bleeding, vital studies neg, dw rn, picc noted Objective Objective Current Medications Medications (Trade) Dose Ordered Sig/Fabiano Route PRN Reason Start Time Stop Time Status Last Admin Dose Admin Acetaminophen (Tylenol) 650 mg Q4H PRN NG Temp >100.5 08/03/20 04:15 09/02/20 04:14 08/11/20 00:05 Acetaminophen (Tylenol) 650 mg Q4H PRN RECTAL Temp >100.5 08/01/20 20:30 08/31/20 20:29 08/02/20 10:28 Albuterol Sulfate (Proventil MDI) 2 puff Q4H PRN INH Shortness of Breath 07/29/20 22:45 10/27/20 22:44 Ceftriaxone Sodium 1 gm/ Dextrose 55 ml @ 110 mls/hr Q24H IVPB 08/07/20 10:00 08/14/20 09:59 08/10/20 09:38 Cetylpyridinium Chloride (Cepacol) 1 lozg Q2H PRN [place] For Cough 07/30/20 21:00 10/28/20 20:59 08/01/20 08:47 Chlorhexidine Gluconate (Marisela-Hex 2%) 1 applic DAILY@2000 TOPIC 08/08/20 20:00 11/06/20 19:59 08/10/20 19:50 Clonidine HCl (Catapres Tab) 0.1 mg Q2H PRN ORAL SBP > 170mmHg 08/04/20 09:45 11/02/20 09:44 08/07/20 23:20 Dextrose 1,000 ml @ 100 mls/hr Q10H IV 08/06/20 12:15 09/05/20 12:14 08/11/20 02:15 Dextrose (Dextrose 50%) 25 ml Q30M PRN IV Hypoglycemia 08/10/20 12:15 11/08/20 12:14 Dextrose (Dextrose 50%) 50 ml Q30M PRN IV Hypoglycemia 08/10/20 12:15 11/08/20 12:14 Diltiazem HCl (Cardizem Tab) 120 mg Q8HR GT 08/08/20 22:00 09/07/20 21:59 08/09/20 14:22 Docusate Sodium (Colace) 100 mg Q12HR GT 08/08/20 21:00 09/07/20 20:59 08/10/20 20:50 Enoxaparin Sodium (Lovenox) 30 mg DAILY SUBQ 08/02/20 10:00 10/31/20 09:59 08/10/20 08:55 Guaifenesin/ Dextromethorphan (Robitussin DM Syrup) 15 ml Q6H PRN [place] For Cough 07/31/20 08:30 10/29/20 08:29 08/01/20 08:47 Insulin Aspart (NovoLOG) Q6HR SUBQ 08/06/20 12:00 11/04/20 11:59 08/11/20 05:38 Insulin Aspart (NovoLOG) 16 units EVERY 6 HOURS SUBQ 08/11/20 12:00 11/08/20 17:59 Insulin Detemir (Levemir) 30 units Q12HR SUBQ 08/10/20 21:00 11/04/20 20:59 08/10/20 21:07 Methylprednisolone Sodium Succinate (Solu-MEDROL) 40 mg EVERY 12 HOURS IVP 08/04/20 12:30 11/02/20 12:29 08/10/20 20:50 Norepinephrine Bitartrate 4 mg/ Sodium Chloride 250 ml @ 0 mls/hr Q24H PRN IV For hypotension 08/08/20 17:15 08/17/20 19:00 Pantoprazole (Protonix) 40 mg DAILY IVP 08/06/20 10:00 09/05/20 09:59 08/10/20 08:54 Polyethylene Glycol (Miralax) 17 gm BEDTIME ORAL 08/06/20 21:00 09/05/20 20:59 08/10/20 20:50 Last 24 Hour Vital Signs Date Time Temp Pulse Resp B/P (MAP) Pulse Ox O2 Delivery O2 Flow Rate FiO2 08/11/20 06:00 98 16 104/50 (68) 97 08/11/20 05:58 98 97/45 08/11/20 05:15 100 17 97/45 (62) 97 08/11/20 05:00 100 17 87/36 (53) 97 08/11/20 04:00 96 08/11/20 04:00 99.7 96 16 96/49 (65) 99 08/11/20 04:00 100 08/11/20 04:00 Mechanical Ventilator 08/11/20 03:04 102 18 100 08/11/20 03:00 105 19 103/58 (73) 95 08/11/20 02:00 98 19 102/50 (67) 98 08/11/20 01:00 97 19 109/55 (73) 97 08/11/20 00:35 100.2 08/11/20 00:30 100.2 97 19 107/54 (71) 96 08/11/20 00:00 100 08/11/20 00:00 100 08/11/20 00:00 Mechanical Ventilator 08/11/20 00:00 100.9 100 19 104/54 (71) 96 08/10/20 23:09 98 19 100 08/10/20 23:00 97 18 118/67 (84) 98 08/10/20 22:00 96 19 113/62 (79) 97 08/10/20 21:59 97 96/48 08/10/20 21:30 97 19 96/48 (64) 96 08/10/20 21:00 97 17 103/50 (67) 96 08/10/20 20:00 99.2 98 18 109/60 (76) 98 08/10/20 20:00 Mechanical Ventilator 08/10/20 20:00 100 08/10/20 19:11 98 18 100 08/10/20 19:11 101 08/10/20 19:00 105 17 122/66 (84) 98 08/10/20 18:00 101 17 102/52 (69) 91 08/10/20 17:00 99 18 109/58 (75) 90 08/10/20 16:00 Mechanical Ventilator 08/10/20 16:00 100.1 96 19 107/56 (73) 90 08/10/20 16:00 100 08/10/20 15:57 96 08/10/20 15:06 97 16 90 08/10/20 15:00 96 16 137/75 (95) 95 08/10/20 14:00 95 17 137/75 (95) 86 08/10/20 14:00 98 101/55 08/10/20 13:00 96 16 127/70 (89) 87 08/10/20 12:00 Mechanical Ventilator 08/10/20 12:00 99.8 96 16 115/57 (76) 98 08/10/20 12:00 100 08/10/20 11:54 96 08/10/20 11:05 96 16 90 08/10/20 11:00 96 16 117/62 (80) 98 08/10/20 10:08 100.0 08/10/20 10:00 101 16 130/64 (86) 100 08/10/20 09:00 94 16 118/60 (79) 100 08/10/20 08:00 100.7 97 16 108/55 (72) 99 08/10/20 08:00 Mechanical Ventilator 08/10/20 08:00 100 08/10/20 07:53 98 08/10/20 07:18 97 16 100 08/10/20 07:00 94 16 119/60 (79) 100 08/10/20 06:00 97 16 115/57 (76) 98 08/10/20 05:00 90 17 121/62 (81) 99 08/10/20 04:00 100 08/10/20 04:00 Mechanical Ventilator 08/10/20 04:00 96 08/10/20 04:00 100.0 98 18 110/58 (75) 90 08/10/20 03:00 94 19 116/64 (81) 94 08/10/20 02:13 100 17 100 08/10/20 02:00 103 19 106/58 (74) 85 08/10/20 01:55 101.0 08/10/20 01:00 99 16 118/58 (78) 98 08/10/20 00:00 80 08/10/20 00:00 98 08/10/20 00:00 Mechanical Ventilator 08/10/20 00:00 100.8 98 16 115/59 (77) 97 08/09/20 23:00 94 16 116/60 (78) 100 08/09/20 22:54 92 16 80 08/09/20 22:00 96 16 102/49 (66) 99 08/09/20 21:00 96 16 114/56 (75) 100 08/09/20 20:00 98.2 98 16 105/52 (69) 100 08/09/20 20:00 90 08/09/20 20:00 Mechanical Ventilator 08/09/20 20:00 97 08/09/20 19:10 96 16 100 08/09/20 19:00 98 16 106/50 (68) 100 08/09/20 18:59 98.2 08/09/20 18:00 98 16 116/64 (81) 100 08/09/20 17:00 100 16 113/57 (75) 100 08/09/20 16:16 90 08/09/20 16:00 Mechanical Ventilator 08/09/20 16:00 99.4 90 16 103/56 (72) 100 08/09/20 16:00 100 08/09/20 15:10 12 16 100 08/09/20 15:00 87 16 109/55 (73) 99 08/09/20 14:22 101 105/58 08/09/20 14:00 98 16 105/58 (74) 100 08/09/20 13:00 92 16 113/55 (74) 100 08/09/20 12:00 100 08/09/20 12:00 98.3 94 16 120/65 (83) 100 08/09/20 12:00 Mechanical Ventilator 08/09/20 11:30 90 08/09/20 11:00 89 16 117/64 (81) 100 08/09/20 11:00 93 16 100 08/09/20 10:00 93 16 102/54 (70) 99 08/09/20 09:00 88 16 113/61 (78) 100 08/09/20 08:00 Mechanical Ventilator 08/09/20 08:00 100 08/09/20 08:00 97.8 91 16 99/50 (66) 99 08/09/20 07:15 87 08/09/20 07:08 86 16 100 Intake and Output 08/10/20 08/11/20 19:00 07:00 Intake Total 1565 ml 1605 ml Output Total 830 ml 510 ml Balance 735 ml 1095 ml Free Water 190 ml IV Total 955 ml 1100 ml Tube Feeding 420 ml 385 ml Other 120 ml Output Urine Total 830 ml 510 ml Labs Test 08/09/20 03:30 08/09/20 05:34 08/09/20 09:39 08/10/20 05:56 White Blood Count 21.5 K/UL (4.8-10.8) 22.8 K/UL (4.8-10.8) Red Blood Count 3.34 M/UL (4.70-6.10) 3.20 M/UL (4.70-6.10) Hemoglobin 10.7 G/DL (14.2-18.0) 10.5 G/DL (14.2-18.0) Hematocrit 33.8 % (42.0-52.0) 32.4 % (42.0-52.0) Mean Corpuscular Volume 101 FL (80-99) 101 FL (80-99) Mean Corpuscular Hemoglobin 32.2 PG (27.0-31.0) 33.0 PG (27.0-31.0) Mean Corpuscular Hemoglobin Concent 31.8 G/DL (32.0-36.0) 32.5 G/DL (32.0-36.0) Red Cell Distribution Width 12.2 % (11.6-14.8) 12.2 % (11.6-14.8) Platelet Count 112 K/UL (150-450) 111 K/UL (150-450) Mean Platelet Volume 7.9 FL (6.5-10.1) 7.5 FL (6.5-10.1) Neutrophils (%) (Auto) % (45.0-75.0) % (45.0-75.0) Lymphocytes (%) (Auto) % (20.0-45.0) % (20.0-45.0) Monocytes (%) (Auto) % (1.0-10.0) % (1.0-10.0) Eosinophils (%) (Auto) % (0.0-3.0) % (0.0-3.0) Basophils (%) (Auto) % (0.0-2.0) % (0.0-2.0) Differential Total Cells Counted 100 100 Neutrophils % (Manual) 94 % (45-75) 95 % (45-75) Lymphocytes % (Manual) 1 % (20-45) 1 % (20-45) Monocytes % (Manual) 5 % (1-10) 4 % (1-10) Eosinophils % (Manual) 0 % (0-3) 0 % (0-3) Basophils % (Manual) 0 % (0-2) 0 % (0-2) Band Neutrophils 0 % (0-8) 0 % (0-8) Platelet Estimate Decreased Decreased Platelet Morphology Normal Normal Macrocytosis 1+ 1+ Sodium Level 149 MMOL/L (136-145) 144 MMOL/L (136-145) Potassium Level 5.5 MMOL/L (3.5-5.1) 4.7 MMOL/L (3.5-5.1) Chloride Level 113 MMOL/L (98-107) 109 MMOL/L (98-107) Carbon Dioxide Level 36 MMOL/L (21-32) 34 MMOL/L (21-32) Anion Gap 0 mmol/L (5-15) 1 mmol/L (5-15) Blood Urea Nitrogen 93 mg/dL (7-18) 115 mg/dL (7-18) Creatinine 2.6 MG/DL (0.55-1.30) 3.5 MG/DL (0.55-1.30) Estimat Glomerular Filtration Rate 24.9 mL/min (>60) 17.7 mL/min (>60) Glucose Level 254 MG/DL (74-106) 337 MG/DL (74-106) Calcium Level 7.6 MG/DL (8.5-10.1) 7.8 MG/DL (8.5-10.1) Phosphorus Level 4.7 MG/DL (2.5-4.9) 4.5 MG/DL (2.5-4.9) Total Bilirubin 0.3 MG/DL (0.2-1.0) 0.2 MG/DL (0.2-1.0) Aspartate Amino Transf (AST/SGOT) 44 U/L (15-37) 115 U/L (15-37) Alanine Aminotransferase (ALT/SGPT) 233 U/L (12-78) 138 U/L (12-78) Alkaline Phosphatase 117 U/L (46-116) 120 U/L (46-116) C-Reactive Protein, Quantitative 0.8 mg/dL (0.00-0.90) 2.8 mg/dL (0.00-0.90) Pro-B-Type Natriuretic Peptide 2434 pg/mL (0-125) Total Protein 4.8 G/DL (6.4-8.2) 4.7 G/DL (6.4-8.2) Albumin 2.0 G/DL (3.4-5.0) 1.7 G/DL (3.4-5.0) Globulin 2.8 g/dL 3.0 g/dL Albumin/Globulin Ratio 0.7 (1.0-2.7) 0.6 (1.0-2.7) Triglycerides Level 227 MG/DL (30-150) Cholesterol Level 113 MG/DL (< 200) LDL Cholesterol 65 mg/dL (<100) HDL Cholesterol 21 MG/DL (40-60) Cholesterol/HDL Ratio 5.4 (3.3-4.4) POC Whole Blood Glucose 264 MG/DL (74-106) Arterial Blood pH 7.257 (7.350-7.450) Arterial Blood Partial Pressure CO2 78.7 mmHg (35.0-45.0) Arterial Blood Partial Pressure O2 93.1 mmHg (75.0-100.0) Arterial Blood HCO3 34.3 mmol/L (22.0-26.0) Arterial Blood Oxygen Saturation 96.6 % (95-100) Arterial Blood Base Excess 5.1 (-2-2) Mehdi Test Positive Anisocytosis Uric Acid 7.9 MG/DL (2.6-7.2) Magnesium Level 3.4 MG/DL (1.8-2.4) Test 08/10/20 08:47 08/10/20 09:02 08/11/20 04:38 Arterial Blood pH 7.263 (7.350-7.450) Arterial Blood Partial Pressure CO2 73.5 mmHg (35.0-45.0) Arterial Blood Partial Pressure O2 83.3 mmHg (75.0-100.0) Arterial Blood HCO3 32.5 mmol/L (22.0-26.0) Arterial Blood Oxygen Saturation 95.9 % (95-100) Arterial Blood Base Excess 3.8 (-2-2) Mehdi Test Positive White Blood Count 22.5 K/UL (4.8-10.8) Red Blood Count 2.96 M/UL (4.70-6.10) Hemoglobin 9.5 G/DL (14.2-18.0) Hematocrit 29.8 % (42.0-52.0) Mean Corpuscular Volume 101 FL (80-99) Mean Corpuscular Hemoglobin 32.2 PG (27.0-31.0) Mean Corpuscular Hemoglobin Concent 32.0 G/DL (32.0-36.0) Red Cell Distribution Width 12.1 % (11.6-14.8) Platelet Count 124 K/UL (150-450) Mean Platelet Volume 7.6 FL (6.5-10.1) Neutrophils (%) (Auto) % (45.0-75.0) Lymphocytes (%) (Auto) % (20.0-45.0) Monocytes (%) (Auto) % (1.0-10.0) Eosinophils (%) (Auto) % (0.0-3.0) Basophils (%) (Auto) % (0.0-2.0) Prothrombin Time 10.5 SEC (9.30-11.50) Prothromb Time International Ratio 0.9 (0.9-1.1) Activated Partial Thromboplast Time 26 SEC (23-33) Sodium Level 140 MMOL/L (136-145) Potassium Level 5.0 MMOL/L (3.5-5.1) Chloride Level 105 MMOL/L (98-107) Carbon Dioxide Level 33 MMOL/L (21-32) Anion Gap 3 mmol/L (5-15) Blood Urea Nitrogen 129 mg/dL (7-18) Creatinine 4.2 MG/DL (0.55-1.30) Estimat Glomerular Filtration Rate 14.3 mL/min (>60) Glucose Level 349 MG/DL (74-106) Calcium Level 7.6 MG/DL (8.5-10.1) Phosphorus Level 5.1 MG/DL (2.5-4.9) Magnesium Level 3.4 MG/DL (1.8-2.4) Total Bilirubin 0.1 MG/DL (0.2-1.0) Gamma Glutamyl Transpeptidase 175 U/L (5-85) Aspartate Amino Transf (AST/SGOT) 249 U/L (15-37) Alanine Aminotransferase (ALT/SGPT) 96 U/L (12-78) Alkaline Phosphatase 121 U/L (46-116) C-Reactive Protein, Quantitative 4.0 mg/dL (0.00-0.90) Total Protein 4.5 G/DL (6.4-8.2) Albumin 1.5 G/DL (3.4-5.0) Globulin 3.0 g/dL Albumin/Globulin Ratio 0.5 (1.0-2.7) Height (Feet): 5 Height (Inches): 5.00 Weight (Pounds): 160 Objective Vital Signs Vitals: reviewed, abnormal General Appearance: well appearing, mild distress HEENT: hearing grossly normal, moist mucus membranes Neck: full range of motion, supple Respiratory: ++vent Cardiovascular: normal peripheral pulses, regular rate, rhythm, no murmur Gastrointestinal: non tender, soft, non-distended, no guarding Neurologic: alert, oriented x3, no focal defects Skin: normal color, warm/dry Robin Ornelas MD Aug 11, 2020 07:07
--- NOTE | 2020-08-11 07:10 | NUR ---
NURSE HAND-OFF REPORT: Latest Vital Signs: Temperature 99.7 , Pulse 98 , B/P 104 /50 , Respiratory Rate 16 , O2 SAT 97 , Mechanical Ventilator, O2 Flow Rate . Vital Sign Comment: stable EKG Rhythm: Sinus Rhythm Rhythm change?: N Notified?: Moi Guzman MD Response: Latest Orozco Fall Score: 70 Fall Risk: High Risk Safety Measures: Call light Within Reach, Bed Alarm Zone 1, Side Rails Side Rails x2, Bed position Low and Locked. Fall Precautions:y Yellow Socks:y Door Sign:y Patient Fall Education Report given to CARLOS WISE.
--- NOTE | 2020-08-11 07:11 | NUR ---
NURSE NOTES: Received report from CARLOS Cowart. Patient in bed resting, no active s/s cardiac, respiratory distress noticed at this time. Patient SR with HR 98, on ETT 7.5 24cm on lip line AC 16 TV 550 Fio2 100% PEEP 8 O2 sat 97%. Patient obtunded, Endorsed plan for insertion of HD access today, family member aware, endorsed unable to do CT head yesterday due to change in condition. PICC line left upper arm, endorsed bleeding on the arm yesterday, will inform MD to clarification. Bed in lowest position, side rails upx3, call light within reach, bed alarm on , Will continue to monitor .
[2020-08-11] MEDS: Enoxaparin 30mg Inj SUBQ SCH (08:42)
[2020-08-11] MEDS: Docusate 100mg/10ml Liq GT SCH ×2 (08:42→20:31)
[2020-08-11] MEDS: Pantoprazole Inj IVP SCH (08:42)
[2020-08-11] MEDS: Solu-MEDROL 40mg Inj IVP SCH ×2 (08:42→20:31)
[2020-08-11] MEDS: Levemir Flexpen SUBQ SCH ×2 (09:13→20:55)
--- NOTE | 2020-08-11 09:57 | Pulmonology Progress Note ---
Subjective ROS Limited/Unobtainable: Yes Interval Events: Intubated 08/01/20 Constitutional: Reports: fever, other - low grade, Et=340.6 HEENT: Repors: no symptoms Respiratory: Reports: no symptoms Cardiovascular: Reports: no symptoms Gastrointestinal/Abdominal: Reports: no symptoms; Denies: nausea, vomiting, diarrhea Musculoskeletal: Denies: pain Allergies: Coded Allergies: No Known Allergies (Unverified , 07/29/20) All Systems: reviewed and negative except above Objective Last 24 Hour Vital Signs Date Time Temp Pulse Resp B/P (MAP) Pulse Ox O2 Delivery O2 Flow Rate FiO2 08/11/20 09:00 98 16 109/56 (73) 98 08/11/20 08:00 100 08/11/20 08:00 Mechanical Ventilator 08/11/20 08:00 99.8 97 16 110/55 (73) 98 08/11/20 07:02 99 16 100 08/11/20 07:00 98 16 104/54 (71) 98 08/11/20 06:00 98 16 104/50 (68) 97 08/11/20 05:58 98 97/45 08/11/20 05:15 100 17 97/45 (62) 97 08/11/20 05:00 100 17 87/36 (53) 97 08/11/20 04:00 96 08/11/20 04:00 99.7 96 16 96/49 (65) 99 08/11/20 04:00 100 08/11/20 04:00 Mechanical Ventilator 08/11/20 03:04 102 18 100 08/11/20 03:00 105 19 103/58 (73) 95 08/11/20 02:00 98 19 102/50 (67) 98 08/11/20 01:00 97 19 109/55 (73) 97 08/11/20 00:35 100.2 08/11/20 00:30 100.2 97 19 107/54 (71) 96 08/11/20 00:00 100 08/11/20 00:00 100 08/11/20 00:00 Mechanical Ventilator 08/11/20 00:00 100.9 100 19 104/54 (71) 96 08/10/20 23:09 98 19 100 08/10/20 23:00 97 18 118/67 (84) 98 08/10/20 22:00 96 19 113/62 (79) 97 08/10/20 21:59 97 96/48 08/10/20 21:30 97 19 96/48 (64) 96 08/10/20 21:00 97 17 103/50 (67) 96 08/10/20 20:00 99.2 98 18 109/60 (76) 98 08/10/20 20:00 Mechanical Ventilator 08/10/20 20:00 100 08/10/20 19:11 98 18 100 08/10/20 19:11 101 08/10/20 19:00 105 17 122/66 (84) 98 08/10/20 18:00 101 17 102/52 (69) 91 08/10/20 17:00 99 18 109/58 (75) 90 08/10/20 16:00 Mechanical Ventilator 08/10/20 16:00 100.1 96 19 107/56 (73) 90 08/10/20 16:00 100 08/10/20 15:57 96 08/10/20 15:06 97 16 90 08/10/20 15:00 96 16 137/75 (95) 95 08/10/20 14:00 95 17 137/75 (95) 86 08/10/20 14:00 98 101/55 08/10/20 13:00 96 16 127/70 (89) 87 08/10/20 12:00 Mechanical Ventilator 08/10/20 12:00 99.8 96 16 115/57 (76) 98 08/10/20 12:00 100 08/10/20 11:54 96 08/10/20 11:05 96 16 90 08/10/20 11:00 96 16 117/62 (80) 98 08/10/20 10:08 100.0 08/10/20 10:00 101 16 130/64 (86) 100 Intake and Output 08/10/20 08/11/20 19:00 07:00 Intake Total 1565 ml 1740 ml Output Total 830 ml 540 ml Balance 735 ml 1200 ml Free Water 190 ml IV Total 955 ml 1200 ml Tube Feeding 420 ml 420 ml Other 120 ml Output Urine Total 830 ml 540 ml General Appearance: no acute distress HEENT: normocephalic, atraumatic Respiratory: lungs clear Cardiovascular: normal rate, regular rhythm Abdomen: soft, non tender Laboratory Tests 08/11/20 04:38: White Blood Count 22.5*H, Red Blood Count 2.96L, Hemoglobin 9.5L, Hematocrit 29.8L, Mean Corpuscular Volume 101H, Mean Corpuscular Hemoglobin 32.2H, Mean Corpuscular Hemoglobin Concent 32.0, Red Cell Distribution Width 12.1, Platelet Count 124L, Mean Platelet Volume 7.6, Neutrophils (%) (Auto) , Lymphocytes (%) (Auto) , Monocytes (%) (Auto) , Eosinophils (%) (Auto) , Basophils (%) (Auto) , Differential Total Cells Counted 100, Neutrophils % (Manual) 94H, Lymphocytes % (Manual) 2L, Monocytes % (Manual) 4, Eosinophils % (Manual) 0, Basophils % (Manual) 0, Band Neutrophils 0, Platelet Estimate DecreasedL, Platelet Morphology Normal, Hypochromasia 1+, Macrocytosis 1+, Prothrombin Time 10.5, Prothromb Time International Ratio 0.9, Activated Partial Thromboplast Time 26, Sodium Level 140, Potassium Level 5.0, Chloride Level 105, Carbon Dioxide Level 33H, Anion Gap 3L, Blood Urea Nitrogen 129H, Creatinine 4.2H, Estimat Glomerular Filtration Rate 14.3, Glucose Level 349H, Calcium Level 7.6L, Phosphorus Level 5.1H, Magnesium Level 3.4H, Total Bilirubin 0.1L, Gamma Glutamyl Transpeptidase 175H, Aspartate Amino Transf (AST/SGOT) 249H, Alanine Aminotransferase (ALT/SGPT) 96H, Alkaline Phosphatase 121H, C-Reactive Protein, Quantitative 4.0H , Total Protein 4.5L, Albumin 1.5L, Globulin 3.0, Albumin/Globulin Ratio 0.5L Current Medications Medications (Trade) Dose Ordered Sig/Fabiano Route PRN Reason Start Time Stop Time Status Last Admin Dose Admin Acetaminophen (Tylenol) 650 mg Q4H PRN NG Temp >100.5 08/03/20 04:15 09/02/20 04:14 08/11/20 00:05 Acetaminophen (Tylenol) 650 mg Q4H PRN RECTAL Temp >100.5 08/01/20 20:30 08/31/20 20:29 08/02/20 10:28 Albuterol Sulfate (Proventil MDI) 2 puff Q4H PRN INH Shortness of Breath 07/29/20 22:45 10/27/20 22:44 Ceftriaxone Sodium 1 gm/ Dextrose 55 ml @ 110 mls/hr Q24H IVPB 08/07/20 10:00 08/14/20 09:59 08/10/20 09:38 Cetylpyridinium Chloride (Cepacol) 1 lozg Q2H PRN [place] For Cough 07/30/20 21:00 10/28/20 20:59 08/01/20 08:47 Chlorhexidine Gluconate (Marisela-Hex 2%) 1 applic DAILY@2000 TOPIC 08/08/20 20:00 11/06/20 19:59 08/10/20 19:50 Clonidine HCl (Catapres Tab) 0.1 mg Q2H PRN ORAL SBP > 170mmHg 08/04/20 09:45 11/02/20 09:44 08/07/20 23:20 Dextrose 1,000 ml @ 100 mls/hr Q10H IV 08/06/20 12:15 09/05/20 12:14 08/11/20 02:15 Dextrose (Dextrose 50%) 25 ml Q30M PRN IV Hypoglycemia 08/10/20 12:15 11/08/20 12:14 Dextrose (Dextrose 50%) 50 ml Q30M PRN IV Hypoglycemia 08/10/20 12:15 11/08/20 12:14 Diltiazem HCl (Cardizem Tab) 120 mg Q8HR GT 08/08/20 22:00 09/07/20 21:59 08/09/20 14:22 Docusate Sodium (Colace) 100 mg Q12HR GT 08/08/20 21:00 09/07/20 20:59 08/11/20 08:42 Enoxaparin Sodium (Lovenox) 30 mg DAILY SUBQ 08/02/20 10:00 10/31/20 09:59 08/10/20 08:55 Guaifenesin/ Dextromethorphan (Robitussin DM Syrup) 15 ml Q6H PRN ORAL For Cough 07/31/20 08:30 10/29/20 08:29 08/01/20 08:47 Insulin Aspart (NovoLOG) Q6HR SUBQ 08/06/20 12:00 11/04/20 11:59 08/11/20 05:38 Insulin Aspart (NovoLOG) 16 units EVERY 6 HOURS SUBQ 08/11/20 12:00 11/08/20 17:59 Insulin Detemir (Levemir) 30 units Q12HR SUBQ 08/10/20 21:00 11/04/20 20:59 08/11/20 09:13 Methylprednisolone Sodium Succinate (Solu-MEDROL) 40 mg EVERY 12 HOURS IVP 08/04/20 12:30 11/02/20 12:29 08/11/20 08:42 Norepinephrine Bitartrate 4 mg/ Sodium Chloride 250 ml @ 0 mls/hr Q24H PRN IV For hypotension 08/08/20 17:15 08/17/20 19:00 Pantoprazole (Protonix) 40 mg DAILY IVP 08/06/20 10:00 09/05/20 09:59 08/11/20 08:42 Polyethylene Glycol (Miralax) 17 gm BEDTIME ORAL 08/06/20 21:00 09/05/20 20:59 08/10/20 20:50 Assessment/Plan Assessment/Plan 1. Respiratory Failure - intubated 08/01/20 - oxygenating better - Continue PEEP 8 - continue 100% Fio2; will attempt to decrease 2. Hyponatremia - per primary MD 3. Hyperglycemia - BG control 5. Pneumonia - abx per ID - on dexamethasone (07/30-) - now on remdesivir per ID (08/01-) 6. COVID-19 rapid negative - COVID-19 PCR positive 7. Elevated inflammatory markers; ferritin, D-Dimer - likely secondary to #5 - On Lovenox Discussed with son Remains totally unresponsive; off all sedation WIll need neurology eval Await head CT Has worsening of renal function Nephrology following [facility] prognosis Milton Antonio MD Aug 11, 2020 09:57
--- NOTE | 2020-08-11 10:05 | NUR ---
NURSE NOTES: Dr. Antonio at the bedside, made aware of result of ABG today, no new order received at this time, Will continue to monitor.
--- NOTE | 2020-08-11 10:08 | Nephrology Progress Note ---
Assessment/Plan Problem List: (1) ERIKA (acute kidney injury) (2) Shock liver (3) Acute respiratory failure with hypoxia (4) Bilateral pneumonia Assessment Acute renal failure. Most likely due to hypotensive and shock from 8 PM last night to 5 AM this morning. Hyperkalemia. Acute hypoxic respiratory failure. Pneumonia with COVID-19. Elevated transaminase, most likely shock liver. Plan August 11: Lab reviewed. Renal parameters worsening. Due for insertion of dialysis catheter today. Patient's head CT scan was not done due to change in condition. Vitamin D supplements started for low vitamin D level. August 10: Lab reviewed. Renal parameters worsening. Patient unresponsive. Remains on ventilator. Remains full code. Due for CT scan of the head. Will plan for dialysis catheter and dialysis should the head CT results are desirable. Discussed with CARLOS Laurent. August 09: Labs reviewed. Potassium elevated. Kayexalate given. Serum sodium gradually improving. Continue D5W. Continue per consultants. Continue monitor renal parameters and electrolytes. August 08: Labs reviewed. Renal parameters stable. Abnormal electrolytes noted. Continue current management. Albumin bolus given. Continue to monitor current state August 07: Labs reviewed. Neutra-Phos via NG tube given. Serum sodium and serum potassium lowering. Medication list reviewed. Levemir and Cardizem doses were adjusted by consultants. Continue to monitor renal parameters. August 06: Labs reviewed. Serum potassium 5.2. Serum sodium 152. Will change IV to D5W. Will start with the Levemir 10 mg nightly. August 05: Labs reviewed. Renal parameters improving. LFTs gradually improving. IV changed to half-normal saline. Continue to monitor blood sugar. Continue to monitor renal parameters. Patient full code. Cardizem dose increa sed. August 04: Renal parameters improving. LFTs remain elevated. Hemodynamically stable. Continue to monitor renal parameters. Continue per consultants. Discussed with CARLOS Greene. August 03: Patient intubated on ventilator. Renal parameters worsening. LFTs elevated. Patient is deteriorating. Will consider dialysis treatment if no reversal of kidney failure. Discussed with CARLOS Alexis. Previously: Albumin bolus Increase IV fluid Kayexalate for high potassium Monitor renal parameters Subjective ROS Limited/Unobtainable: Yes Objective Objective Last 24 Hour Vital Signs Date Time Temp Pulse Resp B/P (MAP) Pulse Ox O2 Delivery O2 Flow Rate FiO2 08/11/20 09:00 98 16 109/56 (73) 98 08/11/20 08:00 100 08/11/20 08:00 Mechanical Ventilator 08/11/20 08:00 96 08/11/20 08:00 99.8 97 16 110/55 (73) 98 08/11/20 07:02 99 16 100 08/11/20 07:00 98 16 104/54 (71) 98 08/11/20 06:00 98 16 104/50 (68) 97 08/11/20 05:58 98 97/45 08/11/20 05:15 100 17 97/45 (62) 97 08/11/20 05:00 100 17 87/36 (53) 97 08/11/20 04:00 96 08/11/20 04:00 99.7 96 16 96/49 (65) 99 08/11/20 04:00 100 08/11/20 04:00 Mechanical Ventilator 08/11/20 03:04 102 18 100 08/11/20 03:00 105 19 103/58 (73) 95 08/11/20 02:00 98 19 102/50 (67) 98 08/11/20 01:00 97 19 109/55 (73) 97 08/11/20 00:35 100.2 08/11/20 00:30 100.2 97 19 107/54 (71) 96 08/11/20 00:00 100 08/11/20 00:00 100 08/11/20 00:00 Mechanical Ventilator 08/11/20 00:00 100.9 100 19 104/54 (71) 96 08/10/20 23:09 98 19 100 08/10/20 23:00 97 18 118/67 (84) 98 08/10/20 22:00 96 19 113/62 (79) 97 08/10/20 21:59 97 96/48 08/10/20 21:30 97 19 96/48 (64) 96 08/10/20 21:00 97 17 103/50 (67) 96 08/10/20 20:00 99.2 98 18 109/60 (76) 98 08/10/20 20:00 Mechanical Ventilator 08/10/20 20:00 100 08/10/20 19:11 98 18 100 08/10/20 19:11 101 08/10/20 19:00 105 17 122/66 (84) 98 1/17/21 18:00 101 17 102/52 (69) 91 08/10/20 17:00 99 18 109/58 (75) 90 08/10/20 16:00 Mechanical Ventilator 08/10/20 16:00 100.1 96 19 107/56 (73) 90 08/10/20 16:00 100 08/10/20 15:57 96 08/10/20 15:06 97 16 90 08/10/20 15:00 96 16 137/75 (95) 95 08/10/20 14:00 95 17 137/75 (95) 86 08/10/20 14:00 98 101/55 08/10/20 13:00 96 16 127/70 (89) 87 08/10/20 12:00 Mechanical Ventilator 08/10/20 12:00 99.8 96 16 115/57 (76) 98 08/10/20 12:00 100 08/10/20 11:54 96 08/10/20 11:05 96 16 90 08/10/20 11:00 96 16 117/62 (80) 98 08/10/20 10:08 100.0 Intake and Output 08/10/20 08/11/20 19:00 07:00 Intake Total 1565 ml 1740 ml Output Total 830 ml 540 ml Balance 735 ml 1200 ml Free Water 190 ml IV Total 955 ml 1200 ml Tube Feeding 420 ml 420 ml Other 120 ml Output Urine Total 830 ml 540 ml Current Medications Medications (Trade) Dose Ordered Sig/Fabiano Route PRN Reason Start Time Stop Time Status Last Admin Dose Admin Acetaminophen (Tylenol) 650 mg Q4H PRN NG Temp >100.5 08/03/20 04:15 09/02/20 04:14 08/11/20 00:05 Acetaminophen (Tylenol) 650 mg Q4H PRN RECTAL Temp >100.5 08/01/20 20:30 08/31/20 20:29 08/02/20 10:28 Albuterol Sulfate (Proventil MDI) 2 puff Q4H PRN INH Shortness of Breath 07/29/20 22:45 10/27/20 22:44 Ceftriaxone Sodium 1 gm/ Dextrose 55 ml @ 110 mls/hr Q24H IVPB 08/07/20 10:00 08/14/20 09:59 08/10/20 09:38 Cetylpyridinium Chloride (Cepacol) 1 lozg Q2H PRN [place] For Cough 07/30/20 21:00 10/28/20 20:59 08/01/20 08:47 Chlorhexidine Gluconate (Marisela-Hex 2%) 1 applic DAILY@2000 TOPIC 08/08/20 20:00 11/06/20 19:59 08/10/20 19:50 Clonidine HCl (Catapres Tab) 0.1 mg Q2H PRN ORAL SBP > 170mmHg 08/04/20 09:45 11/02/20 09:44 08/07/20 23:20 Dextrose 1,000 ml @ 100 mls/hr Q10H IV 08/06/20 12:15 09/05/20 12:14 08/11/20 02:15 Dextrose (Dextrose 50%) 25 ml Q30M PRN IV Hypoglycemia 08/10/20 12:15 11/08/20 12:14 Dextrose (Dextrose 50%) 50 ml Q30M PRN IV Hypoglycemia 08/10/20 12:15 11/08/20 12:14 Diltiazem HCl (Cardizem Tab) 120 mg Q8HR GT 08/08/20 22:00 09/07/20 21:59 08/09/20 14:22 Docusate Sodium (Colace) 100 mg Q12HR GT 08/08/20 21:00 09/07/20 20:59 08/11/20 08:42 Enoxaparin Sodium (Lovenox) 30 mg DAILY SUBQ 08/02/20 10:00 10/31/20 09:59 08/10/20 08:55 Guaifenesin/ Dextromethorphan (Robitussin DM Syrup) 15 ml Q6H PRN [place] For Cough 07/31/20 08:30 10/29/20 08:29 08/01/20 08:47 Insulin Aspart (NovoLOG) Q6HR SUBQ 08/06/20 12:00 11/04/20 11:59 08/11/20 05:38 Insulin Aspart (NovoLOG) 16 units EVERY 6 HOURS SUBQ 08/11/20 12:00 11/08/20 17:59 Insulin Detemir (Levemir) 30 units Q12HR SUBQ 08/10/20 21:00 11/04/20 20:59 08/11/20 09:13 Methylprednisolone Sodium Succinate (Solu-MEDROL) 40 mg EVERY 12 HOURS IVP 08/04/20 12:30 11/02/20 12:29 08/11/20 08:42 Norepinephrine Bitartrate 4 mg/ Sodium Chloride 250 ml @ 0 mls/hr Q24H PRN IV For hypotension 08/08/20 17:15 08/17/20 19:00 Pantoprazole (Protonix) 40 mg DAILY IVP 08/06/20 10:00 09/05/20 09:59 08/11/20 08:42 Polyethylene Glycol (Miralax) 17 gm BEDTIME ORAL 08/06/20 21:00 09/05/20 20:59 08/10/20 20:50 Laboratory Tests 08/11/20 04:38: White Blood Count 22.5*H, Red Blood Count 2.96L, Hemoglobin 9.5L, Hematocrit 29.8L, Mean Corpuscular Volume 101H, Mean Corpuscular Hemoglobin 32.2H, Mean Corpuscular Hemoglobin Concent 32.0, Red Cell Distribution Width 12.1, Platelet Count 124L, Mean Platelet Volume 7.6, Neutrophils (%) (Auto) , Lymphocytes (%) (Auto) , Monocytes (%) (Auto) , Eosinophils (%) (Auto) , Basophils (%) (Auto) , Differential Total Cells Counted 100, Neutrophils % (Manual) 94H, Lymphocytes % (Manual) 2L, Monocytes % (Manual) 4, Eosinophils % (Manual) 0, Basophils % (Manual) 0, Band Neutrophils 0, Platelet Estimate DecreasedL, Platelet Morphology Normal, Hypochromasia 1+, Macrocytosis 1+, Prothrombin Time 10.5, Prothromb Time International Ratio 0.9, Activated Partial Thromboplast Time 26, Sodium Level 140, Potassium Level 5.0, Chloride Level 105, Carbon Dioxide Level 33H, Anion Gap 3L, Blood Urea Nitrogen 129H, Creatinine 4.2H, Estimat Glomerular Filtration Rate 14.3, Glucose Level 349H, Calcium Level 7.6L, Phosphorus Level 5.1H, Magnesium Level 3.4H, Total Bilirubin 0.1L, Gamma Glutamyl Transpeptidase 175H, Aspartate Amino Transf (AST/SGOT) 249H, Alanine Aminotransferase (ALT/SGPT) 96H, Alkaline Phosphatase 121H, C-Reactive Protein, Quantitative 4.0H , Total Protein 4.5L, Albumin 1.5L, Globulin 3.0, Albumin/Globulin Ratio 0.5L 08/11/20 09:51: Arterial Blood pH 7.256L, Arterial Blood Partial Pressure CO2 74.0*H, Arterial Blood Partial Pressure O2 73.0L, Arterial Blood HCO3 32.2H, Arterial Blood Oxygen Saturation 93.9L, Arterial Blood Base Excess 3.5H, Mehdi Test Positive Height (Feet): 5 Height (Inches): 5.00 Weight (Pounds): 160 General Appearance: no apparent distress EENT: other - Intubated on ventilator Cardiovascular: tachycardia Respiratory/Chest: decreased breath sounds Abdomen: distended Jared Everett MD Aug 11, 2020 10:08
--- NOTE | 2020-08-11 10:16 | General Progress Note ---
Subjective ROS Limited/Unobtainable: No Allergies: Coded Allergies: No Known Allergies (Unverified , 07/29/20) Objective Last 24 Hour Vital Signs Date Time Temp Pulse Resp B/P (MAP) Pulse Ox O2 Delivery O2 Flow Rate FiO2 08/11/20 09:00 98 16 109/56 (73) 98 08/11/20 08:00 100 08/11/20 08:00 Mechanical Ventilator 08/11/20 08:00 96 08/11/20 08:00 99.8 97 16 110/55 (73) 98 08/11/20 07:02 99 16 100 08/11/20 07:00 98 16 104/54 (71) 98 08/11/20 06:00 98 16 104/50 (68) 97 08/11/20 05:58 98 97/45 08/11/20 05:15 100 17 97/45 (62) 97 08/11/20 05:00 100 17 87/36 (53) 97 08/11/20 04:00 96 08/11/20 04:00 99.7 96 16 96/49 (65) 99 08/11/20 04:00 100 08/11/20 04:00 Mechanical Ventilator 08/11/20 03:04 102 18 100 08/11/20 03:00 105 19 103/58 (73) 95 08/11/20 02:00 98 19 102/50 (67) 98 08/11/20 01:00 97 19 109/55 (73) 97 08/11/20 00:35 100.2 08/11/20 00:30 100.2 97 19 107/54 (71) 96 08/11/20 00:00 100 08/11/20 00:00 100 08/11/20 00:00 Mechanical Ventilator 08/11/20 00:00 100.9 100 19 104/54 (71) 96 08/10/20 23:09 98 19 100 08/10/20 23:00 97 18 118/67 (84) 98 08/10/20 22:00 96 19 113/62 (79) 97 08/10/20 21:59 97 96/48 08/10/20 21:30 97 19 96/48 (64) 96 08/10/20 21:00 97 17 103/50 (67) 96 08/10/20 20:00 99.2 98 18 109/60 (76) 98 08/10/20 20:00 Mechanical Ventilator 08/10/20 20:00 100 08/10/20 19:11 98 18 100 08/10/20 19:11 101 08/10/20 19:00 105 17 122/66 (84) 98 08/10/20 18:00 101 17 102/52 (69) 91 08/10/20 17:00 99 18 109/58 (75) 90 08/10/20 16:00 Mechanical Ventilator 08/10/20 16:00 100.1 96 19 107/56 (73) 90 08/10/20 16:00 100 08/10/20 15:57 96 08/10/20 15:06 97 16 90 08/10/20 15:00 96 16 137/75 (95) 95 08/10/20 14:00 95 17 137/75 (95) 86 08/10/20 14:00 98 101/55 08/10/20 13:00 96 16 127/70 (89) 87 08/10/20 12:00 Mechanical Ventilator 08/10/20 12:00 99.8 96 16 115/57 (76) 98 08/10/20 12:00 100 08/10/20 11:54 96 08/10/20 11:05 96 16 90 08/10/20 11:00 96 16 117/62 (80) 98 Intake and Output 08/10/20 08/11/20 19:00 07:00 Intake Total 1565 ml 1740 ml Output Total 830 ml 540 ml Balance 735 ml 1200 ml Free Water 190 ml IV Total 955 ml 1200 ml Tube Feeding 420 ml 420 ml Other 120 ml Output Urine Total 830 ml 540 ml Laboratory Tests 08/11/20 04:38: White Blood Count 22.5*H, Red Blood Count 2.96L, Hemoglobin 9.5L, Hematocrit 29.8L, Mean Corpuscular Volume 101H, Mean Corpuscular Hemoglobin 32.2H, Mean Corpuscular Hemoglobin Concent 32.0, Red Cell Distribution Width 12.1, Platelet Count 124L, Mean Platelet Volume 7.6, Neutrophils (%) (Auto) , Lymphocytes (%) (Auto) , Monocytes (%) (Auto) , Eosinophils (%) (Auto) , Basophils (%) (Auto) , Differential Total Cells Counted 100, Neutrophils % (Manual) 94H, Lymphocytes % (Manual) 2L, Monocytes % (Manual) 4, Eosinophils % (Manual) 0, Basophils % (Manual) 0, Band Neutrophils 0, Platelet Estimate DecreasedL, Platelet Morphology Normal, Hypochromasia 1+, Macrocytosis 1+, Prothrombin Time 10.5, Prothromb Time International Ratio 0.9, Activated Partial Thromboplast Time 26, Sodium Level 140, Potassium Level 5.0, Chloride Level 105, Carbon Dioxide Level 33H, Anion Gap 3L, Blood Urea Nitrogen 129H, Creatinine 4.2H, Estimat Glomerular Filtration Rate 14.3, Glucose Level 349H, Calcium Level 7.6L, Phosphorus Level 5.1H, Magnesium Level 3.4H, Total Bilirubin 0.1L, Gamma Glutamyl Transpeptidase 175H, Aspartate Amino Transf (AST/SGOT) 249H, Alanine Aminotransferase (ALT/SGPT) 96H, Alkaline Phosphatase 121H, C-Reactive Protein, Quantitative 4.0H , Total Protein 4.5L, Albumin 1.5L, Globulin 3.0, Albumin/Globulin Ratio 0.5L 08/11/20 09:51: Arterial Blood pH 7.256L, Arterial Blood Partial Pressure CO2 74.0*H, Arterial Blood Partial Pressure O2 73.0L, Arterial Blood HCO3 32.2H, Arterial Blood Oxygen Saturation 93.9L, Arterial Blood Base Excess 3.5H, Mehdi Test Positive Height (Feet): 5 Height (Inches): 5.00 Weight (Pounds): 160 General Appearance: lethargic EENT: normal ENT inspection Neck: supple Cardiovascular: normal rate Respiratory/Chest: decreased breath sounds Abdomen: hypoactive bowel sounds Extremities: non-tender Assessment/Plan Problem List: (1) Hypoxia ICD Codes: R09.02 - Hypoxemia SNOMED: 008472951 (2) Bilateral pneumonia ICD Codes: J18.9 - Pneumonia, unspecified organism SNOMED: 911369797, 573388402 (3) Acute respiratory failure with hypoxia ICD Codes: J96.01 - Acute respiratory failure with hypoxia SNOMED: 32679673, 311093890 (4) Bradycardia ICD Codes: R00.1 - Bradycardia, unspecified SNOMED: 08658989 (5) Malnutrition ICD Codes: E46 - Unspecified protein-calorie malnutrition SNOMED: 24462066 (6) Shock liver ICD Codes: K72.00 - Acute and subacute hepatic failure without coma SNOMED: 915148114 (7) ERIKA (acute kidney injury) ICD Codes: N17.9 - Acute kidney failure, unspecified SNOMED: 1310149, 18941102 Status: progressing, unchanged Assessment/Plan: NGTF covid care fu labs abx per ID shock liver>>>fu LFTS>>>improving bowel regimen poor prognosis will fu Enoch Varner MD Aug 11, 2020 10:16
[2020-08-11] MEDS: Vitamin D 1000 units Tab GT SCH (10:30)
[2020-08-11] MEDS: cefTRIAXone 1 GM in D5W 55 ML IVPB SCH (10:30)
--- NOTE | 2020-08-11 10:47 | NUR ---
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 BUN 129, Creatinine 4.2 cxray bilateral infiltrates unchanged IS: Solumedrol IV q 12 h Rocephin IV QD Cardizem GT q 8 h Lovenox SQ QD Protonix IVP QD Levophed GTT HD catheter insertion ICU Status
--- NOTE | 2020-08-11 11:37 | Infectious Diseases Prog Note ---
Assessment/Plan Assessment/Plan antibiotics : ceftriaxone A 1. covid 19 pneumonia on 100 % Fi O2 with 98 % saturation 2. respiratory failure P 1. continue solumedrol 2. continue ceftriaxone 3. continue isolation Subjective ROS Limited/Unobtainable: Yes Allergies: Coded Allergies: No Known Allergies (Unverified , 07/29/20) Objective Last 24 Hour Vital Signs Date Time Temp Pulse Resp B/P (MAP) Pulse Ox O2 Delivery O2 Flow Rate FiO2 08/11/20 11:00 94 18 102/53 (69) 98 08/11/20 10:00 99 16 92/43 (59) 96 08/11/20 09:00 98 16 109/56 (73) 98 08/11/20 08:00 100 08/11/20 08:00 Mechanical Ventilator 08/11/20 08:00 96 08/11/20 08:00 99.8 97 16 110/55 (73) 98 08/11/20 07:02 99 16 100 08/11/20 07:00 98 16 104/54 (71) 98 08/11/20 06:00 98 16 104/50 (68) 97 08/11/20 05:58 98 97/45 08/11/20 05:15 100 17 97/45 (62) 97 08/11/20 05:00 100 17 87/36 (53) 97 08/11/20 04:00 96 08/11/20 04:00 99.7 96 16 96/49 (65) 99 08/11/20 04:00 100 08/11/20 04:00 Mechanical Ventilator 08/11/20 03:04 102 18 100 08/11/20 03:00 105 19 103/58 (73) 95 08/11/20 02:00 98 19 102/50 (67) 98 08/11/20 01:00 97 19 109/55 (73) 97 08/11/20 00:35 100.2 08/11/20 00:30 100.2 97 19 107/54 (71) 96 08/11/20 00:00 100 08/11/20 00:00 100 08/11/20 00:00 Mechanical Ventilator 08/11/20 00:00 100.9 100 19 104/54 (71) 96 08/10/20 23:09 98 19 100 08/10/20 23:00 97 18 118/67 (84) 98 08/10/20 22:00 96 19 113/62 (79) 97 08/10/20 21:59 97 96/48 08/10/20 21:30 97 19 96/48 (64) 96 08/10/20 21:00 97 17 103/50 (67) 96 08/10/20 20:00 99.2 98 18 109/60 (76) 98 08/10/20 20:00 Mechanical Ventilator 08/10/20 20:00 100 08/10/20 19:11 98 18 100 08/10/20 19:11 101 08/10/20 19:00 105 17 122/66 (84) 98 08/10/20 18:00 101 17 102/52 (69) 91 08/10/20 17:00 99 18 109/58 (75) 90 08/10/20 16:00 Mechanical Ventilator 08/10/20 16:00 100.1 96 19 107/56 (73) 90 08/10/20 16:00 100 08/10/20 15:57 96 08/10/20 15:06 97 16 90 08/10/20 15:00 96 16 137/75 (95) 95 08/10/20 14:00 95 17 137/75 (95) 86 08/10/20 14:00 98 101/55 08/10/20 13:00 96 16 127/70 (89) 87 08/10/20 12:00 Mechanical Ventilator 08/10/20 12:00 99.8 96 16 115/57 (76) 98 08/10/20 12:00 100 08/10/20 11:54 96 Height (Feet): 5 Height (Inches): 5.00 Weight (Pounds): 160 HEENT: other - intubated Laboratory Tests Test 08/11/20 04:38 08/11/20 09:51 White Blood Count 22.5 K/UL (4.8-10.8) *H Red Blood Count 2.96 M/UL (4.70-6.10) L Hemoglobin 9.5 G/DL (14.2-18.0) L Hematocrit 29.8 % (42.0-52.0) L Mean Corpuscular Volume 101 FL (80-99) H Mean Corpuscular Hemoglobin 32.2 PG (27.0-31.0) H Mean Corpuscular Hemoglobin Concent 32.0 G/DL (32.0-36.0) Red Cell Distribution Width 12.1 % (11.6-14.8) Platelet Count 124 K/UL (150-450) L Mean Platelet Volume 7.6 FL (6.5-10.1) Neutrophils (%) (Auto) % (45.0-75.0) Lymphocytes (%) (Auto) % (20.0-45.0) Monocytes (%) (Auto) % (1.0-10.0) Eosinophils (%) (Auto) % (0.0-3.0) Basophils (%) (Auto) % (0.0-2.0) Differential Total Cells Counted 100 Neutrophils % (Manual) 94 % (45-75) H Lymphocytes % (Manual) 2 % (20-45) L Monocytes % (Manual) 4 % (1-10) Eosinophils % (Manual) 0 % (0-3) Basophils % (Manual) 0 % (0-2) Band Neutrophils 0 % (0-8) Platelet Estimate Decreased L Platelet Morphology Normal Hypochromasia 1+ Macrocytosis 1+ Prothrombin Time 10.5 SEC (9.30-11.50) Prothromb Time International Ratio 0.9 (0.9-1.1) Activated Partial Thromboplast Time 26 SEC (23-33) Sodium Level 140 MMOL/L (136-145) Potassium Level 5.0 MMOL/L (3.5-5.1) Chloride Level 105 MMOL/L (98-107) Carbon Dioxide Level 33 MMOL/L (21-32) H Anion Gap 3 mmol/L (5-15) L Blood Urea Nitrogen 129 mg/dL (7-18) H Creatinine 4.2 MG/DL (0.55-1.30) H Estimat Glomerular Filtration Rate 14.3 mL/min (>60) Glucose Level 349 MG/DL (74-106) H Calcium Level 7.6 MG/DL (8.5-10.1) L Phosphorus Level 5.1 MG/DL (2.5-4.9) H Magnesium Level 3.4 MG/DL (1.8-2.4) H Total Bilirubin 0.1 MG/DL (0.2-1.0) L Gamma Glutamyl Transpeptidase 175 U/L (5-85) H Aspartate Amino Transf (AST/SGOT) 249 U/L (15-37) H Alanine Aminotransferase (ALT/SGPT) 96 U/L (12-78) H Alkaline Phosphatase 121 U/L (46-116) H C-Reactive Protein, Quantitative 4.0 mg/dL (0.00-0.90) H Total Protein 4.5 G/DL (6.4-8.2) L Albumin 1.5 G/DL (3.4-5.0) L Globulin 3.0 g/dL Albumin/Globulin Ratio 0.5 (1.0-2.7) L Arterial Blood pH 7.256 (7.350-7.450) Arterial Blood Partial Pressure CO2 74.0 mmHg (35.0-45.0) *H Arterial Blood Partial Pressure O2 73.0 mmHg (75.0-100.0) L Arterial Blood HCO3 32.2 mmol/L (22.0-26.0) H Arterial Blood Oxygen Saturation 93.9 % (95-100) L Arterial Blood Base Excess 3.5 (-2-2) H Mehdi Test Positive Current Medications Medications (Trade) Dose Ordered Sig/Fabiano Route PRN Reason Start Time Stop Time Status Last Admin Dose Admin Acetaminophen (Tylenol) 650 mg Q4H PRN NG Temp >100.5 08/03/20 04:15 09/02/20 04:14 08/11/20 00:05 Acetaminophen (Tylenol) 650 mg Q4H PRN RECTAL Temp >100.5 08/01/20 20:30 08/31/20 20:29 08/02/20 10:28 Albuterol Sulfate (Proventil MDI) 2 puff Q4H PRN INH Shortness of Breath 07/29/20 22:45 10/27/20 22:44 Ceftriaxone Sodium 1 gm/ Dextrose 55 ml @ 110 mls/hr Q24H IVPB 08/07/20 10:00 08/14/20 09:59 08/11/20 10:30 Cetylpyridinium Chloride (Cepacol) 1 lozg Q2H PRN [place] For Cough 07/30/20 21:00 10/28/20 20:59 08/01/20 08:47 Chlorhexidine Gluconate (Marisela-Hex 2%) 1 applic DAILY@1999 TOPIC 08/08/20 20:00 11/06/20 19:59 08/10/20 19:50 Clonidine HCl (Catapres Tab) 0.1 mg Q2H PRN ORAL SBP > 170mmHg 08/04/20 09:45 11/02/20 09:44 08/07/20 23:20 Dextrose 1,000 ml @ 100 mls/hr Q10H IV 08/06/20 12:15 09/05/20 12:14 08/11/20 02:15 Dextrose (Dextrose 50%) 25 ml Q30M PRN IV Hypoglycemia 08/10/20 12:15 11/08/20 12:14 Dextrose (Dextrose 50%) 50 ml Q30M PRN IV Hypoglycemia 08/10/20 12:15 11/08/20 12:14 Diltiazem HCl (Cardizem Tab) 120 mg Q8HR GT 08/08/20 22:00 09/07/20 21:59 08/09/20 14:22 Docusate Sodium (Colace) 100 mg Q12HR GT 08/08/20 21:00 09/07/20 20:59 08/11/20 08:42 Enoxaparin Sodium (Lovenox) 30 mg DAILY SUBQ 08/02/20 10:00 10/31/20 09:59 08/10/20 08:55 Guaifenesin/ Dextromethorphan (Robitussin DM Syrup) 15 ml Q6H PRN [place]AL For Cough 07/31/20 08:30 10/29/20 08:29 08/01/20 08:47 Insulin Aspart (NovoLOG) Q6HR SUBQ 08/06/20 12:00 11/04/20 11:59 08/11/20 05:38 Insulin Aspart (NovoLOG) 16 units EVERY 6 HOURS SUBQ 08/11/20 12:00 11/08/20 17:59 Insulin Detemir (Levemir) 30 units Q12HR SUBQ 08/10/20 21:00 11/04/20 20:59 08/11/20 09:13 Methylprednisolone Sodium Succinate (Solu-MEDROL) 40 mg EVERY 12 HOURS IVP 08/04/20 12:30 11/02/20 12:29 08/11/20 08:42 Norepinephrine Bitartrate 4 mg/ Sodium Chloride 250 ml @ 0 mls/hr Q24H PRN IV For hypotension 08/08/20 17:15 08/17/20 19:00 Pantoprazole (Protonix) 40 mg DAILY IVP 08/06/20 10:00 09/05/20 09:59 08/11/20 08:42 Polyethylene Glycol (Miralax) 17 gm BEDTIME ORAL 08/06/20 21:00 09/05/20 20:59 08/10/20 20:50 Vitamin D (Vitamin D) 5,000 unit DAILY GT 08/11/20 10:15 09/10/20 10:14 08/11/20 10:30 Santosh Cheek MD Aug 11, 2020 11:37
--- NOTE | 2020-08-11 11:38 | Surgery Progress Note ---
Surgery Progress Note Subjective Additional Comments persistent leukocytosis lft's worsening on support no n/v Objective Last 24 Hour Vital Signs Date Time Temp Pulse Resp B/P (MAP) Pulse Ox O2 Delivery O2 Flow Rate FiO2 08/11/20 11:00 94 18 102/53 (69) 98 08/11/20 10:00 99 16 92/43 (59) 96 08/11/20 09:00 98 16 109/56 (73) 98 08/11/20 08:00 100 08/11/20 08:00 Mechanical Ventilator 08/11/20 08:00 96 08/11/20 08:00 99.8 97 16 110/55 (73) 98 08/11/20 07:02 99 16 100 08/11/20 07:00 98 16 104/54 (71) 98 08/11/20 06:00 98 16 104/50 (68) 97 08/11/20 05:58 98 97/45 08/11/20 05:15 100 17 97/45 (62) 97 08/11/20 05:00 100 17 87/36 (53) 97 08/11/20 04:00 96 08/11/20 04:00 99.7 96 16 96/49 (65) 99 08/11/20 04:00 100 08/11/20 04:00 Mechanical Ventilator 08/11/20 03:04 102 18 100 08/11/20 03:00 105 19 103/58 (73) 95 08/11/20 02:00 98 19 102/50 (67) 98 08/11/20 01:00 97 19 109/55 (73) 97 08/11/20 00:35 100.2 08/11/20 00:30 100.2 97 19 107/54 (71) 96 08/11/20 00:00 100 08/11/20 00:00 100 08/11/20 00:00 Mechanical Ventilator 08/11/20 00:00 100.9 100 19 104/54 (71) 96 08/10/20 23:09 98 19 100 08/10/20 23:00 97 18 118/67 (84) 98 08/10/20 22:00 96 19 113/62 (79) 97 08/10/20 21:59 97 96/48 08/10/20 21:30 97 19 96/48 (64) 96 08/10/20 21:00 97 17 103/50 (67) 96 08/10/20 20:00 99.2 98 18 109/60 (76) 98 08/10/20 20:00 Mechanical Ventilator 08/10/20 20:00 100 08/10/20 19:11 98 18 100 08/10/20 19:11 101 08/10/20 19:00 105 17 122/66 (84) 98 08/10/20 18:00 101 17 102/52 (69) 91 08/10/20 17:00 99 18 109/58 (75) 90 08/10/20 16:00 Mechanical Ventilator 08/10/20 16:00 100.1 96 19 107/56 (73) 90 08/10/20 16:00 100 08/10/20 15:57 96 08/10/20 15:06 97 16 90 08/10/20 15:00 96 16 137/75 (95) 95 08/10/20 14:00 95 17 137/75 (95) 86 08/10/20 14:00 98 101/55 08/10/20 13:00 96 16 127/70 (89) 87 08/10/20 12:00 Mechanical Ventilator 08/10/20 12:00 99.8 96 16 115/57 (76) 98 08/10/20 12:00 100 08/10/20 11:54 96 I&O Intake and Output 08/10/20 08/11/20 19:00 07:00 Intake Total 1565 ml 1740 ml Output Total 830 ml 540 ml Balance 735 ml 1200 ml Free Water 190 ml IV Total 955 ml 1200 ml Tube Feeding 420 ml 420 ml Other 120 ml Output Urine Total 830 ml 540 ml Dressing: saturated Cardiovascular: RSR Respiratory: decreased breath sounds Abdomen: non-tender, present bowel sounds Extremities: edema, no tenderness, no cyanosis Laboratory Tests Test 08/11/20 04:38 08/11/20 09:51 White Blood Count 22.5 K/UL (4.8-10.8) *H Red Blood Count 2.96 M/UL (4.70-6.10) L Hemoglobin 9.5 G/DL (14.2-18.0) L Hematocrit 29.8 % (42.0-52.0) L Mean Corpuscular Volume 101 FL (80-99) H Mean Corpuscular Hemoglobin 32.2 PG (27.0-31.0) H Mean Corpuscular Hemoglobin Concent 32.0 G/DL (32.0-36.0) Red Cell Distribution Width 12.1 % (11.6-14.8) Platelet Count 124 K/UL (150-450) L Mean Platelet Volume 7.6 FL (6.5-10.1) Neutrophils (%) (Auto) % (45.0-75.0) Lymphocytes (%) (Auto) % (20.0-45.0) Monocytes (%) (Auto) % (1.0-10.0) Eosinophils (%) (Auto) % (0.0-3.0) Basophils (%) (Auto) % (0.0-2.0) Differential Total Cells Counted 100 Neutrophils % (Manual) 94 % (45-75) H Lymphocytes % (Manual) 2 % (20-45) L Monocytes % (Manual) 4 % (1-10) Eosinophils % (Manual) 0 % (0-3) Basophils % (Manual) 0 % (0-2) Band Neutrophils 0 % (0-8) Platelet Estimate Decreased L Platelet Morphology Normal Hypochromasia 1+ Macrocytosis 1+ Prothrombin Time 10.5 SEC (9.30-11.50) Prothromb Time International Ratio 0.9 (0.9-1.1) Activated Partial Thromboplast Time 26 SEC (23-33) Sodium Level 140 MMOL/L (136-145) Potassium Level 5.0 MMOL/L (3.5-5.1) Chloride Level 105 MMOL/L (98-107) Carbon Dioxide Level 33 MMOL/L (21-32) H Anion Gap 3 mmol/L (5-15) L Blood Urea Nitrogen 129 mg/dL (7-18) H Creatinine 4.2 MG/DL (0.55-1.30) H Estimat Glomerular Filtration Rate 14.3 mL/min (>60) Glucose Level 349 MG/DL (74-106) H Calcium Level 7.6 MG/DL (8.5-10.1) L Phosphorus Level 5.1 MG/DL (2.5-4.9) H Magnesium Level 3.4 MG/DL (1.8-2.4) H Total Bilirubin 0.1 MG/DL (0.2-1.0) L Gamma Glutamyl Transpeptidase 175 U/L (5-85) H Aspartate Amino Transf (AST/SGOT) 249 U/L (15-37) H Alanine Aminotransferase (ALT/SGPT) 96 U/L (12-78) H Alkaline Phosphatase 121 U/L (46-116) H C-Reactive Protein, Quantitative 4.0 mg/dL (0.00-0.90) H Total Protein 4.5 G/DL (6.4-8.2) L Albumin 1.5 G/DL (3.4-5.0) L Globulin 3.0 g/dL Albumin/Globulin Ratio 0.5 (1.0-2.7) L Arterial Blood pH 7.256 (7.350-7.450) Arterial Blood Partial Pressure CO2 74.0 mmHg (35.0-45.0) *H Arterial Blood Partial Pressure O2 73.0 mmHg (75.0-100.0) L Arterial Blood HCO3 32.2 mmol/L (22.0-26.0) H Arterial Blood Oxygen Saturation 93.9 % (95-100) L Arterial Blood Base Excess 3.5 (-2-2) H Mehdi Test Positive Plan Problems: (1) Hypoxia (2) Bilateral pneumonia (3) Acute respiratory failure with hypoxia Assessment & Plan: ards covid negative as per pulm id input appreciated abd pain likely cramping indigestion from ill ness ppi ordered okay for diet monitor intake am labs will follow with exam and recs acute decline intubated in ICU on vent liver insufficiency acute hepatic in sufficiency renal insufficiency no acute surgical intervention needs resuscitation meds reviewed (4) Bradycardia (5) Malnutrition Assessment & Plan: DAILY ESTIMATED NEEDS: Needs based on [facility] 64.5kg abw 22-28 kcals/kg 4606-1977 total kcals 1.2-2 g protein/kg 77-129 g total protein 25-30 mL/kg 4372-0177 total fluid mLs NUTRITION DIAGNOSIS: Altered nutrition related lab values related to clinical status as evidenced by elev LD(665), elev WBC(trending down 17.7), elev BG(132-176), elevated lytes(K, phos, mg), elev renal labs (BUN73, creat 3.2), elev LFT's ENTERAL NUTRITION RECOMMENDATIONS: As medically able, rec non oral feeds: NEPRO @35ml/hr x24 hrs to provide 840ml, 1512 kcal, 68g pro, 611ml free H2O - With hemodynamic stability, rec OGt feeds to meet est needs. - Start Nepro @15ml/hr for 6 hrs, advance as tolerated 10ml/hr q4-6 hrs to goal - Flush per MD. HOB over 30 degrees - When tolerating TF at goal, add Prosource 1 pack daily to better meet est pro needs. ADDITIONAL RECOMMENDATIONS: 1) recalibrate bed scale wt for accurate CBW 2) Monitor BG, need for NISS 3) TF recs as above when stable for feeds . (6) Shock liver Assessment & Plan: worsening lft's likely hydration resuscitation trend labs improving (7) ERIKA (acute kidney injury) Vern Quevedo Aug 11, 2020 11:38
[2020-08-11] MEDS ORDERED: Heparin1,000 units/500ml Premix(Conc:2 units/ml) IV PRN (12:24)
[2020-08-11] MEDS ORDERED: Lidocaine 1% Plain 30 ml INJ PRN (12:24)
--- NOTE | 2020-08-11 13:38 | NUR ---
NURSE NOTES: Dr. Hannah made aware patient PICC line was 7cm on the day of insertion, now at 14cm. Per MD refer to ID Doctor, no new order received at this time, Will continue to monitor. Paged Dr. Cheek regarding PICC line, awaiting for callback.
--- NOTE | 2020-08-11 14:15 | Cardiac Electrophysiology PN ---
Assessment/Plan Assessment/Plan 1. Bradycardia off any sinus-galen or AV-galen blocking agents. Resolved. Tolerating Cardizem Echocardiogram EF 60% 2. Atral fib with RVR. Now off Cardizem drip. On Cardizem 120 tid. Can't use Amiodarone for shock liver that is improving 3. Respiratory failure due to Covid PNA intubated on 100% Fio2 and PEEP 8 4. Acute renal failure with BUN/Cr 129/4.2 Getting Right IJ Kevin today 5. Shock Liver with AST and ALT >1100. Better now 6. Sepsis. White count 21,000 on IV antibiotic per Dr. Antonio. DW RN Subjective Subjective In ICU intubated on 100% Fio2 and PEEP 8. Had atrial fib with RVR and started on Cardizem drip that was DCed EF 60%. On Cardizem 120 tid. Getting Right IJ Kevin by Radiology at bedside in ICU Objective Last 24 Hour Vital Signs Date Time Temp Pulse Resp B/P (MAP) Pulse Ox O2 Delivery O2 Flow Rate FiO2 08/11/20 13:00 101 17 118/67 (84) 98 08/11/20 12:00 99 08/11/20 12:00 100 08/11/20 12:00 Mechanical Ventilator 08/11/20 12:00 97.8 95 19 120/64 (82) 98 08/11/20 11:40 104 16 100 08/11/20 11:00 94 18 102/53 (69) 98 08/11/20 10:00 99 16 92/43 (59) 96 08/11/20 09:00 98 16 109/56 (73) 98 08/11/20 08:00 100 08/11/20 08:00 Mechanical Ventilator 08/11/20 08:00 96 08/11/20 08:00 99.8 97 16 110/55 (73) 98 08/11/20 07:02 99 16 100 08/11/20 07:00 98 16 104/54 (71) 98 08/11/20 06:00 98 16 104/50 (68) 97 08/11/20 05:58 98 97/45 08/11/20 05:15 100 17 97/45 (62) 97 08/11/20 05:00 100 17 87/36 (53) 97 08/11/20 04:00 96 08/11/20 04:00 99.7 96 16 96/49 (65) 99 08/11/20 04:00 100 08/11/20 04:00 Mechanical Ventilator 08/11/20 03:04 102 18 100 08/11/20 03:00 105 19 103/58 (73) 95 08/11/20 02:00 98 19 102/50 (67) 98 08/11/20 01:00 97 19 109/55 (73) 97 08/11/20 00:35 100.2 08/11/20 00:30 100.2 97 19 107/54 (71) 96 08/11/20 00:00 100 08/11/20 00:00 100 08/11/20 00:00 Mechanical Ventilator 08/11/20 00:00 100.9 100 19 104/54 (71) 96 08/10/20 23:09 98 19 100 08/10/20 23:00 97 18 118/67 (84) 98 08/10/20 22:00 96 19 113/62 (79) 97 08/10/20 21:59 97 96/48 08/10/20 21:30 97 19 96/48 (64) 96 08/10/20 21:00 97 17 103/50 (67) 96 08/10/20 20:00 99.2 98 18 109/60 (76) 98 08/10/20 20:00 Mechanical Ventilator 08/10/20 20:00 100 08/10/20 19:11 98 18 100 08/10/20 19:11 101 08/10/20 19:00 105 17 122/66 (84) 98 08/10/20 18:00 101 17 102/52 (69) 91 08/10/20 17:00 99 18 109/58 (75) 90 08/10/20 16:00 Mechanical Ventilator 08/10/20 16:00 100.1 96 19 107/56 (73) 90 08/10/20 16:00 100 08/10/20 15:57 96 08/10/20 15:06 97 16 90 08/10/20 15:00 96 16 137/75 (95) 95 Intake and Output 08/10/20 08/11/20 19:00 07:00 Intake Total 1565 ml 1740 ml Output Total 830 ml 540 ml Balance 735 ml 1200 ml Free Water 190 ml IV Total 955 ml 1200 ml Tube Feeding 420 ml 420 ml Other 120 ml Output Urine Total 830 ml 540 ml Laboratory Tests Test 08/11/20 04:38 08/11/20 09:51 White Blood Count 22.5 K/UL (4.8-10.8) *H Red Blood Count 2.96 M/UL (4.70-6.10) L Hemoglobin 9.5 G/DL (14.2-18.0) L Hematocrit 29.8 % (42.0-52.0) L Mean Corpuscular Volume 101 FL (80-99) H Mean Corpuscular Hemoglobin 32.2 PG (27.0-31.0) H Mean Corpuscular Hemoglobin Concent 32.0 G/DL (32.0-36.0) Red Cell Distribution Width 12.1 % (11.6-14.8) Platelet Count 124 K/UL (150-450) L Mean Platelet Volume 7.6 FL (6.5-10.1) Neutrophils (%) (Auto) % (45.0-75.0) Lymphocytes (%) (Auto) % (20.0-45.0) Monocytes (%) (Auto) % (1.0-10.0) Eosinophils (%) (Auto) % (0.0-3.0) Basophils (%) (Auto) % (0.0-2.0) Differential Total Cells Counted 100 Neutrophils % (Manual) 94 % (45-75) H Lymphocytes % (Manual) 2 % (20-45) L Monocytes % (Manual) 4 % (1-10) Eosinophils % (Manual) 0 % (0-3) Basophils % (Manual) 0 % (0-2) Band Neutrophils 0 % (0-8) Platelet Estimate Decreased L Platelet Morphology Normal Hypochromasia 1+ Macrocytosis 1+ Prothrombin Time 10.5 SEC (9.30-11.50) Prothromb Time International Ratio 0.9 (0.9-1.1) Activated Partial Thromboplast Time 26 SEC (23-33) Sodium Level 140 MMOL/L (136-145) Potassium Level 5.0 MMOL/L (3.5-5.1) Chloride Level 105 MMOL/L (98-107) Carbon Dioxide Level 33 MMOL/L (21-32) H Anion Gap 3 mmol/L (5-15) L Blood Urea Nitrogen 129 mg/dL (7-18) H Creatinine 4.2 MG/DL (0.55-1.30) H Estimat Glomerular Filtration Rate 14.3 mL/min (>60) Glucose Level 349 MG/DL (74-106) H Calcium Level 7.6 MG/DL (8.5-10.1) L Phosphorus Level 5.1 MG/DL (2.5-4.9) H Magnesium Level 3.4 MG/DL (1.8-2.4) H Total Bilirubin 0.1 MG/DL (0.2-1.0) L Gamma Glutamyl Transpeptidase 175 U/L (5-85) H Aspartate Amino Transf (AST/SGOT) 249 U/L (15-37) H Alanine Aminotransferase (ALT/SGPT) 96 U/L (12-78) H Alkaline Phosphatase 121 U/L (46-116) H C-Reactive Protein, Quantitative 4.0 mg/dL (0.00-0.90) H Total Protein 4.5 G/DL (6.4-8.2) L Albumin 1.5 G/DL (3.4-5.0) L Globulin 3.0 g/dL Albumin/Globulin Ratio 0.5 (1.0-2.7) L Arterial Blood pH 7.256 (7.350-7.450) Arterial Blood Partial Pressure CO2 74.0 mmHg (35.0-45.0) *H Arterial Blood Partial Pressure O2 73.0 mmHg (75.0-100.0) L Arterial Blood HCO3 32.2 mmol/L (22.0-26.0) H Arterial Blood Oxygen Saturation 93.9 % (95-100) L Arterial Blood Base Excess 3.5 (-2-2) H Mehdi Test Positive Objective HEAD AND NECK: Showed no JVD. LUNGS: Clear. CARDIOVASCULAR: Shows regular S1 and S2 with no gallop. ABDOMEN: Soft. EXTREMITIES: No pitting edema. Navjot Bains MD Aug 11, 2020 14:15
--- NOTE | 2020-08-11 15:08 | NUR ---
NURSE NOTES: Per Family member, Vanessa and Amanda, would like to transfer patient to [facility]. Primary MD and case making machine operator made aware.
--- NOTE | 2020-08-11 15:21 | Brief Operative Note ---
Immediate Post Operative Note Operative Note Pre-op Diagnosis: renal failure Procedure: R JJ Brown Post-op Diagnosis: same as pre-op Surgeon: Gerardo Nation Anesthesia: local Specimen: none Complications: none Fluids: none Implant(s) used?: No Diego Nation MD Aug 11, 2020 15:21
--- NOTE | 2020-08-11 15:28 | Diagnostic Imaging Report ---
Indication: Acute renal failure Technique: Procedure performed at bedside. Procedural timeout performed. Total sterile technique, including sterile probe cover and sterile gel, sterile gloves, hand hygiene, hat, mask, sterile gown, large sterile drape, and preparation with 2% chlorhexidine utilized. Local anesthesia with 1% lidocaine. Ultrasound reveals patent compressible right internal jugular vein. Under real-time ultrasound guidance with real-time visualization of the entry into the vein, puncture right internal jugular vein using 21-gauge micropuncture needle, passage 0.018 guidewire, insertion 4 [place] micropuncture introducer, passage 0.035 guidewire, over which was passed serial dilators and then a 12 [place] 15 cm triple-lumen temporary dialysis catheter. Guidewire was removed. Catheter ports were aspirated and flushed. The catheter was fixed to the skin. Patient tolerated procedure well. A chest x-ray was obtained, documents catheter tip position at the cavoatrial junction. Comparison: Radiograph compared to 08/06/2020 Findings: As above. Radiograph demonstrates stable tube and line positions, and unchanged bilateral infiltrates Impression: Successful bedside placement of right transjugular temporary dialysis catheter, as described.
--- NOTE | 2020-08-11 15:50 | NUR ---
NURSE NOTES: HD nurse, Ludwin at the bedside, initiating HD at this time, no active s/s hemodynamic at this time, Will continue to monitor.
--- NOTE | 2020-08-11 16:44 | NUR ---
NURSE NOTES: Dr. Villanueva made aware patient unable to tolerate CT Head yesterday, no new order received at this time.
--- NOTE | 2020-08-11 16:45 | NUR ---
NURSE NOTES: Per Dr. Villanueva, order EEG. Order noted, entered, carried out. Will continue to monitor.
--- NOTE | 2020-08-11 16:49 | NUR ---
NURSE NOTES: Spoke with Juan regarding EEG ordered per Dr. Villanueva.
--- NOTE | 2020-08-11 17:26 | Neurology Progress Note ---
Interim History Interim History ROS Limited/Unobtainable: Yes Interim History Prolonged admission, intubated sedated 64-year-old male, who presents with increased shortness of breath for about 10 days, admits to positive COVID exposure with family, came to [place] diagnosed as above, was diagnosed with also pneumonia and hypoxia Started HD Review of Systems Neuro Review of Systems cc 35 min Objective Physical Exam Last Vital Signs Date Time Temp Pulse Resp B/P (MAP) Pulse Ox O2 Delivery O2 Flow Rate FiO2 08/11/20 16:59 88/38 08/11/20 16:00 97 08/11/20 16:00 99.2 17 97 08/11/20 16:00 Mechanical Ventilator 08/11/20 16:00 100 08/04/20 19:00 100.0 Laboratory Tests Test 08/11/20 04:38 08/11/20 09:51 White Blood Count 22.5 K/UL (4.8-10.8) *H Red Blood Count 2.96 M/UL (4.70-6.10) L Hemoglobin 9.5 G/DL (14.2-18.0) L Hematocrit 29.8 % (42.0-52.0) L Mean Corpuscular Volume 101 FL (80-99) H Mean Corpuscular Hemoglobin 32.2 PG (27.0-31.0) H Mean Corpuscular Hemoglobin Concent 32.0 G/DL (32.0-36.0) Red Cell Distribution Width 12.1 % (11.6-14.8) Platelet Count 124 K/UL (150-450) L Mean Platelet Volume 7.6 FL (6.5-10.1) Neutrophils (%) (Auto) % (45.0-75.0) Lymphocytes (%) (Auto) % (20.0-45.0) Monocytes (%) (Auto) % (1.0-10.0) Eosinophils (%) (Auto) % (0.0-3.0) Basophils (%) (Auto) % (0.0-2.0) Differential Total Cells Counted 100 Neutrophils % (Manual) 94 % (45-75) H Lymphocytes % (Manual) 2 % (20-45) L Monocytes % (Manual) 4 % (1-10) Eosinophils % (Manual) 0 % (0-3) Basophils % (Manual) 0 % (0-2) Band Neutrophils 0 % (0-8) Platelet Estimate Decreased L Platelet Morphology Normal Hypochromasia 1+ Macrocytosis 1+ Prothrombin Time 10.5 SEC (9.30-11.50) Prothromb Time International Ratio 0.9 (0.9-1.1) Activated Partial Thromboplast Time 26 SEC (23-33) Sodium Level 140 MMOL/L (136-145) Potassium Level 5.0 MMOL/L (3.5-5.1) Chloride Level 105 MMOL/L (98-107) Carbon Dioxide Level 33 MMOL/L (21-32) H Anion Gap 3 mmol/L (5-15) L Blood Urea Nitrogen 129 mg/dL (7-18) H Creatinine 4.2 MG/DL (0.55-1.30) H Estimat Glomerular Filtration Rate 14.3 mL/min (>60) Glucose Level 349 MG/DL (74-106) H Calcium Level 7.6 MG/DL (8.5-10.1) L Phosphorus Level 5.1 MG/DL (2.5-4.9) H Magnesium Level 3.4 MG/DL (1.8-2.4) H Total Bilirubin 0.1 MG/DL (0.2-1.0) L Gamma Glutamyl Transpeptidase 175 U/L (5-85) H Aspartate Amino Transf (AST/SGOT) 249 U/L (15-37) H Alanine Aminotransferase (ALT/SGPT) 96 U/L (12-78) H Alkaline Phosphatase 121 U/L (46-116) H C-Reactive Protein, Quantitative 4.0 mg/dL (0.00-0.90) H Total Protein 4.5 G/DL (6.4-8.2) L Albumin 1.5 G/DL (3.4-5.0) L Globulin 3.0 g/dL Albumin/Globulin Ratio 0.5 (1.0-2.7) L Arterial Blood pH 7.256 (7.350-7.450) Arterial Blood Partial Pressure CO2 74.0 mmHg (35.0-45.0) *H Arterial Blood Partial Pressure O2 73.0 mmHg (75.0-100.0) L Arterial Blood HCO3 32.2 mmol/L (22.0-26.0) H Arterial Blood Oxygen Saturation 93.9 % (95-100) L Arterial Blood Base Excess 3.5 (-2-2) H Mehdi Test Positive Neurologic Exam Objective intubated, sedated per nurse earlier pupils reactive, no movement to pain Impression/Recommendations Problems: (1) Hypoxia (2) Bilateral pneumonia (3) Acute respiratory failure with hypoxia (4) Bradycardia (5) Malnutrition (6) Shock liver (7) ERIKA (acute kidney injury) (8) Diabetes mellitus out of control Status: progressing, unchanged Diagnostic Impression Prolonged admission with septic shock, resp failure, now kidney failure on HD LFTs worsening ro anoxic brain injury icu level map > 65 prognosis is poor EEG ordered CT brain if stable to go down Gabriel Villanueva MD Aug 11, 2020 17:26
--- NOTE | 2020-08-11 17:27 | Consultation ---
History of Present Illness General Date patient seen: Aug 10, 2020 Chief Complaint: Dyspnea/Respdistress Reason for Consultation: ams Present Illness HPI Prolonged admission, intubated sedated 64-year-old male, who presents with increased shortness of breath for about 10 days, admits to positive COVID exposure with family, came to [facility] diagnosed as above, was diagnosed with also pneumonia and hypoxia Started HD Allergies: Coded Allergies: No Known Allergies (Unverified , 07/29/20) Medication History Scheduled Ascorbic Acid* (Vitamin C*), Unknown Dose ORAL DAILY, (Reported) Azithromycin* (Zithromax*), 250 MG ORAL DAILY, (Reported) Prednisone* (Prednisone*), 10 MG ORAL DAILY, (Reported) Miscellaneous Medications Guaifenesin/Dextromethorphan (Siltussin Dm Cough Syrup), Unknown Dose PO, (Reported) Vit A Acet/Vit C/Znox/Propolis (Zinc Lozenges), 1 EACH ORAL, (Reported) Patient History Healthcare decision maker Resuscitation status Advanced Directive on File Physical Exam Last 24 Hour Vital Signs Date Time Temp Pulse Resp B/P (MAP) Pulse Ox O2 Delivery O2 Flow Rate FiO2 08/11/20 16:59 88/38 08/11/20 16:00 97 08/11/20 16:00 99.2 92 17 92/40 (57) 97 08/11/20 16:00 Mechanical Ventilator 08/11/20 16:00 100 08/11/20 15:00 96 17 109/60 (76) 97 08/11/20 14:00 93 18 112/62 (79) 97 08/11/20 13:20 92 17 100 08/11/20 13:00 101 17 118/67 (84) 98 08/11/20 12:00 99 08/11/20 12:00 100 08/11/20 12:00 Mechanical Ventilator 08/11/20 12:00 97.8 95 19 120/64 (82) 98 08/11/20 11:40 104 16 100 08/11/20 11:00 94 18 102/53 (69) 98 08/11/20 10:00 99 16 92/43 (59) 96 08/11/20 09:00 98 16 109/56 (73) 98 08/11/20 08:00 100 08/11/20 08:00 Mechanical Ventilator 08/11/20 08:00 96 08/11/20 08:00 99.8 97 16 110/55 (73) 98 08/11/20 07:02 99 16 100 08/11/20 07:00 98 16 104/54 (71) 98 08/11/20 06:00 98 16 104/50 (68) 97 08/11/20 05:58 98 97/45 08/11/20 05:15 100 17 97/45 (62) 97 08/11/20 05:00 100 17 87/36 (53) 97 08/11/20 04:00 96 08/11/20 04:00 99.7 96 16 96/49 (65) 99 08/11/20 04:00 100 08/11/20 04:00 Mechanical Ventilator 08/11/20 03:04 102 18 100 08/11/20 03:00 105 19 103/58 (73) 95 08/11/20 02:00 98 19 102/50 (67) 98 08/11/20 01:00 97 19 109/55 (73) 97 08/11/20 00:35 100.2 08/11/20 00:30 100.2 97 19 107/54 (71) 96 08/11/20 00:00 100 08/11/20 00:00 100 08/11/20 00:00 Mechanical Ventilator 08/11/20 00:00 100.9 100 19 104/54 (71) 96 08/10/20 23:09 98 19 100 08/10/20 23:00 97 18 118/67 (84) 98 08/10/20 22:00 96 19 113/62 (79) 97 08/10/20 21:59 97 96/48 08/10/20 21:30 97 19 96/48 (64) 96 08/10/20 21:00 97 17 103/50 (67) 96 08/10/20 20:00 99.2 98 18 109/60 (76) 98 08/10/20 20:00 Mechanical Ventilator 08/10/20 20:00 100 08/10/20 19:11 98 18 100 08/10/20 19:11 101 08/10/20 19:00 105 17 122/66 (84) 98 08/10/20 18:00 101 17 102/52 (69) 91 Intake and Output 08/10/20 08/11/20 19:00 07:00 Intake Total 1565 ml 1740 ml Output Total 830 ml 540 ml Balance 735 ml 1200 ml Free Water 190 ml IV Total 955 ml 1200 ml Tube Feeding 420 ml 420 ml Other 120 ml Output Urine Total 830 ml 540 ml Laboratory Tests Test 08/11/20 04:38 08/11/20 09:51 White Blood Count 22.5 K/UL (4.8-10.8) *H Red Blood Count 2.96 M/UL (4.70-6.10) L Hemoglobin 9.5 G/DL (14.2-18.0) L Hematocrit 29.8 % (42.0-52.0) L Mean Corpuscular Volume 101 FL (80-99) H Mean Corpuscular Hemoglobin 32.2 PG (27.0-31.0) H Mean Corpuscular Hemoglobin Concent 32.0 G/DL (32.0-36.0) Red Cell Distribution Width 12.1 % (11.6-14.8) Platelet Count 124 K/UL (150-450) L Mean Platelet Volume 7.6 FL (6.5-10.1) Neutrophils (%) (Auto) % (45.0-75.0) Lymphocytes (%) (Auto) % (20.0-45.0) Monocytes (%) (Auto) % (1.0-10.0) Eosinophils (%) (Auto) % (0.0-3.0) Basophils (%) (Auto) % (0.0-2.0) Differential Total Cells Counted 100 Neutrophils % (Manual) 94 % (45-75) H Lymphocytes % (Manual) 2 % (20-45) L Monocytes % (Manual) 4 % (1-10) Eosinophils % (Manual) 0 % (0-3) Basophils % (Manual) 0 % (0-2) Band Neutrophils 0 % (0-8) Platelet Estimate Decreased L Platelet Morphology Normal Hypochromasia 1+ Macrocytosis 1+ Prothrombin Time 10.5 SEC (9.30-11.50) Prothromb Time International Ratio 0.9 (0.9-1.1) Activated Partial Thromboplast Time 26 SEC (23-33) Sodium Level 140 MMOL/L (136-145) Potassium Level 5.0 MMOL/L (3.5-5.1) Chloride Level 105 MMOL/L (98-107) Carbon Dioxide Level 33 MMOL/L (21-32) H Anion Gap 3 mmol/L (5-15) L Blood Urea Nitrogen 129 mg/dL (7-18) H Creatinine 4.2 MG/DL (0.55-1.30) H Estimat Glomerular Filtration Rate 14.3 mL/min (>60) Glucose Level 349 MG/DL (74-106) H Calcium Level 7.6 MG/DL (8.5-10.1) L Phosphorus Level 5.1 MG/DL (2.5-4.9) H Magnesium Level 3.4 MG/DL (1.8-2.4) H Total Bilirubin 0.1 MG/DL (0.2-1.0) L Gamma Glutamyl Transpeptidase 175 U/L (5-85) H Aspartate Amino Transf (AST/SGOT) 249 U/L (15-37) H Alanine Aminotransferase (ALT/SGPT) 96 U/L (12-78) H Alkaline Phosphatase 121 U/L (46-116) H C-Reactive Protein, Quantitative 4.0 mg/dL (0.00-0.90) H Total Protein 4.5 G/DL (6.4-8.2) L Albumin 1.5 G/DL (3.4-5.0) L Globulin 3.0 g/dL Albumin/Globulin Ratio 0.5 (1.0-2.7) L Arterial Blood pH 7.256 (7.350-7.450) Arterial Blood Partial Pressure CO2 74.0 mmHg (35.0-45.0) *H Arterial Blood Partial Pressure O2 73.0 mmHg (75.0-100.0) L Arterial Blood HCO3 32.2 mmol/L (22.0-26.0) H Arterial Blood Oxygen Saturation 93.9 % (95-100) L Arterial Blood Base Excess 3.5 (-2-2) H Mehdi Test Positive Height (Feet): 5 Height (Inches): 5.00 Weight (Pounds): 160 Medications Current Medications Medications (Trade) Dose Ordered Sig/Fabiano Route PRN Reason Start Time Stop Time Status Last Admin Dose Admin Acetaminophen (Tylenol) 650 mg Q4H PRN NG Temp >100.5 08/03/20 04:15 09/02/20 04:14 08/11/20 00:05 Acetaminophen (Tylenol) 650 mg Q4H PRN RECTAL Temp >100.5 08/01/20 20:30 08/31/20 20:29 08/02/20 10:28 Albumin Human 50 ml @ 50 mls/hr ONCE IV 08/11/20 16:15 08/11/20 18:00 08/11/20 16:07 Albuterol Sulfate (Proventil MDI) 2 puff Q4H PRN INH Shortness of Breath 07/29/20 22:45 10/27/20 22:44 Ceftriaxone Sodium 1 gm/ Dextrose 55 ml @ 110 mls/hr Q24H IVPB 08/07/20 10:00 08/14/20 09:59 08/11/20 10:30 Cetylpyridinium Chloride (Cepacol) 1 lozg Q2H PRN [place] For Cough 07/30/20 21:00 10/28/20 20:59 08/01/20 08:47 Chlorhexidine Gluconate (Marisela-Hex 2%) 1 applic DAILY@2000 TOPIC 08/08/20 20:00 11/06/20 19:59 08/10/20 19:50 Clonidine HCl (Catapres Tab) 0.1 mg Q2H PRN ORAL SBP > 170mmHg 08/04/20 09:45 11/02/20 09:44 08/07/20 23:20 Dextrose 1,000 ml @ 100 mls/hr Q10H IV 08/06/20 12:15 09/05/20 12:14 08/11/20 11:37 Dextrose (Dextrose 50%) 25 ml Q30M PRN IV Hypoglycemia 08/10/20 12:15 11/08/20 12:14 Dextrose (Dextrose 50%) 50 ml Q30M PRN IV Hypoglycemia 08/10/20 12:15 11/08/20 12:14 Diltiazem HCl (Cardizem Tab) 120 mg Q8HR GT 08/08/20 22:00 09/07/20 21:59 08/09/20 14:22 Docusate Sodium (Colace) 100 mg Q12HR GT 08/08/20 21:00 09/07/20 20:59 08/11/20 08:42 Enoxaparin Sodium (Lovenox) 30 mg DAILY SUBQ 08/02/20 10:00 10/31/20 09:59 08/10/20 08:55 Guaifenesin/ Dextromethorphan (Robitussin DM Syrup) 15 ml Q6H PRN ORAL For Cough 07/31/20 08:30 10/29/20 08:29 08/01/20 08:47 Heparin Sodium/ Sodium Chloride (Heparin 1000 units/500ml Premix) 1,000 unit ONCE PRN IV PROCEDURE 08/11/20 12:24 08/11/20 23:59 Insulin Aspart (NovoLOG) Q6HR SUBQ 08/06/20 12:00 11/04/20 11:59 08/11/20 12:12 Insulin Aspart (NovoLOG) 16 units EVERY 6 HOURS SUBQ 08/11/20 12:00 11/08/20 17:59 08/11/20 12:13 Insulin Detemir (Levemir) 30 units Q12HR SUBQ 08/10/20 21:00 11/04/20 20:59 08/11/20 09:13 Lidocaine HCl (Xylocaine 1% 30ml) 30 ml ONCE PRN INJ PROCEDURE 08/11/20 12:24 08/11/20 23:59 Methylprednisolone Sodium Succinate (Solu-MEDROL) 40 mg EVERY 12 HOURS IVP 08/04/20 12:30 11/02/20 12:29 08/11/20 08:42 Norepinephrine Bitartrate 4 mg/ Sodium Chloride 250 ml @ 0 mls/hr Q24H PRN IV For hypotension 08/08/20 17:15 08/17/20 19:00 08/11/20 16:59 Pantoprazole (Protonix) 40 mg DAILY IVP 08/06/20 10:00 09/05/20 09:59 08/11/20 08:42 Polyethylene Glycol (Miralax) 17 gm BEDTIME ORAL 08/06/20 21:00 09/05/20 20:59 08/10/20 20:50 Vitamin D (Vitamin D) 5,000 unit DAILY GT 08/11/20 10:15 09/10/20 10:14 08/11/20 10:30 Assessment/Plan Problem List: (1) Hypoxia ICD Codes: R09.02 - Hypoxemia SNOMED: 508628501 (2) Bilateral pneumonia ICD Codes: J18.9 - Pneumonia, unspecified organism SNOMED: 186990288, 038454095 (3) Acute respiratory failure with hypoxia ICD Codes: J96.01 - Acute respiratory failure with hypoxia SNOMED: 39778514, 764609536 (4) Bradycardia ICD Codes: R00.1 - Bradycardia, unspecified SNOMED: 59857245 (5) Malnutrition ICD Codes: E46 - Unspecified protein-calorie malnutrition SNOMED: 99368980 (6) Shock liver ICD Codes: K72.00 - Acute and subacute hepatic failure without coma SNOMED: 426107522 (7) ERIKA (acute kidney injury) ICD Codes: N17.9 - Acute kidney failure, unspecified SNOMED: 1717880, 43855176 (8) Diabetes mellitus out of control ICD Codes: E11.65 - Type 2 diabetes mellitus with hyperglycemia SNOMED: 31063579, 049242185 Gabriel Villanueva MD Aug 11, 2020 17:27
[2020-08-11] MEDS ORDERED: LR 1000ml ONE (18:05)
[2020-08-11] MEDS ORDERED: NS 275ml ONE (18:05)
[2020-08-11] MEDS ORDERED: Tubing IV Secondary IV ONE (18:05)
--- NOTE | 2020-08-11 19:05 | NUR ---
NURSE HAND-OFF REPORT: Latest Vital Signs: Temperature 99.2 , Pulse 101 , B/P 143 /63 , Respiratory Rate 20 , O2 SAT 97 , Mechanical Ventilator, O2 Flow Rate . Vital Sign Comment: low BP during HD, Levophed initiated, mild temp. EKG Rhythm: Sinus Rhythm Rhythm change?: N Notified?: Moi Guzman MD Response: Latest Orozco Fall Score: 70 Fall Risk: High Risk Safety Measures: Call light Within Reach, Bed Alarm Zone 1, Side Rails Side Rails x2, Bed position Low and Locked. Fall Precautions: Yellow Socks Door Sign Patient Fall Education Report given to CARLOS Cowart.
[2020-08-11] MEDS: Dyna-Hex 2% Top Sol 2oz TOPIC SCH (19:34)
--- NOTE | 2020-08-11 19:56 | NUR ---
NURSE NOTES: PATIENT OBTUNDED, ON ETT TO VENT, O2 SATURATION 92% ON VENT AC 16/TV550/FIO2 100%/PEEP8, HR 100'S/MIN ST, OGT INTACT AND PATENT, ONGOING NEPRO AT 35ML/HR, NO RESIDUE NOTED, KEPT HOB 30 DEGREES AND ASPIRATION PRECAUTION, ABDOMEN DISTENDED, NO BM STATUS, F/C INTACT AND PATENT, DARK YELLOW URINE OUTED, CHERELLE W/PIG TAIL TO RIGHT IJ, INTACT AND PATENT, ONGOING IV FLUID D5%W AT 100ML/HR AND LEVOPHED 2MCG/MIN STATUS, ON P200 BED, MADE LOWER BED POSITION, ON BED ALARM AND LOCKED, WILL CONTINUE TO MONITOR.
--- NOTE | 2020-08-11 20:30 | NUR ---
NURSE NOTES: LE: FAMILY MEMBERS (PT'S SON, [id number] AND BROTHER) VISITED, SEEN THE PATIENT PER [facility]OSPITAL [facility]OTOCOLS.
[2020-08-11] MEDS: Miralax 17gm pkt ORAL SCH (20:31)
--- NOTE | 2020-08-11 22:02 | General Progress Note ---
Subjective ROS Limited/Unobtainable: Yes Allergies: Coded Allergies: No Known Allergies (Unverified , 07/29/20) Objective Last 24 Hour Vital Signs Date Time Temp Pulse Resp B/P (MAP) Pulse Ox O2 Delivery O2 Flow Rate FiO2 08/11/20 21:30 100 20 127/67 (87) 92 08/11/20 21:00 124/63 08/11/20 21:00 99 20 124/63 (83) 93 08/11/20 20:30 100 20 145/76 (99) 94 08/11/20 20:00 100 08/11/20 20:00 134/70 08/11/20 20:00 99.0 100 20 134/70 (91) 92 08/11/20 20:00 Mechanical Ventilator 08/11/20 19:30 96 19 129/66 (87) 94 08/11/20 19:20 97 19 90 08/11/20 19:00 101 20 143/63 (89) 97 08/11/20 19:00 143/73 08/11/20 18:00 93 19 128/69 (88) 99 08/11/20 18:00 128/69 08/11/20 17:15 93 18 117/58 (77) 97 08/11/20 17:00 92 17 88/45 (59) 96 08/11/20 17:00 97/48 08/11/20 16:59 88/38 08/11/20 16:00 97 08/11/20 16:00 99.2 92 17 92/40 (57) 97 08/11/20 16:00 Mechanical Ventilator 08/11/20 16:00 100 08/11/20 15:00 96 17 109/60 (76) 97 08/11/20 14:00 93 18 112/62 (79) 97 08/11/20 13:20 92 17 100 08/11/20 13:00 101 17 118/67 (84) 98 08/11/20 12:00 99 08/11/20 12:00 100 08/11/20 12:00 Mechanical Ventilator 08/11/20 12:00 97.8 95 19 120/64 (82) 98 08/11/20 11:40 104 16 100 08/11/20 11:00 94 18 102/53 (69) 98 08/11/20 10:00 99 16 92/43 (59) 96 08/11/20 09:00 98 16 109/56 (73) 98 08/11/20 08:00 100 08/11/20 08:00 Mechanical Ventilator 08/11/20 08:00 96 08/11/20 08:00 99.8 97 16 110/55 (73) 98 08/11/20 07:02 99 16 100 08/11/20 07:00 98 16 104/54 (71) 98 08/11/20 06:00 98 16 104/50 (68) 97 08/11/20 05:58 98 97/45 08/11/20 05:15 100 17 97/45 (62) 97 08/11/20 05:00 100 17 87/36 (53) 97 08/11/20 04:00 96 08/11/20 04:00 99.7 96 16 96/49 (65) 99 08/11/20 04:00 100 08/11/20 04:00 Mechanical Ventilator 08/11/20 03:04 102 18 100 08/11/20 03:00 105 19 103/58 (73) 95 08/11/20 02:00 98 19 102/50 (67) 98 08/11/20 01:00 97 19 109/55 (73) 97 08/11/20 00:35 100.2 08/11/20 00:30 100.2 97 19 107/54 (71) 96 08/11/20 00:00 100 08/11/20 00:00 100 08/11/20 00:00 Mechanical Ventilator 08/11/20 00:00 100.9 100 19 104/54 (71) 96 08/10/20 23:09 98 19 100 08/10/20 23:00 97 18 118/67 (84) 98 08/10/20 22:00 96 19 113/62 (79) 97 Intake and Output 08/10/20 08/11/20 19:00 07:00 Intake Total 1565 ml 1740 ml Output Total 830 ml 540 ml Balance 735 ml 1200 ml Free Water 190 ml IV Total 955 ml 1200 ml Tube Feeding 420 ml 420 ml Other 120 ml Output Urine Total 830 ml 540 ml Laboratory Tests 08/11/20 04:38: White Blood Count 22.5*H, Red Blood Count 2.96L, Hemoglobin 9.5L, Hematocrit 29.8L, Mean Corpuscular Volume 101H, Mean Corpuscular Hemoglobin 32.2H, Mean Corpuscular Hemoglobin Concent 32.0, Red Cell Distribution Width 12.1, Platelet Count 124L, Mean Platelet Volume 7.6, Neutrophils (%) (Auto) , Lymphocytes (%) (Auto) , Monocytes (%) (Auto) , Eosinophils (%) (Auto) , Basophils (%) (Auto) , Differential Total Cells Counted 100, Neutrophils % (Manual) 94H, Lymphocytes % (Manual) 2L, Monocytes % (Manual) 4, Eosinophils % (Manual) 0, Basophils % (Manual) 0, Band Neutrophils 0, Platelet Estimate DecreasedL, Platelet Morphology Normal, Hypochromasia 1+, Macrocytosis 1+, Prothrombin Time 10.5, Prothromb Time International Ratio 0.9, Activated Partial Thromboplast Time 26, Sodium Level 140, Potassium Level 5.0, Chloride Level 105, Carbon Dioxide Level 33H, Anion Gap 3L, Blood Urea Nitrogen 129H, Creatinine 4.2H, Estimat Glomerular Filtration Rate 14.3, Glucose Level 349H, Calcium Level 7.6L, Phosphorus Level 5.1H, Magnesium Level 3.4H, Total Bilirubin 0.1L, Gamma Glutamyl Transpeptidase 175H, Aspartate Amino Transf (AST/SGOT) 249H, Alanine Aminotransferase (ALT/SGPT) 96H, Alkaline Phosphatase 121H, C-Reactive Protein, Quantitative 4.0H , Total Protein 4.5L, Albumin 1.5L, Globulin 3.0, Albumin/Globulin Ratio 0.5L 08/11/20 09:51: Arterial Blood pH 7.256L, Arterial Blood Partial Pressure CO2 74.0*H, Arterial Blood Partial Pressure O2 73.0L, Arterial Blood HCO3 32.2H, Arterial Blood Oxygen Saturation 93.9L, Arterial Blood Base Excess 3.5H, Mehdi Test Positive Height (Feet): 5 Height (Inches): 5.00 Weight (Pounds): 160 General Appearance: lethargic Assessment/Plan Problem List: (1) Bilateral pneumonia ICD Codes: J18.9 - Pneumonia, unspecified organism SNOMED: 654304531, 484644667 (2) Acute respiratory failure with hypoxia ICD Codes: J96.01 - Acute respiratory failure with hypoxia SNOMED: 14929045, 580787795 (3) Malnutrition ICD Codes: E46 - Unspecified protein-calorie malnutrition SNOMED: 28575195 (4) Shock liver ICD Codes: K72.00 - Acute and subacute hepatic failure without coma SNOMED: 576631488 (5) ERIKA (acute kidney injury) ICD Codes: N17.9 - Acute kidney failure, unspecified SNOMED: 5178530, 99379472 (6) Diabetes mellitus out of control ICD Codes: E11.65 - Type 2 diabetes mellitus with hyperglycemia SNOMED: 73913025, 982271710 Status: progressing, unchanged Assessment/Plan: lethargic shock liver malnutrtion dr sandy san is back and will resume care in am poor prognosis neuroology referral per dr san(i recommended ethic and neurology consult to Rey Guzman MD Aug 11, 2020 22:02
--- NOTE | 2020-08-11 22:05 | NUR ---
NURSE NOTES: O2 SATURATION 88%-90% NOTED THAT CALLED RT, WAS AWARE.
--- NOTE | 2020-08-11 22:57 | NUR ---
NURSE NOTES: NURSE ADVISOR IN THE PT'S ROOM.
[2020-08-12] VITALS (47 sets, daily range): BP systolic 65–162; BP diastolic 33–82
[2020-08-12] MEDS: NovoLOG Insulin Flexpen SUBQ SCH ×8 (00:04→17:24)
--- NOTE | 2020-08-12 00:24 | NUR ---
Sql Developer Dba: Message left for MD Villanueva at this time about abnormal EEG results. Addendum: 08/12/20 at 0234 by SELENA CHANDLER RN NURSE NOTES: Message left for MD Villanueva at this time about abnormal EEG results.
--- NOTE | 2020-08-12 02:26 | NUR ---
NURSE NOTES: CALLED RT DUE TO DESATURATION 84% AT 2010AM. RT (DAVIE) CAME, CONTROLLED VENT AND SUCTIONED, O2 SATURATION 93% NOTED AT THIS TIME.
[2020-08-12] MEDS: Acetaminophen 650 MG SUPP RECTAL PRN (03:59)
--- NOTE | 2020-08-12 04:30 | NUR ---
NURSE NOTES: GIVEN TYLENOL 650MG NV DUE TO TEMP 101.4F AT 0359AM. MORNING CARE WAS DONE, TEMP 101F NOTED AT THIS TIME, KEPT COOLING MEASURE, WILL CONTINUE TO MONITOR.
[2020-08-12] MEDS: dilTIAZem HCl 60mg tab GT SCH ×3 (05:54→22:00)
--- NOTE | 2020-08-12 06:08 | NUR ---
NURSE NOTES: VSS, NO RESPONSE STATUS, TOLERATED OGT FEEDING, NO ACUTE DISTRESS NOTED AT THIS TIME.
[2020-08-12 06:58] LABS: HEMATOCRIT 30.8 % (42.0-52.0); HEMOGLOBIN 10.2 G/DL (14.2-18.0); MEAN CORPUSCULAR VOLUME 98 FL (80-99); PLATELET COUNT 153 K/UL (150-450); RED BLOOD COUNT 3.13 M/UL (4.70-6.10); RED CELL DISTRIBUTION WIDTH 12.1 % (11.6-14.8)
[2020-08-12 07:14] LABS: WHITE BLOOD COUNT 26.1 K/UL (4.8-10.8)
--- NOTE | 2020-08-12 07:23 | NUR ---
NURSE HAND-OFF REPORT: Latest Vital Signs: Temperature 98.7 , Pulse 97 , B/P 21 /69 , Respiratory Rate 19 , O2 SAT 95 , Mechanical Ventilator, O2 Flow Rate . Vital Sign Comment: EKG Rhythm: Sinus Rhythm Rhythm change?: N Notified?: Moi Guzman MD Response: Latest Orozco Fall Score: 70 Fall Risk: High Risk Safety Measures: Call light Within Reach, Bed Alarm Zone 1, Side Rails Side Rails x2, Bed position Low and Locked. Fall Precautions: Yellow Socks Door Sign Patient Fall Education Report given to CARLOS BERRY.
[2020-08-12 07:33] LABS: ALBUMIN 1.7 G/DL (3.4-5.0); ALBUMIN/GLOBULIN RATIO 0.5 (1.0-2.7); BILIRUBIN,TOTAL 0.4 MG/DL (0.2-1.0); CALCIUM 7.6 MG/DL (8.5-10.1); CREATININE 3.2 MG/DL (0.55-1.30); PHOSPHORUS 5.3 MG/DL (2.5-4.9); POTASSIUM 4.8 MMOL/L (3.5-5.1)
--- NOTE | 2020-08-12 07:33 | NUR ---
NURSE NOTES: Received report from CARLOS Cowart. Patient observed laying in bed, unresponsive to physical stimuli. Patient SR with HR 100, on ETT 7.5 24cm on lip line AC 16 TV 550 Fio2 100% PEEP 8. O2 sat 89%. Patient has an OGT running Nepro @ 35mL/hr. Pt has a arteaga catheter, draining yellow urine with gravity to urometer. Pt is on a P200 mattress. Penis and scrotum noted to be swollen. Right IJ Kevin catheter with pigtail, running Levophed 2mcg/min and D5W @ 100mL/hr. EEG was done last night. Bed in lowest position, side rails upx3, call light within reach, bed alarm on , Will continue to monitor .
--- NOTE | 2020-08-12 07:37 | General Progress Note ---
Subjective ROS Limited/Unobtainable: No Allergies: Coded Allergies: No Known Allergies (Unverified , 07/29/20) Objective Last 24 Hour Vital Signs Date Time Temp Pulse Resp B/P (MAP) Pulse Ox O2 Delivery O2 Flow Rate FiO2 08/12/20 07:00 99 20 116/66 (83) 91 08/12/20 07:00 116/60 08/12/20 06:30 94 19 129/73 (91) 92 08/12/20 06:00 21/69 08/12/20 06:00 98.7 97 19 121/69 (86) 95 08/12/20 05:54 100 135/72 08/12/20 05:30 101 22 129/69 (89) 98 08/12/20 05:00 104 22 128/70 (89) 97 08/12/20 05:00 128/70 08/12/20 04:30 101.0 107 22 126/64 (84) 96 08/12/20 04:29 101.0 08/12/20 04:00 101.4 109 22 114/62 (79) 95 08/12/20 04:00 128/70 08/12/20 04:00 100 08/12/20 04:00 109 08/12/20 04:00 Mechanical Ventilator 08/12/20 03:00 111 18 107/57 (74) 92 08/12/20 03:00 114/62 08/12/20 02:30 112 19 103/49 (67) 91 08/12/20 02:26 111 20 90 08/12/20 02:00 95/52 08/12/20 02:00 106 18 95/52 (66) 84 08/12/20 01:30 106 18 91/50 (64) 84 08/12/20 01:00 104 21 108/55 (72) 88 08/12/20 01:00 108/55 08/12/20 00:30 105 18 107/56 (73) 89 08/12/20 00:00 Mechanical Ventilator 08/12/20 00:00 115/62 08/12/20 00:00 100 08/12/20 00:00 99.9 102 20 115/62 (79) 91 08/12/20 00:00 102 08/11/20 23:30 104 19 120/62 (81) 89 08/11/20 23:04 104 16 90 08/11/20 23:00 104 19 122/68 (86) 89 08/11/20 23:00 122/68 08/11/20 22:30 101 20 125/63 (83) 90 08/11/20 22:00 100 20 133/71 (91) 92 08/11/20 22:00 133/71 08/11/20 22:00 100 125/63 08/11/20 21:30 100 20 127/67 (87) 92 08/11/20 21:00 124/63 08/11/20 21:00 99 20 124/63 (83) 93 08/11/20 20:30 100 20 145/76 (99) 94 08/11/20 20:00 100 08/11/20 20:00 134/70 08/11/20 20:00 99.0 100 20 134/70 (91) 92 08/11/20 20:00 Mechanical Ventilator 08/11/20 19:30 96 19 129/66 (87) 94 08/11/20 19:21 97 08/11/20 19:20 97 19 90 08/11/20 19:00 101 20 143/63 (89) 97 08/11/20 19:00 143/73 08/11/20 18:00 93 19 128/69 (88) 99 08/11/20 18:00 128/69 08/11/20 17:15 93 18 117/58 (77) 97 08/11/20 17:00 92 17 88/45 (59) 96 08/11/20 17:00 97/48 08/11/20 16:59 88/38 08/11/20 16:00 97 08/11/20 16:00 99.2 92 17 92/40 (57) 97 08/11/20 16:00 Mechanical Ventilator 08/11/20 16:00 100 08/11/20 15:00 96 17 109/60 (76) 97 08/11/20 14:00 93 18 112/62 (79) 97 08/11/20 13:20 92 17 100 08/11/20 13:00 101 17 118/67 (84) 98 08/11/20 12:00 99 08/11/20 12:00 100 08/11/20 12:00 Mechanical Ventilator 08/11/20 12:00 97.8 95 19 120/64 (82) 98 08/11/20 11:40 104 16 100 08/11/20 11:00 94 18 102/53 (69) 98 08/11/20 10:00 99 16 92/43 (59) 96 08/11/20 09:00 98 16 109/56 (73) 98 08/11/20 08:00 100 08/11/20 08:00 Mechanical Ventilator 08/11/20 08:00 96 08/11/20 08:00 99.8 97 16 110/55 (73) 98 Intake and Output 08/11/20 08/12/20 19:00 07:00 Intake Total 1760.125 ml 1766.25 ml Output Total 840 ml 610 ml Balance 920.125 ml 1156.25 ml Free Water 90 ml IV Total 1320.125 ml 1286.25 ml Tube Feeding 350 ml 420 ml Other 60 ml Output Urine Total 840 ml 610 ml # Bowel Movements 1 Laboratory Tests 08/11/20 09:51: Arterial Blood pH 7.256L, Arterial Blood Partial Pressure CO2 74.0*H, Arterial Blood Partial Pressure O2 73.0L, Arterial Blood HCO3 32.2H, Arterial Blood Oxygen Saturation 93.9L, Arterial Blood Base Excess 3.5H, Mehdi Test Positive 08/11/20 17:11: POC Whole Blood Glucose 175H 08/11/20 20:45: POC Whole Blood Glucose [Pending] 08/12/20 06:02: White Blood Count 26.1*H, Red Blood Count 3.13L, Hemoglobin 10.2L, Hematocrit 30.8L, Mean Corpuscular Volume 98, Mean Corpuscular Hemoglobin 32.5H, Mean Corpuscular Hemoglobin Concent 33.1, Red Cell Distribution Width 12.1, Platelet Count 153, Mean Platelet Volume 8.3, Neutrophils (%) (Auto) , Lymphocytes (%) (Auto) , Monocytes (%) (Auto) , Eosinophils (%) (Auto) , Basophils (%) (Auto) , Neutrophils % (Manual) [Pending], Lymphocytes % (Manual) [Pending], Platelet Estimate [Pending], Platelet Morphology [Pending], Sodium Level [Pending], Potassium Level [Pending], Chloride Level [Pending], Carbon Dioxide Level [Pending], Blood Urea Nitrogen [Pending], Creatinine [Pending], Estimat Glomerular Filtration Rate [Pending], Glucose Level [Pending], Calcium Level [Pending], Phosphorus Level [Pending], Magnesium Level [Pending], Total Bilirub in [Pending], Gamma Glutamyl Transpeptidase [Pending], Aspartate Amino Transf (AST/SGOT) [Pending], Alanine Aminotransferase (ALT/SGPT) [Pending], Alkaline Phosphatase [Pending], C-Reactive Protein, Quantitative [Pending], Pro-B-Type Natriuretic Peptide [Pending], Total Protein [Pending], Albumin [Pending], Globulin [Pending] Height (Feet): 5 Height (Inches): 5.00 Weight (Pounds): 160 General Appearance: no apparent distress EENT: normal ENT inspection Neck: supple Cardiovascular: normal rate Respiratory/Chest: decreased breath sounds Abdomen: normal bowel sounds, non tender, soft Extremities: non-tender Assessment/Plan Problem List: (1) Hypoxia ICD Codes: R09.02 - Hypoxemia SNOMED: 155231791 (2) Bilateral pneumonia ICD Codes: J18.9 - Pneumonia, unspecified organism SNOMED: 201267249, 160260369 (3) Acute respiratory failure with hypoxia ICD Codes: J96.01 - Acute respiratory failure with hypoxia SNOMED: 88486954, 226917168 (4) Bradycardia ICD Codes: R00.1 - Bradycardia, unspecified SNOMED: 64155970 (5) Malnutrition ICD Codes: E46 - Unspecified protein-calorie malnutrition SNOMED: 94324926 (6) Shock liver ICD Codes: K72.00 - Acute and subacute hepatic failure without coma SNOMED: 931411835 (7) ERIKA (acute kidney injury) ICD Codes: N17.9 - Acute kidney failure, unspecified SNOMED: 0169119, 37080532 Status: progressing, unchanged Assessment/Plan: NGTF covid care fu labs abx per ID shock liver>>>fu LFTS>>>improving bowel regimen poor prognosis will Enoch Beverly MD Aug 12, 2020 07:36
--- NOTE | 2020-08-12 08:04 | General Progress Note ---
Subjective ROS Limited/Unobtainable: Yes Allergies: Coded Allergies: No Known Allergies (Unverified , 07/29/20) Subjective events note interval notes reviewed glucose values are elevated Item Value Date Time Bedside Blood Glucose 284 mg/dl H 08/12/20 0555 Bedside Blood Glucose 331 mg/dl H 08/12/20 0005 Bedside Blood Glucose 203 mg/dl H 08/11/20 2055 Bedside Blood Glucose 175 mg/dl H 08/11/20 1800 Bedside Blood Glucose 259 mg/dl H 08/11/20 1213 Bedside Blood Glucose 265 mg/dl H 08/11/20 0913 Objective Last 24 Hour Vital Signs Date Time Temp Pulse Resp B/P (MAP) Pulse Ox O2 Delivery O2 Flow Rate FiO2 08/12/20 07:00 99 20 116/66 (83) 91 08/12/20 07:00 116/60 08/12/20 06:30 94 19 129/73 (91) 92 08/12/20 06:00 21/69 08/12/20 06:00 98.7 97 19 121/69 (86) 95 08/12/20 05:54 100 135/72 08/12/20 05:30 101 22 129/69 (89) 98 08/12/20 05:00 104 22 128/70 (89) 97 08/12/20 05:00 128/70 08/12/20 04:30 101.0 107 22 126/64 (84) 96 08/12/20 04:29 101.0 08/12/20 04:00 101.4 109 22 114/62 (79) 95 08/12/20 04:00 128/70 08/12/20 04:00 100 08/12/20 04:00 109 08/12/20 04:00 Mechanical Ventilator 08/12/20 03:00 111 18 107/57 (74) 92 08/12/20 03:00 114/62 08/12/20 02:30 112 19 103/49 (67) 91 08/12/20 02:26 111 20 90 08/12/20 02:00 95/52 08/12/20 02:00 106 18 95/52 (66) 84 08/12/20 01:30 106 18 91/50 (64) 84 08/12/20 01:00 104 21 108/55 (72) 88 08/12/20 01:00 108/55 1/19/21 00:30 105 18 107/56 (73) 89 08/12/20 00:00 Mechanical Ventilator 08/12/20 00:00 115/62 08/12/20 00:00 100 08/12/20 00:00 99.9 102 20 115/62 (79) 91 08/12/20 00:00 102 08/11/20 23:30 104 19 120/62 (81) 89 08/11/20 23:04 104 16 90 08/11/20 23:00 104 19 122/68 (86) 89 08/11/20 23:00 122/68 08/11/20 22:30 101 20 125/63 (83) 90 08/11/20 22:00 100 20 133/71 (91) 92 08/11/20 22:00 133/71 08/11/20 22:00 100 125/63 08/11/20 21:30 100 20 127/67 (87) 92 08/11/20 21:00 124/63 08/11/20 21:00 99 20 124/63 (83) 93 08/11/20 20:30 100 20 145/76 (99) 94 08/11/20 20:00 100 08/11/20 20:00 134/70 08/11/20 20:00 99.0 100 20 134/70 (91) 92 08/11/20 20:00 Mechanical Ventilator 08/11/20 19:30 96 19 129/66 (87) 94 08/11/20 19:21 97 08/11/20 19:20 97 19 90 08/11/20 19:00 101 20 143/63 (89) 97 08/11/20 19:00 143/73 08/11/20 18:00 93 19 128/69 (88) 99 08/11/20 18:00 128/69 08/11/20 17:15 93 18 117/58 (77) 97 08/11/20 17:00 92 17 88/45 (59) 96 08/11/20 17:00 97/48 08/11/20 16:59 88/38 08/11/20 16:00 97 08/11/20 16:00 99.2 92 17 92/40 (57) 97 08/11/20 16:00 Mechanical Ventilator 08/11/20 16:00 100 08/11/20 15:00 96 17 109/60 (76) 97 08/11/20 14:00 93 18 112/62 (79) 97 08/11/20 13:20 92 17 100 08/11/20 13:00 101 17 118/67 (84) 98 08/11/20 12:00 99 08/11/20 12:00 100 08/11/20 12:00 Mechanical Ventilator 08/11/20 12:00 97.8 95 19 120/64 (82) 98 08/11/20 11:40 104 16 100 08/11/20 11:00 94 18 102/53 (69) 98 08/11/20 10:00 99 16 92/43 (59) 96 08/11/20 09:00 98 16 109/56 (73) 98 Intake and Output 08/11/20 08/12/20 19:00 07:00 Intake Total 1760.125 ml 1766.25 ml Output Total 840 ml 610 ml Balance 920.125 ml 1156.25 ml Free Water 90 ml IV Total 1320.125 ml 1286.25 ml Tube Feeding 350 ml 420 ml Other 60 ml Output Urine Total 840 ml 610 ml # Bowel Movements 1 Laboratory Tests 08/11/20 09:51: Arterial Blood pH 7.256L, Arterial Blood Partial Pressure CO2 74.0*H, Arterial Blood Partial Pressure O2 73.0L, Arterial Blood HCO3 32.2H, Arterial Blood Oxygen Saturation 93.9L, Arterial Blood Base Excess 3.5H, Mehdi Test Positive 08/11/20 17:11: POC Whole Blood Glucose 175H 08/11/20 20:45: POC Whole Blood Glucose [Pending] 08/12/20 06:02: White Blood Count 26.1*H, Red Blood Count 3.13L, Hemoglobin 10.2L, Hematocrit 30.8L, Mean Corpuscular Volume 98, Mean Corpuscular Hemoglobin 32.5H, Mean Corpuscular Hemoglobin Concent 33.1, Red Cell Distribution Width 12.1, Platelet Count 153, Mean Platelet Volume 8.3, Neutrophils (%) (Auto) , Lymphocytes (%) (Auto) , Monocytes (%) (Auto) , Eosinophils (%) (Auto) , Basophils (%) (Auto) , Neutrophils % (Manual) [Pending], Lymphocytes % (Manual) [Pending], Platelet Estimate [Pending], Platelet Morphology [Pending], Sodium Level [Pending], Potassium Level [Pending], Chloride Level [Pending], Carbon Dioxide Level [Pending], Blood Urea Nitrogen [Pending], Creatinine [Pending], Estimat Glomer ular Filtration Rate [Pending], Glucose Level [Pending], Calcium Level [Pending], Phosphorus Level [Pending], Magnesium Level [Pending], Total Bilirubin [Pending], Gamma Glutamyl Transpeptidase [Pending], Aspartate Amino Transf (AST/SGOT) [Pending], Alanine Aminotransferase (ALT/SGPT) [Pending], Alkaline Phosphatase [Pending], C-Reactive Protein, Quantitative [Pending], Pro-B-Type Natriuretic Peptide [Pending], Total Protein [Pending], Albumin [Pending], Globulin [Pending] Height (Feet): 5 Height (Inches): 5.00 Weight (Pounds): 160 Objective Current Medications Medications (Trade) Dose Ordered Sig/Fabiano Route PRN Reason Start Time Stop Time Status Last Admin Dose Admin Acetaminophen (Tylenol) 650 mg Q4H PRN NG Temp >100.5 08/03/20 04:15 09/02/20 04:14 08/11/20 00:05 Acetaminophen (Tylenol) 650 mg Q4H PRN RECTAL Temp >100.5 08/01/20 20:30 08/31/20 20:29 08/12/20 03:59 Albuterol Sulfate (Proventil MDI) 2 puff Q4H PRN INH Shortness of Breath 07/29/20 22:45 10/27/20 22:44 Ceftriaxone Sodium 1 gm/ Dextrose 55 ml @ 110 mls/hr Q24H IVPB 08/07/20 10:00 08/14/20 09:59 08/11/20 10:30 Cetylpyridinium Chloride (Cepacol) 1 lozg Q2H PRN [place] For Cough 07/30/20 21:00 10/28/20 20:59 08/01/20 08:47 Chlorhexidine Gluconate (Marisela-Hex 2%) 1 applic DAILY@2000 TOPIC 08/08/20 20:00 11/06/20 19:59 08/11/20 19:34 Clonidine HCl (Catapres Tab) 0.1 mg Q2H PRN ORAL SBP > 170mmHg 08/04/20 09:45 11/02/20 09:44 08/07/20 23:20 Dextrose 1,000 ml @ 100 mls/hr Q10H IV 08/06/20 12:15 09/05/20 12:14 08/12/20 07:30 Dextrose (Dextrose 50%) 25 ml Q30M PRN IV Hypoglycemia 08/10/20 12:15 11/08/20 12:14 Dextrose (Dextrose 50%) 50 ml Q30M PRN IV Hypoglycemia 08/10/20 12:15 11/08/20 12:14 Diltiazem HCl (Cardizem Tab) 120 mg Q8HR GT 08/08/20 22:00 09/07/20 21:59 08/09/20 14:22 Docusate Sodium (Colace) 100 mg Q12HR GT 08/08/20 21:00 09/07/20 20:59 08/11/20 20:31 Enoxaparin Sodium (Lovenox) 30 mg DAILY SUBQ 08/02/20 10:00 10/31/20 09:59 08/10/20 08:55 Guaifenesin/ Dextromethorphan (Robitussin DM Syrup) 15 ml Q6H PRN ORAL For Cough 07/31/20 08:30 10/29/20 08:29 08/01/20 08:47 Insulin Aspart (NovoLOG) Q6HR SUBQ 08/06/20 12:00 11/04/20 11:59 08/12/20 05:53 Insulin Aspart (NovoLOG) 16 units EVERY 6 HOURS SUBQ 08/11/20 12:00 11/08/20 17:59 08/12/20 05:54 Insulin Detemir (Levemir) 30 units Q12HR SUBQ 08/10/20 21:00 11/04/20 20:59 08/11/20 20:55 Methylprednisolone Sodium Succinate (Solu-MEDROL) 40 mg EVERY 12 HOURS IVP 08/04/20 12:30 11/02/20 12:29 08/11/20 20:31 Norepinephrine Bitartrate 4 mg/ Sodium Chloride 250 ml @ 0 mls/hr Q24H PRN IV For hypotension 08/08/20 17:15 08/17/20 19:00 08/11/20 16:59 Pantoprazole (Protonix) 40 mg DAILY IVP 08/06/20 10:00 09/05/20 09:59 08/11/20 08:42 Polyethylene Glycol (Miralax) 17 gm BEDTIME ORAL 08/06/20 21:00 09/05/20 20:59 08/11/20 20:31 Vitamin D (Vitamin D) 5,000 unit DAILY GT 08/11/20 10:15 09/10/20 10:14 08/11/20 10:30 Assessment/Plan Problem List: (1) Diabetes mellitus out of control ICD Codes: E11.65 - Type 2 diabetes mellitus with hyperglycemia SNOMED: 48582249, 260683573 (2) Acute respiratory failure with hypoxia ICD Codes: J96.01 - Acute respiratory failure with hypoxia SNOMED: 26052852, 031131297 (3) Bilateral pneumonia ICD Codes: J18.9 - Pneumonia, unspecified organism SNOMED: 178633378, 164980298 Status: progressing, unchanged Assessment/Plan: continue Levemir 30 units bid increase Novolog 16 to 20 units every 6 hours continue Novolog sliding scale every 6 hours Jeffrey Sinclair MD Aug 12, 2020 08:04
--- NOTE | 2020-08-12 09:00 | NUR ---
NURSE NOTES: Pt remains too unstable to be taken downstairs for a head CT.
[2020-08-12] MEDS: Enoxaparin 30mg Inj SUBQ SCH (09:11)
[2020-08-12] MEDS: Pantoprazole Inj IVP SCH (09:11)
[2020-08-12] MEDS: cefTRIAXone 1 GM in D5W 55 ML IVPB SCH (09:12)
--- NOTE | 2020-08-12 09:14 | NUR ---
NURSE NOTES: Some 9AM medications not administered yet d/t pharmacy not having medications stocked in [facility].
[2020-08-12] MEDS: Vitamin D 1000 units Tab GT SCH (09:24)
[2020-08-12] MEDS: Solu-MEDROL 125mg Inj IVP SCH ×2 (09:24→20:59)
[2020-08-12] MEDS: Docusate 100mg/10ml Liq GT SCH ×2 (09:24→20:59)
--- NOTE | 2020-08-12 10:00 | NUR ---
NURSE NOTES: Dr Bains at bedside assessing pt. Updated him on pt's current condition. No new orders given at this time.
[2020-08-12] MEDS: Levemir Flexpen SUBQ SCH (10:01)
--- NOTE | 2020-08-12 10:02 | Hematology/Onc Progress Note ---
Assessment/Plan Assessment/Plan Assessment and Recs # Leukocytosis with Acute respiratory failure with hypoxia/covid19++ --> wbc 27-->20-->19-->23-->28-->23->26 --> ABx ctx --> steriods as well --> pulm and ID # Thrombocytopenia is likely related to covid19 --> plt 83-->118-->183->111-->107-->154 --> trend as needed --> transfuse prn --> hep and hiv neg # Anemia of chronic dsease --> hgb 10-->10.2 --> anemia panel has been reviewed # Respiratory Failure --> intubated 08/01/20 --> oxygenating better --> Continue PEEP 12; now decreased to 5 # AMs --> as per neuro # Hyponatremia --> per primary MD # Hyperglycemia --> BG control # Pneumonia --> abx per ID --> on dexamethasone (07/30-) --> now on remdesivir per ID (08/01-) # Covid19 with Elevated inflammatory markers; ferritin, D-Dimer --> On Lovenox # Dvt ppx lovenox sq Appreciate consultation and krysta RN Subjective Allergies: Coded Allergies: No Known Allergies (Unverified , 07/29/20) All Systems: reviewed and negative except above Subjective 08/06 remains altered, on vent, poorly responsive, as per Sophia Polanco, to inform son 08/07 labs noted, on vent, with ogt, meds reviewed, wbc elev, on steriods 08/08 remains on vent, on dex and ogt, no bleeding, on ctx 08/10 is on vent, ogt, no bleeding, meds noted, no night sweats, krysta rn 08/11 on vent, gt, no bleeding, vital studies neg, krysta rn, picc noted 08/12 on vent, with ogt, labs reviewed, plts improved Objective Objective Current Medications Medications (Trade) Dose Ordered Sig/Fabiano Route PRN Reason Start Time Stop Time Status Last Admin Dose Admin Acetaminophen (Tylenol) 650 mg Q4H PRN NG Temp >100.5 08/03/20 04:15 09/02/20 04:14 08/11/20 00:05 Acetaminophen (Tylenol) 650 mg Q4H PRN RECTAL Temp >100.5 08/01/20 20:30 08/31/20 20:29 08/12/20 03:59 Albuterol Sulfate (Proventil MDI) 2 puff Q4H PRN INH Shortness of Breath 07/29/20 22:45 10/27/20 22:44 Ceftriaxone Sodium 1 gm/ Dextrose 55 ml @ 110 mls/hr Q24H IVPB 08/07/20 10:00 08/14/20 09:59 08/12/20 09:12 Cetylpyridinium Chloride (Cepacol) 1 lozg Q2H PRN [place] For Cough 07/30/20 21:00 10/28/20 20:59 08/01/20 08:47 Chlorhexidine Gluconate (Marisela-Hex 2%) 1 applic DAILY@2000 TOPIC 08/08/20 20:00 11/06/20 19:59 08/11/20 19:34 Clonidine HCl (Catapres Tab) 0.1 mg Q2H PRN ORAL SBP > 170mmHg 08/04/20 09:45 11/02/20 09:44 08/07/20 23:20 Dextrose 1,000 ml @ 100 mls/hr Q10H IV 08/06/20 12:15 09/05/20 12:14 08/12/20 07:30 Dextrose (Dextrose 50%) 25 ml Q30M PRN IV Hypoglycemia 08/10/20 12:15 11/08/20 12:14 Dextrose (Dextrose 50%) 50 ml Q30M PRN IV Hypoglycemia 08/10/20 12:15 11/08/20 12:14 Diltiazem HCl (Cardizem Tab) 120 mg Q8HR GT 08/08/20 22:00 09/07/20 21:59 08/09/20 14:22 Docusate Sodium (Colace) 100 mg Q12HR GT 08/08/20 21:00 09/07/20 20:59 08/12/20 09:24 Enoxaparin Sodium (Lovenox) 30 mg DAILY SUBQ 08/02/20 10:00 10/31/20 09:59 08/12/20 09:11 Guaifenesin/ Dextromethorphan (Robitussin DM Syrup) 15 ml Q6H PRN ORAL For Cough 07/31/20 08:30 10/29/20 08:29 08/01/20 08:47 Insulin Aspart (NovoLOG) Q6HR SUBQ 08/06/20 12:00 11/04/20 11:59 08/12/20 05:53 Insulin Aspart (NovoLOG) 20 units EVERY 6 HOURS SUBQ 08/12/20 12:00 11/08/20 17:59 Insulin Detemir (Levemir) 30 units Q12HR SUBQ 08/10/20 21:00 11/04/20 20:59 08/11/20 20:55 Methylprednisolone Sodium Succinate (Solu-MEDROL) 40 mg EVERY 12 HOURS IVP 08/12/20 09:09 11/02/20 12:29 08/12/20 09:24 Norepinephrine Bitartrate 4 mg/ Sodium Chloride 250 ml @ 0 mls/hr Q24H PRN IV For hypotension 08/08/20 17:15 08/17/20 19:00 08/11/20 16:59 Pantoprazole (Protonix) 40 mg DAILY IVP 08/06/20 10:00 09/05/20 09:59 08/12/20 09:11 Polyethylene Glycol (Miralax) 17 gm BEDTIME ORAL 08/06/20 21:00 09/05/20 20:59 08/11/20 20:31 Vitamin D (Vitamin D) 5,000 unit DAILY GT 08/11/20 10:15 09/10/20 10:14 08/12/20 09:24 Last 24 Hour Vital Signs Date Time Temp Pulse Resp B/P (MAP) Pulse Ox O2 Delivery O2 Flow Rate FiO2 08/12/20 09:00 100/57 08/12/20 08:00 100 08/12/20 08:00 109/62 08/12/20 07:00 99 20 116/66 (83) 91 08/12/20 07:00 116/60 08/12/20 06:30 94 19 129/73 (91) 92 08/12/20 06:00 21/69 08/12/20 06:00 98.7 97 19 121/69 (86) 95 08/12/20 05:54 100 135/72 08/12/20 05:30 101 22 129/69 (89) 98 08/12/20 05:00 104 22 128/70 (89) 97 08/12/20 05:00 128/70 08/12/20 04:30 101.0 107 22 126/64 (84) 96 08/12/20 04:29 101.0 08/12/20 04:00 101.4 109 22 114/62 (79) 95 08/12/20 04:00 128/70 08/12/20 04:00 100 08/12/20 04:00 109 08/12/20 04:00 Mechanical Ventilator 08/12/20 03:00 111 18 107/57 (74) 92 08/12/20 03:00 114/62 08/12/20 02:30 112 19 103/49 (67) 91 08/12/20 02:26 111 20 90 08/12/20 02:00 95/52 08/12/20 02:00 106 18 95/52 (66) 84 08/12/20 01:30 106 18 91/50 (64) 84 08/12/20 01:00 104 21 108/55 (72) 88 08/12/20 01:00 108/55 08/12/20 00:30 105 18 107/56 (73) 89 08/12/20 00:00 Mechanical Ventilator 08/12/20 00:00 115/62 08/12/20 00:00 100 08/12/20 00:00 99.9 102 20 115/62 (79) 91 08/12/20 00:00 102 08/11/20 23:30 104 19 120/62 (81) 89 08/11/20 23:04 104 16 90 08/11/20 23:00 104 19 122/68 (86) 89 08/11/20 23:00 122/68 08/11/20 22:30 101 20 125/63 (83) 90 08/11/20 22:00 100 20 133/71 (91) 92 08/11/20 22:00 133/71 08/11/20 22:00 100 125/63 08/11/20 21:30 100 20 127/67 (87) 92 08/11/20 21:00 124/63 08/11/20 21:00 99 20 124/63 (83) 93 08/11/20 20:30 100 20 145/76 (99) 94 08/11/20 20:00 100 08/11/20 20:00 134/70 08/11/20 20:00 99.0 100 20 134/70 (91) 92 08/11/20 20:00 Mechanical Ventilator 08/11/20 19:30 96 19 129/66 (87) 94 08/11/20 19:21 97 08/11/20 19:20 97 19 90 08/11/20 19:00 101 20 143/63 (89) 97 08/11/20 19:00 143/73 08/11/20 18:00 93 19 128/69 (88) 99 08/11/20 18:00 128/69 08/11/20 17:15 93 18 117/58 (77) 97 08/11/20 17:00 92 17 88/45 (59) 96 08/11/20 17:00 97/48 08/11/20 16:59 88/38 08/11/20 16:00 97 08/11/20 16:00 99.2 92 17 92/40 (57) 97 08/11/20 16:00 Mechanical Ventilator 08/11/20 16:00 100 08/11/20 15:00 96 17 109/60 (76) 97 08/11/20 14:00 93 18 112/62 (79) 97 08/11/20 13:20 92 17 100 08/11/20 13:00 101 17 118/67 (84) 98 08/11/20 12:00 99 08/11/20 12:00 100 08/11/20 12:00 Mechanical Ventilator 08/11/20 12:00 97.8 95 19 120/64 (82) 98 08/11/20 11:40 104 16 100 08/11/20 11:00 94 18 102/53 (69) 98 08/11/20 10:00 99 16 92/43 (59) 96 08/11/20 09:00 98 16 109/56 (73) 98 08/11/20 08:00 100 08/11/20 08:00 Mechanical Ventilator 08/11/20 08:00 96 08/11/20 08:00 99.8 97 16 110/55 (73) 98 08/11/20 07:02 99 16 100 08/11/20 07:00 98 16 104/54 (71) 98 08/11/20 06:00 98 16 104/50 (68) 97 08/11/20 05:58 98 97/45 08/11/20 05:15 100 17 97/45 (62) 97 08/11/20 05:00 100 17 87/36 (53) 97 08/11/20 04:00 96 08/11/20 04:00 99.7 96 16 96/49 (65) 99 08/11/20 04:00 100 08/11/20 04:00 Mechanical Ventilator 08/11/20 03:04 102 18 100 08/11/20 03:00 105 19 103/58 (73) 95 08/11/20 02:00 98 19 102/50 (67) 98 08/11/20 01:00 97 19 109/55 (73) 97 08/11/20 00:35 100.2 08/11/20 00:30 100.2 97 19 107/54 (71) 96 08/11/20 00:00 100 08/11/20 00:00 100 08/11/20 00:00 Mechanical Ventilator 08/11/20 00:00 100.9 100 19 104/54 (71) 96 08/10/20 23:09 98 19 100 08/10/20 23:00 97 18 118/67 (84) 98 08/10/20 22:00 96 19 113/62 (79) 97 08/10/20 21:59 97 96/48 08/10/20 21:30 97 19 96/48 (64) 96 08/10/20 21:00 97 17 103/50 (67) 96 08/10/20 20:00 99.2 98 18 109/60 (76) 98 08/10/20 20:00 Mechanical Ventilator 08/10/20 20:00 100 08/10/20 19:11 98 18 100 08/10/20 19:11 101 08/10/20 19:00 105 17 122/66 (84) 98 08/10/20 18:00 101 17 102/52 (69) 91 08/10/20 17:00 99 18 109/58 (75) 90 08/10/20 16:00 Mechanical Ventilator 08/10/20 16:00 100.1 96 19 107/56 (73) 90 08/10/20 16:00 100 08/10/20 15:57 96 08/10/20 15:06 97 16 90 08/10/20 15:00 96 16 137/75 (95) 95 08/10/20 14:00 95 17 137/75 (95) 86 08/10/20 14:00 98 101/55 08/10/20 13:00 96 16 127/70 (89) 87 08/10/20 12:00 Mechanical Ventilator 08/10/20 12:00 99.8 96 16 115/57 (76) 98 08/10/20 12:00 100 08/10/20 11:54 96 08/10/20 11:05 96 16 90 08/10/20 11:00 96 16 117/62 (80) 98 08/10/20 10:08 100.0 Intake and Output 08/11/20 08/12/20 19:00 07:00 Intake Total 1760.125 ml 1766.25 ml Output Total 840 ml 610 ml Balance 920.125 ml 1156.25 ml Free Water 90 ml IV Total 1320.125 ml 1286.25 ml Tube Feeding 350 ml 420 ml Other 60 ml Output Urine Total 840 ml 610 ml # Bowel Movements 1 Labs Test 08/10/20 05:56 08/10/20 08:47 08/10/20 09:02 08/10/20 18:37 White Blood Count 22.8 K/UL (4.8-10.8) Red Blood Count 3.20 M/UL (4.70-6.10) Hemoglobin 10.5 G/DL (14.2-18.0) Hematocrit 32.4 % (42.0-52.0) Mean Corpuscular Volume 101 FL (80-99) Mean Corpuscular Hemoglobin 33.0 PG (27.0-31.0) Mean Corpuscular Hemoglobin Concent 32.5 G/DL (32.0-36.0) Red Cell Distribution Width 12.2 % (11.6-14.8) Platelet Count 111 K/UL (150-450) Mean Platelet Volume 7.5 FL (6.5-10.1) Neutrophils (%) (Auto) % (45.0-75.0) Lymphocytes (%) (Auto) % (20.0-45.0) Monocytes (%) (Auto) % (1.0-10.0) Eosinophils (%) (Auto) % (0.0-3.0) Basophils (%) (Auto) % (0.0-2.0) Differential Total Cells Counted 100 Neutrophils % (Manual) 95 % (45-75) Lymphocytes % (Manual) 1 % (20-45) Monocytes % (Manual) 4 % (1-10) Eosinophils % (Manual) 0 % (0-3) Basophils % (Manual) 0 % (0-2) Band Neutrophils 0 % (0-8) Platelet Estimate Decreased Platelet Morphology Normal Anisocytosis Macrocytosis 1+ Sodium Level 144 MMOL/L (136-145) Potassium Level 4.7 MMOL/L (3.5-5.1) Chloride Level 109 MMOL/L (98-107) Carbon Dioxide Level 34 MMOL/L (21-32) Anion Gap 1 mmol/L (5-15) Blood Urea Nitrogen 115 mg/dL (7-18) Creatinine 3.5 MG/DL (0.55-1.30) Estimat Glomerular Filtration Rate 17.7 mL/min (>60) Glucose Level 337 MG/DL (74-106) Uric Acid 7.9 MG/DL (2.6-7.2) Calcium Level 7.8 MG/DL (8.5-10.1) Phosphorus Level 4.5 MG/DL (2.5-4.9) Magnesium Level 3.4 MG/DL (1.8-2.4) Total Bilirubin 0.2 MG/DL (0.2-1.0) Aspartate Amino Transf (AST/SGOT) 115 U/L (15-37) Alanine Aminotransferase (ALT/SGPT) 138 U/L (12-78) Alkaline Phosphatase 120 U/L (46-116) C-Reactive Protein, Quantitative 2.8 mg/dL (0.00-0.90) Total Protein 4.7 G/DL (6.4-8.2) Albumin 1.7 G/DL (3.4-5.0) Globulin 3.0 g/dL Albumin/Globulin Ratio 0.6 (1.0-2.7) Arterial Blood pH 7.263 (7.350-7.450) Arterial Blood Partial Pressure CO2 73.5 mmHg (35.0-45.0) Arterial Blood Partial Pressure O2 83.3 mmHg (75.0-100.0) Arterial Blood HCO3 32.5 mmol/L (22.0-26.0) Arterial Blood Oxygen Saturation 95.9 % (95-100) Arterial Blood Base Excess 3.8 (-2-2) Mehdi Test Positive Test 08/11/20 04:38 08/11/20 09:51 08/11/20 17:11 08/11/20 20:45 White Blood Count 22.5 K/UL (4.8-10.8) Red Blood Count 2.96 M/UL (4.70-6.10) Hemoglobin 9.5 G/DL (14.2-18.0) Hematocrit 29.8 % (42.0-52.0) Mean Corpuscular Volume 101 FL (80-99) Mean Corpuscular Hemoglobin 32.2 PG (27.0-31.0) Mean Corpuscular Hemoglobin Concent 32.0 G/DL (32.0-36.0) Red Cell Distribution Width 12.1 % (11.6-14.8) Platelet Count 124 K/UL (150-450) Mean Platelet Volume 7.6 FL (6.5-10.1) Neutrophils (%) (Auto) % (45.0-75.0) Lymphocytes (%) (Auto) % (20.0-45.0) Monocytes (%) (Auto) % (1.0-10.0) Eosinophils (%) (Auto) % (0.0-3.0) Basophils (%) (Auto) % (0.0-2.0) Differential Total Cells Counted 100 Neutrophils % (Manual) 94 % (45-75) Lymphocytes % (Manual) 2 % (20-45) Monocytes % (Manual) 4 % (1-10) Eosinophils % (Manual) 0 % (0-3) Basophils % (Manual) 0 % (0-2) Band Neutrophils 0 % (0-8) Platelet Estimate Decreased Platelet Morphology Normal Hypochromasia 1+ Macrocytosis 1+ Prothrombin Time 10.5 SEC (9.30-11.50) Prothromb Time International Ratio 0.9 (0.9-1.1) Activated Partial Thromboplast Time 26 SEC (23-33) Sodium Level 140 MMOL/L (136-145) Potassium Level 5.0 MMOL/L (3.5-5.1) Chloride Level 105 MMOL/L (98-107) Carbon Dioxide Level 33 MMOL/L (21-32) Anion Gap 3 mmol/L (5-15) Blood Urea Nitrogen 129 mg/dL (7-18) Creatinine 4.2 MG/DL (0.55-1.30) Estimat Glomerular Filtration Rate 14.3 mL/min (>60) Glucose Level 349 MG/DL (74-106) Calcium Level 7.6 MG/DL (8.5-10.1) Phosphorus Level 5.1 MG/DL (2.5-4.9) Magnesium Level 3.4 MG/DL (1.8-2.4) Total Bilirubin 0.1 MG/DL (0.2-1.0) Gamma Glutamyl Transpeptidase 175 U/L (5-85) Aspartate Amino Transf (AST/SGOT) 249 U/L (15-37) Alanine Aminotransferase (ALT/SGPT) 96 U/L (12-78) Alkaline Phosphatase 121 U/L (46-116) C-Reactive Protein, Quantitative 4.0 mg/dL (0.00-0.90) Total Protein 4.5 G/DL (6.4-8.2) Albumin 1.5 G/DL (3.4-5.0) Globulin 3.0 g/dL Albumin/Globulin Ratio 0.5 (1.0-2.7) Arterial Blood pH 7.256 (7.350-7.450) Arterial Blood Partial Pressure CO2 74.0 mmHg (35.0-45.0) Arterial Blood Partial Pressure O2 73.0 mmHg (75.0-100.0) Arterial Blood HCO3 32.2 mmol/L (22.0-26.0) Arterial Blood Oxygen Saturation 93.9 % (95-100) Arterial Blood Base Excess 3.5 (-2-2) Mehdi Test Positive POC Whole Blood Glucose 175 MG/DL (74-106) Test 08/12/20 06:02 White Blood Count 26.1 K/UL (4.8-10.8) Red Blood Count 3.13 M/UL (4.70-6.10) Hemoglobin 10.2 G/DL (14.2-18.0) Hematocrit 30.8 % (42.0-52.0) Mean Corpuscular Volume 98 FL (80-99) Mean Corpuscular Hemoglobin 32.5 PG (27.0-31.0) Mean Corpuscular Hemoglobin Concent 33.1 G/DL (32.0-36.0) Red Cell Distribution Width 12.1 % (11.6-14.8) Platelet Count 153 K/UL (150-450) Mean Platelet Volume 8.3 FL (6.5-10.1) Neutrophils (%) (Auto) % (45.0-75.0) Lymphocytes (%) (Auto) % (20.0-45.0) Monocytes (%) (Auto) % (1.0-10.0) Eosinophils (%) (Auto) % (0.0-3.0) Basophils (%) (Auto) % (0.0-2.0) Differential Total Cells Counted 100 Neutrophils % (Manual) 90 % (45-75) Lymphocytes % (Manual) 3 % (20-45) Monocytes % (Manual) 7 % (1-10) Eosinophils % (Manual) 0 % (0-3) Basophils % (Manual) 0 % (0-2) Band Neutrophils 0 % (0-8) Platelet Estimate Adequate Platelet Morphology Normal Macrocytosis 1+ Sodium Level 136 MMOL/L (136-145) Potassium Level 4.8 MMOL/L (3.5-5.1) Chloride Level 100 MMOL/L (98-107) Carbon Dioxide Level 33 MMOL/L (21-32) Anion Gap 3 mmol/L (5-15) Blood Urea Nitrogen 83 mg/dL (7-18) Creatinine 3.2 MG/DL (0.55-1.30) Estimat Glomerular Filtration Rate 19.6 mL/min (>60) Glucose Level 268 MG/DL (74-106) Calcium Level 7.6 MG/DL (8.5-10.1) Phosphorus Level 5.3 MG/DL (2.5-4.9) Magnesium Level 2.8 MG/DL (1.8-2.4) Total Bilirubin 0.4 MG/DL (0.2-1.0) Gamma Glutamyl Transpeptidase 160 U/L (5-85) Aspartate Amino Transf (AST/SGOT) 335 U/L (15-37) Alanine Aminotransferase (ALT/SGPT) 81 U/L (12-78) Alkaline Phosphatase 138 U/L (46-116) C-Reactive Protein, Quantitative 5.1 mg/dL (0.00-0.90) Pro-B-Type Natriuretic Peptide 5853 pg/mL (0-125) Total Protein 5.0 G/DL (6.4-8.2) Albumin 1.7 G/DL (3.4-5.0) Globulin 3.3 g/dL Albumin/Globulin Ratio 0.5 (1.0-2.7) Height (Feet): 5 Height (Inches): 5.00 Weight (Pounds): 160 Objective Vital Signs Vitals: reviewed, abnormal General Appearance: well appearing, mild distress HEENT: hearing grossly normal, moist mucus membranes Neck: full range of motion, supple Respiratory: ++vent Cardiovascular: normal peripheral pulses, regular rate, rhythm, no murmur Gastrointestinal: non tender, soft, non-distended, no guarding Neurologic: alert, oriented x3, no focal defects Skin: normal color, warm/dry Robin Ornelas MD Aug 12, 2020 10:02
--- NOTE | 2020-08-12 10:02 | NUR ---
RD ASSESSMENT & RECOMMENDATIONS SEE CARE ACTIVITY FOR COMPLETE ASSESSMENT DAILY ESTIMATED NEEDS: Needs based on Andrea care+ HD 64.5kg abw 22-28 kcals/kg 8118-5028 total kcals 1.2-2 g protein/kg 77-129 g total protein 25-30 mL/kg 5083-2258 total fluid mLs NUTRITION DIAGNOSIS: Altered nutrition related lab values related to clinical status as evidenced by elev LD(877), elev WBC(26.1* trend up), elev BG(200's 300's), elevated lytes(phos, mg), elev renal labs (BUN now 83, creat 3.2), now on HD, elev LFT's CURRENT TF: Nepro @ 35ml/hr x 24 hrs ENTERAL NUTRITION RECOMMENDATIONS: Nepro @ 35ml/hr x24 hrs + Prosource 1pkt QD to provide 840ml, 1512 kcal, 68g pro, 611ml free H2O - Maintain current TF as tolerated - Add Prosource 1pkt daily to meet est protein needs - Flush per MD. HOB over 30 degrees ADDITIONAL RECOMMENDATIONS: 1) recalibrate bed scale wt for accurate CBW 2) Monitor lytes and renal fxn- now on HD, continue Nepro 3) Monitor BGs- 200's and 300's, now on Levemir BID + q 6hrs NovoLog +SSI 4) Rec bowel regimen (last bm 08/01) 5) Monitor hemodynamic stability: now on NE @ 2mcg . .
--- NOTE | 2020-08-12 10:02 | Pulmonology Progress Note ---
Subjective ROS Limited/Unobtainable: Yes Interval Events: Intubated 08/01/20 Constitutional: Reports: fever, other - low grade, Ul=851.6 HEENT: Repors: no symptoms Respiratory: Reports: no symptoms Cardiovascular: Reports: no symptoms Gastrointestinal/Abdominal: Reports: no symptoms; Denies: nausea, vomiting, diarrhea Musculoskeletal: Denies: pain Allergies: Coded Allergies: No Known Allergies (Unverified , 07/29/20) All Systems: reviewed and negative except above Objective Last 24 Hour Vital Signs Date Time Temp Pulse Resp B/P (MAP) Pulse Ox O2 Delivery O2 Flow Rate FiO2 08/12/20 09:00 100/57 08/12/20 08:00 100 08/12/20 08:00 109/62 08/12/20 07:00 99 20 116/66 (83) 91 08/12/20 07:00 116/60 08/12/20 06:30 94 19 129/73 (91) 92 08/12/20 06:00 21/69 08/12/20 06:00 98.7 97 19 121/69 (86) 95 08/12/20 05:54 100 135/72 08/12/20 05:30 101 22 129/69 (89) 98 08/12/20 05:00 104 22 128/70 (89) 97 08/12/20 05:00 128/70 08/12/20 04:30 101.0 107 22 126/64 (84) 96 08/12/20 04:29 101.0 08/12/20 04:00 101.4 109 22 114/62 (79) 95 08/12/20 04:00 128/70 08/12/20 04:00 100 08/12/20 04:00 109 08/12/20 04:00 Mechanical Ventilator 08/12/20 03:00 111 18 107/57 (74) 92 08/12/20 03:00 114/62 08/12/20 02:30 112 19 103/49 (67) 91 08/12/20 02:26 111 20 90 08/12/20 02:00 95/52 08/12/20 02:00 106 18 95/52 (66) 84 08/12/20 01:30 106 18 91/50 (64) 84 08/12/20 01:00 104 21 108/55 (72) 88 08/12/20 01:00 108/55 08/12/20 00:30 105 18 107/56 (73) 89 08/12/20 00:00 Mechanical Ventilator 08/12/20 00:00 115/62 08/12/20 00:00 100 08/12/20 00:00 99.9 102 20 115/62 (79) 91 08/12/20 00:00 102 08/11/20 23:30 104 19 120/62 (81) 89 08/11/20 23:04 104 16 90 08/11/20 23:00 104 19 122/68 (86) 89 08/11/20 23:00 122/68 08/11/20 22:30 101 20 125/63 (83) 90 08/11/20 22:00 100 20 133/71 (91) 92 08/11/20 22:00 133/71 08/11/20 22:00 100 125/63 08/11/20 21:30 100 20 127/67 (87) 92 08/11/20 21:00 124/63 08/11/20 21:00 99 20 124/63 (83) 93 08/11/20 20:30 100 20 145/76 (99) 94 08/11/20 20:00 100 08/11/20 20:00 134/70 08/11/20 20:00 99.0 100 20 134/70 (91) 92 08/11/20 20:00 Mechanical Ventilator 08/11/20 19:30 96 19 129/66 (87) 94 08/11/20 19:21 97 08/11/20 19:20 97 19 90 08/11/20 19:00 101 20 143/63 (89) 97 08/11/20 19:00 143/73 08/11/20 18:00 93 19 128/69 (88) 99 08/11/20 18:00 128/69 08/11/20 17:15 93 18 117/58 (77) 97 08/11/20 17:00 92 17 88/45 (59) 96 08/11/20 17:00 97/48 08/11/20 16:59 88/38 08/11/20 16:00 97 08/11/20 16:00 99.2 92 17 92/40 (57) 97 08/11/20 16:00 Mechanical Ventilator 08/11/20 16:00 100 08/11/20 15:00 96 17 109/60 (76) 97 08/11/20 14:00 93 18 112/62 (79) 97 08/11/20 13:20 92 17 100 08/11/20 13:00 101 17 118/67 (84) 98 08/11/20 12:00 99 08/11/20 12:00 100 08/11/20 12:00 Mechanical Ventilator 08/11/20 12:00 97.8 95 19 120/64 (82) 98 08/11/20 11:40 104 16 100 08/11/20 11:00 94 18 102/53 (69) 98 Intake and Output 08/11/20 08/12/20 19:00 07:00 Intake Total 1760.125 ml 1766.25 ml Output Total 840 ml 610 ml Balance 920.125 ml 1156.25 ml Free Water 90 ml IV Total 1320.125 ml 1286.25 ml Tube Feeding 350 ml 420 ml Other 60 ml Output Urine Total 840 ml 610 ml # Bowel Movements 1 General Appearance: no acute distress HEENT: normocephalic, atraumatic Respiratory: lungs clear Cardiovascular: normal rate, regular rhythm Abdomen: soft, non tender Laboratory Tests 08/11/20 17:11: POC Whole Blood Glucose 175H 08/11/20 20:45: POC Whole Blood Glucose [Pending] 08/12/20 06:02: White Blood Count 26.1*H, Red Blood Count 3.13L, Hemoglobin 10.2L, Hematocrit 30.8L, Mean Corpuscular Volume 98, Mean Corpuscular Hemoglobin 32.5H, Mean Corpuscular Hemoglobin Concent 33.1, Red Cell Distribution Width 12.1, Platelet Count 153, Mean Platelet Volume 8.3, Neutrophils (%) (Auto) , Lymphocytes (%) (Auto) , Monocytes (%) (Auto) , Eosinophils (%) (Auto) , Basophils (%) (Auto) , Differential Total Cells Counted 100, Neutrophils % (Manual) 90H, Lymphocytes % (Manual) 3L, Monocytes % (Manual) 7, Eosinophils % (Manual) 0, Basophils % (Manual) 0, Band Neutrophils 0, Platelet Estimate Adequate, Platelet Morphology Normal, Macrocytosis 1+, Sodium Level 136, Potassium Level 4.8, Chloride Level 100, Carbon Dioxide Level 33H, Anion Gap 3L, Blood Urea Nitrogen 83H, Creatinine 3.2H, Estimat Glomerular Filtration Rate 19.6, Glucose Level 268H, Calcium Level 7.6L, Phosphorus Level 5.3H, Magnesium Level 2.8H, Total Bilirubin 0.4, Gamma Glutamyl Transpeptidase 160H, Aspartate Amino Transf (AST/SGOT) 335H, Alanine Aminotransferase (ALT/SGPT) 81H, Alkaline Phosphatase 138H, C-Reactive Protein, Quantitative 5.1H, Pro-B-Type Natriuretic Peptide 5853H, Total Protein 5.0L, Albumin 1.7L, Globulin 3.3, Albumin/Globulin Ratio 0.5L Current Medications Medications (Trade) Dose Ordered Sig/Fabiano Route PRN Reason Start Time Stop Time Status Last Admin Dose Admin Acetaminophen (Tylenol) 650 mg Q4H PRN NG Temp >100.5 08/03/20 04:15 09/02/20 04:14 08/11/20 00:05 Acetaminophen (Tylenol) 650 mg Q4H PRN RECTAL Temp >100.5 08/01/20 20:30 08/31/20 20:29 08/12/20 03:59 Albuterol Sulfate (Proventil MDI) 2 puff Q4H PRN INH Shortness of Breath 07/29/20 22:45 10/27/20 22:44 Ceftriaxone Sodium 1 gm/ Dextrose 55 ml @ 110 mls/hr Q24H IVPB 08/07/20 10:00 08/14/20 09:59 08/12/20 09:12 Cetylpyridinium Chloride (Cepacol) 1 lozg Q2H PRN [place] For Cough 07/30/20 21:00 10/28/20 20:59 08/01/20 08:47 Chlorhexidine Gluconate (Marisela-Hex 2%) 1 applic DAILY@2000 TOPIC 08/08/20 20:00 11/06/20 19:59 08/11/20 19:34 Clonidine HCl (Catapres Tab) 0.1 mg Q2H PRN ORAL SBP > 170mmHg 08/04/20 09:45 11/02/20 09:44 08/07/20 23:20 Dextrose 1,000 ml @ 100 mls/hr Q10H IV 08/06/20 12:15 09/05/20 12:14 08/12/20 07:30 Dextrose (Dextrose 50%) 25 ml Q30M PRN IV Hypoglycemia 08/10/20 12:15 11/08/20 12:14 Dextrose (Dextrose 50%) 50 ml Q30M PRN IV Hypoglycemia 08/10/20 12:15 11/08/20 12:14 Diltiazem HCl (Cardizem Tab) 120 mg Q8HR GT 08/08/20 22:00 09/07/20 21:59 08/09/20 14:22 Docusate Sodium (Colace) 100 mg Q12HR GT 08/08/20 21:00 09/07/20 20:59 08/12/20 09:24 Enoxaparin Sodium (Lovenox) 30 mg DAILY SUBQ 08/02/20 10:00 10/31/20 09:59 08/12/20 09:11 Guaifenesin/ Dextromethorphan (Robitussin DM Syrup) 15 ml Q6H PRN ORAL For Cough 07/31/20 08:30 10/29/20 08:29 08/01/20 08:47 Insulin Aspart (NovoLOG) Q6HR SUBQ 08/06/20 12:00 11/04/20 11:59 08/12/20 05:53 Insulin Aspart (NovoLOG) 20 units EVERY 6 HOURS SUBQ 08/12/20 12:00 11/08/20 17:59 Insulin Detemir (Levemir) 30 units Q12HR SUBQ 08/10/20 21:00 11/04/20 20:59 08/11/20 20:55 Methylprednisolone Sodium Succinate (Solu-MEDROL) 40 mg EVERY 12 HOURS IVP 08/12/20 09:09 11/02/20 12:29 08/12/20 09:24 Norepinephrine Bitartrate 4 mg/ Sodium Chloride 250 ml @ 0 mls/hr Q24H PRN IV For hypotension 08/08/20 17:15 08/17/20 19:00 08/11/20 16:59 Pantoprazole (Protonix) 40 mg DAILY IVP 08/06/20 10:00 09/05/20 09:59 08/12/20 09:11 Polyethylene Glycol (Miralax) 17 gm BEDTIME ORAL 08/06/20 21:00 09/05/20 20:59 08/11/20 20:31 Vitamin D (Vitamin D) 5,000 unit DAILY GT 08/11/20 10:15 09/10/20 10:14 08/12/20 09:24 Assessment/Plan Assessment/Plan 1. Respiratory Failure - intubated 08/01/20 - oxygenating poorly - Continue PEEP 8 - continue 100% Fio2; will attempt to decrease 2. Hyponatremia - per primary MD 3. Hyperglycemia - BG control 5. Pneumonia - abx per ID - on dexamethasone (07/30-) - now on remdesivir per ID (08/01-) 6. COVID-19 rapid negative - COVID-19 PCR positive 7. Elevated inflammatory markers; ferritin, D-Dimer - likely secondary to #5 - On Lovenox Discussed with son Remains totally unresponsive; off all sedation Will need neurology eval Await head CT Has worsening of renal function Nephrology following Will likely need HD Grave prognosis Milton Antonio MD Aug 12, 2020 10:02
--- NOTE | 2020-08-12 10:26 | NUR ---
NURSE NOTES: Updated Dr Klein on pt's current condition.
--- NOTE | 2020-08-12 10:27 | Infectious Diseases Prog Note ---
Assessment/Plan Assessment/Plan A; Pneumonia,with COVID19 disease Leukocytosis worsening Acute renal failure Hyperkalemia Hypoxemia Lactic acidosis Elevated transaminase DM type 2 with Hyperglycemia Brain , no activity on EEG PLAN: 1. Continue Rocephin 2. Continue Solumedrol 3. Continue isolation. Subjective ROS Limited/Unobtainable: Yes Constitutional: Reports: fever, other - Ux=929.4 in am Cardiovascular: Reports: other - hypotensive on Levophed Allergies: Coded Allergies: No Known Allergies (Unverified , 07/29/20) Objective Last 24 Hour Vital Signs Date Time Temp Pulse Resp B/P (MAP) Pulse Ox O2 Delivery O2 Flow Rate FiO2 08/12/20 10:00 97 19 78/38 (51) 80 08/12/20 09:00 99 20 100/57 (71) 89 08/12/20 09:00 100/57 08/12/20 08:00 99.2 99 20 107/59 (75) 88 08/12/20 08:00 Mechanical Ventilator 08/12/20 08:00 100 08/12/20 08:00 109/62 08/12/20 07:00 99 20 116/66 (83) 91 08/12/20 07:00 116/60 08/12/20 06:30 94 19 129/73 (91) 92 08/12/20 06:00 21/69 08/12/20 06:00 98.7 97 19 121/69 (86) 95 08/12/20 05:54 100 135/72 08/12/20 05:30 101 22 129/69 (89) 98 08/12/20 05:00 104 22 128/70 (89) 97 08/12/20 05:00 128/70 08/12/20 04:30 101.0 107 22 126/64 (84) 96 08/12/20 04:29 101.0 08/12/20 04:00 101.4 109 22 114/62 (79) 95 08/12/20 04:00 128/70 08/12/20 04:00 100 08/12/20 04:00 109 08/12/20 04:00 Mechanical Ventilator 08/12/20 03:00 111 18 107/57 (74) 92 08/12/20 03:00 114/62 08/12/20 02:30 112 19 103/49 (67) 91 08/12/20 02:26 111 20 90 08/12/20 02:00 95/52 08/12/20 02:00 106 18 95/52 (66) 84 08/12/20 01:30 106 18 91/50 (64) 84 08/12/20 01:00 104 21 108/55 (72) 88 08/12/20 01:00 108/55 08/12/20 00:30 105 18 107/56 (73) 89 08/12/20 00:00 Mechanical Ventilator 08/12/20 00:00 115/62 08/12/20 00:00 100 08/12/20 00:00 99.9 102 20 115/62 (79) 91 08/12/20 00:00 102 08/11/20 23:30 104 19 120/62 (81) 89 08/11/20 23:04 104 16 90 08/11/20 23:00 104 19 122/68 (86) 89 08/11/20 23:00 122/68 08/11/20 22:30 101 20 125/63 (83) 90 08/11/20 22:00 100 20 133/71 (91) 92 08/11/20 22:00 133/71 08/11/20 22:00 100 125/63 08/11/20 21:30 100 20 127/67 (87) 92 08/11/20 21:00 124/63 08/11/20 21:00 99 20 124/63 (83) 93 08/11/20 20:30 100 20 145/76 (99) 94 08/11/20 20:00 100 08/11/20 20:00 134/70 08/11/20 20:00 99.0 100 20 134/70 (91) 92 08/11/20 20:00 Mechanical Ventilator 08/11/20 19:30 96 19 129/66 (87) 94 08/11/20 19:21 97 08/11/20 19:20 97 19 90 08/11/20 19:00 101 20 143/63 (89) 97 08/11/20 19:00 143/73 08/11/20 18:00 93 19 128/69 (88) 99 08/11/20 18:00 128/69 08/11/20 17:15 93 18 117/58 (77) 97 08/11/20 17:00 92 17 88/45 (59) 96 08/11/20 17:00 97/48 08/11/20 16:59 88/38 08/11/20 16:00 97 08/11/20 16:00 99.2 92 17 92/40 (57) 97 08/11/20 16:00 Mechanical Ventilator 08/11/20 16:00 100 08/11/20 15:00 96 17 109/60 (76) 97 08/11/20 14:00 93 18 112/62 (79) 97 08/11/20 13:20 92 17 100 08/11/20 13:00 101 17 118/67 (84) 98 08/11/20 12:00 99 08/11/20 12:00 100 08/11/20 12:00 Mechanical Ventilator 08/11/20 12:00 97.8 95 19 120/64 (82) 98 08/11/20 11:40 104 16 100 08/11/20 11:00 94 18 102/53 (69) 98 Height (Feet): 5 Height (Inches): 5.00 Weight (Pounds): 160 HEENT: other - orally intubated Respiratory/Chest: other - on ventilator, KAF7=805% Cardiovascular: normal rate, other - RIJ HDline, Left arm PICC line Abdomen: soft, non tender Neurologic/Psychiatric: other - no reflexes Laboratory Tests Test 08/11/20 17:11 08/11/20 20:45 08/12/20 06:02 POC Whole Blood Glucose 175 MG/DL (74-106) H Pending White Blood Count 26.1 K/UL (4.8-10.8) *H Red Blood Count 3.13 M/UL (4.70-6.10) L Hemoglobin 10.2 G/DL (14.2-18.0) L Hematocrit 30.8 % (42.0-52.0) L Mean Corpuscular Volume 98 FL (80-99) Mean Corpuscular Hemoglobin 32.5 PG (27.0-31.0) H Mean Corpuscular Hemoglobin Concent 33.1 G/DL (32.0-36.0) Red Cell Distribution Width 12.1 % (11.6-14.8) Platelet Count 153 K/UL (150-450) Mean Platelet Volume 8.3 FL (6.5-10.1) Neutrophils (%) (Auto) % (45.0-75.0) Lymphocytes (%) (Auto) % (20.0-45.0) Monocytes (%) (Auto) % (1.0-10.0) Eosinophils (%) (Auto) % (0.0-3.0) Basophils (%) (Auto) % (0.0-2.0) Differential Total Cells Counted 100 Neutrophils % (Manual) 90 % (45-75) H Lymphocytes % (Manual) 3 % (20-45) L Monocytes % (Manual) 7 % (1-10) Eosinophils % (Manual) 0 % (0-3) Basophils % (Manual) 0 % (0-2) Band Neutrophils 0 % (0-8) Platelet Estimate Adequate Platelet Morphology Normal Macrocytosis 1+ Sodium Level 136 MMOL/L (136-145) Potassium Level 4.8 MMOL/L (3.5-5.1) Chloride Level 100 MMOL/L (98-107) Carbon Dioxide Level 33 MMOL/L (21-32) H Anion Gap 3 mmol/L (5-15) L Blood Urea Nitrogen 83 mg/dL (7-18) H Creatinine 3.2 MG/DL (0.55-1.30) H Estimat Glomerular Filtration Rate 19.6 mL/min (>60) Glucose Level 268 MG/DL (74-106) H Calcium Level 7.6 MG/DL (8.5-10.1) L Phosphorus Level 5.3 MG/DL (2.5-4.9) H Magnesium Level 2.8 MG/DL (1.8-2.4) H Total Bilirubin 0.4 MG/DL (0.2-1.0) Gamma Glutamyl Transpeptidase 160 U/L (5-85) H Aspartate Amino Transf (AST/SGOT) 335 U/L (15-37) H Alanine Aminotransferase (ALT/SGPT) 81 U/L (12-78) H Alkaline Phosphatase 138 U/L (46-116) H C-Reactive Protein, Quantitative 5.1 mg/dL (0.00-0.90) H Pro-B-Type Natriuretic Peptide 5853 pg/mL (0-125) H Total Protein 5.0 G/DL (6.4-8.2) L Albumin 1.7 G/DL (3.4-5.0) L Globulin 3.3 g/dL Albumin/Globulin Ratio 0.5 (1.0-2.7) L Current Medications Medications (Trade) Dose Ordered Sig/Fabiano Route PRN Reason Start Time Stop Time Status Last Admin Dose Admin Acetaminophen (Tylenol) 650 mg Q4H PRN NG Temp >100.5 08/03/20 04:15 09/02/20 04:14 08/11/20 00:05 Acetaminophen (Tylenol) 650 mg Q4H PRN RECTAL Temp >100.5 08/01/20 20:30 08/31/20 20:29 08/12/20 03:59 Albuterol Sulfate (Proventil MDI) 2 puff Q4H PRN INH Shortness of Breath 07/29/20 22:45 10/27/20 22:44 Ceftriaxone Sodium 1 gm/ Dextrose 55 ml @ 110 mls/hr Q24H IVPB 08/07/20 10:00 08/14/20 09:59 08/12/20 09:12 Cetylpyridinium Chloride (Cepacol) 1 lozg Q2H PRN [place] For Cough 07/30/20 21:00 10/28/20 20:59 08/01/20 08:47 Chlorhexidine Gluconate (Marisela-Hex 2%) 1 applic DAILY@2000 TOPIC 08/08/20 20:00 11/06/20 19:59 08/11/20 19:34 Clonidine HCl (Catapres Tab) 0.1 mg Q2H PRN ORAL SBP > 170mmHg 08/04/20 09:45 11/02/20 09:44 08/07/20 23:20 Dextrose 1,000 ml @ 100 mls/hr Q10H IV 08/06/20 12:15 09/05/20 12:14 08/12/20 07:30 Dextrose (Dextrose 50%) 25 ml Q30M PRN IV Hypoglycemia 08/10/20 12:15 11/08/20 12:14 Dextrose (Dextrose 50%) 50 ml Q30M PRN IV Hypoglycemia 08/10/20 12:15 11/08/20 12:14 Diltiazem HCl (Cardizem Tab) 120 mg Q8HR GT 08/08/20 22:00 09/07/20 21:59 08/09/20 14:22 Docusate Sodium (Colace) 100 mg Q12HR GT 08/08/20 21:00 09/07/20 20:59 08/12/20 09:24 Enoxaparin Sodium (Lovenox) 30 mg DAILY SUBQ 08/02/20 10:00 10/31/20 09:59 08/12/20 09:11 Guaifenesin/ Dextromethorphan (Robitussin DM Syrup) 15 ml Q6H PRN ORAL For Cough 07/31/20 08:30 10/29/20 08:29 08/01/20 08:47 Insulin Aspart (NovoLOG) Q6HR SUBQ 08/06/20 12:00 11/04/20 11:59 08/12/20 05:53 Insulin Aspart (NovoLOG) 20 units EVERY 6 HOURS SUBQ 08/12/20 12:00 11/08/20 17:59 Insulin Detemir (Levemir) 30 units Q12HR SUBQ 08/10/20 21:00 11/04/20 20:59 08/12/20 10:01 Methylprednisolone Sodium Succinate (Solu-MEDROL) 40 mg EVERY 12 HOURS IVP 08/12/20 09:09 11/02/20 12:29 08/12/20 09:24 Norepinephrine Bitartrate 4 mg/ Sodium Chloride 250 ml @ 0 mls/hr Q24H PRN IV For hypotension 08/08/20 17:15 08/17/20 19:00 08/11/20 16:59 Pantoprazole (Protonix) 40 mg DAILY IVP 08/06/20 10:00 09/05/20 09:59 08/12/20 09:11 Polyethylene Glycol (Miralax) 17 gm BEDTIME ORAL 08/06/20 21:00 09/05/20 20:59 08/11/20 20:31 Vitamin D (Vitamin D) 5,000 unit DAILY GT 08/11/20 10:15 09/10/20 10:14 08/12/20 09:24 Jose Antonio Klein MD Aug 12, 2020 10:27
--- NOTE | 2020-08-12 10:59 | Cardiac Electrophysiology PN ---
Assessment/Plan Assessment/Plan 1. Bradycardia off any sinus-galen or AV-galen blocking agents. Resolved. Tolerating Cardizem. Echocardiogram EF 60% 2. Atral fib with RVR. On Cardizem 120 tid. Can't use Amiodarone for shock liver that is improving 3. Respiratory failure due to Covid PNA intubated on 100% Fio2 and PEEP 8 4. Acute renal failure with BUN/Cr 129/4.2 S/P Right IJ Kevin 5. Shock Liver with AST and ALT >1100. Better now 6. Sepsis. White count still 26,000 on IV antibiotic 7. Comatose. S/P EEG. Awaiting Neuro eval DW RN Subjective Subjective In ICU intubated on 100% Fio2 and PEEP 8. Had atrial fib with RVR and started on Cardizem drip that was DCed EF 60%. On Cardizem 120 tid. S/P Right IJ Kevin by Radiology at bedside in ICU Comatose with no activity on EEG. Awaiting brain eval by Neuro Objective Last 24 Hour Vital Signs Date Time Temp Pulse Resp B/P (MAP) Pulse Ox O2 Delivery O2 Flow Rate FiO2 08/12/20 10:00 97 19 78/38 (51) 80 08/12/20 09:00 99 20 100/57 (71) 89 08/12/20 09:00 100/57 08/12/20 08:00 99.2 99 20 107/59 (75) 88 08/12/20 08:00 Mechanical Ventilator 08/12/20 08:00 100 08/12/20 08:00 109/62 08/12/20 07:00 99 20 116/66 (83) 91 08/12/20 07:00 116/60 08/12/20 06:30 94 19 129/73 (91) 92 08/12/20 06:00 21/69 08/12/20 06:00 98.7 97 19 121/69 (86) 95 08/12/20 05:54 100 135/72 08/12/20 05:30 101 22 129/69 (89) 98 08/12/20 05:00 104 22 128/70 (89) 97 08/12/20 05:00 128/70 08/12/20 04:30 101.0 107 22 126/64 (84) 96 08/12/20 04:29 101.0 08/12/20 04:00 101.4 109 22 114/62 (79) 95 08/12/20 04:00 128/70 08/12/20 04:00 100 08/12/20 04:00 109 08/12/20 04:00 Mechanical Ventilator 08/12/20 03:00 111 18 107/57 (74) 92 08/12/20 03:00 114/62 08/12/20 02:30 112 19 103/49 (67) 91 08/12/20 02:26 111 20 90 08/12/20 02:00 95/52 08/12/20 02:00 106 18 95/52 (66) 84 08/12/20 01:30 106 18 91/50 (64) 84 08/12/20 01:00 104 21 108/55 (72) 88 08/12/20 01:00 108/55 08/12/20 00:30 105 18 107/56 (73) 89 08/12/20 00:00 Mechanical Ventilator 08/12/20 00:00 115/62 08/12/20 00:00 100 08/12/20 00:00 99.9 102 20 115/62 (79) 91 08/12/20 00:00 102 08/11/20 23:30 104 19 120/62 (81) 89 08/11/20 23:04 104 16 90 08/11/20 23:00 104 19 122/68 (86) 89 08/11/20 23:00 122/68 08/11/20 22:30 101 20 125/63 (83) 90 08/11/20 22:00 100 20 133/71 (91) 92 08/11/20 22:00 133/71 08/11/20 22:00 100 125/63 08/11/20 21:30 100 20 127/67 (87) 92 08/11/20 21:00 124/63 08/11/20 21:00 99 20 124/63 (83) 93 08/11/20 20:30 100 20 145/76 (99) 94 08/11/20 20:00 100 08/11/20 20:00 134/70 08/11/20 20:00 99.0 100 20 134/70 (91) 92 08/11/20 20:00 Mechanical Ventilator 08/11/20 19:30 96 19 129/66 (87) 94 08/11/20 19:21 97 08/11/20 19:20 97 19 90 08/11/20 19:00 101 20 143/63 (89) 97 08/11/20 19:00 143/73 08/11/20 18:00 93 19 128/69 (88) 99 08/11/20 18:00 128/69 08/11/20 17:15 93 18 117/58 (77) 97 08/11/20 17:00 92 17 88/45 (59) 96 08/11/20 17:00 97/48 08/11/20 16:59 88/38 08/11/20 16:00 97 08/11/20 16:00 99.2 92 17 92/40 (57) 97 08/11/20 16:00 Mechanical Ventilator 08/11/20 16:00 100 08/11/20 15:00 96 17 109/60 (76) 97 08/11/20 14:00 93 18 112/62 (79) 97 08/11/20 13:20 92 17 100 08/11/20 13:00 101 17 118/67 (84) 98 08/11/20 12:00 99 08/11/20 12:00 100 08/11/20 12:00 Mechanical Ventilator 08/11/20 12:00 97.8 95 19 120/64 (82) 98 08/11/20 11:40 104 16 100 08/11/20 11:00 94 18 102/53 (69) 98 Intake and Output 08/11/20 08/12/20 19:00 07:00 Intake Total 1760.125 ml 1766.25 ml Output Total 840 ml 610 ml Balance 920.125 ml 1156.25 ml Free Water 90 ml IV Total 1320.125 ml 1286.25 ml Tube Feeding 350 ml 420 ml Other 60 ml Output Urine Total 840 ml 610 ml # Bowel Movements 1 Laboratory Tests Test 08/11/20 17:11 08/11/20 20:45 08/12/20 06:02 POC Whole Blood Glucose 175 MG/DL (74-106) H Pending White Blood Count 26.1 K/UL (4.8-10.8) *H Red Blood Count 3.13 M/UL (4.70-6.10) L Hemoglobin 10.2 G/DL (14.2-18.0) L Hematocrit 30.8 % (42.0-52.0) L Mean Corpuscular Volume 98 FL (80-99) Mean Corpuscular Hemoglobin 32.5 PG (27.0-31.0) H Mean Corpuscular Hemoglobin Concent 33.1 G/DL (32.0-36.0) Red Cell Distribution Width 12.1 % (11.6-14.8) Platelet Count 153 K/UL (150-450) Mean Platelet Volume 8.3 FL (6.5-10.1) Neutrophils (%) (Auto) % (45.0-75.0) Lymphocytes (%) (Auto) % (20.0-45.0) Monocytes (%) (Auto) % (1.0-10.0) Eosinophils (%) (Auto) % (0.0-3.0) Basophils (%) (Auto) % (0.0-2.0) Differential Total Cells Counted 100 Neutrophils % (Manual) 90 % (45-75) H Lymphocytes % (Manual) 3 % (20-45) L Monocytes % (Manual) 7 % (1-10) Eosinophils % (Manual) 0 % (0-3) Basophils % (Manual) 0 % (0-2) Band Neutrophils 0 % (0-8) Platelet Estimate Adequate Platelet Morphology Normal Macrocytosis 1+ Sodium Level 136 MMOL/L (136-145) Potassium Level 4.8 MMOL/L (3.5-5.1) Chloride Level 100 MMOL/L (98-107) Carbon Dioxide Level 33 MMOL/L (21-32) H Anion Gap 3 mmol/L (5-15) L Blood Urea Nitrogen 83 mg/dL (7-18) H Creatinine 3.2 MG/DL (0.55-1.30) H Estimat Glomerular Filtration Rate 19.6 mL/min (>60) Glucose Level 268 MG/DL (74-106) H Calcium Level 7.6 MG/DL (8.5-10.1) L Phosphorus Level 5.3 MG/DL (2.5-4.9) H Magnesium Level 2.8 MG/DL (1.8-2.4) H Total Bilirubin 0.4 MG/DL (0.2-1.0) Gamma Glutamyl Transpeptidase 160 U/L (5-85) H Aspartate Amino Transf (AST/SGOT) 335 U/L (15-37) H Alanine Aminotransferase (ALT/SGPT) 81 U/L (12-78) H Alkaline Phosphatase 138 U/L (46-116) H C-Reactive Protein, Quantitative 5.1 mg/dL (0.00-0.90) H Pro-B-Type Natriuretic Peptide 5853 pg/mL (0-125) H Total Protein 5.0 G/DL (6.4-8.2) L Albumin 1.7 G/DL (3.4-5.0) L Globulin 3.3 g/dL Albumin/Globulin Ratio 0.5 (1.0-2.7) L Objective HEAD AND NECK: Showed no JVD. LUNGS: Clear. CARDIOVASCULAR: Shows regular S1 and S2 with no gallop. ABDOMEN: Soft. EXTREMITIES: No pitting edema. Navjot Bains MD Aug 12, 2020 10:59
--- NOTE | 2020-08-12 11:24 | Surgery Progress Note ---
Surgery Progress Note Subjective Additional Comments peep 8, fi02 100% sat 70's brain line in Objective Last 24 Hour Vital Signs Date Time Temp Pulse Resp B/P (MAP) Pulse Ox O2 Delivery O2 Flow Rate FiO2 08/12/20 11:00 93/53 08/12/20 11:00 98 20 93/53 (66) 69 08/12/20 10:00 97 19 78/38 (51) 80 08/12/20 09:00 99 20 100/57 (71) 89 08/12/20 09:00 100/57 08/12/20 08:00 99.2 99 20 107/59 (75) 88 08/12/20 08:00 Mechanical Ventilator 08/12/20 08:00 100 08/12/20 08:00 109/62 08/12/20 08:00 111 08/12/20 07:00 99 20 116/66 (83) 91 08/12/20 07:00 116/60 08/12/20 06:30 94 19 129/73 (91) 92 08/12/20 06:00 2108/12/20 06:00 98.7 97 19 121/69 (86) 95 08/12/20 05:54 100 135/72 08/12/20 05:30 101 22 129/69 (89) 98 08/12/20 05:00 104 22 128/70 (89) 97 08/12/20 05:00 128/70 08/12/20 04:30 101.0 107 22 126/64 (84) 96 08/12/20 04:29 101.0 08/12/20 04:00 101.4 109 22 114/62 (79) 95 08/12/20 04:00 128/70 08/12/20 04:00 100 08/12/20 04:00 109 08/12/20 04:00 Mechanical Ventilator 08/12/20 03:00 111 18 107/57 (74) 92 08/12/20 03:00 114/62 08/12/20 02:30 112 19 103/49 (67) 91 08/12/20 02:26 111 20 90 08/12/20 02:00 95/52 08/12/20 02:00 106 18 95/52 (66) 84 08/12/20 01:30 106 18 91/50 (64) 84 08/12/20 01:00 104 21 108/55 (72) 88 08/12/20 01:00 108/55 08/12/20 00:30 105 18 107/56 (73) 89 08/12/20 00:00 Mechanical Ventilator 08/12/20 00:00 115/62 08/12/20 00:00 100 08/12/20 00:00 99.9 102 20 115/62 (79) 91 08/12/20 00:00 102 08/11/20 23:30 104 19 120/62 (81) 89 08/11/20 23:04 104 16 90 08/11/20 23:00 104 19 122/68 (86) 89 08/11/20 23:00 122/68 08/11/20 22:30 101 20 125/63 (83) 90 08/11/20 22:00 100 20 133/71 (91) 92 08/11/20 22:00 133/71 08/11/20 22:00 100 125/63 08/11/20 21:30 100 20 127/67 (87) 92 08/11/20 21:00 124/63 08/11/20 21:00 99 20 124/63 (83) 93 08/11/20 20:30 100 20 145/76 (99) 94 08/11/20 20:00 100 08/11/20 20:00 134/70 08/11/20 20:00 99.0 100 20 134/70 (91) 92 08/11/20 20:00 Mechanical Ventilator 08/11/20 19:30 96 19 129/66 (87) 94 08/11/20 19:21 97 08/11/20 19:20 97 19 90 08/11/20 19:00 101 20 143/63 (89) 97 08/11/20 19:00 143/73 08/11/20 18:00 93 19 128/69 (88) 99 08/11/20 18:00 128/69 08/11/20 17:15 93 18 117/58 (77) 97 08/11/20 17:00 92 17 88/45 (59) 96 08/11/20 17:00 97/48 08/11/20 16:59 88/38 08/11/20 16:00 97 08/11/20 16:00 99.2 92 17 92/40 (57) 97 08/11/20 16:00 Mechanical Ventilator 08/11/20 16:00 100 08/11/20 15:00 96 17 109/60 (76) 97 08/11/20 14:00 93 18 112/62 (79) 97 08/11/20 13:20 92 17 100 08/11/20 13:00 101 17 118/67 (84) 98 08/11/20 12:00 99 08/11/20 12:00 100 08/11/20 12:00 Mechanical Ventilator 08/11/20 12:00 97.8 95 19 120/64 (82) 98 08/11/20 11:40 104 16 100 I&O Intake and Output 08/11/20 08/12/20 18:59 06:59 Intake Total 1752.625 ml 1766.25 ml Output Total 770 ml 680 ml Balance 982.625 ml 1086.25 ml Free Water 90 ml IV Total 1312.625 ml 1286.25 ml Tube Feeding 350 ml 420 ml Other 60 ml Output Urine Total 770 ml 680 ml # Bowel Movements 1 Dressing: other Wound: other Cardiovascular: RSR Respiratory: decreased breath sounds Abdomen: soft, non-tender, present bowel sounds Extremities: no tenderness, no cyanosis Laboratory Tests Test 08/11/20 17:11 08/11/20 20:45 08/12/20 06:02 POC Whole Blood Glucose 175 MG/DL (74-106) H Pending White Blood Count 26.1 K/UL (4.8-10.8) *H Red Blood Count 3.13 M/UL (4.70-6.10) L Hemoglobin 10.2 G/DL (14.2-18.0) L Hematocrit 30.8 % (42.0-52.0) L Mean Corpuscular Volume 98 FL (80-99) Mean Corpuscular Hemoglobin 32.5 PG (27.0-31.0) H Mean Corpuscular Hemoglobin Concent 33.1 G/DL (32.0-36.0) Red Cell Distribution Width 12.1 % (11.6-14.8) Platelet Count 153 K/UL (150-450) Mean Platelet Volume 8.3 FL (6.5-10.1) Neutrophils (%) (Auto) % (45.0-75.0) Lymphocytes (%) (Auto) % (20.0-45.0) Monocytes (%) (Auto) % (1.0-10.0) Eosinophils (%) (Auto) % (0.0-3.0) Basophils (%) (Auto) % (0.0-2.0) Differential Total Cells Counted 100 Neutrophils % (Manual) 90 % (45-75) H Lymphocytes % (Manual) 3 % (20-45) L Monocytes % (Manual) 7 % (1-10) Eosinophils % (Manual) 0 % (0-3) Basophils % (Manual) 0 % (0-2) Band Neutrophils 0 % (0-8) Platelet Estimate Adequate Platelet Morphology Normal Macrocytosis 1+ Sodium Level 136 MMOL/L (136-145) Potassium Level 4.8 MMOL/L (3.5-5.1) Chloride Level 100 MMOL/L (98-107) Carbon Dioxide Level 33 MMOL/L (21-32) H Anion Gap 3 mmol/L (5-15) L Blood Urea Nitrogen 83 mg/dL (7-18) H Creatinine 3.2 MG/DL (0.55-1.30) H Estimat Glomerular Filtration Rate 19.6 mL/min (>60) Glucose Level 268 MG/DL (74-106) H Calcium Level 7.6 MG/DL (8.5-10.1) L Phosphorus Level 5.3 MG/DL (2.5-4.9) H Magnesium Level 2.8 MG/DL (1.8-2.4) H Total Bilirubin 0.4 MG/DL (0.2-1.0) Gamma Glutamyl Transpeptidase 160 U/L (5-85) H Aspartate Amino Transf (AST/SGOT) 335 U/L (15-37) H Alanine Aminotransferase (ALT/SGPT) 81 U/L (12-78) H Alkaline Phosphatase 138 U/L (46-116) H C-Reactive Protein, Quantitative 5.1 mg/dL (0.00-0.90) H Pro-B-Type Natriuretic Peptide 5853 pg/mL (0-125) H Total Protein 5.0 G/DL (6.4-8.2) L Albumin 1.7 G/DL (3.4-5.0) L Globulin 3.3 g/dL Albumin/Globulin Ratio 0.5 (1.0-2.7) L Plan Problems: (1) Hypoxia (2) Bilateral pneumonia (3) Acute respiratory failure with hypoxia Assessment & Plan: ards covid negative as per pulm id input appreciated abd pain likely cramping indigestion from ill ness ppi ordered okay for diet monitor intake am labs will follow with exam and recs acute decline intubated in ICU on vent liver insufficiency acute hepatic in sufficiency renal insufficiency no acute surgical intervention needs resuscitation meds reviewed (4) Bradycardia (5) Malnutrition Assessment & Plan: DAILY ESTIMATED NEEDS: Needs based on [facility] care 64.5kg abw 22-28 kcals/kg 7687-9802 total kcals 1.2-2 g protein/kg 77-129 g total protein 25-30 mL/kg 2357-9580 total fluid mLs NUTRITION DIAGNOSIS: Altered nutrition related lab values related to clinical status as evidenced by elev LD(665), elev WBC(trending down 17.7), elev BG(132-176), elevated lytes(K, phos, mg), elev renal labs (BUN73, creat 3.2), elev LFT's ENTERAL NUTRITION RECOMMENDATIONS: As medically able, rec non oral feeds: NEPRO @35ml/hr x24 hrs to provide 840ml, 1512 kcal, 68g pro, 611ml free H2O - With hemodynamic stability, rec OGt feeds to meet est needs. - Start Nepro @15ml/hr for 6 hrs, advance as tolerated 10ml/hr q4-6 hrs to goal - Flush per . HOB over 30 degrees - When tolerating TF at goal, add Prosource 1 pack daily to better meet est pro needs. ADDITIONAL RECOMMENDATIONS: 1) recalibrate bed scale wt for accurate CBW 2) Monitor BG, need for NISS 3) TF recs as above when stable for feeds . (6) Shock liver Assessment & Plan: worsening lft's likely hydration resuscitation trend labs improving (7) ERIKA (acute kidney injury) Vern Quevedo Aug 12, 2020 11:24
--- NOTE | 2020-08-12 11:28 | Nephrology Progress Note ---
Assessment/Plan Problem List: (1) ERIKA (acute kidney injury) (2) Shock liver (3) Acute respiratory failure with hypoxia (4) Bilateral pneumonia Assessment Acute renal failure. Most likely due to hypotensive and shock from 8 PM last night to 5 AM this morning. Hyperkalemia. Acute hypoxic respiratory failure. Pneumonia with COVID-19. Elevated transaminase, most likely shock liver. Plan August 12: Labs reviewed. Patient dialyzed yesterday. Discussed with RN. Patient had EEG done last night which appears to have no brain activity. Waiting for neuro advice regarding brain activity. Will discontinue dialysis plans if the patient considered brain . August 11: Lab reviewed. Renal parameters worsening. Due for insertion of dialysis catheter today. Patient's head CT scan was not done due to change in condition. Vitamin D supplements started for low vitamin D level. August 10: Lab reviewed. Renal parameters worsening. Patient unresponsive. Remains on ventilator. Remains full code. Due for CT scan of the head. Will plan for dialysis catheter and dialysis should the head CT results are desirable. Discussed with CARLOS Laurent. August 09: Labs reviewed. Potassium elevated. Kayexalate given. Serum sodium gradually improving. Continue D5W. Continue per consultants. Continue monitor renal parameters and electrolytes. August 08: Labs reviewed. Renal parameters stable. Abnormal electrolytes noted. Continue current management. Albumin bolus given. Continue to monitor current state August 07: Labs reviewed. Neutra-Phos via NG tube given. Serum sodium and serum potassium lowering. Medication list reviewed. Levemir and Cardizem doses were adjusted by consultants. Continue to monitor renal parameters. August 06: Labs reviewed. Serum potassium 5.2. Serum sodium 152. Will change IV to D5W. Will start with the Levemir 10 mg nightly. August 05: Labs reviewed. Renal parameters improving. LFTs gradually improving. IV changed to half-normal saline. Continue to monitor blood sugar. Continue to monitor renal parameters. Patient full code. Cardizem dose increased. August 04: Renal parameters improving. LFTs remain elevated. Hemodynamically stable. Continue to monitor renal parameters. Continue per consultants. Discussed with CARLOS Greene. August 03: Patient intubated on ventilator. Renal parameters worsening. LFTs elevated. Patient is deteriorating. Will consider dialysis treatment if no reversal of kidney failure. Discussed with CARLOS Alexis. Previously: Albumin bolus Increase IV fluid Kayexalate for high potassium Monitor renal parameters Subjective ROS Limited/Unobtainable: Yes Objective Objective Last 24 Hour Vital Signs Date Time Temp Pulse Resp B/P (MAP) Pulse Ox O2 Delivery O2 Flow Rate FiO2 08/12/20 11:00 93/53 08/12/20 11:00 98 20 93/53 (66) 69 08/12/20 10:00 97 19 78/38 (51) 80 08/12/20 09:00 99 20 100/57 (71) 89 08/12/20 09:00 100/57 08/12/20 08:00 99.2 99 20 107/59 (75) 88 08/12/20 08:00 Mechanical Ventilator 08/12/20 08:00 100 08/12/20 08:00 109/62 08/12/20 08:00 111 08/12/20 07:00 99 20 116/66 (83) 91 08/12/20 07:00 116/60 08/12/20 06:30 94 19 129/73 (91) 92 08/12/20 06:00 21/69 08/12/20 06:00 98.7 97 19 121/69 (86) 95 08/12/20 05:54 100 135/72 08/12/20 05:30 101 22 129/69 (89) 98 08/12/20 05:00 104 22 128/70 (89) 97 08/12/20 05:00 128/70 08/12/20 04:30 101.0 107 22 126/64 (84) 96 08/12/20 04:29 101.0 08/12/20 04:00 101.4 109 22 114/62 (79) 95 08/12/20 04:00 128/70 08/12/20 04:00 100 08/12/20 04:00 109 08/12/20 04:00 Mechanical Ventilator 08/12/20 03:00 111 18 107/57 (74) 92 08/12/20 03:00 114/62 08/12/20 02:30 112 19 103/49 (67) 91 08/12/20 02:26 111 20 90 08/12/20 02:00 95/52 08/12/20 02:00 106 18 95/52 (66) 84 08/12/20 01:30 106 18 91/50 (64) 84 08/12/20 01:00 104 21 108/55 (72) 88 08/12/20 01:00 108/55 08/12/20 00:30 105 18 107/56 (73) 89 08/12/20 00:00 Mechanical Ventilator 08/12/20 00:00 115/62 08/12/20 00:00 100 08/12/20 00:00 99.9 102 20 115/62 (79) 91 08/12/20 00:00 102 08/11/20 23:30 104 19 120/62 (81) 89 08/11/20 23:04 104 16 90 08/11/20 23:00 104 19 122/68 (86) 89 08/11/20 23:00 122/68 08/11/20 22:30 101 20 125/63 (83) 90 08/11/20 22:00 100 20 133/71 (91) 92 08/11/20 22:00 133/71 08/11/20 22:00 100 125/63 08/11/20 21:30 100 20 127/67 (87) 92 08/11/20 21:00 124/63 08/11/20 21:00 99 20 124/63 (83) 93 08/11/20 20:30 100 20 145/76 (99) 94 08/11/20 20:00 100 08/11/20 20:00 134/70 08/11/20 20:00 99.0 100 20 134/70 (91) 92 08/11/20 20:00 Mechanical Ventilator 08/11/20 19:30 96 19 129/66 (87) 94 08/11/20 19:21 97 08/11/20 19:20 97 19 90 08/11/20 19:00 101 20 143/63 (89) 97 08/11/20 19:00 143/73 08/11/20 18:00 93 19 128/69 (88) 99 08/11/20 18:00 128/69 08/11/20 17:15 93 18 117/58 (77) 97 08/11/20 17:00 92 17 88/45 (59) 96 08/11/20 17:00 97/48 08/11/20 16:59 88/38 08/11/20 16:00 97 08/11/20 16:00 99.2 92 17 92/40 (57) 97 08/11/20 16:00 Mechanical Ventilator 08/11/20 16:00 100 08/11/20 15:00 96 17 109/60 (76) 97 08/11/20 14:00 93 18 112/62 (79) 97 08/11/20 13:20 92 17 100 08/11/20 13:00 101 17 118/67 (84) 98 08/11/20 12:00 99 08/11/20 12:00 100 08/11/20 12:00 Mechanical Ventilator 08/11/20 12:00 97.8 95 19 120/64 (82) 98 08/11/20 11:40 104 16 100 Intake and Output 08/11/20 08/12/20 19:00 07:00 Intake Total 1760.125 ml 1766.25 ml Output Total 840 ml 610 ml Balance 920.125 ml 1156.25 ml Free Water 90 ml IV Total 1320.125 ml 1286.25 ml Tube Feeding 350 ml 420 ml Other 60 ml Output Urine Total 840 ml 610 ml # Bowel Movements 1 Current Medications Medications (Trade) Dose Ordered Sig/Fabiano Route PRN Reason Start Time Stop Time Status Last Admin Dose Admin Acetaminophen (Tylenol) 650 mg Q4H PRN NG Temp >100.5 08/03/20 04:15 09/02/20 04:14 08/11/20 00:05 Acetaminophen (Tylenol) 650 mg Q4H PRN RECTAL Temp >100.5 08/01/20 20:30 08/31/20 20:29 08/12/20 03:59 Albuterol Sulfate (Proventil MDI) 2 puff Q4H PRN INH Shortness of Breath 07/29/20 22:45 10/27/20 22:44 Ceftriaxone Sodium 1 gm/ Dextrose 55 ml @ 110 mls/hr Q24H IVPB 08/07/20 10:00 08/14/20 09:59 08/12/20 09:12 Cetylpyridinium Chloride (Cepacol) 1 lozg Q2H PRN [place] For Cough 07/30/20 21:00 10/28/20 20:59 08/01/20 08:47 Chlorhexidine Gluconate (Marisela-Hex 2%) 1 applic DAILY@2000 TOPIC 08/08/20 20:00 11/06/20 19:59 08/11/20 19:34 Clonidine HCl (Catapres Tab) 0.1 mg Q2H PRN ORAL SBP > 170mmHg 08/04/20 09:45 11/02/20 09:44 08/07/20 23:20 Dextrose 1,000 ml @ 100 mls/hr Q10H IV 08/06/20 12:15 09/05/20 12:14 08/12/20 07:30 Dextrose (Dextrose 50%) 25 ml Q30M PRN IV Hypoglycemia 08/10/20 12:15 11/08/20 12:14 Dextrose (Dextrose 50%) 50 ml Q30M PRN IV Hypoglycemia 08/10/20 12:15 11/08/20 12:14 Diltiazem HCl (Cardizem Tab) 120 mg Q8HR GT 08/08/20 22:00 09/07/20 21:59 08/09/20 14:22 Docusate Sodium (Colace) 100 mg Q12HR GT 08/08/20 21:00 09/07/20 20:59 08/12/20 09:24 Enoxaparin Sodium (Lovenox) 30 mg DAILY SUBQ 08/02/20 10:00 10/31/20 09:59 08/12/20 09:11 Guaifenesin/ Dextromethorphan (Robitussin DM Syrup) 15 ml Q6H PRN ORAL For Cough 07/31/20 08:30 10/29/20 08:29 08/01/20 08:47 Insulin Aspart (NovoLOG) Q6HR SUBQ 08/06/20 12:00 11/04/20 11:59 08/12/20 05:53 Insulin Aspart (NovoLOG) 20 units EVERY 6 HOURS SUBQ 08/12/20 12:00 11/08/20 17:59 Insulin Detemir (Levemir) 30 units Q12HR SUBQ 08/10/20 21:00 11/04/20 20:59 08/12/20 10:01 Methylprednisolone Sodium Succinate (Solu-MEDROL) 40 mg EVERY 12 HOURS IVP 08/12/20 09:09 11/02/20 12:29 08/12/20 09:24 Norepinephrine Bitartrate 4 mg/ Sodium Chloride 250 ml @ 0 mls/hr Q24H PRN IV For hypotension 08/08/20 17:15 08/17/20 19:00 08/11/20 16:59 Pantoprazole (Protonix) 40 mg DAILY IVP 08/06/20 10:00 09/05/20 09:59 08/12/20 09:11 Polyethylene Glycol (Miralax) 17 gm BEDTIME ORAL 08/06/20 21:00 09/05/20 20:59 08/11/20 20:31 Vitamin D (Vitamin D) 5,000 unit DAILY GT 08/11/20 10:15 09/10/20 10:14 08/12/20 09:24 Laboratory Tests 08/11/20 17:11: POC Whole Blood Glucose 175H 08/11/20 20:45: POC Whole Blood Glucose [Pending] 08/12/20 06:02: White Blood Count 26.1*H, Red Blood Count 3.13L, Hemoglobin 10.2L, Hematocrit 30.8L, Mean Corpuscular Volume 98, Mean Corpuscular Hemoglobin 32.5H, Mean Corpuscular Hemoglobin Concent 33.1, Red Cell Distribution Width 12.1, Platelet Count 153, Mean Platelet Volume 8.3, Neutrophils (%) (Auto) , Lymphocytes (%) (Auto) , Monocytes (%) (Auto) , Eosinophils (%) (Auto) , Basophils (%) (Auto) , Differential Total Cells Counted 100, Neutrophils % (Manual) 90H, Lymphocytes % (Manual) 3L, Monocytes % (Manual) 7, Eosinophils % (Manual) 0, Basophils % (Manual) 0, Band Neutrophils 0, Platelet Estimate Adequate, Platelet Morphology Normal, Macrocytosis 1+, Sodium Level 136, Potassium Level 4.8, Chloride Level 100, Carbon Dioxide Level 33H, Anion Gap 3L, Blood Urea Nitrogen 83H, Creatinine 3.2H, Estimat Glomerular Filtration Rate 19.6, Glucose Level 268H, Calcium Level 7.6L, Phosphorus Level 5.3H, Magnesium Level 2.8H, Total Bilirubin 0.4, Gamma Glutamyl Transpeptidase 160H, Aspartate Amino Transf (AST/SGOT) 335H, Alanine Aminotransferase (ALT/SGPT) 81H, Alkaline Phosphatase 138H, C-Reactive Protein, Quantitative 5.1H, Pro-B-Type Natriuretic Peptide 5853H, Total Protein 5.0L, Albumin 1.7L, Globulin 3.3, Albumin/Globulin Ratio 0.5L Height (Feet): 5 Height (Inches): 5.00 Weight (Pounds): 160 General Appearance: no apparent distress, other - Unresponsive Cardiovascular: tachycardia Respiratory/Chest: decreased breath sounds Abdomen: distended Jared Everett MD Aug 12, 2020 11:27
--- NOTE | 2020-08-12 11:45 | NUR ---
NURSE NOTES: Dr Alvse at bedside assessing pt. Updated him on pt's current condition. Awaiting official EEG results. No new orders given
--- NOTE | 2020-08-12 13:00 | NUR ---
NURSE NOTES: Pt O2sat remains low, reading 70% on locator specialist. Pt is on 100% fiO2 with ventilator settings unchanged. Spoke to pt's family and updated them on pt current condition and answered their questions.
--- NOTE | 2020-08-12 13:25 | General Progress Note ---
Subjective Constitutional: Reports: weakness Allergies: Coded Allergies: No Known Allergies (Unverified , 07/29/20) All Systems: reviewed and negative except above Subjective intubated sedated in icu Objective Last 24 Hour Vital Signs Date Time Temp Pulse Resp B/P (MAP) Pulse Ox O2 Delivery O2 Flow Rate FiO2 08/12/20 13:13 73 89/48 08/12/20 13:00 96 19 89/48 (62) 70 08/12/20 13:00 89/48 08/12/20 12:00 100 08/12/20 12:00 Mechanical Ventilator 08/12/20 12:00 98.9 99 20 90/48 (62) 64 08/12/20 12:00 89/48 08/12/20 11:00 93/53 08/12/20 11:00 98 20 93/53 (66) 69 08/12/20 10:00 97 19 78/38 (51) 80 08/12/20 10:00 78/38 08/12/20 09:00 99 20 100/57 (71) 89 08/12/20 09:00 100/57 08/12/20 08:00 99.2 99 20 107/59 (75) 88 08/12/20 08:00 Mechanical Ventilator 08/12/20 08:00 100 08/12/20 08:00 109/62 08/12/20 08:00 111 08/12/20 07:00 99 20 116/66 (83) 91 08/12/20 07:00 116/60 08/12/20 06:30 94 19 129/73 (91) 92 08/12/20 06:00 08/12/20 06:00 98.7 97 19 121/69 (86) 95 08/12/20 05:54 100 135/72 08/12/20 05:30 101 22 129/69 (89) 98 08/12/20 05:00 104 22 128/70 (89) 97 08/12/20 05:00 128/70 08/12/20 04:30 101.0 107 22 126/64 (84) 96 08/12/20 04:29 101.0 08/12/20 04:00 101.4 109 22 114/62 (79) 95 08/12/20 04:00 128/70 08/12/20 04:00 100 08/12/20 04:00 109 08/12/20 04:00 Mechanical Ventilator 08/12/20 03:00 111 18 107/57 (74) 92 08/12/20 03:00 114/62 08/12/20 02:30 112 19 103/49 (67) 91 08/12/20 02:26 111 20 90 08/12/20 02:00 95/52 08/12/20 02:00 106 18 95/52 (66) 84 08/12/20 01:30 106 18 91/50 (64) 84 08/12/20 01:00 104 21 108/55 (72) 88 08/12/20 01:00 108/55 08/12/20 00:30 105 18 107/56 (73) 89 08/12/20 00:00 Mechanical Ventilator 08/12/20 00:00 115/62 08/12/20 00:00 100 08/12/20 00:00 99.9 102 20 115/62 (79) 91 08/12/20 00:00 102 08/11/20 23:30 104 19 120/62 (81) 89 08/11/20 23:04 104 16 90 08/11/20 23:00 104 19 122/68 (86) 89 08/11/20 23:00 122/68 08/11/20 22:30 101 20 125/63 (83) 90 08/11/20 22:00 100 20 133/71 (91) 92 08/11/20 22:00 133/71 08/11/20 22:00 100 125/63 08/11/20 21:30 100 20 127/67 (87) 92 08/11/20 21:00 124/63 08/11/20 21:00 99 20 124/63 (83) 93 08/11/20 20:30 100 20 145/76 (99) 94 08/11/20 20:00 100 08/11/20 20:00 134/70 08/11/20 20:00 99.0 100 20 134/70 (91) 92 08/11/20 20:00 Mechanical Ventilator 08/11/20 19:30 96 19 129/66 (87) 94 08/11/20 19:21 97 08/11/20 19:20 97 19 90 08/11/20 19:00 101 20 143/63 (89) 97 08/11/20 19:00 143/73 08/11/20 18:00 93 19 128/69 (88) 99 08/11/20 18:00 128/69 08/11/20 17:15 93 18 117/58 (77) 97 08/11/20 17:00 92 17 88/45 (59) 96 08/11/20 17:00 97/48 08/11/20 16:59 88/38 08/11/20 16:00 97 08/11/20 16:00 99.2 92 17 92/40 (57) 97 08/11/20 16:00 Mechanical Ventilator 08/11/20 16:00 100 08/11/20 15:00 96 17 109/60 (76) 97 08/11/20 14:00 93 18 112/62 (79) 97 Intake and Output 08/11/20 08/12/20 19:00 07:00 Intake Total 1760.125 ml 1766.25 ml Output Total 840 ml 610 ml Balance 920.125 ml 1156.25 ml Free Water 90 ml IV Total 1320.125 ml 1286.25 ml Tube Feeding 350 ml 420 ml Other 60 ml Output Urine Total 840 ml 610 ml # Bowel Movements 1 Laboratory Tests 08/11/20 17:11: POC Whole Blood Glucose 175H 08/11/20 20:45: POC Whole Blood Glucose [Pending] 08/12/20 06:02: White Blood Count 26.1*H, Red Blood Count 3.13L, Hemoglobin 10.2L, Hematocrit 30.8L, Mean Corpuscular Volume 98, Mean Corpuscular Hemoglobin 32.5H, Mean Corpuscular Hemoglobin Concent 33.1, Red Cell Distribution Width 12.1, Platelet Count 153, Mean Platelet Volume 8.3, Neutrophils (%) (Auto) , Lymphocytes (%) (Auto) , Monocytes (%) (Auto) , Eosinophils (%) (Auto) , Basophils (%) (Auto) , Differential Total Cells Counted 100, Neutrophils % (Manual) 90H, Lymphocytes % (Manual) 3L, Monocytes % (Manual) 7, Eosinophils % (Manual) 0, Basophils % (Manual) 0, Band Neutrophils 0, Platelet Estimate Adequate, Platelet Morphology Normal, Macrocytosis 1+, Sodium Level 136, Potassium Level 4.8, Chloride Level 100, Carbon Dioxide Level 33H, Anion Gap 3L, Blood Urea Nitrogen 83H, Creatinine 3.2H, Estimat Glomerular Filtration Rate 19.6, Glucose Level 268H, Calcium Level 7.6L, Phosphorus Level 5.3H, Magnesium Level 2.8H, Total Bilirubin 0.4, Gamma Glutamyl Transpeptidase 160H, Aspartate Amino Transf (AST/SGOT) 335H, Alanine Aminotransferase (ALT/SGPT) 81H, Alkaline Phosphatase 138H, C-Reactive Protein, Quantitative 5.1H, Pro-B-Type Natriuretic Peptide 5853H, Total Protein 5.0L, Albumin 1.7L, Globulin 3.3, Albumin/Globulin Ratio 0.5L Height (Feet): 5 Height (Inches): 5.00 Weight (Pounds): 160 General Appearance: lethargic EENT: normal ENT inspection Neck: normal alignment Cardiovascular: normal peripheral pulses, normal rate, regular rhythm Respiratory/Chest: chest wall non-tender, lungs clear, normal breath sounds Abdomen: normal bowel sounds, non tender, soft Extremities: normal inspection Edema: no edema noted Arm (L), no edema noted Arm (R), no edema noted Leg (L), no edema noted Leg (R), no edema noted Pedal (L), no edema noted Pedal (R), no e toño noted Generalized Neurologic: motor weakness Skin: normal pigmentation, warm/dry Assessment/Plan Problem List: (1) Hypoxia ICD Codes: R09.02 - Hypoxemia SNOMED: 588760655 (2) Bilateral pneumonia ICD Codes: J18.9 - Pneumonia, unspecified organism SNOMED: 225058984, 037910702 (3) Acute respiratory failure with hypoxia ICD Codes: J96.01 - Acute respiratory failure with hypoxia SNOMED: 20321780, 695985366 (4) Bradycardia ICD Codes: R00.1 - Bradycardia, unspecified SNOMED: 83535152 (5) Malnutrition ICD Codes: E46 - Unspecified protein-calorie malnutrition SNOMED: 24546826 Status: progressing, unchanged Assessment/Plan: o2 pulm tx abx pt diet cardio f/u cbc bmp am Robert Guzman DO Aug 12, 2020 13:25
--- NOTE | 2020-08-12 13:30 | NUR ---
RESPIRATORY NOTE: SIGNIFICANT DESATURATION NOTED. PT WAS SX WITH SCANT AMOUNT OF SECRETIONS OBTAINED. PT WAS REPOSITIONED AND PULSE OX PROBE WAS CHANGED WITH NO IMPROVEMENT IN SATURATION. CARLOS BERRY MADE AWARE. WILL CONTINUE TO MONITOR.
--- NOTE | 2020-08-12 14:00 | NUR ---
NURSE NOTES: O2sat currently 51%. STAT ABG to be done by RT. Levophed increased to 8mcg/min to maintain SBP >90
--- NOTE | 2020-08-12 14:14 | NUR ---
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 BUN 83, Creatinine 3.2 cxray bilateral infiltrates unchanged IS: Rocephin IV QD Cardizem GT q 8 h Lovenox SQ QD Protonix IVP QD Levophed GTT Solu Medrol IVP q 12 h ICU Status
--- NOTE | 2020-08-12 14:50 | NUR ---
RESPIRATORY NOTE: ABG WAS DRAWN. NO NEW ORDER POST ABG RESULT.
--- NOTE | 2020-08-12 15:38 | NUR ---
NURSE NOTES: Dr Antonio made aware of ABG. No ventilator setting changes ordered at this time.
--- NOTE | 2020-08-12 15:39 | NUR ---
NURSE NOTES: O2sat currently 42%
--- NOTE | 2020-08-12 16:41 | NUR ---
NURSE NOTES: Levophed running at 12mcg/min to maintain SBP >90. Pt fully cleaned and linens changed after having a large loose brown BM.
--- NOTE | 2020-08-12 17:25 | NUR ---
NURSE NOTES: BS 438. Dr Sinclair made aware.
[2020-08-12] MEDS ORDERED: Insulin Reg 100 units Premix 100 ML IV SCH (19:00)
--- NOTE | 2020-08-12 19:10 | NUR ---
NURSE HAND-OFF REPORT: Latest Vital Signs: Temperature 98.9 , Pulse 101 , B/P 117 /54 , Respiratory Rate 20 , O2 SAT 58 , Mechanical Ventilator, FiO2 100% . Vital Sign Comment: EKG Rhythm: Sinus Tachycardia Rhythm change?: N MD Notified?: MD Response: Latest Orozco Fall Score: 70 Fall Risk: High Risk Safety Measures: Call light Within Reach, Bed Alarm Zone 1, Side Rails Side Rails x2, Bed position Low and Locked. Fall Precautions: Yellow Socks Door Sign Patient Fall Education Report given to CARLOS Cowart.
--- NOTE | 2020-08-12 19:30 | NUR ---
NURSE NOTES: PATIENT OBTUNDED, ON ETT TO VENT, O2 SATURATION 58% ON VENT AC 16/TV550/FIO2 100%/PEEP8, HR 100'S/MIN ST, OGT INTACT AND PATENT, ONGOING NEPRO AT 35ML/HR, NO RESIDUE NOTED, KEPT HOB 30 DEGREES AND ASPIRATION PRECAUTION, ABDOMEN DISTENDED, NO BM STATUS, F/C INTACT AND PATENT, DARK YELLOW URINE OUTED, CHERELLE W/PIG TAIL TO RIGHT IJ AND PPL TO RIGHT [id number], INTACT AND PATENT, ONGOING IV FLUID D5%W AT 100ML/HR AND LEVOPHED 12MCG/MIN STATUS, ON P200 BED, MADE LOWER BED POSITION, ON BED ALARM AND LOCKED, WILL CONTINUE TO MONITOR.
--- NOTE | 2020-08-12 19:40 | NUR ---
NURSE NOTES: BS 443MG/DL, STARTED INSULIN DRIP 17UNITS/HR ON ALGO 3 ORDERED, GIVEN RI 10UNITS IVP PER PROTOCOLS, WILL CONTINUE TO MONITOR.
[2020-08-12] MEDS: Dyna-Hex 2% Top Sol 2oz TOPIC SCH (19:41)
[2020-08-12] MEDS: Insulin Human Regular 100units/ml 3ml IV PRN ×3 (19:41→23:38)
[2020-08-12] MEDS: Miralax 17gm pkt ORAL SCH (20:59)
[2020-08-12] MEDS: Norepinephrine Bitartrate 8 MG in Sodium Chloride 492 ML IV PRN (21:00)
[2020-08-12 21:01] LABS: CREATININE 4.1 MG/DL (0.55-1.30); POTASSIUM 5.3 MMOL/L (3.5-5.1)
--- NOTE | 2020-08-12 22:05 | NUR ---
NURSE NOTES: LE: FAMILY MEMBERS (PT'S SON, [id number]) VISITED, SEEN THE PATIENT PER HOSPITAL PROTOCOLS.
--- NOTE | 2020-08-12 22:44 | Neurology Progress Note ---
Interim History Interim History ROS Limited/Unobtainable: Yes Interim History remains too unstable to go down for CT brain desat noted low bp pending ct Objective Physical Exam Last Vital Signs Date Time Temp Pulse Resp B/P (MAP) Pulse Ox O2 Delivery O2 Flow Rate FiO2 08/12/20 22:00 140/68 08/12/20 22:00 109 08/12/20 22:00 21 71 08/12/20 20:00 Mechanical Ventilator 08/12/20 20:00 99.1 08/12/20 20:00 100 08/04/20 19:00 100.0 Laboratory Tests Test 08/12/20 06:02 08/12/20 14:50 08/12/20 20:05 White Blood Count 26.1 K/UL (4.8-10.8) *H Red Blood Count 3.13 M/UL (4.70-6.10) L Hemoglobin 10.2 G/DL (14.2-18.0) L Hematocrit 30.8 % (42.0-52.0) L Mean Corpuscular Volume 98 FL (80-99) Mean Corpuscular Hemoglobin 32.5 PG (27.0-31.0) H Mean Corpuscular Hemoglobin Concent 33.1 G/DL (32.0-36.0) Red Cell Distribution Width 12.1 % (11.6-14.8) Platelet Count 153 K/UL (150-450) Mean Platelet Volume 8.3 FL (6.5-10.1) Neutrophils (%) (Auto) % (45.0-75.0) Lymphocytes (%) (Auto) % (20.0-45.0) Monocytes (%) (Auto) % (1.0-10.0) Eosinophils (%) (Auto) % (0.0-3.0) Basophils (%) (Auto) % (0.0-2.0) Differential Total Cells Counted 100 Neutrophils % (Manual) 90 % (45-75) H Lymphocytes % (Manual) 3 % (20-45) L Monocytes % (Manual) 7 % (1-10) Eosinophils % (Manual) 0 % (0-3) Basophils % (Manual) 0 % (0-2) Band Neutrophils 0 % (0-8) Platelet Estimate Adequate Platelet Morphology Normal Macrocytosis 1+ Sodium Level 136 MMOL/L (136-145) 131 MMOL/L (136-145) L Potassium Level 4.8 MMOL/L (3.5-5.1) 5.3 MMOL/L (3.5-5.1) H Chloride Level 100 MMOL/L (98-107) 94 MMOL/L (98-107) L Carbon Dioxide Level 33 MMOL/L (21-32) H 29 MMOL/L (21-32) Anion Gap 3 mmol/L (5-15) L 8 mmol/L (5-15) Blood Urea Nitrogen 83 mg/dL (7-18) H 108 mg/dL (7-18) H Creatinine 3.2 MG/DL (0.55-1.30) H 4.1 MG/DL (0.55-1.30) H Estimat Glomerular Filtration Rate 19.6 mL/min (>60) 14.7 mL/min (>60) Glucose Level 268 MG/DL (74-106) H 460 MG/DL (74-106) #H Calcium Level 7.6 MG/DL (8.5-10.1) L 8.0 MG/DL (8.5-10.1) L Phosphorus Level 5.3 MG/DL (2.5-4.9) H Magnesium Level 2.8 MG/DL (1.8-2.4) H Total Bilirubin 0.4 MG/DL (0.2-1.0) Gamma Glutamyl Transpeptidase 160 U/L (5-85) H Aspartate Amino Transf (AST/SGOT) 335 U/L (15-37) H Alanine Aminotransferase (ALT/SGPT) 81 U/L (12-78) H Alkaline Phosphatase 138 U/L (46-116) H C-Reactive Protein, Quantitative 5.1 mg/dL (0.00-0.90) H Pro-B-Type Natriuretic Peptide 5853 pg/mL (0-125) H Total Protein 5.0 G/DL (6.4-8.2) L Albumin 1.7 G/DL (3.4-5.0) L Globulin 3.3 g/dL Albumin/Globulin Ratio 0.5 (1.0-2.7) L Arterial Blood pH 7.202 (7.350-7.450) Arterial Blood Partial Pressure CO2 78.4 mmHg (35.0-45.0) *H Arterial Blood Partial Pressure O2 27.7 mmHg (75.0-100.0) Arterial Blood HCO3 30.1 mmol/L (22.0-26.0) H Arterial Blood Oxygen Saturation 51.4 % (95-100) *L Arterial Blood Base Excess 0.3 (-2-2) Mehdi Test Positive Neurologic Exam Objective intubated, sedated per nurse earlier pupils reactive, no movement to pain Impression/Recommendations Problems: (1) Hypoxia (2) Bilateral pneumonia (3) Acute respiratory failure with hypoxia (4) Bradycardia (5) Malnutrition (6) Shock liver (7) ERIKA (acute kidney injury) (8) Diabetes mellitus out of control Status: progressing, unchanged Diagnostic Impression Prolonged admission with septic shock, resp failure, now kidney failure on HD LFTs worsening ro anoxic brain injury icu level map > 65 prognosis is poor EEG ordered CT brain if stable to go down Gabriel Villanueva MD Aug 12, 2020 22:44
[2020-08-12] MEDS: Insulin Rate Change 1 Each MISC PRN (23:38)
[2020-08-12] MEDS: Insulin Reg 100 units Premix 100 ML IV SCH (23:40)
[2020-08-13] VITALS (35 sets, daily range): BP systolic 82–167; BP diastolic 44–84
[2020-08-13] MEDS: Insulin Reg 100 units Premix 100 ML IV SCH ×3 (00:08→17:35)
--- NOTE | 2020-08-13 00:16 | NUR ---
NURSE NOTES: PATIENT NO RESPONSE, ONGOING LEVOPHED 8MCG/MIN AND INSULIN DRIP 30 UNITS/HR PER ALGO 4 PROTOCOLS, BP 155/75, HR 104/MIN ST, O2 SATURATION 84% NOTED AT THIS TIME, WILL CONTINUE TO MONITOR.
[2020-08-13] MEDS: Acetaminophen 650 MG SUPP RECTAL PRN (01:22)
[2020-08-13] MEDS: Insulin Human Regular 100units/ml 3ml IV PRN ×3 (01:38→05:32)
[2020-08-13] MEDS: Insulin Rate Change 1 Each MISC PRN ×3 (01:38→05:33)
--- NOTE | 2020-08-13 02:20 | NUR ---
NURSE NOTES: NO RESPONSE TO STIMULI, WILL CONTINUE PLAN OF CARE.
--- NOTE | 2020-08-13 04:30 | NUR ---
NURSE NOTES: MORNING CARE WAS DONE, NOTED BP 167/84 MMHG THAT MADE LEVOPHED 2MCG/MIN PER PROTOCOLS KEPT HOB 30 DEGREES, WILL CONTINUE TO MONITOR.
[2020-08-13] MEDS: dilTIAZem HCl 60mg tab GT SCH ×3 (05:39→22:00)
[2020-08-13 06:02] LABS: HEMATOCRIT 29.8 % (42.0-52.0); HEMOGLOBIN 10.2 G/DL (14.2-18.0); MEAN CORPUSCULAR VOLUME 95 FL (80-99); PLATELET COUNT 153 K/UL (150-450); RED BLOOD COUNT 3.13 M/UL (4.70-6.10); RED CELL DISTRIBUTION WIDTH 11.5 % (11.6-14.8)
[2020-08-13 06:27] LABS: ALBUMIN 2.1 G/DL (3.4-5.0); ALBUMIN/GLOBULIN RATIO 0.7 (1.0-2.7); BILIRUBIN,TOTAL 0.4 MG/DL (0.2-1.0); CALCIUM 7.9 MG/DL (8.5-10.1); PHOSPHORUS 5.9 MG/DL (2.5-4.9); POTASSIUM 4.6 MMOL/L (3.5-5.1)
--- NOTE | 2020-08-13 06:31 | NUR ---
NURSE NOTES: ONGOING INSULIN DRIP 11 UNITS/HR, LEVOPHED 2MCG/MIN AND IV FLUID D5W AT 100ML/HR STATUS, NO ACUTE DISTRESS NOTED AT THIS TIME.
--- NOTE | 2020-08-13 06:33 | General Progress Note ---
Subjective ROS Limited/Unobtainable: Yes Allergies: Coded Allergies: No Known Allergies (Unverified , 07/29/20) Subjective events note interval notes reviewed failed high dose sub Q insulin - insulin gtt started Item Value Date Time Bedside Blood Glucose 213 mg/dl H 08/13/20 0533 Bedside Blood Glucose 300 mg/dl H 08/13/20 0138 Bedside Blood Glucose 432 mg/dl H 08/12/20 2143 Bedside Blood Glucose 438 mg/dl H 08/12/20 1800 Bedside Blood Glucose 317 mg/dl H 08/12/20 1312 Bedside Blood Glucose 237 mg/dl H 08/12/20 1001 Objective Last 24 Hour Vital Signs Date Time Temp Pulse Resp B/P (MAP) Pulse Ox O2 Delivery O2 Flow Rate FiO2 08/13/20 06:00 97 16 126/65 (85) 80 08/13/20 05:39 96 125/67 08/13/20 05:30 96 17 125/67 (86) 83 08/13/20 05:00 100 17 133/65 (87) 83 08/13/20 04:37 103 18 141/68 (92) 84 08/13/20 04:30 167/84 08/13/20 04:30 108 18 167/84 (111) 83 08/13/20 04:00 Mechanical Ventilator 08/13/20 04:00 100 08/13/20 04:00 99.2 100 20 140/72 (94) 87 08/13/20 04:00 100 08/13/20 03:30 100 20 130/66 (87) 87 08/13/20 03:30 130/66 08/13/20 03:00 104 21 132/69 (90) 87 08/13/20 03:00 132/69 08/13/20 02:34 102 20 100 08/13/20 02:30 102 20 140/74 (96) 84 08/13/20 02:00 104 21 143/76 (98) 83 08/13/20 02:00 143/76 08/13/20 01:52 100.0 08/13/20 01:30 105 21 151/73 (99) 84 08/13/20 01:00 105 21 153/77 (102) 85 08/13/20 01:00 153/77 08/13/20 00:30 100.0 105 21 156/78 (104) 84 08/13/20 00:00 105 21 153/76 (101) 83 08/13/20 00:00 100 08/13/20 00:00 153/76 08/13/20 00:00 105 08/13/20 00:00 Mechanical Ventilator 08/12/20 23:45 106 21 152/73 (99) 83 08/12/20 23:30 162/81 08/12/20 23:30 107 21 162/81 (108) 82 08/12/20 23:15 109 21 151/75 (100) 80 08/12/20 23:00 107 20 148/75 (99) 78 08/12/20 23:00 148/75 08/12/20 22:59 106 20 100 08/12/20 22:45 109 21 150/82 (104) 78 08/12/20 22:30 109 20 153/73 (99) 75 08/12/20 22:15 108 21 146/71 (96) 73 08/12/20 22:00 140/68 08/12/20 22:00 109 149/68 08/12/20 22:00 108 21 140/68 (92) 71 08/12/20 21:46 114 20 147/66 (93) 69 08/12/20 21:45 115 20 153/70 (97) 69 08/12/20 21:30 99 20 65/33 (44) 73 08/12/20 21:00 119/62 08/12/20 21:00 123/60 08/12/20 21:00 104 21 123/60 (81) 72 08/12/20 20:30 104 21 130/66 (87) 71 08/12/20 20:00 Mechanical Ventilator 08/12/20 20:00 99.1 109 22 134/69 (90) 75 08/12/20 20:00 100 08/12/20 19:42 105 25 100 08/12/20 19:30 104 21 123/60 (81) 61 08/12/20 19:16 102 08/12/20 19:00 101 20 117/54 (75) 58 08/12/20 19:00 117/54 08/12/20 18:00 100 20 117/54 (75) 60 08/12/20 18:00 117/54 08/12/20 17:30 101 20 103/48 (66) 58 08/12/20 17:00 98.9 99 20 113/54 (73) 63 08/12/20 17:00 113/54 08/12/20 16:18 99 26 100 08/12/20 16:00 100 08/12/20 16:00 95 17 83/38 (53) 42 08/12/20 16:00 67/32 08/12/20 16:00 98 08/12/20 16:00 Mechanical Ventilator 08/12/20 15:00 86 16 89/41 (57) 47 08/12/20 15:00 89/41 08/12/20 14:47 83 16 100 08/12/20 14:15 81 20 103/49 (67) 51 08/12/20 14:00 97/48 08/12/20 14:00 81 20 97/48 (64) 47 08/12/20 13:45 81 20 97/43 (61) 44 08/12/20 13:30 81 15 99/48 (65) 47 08/12/20 13:30 81 16 100 08/12/20 13:24 75 17 118/56 (76) 46 08/12/20 13:15 71 16 66/35 (45) 52 08/12/20 13:13 73 89/48 08/12/20 13:00 96 19 89/48 (62) 70 08/12/20 13:00 89/48 08/12/20 12:00 99 08/12/20 12:00 100 08/12/20 12:00 Mechanical Ventilator 08/12/20 12:00 98.9 99 20 90/48 (62) 64 08/12/20 12:00 89/48 08/12/20 11:20 99 20 100 08/12/20 11:00 93/53 08/12/20 11:00 98 20 93/53 (66) 69 08/12/20 10:00 97 19 78/38 (51) 80 08/12/20 10:00 78/38 08/12/20 09:00 99 20 100/57 (71) 89 08/12/20 09:00 100/57 08/12/20 08:00 99.2 99 20 107/59 (75) 88 08/12/20 08:00 Mechanical Ventilator 08/12/20 08:00 100 08/12/20 08:00 109/62 08/12/20 08:00 111 08/12/20 07:18 99 20 100 08/12/20 07:00 99 20 116/66 (83) 91 08/12/20 07:00 116/60 Intake and Output 08/12/20 08/13/20 19:00 07:00 Intake Total 2130.0 ml 1652.75 ml Output Total 370 ml 970 ml Balance 1760.0 ml 682.75 ml IV Total 1430.0 ml 1557.75 ml Tube Feeding 420 ml 35 ml Other 280 ml 60 ml Output Urine Total 370 ml 970 ml # Bowel Movements 1 2 Laboratory Tests 08/12/20 14:50: Arterial Blood pH 7.202*L, Arterial Blood Partial Pressure CO2 78.4*H, Arterial Blood Partial Pressure O2 27.7*L, Arterial Blood HCO3 30.1H, Arterial Blood Oxygen Saturation 51.4*L, Arterial Blood Base Excess 0.3, Mehdi Test Positive 08/12/20 20:05: Sodium Level 131L, Potassium Level 5.3H, Chloride Level 94L, Carbon Dioxide Level 29, Anion Gap 8, Blood Urea Nitrogen 108H, Creatinine 4.1H, Estimat Glomerular Filtration Rate 14.7, Glucose Level 460#H, Calcium Level 8.0L 08/13/20 04:35: Sodium Level [Pending], Potassium Level [Pending], Chloride Level [Pending], Carbon Dioxide Level [Pending], Blood Urea Nitrogen [Pending], Creatinine [Pending], Estimat Glomerular Filtration Rate [Pending], Glucose Level [Pending], Calcium Level [Pending], White Blood Count 24.0*H, Red Blood Count 3.13L, Hemoglobin 10.2L, Hematocrit 29.8L, Mean Corpuscular Volume 95, Mean Corpuscular Hemoglobin 32.5H, Mean Corpuscular Hemoglobin Concent 34.1, Red Cell Distribution Width 11.5L, Platelet Count 153, Mean Platelet Volume 8.0, Neutrophils (%) (Auto) , Lymphocytes (%) (Auto) , Monocytes (%) (Auto) , Eosinophils (%) (Auto) , Basophils (%) (Auto) , Neutrophils % (Manual) [Pending], Lymphocytes % (Manual) [Pending], Platelet Estimate [Pending], Platelet Morphology [Pending], Phosphorus Level [Pending], Magnesium Level [ Pending], Total Bilirubin [Pending], Aspartate Amino Transf (AST/SGOT) [Pending], Alanine Aminotransferase (ALT/SGPT) [Pending], Alkaline Phosphatase [Pending], Total Protein [Pending], Albumin [Pending], Globulin [Pending] Height (Feet): 5 Height (Inches): 5.00 Weight (Pounds): 160 Objective Current Medications Medications (Trade) Dose Ordered Sig/Fabiano Route PRN Reason Start Time Stop Time Status Last Admin Dose Admin Acetaminophen (Tylenol) 650 mg Q4H PRN NG Temp >100.5 08/03/20 04:15 09/02/20 04:14 08/11/20 00:05 Acetaminophen (Tylenol) 650 mg Q4H PRN RECTAL Temp >100.5 08/01/20 20:30 08/31/20 20:29 08/13/20 01:22 Albuterol Sulfate (Proventil MDI) 2 puff Q4H PRN INH Shortness of Breath 07/29/20 22:45 10/27/20 22:44 Ceftriaxone Sodium 1 gm/ Sodium Chloride 55 ml @ 110 mls/hr Q24H IVPB 08/13/20 10:00 08/20/20 09:59 Cetylpyridinium Chloride (Cepacol) 1 lozg Q2H PRN [place] For Cough 07/30/20 21:00 10/28/20 20:59 08/01/20 08:47 Chlorhexidine Gluconate (Marisela-Hex 2%) 1 applic DAILY@2000 TOPIC 08/08/20 20:00 11/06/20 19:59 08/12/20 19:41 Clonidine HCl (Catapres Tab) 0.1 mg Q2H PRN ORAL SBP > 170mmHg 08/04/20 09:45 11/02/20 09:44 08/07/20 23:20 Dextrose 1,000 ml @ 100 mls/hr Q10H IV 08/06/20 12:15 09/05/20 12:14 08/13/20 03:32 Dextrose (Dextrose 50%) 25 ml Q30M PRN IV HYPOGLYCEMIA 08/12/20 19:00 11/10/20 18:59 Dextrose (Dextrose 50%) 50 ml Q30M PRN IV HYPOGLYCEMIA 08/12/20 19:00 11/10/20 18:59 Diltiazem HCl (Cardizem Tab) 120 mg Q8HR GT 08/08/20 22:00 09/07/20 21:59 08/12/20 13:13 Docusate Sodium (Colace) 100 mg Q12HR GT 08/08/20 21:00 09/07/20 20:59 08/12/20 20:59 Enoxaparin Sodium (Lovenox) 30 mg DAILY SUBQ 08/02/20 10:00 10/31/20 09:59 08/12/20 09:11 Guaifenesin/ Dextromethorphan (Robitussin DM Syrup) 15 ml Q6H PRN ORAL For Cough 07/31/20 08:30 10/29/20 08:29 08/01/20 08:47 Insulin Human (Reg)/Sodium Chloride 100 ml @ 0 mls/hr Q24H IV 08/12/20 23:45 11/10/20 23:44 08/13/20 03:33 Insulin Human Regular (NovoLIN R) 5 units PRN PRN IV BS 200-299 08/12/20 19:00 11/10/20 18:59 08/13/20 05:32 Insulin Human Regular (NovoLIN R) 10 units PRN PRN IV BS=>300 08/12/20 19:00 11/10/20 18:59 08/13/20 01:38 Methylprednisolone Sodium Succinate (Solu-MEDROL) 40 mg EVERY 12 HOURS IVP 08/12/20 09:09 11/02/20 12:29 08/12/20 20:59 Miscellaneous Medication (Insulin Rate Change) 1 ea PRN PRN MISC Per rx protocol 08/12/20 19:00 11/10/20 18:59 08/13/20 05:33 Norepinephrine Bitartrate 8 mg/ Sodium Chloride 500 ml @ 0 mls/hr Q24H PRN IV For hypotension 08/12/20 21:00 08/15/20 20:59 08/12/20 21:00 Pantoprazole (Protonix) 40 mg DAILY IVP 08/06/20 10:00 09/05/20 09:59 08/12/20 09:11 Polyethylene Glycol (Miralax) 17 gm BEDTIME ORAL 08/06/20 21:00 09/05/20 20:59 08/12/20 20:59 Vitamin D (Vitamin D) 5,000 unit DAILY GT 08/11/20 10:15 09/10/20 10:14 08/12/20 09:24 Assessment/Plan Problem List: (1) Diabetes mellitus out of control ICD Codes: E11.65 - Type 2 diabetes mellitus with hyperglycemia SNOMED: 85402062, 800121320 (2) Acute respiratory failure with hypoxia ICD Codes: J96.01 - Acute respiratory failure with hypoxia SNOMED: 84131721, 810120902 (3) Bilateral pneumonia ICD Codes: J18.9 - Pneumonia, unspecified organism SNOMED: 716001508, 033914087 Status: progressing, unchanged Assessment/Plan: continue insulin gtt glucose check every 2 hours switch back to sub Q insulin once off dextrose infusion Jeffrey Sinclair MD Aug 13, 2020 06:33
--- NOTE | 2020-08-13 07:02 | NUR ---
NURSE HAND-OFF REPORT: Latest Vital Signs: Temperature 99.2 , Pulse 97 , B/P 126 /65 , Respiratory Rate 16 , O2 SAT 80 , Mechanical Ventilator, O2 Flow Rate . Vital Sign Comment: EKG Rhythm: Sinus Rhythm Rhythm change?: N Notified?: Moi Guzman MD Response: Latest Orozco Fall Score: 70 Fall Risk: High Risk Safety Measures: Call light Within Reach, Bed Alarm Zone 1, Side Rails Side Rails x2, Bed position Low and Locked. Fall Precautions: Yellow Socks Door Sign Patient Fall Education Report given to CARLOS BERRY.
--- NOTE | 2020-08-13 07:10 | NUR ---
NURSE NOTES: Received report from CARLOS Cowart. Patient observed laying in bed, unresponsive to physical stimuli. Patient SR with HR 96. Orally intubated ETT 7.5 24cm on lip line AC 16 TV 550 Fio2 100% PEEP 8. O2 sat 85%. Patient has an OGT- Nepro currently on hold. Pt has a arteaga catheter, draining yellow urine with gravity to urometer. Pt is on a P200 mattress. Penis and scrotum noted to be swollen. Right IJ Kevin catheter with pigtail, running Levophed 2mcg/min. PIV Right Hand 20g running D5W @ 100mL/hr and Insulin drip @ 11 units/hr. Bed in lowest position, side rails upx3, call light within reach, bed alarm on , Will continue to monitor .
--- NOTE | 2020-08-13 07:42 | Hematology/Onc Progress Note ---
Assessment/Plan Assessment/Plan Assessment and Recs # Leukocytosis with Acute respiratory failure with hypoxia/covid19++ --> wbc 27-->20-->19-->23-->28-->23->26-->24 --> ABx ctx --> steriods as well --> pulm and ID # Thrombocytopenia is likely related to covid19 --> plt 83-->118-->183->111-->107-->154 --> trend as needed --> transfuse prn --> hep and hiv neg # Anemia of chronic dsease --> hgb 10-->10.2-->10 --> anemia panel has been reviewed # Respiratory Failure --> intubated 08/01/20 --> oxygenating better --> Continue PEEP 12; now decreased to 5 # AMs --> as per neuro # Hyponatremia --> per primary MD # Hyperglycemia --> BG control # Pneumonia --> abx per ID --> on dexamethasone (07/30-) --> now on remdesivir per ID (08/01-) # Covid19 with Elevated inflammatory markers; ferritin, D-Dimer --> On Lovenox # Dvt ppx lovenox sq Appreciate consultation and krysta RN Subjective Allergies: Coded Allergies: No Known Allergies (Unverified , 07/29/20) All Systems: reviewed and negative except above Subjective 08/06 remains altered, on vent, poorly responsive, as per Sophia Polanco, to inform son 08/07 labs noted, on vent, with ogt, meds reviewed, wbc elev, on steriods 08/08 remains on vent, on dex and ogt, no bleeding, on ctx 08/10 is on vent, ogt, no bleeding, meds noted, no night sweats, krysta rn 08/11 on vent, gt, no bleeding, vital studies neg, krysta rn, picc noted 08/12 on vent, with ogt, labs reviewed, plts improved 08/13 on vent, intubated, with ogt, on fluids as well Objective Objective Current Medications Medications (Trade) Dose Ordered Sig/Fabiano Route PRN Reason Start Time Stop Time Status Last Admin Dose Admin Acetaminophen (Tylenol) 650 mg Q4H PRN NG Temp >100.5 08/03/20 04:15 09/02/20 04:14 08/11/20 00:05 Acetaminophen (Tylenol) 650 mg Q4H PRN RECTAL Temp >100.5 08/01/20 20:30 08/31/20 20:29 08/13/20 01:22 Albuterol Sulfate (Proventil MDI) 2 puff Q4H PRN INH Shortness of Breath 07/29/20 22:45 10/27/20 22:44 Ceftriaxone Sodium 1 gm/ Sodium Chloride 55 ml @ 110 mls/hr Q24H IVPB 08/13/20 10:00 08/20/20 09:59 Cetylpyridinium Chloride (Cepacol) 1 lozg Q2H PRN [place] For Cough 07/30/20 21:00 10/28/20 20:59 08/01/20 08:47 Chlorhexidine Gluconate (Marisela-Hex 2%) 1 applic DAILY@2000 TOPIC 08/08/20 20:00 11/06/20 19:59 08/12/20 19:41 Clonidine HCl (Catapres Tab) 0.1 mg Q2H PRN ORAL SBP > 170mmHg 08/04/20 09:45 11/02/20 09:44 08/07/20 23:20 Dextrose 1,000 ml @ 100 mls/hr Q10H IV 08/06/20 12:15 09/05/20 12:14 08/13/20 03:32 Dextrose (Dextrose 50%) 25 ml Q30M PRN IV HYPOGLYCEMIA 08/12/20 19:00 11/10/20 18:59 Dextrose (Dextrose 50%) 50 ml Q30M PRN IV HYPOGLYCEMIA 08/12/20 19:00 11/10/20 18:59 Diltiazem HCl (Cardizem Tab) 120 mg Q8HR GT 08/08/20 22:00 09/07/20 21:59 08/12/20 13:13 Docusate Sodium (Colace) 100 mg Q12HR GT 08/08/20 21:00 09/07/20 20:59 08/12/20 20:59 Enoxaparin Sodium (Lovenox) 30 mg DAILY SUBQ 08/02/20 10:00 10/31/20 09:59 08/12/20 09:11 Guaifenesin/ Dextromethorphan (Robitussin DM Syrup) 15 ml Q6H PRN ORAL For Cough 07/31/20 08:30 10/29/20 08:29 08/01/20 08:47 Insulin Human (Reg)/Sodium Chloride 100 ml @ 0 mls/hr Q24H IV 08/12/20 23:45 11/10/20 23:44 08/13/20 03:33 Insulin Human Regular (NovoLIN R) 5 units PRN PRN IV BS 200-299 08/12/20 19:00 11/10/20 18:59 08/13/20 05:32 Insulin Human Regular (NovoLIN R) 10 units PRN PRN IV BS=>300 08/12/20 19:00 11/10/20 18:59 08/13/20 01:38 Methylprednisolone Sodium Succinate (Solu-MEDROL) 40 mg EVERY 12 HOURS IVP 08/12/20 09:09 11/02/20 12:29 08/12/20 20:59 Miscellaneous Medication (Insulin Rate Change) 1 ea PRN PRN MISC Per rx protocol 08/12/20 19:00 11/10/20 18:59 08/13/20 05:33 Norepinephrine Bitartrate 8 mg/ Sodium Chloride 500 ml @ 0 mls/hr Q24H PRN IV For hypotension 08/12/20 21:00 08/15/20 20:59 08/12/20 21:00 Pantoprazole (Protonix) 40 mg DAILY IVP 08/06/20 10:00 09/05/20 09:59 08/12/20 09:11 Polyethylene Glycol (Miralax) 17 gm BEDTIME ORAL 08/06/20 21:00 09/05/20 20:59 08/12/20 20:59 Vitamin D (Vitamin D) 5,000 unit DAILY GT 08/11/20 10:15 09/10/20 10:14 08/12/20 09:24 Last 24 Hour Vital Signs Date Time Temp Pulse Resp B/P (MAP) Pulse Ox O2 Delivery O2 Flow Rate FiO2 08/13/20 07:00 124/64 08/13/20 07:00 94 16 124/64 (84) 84 08/13/20 06:30 94 19 122/64 (83) 84 08/13/20 06:00 97 16 126/65 (85) 80 08/13/20 06:00 126/65 08/13/20 05:39 96 125/67 08/13/20 05:30 96 17 125/67 (86) 83 08/13/20 05:00 133/65 08/13/20 05:00 100 17 133/65 (87) 83 08/13/20 04:37 103 18 141/68 (92) 84 08/13/20 04:30 167/84 08/13/20 04:30 108 18 167/84 (111) 83 08/13/20 04:00 Mechanical Ventilator 08/13/20 04:00 100 08/13/20 04:00 99.2 100 20 140/72 (94) 87 08/13/20 04:00 100 08/13/20 03:30 100 20 130/66 (87) 87 08/13/20 03:30 130/66 08/13/20 03:00 104 21 132/69 (90) 87 08/13/20 03:00 132/69 08/13/20 02:34 102 20 100 08/13/20 02:30 102 20 140/74 (96) 84 08/13/20 02:00 104 21 143/76 (98) 83 08/13/20 02:00 143/76 08/13/20 01:52 100.0 08/13/20 01:30 105 21 151/73 (99) 84 08/13/20 01:00 105 21 153/77 (102) 85 08/13/20 01:00 153/77 08/13/20 00:30 100.0 105 21 156/78 (104) 84 08/13/20 00:00 105 21 153/76 (101) 83 08/13/20 00:00 100 08/13/20 00:00 153/76 08/13/20 00:00 105 08/13/20 00:00 Mechanical Ventilator 08/12/20 23:45 106 21 152/73 (99) 83 08/12/20 23:30 162/81 08/12/20 23:30 107 21 162/81 (108) 82 08/12/20 23:15 109 21 151/75 (100) 80 08/12/20 23:00 107 20 148/75 (99) 78 08/12/20 23:00 148/75 08/12/20 22:59 106 20 100 08/12/20 22:45 109 21 150/82 (104) 78 08/12/20 22:30 109 20 153/73 (99) 75 08/12/20 22:15 108 21 146/71 (96) 73 08/12/20 22:00 140/68 08/12/20 22:00 109 149/68 08/12/20 22:00 108 21 140/68 (92) 71 08/12/20 21:46 114 20 147/66 (93) 69 08/12/20 21:45 115 20 153/70 (97) 69 08/12/20 21:30 99 20 65/33 (44) 73 08/12/20 21:00 119/62 08/12/20 21:00 123/60 08/12/20 21:00 104 21 123/60 (81) 72 08/12/20 20:30 104 21 130/66 (87) 71 08/12/20 20:00 Mechanical Ventilator 08/12/20 20:00 99.1 109 22 134/69 (90) 75 08/12/20 20:00 100 08/12/20 19:42 105 25 100 08/12/20 19:30 104 21 123/60 (81) 61 08/12/20 19:16 102 08/12/20 19:00 101 20 117/54 (75) 58 08/12/20 19:00 117/54 08/12/20 18:00 100 20 117/54 (75) 60 08/12/20 18:00 117/54 08/12/20 17:30 101 20 103/48 (66) 58 08/12/20 17:00 98.9 99 20 113/54 (73) 63 08/12/20 17:00 113/54 08/12/20 16:18 99 26 100 08/12/20 16:00 100 08/12/20 16:00 95 17 83/38 (53) 42 08/12/20 16:00 67/32 08/12/20 16:00 98 08/12/20 16:00 Mechanical Ventilator 08/12/20 15:00 86 16 89/41 (57) 47 08/12/20 15:00 89/41 08/12/20 14:47 83 16 100 08/12/20 14:15 81 20 103/49 (67) 51 08/12/20 14:00 97/48 08/12/20 14:00 81 20 97/48 (64) 47 08/12/20 13:45 81 20 97/43 (61) 44 08/12/20 13:30 81 15 99/48 (65) 47 08/12/20 13:30 81 16 100 08/12/20 13:24 75 17 118/56 (76) 46 08/12/20 13:15 71 16 66/35 (45) 52 08/12/20 13:13 73 89/48 08/12/20 13:00 96 19 89/48 (62) 70 08/12/20 13:00 89/48 08/12/20 12:00 99 08/12/20 12:00 100 08/12/20 12:00 Mechanical Ventilator 08/12/20 12:00 98.9 99 20 90/48 (62) 64 08/12/20 12:00 89/48 08/12/20 11:20 99 20 100 08/12/20 11:00 93/53 08/12/20 11:00 98 20 93/53 (66) 69 08/12/20 10:00 97 19 78/38 (51) 80 08/12/20 10:00 78/38 08/12/20 09:00 99 20 100/57 (71) 89 08/12/20 09:00 100/57 08/12/20 08:00 99.2 99 20 107/59 (75) 88 08/12/20 08:00 Mechanical Ventilator 08/12/20 08:00 100 08/12/20 08:00 109/62 08/12/20 08:00 111 08/12/20 07:18 99 20 100 08/12/20 07:00 99 20 116/66 (83) 91 08/12/20 07:00 116/60 08/12/20 06:30 94 19 129/73 (91) 92 08/12/20 06:00 2108/12/20 06:00 98.7 97 19 121/69 (86) 95 08/12/20 05:54 100 135/72 08/12/20 05:30 101 22 129/69 (89) 98 08/12/20 05:00 104 22 128/70 (89) 97 08/12/20 05:00 128/70 08/12/20 04:30 101.0 107 22 126/64 (84) 96 08/12/20 04:29 101.0 08/12/20 04:00 101.4 109 22 114/62 (79) 95 08/12/20 04:00 128/70 08/12/20 04:00 100 08/12/20 04:00 109 08/12/20 04:00 Mechanical Ventilator 08/12/20 03:00 111 18 107/57 (74) 92 08/12/20 03:00 114/62 08/12/20 02:30 112 19 103/49 (67) 91 08/12/20 02:26 111 20 90 08/12/20 02:00 95/52 08/12/20 02:00 106 18 95/52 (66) 84 08/12/20 01:30 106 18 91/50 (64) 84 08/12/20 01:00 104 21 108/55 (72) 88 08/12/20 01:00 108/55 08/12/20 00:30 105 18 107/56 (73) 89 08/12/20 00:00 Mechanical Ventilator 08/12/20 00:00 115/62 08/12/20 00:00 100 08/12/20 00:00 99.9 102 20 115/62 (79) 91 08/12/20 00:00 102 08/11/20 23:30 104 19 120/62 (81) 89 08/11/20 23:04 104 16 90 08/11/20 23:00 104 19 122/68 (86) 89 08/11/20 23:00 122/68 08/11/20 22:30 101 20 125/63 (83) 90 08/11/20 22:00 100 20 133/71 (91) 92 08/11/20 22:00 133/71 08/11/20 22:00 100 125/63 08/11/20 21:30 100 20 127/67 (87) 92 08/11/20 21:00 124/63 08/11/20 21:00 99 20 124/63 (83) 93 08/11/20 20:30 100 20 145/76 (99) 94 08/11/20 20:00 100 08/11/20 20:00 134/70 08/11/20 20:00 99.0 100 20 134/70 (91) 92 08/11/20 20:00 Mechanical Ventilator 08/11/20 19:30 96 19 129/66 (87) 94 08/11/20 19:21 97 08/11/20 19:20 97 19 90 08/11/20 19:00 101 20 143/63 (89) 97 08/11/20 19:00 143/73 08/11/20 18:00 93 19 128/69 (88) 99 08/11/20 18:00 128/69 08/11/20 17:15 93 18 117/58 (77) 97 08/11/20 17:00 92 17 88/45 (59) 96 08/11/20 17:00 97/48 08/11/20 16:59 88/38 08/11/20 16:00 97 08/11/20 16:00 99.2 92 17 92/40 (57) 97 08/11/20 16:00 Mechanical Ventilator 08/11/20 16:00 100 08/11/20 15:00 96 17 109/60 (76) 97 08/11/20 14:00 93 18 112/62 (79) 97 08/11/20 13:20 92 17 100 08/11/20 13:00 101 17 118/67 (84) 98 08/11/20 12:00 99 08/11/20 12:00 100 08/11/20 12:00 Mechanical Ventilator 08/11/20 12:00 97.8 95 19 120/64 (82) 98 08/11/20 11:40 104 16 100 08/11/20 11:00 94 18 102/53 (69) 98 08/11/20 10:00 99 16 92/43 (59) 96 08/11/20 09:00 98 16 109/56 (73) 98 08/11/20 08:00 100 08/11/20 08:00 Mechanical Ventilator 08/11/20 08:00 96 08/11/20 08:00 99.8 97 16 110/55 (73) 98 Intake and Output 08/12/20 08/13/20 19:00 07:00 Intake Total 2130.0 ml 1771.25 ml Output Total 370 ml 1000 ml Balance 1760.0 ml 771.25 ml IV Total 1430.0 ml 1676.25 ml Tube Feeding 420 ml 35 ml Other 280 ml 60 ml Output Urine Total 370 ml 1000 ml # Bowel Movements 1 2 Labs Test 08/10/20 08:47 08/10/20 09:02 08/10/20 18:37 08/11/20 04:38 Arterial Blood pH 7.263 (7.350-7.450) Arterial Blood Partial Pressure CO2 73.5 mmHg (35.0-45.0) Arterial Blood Partial Pressure O2 83.3 mmHg (75.0-100.0) Arterial Blood HCO3 32.5 mmol/L (22.0-26.0) Arterial Blood Oxygen Saturation 95.9 % (95-100) Arterial Blood Base Excess 3.8 (-2-2) Mehdi Test Positive White Blood Count 22.5 K/UL (4.8-10.8) Red Blood Count 2.96 M/UL (4.70-6.10) Hemoglobin 9.5 G/DL (14.2-18.0) Hematocrit 29.8 % (42.0-52.0) Mean Corpuscular Volume 101 FL (80-99) Mean Corpuscular Hemoglobin 32.2 PG (27.0-31.0) Mean Corpuscular Hemoglobin Concent 32.0 G/DL (32.0-36.0) Red Cell Distribution Width 12.1 % (11.6-14.8) Platelet Count 124 K/UL (150-450) Mean Platelet Volume 7.6 FL (6.5-10.1) Neutrophils (%) (Auto) % (45.0-75.0) Lymphocytes (%) (Auto) % (20.0-45.0) Monocytes (%) (Auto) % (1.0-10.0) Eosinophils (%) (Auto) % (0.0-3.0) Basophils (%) (Auto) % (0.0-2.0) Differential Total Cells Counted 100 Neutrophils % (Manual) 94 % (45-75) Lymphocytes % (Manual) 2 % (20-45) Monocytes % (Manual) 4 % (1-10) Eosinophils % (Manual) 0 % (0-3) Basophils % (Manual) 0 % (0-2) Band Neutrophils 0 % (0-8) Platelet Estimate Decreased Platelet Morphology Normal Hypochromasia 1+ Macrocytosis 1+ Prothrombin Time 10.5 SEC (9.30-11.50) Prothromb Time International Ratio 0.9 (0.9-1.1) Activated Partial Thromboplast Time 26 SEC (23-33) Sodium Level 140 MMOL/L (136-145) Potassium Level 5.0 MMOL/L (3.5-5.1) Chloride Level 105 MMOL/L (98-107) Carbon Dioxide Level 33 MMOL/L (21-32) Anion Gap 3 mmol/L (5-15) Blood Urea Nitrogen 129 mg/dL (7-18) Creatinine 4.2 MG/DL (0.55-1.30) Estimat Glomerular Filtration Rate 14.3 mL/min (>60) Glucose Level 349 MG/DL (74-106) Calcium Level 7.6 MG/DL (8.5-10.1) Phosphorus Level 5.1 MG/DL (2.5-4.9) Magnesium Level 3.4 MG/DL (1.8-2.4) Total Bilirubin 0.1 MG/DL (0.2-1.0) Gamma Glutamyl Transpeptidase 175 U/L (5-85) Aspartate Amino Transf (AST/SGOT) 249 U/L (15-37) Alanine Aminotransferase (ALT/SGPT) 96 U/L (12-78) Alkaline Phosphatase 121 U/L (46-116) C-Reactive Protein, Quantitative 4.0 mg/dL (0.00-0.90) Total Protein 4.5 G/DL (6.4-8.2) Albumin 1.5 G/DL (3.4-5.0) Globulin 3.0 g/dL Albumin/Globulin Ratio 0.5 (1.0-2.7) Test 08/11/20 09:51 08/11/20 17:11 08/11/20 20:45 08/12/20 06:02 Arterial Blood pH 7.256 (7.350-7.450) Arterial Blood Partial Pressure CO2 74.0 mmHg (35.0-45.0) Arterial Blood Partial Pressure O2 73.0 mmHg (75.0-100.0) Arterial Blood HCO3 32.2 mmol/L (22.0-26.0) Arterial Blood Oxygen Saturation 93.9 % (95-100) Arterial Blood Base Excess 3.5 (-2-2) Mehdi Test Positive POC Whole Blood Glucose 175 MG/DL (74-106) White Blood Count 26.1 K/UL (4.8-10.8) Red Blood Count 3.13 M/UL (4.70-6.10) Hemoglobin 10.2 G/DL (14.2-18.0) Hematocrit 30.8 % (42.0-52.0) Mean Corpuscular Volume 98 FL (80-99) Mean Corpuscular Hemoglobin 32.5 PG (27.0-31.0) Mean Corpuscular Hemoglobin Concent 33.1 G/DL (32.0-36.0) Red Cell Distribution Width 12.1 % (11.6-14.8) Platelet Count 153 K/UL (150-450) Mean Platelet Volume 8.3 FL (6.5-10.1) Neutrophils (%) (Auto) % (45.0-75.0) Lymphocytes (%) (Auto) % (20.0-45.0) Monocytes (%) (Auto) % (1.0-10.0) Eosinophils (%) (Auto) % (0.0-3.0) Basophils (%) (Auto) % (0.0-2.0) Differential Total Cells Counted 100 Neutrophils % (Manual) 90 % (45-75) Lymphocytes % (Manual) 3 % (20-45) Monocytes % (Manual) 7 % (1-10) Eosinophils % (Manual) 0 % (0-3) Basophils % (Manual) 0 % (0-2) Band Neutrophils 0 % (0-8) Platelet Estimate Adequate Platelet Morphology Normal Macrocytosis 1+ Sodium Level 136 MMOL/L (136-145) Potassium Level 4.8 MMOL/L (3.5-5.1) Chloride Level 100 MMOL/L (98-107) Carbon Dioxide Level 33 MMOL/L (21-32) Anion Gap 3 mmol/L (5-15) Blood Urea Nitrogen 83 mg/dL (7-18) Creatinine 3.2 MG/DL (0.55-1.30) Estimat Glomerular Filtration Rate 19.6 mL/min (>60) Glucose Level 268 MG/DL (74-106) Calcium Level 7.6 MG/DL (8.5-10.1) Phosphorus Level 5.3 MG/DL (2.5-4.9) Magnesium Level 2.8 MG/DL (1.8-2.4) Total Bilirubin 0.4 MG/DL (0.2-1.0) Gamma Glutamyl Transpeptidase 160 U/L (5-85) Aspartate Amino Transf (AST/SGOT) 335 U/L (15-37) Alanine Aminotransferase (ALT/SGPT) 81 U/L (12-78) Alkaline Phosphatase 138 U/L (46-116) C-Reactive Protein, Quantitative 5.1 mg/dL (0.00-0.90) Pro-B-Type Natriuretic Peptide 5853 pg/mL (0-125) Total Protein 5.0 G/DL (6.4-8.2) Albumin 1.7 G/DL (3.4-5.0) Globulin 3.3 g/dL Albumin/Globulin Ratio 0.5 (1.0-2.7) Test 08/12/20 14:50 08/12/20 20:05 08/13/20 04:35 Arterial Blood pH 7.202 (7.350-7.450) Arterial Blood Partial Pressure CO2 78.4 mmHg (35.0-45.0) Arterial Blood Partial Pressure O2 27.7 mmHg (75.0-100.0) Arterial Blood HCO3 30.1 mmol/L (22.0-26.0) Arterial Blood Oxygen Saturation 51.4 % (95-100) Arterial Blood Base Excess 0.3 (-2-2) Mehdi Test Positive Sodium Level 131 MMOL/L (136-145) 133 MMOL/L (136-145) Potassium Level 5.3 MMOL/L (3.5-5.1) 4.6 MMOL/L (3.5-5.1) Chloride Level 94 MMOL/L (98-107) 97 MMOL/L (98-107) Carbon Dioxide Level 29 MMOL/L (21-32) 31 MMOL/L (21-32) Anion Gap 8 mmol/L (5-15) 5 mmol/L (5-15) Blood Urea Nitrogen 108 mg/dL (7-18) 104 mg/dL (7-18) Creatinine 4.1 MG/DL (0.55-1.30) 4.0 MG/DL (0.55-1.30) Estimat Glomerular Filtration Rate 14.7 mL/min (>60) 15.1 mL/min (>60) Glucose Level 460 MG/DL (74-106) 213 MG/DL (74-106) Calcium Level 8.0 MG/DL (8.5-10.1) 7.9 MG/DL (8.5-10.1) White Blood Count 24.0 K/UL (4.8-10.8) Red Blood Count 3.13 M/UL (4.70-6.10) Hemoglobin 10.2 G/DL (14.2-18.0) Hematocrit 29.8 % (42.0-52.0) Mean Corpuscular Volume 95 FL (80-99) Mean Corpuscular Hemoglobin 32.5 PG (27.0-31.0) Mean Corpuscular Hemoglobin Concent 34.1 G/DL (32.0-36.0) Red Cell Distribution Width 11.5 % (11.6-14.8) Platelet Count 153 K/UL (150-450) Mean Platelet Volume 8.0 FL (6.5-10.1) Neutrophils (%) (Auto) % (45.0-75.0) Lymphocytes (%) (Auto) % (20.0-45.0) Monocytes (%) (Auto) % (1.0-10.0) Eosinophils (%) (Auto) % (0.0-3.0) Basophils (%) (Auto) % (0.0-2.0) Phosphorus Level 5.9 MG/DL (2.5-4.9) Magnesium Level 2.8 MG/DL (1.8-2.4) Total Bilirubin 0.4 MG/DL (0.2-1.0) Aspartate Amino Transf (AST/SGOT) 370 U/L (15-37) Alanine Aminotransferase (ALT/SGPT) 62 U/L (12-78) Alkaline Phosphatase 145 U/L (46-116) Total Protein 5.2 G/DL (6.4-8.2) Albumin 2.1 G/DL (3.4-5.0) Globulin 3.1 g/dL Albumin/Globulin Ratio 0.7 (1.0-2.7) Height (Feet): 5 Height (Inches): 5.00 Weight (Pounds): 160 Objective Vital Signs Vitals: reviewed, abnormal General Appearance: well appearing, mild distress HEENT: hearing grossly normal, moist mucus membranes Neck: full range of motion, supple Respiratory: ++vent Cardiovascular: normal peripheral pulses, regular rate, rhythm, no murmur Gastrointestinal: non tender, soft, non-distended, no guarding Neurologic: alert, oriented x3, no focal defects Skin: normal color, warm/dry Robin Ornelas MD Aug 13, 2020 07:42
--- NOTE | 2020-08-13 09:09 | NUR ---
NURSE NOTES: Pt remains hemodynamically unstable. Unable to take pt off of the unit to have a CT of the head.
[2020-08-13] MEDS: Vitamin D 1000 units Tab GT SCH (09:11)
[2020-08-13] MEDS: Solu-MEDROL 125mg Inj IVP SCH ×2 (09:11→20:32)
[2020-08-13] MEDS: Pantoprazole Inj IVP SCH (09:11)
[2020-08-13] MEDS: Docusate 100mg/10ml Liq GT SCH ×2 (09:11→20:32)
[2020-08-13] MEDS: Enoxaparin 30mg Inj SUBQ SCH (09:12)
[2020-08-13] MEDS: cefTRIAXone 1 GM in NS 55 ML IVPB SCH (09:13)
--- NOTE | 2020-08-13 09:13 | General Progress Note ---
Subjective Constitutional: Reports: weakness Allergies: Coded Allergies: No Known Allergies (Unverified , 07/29/20) All Systems: reviewed and negative except above Subjective intubated sedated in icu Objective Last 24 Hour Vital Signs Date Time Temp Pulse Resp B/P (MAP) Pulse Ox O2 Delivery O2 Flow Rate FiO2 08/13/20 08:00 Mechanical Ventilator 08/13/20 08:00 100 08/13/20 08:00 129/67 08/13/20 08:00 98.6 91 18 123/67 (85) 88 08/13/20 07:30 93 17 121/63 (82) 85 08/13/20 07:00 124/64 08/13/20 07:00 94 16 124/64 (84) 84 08/13/20 06:30 94 19 122/64 (83) 84 08/13/20 06:00 97 16 126/65 (85) 80 08/13/20 06:00 126/65 08/13/20 05:39 96 125/67 08/13/20 05:30 96 17 125/67 (86) 83 08/13/20 05:00 133/65 08/13/20 05:00 100 17 133/65 (87) 83 08/13/20 04:37 103 18 141/68 (92) 84 08/13/20 04:30 167/84 08/13/20 04:30 108 18 167/84 (111) 83 08/13/20 04:00 Mechanical Ventilator 08/13/20 04:00 100 08/13/20 04:00 99.2 100 20 140/72 (94) 87 08/13/20 04:00 100 08/13/20 03:30 100 20 130/66 (87) 87 08/13/20 03:30 130/66 08/13/20 03:00 104 21 132/69 (90) 87 08/13/20 03:00 132/69 08/13/20 02:34 102 20 100 08/13/20 02:30 102 20 140/74 (96) 84 08/13/20 02:00 104 21 143/76 (98) 83 08/13/20 02:00 143/76 08/13/20 01:52 100.0 08/13/20 01:30 105 21 151/73 (99) 84 08/13/20 01:00 105 21 153/77 (102) 85 08/13/20 01:00 153/77 08/13/20 00:30 100.0 105 21 156/78 (104) 84 08/13/20 00:00 105 21 153/76 (101) 83 08/13/20 00:00 100 08/13/20 00:00 153/76 08/13/20 00:00 105 08/13/20 00:00 Mechanical Ventilator 08/12/20 23:45 106 21 152/73 (99) 83 08/12/20 23:30 162/81 08/12/20 23:30 107 21 162/81 (108) 82 08/12/20 23:15 109 21 151/75 (100) 80 08/12/20 23:00 107 20 148/75 (99) 78 08/12/20 23:00 148/75 08/12/20 22:59 106 20 100 08/12/20 22:45 109 21 150/82 (104) 78 08/12/20 22:30 109 20 153/73 (99) 75 08/12/20 22:15 108 21 146/71 (96) 73 08/12/20 22:00 140/68 08/12/20 22:00 109 149/68 08/12/20 22:00 108 21 140/68 (92) 71 08/12/20 21:46 114 20 147/66 (93) 69 08/12/20 21:45 115 20 153/70 (97) 69 08/12/20 21:30 99 20 65/33 (44) 73 08/12/20 21:00 119/62 08/12/20 21:00 123/60 08/12/20 21:00 104 21 123/60 (81) 72 08/12/20 20:30 104 21 130/66 (87) 71 08/12/20 20:00 Mechanical Ventilator 08/12/20 20:00 99.1 109 22 134/69 (90) 75 08/12/20 20:00 100 08/12/20 19:42 105 25 100 08/12/20 19:30 104 21 123/60 (81) 61 08/12/20 19:16 102 08/12/20 19:00 101 20 117/54 (75) 58 08/12/20 19:00 117/54 08/12/20 18:00 100 20 117/54 (75) 60 08/12/20 18:00 117/54 08/12/20 17:30 101 20 103/48 (66) 58 08/12/20 17:00 98.9 99 20 113/54 (73) 63 08/12/20 17:00 113/54 08/12/20 16:18 99 26 100 08/12/20 16:00 100 08/12/20 16:00 95 17 83/38 (53) 42 08/12/20 16:00 67/32 08/12/20 16:00 98 08/12/20 16:00 Mechanical Ventilator 08/12/20 15:00 86 16 89/41 (57) 47 08/12/20 15:00 89/41 08/12/20 14:47 83 16 100 08/12/20 14:15 81 20 103/49 (67) 51 08/12/20 14:00 97/48 08/12/20 14:00 81 20 97/48 (64) 47 08/12/20 13:45 81 20 97/43 (61) 44 08/12/20 13:30 81 15 99/48 (65) 47 08/12/20 13:30 81 16 100 08/12/20 13:24 75 17 118/56 (76) 46 08/12/20 13:15 71 16 66/35 (45) 52 08/12/20 13:13 73 89/48 08/12/20 13:00 96 19 89/48 (62) 70 08/12/20 13:00 89/48 08/12/20 12:00 99 08/12/20 12:00 100 08/12/20 12:00 Mechanical Ventilator 08/12/20 12:00 98.9 99 20 90/48 (62) 64 08/12/20 12:00 89/48 08/12/20 11:20 99 20 100 08/12/20 11:00 93/53 08/12/20 11:00 98 20 93/53 (66) 69 08/12/20 10:00 97 19 78/38 (51) 80 08/12/20 10:00 78/38 Intake and Output 08/12/20 08/13/20 19:00 07:00 Intake Total 2130.0 ml 1771.25 ml Output Total 370 ml 1000 ml Balance 1760.0 ml 771.25 ml IV Total 1430.0 ml 1676.25 ml Tube Feeding 420 ml 35 ml Other 280 ml 60 ml Output Urine Total 370 ml 1000 ml # Bowel Movements 1 2 Laboratory Tests 08/12/20 14:50: Arterial Blood pH 7.202*L, Arterial Blood Partial Pressure CO2 78.4*H, Arterial Blood Partial Pressure O2 27.7*L, Arterial Blood HCO3 30.1H, Arterial Blood Oxygen Saturation 51.4*L, Arterial Blood Base Excess 0.3, Mehdi Test Positive 08/12/20 20:05: Sodium Level 131L, Potassium Level 5.3H, Chloride Level 94L, Carbon Dioxide Level 29, Anion Gap 8, Blood Urea Nitrogen 108H, Creatinine 4.1H, Estimat Glomerular Filtration Rate 14.7, Glucose Level 460#H, Calcium Level 8.0L 08/13/20 04:35: Sodium Level 133L, Potassium Level 4.6, Chloride Level 97L, Carbon Dioxide Level 31, Anion Gap 5, Blood Urea Nitrogen 104H, Creatinine 4.0H, Estimat Glomerular F iltration Rate 15.1, Glucose Level 213#H, Calcium Level 7.9L, White Blood Count 24.0*H, Red Blood Count 3.13L, Hemoglobin 10.2L, Hematocrit 29.8L, Mean Corpuscular Volume 95, Mean Corpuscular Hemoglobin 32.5H, Mean Corpuscular Hemoglobin Concent 34.1, Red Cell Distribution Width 11.5L, Platelet Count 153, Mean Platelet Volume 8.0, Neutrophils (%) (Auto) , Lymphocytes (%) (Auto) , Monocytes (%) (Auto) , Eosinophils (%) (Auto) , Basophils (%) (Auto) , Neutrophils % (Manual) [Pending], Lymphocytes % (Manual) [Pending], Platelet Estimate [Pending], Platelet Morphology [Pending], Phosphorus Level 5.9H, Magnesium Level 2.8H, Total Bilirubin 0.4, Aspartate Amino Transf (AST/SGOT) 370H, Alanine Aminotransferase (ALT/SGPT) 62, Alkaline Phosphatase 145H, Total Protein 5.2L, Albumin 2.1L, Globulin 3.1, Albumin/Globulin Ratio 0.7L Height (Feet): 5 Height (Inches): 5.00 Weight (Pounds): 160 General Appearance: lethargic EENT: normal ENT inspection Neck: normal alignment Cardiovascular: normal peripheral pulses, normal rate, regular rhythm Respiratory/Chest: chest wall non-tender, lungs clear, normal breath sounds Abdomen: normal bowel sounds, non tender, soft Extremities: normal inspection Edema: no edema noted Arm (L), no edema noted Arm (R), no edema noted Leg (L), no edema noted Leg (R), no edema noted Pedal (L), no edema noted Pedal (R), no edema noted Generalized Neurologic: motor weakness Skin: normal pigmentation, warm/dry Assessment/Plan Problem List: (1) Hypoxia ICD Codes: R09.02 - Hypoxemia SNOMED: 215414000 (2) Bilateral pneumonia ICD Codes: J18.9 - Pneumonia, unspecified organism SNOMED: 544509842, 970075020 (3) Acute respiratory failure with hypoxia ICD Codes: J96.01 - Acute respiratory failure with hypoxia SNOMED: 66356195, 258240848 (4) Bradycardia ICD Codes: R00.1 - Bradycardia, unspecified SNOMED: 02381078 (5) Malnutrition ICD Codes: E46 - Unspecified protein-calorie malnutrition SNOMED: 77439400 Status: unchanged Assessment/Plan: o2 pulm tx abx pt diet cardio f/u cbc bmp am Robert Guzman DO Aug 13, 2020 09:13
--- NOTE | 2020-08-13 09:29 | General Progress Note ---
Subjective ROS Limited/Unobtainable: No Allergies: Coded Allergies: No Known Allergies (Unverified , 07/29/20) Objective Last 24 Hour Vital Signs Date Time Temp Pulse Resp B/P (MAP) Pulse Ox O2 Delivery O2 Flow Rate FiO2 08/13/20 09:00 89 18 127/69 (88) 88 08/13/20 08:30 90 17 121/71 (88) 87 08/13/20 08:00 Mechanical Ventilator 08/13/20 08:00 100 08/13/20 08:00 129/67 08/13/20 08:00 98.6 91 18 123/67 (85) 88 08/13/20 07:30 93 17 121/63 (82) 85 08/13/20 07:00 124/64 08/13/20 07:00 94 16 124/64 (84) 84 08/13/20 06:30 94 19 122/64 (83) 84 08/13/20 06:00 97 16 126/65 (85) 80 08/13/20 06:00 126/65 08/13/20 05:39 96 125/67 08/13/20 05:30 96 17 125/67 (86) 83 08/13/20 05:00 133/65 08/13/20 05:00 100 17 133/65 (87) 83 08/13/20 04:37 103 18 141/68 (92) 84 08/13/20 04:30 167/84 08/13/20 04:30 108 18 167/84 (111) 83 08/13/20 04:00 Mechanical Ventilator 08/13/20 04:00 100 08/13/20 04:00 99.2 100 20 140/72 (94) 87 08/13/20 04:00 100 08/13/20 03:30 100 20 130/66 (87) 87 08/13/20 03:30 130/66 08/13/20 03:00 104 21 132/69 (90) 87 08/13/20 03:00 132/69 08/13/20 02:34 102 20 100 08/13/20 02:30 102 20 140/74 (96) 84 08/13/20 02:00 104 21 143/76 (98) 83 08/13/20 02:00 143/76 08/13/20 01:52 100.0 08/13/20 01:30 105 21 151/73 (99) 84 08/13/20 01:00 105 21 153/77 (102) 85 08/13/20 01:00 153/77 08/13/20 00:30 100.0 105 21 156/78 (104) 84 08/13/20 00:00 105 21 153/76 (101) 83 08/13/20 00:00 100 08/13/20 00:00 153/76 08/13/20 00:00 105 08/13/20 00:00 Mechanical Ventilator 08/12/20 23:45 106 21 152/73 (99) 83 08/12/20 23:30 162/81 08/12/20 23:30 107 21 162/81 (108) 82 08/12/20 23:15 109 21 151/75 (100) 80 08/12/20 23:00 107 20 148/75 (99) 78 08/12/20 23:00 148/75 08/12/20 22:59 106 20 100 08/12/20 22:45 109 21 150/82 (104) 78 08/12/20 22:30 109 20 153/73 (99) 75 08/12/20 22:15 108 21 146/71 (96) 73 08/12/20 22:00 140/68 08/12/20 22:00 109 149/68 08/12/20 22:00 108 21 140/68 (92) 71 08/12/20 21:46 114 20 147/66 (93) 69 08/12/20 21:45 115 20 153/70 (97) 69 08/12/20 21:30 99 20 65/33 (44) 73 08/12/20 21:00 119/62 08/12/20 21:00 123/60 08/12/20 21:00 104 21 123/60 (81) 72 08/12/20 20:30 104 21 130/66 (87) 71 08/12/20 20:00 Mechanical Ventilator 08/12/20 20:00 99.1 109 22 134/69 (90) 75 08/12/20 20:00 100 08/12/20 19:42 105 25 100 08/12/20 19:30 104 21 123/60 (81) 61 08/12/20 19:16 102 08/12/20 19:00 101 20 117/54 (75) 58 08/12/20 19:00 117/54 08/12/20 18:00 100 20 117/54 (75) 60 08/12/20 18:00 117/54 08/12/20 17:30 101 20 103/48 (66) 58 08/12/20 17:00 98.9 99 20 113/54 (73) 63 08/12/20 17:00 113/54 08/12/20 16:18 99 26 100 08/12/20 16:00 100 08/12/20 16:00 95 17 83/38 (53) 42 08/12/20 16:00 67/32 08/12/20 16:00 98 08/12/20 16:00 Mechanical Ventilator 08/12/20 15:00 86 16 89/41 (57) 47 08/12/20 15:00 89/41 08/12/20 14:47 83 16 100 08/12/20 14:15 81 20 103/49 (67) 51 08/12/20 14:00 97/48 08/12/20 14:00 81 20 97/48 (64) 47 08/12/20 13:45 81 20 97/43 (61) 44 08/12/20 13:30 81 15 99/48 (65) 47 08/12/20 13:30 81 16 100 08/12/20 13:24 75 17 118/56 (76) 46 08/12/20 13:15 71 16 66/35 (45) 52 08/12/20 13:13 73 89/48 08/12/20 13:00 96 19 89/48 (62) 70 08/12/20 13:00 89/48 08/12/20 12:00 99 08/12/20 12:00 100 08/12/20 12:00 Mechanical Ventilator 08/12/20 12:00 98.9 99 20 90/48 (62) 64 08/12/20 12:00 89/48 08/12/20 11:20 99 20 100 08/12/20 11:00 93/53 08/12/20 11:00 98 20 93/53 (66) 69 08/12/20 10:00 97 19 78/38 (51) 80 08/12/20 10:00 78/38 Intake and Output 08/12/20 08/13/20 19:00 07:00 Intake Total 2130.0 ml 1771.25 ml Output Total 370 ml 1000 ml Balance 1760.0 ml 771.25 ml IV Total 1430.0 ml 1676.25 ml Tube Feeding 420 ml 35 ml Other 280 ml 60 ml Output Urine Total 370 ml 1000 ml # Bowel Movements 1 2 Laboratory Tests 08/12/20 14:50: Arterial Blood pH 7.202*L, Arterial Blood Partial Pressure CO2 78.4*H, Arterial Blood Partial Pressure O2 27.7*L, Arterial Blood HCO3 30.1H, Arterial Blood Oxygen Saturation 51.4*L, Arterial Blood Base Excess 0.3, Mehdi Test Positive 08/12/20 20:05: Sodium Level 131L, Potassium Level 5.3H, Chloride Level 94L, Carbon Dioxide Level 29, Anion Gap 8, Blood Urea Nitrogen 108H, Creatinine 4.1H, Estimat Glomerular Filtration Rate 14.7, Glucose Level 460#H, Calcium Level 8.0L 08/13/20 04:35: Sodium Level 133L, Potassium Level 4.6, Chloride Level 97L, Carbon Dioxide Level 31, Anion Gap 5, Blood Urea Nitrogen 104H, Creatinine 4.0H, Estimat Glomerular Filtration Rate 15.1, Glucose Level 213#H, Calcium Level 7.9L, White Blood Count 24.0*H, Red Blood Count 3.13L, Hemoglobin 10.2L, Hematocrit 29.8L, Mean Corpuscular Volume 95, Mean Corpuscular Hemoglobin 32.5H, Mean Corpuscular Hemoglobin Concent 34.1, Red Cell Distribution Width 11.5L, Platelet Count 153, Mean Platelet Volume 8.0, Neutrophils (%) (Auto) , Lymphocytes (%) (Auto) , Monocytes (%) (Auto) , Eosinophils (%) (Auto) , Basophils (%) (Auto) , Neutrophils % (Manual) [Pending], Lymphocytes % (Manual) [Pending], Platelet Estimate [Pending], Platelet Morphology [Pending], Phosphorus Level 5.9H, Magnesium Level 2.8H, Total Bilirubin 0.4, Aspartate Amino Transf (AST/SGOT) 370H, Alanine Aminotransferase (ALT/SGPT) 62, Alkaline Phosphatase 145H, Total Protein 5.2L, Albumin 2.1L, Globulin 3.1, Albumin/Globulin Ratio 0.7L Height (Feet): 5 Height (Inches): 5.00 Weight (Pounds): 160 General Appearance: lethargic EENT: normal ENT inspection Neck: supple Cardiovascular: normal rate Respiratory/Chest: decreased breath sounds Abdomen: normal bowel sounds, non tender, soft Extremities: non-tender Assessment/Plan Problem List: (1) Hypoxia ICD Codes: R09.02 - Hypoxemia SNOMED: 899647641 (2) Bilateral pneumonia ICD Codes: J18.9 - Pneumonia, unspecified organism SNOMED: 739503956, 170548965 (3) Acute respiratory failure with hypoxia ICD Codes: J96.01 - Acute respiratory failure with hypoxia SNOMED: 33731709, 675943148 (4) Bradycardia ICD Codes: R00.1 - Bradycardia, unspecified SNOMED: 97520279 (5) Malnutrition ICD Codes: E46 - Unspecified protein-calorie malnutrition SNOMED: 15995515 (6) Shock liver ICD Codes: K72.00 - Acute and subacute hepatic failure without coma SNOMED: 665768958 (7) ERIKA (acute kidney injury) ICD Codes: N17.9 - Acute kidney failure, unspecified SNOMED: 2185466, 11407927 Status: unchanged Assessment/Plan: NGTF on hold over night, patient on insulin drip covid care fu labs abx per ID shock liver>>>fu LFTS>>>improving bowel regimen poor prognosis will Enoch Beverly MD Aug 13, 2020 09:29
--- NOTE | 2020-08-13 09:34 | Surgery Progress Note ---
Surgery Progress Note Subjective Additional Comments not stable for head CT on support ill appearing non responsive labs noted Objective Last 24 Hour Vital Signs Date Time Temp Pulse Resp B/P (MAP) Pulse Ox O2 Delivery O2 Flow Rate FiO2 08/13/20 09:00 89 18 127/69 (88) 88 08/13/20 08:30 90 17 121/71 (88) 87 08/13/20 08:00 Mechanical Ventilator 08/13/20 08:00 100 08/13/20 08:00 129/67 08/13/20 08:00 98.6 91 18 123/67 (85) 88 08/13/20 07:30 93 17 121/63 (82) 85 08/13/20 07:00 124/64 08/13/20 07:00 94 16 124/64 (84) 84 08/13/20 06:30 94 19 122/64 (83) 84 08/13/20 06:00 97 16 126/65 (85) 80 08/13/20 06:00 126/65 08/13/20 05:39 96 125/67 08/13/20 05:30 96 17 125/67 (86) 83 08/13/20 05:00 133/65 08/13/20 05:00 100 17 133/65 (87) 83 08/13/20 04:37 103 18 141/68 (92) 84 08/13/20 04:30 167/84 08/13/20 04:30 108 18 167/84 (111) 83 08/13/20 04:00 Mechanical Ventilator 08/13/20 04:00 100 08/13/20 04:00 99.2 100 20 140/72 (94) 87 08/13/20 04:00 100 08/13/20 03:30 100 20 130/66 (87) 87 08/13/20 03:30 130/66 08/13/20 03:00 104 21 132/69 (90) 87 08/13/20 03:00 132/69 08/13/20 02:34 102 20 100 08/13/20 02:30 102 20 140/74 (96) 84 08/13/20 02:00 104 21 143/76 (98) 83 08/13/20 02:00 143/76 08/13/20 01:52 100.0 08/13/20 01:30 105 21 151/73 (99) 84 08/13/20 01:00 105 21 153/77 (102) 85 08/13/20 01:00 153/77 08/13/20 00:30 100.0 105 21 156/78 (104) 84 08/13/20 00:00 105 21 153/76 (101) 83 08/13/20 00:00 100 08/13/20 00:00 153/76 08/13/20 00:00 105 08/13/20 00:00 Mechanical Ventilator 08/12/20 23:45 106 21 152/73 (99) 83 08/12/20 23:30 162/81 08/12/20 23:30 107 21 162/81 (108) 82 08/12/20 23:15 109 21 151/75 (100) 80 08/12/20 23:00 107 20 148/75 (99) 78 08/12/20 23:00 148/75 08/12/20 22:59 106 20 100 08/12/20 22:45 109 21 150/82 (104) 78 08/12/20 22:30 109 20 153/73 (99) 75 08/12/20 22:15 108 21 146/71 (96) 73 08/12/20 22:00 140/68 08/12/20 22:00 109 149/68 08/12/20 22:00 108 21 140/68 (92) 71 08/12/20 21:46 114 20 147/66 (93) 69 08/12/20 21:45 115 20 153/70 (97) 69 08/12/20 21:30 99 20 65/33 (44) 73 08/12/20 21:00 119/62 08/12/20 21:00 123/60 08/12/20 21:00 104 21 123/60 (81) 72 08/12/20 20:30 104 21 130/66 (87) 71 08/12/20 20:00 Mechanical Ventilator 08/12/20 20:00 99.1 109 22 134/69 (90) 75 08/12/20 20:00 100 08/12/20 19:42 105 25 100 08/12/20 19:30 104 21 123/60 (81) 61 08/12/20 19:16 102 08/12/20 19:00 101 20 117/54 (75) 58 08/12/20 19:00 117/54 08/12/20 18:00 100 20 117/54 (75) 60 08/12/20 18:00 117/54 08/12/20 17:30 101 20 103/48 (66) 58 08/12/20 17:00 98.9 99 20 113/54 (73) 63 08/12/20 17:00 113/54 08/12/20 16:18 99 26 100 08/12/20 16:00 100 08/12/20 16:00 95 17 83/38 (53) 42 08/12/20 16:00 67/32 08/12/20 16:00 98 08/12/20 16:00 Mechanical Ventilator 08/12/20 15:00 86 16 89/41 (57) 47 08/12/20 15:00 89/41 08/12/20 14:47 83 16 100 08/12/20 14:15 81 20 103/49 (67) 51 08/12/20 14:00 97/48 08/12/20 14:00 81 20 97/48 (64) 47 08/12/20 13:45 81 20 97/43 (61) 44 08/12/20 13:30 81 15 99/48 (65) 47 08/12/20 13:30 81 16 100 08/12/20 13:24 75 17 118/56 (76) 46 08/12/20 13:15 71 16 66/35 (45) 52 08/12/20 13:13 73 89/48 08/12/20 13:00 96 19 89/48 (62) 70 08/12/20 13:00 89/48 08/12/20 12:00 99 08/12/20 12:00 100 08/12/20 12:00 Mechanical Ventilator 08/12/20 12:00 98.9 99 20 90/48 (62) 64 08/12/20 12:00 89/48 08/12/20 11:20 99 20 100 08/12/20 11:00 93/53 08/12/20 11:00 98 20 93/53 (66) 69 08/12/20 10:00 97 19 78/38 (51) 80 08/12/20 10:00 78/38 I&O Intake and Output 08/12/20 08/13/20 19:00 07:00 Intake Total 2130.0 ml 1771.25 ml Output Total 370 ml 1000 ml Balance 1760.0 ml 771.25 ml IV Total 1430.0 ml 1676.25 ml Tube Feeding 420 ml 35 ml Other 280 ml 60 ml Output Urine Total 370 ml 1000 ml # Bowel Movements 1 2 Dressing: saturated Cardiovascular: RSR Respiratory: decreased breath sounds Abdomen: soft, non-tender, present bowel sounds, non-distended Extremities: no tenderness, no cyanosis Laboratory Tests Test 08/12/20 14:50 08/12/20 20:05 08/13/20 04:35 Arterial Blood pH 7.202 (7.350-7.450) Arterial Blood Partial Pressure CO2 78.4 mmHg (35.0-45.0) *H Arterial Blood Partial Pressure O2 27.7 mmHg (75.0-100.0) Arterial Blood HCO3 30.1 mmol/L (22.0-26.0) H Arterial Blood Oxygen Saturation 51.4 % (95-100) *L Arterial Blood Base Excess 0.3 (-2-2) Mehdi Test Positive Sodium Level 131 MMOL/L (136-145) L 133 MMOL/L (136-145) L Potassium Level 5.3 MMOL/L (3.5-5.1) H 4.6 MMOL/L (3.5-5.1) Chloride Level 94 MMOL/L (98-107) L 97 MMOL/L (98-107) L Carbon Dioxide Level 29 MMOL/L (21-32) 31 MMOL/L (21-32) Anion Gap 8 mmol/L (5-15) 5 mmol/L (5-15) Blood Urea Nitrogen 108 mg/dL (7-18) H 104 mg/dL (7-18) H Creatinine 4.1 MG/DL (0.55-1.30) H 4.0 MG/DL (0.55-1.30) H Estimat Glomerular Filtration Rate 14.7 mL/min (>60) 15.1 mL/min (>60) Glucose Level 460 MG/DL (74-106) #H 213 MG/DL (74-106) #H Calcium Level 8.0 MG/DL (8.5-10.1) L 7.9 MG/DL (8.5-10.1) L White Blood Count 24.0 K/UL (4.8-10.8) *H Red Blood Count 3.13 M/UL (4.70-6.10) L Hemoglobin 10.2 G/DL (14.2-18.0) L Hematocrit 29.8 % (42.0-52.0) L Mean Corpuscular Volume 95 FL (80-99) Mean Corpuscular Hemoglobin 32.5 PG (27.0-31.0) H Mean Corpuscular Hemoglobin Concent 34.1 G/DL (32.0-36.0) Red Cell Distribution Width 11.5 % (11.6-14.8) L Platelet Count 153 K/UL (150-450) Mean Platelet Volume 8.0 FL (6.5-10.1) Neutrophils (%) (Auto) % (45.0-75.0) Lymphocytes (%) (Auto) % (20.0-45.0) Monocytes (%) (Auto) % (1.0-10.0) Eosinophils (%) (Auto) % (0.0-3.0) Basophils (%) (Auto) % (0.0-2.0) Neutrophils % (Manual) Pending Lymphocytes % (Manual) Pending Platelet Estimate Pending Platelet Morphology Pending Phosphorus Level 5.9 MG/DL (2.5-4.9) H Magnesium Level 2.8 MG/DL (1.8-2.4) H Total Bilirubin 0.4 MG/DL (0.2-1.0) Aspartate Amino Transf (AST/SGOT) 370 U/L (15-37) H Alanine Aminotransferase (ALT/SGPT) 62 U/L (12-78) Alkaline Phosphatase 145 U/L (46-116) H Total Protein 5.2 G/DL (6.4-8.2) L Albumin 2.1 G/DL (3.4-5.0) L Globulin 3.1 g/dL Albumin/Globulin Ratio 0.7 (1.0-2.7) L Plan Problems: (1) Hypoxia (2) Bilateral pneumonia (3) Acute respiratory failure with hypoxia Assessment & Plan: ards covid negative as per pulm id input appreciated abd pain likely cramping indigestion from ill ness ppi ordered okay for diet monitor intake am labs will follow with exam and recs acute decline intubated in ICU on vent liver insufficiency acute hepatic in sufficiency renal insufficiency no acute surgical intervention needs resuscitation meds reviewed (4) Bradycardia (5) Malnutrition Assessment & Plan: DAILY ESTIMATED NEEDS: Needs based on Criticms care 64.5kg abw 22-28 kcals/kg 7502-3421 total kcals 1.2-2 g protein/kg 77-129 g total protein 25-30 mL/kg 1415-6751 total fluid mLs NUTRITION DIAGNOSIS: Altered nutrition related lab values related to clinical status as evidenced by elev LD(665), elev WBC(trending down 17.7), elev BG(132-176), elevated lytes(K, phos, mg), elev renal labs (BUN73, creat 3.2), elev LFT's ENTERAL NUTRITION RECOMMENDATIONS: As medically able, rec non oral feeds: NEPRO @35ml/hr x24 hrs to provide 840ml, 1512 kcal, 68g pro, 611ml free H2O - With hemodynamic stability, rec OGt feeds to meet est needs. - Start Nepro @15ml/hr for 6 hrs, advance as tolerated 10ml/hr q4-6 hrs to goal - Flush per MD. HOB over 30 degrees - When tolerating TF at goal, add Prosource 1 pack daily to better meet est pro needs. ADDITIONAL RECOMMENDATIONS: 1) recalibrate bed scale wt for accurate CBW 2) Monitor BG, need for NISS 3) TF recs as above when stable for feeds . (6) Shock liver Assessment & Plan: worsening lft's likely hydration resuscitation trend labs improving (7) ERIKA (acute kidney injury) Vern Quevedo Aug 13, 2020 09:34
--- NOTE | 2020-08-13 10:30 | NUR ---
NURSE NOTES: Spoke to pt's daughter in law and updated her on pt's current condition and answered her questions.
--- NOTE | 2020-08-13 11:51 | Infectious Diseases Prog Note ---
Assessment/Plan Assessment/Plan antibiotics : ceftriaxone A 1. covid 19 pneumonia on 100 % Fi O2 with 88 % saturation 2. respiratory failure P 1. continue solumedrol 2. continue ceftriaxone 3. continue isolation Subjective ROS Limited/Unobtainable: Yes Allergies: Coded Allergies: No Known Allergies (Unverified , 07/29/20) Objective Last 24 Hour Vital Signs Date Time Temp Pulse Resp B/P (MAP) Pulse Ox O2 Delivery O2 Flow Rate FiO2 08/13/20 11:00 133/70 08/13/20 11:00 86 16 133/70 (91) 88 08/13/20 10:00 115/58 08/13/20 10:00 86 17 129/69 (89) 88 08/13/20 09:00 89 18 127/69 (88) 88 08/13/20 09:00 126/68 08/13/20 08:30 90 17 121/71 (88) 87 08/13/20 08:00 Mechanical Ventilator 08/13/20 08:00 100 08/13/20 08:00 129/67 08/13/20 08:00 86 08/13/20 08:00 98.6 91 18 123/67 (85) 88 08/13/20 07:30 93 17 121/63 (82) 85 08/13/20 07:20 87 17 100 08/13/20 07:00 124/64 08/13/20 07:00 94 16 124/64 (84) 84 08/13/20 06:30 94 19 122/64 (83) 84 08/13/20 06:00 97 16 126/65 (85) 80 08/13/20 06:00 126/65 08/13/20 05:39 96 125/67 08/13/20 05:30 96 17 125/67 (86) 83 08/13/20 05:00 133/65 08/13/20 05:00 100 17 133/65 (87) 83 08/13/20 04:37 103 18 141/68 (92) 84 08/13/20 04:30 167/84 08/13/20 04:30 108 18 167/84 (111) 83 08/13/20 04:00 Mechanical Ventilator 08/13/20 04:00 100 08/13/20 04:00 99.2 100 20 140/72 (94) 87 08/13/20 04:00 100 08/13/20 03:30 100 20 130/66 (87) 87 08/13/20 03:30 130/66 08/13/20 03:00 104 21 132/69 (90) 87 08/13/20 03:00 132/69 08/13/20 02:34 102 20 100 08/13/20 02:30 102 20 140/74 (96) 84 08/13/20 02:00 104 21 143/76 (98) 83 08/13/20 02:00 143/76 08/13/20 01:52 100.0 08/13/20 01:30 105 21 151/73 (99) 84 08/13/20 01:00 105 21 153/77 (102) 85 08/13/20 01:00 153/77 08/13/20 00:30 100.0 105 21 156/78 (104) 84 08/13/20 00:00 105 21 153/76 (101) 83 08/13/20 00:00 100 08/13/20 00:00 153/76 08/13/20 00:00 105 08/13/20 00:00 Mechanical Ventilator 08/12/20 23:45 106 21 152/73 (99) 83 08/12/20 23:30 162/81 08/12/20 23:30 107 21 162/81 (108) 82 08/12/20 23:15 109 21 151/75 (100) 80 08/12/20 23:00 107 20 148/75 (99) 78 08/12/20 23:00 148/75 08/12/20 22:59 106 20 100 08/12/20 22:45 109 21 150/82 (104) 78 08/12/20 22:30 109 20 153/73 (99) 75 08/12/20 22:15 108 21 146/71 (96) 73 08/12/20 22:00 140/68 08/12/20 22:00 109 149/68 08/12/20 22:00 108 21 140/68 (92) 71 08/12/20 21:46 114 20 147/66 (93) 69 08/12/20 21:45 115 20 153/70 (97) 69 08/12/20 21:30 99 20 65/33 (44) 73 08/12/20 21:00 119/62 1/19/21 21:00 123/60 08/12/20 21:00 104 21 123/60 (81) 72 08/12/20 20:30 104 21 130/66 (87) 71 08/12/20 20:00 Mechanical Ventilator 08/12/20 20:00 99.1 109 22 134/69 (90) 75 08/12/20 20:00 100 08/12/20 19:42 105 25 100 08/12/20 19:30 104 21 123/60 (81) 61 08/12/20 19:16 102 08/12/20 19:00 101 20 117/54 (75) 58 08/12/20 19:00 117/54 08/12/20 18:00 100 20 117/54 (75) 60 08/12/20 18:00 117/54 08/12/20 17:30 101 20 103/48 (66) 58 08/12/20 17:00 98.9 99 20 113/54 (73) 63 08/12/20 17:00 113/54 08/12/20 16:18 99 26 100 08/12/20 16:00 100 08/12/20 16:00 95 17 83/38 (53) 42 08/12/20 16:00 67/32 08/12/20 16:00 98 08/12/20 16:00 Mechanical Ventilator 08/12/20 15:00 86 16 89/41 (57) 47 08/12/20 15:00 89/41 08/12/20 14:47 83 16 100 08/12/20 14:15 81 20 103/49 (67) 51 08/12/20 14:00 97/48 08/12/20 14:00 81 20 97/48 (64) 47 08/12/20 13:45 81 20 97/43 (61) 44 08/12/20 13:30 81 15 99/48 (65) 47 08/12/20 13:30 81 16 100 08/12/20 13:24 75 17 118/56 (76) 46 08/12/20 13:15 71 16 66/35 (45) 52 08/12/20 13:13 73 89/48 08/12/20 13:00 96 19 89/48 (62) 70 08/12/20 13:00 89/48 08/12/20 12:00 99 08/12/20 12:00 100 08/12/20 12:00 Mechanical Ventilator 08/12/20 12:00 98.9 99 20 90/48 (62) 64 08/12/20 12:00 89 Height (Feet): 5 Height (Inches): 5.00 Weight (Pounds): 160 Laboratory Tests Test 08/12/20 14:50 08/12/20 20:05 08/13/20 04:35 Arterial Blood pH 7.202 (7.350-7.450) Arterial Blood Partial Pressure CO2 78.4 mmHg (35.0-45.0) *H Arterial Blood Partial Pressure O2 27.7 mmHg (75.0-100.0) Arterial Blood HCO3 30.1 mmol/L (22.0-26.0) H Arterial Blood Oxygen Saturation 51.4 % (95-100) *L Arterial Blood Base Excess 0.3 (-2-2) Mehdi Test Positive Sodium Level 131 MMOL/L (136-145) L 133 MMOL/L (136-145) L Potassium Level 5.3 MMOL/L (3.5-5.1) H 4.6 MMOL/L (3.5-5.1) Chloride Level 94 MMOL/L (98-107) L 97 MMOL/L (98-107) L Carbon Dioxide Level 29 MMOL/L (21-32) 31 MMOL/L (21-32) Anion Gap 8 mmol/L (5-15) 5 mmol/L (5-15) Blood Urea Nitrogen 108 mg/dL (7-18) H 104 mg/dL (7-18) H Creatinine 4.1 MG/DL (0.55-1.30) H 4.0 MG/DL (0.55-1.30) H Estimat Glomerular Filtration Rate 14.7 mL/min (>60) 15.1 mL/min (>60) Glucose Level 460 MG/DL (74-106) #H 213 MG/DL (74-106) #H Calcium Level 8.0 MG/DL (8.5-10.1) L 7.9 MG/DL (8.5-10.1) L White Blood Count 24.0 K/UL (4.8-10.8) *H Red Blood Count 3.13 M/UL (4.70-6.10) L Hemoglobin 10.2 G/DL (14.2-18.0) L Hematocrit 29.8 % (42.0-52.0) L Mean Corpuscular Volume 95 FL (80-99) Mean Corpuscular Hemoglobin 32.5 PG (27.0-31.0) H Mean Corpuscular Hemoglobin Concent 34.1 G/DL (32.0-36.0) Red Cell Distribution Width 11.5 % (11.6-14.8) L Platelet Count 153 K/UL (150-450) Mean Platelet Volume 8.0 FL (6.5-10.1) Neutrophils (%) (Auto) % (45.0-75.0) Lymphocytes (%) (Auto) % (20.0-45.0) Monocytes (%) (Auto) % (1.0-10.0) Eosinophils (%) (Auto) % (0.0-3.0) Basophils (%) (Auto) % (0.0-2.0) Differential Total Cells Counted 100 Neutrophils % (Manual) 89 % (45-75) H Lymphocytes % (Manual) 3 % (20-45) L Monocytes % (Manual) 4 % (1-10) Eosinophils % (Manual) 1 % (0-3) Basophils % (Manual) 0 % (0-2) Myelocytes % 3 % (0-0) H Band Neutrophils 0 % (0-8) Platelet Estimate Adequate Platelet Morphology Normal Hypochromasia 1+ Phosphorus Level 5.9 MG/DL (2.5-4.9) H Magnesium Level 2.8 MG/DL (1.8-2.4) H Total Bilirubin 0.4 MG/DL (0.2-1.0) Aspartate Amino Transf (AST/SGOT) 370 U/L (15-37) H Alanine Aminotransferase (ALT/SGPT) 62 U/L (12-78) Alkaline Phosphatase 145 U/L (46-116) H Total Protein 5.2 G/DL (6.4-8.2) L Albumin 2.1 G/DL (3.4-5.0) L Globulin 3.1 g/dL Albumin/Globulin Ratio 0.7 (1.0-2.7) L Current Medications Medications (Trade) Dose Ordered Sig/Fabiano Route PRN Reason Start Time Stop Time Status Last Admin Dose Admin Acetaminophen (Tylenol) 650 mg Q4H PRN NG Temp >100.5 08/03/20 04:15 09/02/20 04:14 08/11/20 00:05 Acetaminophen (Tylenol) 650 mg Q4H PRN RECTAL Temp >100.5 08/01/20 20:30 08/31/20 20:29 08/13/20 01:22 Albuterol Sulfate (Proventil MDI) 2 puff Q4H PRN INH Shortness of Breath 07/29/20 22:45 10/27/20 22:44 Ceftriaxone Sodium 1 gm/ Sodium Chloride 55 ml @ 110 mls/hr Q24H IVPB 08/13/20 10:00 08/20/20 09:59 08/13/20 09:13 Cetylpyridinium Chloride (Cepacol) 1 lozg Q2H PRN [place] For Cough 07/30/20 21:00 10/28/20 20:59 08/01/20 08:47 Chlorhexidine Gluconate (Marisela-Hex 2%) 1 applic DAILY@2000 TOPIC 08/08/20 20:00 11/06/20 19:59 08/12/20 19:41 Clonidine HCl (Catapres Tab) 0.1 mg Q2H PRN ORAL SBP > 170mmHg 08/04/20 09:45 11/02/20 09:44 08/07/20 23:20 Dextrose 1,000 ml @ 100 mls/hr Q10H IV 08/06/20 12:15 09/05/20 12:14 08/13/20 03:32 Dextrose (Dextrose 50%) 25 ml Q30M PRN IV HYPOGLYCEMIA 08/12/20 19:00 11/10/20 18:59 Dextrose (Dextrose 50%) 50 ml Q30M PRN IV HYPOGLYCEMIA 08/12/20 19:00 11/10/20 18:59 Diltiazem HCl (Cardizem Tab) 120 mg Q8HR GT 08/08/20 22:00 09/07/20 21:59 08/12/20 13:13 Docusate Sodium (Colace) 100 mg Q12HR GT 08/08/20 21:00 09/07/20 20:59 08/13/20 09:11 Enoxaparin Sodium (Lovenox) 30 mg DAILY SUBQ 08/02/20 10:00 10/31/20 09:59 08/13/20 09:12 Guaifenesin/ Dextromethorphan (Robitussin DM Syrup) 15 ml Q6H PRN ORAL For Cough 07/31/20 08:30 10/29/20 08:29 08/01/20 08:47 Insulin Human (Reg)/Sodium Chloride 100 ml @ 0 mls/hr Q24H IV 08/12/20 23:45 11/10/20 23:44 08/13/20 03:33 Insulin Human Regular (NovoLIN R) 5 units PRN PRN IV BS 200-299 08/12/20 19:00 11/10/20 18:59 08/13/20 05:32 Insulin Human Regular (NovoLIN R) 10 units PRN PRN IV BS=>300 08/12/20 19:00 11/10/20 18:59 08/13/20 01:38 Methylprednisolone Sodium Succinate (Solu-MEDROL) 40 mg EVERY 12 HOURS IVP 08/12/20 09:09 11/02/20 12:29 08/13/20 09:11 Miscellaneous Medication (Insulin Rate Change) 1 ea PRN PRN MISC Per rx protocol 08/12/20 19:00 11/10/20 18:59 08/13/20 05:33 Norepinephrine Bitartrate 8 mg/ Sodium Chloride 500 ml @ 0 mls/hr Q24H PRN IV For hypotension 08/12/20 21:00 08/15/20 20:59 08/12/20 21:00 Pantoprazole (Protonix) 40 mg DAILY IVP 08/06/20 10:00 09/05/20 09:59 08/13/20 09:11 Polyethylene Glycol (Miralax) 17 gm BEDTIME ORAL 08/06/20 21:00 09/05/20 20:59 08/12/20 20:59 Vitamin D (Vitamin D) 5,000 unit DAILY GT 08/11/20 10:15 09/10/20 10:14 08/13/20 09:11 Santosh Cheek MD Aug 13, 2020 11:51
--- NOTE | 2020-08-13 12:20 | NUR ---
NURSE NOTES: Levophed continues to run @ 2mcg/min. SBP remains >90. O2sat 86% on fiO2 100%
--- NOTE | 2020-08-13 13:31 | NUR ---
[employer] SI: Respiratory failure,, ETT/vent support COVID PNA, ARF T-98.1, HR 86, RR 16, BP 128/73, O2 sat 86% AC 16, TV 500, PEEP 8.0 FiO2 100% WBC 24.0. BUN 104, Creatinine 4.0, Na+ 133, Ast 370, Alk Phos 145 cxray bilateral infiltrates unchanged IS: Rocephin IV QD Cardizem GT q 8 h Lovenox SQ QD Protonix IVP QD Levophed GTT Solu Medrol IVP q 12 h Albumin Human IV ICU Status
--- NOTE | 2020-08-13 13:37 | Nephrology Progress Note ---
Assessment/Plan Problem List: (1) ERIKA (acute kidney injury) (2) Shock liver (3) Acute respiratory failure with hypoxia (4) Bilateral pneumonia Assessment Acute renal failure. Most likely due to hypotensive and shock from 8 PM last night to 5 AM this morning. Hyperkalemia. Acute hypoxic respiratory failure. Pneumonia with COVID-19. Elevated transaminase, most likely shock liver. Plan August 13: Labs reviewed. Last dialyzed August 11. Last evening the patient was hypotensive with poor oxygenation. Patient responded to albumin and fluid challenge. IV Lasix given. Today on 2 pressors. Remains hemodynamically unstable. Discussed with RN. Still do not have the EEG results. Continue current care. Unstable for dialysis today. Will check lab tomorrow. August 12: Labs reviewed. Patient dialyzed yesterday. Discussed with RN. Patient had EEG done last night which appears to have no brain activity. Waiting for neuro advice regarding brain activity. Will discontinue dialysis plans if the patient considered brain . August 11: Lab reviewed. Renal parameters worsening. Due for insertion of dialysis catheter today. Patient's head CT scan was not done due to change in condition. Vitamin D supplements started for low vitamin D level. August 10: Lab reviewed. Renal parameters worsening. Patient unresponsive. Remains on ventilator. Remains full code. Due for CT scan of the head. Will plan for dialysis catheter and dialysis should the head CT results are desirable. Discussed with RN Anastasiia. August 09: Labs reviewed. Potassium elevated. Kayexalate given. Serum sodium gradually improving. Continue D5W. Continue per consultants. Continue monitor renal parameters and electrolytes. August 08: Labs reviewed. Renal parameters stable. Abnormal electrolytes noted. Continue current management. Albumin bolus given. Continue to monitor current state August 07: Labs reviewed. Neutra-Phos via NG tube given. Serum sodium and serum potassium lowering. Medication list reviewed. Levemir and Cardizem doses were adjusted by consultants. Continue to monitor renal parameters. August 06: Labs reviewed. Serum potassium 5.2. Serum sodium 152. Will change IV to D5W. Will start with the Levemir 10 mg nightly. August 05: Labs reviewed. Renal parameters improving. LFTs gradually improving. IV changed to half-normal saline. Continue to monitor blood sugar. Continue to monitor renal parameters. Patient full code. Cardizem dose increased. August 04: Renal parameters improving. LFTs remain elevated. Hemodynamically stable. Continue to monitor renal parameters. Continue per consultants. Discussed with CARLOS Greene. August 03: Patient intubated on ventilator. Renal parameters worsening. LFTs elevated. Patient is deteriorating. Will consider dialysis treatment if no reversal of kidney failure. Discussed with CARLOS Alexis. Previously: Albumin bolus Increase IV fluid Kayexalate for high potassium Monitor renal parameters Subjective ROS Limited/Unobtainable: Yes Objective Objective Last 24 Hour Vital Signs Date Time Temp Pulse Resp B/P (MAP) Pulse Ox O2 Delivery O2 Flow Rate FiO2 08/13/20 13:01 86 128/73 08/13/20 13:00 128/73 08/13/20 13:00 85 16 128/73 (91) 86 08/13/20 12:00 98.1 89 16 133/75 (94) 86 08/13/20 12:00 133/75 08/13/20 12:00 Mechanical Ventilator 08/13/20 12:00 100 08/13/20 11:00 133/70 08/13/20 11:00 86 16 133/70 (91) 88 08/13/20 10:00 115/58 08/13/20 10:00 86 17 129/69 (89) 88 08/13/20 09:00 89 18 127/69 (88) 88 08/13/20 09:00 126/68 08/13/20 08:30 90 17 121/71 (88) 87 08/13/20 08:00 Mechanical Ventilator 08/13/20 08:00 100 08/13/20 08:00 129/67 08/13/20 08:00 86 08/13/20 08:00 98.6 91 18 123/67 (85) 88 08/13/20 07:30 93 17 121/63 (82) 85 08/13/20 07:20 87 17 100 08/13/20 07:00 124/64 08/13/20 07:00 94 16 124/64 (84) 84 08/13/20 06:30 94 19 122/64 (83) 84 08/13/20 06:00 97 16 126/65 (85) 80 08/13/20 06:00 126/65 08/13/20 05:39 96 125/67 08/13/20 05:30 96 17 125/67 (86) 83 08/13/20 05:00 133/65 08/13/20 05:00 100 17 133/65 (87) 83 08/13/20 04:37 103 18 141/68 (92) 84 08/13/20 04:30 167/84 08/13/20 04:30 108 18 167/84 (111) 83 08/13/20 04:00 Mechanical Ventilator 08/13/20 04:00 100 08/13/20 04:00 99.2 100 20 140/72 (94) 87 08/13/20 04:00 100 08/13/20 03:30 100 20 130/66 (87) 87 08/13/20 03:30 130/66 08/13/20 03:00 104 21 132/69 (90) 87 08/13/20 03:00 132/69 08/13/20 02:34 102 20 100 08/13/20 02:30 102 20 140/74 (96) 84 08/13/20 02:00 104 21 143/76 (98) 83 08/13/20 02:00 143/76 08/13/20 01:52 100.0 08/13/20 01:30 105 21 151/73 (99) 84 08/13/20 01:00 105 21 153/77 (102) 85 08/13/20 01:00 153/77 08/13/20 00:30 100.0 105 21 156/78 (104) 84 08/13/20 00:00 105 21 153/76 (101) 83 08/13/20 00:00 100 08/13/20 00:00 153/76 08/13/20 00:00 105 08/13/20 00:00 Mechanical Ventilator 08/12/20 23:45 106 21 152/73 (99) 83 08/12/20 23:30 162/81 08/12/20 23:30 107 21 162/81 (108) 82 08/12/20 23:15 109 21 151/75 (100) 80 08/12/20 23:00 107 20 148/75 (99) 78 08/12/20 23:00 148/75 08/12/20 22:59 106 20 100 08/12/20 22:45 109 21 150/82 (104) 78 08/12/20 22:30 109 20 153/73 (99) 75 08/12/20 22:15 108 21 146/71 (96) 73 08/12/20 22:00 140/68 08/12/20 22:00 109 149/68 08/12/20 22:00 108 21 140/68 (92) 71 08/12/20 21:46 114 20 147/66 (93) 69 08/12/20 21:45 115 20 153/70 (97) 69 08/12/20 21:30 99 20 65/33 (44) 73 08/12/20 21:00 119/62 08/12/20 21:00 123/60 08/12/20 21:00 104 21 123/60 (81) 72 08/12/20 20:30 104 21 130/66 (87) 71 08/12/20 20:00 Mechanical Ventilator 08/12/20 20:00 99.1 109 22 134/69 (90) 75 08/12/20 20:00 100 08/12/20 19:42 105 25 100 08/12/20 19:30 104 21 123/60 (81) 61 08/12/20 19:16 102 08/12/20 19:00 101 20 117/54 (75) 58 08/12/20 19:00 117/54 08/12/20 18:00 100 20 117/54 (75) 60 08/12/20 18:00 117/54 08/12/20 17:30 101 20 103/48 (66) 58 08/12/20 17:00 98.9 99 20 113/54 (73) 63 08/12/20 17:00 113/54 08/12/20 16:18 99 26 100 08/12/20 16:00 100 08/12/20 16:00 95 17 83/38 (53) 42 08/12/20 16:00 67/32 08/12/20 16:00 98 08/12/20 16:00 Mechanical Ventilator 08/12/20 15:00 86 16 89/41 (57) 47 08/12/20 15:00 89/41 08/12/20 14:47 83 16 100 08/12/20 14:15 81 20 103/49 (67) 51 08/12/20 14:00 97/48 08/12/20 14:00 81 20 97/48 (64) 47 08/12/20 13:45 81 20 97/43 (61) 44 Intake and Output 08/12/20 08/13/20 18:59 06:59 Intake Total 2092.5 ml 1843.75 ml Output Total 390 ml 980 ml Balance 1702.5 ml 863.75 ml IV Total 1392.5 ml 1713.75 ml Tube Feeding 420 ml 70 ml Other 280 ml 60 ml Output Urine Total 390 ml 980 ml # Bowel Movements 1 2 Laboratory Tests 08/12/20 14:50: Arterial Blood pH 7.202*L, Arterial Blood Partial Pressure CO2 78.4*H, Arterial Blood Partial Pressure O2 27.7*L, Arterial Blood HCO3 30.1H, Arterial Blood Oxygen Saturation 51.4*L, Arterial Blood Base Excess 0.3, Mehdi Test Positive 08/12/20 20:05: Sodium Level 131L, Potassium Level 5.3H, Chloride Level 94L, Carbon Dioxide Level 29, Anion Gap 8, Blood Urea Nitrogen 108H, Creatinine 4.1H, Estimat Glomerular Filtration Rate 14.7, Glucose Level 460#H, Calcium Level 8.0L 08/13/20 04:35: Sodium Level 133L, Potassium Level 4.6, Chloride Level 97L, Carbon Dioxide Level 31, Anion Gap 5, Blood Urea Nitrogen 104H, Creatinine 4.0H, Estimat Glomerular Filtration Rate 15.1, Glucose Level 213#H, Calcium Level 7.9L, White Blood Count 24.0*H, Red Blood Count 3.13L, Hemoglobin 10.2L, Hematocrit 29.8L, Mean Corpuscular Volume 95, Mean Corpuscular Hemoglobin 32.5H, Mean Corpuscular Hem oglobin Concent 34.1, Red Cell Distribution Width 11.5L, Platelet Count 153, Mean Platelet Volume 8.0, Neutrophils (%) (Auto) , Lymphocytes (%) (Auto) , Monocytes (%) (Auto) , Eosinophils (%) (Auto) , Basophils (%) (Auto) , Differential Total Cells Counted 100, Neutrophils % (Manual) 89H, Lymphocytes % (Manual) 3L, Monocytes % (Manual) 4, Eosinophils % (Manual) 1, Basophils % (Manual) 0, Myelocytes % 3H, Band Neutrophils 0, Platelet Estimate Adequate, Platelet Morphology Normal, Hypochromasia 1+, Phosphorus Level 5.9H, Magnesium Level 2.8H, Total Bilirubin 0.4, Aspartate Amino Transf (AST/SGOT) 370H, Alanine Aminotransferase (ALT/SGPT) 62, Alkaline Phosphatase 145H, Total Protein 5.2L, A lbumin 2.1L, Globulin 3.1, Albumin/Globulin Ratio 0.7L Height (Feet): 5 Height (Inches): 5.00 Weight (Pounds): 160 General Appearance: no apparent distress EENT: other - Intubated on ventilator Cardiovascular: normal rate Respiratory/Chest: decreased breath sounds Abdomen: distended Neurologic: other - Unresponsive Jared Everett MD Aug 13, 2020 13:37
--- NOTE | 2020-08-13 14:20 | NUR ---
NURSE NOTES: Pt turned and repositioned for comfort. Tube feeding resumed- Nepro @ 35mL/hr. HOB elevated 30 degrees. Maintenance fluid changed to NS @ 75mL/hr.
--- NOTE | 2020-08-13 15:08 | Cardiac Electrophysiology PN ---
Assessment/Plan Assessment/Plan 1. Bradycardia off any sinus-galen or AV-galen blocking agents. Resolved. Tolerating Cardizem. Echocardiogram EF 60% 2. Atral fib with RVR. On Cardizem 120 tid. Can't use Amiodarone for shock liver that is improving 3. Respiratory failure due to Covid PNA intubated on 100% Fio2 and PEEP 8 4. Acute renal failure with BUN/Cr 129/4.2 S/P Right IJ Kevin. 5. Shock Liver with AST and ALT >1100. Better now 6. Sepsis. White count still 26,000 on IV antibiotic 7. Comatose. S/P EEG. Awaiting final reading and Neuro eval 8. Hypotension on Levophed 2 mcg DW RN and Dr Everett Subjective Subjective In ICU intubated on 100% Fio2 and PEEP 8. Had atrial fib with RVR and started on Cardizem drip that was DCed EF 60%. On Cardizem 120 tid. S/P Right IJ Kevin by Radiology at bedside in ICU Comatose with no activity on EEG. Awaiting brain eval by Neuro On D5w and insulin drip Objective Last 24 Hour Vital Signs Date Time Temp Pulse Resp B/P (MAP) Pulse Ox O2 Delivery O2 Flow Rate FiO2 08/13/20 15:00 124/74 08/13/20 14:30 86 16 127/75 (92) 86 08/13/20 14:00 132/75 08/13/20 14:00 86 17 137/76 (96) 88 08/13/20 13:01 86 128/73 08/13/20 13:00 128/73 08/13/20 13:00 85 16 128/73 (91) 86 08/13/20 12:00 98.1 89 16 133/75 (94) 86 08/13/20 12:00 133/75 08/13/20 12:00 83 08/13/20 12:00 Mechanical Ventilator 08/13/20 12:00 100 08/13/20 11:00 133/70 08/13/20 11:00 86 16 133/70 (91) 88 08/13/20 10:00 115/58 08/13/20 10:00 86 17 129/69 (89) 88 08/13/20 09:00 89 18 127/69 (88) 88 08/13/20 09:00 126/68 08/13/20 08:30 90 17 121/71 (88) 87 08/13/20 08:00 Mechanical Ventilator 08/13/20 08:00 100 08/13/20 08:00 129/67 08/13/20 08:00 86 08/13/20 08:00 98.6 91 18 123/67 (85) 88 08/13/20 07:30 93 17 121/63 (82) 85 08/13/20 07:20 87 17 100 08/13/20 07:00 124/64 08/13/20 07:00 94 16 124/64 (84) 84 08/13/20 06:30 94 19 122/64 (83) 84 08/13/20 06:00 97 16 126/65 (85) 80 08/13/20 06:00 126/65 08/13/20 05:39 96 125/67 08/13/20 05:30 96 17 125/67 (86) 83 08/13/20 05:00 133/65 08/13/20 05:00 100 17 133/65 (87) 83 08/13/20 04:37 103 18 141/68 (92) 84 08/13/20 04:30 167/84 08/13/20 04:30 108 18 167/84 (111) 83 08/13/20 04:00 Mechanical Ventilator 08/13/20 04:00 100 08/13/20 04:00 99.2 100 20 140/72 (94) 87 08/13/20 04:00 100 08/13/20 03:30 100 20 130/66 (87) 87 08/13/20 03:30 130/66 08/13/20 03:00 104 21 132/69 (90) 87 08/13/20 03:00 132/69 08/13/20 02:34 102 20 100 08/13/20 02:30 102 20 140/74 (96) 84 08/13/20 02:00 104 21 143/76 (98) 83 08/13/20 02:00 143/76 08/13/20 01:52 100.0 08/13/20 01:30 105 21 151/73 (99) 84 08/13/20 01:00 105 21 153/77 (102) 85 08/13/20 01:00 153/77 1/20/21 00:30 100.0 105 21 156/78 (104) 84 08/13/20 00:00 105 21 153/76 (101) 83 08/13/20 00:00 100 08/13/20 00:00 153/76 08/13/20 00:00 105 08/13/20 00:00 Mechanical Ventilator 08/12/20 23:45 106 21 152/73 (99) 83 08/12/20 23:30 162/81 08/12/20 23:30 107 21 162/81 (108) 82 08/12/20 23:15 109 21 151/75 (100) 80 08/12/20 23:00 107 20 148/75 (99) 78 08/12/20 23:00 148/75 08/12/20 22:59 106 20 100 08/12/20 22:45 109 21 150/82 (104) 78 08/12/20 22:30 109 20 153/73 (99) 75 08/12/20 22:15 108 21 146/71 (96) 73 08/12/20 22:00 140/68 08/12/20 22:00 109 149/68 08/12/20 22:00 108 21 140/68 (92) 71 08/12/20 21:46 114 20 147/66 (93) 69 08/12/20 21:45 115 20 153/70 (97) 69 08/12/20 21:30 99 20 65/33 (44) 73 08/12/20 21:00 119/62 08/12/20 21:00 123/60 08/12/20 21:00 104 21 123/60 (81) 72 08/12/20 20:30 104 21 130/66 (87) 71 08/12/20 20:00 Mechanical Ventilator 08/12/20 20:00 99.1 109 22 134/69 (90) 75 08/12/20 20:00 100 08/12/20 19:42 105 25 100 08/12/20 19:30 104 21 123/60 (81) 61 08/12/20 19:16 102 08/12/20 19:00 101 20 117/54 (75) 58 08/12/20 19:00 117/54 08/12/20 18:00 100 20 117/54 (75) 60 08/12/20 18:00 117/54 08/12/20 17:30 101 20 103/48 (66) 58 08/12/20 17:00 98.9 99 20 113/54 (73) 63 08/12/20 17:00 113/54 08/12/20 16:18 99 26 100 08/12/20 16:00 100 08/12/20 16:00 95 17 83/38 (53) 42 08/12/20 16:00 67/32 08/12/20 16:00 98 08/12/20 16:00 Mechanical Ventilator Intake and Output 08/12/20 08/13/20 19:00 07:00 Intake Total 2130.0 ml 1771.25 ml Output Total 370 ml 1000 ml Balance 1760.0 ml 771.25 ml IV Total 1430.0 ml 1676.25 ml Tube Feeding 420 ml 35 ml Other 280 ml 60 ml Output Urine Total 370 ml 1000 ml # Bowel Movements 1 2 Laboratory Tests Test 08/12/20 20:05 08/13/20 04:35 Sodium Level 131 MMOL/L (136-145) L 133 MMOL/L (136-145) L Potassium Level 5.3 MMOL/L (3.5-5.1) H 4.6 MMOL/L (3.5-5.1) Chloride Level 94 MMOL/L (98-107) L 97 MMOL/L (98-107) L Carbon Dioxide Level 29 MMOL/L (21-32) 31 MMOL/L (21-32) Anion Gap 8 mmol/L (5-15) 5 mmol/L (5-15) Blood Urea Nitrogen 108 mg/dL (7-18) H 104 mg/dL (7-18) H Creatinine 4.1 MG/DL (0.55-1.30) H 4.0 MG/DL (0.55-1.30) H Estimat Glomerular Filtration Rate 14.7 mL/min (>60) 15.1 mL/min (>60) Glucose Level 460 MG/DL (74-106) #H 213 MG/DL (74-106) #H Calcium Level 8.0 MG/DL (8.5-10.1) L 7.9 MG/DL (8.5-10.1) L White Blood Count 24.0 K/UL (4.8-10.8) *H Red Blood Count 3.13 M/UL (4.70-6.10) L Hemoglobin 10.2 G/DL (14.2-18.0) L Hematocrit 29.8 % (42.0-52.0) L Mean Corpuscular Volume 95 FL (80-99) Mean Corpuscular Hemoglobin 32.5 PG (27.0-31.0) H Mean Corpuscular Hemoglobin Concent 34.1 G/DL (32.0-36.0) Red Cell Distribution Width 11.5 % (11.6-14.8) L Platelet Count 153 K/UL (150-450) Mean Platelet Volume 8.0 FL (6.5-10.1) Neutrophils (%) (Auto) % (45.0-75.0) Lymphocytes (%) (Auto) % (20.0-45.0) Monocytes (%) (Auto) % (1.0-10.0) Eosinophils (%) (Auto) % (0.0-3.0) Basophils (%) (Auto) % (0.0-2.0) Differential Total Cells Counted 100 Neutrophils % (Manual) 89 % (45-75) H Lymphocytes % (Manual) 3 % (20-45) L Monocytes % (Manual) 4 % (1-10) Eosinophils % (Manual) 1 % (0-3) Basophils % (Manual) 0 % (0-2) Myelocytes % 3 % (0-0) H Band Neutrophils 0 % (0-8) Platelet Estimate Adequate Platelet Morphology Normal Hypochromasia 1+ Phosphorus Level 5.9 MG/DL (2.5-4.9) H Magnesium Level 2.8 MG/DL (1.8-2.4) H Total Bilirubin 0.4 MG/DL (0.2-1.0) Aspartate Amino Transf (AST/SGOT) 370 U/L (15-37) H Alanine Aminotransferase (ALT/SGPT) 62 U/L (12-78) Alkaline Phosphatase 145 U/L (46-116) H Total Protein 5.2 G/DL (6.4-8.2) L Albumin 2.1 G/DL (3.4-5.0) L Globulin 3.1 g/dL Albumin/Globulin Ratio 0.7 (1.0-2.7) L Objective HEAD AND NECK: Showed no JVD. LUNGS: Clear. CARDIOVASCULAR: Shows regular S1 and S2 with no gallop. ABDOMEN: Soft. EXTREMITIES: No pitting edema. Navjot Bains MD Aug 13, 2020 15:08
--- NOTE | 2020-08-13 16:15 | NUR ---
NURSE NOTES: Pt remains on Levophed 2mcg/min to maintain SBP >90. Insulin drip running at 2 units/hr. O2sat 40% on 100% FiO2.
--- NOTE | 2020-08-13 17:02 | Diagnostic Imaging Report ---
Indication: Post nasogastric tube placement Technique: Supine view of the abdomen Comparison: 08/02/2020 Findings: There is a nasogastric tube, shaft coiled in the gastric fundus, tip projected at the level gastric fundus body junction, in good position. Bowel gas pattern is unremarkable. The included lung bases demonstrate extensive infiltrates. The tip of a dialysis catheter is seen in the right atrium Impression: Satisfactory nasogastric tube placement Other findings as noted
--- NOTE | 2020-08-13 17:30 | NUR ---
NURSE NOTES: NGT replaced d/t being clogged. XRAY confirmed placement, per radiologist Dr Pepper. Tube feedings resumed.
--- NOTE | 2020-08-13 18:11 | NUR ---
NURSE NOTES: Pt fully cleaned and linens changed. No BM noted at this time. Insulin drip increased to 4 units/hr for BS 128mg/dL. Insulin drip remains in Algorithm 4
--- NOTE | 2020-08-13 19:04 | NUR ---
NURSE HAND-OFF REPORT: Latest Vital Signs: Temperature 98.9 , Pulse 75 , B/P 93 /50 , Respiratory Rate 17 , O2 SAT 78 , Mechanical Ventilator, FiO2 100% . Vital Sign Comment: EKG Rhythm: Sinus Rhythm Rhythm change?: N MD Notified?: MD Response: Latest Orozco Fall Score: 70 Fall Risk: High Risk Safety Measures: Call light Within Reach, Bed Alarm Zone 1, Side Rails Side Rails x2, Bed position Low and Locked. Fall Precautions: Yellow Socks Door Sign Patient Fall Education Report given to CARLOS Bowie.
--- NOTE | 2020-08-13 19:15 | NUR ---
NURSE NOTES: Received pt in bed, unresponsive and comatose, on vent via ETT saturating between 70's-80% on 100% FiO2 and Peep of 8. OGT in place with Nepro running at 35cc/hr with no residuals noted. NS infusing at 75cc/hr via right hand #20 and levophed 8mg running at 2mcg/min via pigtail on [facility]. [place] cath in place draining light yellow colored urine. VS stable and pt is sinus rhythm on the monitor.
--- NOTE | 2020-08-13 19:30 | NUR ---
NURSE NOTES: Pt remains stable. Blood sugar 140. Insulin drip increased to 5.5u/hr per Algorithm 4. Will continue to monitor pt.
[2020-08-13] MEDS: Miralax 17gm pkt ORAL SCH (20:32)
[2020-08-13] MEDS: Dyna-Hex 2% Top Sol 2oz TOPIC SCH (20:32)
--- NOTE | 2020-08-13 21:30 | NUR ---
Pt's condition remains unchanged. BS 149. No change in insulin drip. Pt repositioned for comfort.
--- NOTE | 2020-08-13 21:57 | Neurology Progress Note ---
Interim History Interim History ROS Limited/Unobtainable: Yes Interim History remains unstable for ct brain eeg read pending Objective Physical Exam Last Vital Signs Date Time Temp Pulse Resp B/P (MAP) Pulse Ox O2 Delivery O2 Flow Rate FiO2 08/13/20 21:00 86 17 91/44 (60) 65 08/13/20 20:00 Mechanical Ventilator 08/13/20 20:00 100 08/13/20 20:00 97.9 08/04/20 19:00 100.0 Laboratory Tests Test 08/13/20 04:35 08/13/20 13:25 08/13/20 15:26 White Blood Count 24.0 K/UL (4.8-10.8) *H Red Blood Count 3.13 M/UL (4.70-6.10) L Hemoglobin 10.2 G/DL (14.2-18.0) L Hematocrit 29.8 % (42.0-52.0) L Mean Corpuscular Volume 95 FL (80-99) Mean Corpuscular Hemoglobin 32.5 PG (27.0-31.0) H Mean Corpuscular Hemoglobin Concent 34.1 G/DL (32.0-36.0) Red Cell Distribution Width 11.5 % (11.6-14.8) L Platelet Count 153 K/UL (150-450) Mean Platelet Volume 8.0 FL (6.5-10.1) Neutrophils (%) (Auto) % (45.0-75.0) Lymphocytes (%) (Auto) % (20.0-45.0) Monocytes (%) (Auto) % (1.0-10.0) Eosinophils (%) (Auto) % (0.0-3.0) Basophils (%) (Auto) % (0.0-2.0) Differential Total Cells Counted 100 Neutrophils % (Manual) 89 % (45-75) H Lymphocytes % (Manual) 3 % (20-45) L Monocytes % (Manual) 4 % (1-10) Eosinophils % (Manual) 1 % (0-3) Basophils % (Manual) 0 % (0-2) Myelocytes % 3 % (0-0) H Band Neutrophils 0 % (0-8) Platelet Estimate Adequate Platelet Morphology Normal Hypochromasia 1+ Sodium Level 133 MMOL/L (136-145) L Potassium Level 4.6 MMOL/L (3.5-5.1) Chloride Level 97 MMOL/L (98-107) L Carbon Dioxide Level 31 MMOL/L (21-32) Anion Gap 5 mmol/L (5-15) Blood Urea Nitrogen 104 mg/dL (7-18) H Creatinine 4.0 MG/DL (0.55-1.30) H Estimat Glomerular Filtration Rate 15.1 mL/min (>60) Glucose Level 213 MG/DL (74-106) #H Calcium Level 7.9 MG/DL (8.5-10.1) L Phosphorus Level 5.9 MG/DL (2.5-4.9) H Magnesium Level 2.8 MG/DL (1.8-2.4) H Total Bilirubin 0.4 MG/DL (0.2-1.0) Aspartate Amino Transf (AST/SGOT) 370 U/L (15-37) H Alanine Aminotransferase (ALT/SGPT) 62 U/L (12-78) Alkaline Phosphatase 145 U/L (46-116) H Total Protein 5.2 G/DL (6.4-8.2) L Albumin 2.1 G/DL (3.4-5.0) L Globulin 3.1 g/dL Albumin/Globulin Ratio 0.7 (1.0-2.7) L POC Whole Blood Glucose 97 MG/DL (74-106) 96 MG/DL (74-106) Neurologic Exam Objective intubated, sedated per nurse earlier pupils reactive, no movement to pain Impression/Recommendations Problems: (1) Hypoxia (2) Bilateral pneumonia (3) Acute respiratory failure with hypoxia (4) Bradycardia (5) Malnutrition (6) Shock liver (7) ERIKA (acute kidney injury) (8) Diabetes mellitus out of control Status: unchanged Diagnostic Impression Prolonged admission with septic shock, resp failure, now kidney failure on HD LFTs worsening ro anoxic brain injury icu level map > 65 prognosis is poor EEG ordered CT brain if stable to go down Gabriel Villanueva MD Aug 13, 2020 21:57
--- NOTE | 2020-08-13 22:21 | Pulmonology Progress Note ---
Subjective ROS Limited/Unobtainable: Yes Interval Events: Intubated 08/01/20 Constitutional: Reports: fever, other - Bb=335.4 in am HEENT: Repors: no symptoms Respiratory: Reports: no symptoms Cardiovascular: Reports: no symptoms Gastrointestinal/Abdominal: Reports: no symptoms Musculoskeletal: Denies: pain Allergies: Coded Allergies: No Known Allergies (Unverified , 07/29/20) All Systems: reviewed and negative except above Objective Last 24 Hour Vital Signs Date Time Temp Pulse Resp B/P (MAP) Pulse Ox O2 Delivery O2 Flow Rate FiO2 08/13/20 22:00 88 94/46 08/13/20 22:00 89 18 94/46 (62) 75 08/13/20 21:00 86 17 91/44 (60) 65 08/13/20 20:00 Mechanical Ventilator 08/13/20 20:00 79 08/13/20 20:00 100 08/13/20 20:00 97.9 75 17 93/50 (64) 78 08/13/20 19:46 81 16 100 08/13/20 19:00 75 17 93/50 (64) 78 08/13/20 19:00 93/50 08/13/20 18:00 83 18 119/65 (83) 86 08/13/20 18:00 119/65 08/13/20 17:00 69 16 87/46 (60) 44 08/13/20 17:00 87/46 08/13/20 16:00 63 08/13/20 16:00 98.9 63 16 82/44 (57) 65 08/13/20 16:00 100 08/13/20 16:00 82/44 08/13/20 16:00 Mechanical Ventilator 08/13/20 15:15 84 16 100 08/13/20 15:00 124/74 08/13/20 15:00 84 16 124/74 (91) 85 08/13/20 14:30 86 16 127/75 (92) 86 08/13/20 14:00 132/75 08/13/20 14:00 86 17 137/76 (96) 88 08/13/20 13:01 86 128/73 08/13/20 13:00 128/73 08/13/20 13:00 85 16 128/73 (91) 86 08/13/20 12:00 98.1 89 16 133/75 (94) 86 08/13/20 12:00 133/75 08/13/20 12:00 83 08/13/20 12:00 Mechanical Ventilator 08/13/20 12:00 100 08/13/20 11:15 84 16 100 08/13/20 11:00 133/70 08/13/20 11:00 86 16 133/70 (91) 88 08/13/20 10:00 115/58 08/13/20 10:00 86 17 129/69 (89) 88 08/13/20 09:00 89 18 127/69 (88) 88 08/13/20 09:00 126/68 08/13/20 08:30 90 17 121/71 (88) 87 08/13/20 08:00 Mechanical Ventilator 08/13/20 08:00 100 08/13/20 08:00 129/67 08/13/20 08:00 86 08/13/20 08:00 98.6 91 18 123/67 (85) 88 08/13/20 07:30 93 17 121/63 (82) 85 08/13/20 07:20 87 17 100 08/13/20 07:00 124/64 08/13/20 07:00 94 16 124/64 (84) 84 08/13/20 06:30 94 19 122/64 (83) 84 08/13/20 06:00 97 16 126/65 (85) 80 08/13/20 06:00 126/65 08/13/20 05:39 96 125/67 08/13/20 05:30 96 17 125/67 (86) 83 08/13/20 05:00 133/65 08/13/20 05:00 100 17 133/65 (87) 83 08/13/20 04:37 103 18 141/68 (92) 84 08/13/20 04:30 167/84 08/13/20 04:30 108 18 167/84 (111) 83 08/13/20 04:00 Mechanical Ventilator 08/13/20 04:00 100 08/13/20 04:00 99.2 100 20 140/72 (94) 87 08/13/20 04:00 100 08/13/20 03:30 100 20 130/66 (87) 87 08/13/20 03:30 130/66 08/13/20 03:00 104 21 132/69 (90) 87 08/13/20 03:00 132/69 08/13/20 02:34 102 20 100 08/13/20 02:30 102 20 140/74 (96) 84 08/13/20 02:00 104 21 143/76 (98) 83 08/13/20 02:00 143/76 08/13/20 01:52 100.0 08/13/20 01:30 105 21 151/73 (99) 84 08/13/20 01:00 105 21 153/77 (102) 85 08/13/20 01:00 153/77 08/13/20 00:30 100.0 105 21 156/78 (104) 84 08/13/20 00:00 105 21 153/76 (101) 83 08/13/20 00:00 100 08/13/20 00:00 153/76 08/13/20 00:00 105 08/13/20 00:00 Mechanical Ventilator 08/12/20 23:45 106 21 152/73 (99) 83 08/12/20 23:30 162/81 08/12/20 23:30 107 21 162/81 (108) 82 08/12/20 23:15 109 21 151/75 (100) 80 08/12/20 23:00 107 20 148/75 (99) 78 08/12/20 23:00 148/75 08/12/20 22:59 106 20 100 08/12/20 22:45 109 21 150/82 (104) 78 08/12/20 22:30 109 20 153/73 (99) 75 Intake and Output 08/12/20 08/13/20 19:00 07:00 Intake Total 2130.0 ml 1771.25 ml Output Total 370 ml 1000 ml Balance 1760.0 ml 771.25 ml IV Total 1430.0 ml 1676.25 ml Tube Feeding 420 ml 35 ml Other 280 ml 60 ml Output Urine Total 370 ml 1000 ml # Bowel Movements 1 2 General Appearance: no acute distress HEENT: normocephalic, atraumatic Respiratory: lungs clear Cardiovascular: normal rate, regular rhythm Abdomen: soft, non tender Laboratory Tests 08/13/20 04:35: White Blood Count 24.0*H, Red Blood Count 3.13L, Hemoglobin 10.2L, Hematocrit 29.8L, Mean Corpuscular Volume 95, Mean Corpuscular Hemoglobin 32.5H, Mean Corpuscular Hemoglobin Concent 34.1, Red Cell Distribution Width 11.5L, Platelet Count 153, Mean Platelet Volume 8.0, Neutrophils (%) (Auto) , Lymphocytes (%) (Auto) , Monocytes (%) (Auto) , Eosinophils (%) (Auto) , Basophils (%) (Auto) , Differential Total Cells Counted 100, Neutrophils % (Manual) 89H, Lymphocytes % (Manual) 3L, Monocytes % (Manual) 4, Eosinophils % (Manual) 1, Basophils % (Manual) 0, Myelocytes % 3H, Band Neutrophils 0, Platelet Estimate Adequate, Platelet Morphology Normal, Hypochromasia 1+, Sodium Level 133L, Potassium Level 4.6, Chloride Level 97L, Carbon Dioxide Level 31, Anion Gap 5, Blood Urea Nitrogen 104H, Creatinine 4.0H, Estimat Glomerular Filtration Rate 15.1, Glucose Level 213#H, Calcium Level 7.9L, Phosphorus Level 5.9H, Magnesium Level 2.8H, Total Bilirubin 0.4, Aspartate Amino Transf (AST/SGOT) 370H, Alanine Aminotransferase (ALT/SGPT) 62, Alkaline Phosphatase 145H, Total Protein 5.2L, Albumin 2.1L, Globulin 3.1, Albumin/Globulin Ratio 0.7L 08/13/20 13:25: POC Whole Blood Glucose 97 08/13/20 15:26: POC Whole Blood Glucose 96 Current Medications Medications (Trade) Dose Ordered Sig/Fabiano Route PRN Reason Start Time Stop Time Status Last Admin Dose Admin Acetaminophen (Tylenol) 650 mg Q4H PRN NG Temp >100.5 08/03/20 04:15 09/02/20 04:14 08/11/20 00:05 Acetaminophen (Tylenol) 650 mg Q4H PRN RECTAL Temp >100.5 08/01/20 20:30 08/31/20 20:29 08/13/20 01:22 Albuterol Sulfate (Proventil MDI) 2 puff Q4H PRN INH Shortness of Breath 07/29/20 22:45 10/27/20 22:44 Ceftriaxone Sodium 1 gm/ Sodium Chloride 55 ml @ 110 mls/hr Q24H IVPB 08/13/20 10:00 08/20/20 09:59 08/13/20 09:13 Cetylpyridinium Chloride (Cepacol) 1 lozg Q2H PRN [place] For Cough 07/30/20 21:00 10/28/20 20:59 08/01/20 08:47 Chlorhexidine Gluconate (Marisela-Hex 2%) 1 applic DAILY@2000 TOPIC 08/08/20 20:00 11/06/20 19:59 08/13/20 20:32 Clonidine HCl (Catapres Tab) 0.1 mg Q2H PRN ORAL SBP > 170mmHg 08/04/20 09:45 11/02/20 09:44 08/07/20 23:20 Dextrose (Dextrose 50%) 25 ml Q30M PRN IV HYPOGLYCEMIA 08/12/20 19:00 11/10/20 18:59 Dextrose (Dextrose 50%) 50 ml Q30M PRN IV HYPOGLYCEMIA 08/12/20 19:00 11/10/20 18:59 Diltiazem HCl (Cardizem Tab) 120 mg Q8HR GT 08/08/20 22:00 09/07/20 21:59 08/13/20 13:01 Docusate Sodium (Colace) 100 mg Q12HR GT 08/08/20 21:00 09/07/20 20:59 08/13/20 20:32 Enoxaparin Sodium (Lovenox) 30 mg DAILY SUBQ 08/02/20 10:00 10/31/20 09:59 08/13/20 09:12 Guaifenesin/ Dextromethorphan (Robitussin DM Syrup) 15 ml Q6H PRN ORAL For Cough 07/31/20 08:30 10/29/20 08:29 08/01/20 08:47 Insulin Human (Reg)/Sodium Chloride 100 ml @ 0 mls/hr Q24H IV 08/12/20 23:45 11/10/20 23:44 08/13/20 17:35 Insulin Human Regular (NovoLIN R) 5 units PRN PRN IV BS 200-299 08/12/20 19:00 11/10/20 18:59 08/13/20 05:32 Insulin Human Regular (NovoLIN R) 10 units PRN PRN IV BS=>300 08/12/20 19:00 11/10/20 18:59 08/13/20 01:38 Methylprednisolone Sodium Succinate (Solu-MEDROL) 40 mg EVERY 12 HOURS IVP 08/12/20 09:09 11/02/20 12:29 08/13/20 20:32 Miscellaneous Medication (Insulin Rate Change) 1 ea PRN PRN MISC Per rx protocol 08/12/20 19:00 11/10/20 18:59 08/13/20 05:33 Norepinephrine Bitartrate 8 mg/ Sodium Chloride 500 ml @ 0 mls/hr Q24H PRN IV For hypotension 08/12/20 21:00 08/15/20 20:59 08/12/20 21:00 Pantoprazole (Protonix) 40 mg DAILY IVP 08/06/20 10:00 09/05/20 09:59 08/13/20 09:11 Polyethylene Glycol (Miralax) 17 gm BEDTIME ORAL 08/06/20 21:00 09/05/20 20:59 08/13/20 20:32 Sodium Chloride 1,000 ml @ 75 mls/hr [id number] IV 08/13/20 13:30 09/12/20 13:29 08/13/20 13:35 Vitamin D (Vitamin D) 5,000 unit DAILY GT 08/11/20 10:15 09/10/20 10:14 08/13/20 09:11 Assessment/Plan Assessment/Plan 1. Respiratory Failure - intubated 08/01/20 - oxygenating poorly - Continue PEEP 8 - continue 100% Fio2; 2. Hyponatremia - per primary MD 3. Hyperglycemia - BG control 5. Pneumonia - abx per ID - on dexamethasone (07/30-) - now on remdesivir per ID (08/01-) 6. COVID-19 rapid negative - COVID-19 PCR positive 7. Elevated inflammatory markers; ferritin, D-Dimer - likely secondary to #5 - On Lovenox Discussed with son Remains totally unresponsive; off all sedation Noted neurology eval Has worsening of renal function Nephrology following Continue HD Grave prognosis Milton Antonio MD Aug 13, 2020 22:21
--- NOTE | 2020-08-13 23:30 | NUR ---
NURSE NOTES: Pt's condition remains unchanged. BS 161. Insulin drip increased to 7units/ hr per Algorithm 4. Pt repositioned for comfort
[2020-08-14] VITALS (27 sets, daily range): BP systolic 85–152; BP diastolic 42–82
--- NOTE | 2020-08-14 01:36 | NUR ---
NURSE NOTES: Pt's condition remains unchanged. BS 156. Insulin drip decreased to 5.5units/hr per Algorithm 4. Pt repositioned for comfort
--- NOTE | 2020-08-14 03:30 | NUR ---
NURSE NOTES: Pt's condition remains unchanged. BS 156. Insulin drip decreased to 5.5units/hr per Algorithm 4. Pt repositioned for comfort
[2020-08-14 05:30] LABS: HEMATOCRIT 28.6 % (42.0-52.0); HEMOGLOBIN 9.6 G/DL (14.2-18.0); MEAN CORPUSCULAR VOLUME 96 FL (80-99); PLATELET COUNT 168 K/UL (150-450); RED BLOOD COUNT 2.96 M/UL (4.70-6.10); RED CELL DISTRIBUTION WIDTH 12.2 % (11.6-14.8)
--- NOTE | 2020-08-14 05:30 | NUR ---
NURSE NOTES: Pt's condition remains unchanged. BS 140. Insulin drip will remain at 5.5units/hr per Algorithm 4. AM care given and pt repositioned for comfort. Bleeding from pt's mouth and right eye noted. Pt remains SR on the monitor.
[2020-08-14 05:47] LABS: WHITE BLOOD COUNT 25.1 K/UL (4.8-10.8)
[2020-08-14 05:58] LABS: ALBUMIN 2.2 G/DL (3.4-5.0); ALBUMIN/GLOBULIN RATIO 0.8 (1.0-2.7); BILIRUBIN,TOTAL 0.3 MG/DL (0.2-1.0); CALCIUM 7.8 MG/DL (8.5-10.1); CREATININE 4.3 MG/DL (0.55-1.30); POTASSIUM 5.2 MMOL/L (3.5-5.1)
[2020-08-14] MEDS: dilTIAZem HCl 60mg tab GT SCH (06:00)
--- NOTE | 2020-08-14 06:44 | General Progress Note ---
Subjective ROS Limited/Unobtainable: Yes Allergies: Coded Allergies: No Known Allergies (Unverified , 07/29/20) Subjective events note interval notes reviewed glucose values are controlled on insulin gtt Item Value Date Time Bedside Blood Glucose 140 mg/dl H 08/14/20 0600 Bedside Blood Glucose 156 mg/dl H 08/14/20 0200 Bedside Blood Glucose 149 mg/dl H 08/13/20 2200 Bedside Blood Glucose 128 mg/dl H 08/13/20 1800 Bedside Blood Glucose 97 mg/dl 08/13/20 1400 Bedside Blood Glucose 149 mg/dl H 08/13/20 1000 Objective Last 24 Hour Vital Signs Date Time Temp Pulse Resp B/P (MAP) Pulse Ox O2 Delivery O2 Flow Rate FiO2 08/14/20 06:00 105 20 90/54 (66) 78 08/14/20 06:00 106 90/54 08/14/20 05:00 99.0 98 20 118/62 (80) 87 08/14/20 05:00 118/62 08/14/20 04:00 Mechanical Ventilator 08/14/20 04:00 98 18 113/59 (77) 83 08/14/20 04:00 98 08/14/20 04:00 113/59 08/14/20 04:00 100 08/14/20 03:41 99 20 100 08/14/20 03:00 96 19 109/55 (73) 86 08/14/20 03:00 109/55 08/14/20 02:00 94 19 106/61 (76) 85 08/14/20 02:00 106/61 08/14/20 01:00 99/57 08/14/20 01:00 91 22 99/57 (71) 84 08/14/20 00:00 91 08/14/20 00:00 98.3 92 20 101/60 (74) 84 08/14/20 00:00 100 08/14/20 00:00 101/60 08/14/20 00:00 Mechanical Ventilator 08/13/20 23:45 93 19 100 08/13/20 23:00 91/48 08/13/20 23:00 91 18 91/48 (62) 78 08/13/20 22:00 94/46 08/13/20 22:00 88 94/46 08/13/20 22:00 89 18 94/46 (62) 75 08/13/20 21:00 86 17 91/44 (60) 65 08/13/20 21:00 91/44 08/13/20 20:00 Mechanical Ventilator 08/13/20 20:00 93/50 08/13/20 20:00 79 08/13/20 20:00 100 08/13/20 20:00 97.9 75 17 93/50 (64) 78 08/13/20 19:46 81 16 100 08/13/20 19:00 75 17 93/50 (64) 78 08/13/20 19:00 93/50 08/13/20 18:00 83 18 119/65 (83) 86 08/13/20 18:00 119/65 08/13/20 17:00 69 16 87/46 (60) 44 08/13/20 17:00 87/46 08/13/20 16:00 63 08/13/20 16:00 98.9 63 16 82/44 (57) 65 08/13/20 16:00 100 08/13/20 16:00 82/44 08/13/20 16:00 Mechanical Ventilator 08/13/20 15:15 84 16 100 08/13/20 15:00 124/74 08/13/20 15:00 84 16 124/74 (91) 85 08/13/20 14:30 86 16 127/75 (92) 86 08/13/20 14:00 132/75 08/13/20 14:00 86 17 137/76 (96) 88 08/13/20 13:01 86 128/73 08/13/20 13:00 128/73 08/13/20 13:00 85 16 128/73 (91) 86 08/13/20 12:00 98.1 89 16 133/75 (94) 86 08/13/20 12:00 133/75 08/13/20 12:00 83 08/13/20 12:00 Mechanical Ventilator 08/13/20 12:00 100 08/13/20 11:15 84 16 100 08/13/20 11:00 133/70 08/13/20 11:00 86 16 133/70 (91) 88 08/13/20 10:00 115/58 08/13/20 10:00 86 17 129/69 (89) 88 08/13/20 09:00 89 18 127/69 (88) 88 08/13/20 09:00 126/68 08/13/20 08:30 90 17 121/71 (88) 87 08/13/20 08:00 Mechanical Ventilator 08/13/20 08:00 100 08/13/20 08:00 129/67 08/13/20 08:00 86 08/13/20 08:00 98.6 91 18 123/67 (85) 88 08/13/20 07:30 93 17 121/63 (82) 85 08/13/20 07:20 87 17 100 08/13/20 07:00 124/64 08/13/20 07:00 94 16 124/64 (84) 84 Intake and Output 08/13/20 08/14/20 19:00 07:00 Intake Total 1747.116 ml 1410.0 ml Output Total 970 ml 250 ml Balance 777.116 ml 1160.0 ml IV Total 1607.116 ml 825.0 ml Tube Feeding 140 ml 385 ml Other 200 ml Output Urine Total 970 ml 250 ml Laboratory Tests 08/13/20 13:25: POC Whole Blood Glucose 97 08/13/20 15:26: POC Whole Blood Glucose 96 08/14/20 04:25: White Blood Count 25.1*H, Red Blood Count 2.96L, Hemoglobin 9.6L, Hematocrit 28.6L, Mean Corpuscular Volume 96, Mean Corpuscular Hemoglobin 32.5H, Mean Corpuscular Hemoglobin Concent 33.7, Red Cell Distribution Width 12.2, Platelet Count 168, Mean Platelet Volume 8.5, Neutrophils (%) (Auto) , Lymphocytes (%) (Auto) , Monocytes (%) (Auto) , Eosinophils (%) (Auto) , Basophils (%) (Auto) , Neutrophils % (Manual) [Pending], Lymphocytes % (Manual) [Pending], Platelet Estimate [Pending], Platelet Morphology [Pending], Sodium Level 135L, Potassium Level 5.2H, Chloride Level 99, Carbon Dioxide Level 29, Anion Gap 7, Blood Urea Nitrogen 123H, Creatinine 4.3H, Estimat Glomerular Filtration Rate 13.9, Glucose Level 138H, Uric Acid 8.3H, Calcium Level 7.8L, Phosphorus Level 8.0H, Magnesium Level 2.9H, Total Bilirubin 0.3, Aspartate Amino Transf (AST/SGOT) 345H, Alanine Aminotransferase (ALT/SGPT) 50, Alkaline Phosphatase 128H, C- Reactive Protein, Quantitative 2.5H, Pro-B-Type Natriuretic Peptide 20958L, Total Protein 4.9L, Albumin 2.2L, Globulin 2.7, Albumin/Globulin Ratio 0.8L Height (Feet): 5 Height (Inches): 5.00 Weight (Pounds): 160 Objective Current Medications Medications (Trade) Dose Ordered Sig/Fabiano Route PRN Reason Start Time Stop Time Status Last Admin Dose Admin Acetaminophen (Tylenol) 650 mg Q4H PRN NG Temp >100.5 08/03/20 04:15 09/02/20 04:14 08/11/20 00:05 Acetaminophen (Tylenol) 650 mg Q4H PRN RECTAL Temp >100.5 08/01/20 20:30 08/31/20 20:29 08/13/20 01:22 Albuterol Sulfate (Proventil MDI) 2 puff Q4H PRN INH Shortness of Breath 07/29/20 22:45 10/27/20 22:44 Ceftriaxone Sodium 1 gm/ Sodium Chloride 55 ml @ 110 mls/hr Q24H IVPB 08/13/20 10:00 08/20/20 09:59 08/13/20 09:13 Cetylpyridinium Chloride (Cepacol) 1 lozg Q2H PRN [place] For Cough 07/30/20 21:00 10/28/20 20:59 08/01/20 08:47 Chlorhexidine Gluconate (Marisela-Hex 2%) 1 applic DAILY@2000 TOPIC 08/08/20 20:00 11/06/20 19:59 08/13/20 20:32 Clonidine HCl (Catapres Tab) 0.1 mg Q2H PRN ORAL SBP > 170mmHg 08/04/20 09:45 11/02/20 09:44 08/07/20 23:20 Dextrose (Dextrose 50%) 25 ml Q30M PRN IV HYPOGLYCEMIA 08/12/20 19:00 11/10/20 18:59 Dextrose (Dextrose 50%) 50 ml Q30M PRN IV HYPOGLYCEMIA 08/12/20 19:00 11/10/20 18:59 Diltiazem HCl (Cardizem Tab) 120 mg Q8HR GT 08/08/20 22:00 09/07/20 21:59 08/13/20 13:01 Docusate Sodium (Colace) 100 mg Q12HR GT 08/08/20 21:00 09/07/20 20:59 08/13/20 20:32 Enoxaparin Sodium (Lovenox) 30 mg DAILY SUBQ 08/02/20 10:00 10/31/20 09:59 08/13/20 09:12 Guaifenesin/ Dextromethorphan (Robitussin DM Syrup) 15 ml Q6H PRN ORAL For Cough 07/31/20 08:30 10/29/20 08:29 08/01/20 08:47 Insulin Human (Reg)/Sodium Chloride 100 ml @ 0 mls/hr Q24H IV 08/12/20 23:45 11/10/20 23:44 08/13/20 17:35 Insulin Human Regular (NovoLIN R) 5 units PRN PRN IV BS 200-299 08/12/20 19:00 11/10/20 18:59 08/13/20 05:32 Insulin Human Regular (NovoLIN R) 10 units PRN PRN IV BS=>300 08/12/20 19:00 11/10/20 18:59 08/13/20 01:38 Methylprednisolone Sodium Succinate (Solu-MEDROL) 40 mg EVERY 12 HOURS IVP 08/12/20 09:09 11/02/20 12:29 08/13/20 20:32 Miscellaneous Medication (Insulin Rate Change) 1 ea PRN PRN MISC Per rx protocol 08/12/20 19:00 11/10/20 18:59 08/13/20 05:33 Norepinephrine Bitartrate 8 mg/ Sodium Chloride 500 ml @ 0 mls/hr Q24H PRN IV For hypotension 08/12/20 21:00 08/15/20 20:59 08/12/20 21:00 Pantoprazole (Protonix) 40 mg DAILY IVP 08/06/20 10:00 09/05/20 09:59 08/13/20 09:11 Polyethylene Glycol (Miralax) 17 gm BEDTIME ORAL 08/06/20 21:00 09/05/20 20:59 08/13/20 20:32 Sodium Chloride 1,000 ml @ 75 mls/hr [id number] IV 08/13/20 13:30 09/12/20 13:29 08/14/20 03:34 Vitamin D (Vitamin D) 5,000 unit DAILY GT 08/11/20 10:15 09/10/20 10:14 08/13/20 09:11 Assessment/Plan Problem List: (1) Diabetes mellitus out of control ICD Codes: E11.65 - Type 2 diabetes mellitus with hyperglycemia SNOMED: 79790398, 035018815 (2) Acute respiratory failure with hypoxia ICD Codes: J96.01 - Acute respiratory failure with hypoxia SNOMED: 67296625, 400070060 (3) Bilateral pneumonia ICD Codes: J18.9 - Pneumonia, unspecified organism SNOMED: 516922285, 386429342 Status: unchanged Assessment/Plan: continue insulin gtt glucose check every 2 hours switch back to sub Q insulin once off dextrose infusion Jeffrey Sinclair MD Aug 14, 2020 06:44
--- NOTE | 2020-08-14 07:29 | NUR ---
NURSE HAND-OFF REPORT: Latest Vital Signs: Temperature 99.0 , Pulse 101 , B/P 102 /53 , Respiratory Rate 20 , O2 SAT 84 , Mechanical Ventilator, O2 Flow Rate . Vital Sign Comment: EKG Rhythm: Sinus Rhythm Rhythm change?: N Notified?: Moi Guzman MD Response: Latest Orozco Fall Score: 70 Fall Risk: High Risk Safety Measures: Call light Within Reach, Bed Alarm Zone 1, Side Rails Side Rails x2, Bed position Low and Locked. Fall Precautions: Yellow Socks Door Sign Patient Fall Education Report given to CARLOS Shin.
--- NOTE | 2020-08-14 07:30 | NUR ---
NURSE NOTES: Report received from Anibal GONZALEZ.Pt resting in bed ,non responsive to verbal stimuli,noted no resp distress,orally,intubated,ETT 7.5,lip line 24,ordered vent settings not tolerated,O2 sat low on the 80's with !00%,OGT feeding Nepro at 35 ml/hr,no residual noted,[place] cath draining yellow urine,,skin warm and edematous , RT IJ Kevin cath intact with Levophed drip at 2mcg infusing at 7.5 ml/hr,Insulin drip 5.5 at units/hr,SR up HOB elevated bed lock in lowest position will continue with plans of care.
[2020-08-14] MEDS: Pantoprazole Inj IVP SCH (09:10)
[2020-08-14] MEDS: Docusate 100mg/10ml Liq GT SCH ×2 (09:10→20:38)
[2020-08-14] MEDS: Vitamin D 1000 units Tab GT SCH (09:10)
[2020-08-14] MEDS: Solu-MEDROL 125mg Inj IVP SCH ×2 (09:10→20:38)
[2020-08-14] MEDS: Enoxaparin 30mg Inj SUBQ SCH (09:11)
[2020-08-14] MEDS: cefTRIAXone 1 GM in NS 55 ML IVPB SCH (09:12)
--- NOTE | 2020-08-14 09:53 | Infectious Diseases Prog Note ---
Assessment/Plan Assessment/Plan A; Pneumonia,with COVID19 disease Leukocytosis Acute renal failure, worsening Hyperkalemia Hypoxic, hypercapnic respiratory failure Lactic acidosis Elevated transaminase DM type 2 with Hyperglycemia Brain , no activity on EEG PLAN: 1. Continue Rocephin 2. Continue Solumedrol 3. Continue isolation. Subjective ROS Limited/Unobtainable: Yes Allergies: Coded Allergies: No Known Allergies (Unverified , 07/29/20) Objective Last 24 Hour Vital Signs Date Time Temp Pulse Resp B/P (MAP) Pulse Ox O2 Delivery O2 Flow Rate FiO2 08/14/20 08:00 98.6 102 20 100/55 (70) 83 08/14/20 08:00 Mechanical Ventilator 08/14/20 08:00 100 08/14/20 08:00 100/55 08/14/20 08:00 102 08/14/20 07:00 101 20 102/53 (69) 84 08/14/20 07:00 102/53 08/14/20 06:00 105 20 90/54 (66) 78 08/14/20 06:00 90/54 08/14/20 06:00 106 90/54 08/14/20 05:00 99.0 98 20 118/62 (80) 87 08/14/20 05:00 118/62 08/14/20 04:00 Mechanical Ventilator 08/14/20 04:00 98 18 113/59 (77) 83 08/14/20 04:00 98 08/14/20 04:00 113/59 08/14/20 04:00 100 08/14/20 03:41 99 20 100 08/14/20 03:00 96 19 109/55 (73) 86 08/14/20 03:00 109/55 08/14/20 02:00 94 19 106/61 (76) 85 08/14/20 02:00 106/61 08/14/20 01:00 99/57 08/14/20 01:00 91 22 99/57 (71) 84 08/14/20 00:00 91 08/14/20 00:00 98.3 92 20 101/60 (74) 84 08/14/20 00:00 100 08/14/20 00:00 101/60 08/14/20 00:00 Mechanical Ventilator 08/13/20 23:45 93 19 100 08/13/20 23:00 91/48 08/13/20 23:00 91 18 91/48 (62) 78 08/13/20 22:00 94/46 08/13/20 22:00 88 94/46 08/13/20 22:00 89 18 94/46 (62) 75 08/13/20 21:00 86 17 91/44 (60) 65 08/13/20 21:00 91/44 08/13/20 20:00 Mechanical Ventilator 08/13/20 20:00 93/50 08/13/20 20:00 79 08/13/20 20:00 100 08/13/20 20:00 97.9 75 17 93/50 (64) 78 08/13/20 19:46 81 16 100 08/13/20 19:00 75 17 93/50 (64) 78 08/13/20 19:00 93/50 08/13/20 18:00 83 18 119/65 (83) 86 08/13/20 18:00 119/65 08/13/20 17:00 69 16 87/46 (60) 44 08/13/20 17:00 87/46 08/13/20 16:00 63 08/13/20 16:00 98.9 63 16 82/44 (57) 65 08/13/20 16:00 100 08/13/20 16:00 82/44 08/13/20 16:00 Mechanical Ventilator 08/13/20 15:15 84 16 100 08/13/20 15:00 124/74 08/13/20 15:00 84 16 124/74 (91) 85 08/13/20 14:30 86 16 127/75 (92) 86 08/13/20 14:00 132/75 08/13/20 14:00 86 17 137/76 (96) 88 08/13/20 13:01 86 128/73 08/13/20 13:00 128/73 08/13/20 13:00 85 16 128/73 (91) 86 08/13/20 12:00 98.1 89 16 133/75 (94) 86 08/13/20 12:00 133/75 08/13/20 12:00 83 08/13/20 12:00 Mechanical Ventilator 08/13/20 12:00 100 08/13/20 11:15 84 16 100 08/13/20 11:00 133/70 08/13/20 11:00 86 16 133/70 (91) 88 08/13/20 10:00 115/58 08/13/20 10:00 86 17 129/69 (89) 88 Height (Feet): 5 Height (Inches): 5.00 Weight (Pounds): 160 HEENT: other - orally intubated Respiratory/Chest: other - on ventiltor , [id number]=154% Cardiovascular: tachycardia, other - on pressor Abdomen: soft, non tender Extremities: other - generalized edema Neurologic/Psychiatric: unresponsiveness Laboratory Tests Test 08/13/20 13:25 08/13/20 15:26 08/14/20 04:25 POC Whole Blood Glucose 97 MG/DL (74-106) 96 MG/DL (74-106) White Blood Count 25.1 K/UL (4.8-10.8) *H Red Blood Count 2.96 M/UL (4.70-6.10) L Hemoglobin 9.6 G/DL (14.2-18.0) L Hematocrit 28.6 % (42.0-52.0) L Mean Corpuscular Volume 96 FL (80-99) Mean Corpuscular Hemoglobin 32.5 PG (27.0-31.0) H Mean Corpuscular Hemoglobin Concent 33.7 G/DL (32.0-36.0) Red Cell Distribution Width 12.2 % (11.6-14.8) Platelet Count 168 K/UL (150-450) Mean Platelet Volume 8.5 FL (6.5-10.1) Neutrophils (%) (Auto) % (45.0-75.0) Lymphocytes (%) (Auto) % (20.0-45.0) Monocytes (%) (Auto) % (1.0-10.0) Eosinophils (%) (Auto) % (0.0-3.0) Basophils (%) (Auto) % (0.0-2.0) Differential Total Cells Counted 100 Neutrophils % (Manual) 91 % (45-75) H Lymphocytes % (Manual) 5 % (20-45) L Monocytes % (Manual) 4 % (1-10) Eosinophils % (Manual) 0 % (0-3) Basophils % (Manual) 0 % (0-2) Band Neutrophils 0 % (0-8) Platelet Estimate Adequate Platelet Morphology Normal Hypochromasia 1+ Anisocytosis 1+ Sodium Level 135 MMOL/L (136-145) L Potassium Level 5.2 MMOL/L (3.5-5.1) H Chloride Level 99 MMOL/L (98-107) Carbon Dioxide Level 29 MMOL/L (21-32) Anion Gap 7 mmol/L (5-15) Blood Urea Nitrogen 123 mg/dL (7-18) H Creatinine 4.3 MG/DL (0.55-1.30) H Estimat Glomerular Filtration Rate 13.9 mL/min (>60) Glucose Level 138 MG/DL (74-106) H Uric Acid 8.3 MG/DL (2.6-7.2) H Calcium Level 7.8 MG/DL (8.5-10.1) L Phosphorus Level 8.0 MG/DL (2.5-4.9) H Magnesium Level 2.9 MG/DL (1.8-2.4) H Total Bilirubin 0.3 MG/DL (0.2-1.0) Aspartate Amino Transf (AST/SGOT) 345 U/L (15-37) H Alanine Aminotransferase (ALT/SGPT) 50 U/L (12-78) Alkaline Phosphatase 128 U/L (46-116) H C-Reactive Protein, Quantitative 2.5 mg/dL (0.00-0.90) H Pro-B-Type Natriuretic Peptide 33570 pg/mL (0-125) H Total Protein 4.9 G/DL (6.4-8.2) L Albumin 2.2 G/DL (3.4-5.0) L Globulin 2.7 g/dL Albumin/Globulin Ratio 0.8 (1.0-2.7) L Current Medications Medications (Trade) Dose Ordered Sig/Fabiano Route PRN Reason Start Time Stop Time Status Last Admin Dose Admin Acetaminophen (Tylenol) 650 mg Q4H PRN NG Temp >100.5 08/03/20 04:15 09/02/20 04:14 08/11/20 00:05 Acetaminophen (Tylenol) 650 mg Q4H PRN RECTAL Temp >100.5 08/01/20 20:30 08/31/20 20:29 08/13/20 01:22 Albuterol Sulfate (Proventil MDI) 2 puff Q4H PRN INH Shortness of Breath 07/29/20 22:45 10/27/20 22:44 Ceftriaxone Sodium 1 gm/ Sodium Chloride 55 ml @ 110 mls/hr Q24H IVPB 08/13/20 10:00 08/20/20 09:59 08/14/20 09:12 Cetylpyridinium Chloride (Cepacol) 1 lozg Q2H PRN [place] For Cough 07/30/20 21:00 10/28/20 20:59 08/01/20 08:47 Chlorhexidine Gluconate (Marisela-Hex 2%) 1 applic DAILY@2000 TOPIC 08/08/20 20:00 11/06/20 19:59 08/13/20 20:32 Clonidine HCl (Catapres Tab) 0.1 mg Q2H PRN ORAL SBP > 170mmHg 08/04/20 09:45 11/02/20 09:44 08/07/20 23:20 Dextrose (Dextrose 50%) 25 ml Q30M PRN IV HYPOGLYCEMIA 08/12/20 19:00 11/10/20 18:59 Dextrose (Dextrose 50%) 50 ml Q30M PRN IV HYPOGLYCEMIA 08/12/20 19:00 11/10/20 18:59 Diltiazem HCl (Cardizem Tab) 120 mg Q8HR GT 08/14/20 14:00 09/07/20 21:59 Docusate Sodium (Colace) 100 mg Q12HR GT 08/08/20 21:00 09/07/20 20:59 08/14/20 09:10 Enoxaparin Sodium (Lovenox) 30 mg DAILY SUBQ 08/02/20 10:00 10/31/20 09:59 08/14/20 09:11 Guaifenesin/ Dextromethorphan (Robitussin DM Syrup) 15 ml Q6H PRN ORAL For Cough 07/31/20 08:30 10/29/20 08:29 08/01/20 08:47 Insulin Human (Reg)/Sodium Chloride 100 ml @ 0 mls/hr Q24H IV 08/12/20 23:45 11/10/20 23:44 08/13/20 17:35 Insulin Human Regular (NovoLIN R) 5 units PRN PRN IV BS 200-299 08/12/20 19:00 11/10/20 18:59 08/13/20 05:32 Insulin Human Regular (NovoLIN R) 10 units PRN PRN IV BS=>300 08/12/20 19:00 11/10/20 18:59 08/13/20 01:38 Methylprednisolone Sodium Succinate (Solu-MEDROL) 40 mg EVERY 12 HOURS IVP 08/12/20 09:09 11/02/20 12:29 08/14/20 09:10 Miscellaneous Medication (Insulin Rate Change) 1 ea PRN PRN MISC Per rx protocol 08/12/20 19:00 11/10/20 18:59 08/13/20 05:33 Norepinephrine Bitartrate 8 mg/ Sodium Chloride 500 ml @ 0 mls/hr Q24H PRN IV For hypotension 08/12/20 21:00 08/15/20 20:59 08/12/20 21:00 Pantoprazole (Protonix) 40 mg DAILY IVP 08/06/20 10:00 09/05/20 09:59 08/14/20 09:10 Polyethylene Glycol (Miralax) 17 gm BEDTIME ORAL 08/06/20 21:00 09/05/20 20:59 08/13/20 20:32 Sodium Chloride 1,000 ml @ 75 mls/hr [id number] IV 08/13/20 13:30 09/12/20 13:29 08/14/20 03:34 Vitamin D (Vitamin D) 5,000 unit DAILY GT 08/11/20 10:15 09/10/20 10:14 08/14/20 09:10 Jose Antonio Klein MD Aug 14, 2020 09:53
--- NOTE | 2020-08-14 10:00 | NUR ---
NURSE NOTES: Dr Antonio at bedside updated re pt's status.
--- NOTE | 2020-08-14 10:24 | Cardiac Electrophysiology PN ---
Assessment/Plan Assessment/Plan 1. Bradycardia off any sinus-galen or AV-galen blocking agents. Resolved. Tolerating Cardizem. Echocardiogram EF 60% 2. Atral fib with RVR. On Cardizem 120 tid. Can't use Amiodarone for shock liver that is improving 3. Respiratory failure due to Covid PNA intubated on 100% Fio2 and PEEP 8 4. Acute renal failure with BUN/Cr 129/4.2 S/P Right IJ Kevin. 5. Shock Liver with AST and ALT >1100. Better now 6. Sepsis. White count still 26,000 on IV antibiotic 7. Comatose. S/P EEG. Awaiting final reading and Neuro eval 8. Hypotension on Levophed 2 mcg DW RN and Dr Everett Subjective Subjective In ICU intubated on 100% Fio2 and PEEP 8.Sat stil 80% range. Had atrial fib with RVR and started on Cardizem drip that was DCed EF 60%. On Cardizem 120 tid. S/P Right IJ Kevin by Radiology at bedside U Comatose with no activity on EEG. Awaiting brain eval by Neuro On NS 75 ccand insulin drip On LEvo 2 Mcg Objective Last 24 Hour Vital Signs Date Time Temp Pulse Resp B/P (MAP) Pulse Ox O2 Delivery O2 Flow Rate FiO2 08/14/20 08:00 98.6 102 20 100/55 (70) 83 08/14/20 08:00 Mechanical Ventilator 08/14/20 08:00 100 08/14/20 08:00 100/55 08/14/20 08:00 102 08/14/20 07:00 101 20 102/53 (69) 84 08/14/20 07:00 102/53 08/14/20 06:00 105 20 90/54 (66) 78 08/14/20 06:00 90/54 08/14/20 06:00 106 90/54 08/14/20 05:00 99.0 98 20 118/62 (80) 87 08/14/20 05:00 118/62 08/14/20 04:00 Mechanical Ventilator 08/14/20 04:00 98 18 113/59 (77) 83 08/14/20 04:00 98 08/14/20 04:00 113/59 08/14/20 04:00 100 08/14/20 03:41 99 20 100 08/14/20 03:00 96 19 109/55 (73) 86 08/14/20 03:00 109/55 08/14/20 02:00 94 19 106/61 (76) 85 08/14/20 02:00 106/61 08/14/20 01:00 99/57 08/14/20 01:00 91 22 99/57 (71) 84 08/14/20 00:00 91 08/14/20 00:00 98.3 92 20 101/60 (74) 84 08/14/20 00:00 100 08/14/20 00:00 101/60 08/14/20 00:00 Mechanical Ventilator 08/13/20 23:45 93 19 100 08/13/20 23:00 91/48 08/13/20 23:00 91 18 91/48 (62) 78 08/13/20 22:00 94/46 08/13/20 22:00 88 94/46 08/13/20 22:00 89 18 94/46 (62) 75 08/13/20 21:00 86 17 91/44 (60) 65 08/13/20 21:00 91/44 08/13/20 20:00 Mechanical Ventilator 08/13/20 20:00 93/50 08/13/20 20:00 79 08/13/20 20:00 100 08/13/20 20:00 97.9 75 17 93/50 (64) 78 08/13/20 19:46 81 16 100 08/13/20 19:00 75 17 93/50 (64) 78 08/13/20 19:00 93/50 08/13/20 18:00 83 18 119/65 (83) 86 08/13/20 18:00 119/65 08/13/20 17:00 69 16 87/46 (60) 44 08/13/20 17:00 87/46 08/13/20 16:00 63 08/13/20 16:00 98.9 63 16 82/44 (57) 65 08/13/20 16:00 100 08/13/20 16:00 82/44 08/13/20 16:00 Mechanical Ventilator 08/13/20 15:15 84 16 100 08/13/20 15:00 124/74 08/13/20 15:00 84 16 124/74 (91) 85 08/13/20 14:30 86 16 127/75 (92) 86 08/13/20 14:00 132/75 08/13/20 14:00 86 17 137/76 (96) 88 08/13/20 13:01 86 128/73 08/13/20 13:00 128/73 08/13/20 13:00 85 16 128/73 (91) 86 08/13/20 12:00 98.1 89 16 133/75 (94) 86 08/13/20 12:00 133/75 08/13/20 12:00 83 08/13/20 12:00 Mechanical Ventilator 08/13/20 12:00 100 08/13/20 11:15 84 16 100 08/13/20 11:00 133/70 08/13/20 11:00 86 16 133/70 (91) 88 Intake and Output 08/13/20 08/14/20 18:59 06:59 Intake Total 1737.116 ml 1673.5 ml Output Total 930 ml 320 ml Balance 807.116 ml 1353.5 ml IV Total 1632.116 ml 1053.5 ml Tube Feeding 105 ml 420 ml Other 200 ml Output Urine Total 930 ml 320 ml Laboratory Tests Test 08/13/20 13:25 08/13/20 15:26 08/14/20 04:25 POC Whole Blood Glucose 97 MG/DL (74-106) 96 MG/DL (74-106) White Blood Count 25.1 K/UL (4.8-10.8) *H Red Blood Count 2.96 M/UL (4.70-6.10) L Hemoglobin 9.6 G/DL (14.2-18.0) L Hematocrit 28.6 % (42.0-52.0) L Mean Corpuscular Volume 96 FL (80-99) Mean Corpuscular Hemoglobin 32.5 PG (27.0-31.0) H Mean Corpuscular Hemoglobin Concent 33.7 G/DL (32.0-36.0) Red Cell Distribution Width 12.2 % (11.6-14.8) Platelet Count 168 K/UL (150-450) Mean Platelet Volume 8.5 FL (6.5-10.1) Neutrophils (%) (Auto) % (45.0-75.0) Lymphocytes (%) (Auto) % (20.0-45.0) Monocytes (%) (Auto) % (1.0-10.0) Eosinophils (%) (Auto) % (0.0-3.0) Basophils (%) (Auto) % (0.0-2.0) Differential Total Cells Counted 100 Neutrophils % (Manual) 91 % (45-75) H Lymphocytes % (Manual) 5 % (20-45) L Monocytes % (Manual) 4 % (1-10) Eosinophils % (Manual) 0 % (0-3) Basophils % (Manual) 0 % (0-2) Band Neutrophils 0 % (0-8) Platelet Estimate Adequate Platelet Morphology Normal Hypochromasia 1+ Anisocytosis 1+ Sodium Level 135 MMOL/L (136-145) L Potassium Level 5.2 MMOL/L (3.5-5.1) H Chloride Level 99 MMOL/L (98-107) Carbon Dioxide Level 29 MMOL/L (21-32) Anion Gap 7 mmol/L (5-15) Blood Urea Nitrogen 123 mg/dL (7-18) H Creatinine 4.3 MG/DL (0.55-1.30) H Estimat Glomerular Filtration Rate 13.9 mL/min (>60) Glucose Level 138 MG/DL (74-106) H Uric Acid 8.3 MG/DL (2.6-7.2) H Calcium Level 7.8 MG/DL (8.5-10.1) L Phosphorus Level 8.0 MG/DL (2.5-4.9) H Magnesium Level 2.9 MG/DL (1.8-2.4) H Total Bilirubin 0.3 MG/DL (0.2-1.0) Aspartate Amino Transf (AST/SGOT) 345 U/L (15-37) H Alanine Aminotransferase (ALT/SGPT) 50 U/L (12-78) Alkaline Phosphatase 128 U/L (46-116) H C-Reactive Protein, Quantitative 2.5 mg/dL (0.00-0.90) H Pro-B-Type Natriuretic Peptide 42535 pg/mL (0-125) H Total Protein 4.9 G/DL (6.4-8.2) L Albumin 2.2 G/DL (3.4-5.0) L Globulin 2.7 g/dL Albumin/Globulin Ratio 0.8 (1.0-2.7) L Objective HEAD AND NECK: Showed no JVD. LUNGS: Clear. CARDIOVASCULAR: Shows regular S1 and S2 with no gallop. ABDOMEN: Soft. EXTREMITIES: No pitting edema. Navjot Bains MD Aug 14, 2020 10:24
--- NOTE | 2020-08-14 10:30 | NUR ---
NURSE NOTES: Dr Everett at bedside,updated re pt's condition,ordered for HD today.
--- NOTE | 2020-08-14 10:59 | Hematology/Onc Progress Note ---
Assessment/Plan Assessment/Plan Assessment and Recs # Leukocytosis with Acute respiratory failure with hypoxia/covid19++ --> wbc 27-->20-->19-->23-->28-->23->26-->24 --> ABx ctx --> steriods as well --> pulm and ID # Thrombocytopenia is likely related to covid19 --> plt 83-->118-->183->111-->107-->154 --> trend as needed --> transfuse prn --> hep and hiv neg # Anemia of chronic dsease --> hgb 10-->10.2-->10 --> anemia panel has been reviewed # Respiratory Failure --> intubated 08/01/20 --> oxygenating better --> Continue PEEP 12; now decreased to 5 # AMs --> as per neuro # Hyponatremia --> per primary MD # Hyperglycemia --> BG control # Pneumonia --> abx per ID --> on dexamethasone (07/30-) --> now on remdesivir per ID (08/01-) # Covid19 with Elevated inflammatory markers; ferritin, D-Dimer --> On Lovenox # Dvt ppx lovenox sq Appreciate consultation and krysta RN Subjective Allergies: Coded Allergies: No Known Allergies (Unverified , 07/29/20) All Systems: reviewed and negative except above Subjective 08/06 remains altered, on vent, poorly responsive, as per Sophia Polanco, to inform son 08/07 labs noted, on vent, with ogt, meds reviewed, wbc elev, on steriods 08/08 remains on vent, on dex and ogt, no bleeding, on ctx 08/10 is on vent, ogt, no bleeding, meds noted, no night sweats, krysta rn 08/11 on vent, gt, no bleeding, vital studies neg, krysta rn, picc noted 08/12 on vent, with ogt, labs reviewed, plts improved 08/13 on vent, intubated, with ogt, on fluids as well 08/14 nv, on vent, on levo as well, awaiting eeg read with neuro Objective Objective Current Medications Medications (Trade) Dose Ordered Sig/Fabiano Route PRN Reason Start Time Stop Time Status Last Admin Dose Admin Acetaminophen (Tylenol) 650 mg Q4H PRN NG Temp >100.5 08/03/20 04:15 09/02/20 04:14 08/11/20 00:05 Acetaminophen (Tylenol) 650 mg Q4H PRN RECTAL Temp >100.5 08/01/20 20:30 08/31/20 20:29 08/13/20 01:22 Albuterol Sulfate (Proventil MDI) 2 puff Q4H PRN INH Shortness of Breath 07/29/20 22:45 10/27/20 22:44 Ceftriaxone Sodium 1 gm/ Sodium Chloride 55 ml @ 110 mls/hr Q24H IVPB 08/13/20 10:00 08/20/20 09:59 08/14/20 09:12 Cetylpyridinium Chloride (Cepacol) 1 lozg Q2H PRN [place] For Cough 07/30/20 21:00 10/28/20 20:59 08/01/20 08:47 Chlorhexidine Gluconate (Marisela-Hex 2%) 1 applic DAILY@2000 TOPIC 08/08/20 20:00 11/06/20 19:59 08/13/20 20:32 Clonidine HCl (Catapres Tab) 0.1 mg Q2H PRN ORAL SBP > 170mmHg 08/04/20 09:45 11/02/20 09:44 08/07/20 23:20 Dextrose (Dextrose 50%) 25 ml Q30M PRN IV HYPOGLYCEMIA 08/12/20 19:00 11/10/20 18:59 Dextrose (Dextrose 50%) 50 ml Q30M PRN IV HYPOGLYCEMIA 08/12/20 19:00 11/10/20 18:59 Diltiazem HCl (Cardizem Tab) 120 mg Q8HR GT 08/14/20 14:00 09/07/20 21:59 Docusate Sodium (Colace) 100 mg Q12HR GT 08/08/20 21:00 09/07/20 20:59 08/14/20 09:10 Enoxaparin Sodium (Lovenox) 30 mg DAILY SUBQ 08/02/20 10:00 10/31/20 09:59 08/14/20 09:11 Guaifenesin/ Dextromethorphan (Robitussin DM Syrup) 15 ml Q6H PRN ORAL For Cough 07/31/20 08:30 10/29/20 08:29 08/01/20 08:47 Insulin Human (Reg)/Sodium Chloride 100 ml @ 0 mls/hr Q24H IV 08/12/20 23:45 11/10/20 23:44 08/13/20 17:35 Insulin Human Regular (NovoLIN R) 5 units PRN PRN IV BS 200-299 08/12/20 19:00 11/10/20 18:59 08/13/20 05:32 Insulin Human Regular (NovoLIN R) 10 units PRN PRN IV BS=>300 08/12/20 19:00 11/10/20 18:59 08/13/20 01:38 Methylprednisolone Sodium Succinate (Solu-MEDROL) 40 mg EVERY 12 HOURS IVP 08/12/20 09:09 11/02/20 12:29 08/14/20 09:10 Miscellaneous Medication (Insulin Rate Change) 1 ea PRN PRN MISC Per rx protocol 08/12/20 19:00 11/10/20 18:59 08/13/20 05:33 Norepinephrine Bitartrate 8 mg/ Sodium Chloride 500 ml @ 0 mls/hr Q24H PRN IV For hypotension 08/12/20 21:00 08/15/20 20:59 08/12/20 21:00 Pantoprazole (Protonix) 40 mg DAILY IVP 08/06/20 10:00 09/05/20 09:59 08/14/20 09:10 Polyethylene Glycol (Miralax) 17 gm BEDTIME ORAL 08/06/20 21:00 09/05/20 20:59 08/13/20 20:32 Sodium Chloride 1,000 ml @ 75 mls/hr [id number] IV 08/13/20 13:30 09/12/20 13:29 08/14/20 03:34 Vitamin D (Vitamin D) 5,000 unit DAILY GT 08/11/20 10:15 09/10/20 10:14 08/14/20 09:10 Last 24 Hour Vital Signs Date Time Temp Pulse Resp B/P (MAP) Pulse Ox O2 Delivery O2 Flow Rate FiO2 08/14/20 08:00 98.6 102 20 100/55 (70) 83 08/14/20 08:00 Mechanical Ventilator 08/14/20 08:00 100 1/21/21 08:00 100/55 08/14/20 08:00 102 08/14/20 07:26 83 20 100 08/14/20 07:00 101 20 102/53 (69) 84 08/14/20 07:00 102/53 08/14/20 06:00 105 20 90/54 (66) 78 08/14/20 06:00 90/54 08/14/20 06:00 106 90/54 08/14/20 05:00 99.0 98 20 118/62 (80) 87 08/14/20 05:00 118/62 08/14/20 04:00 Mechanical Ventilator 08/14/20 04:00 98 18 113/59 (77) 83 08/14/20 04:00 98 08/14/20 04:00 113/59 08/14/20 04:00 100 08/14/20 03:41 99 20 100 08/14/20 03:00 96 19 109/55 (73) 86 08/14/20 03:00 109/55 08/14/20 02:00 94 19 106/61 (76) 85 08/14/20 02:00 106/61 08/14/20 01:00 99/57 08/14/20 01:00 91 22 99/57 (71) 84 08/14/20 00:00 91 08/14/20 00:00 98.3 92 20 101/60 (74) 84 08/14/20 00:00 100 08/14/20 00:00 101/60 08/14/20 00:00 Mechanical Ventilator 08/13/20 23:45 93 19 100 08/13/20 23:00 91/48 08/13/20 23:00 91 18 91/48 (62) 78 08/13/20 22:00 94/46 08/13/20 22:00 88 94/46 08/13/20 22:00 89 18 94/46 (62) 75 08/13/20 21:00 86 17 91/44 (60) 65 08/13/20 21:00 91/44 08/13/20 20:00 Mechanical Ventilator 08/13/20 20:00 93/50 08/13/20 20:00 79 08/13/20 20:00 100 08/13/20 20:00 97.9 75 17 93/50 (64) 78 08/13/20 19:46 81 16 100 08/13/20 19:00 75 17 93/50 (64) 78 21 19:00 93/50 21 18:00 83 18 119/65 (83) 86 21 18:00 119/65 08/13/20 17:00 69 16 87/46 (60) 44 08/13/20 17:00 87/46 08/13/20 16:00 63 08/13/20 16:00 98.9 63 16 82/44 (57) 65 08/13/20 16:00 100 08/13/20 16:00 82/44 08/13/20 16:00 Mechanical Ventilator 08/13/20 15:15 84 16 100 08/13/20 15:00 124/74 08/13/20 15:00 84 16 124/74 (91) 85 08/13/20 14:30 86 16 127/75 (92) 86 08/13/20 14:00 132/75 08/13/20 14:00 86 17 137/76 (96) 88 08/13/20 13:01 86 128/73 08/13/20 13:00 128/73 08/13/20 13:00 85 16 128/73 (91) 86 08/13/20 12:00 98.1 89 16 133/75 (94) 86 08/13/20 12:00 133/75 08/13/20 12:00 83 08/13/20 12:00 Mechanical Ventilator 08/13/20 12:00 100 08/13/20 11:15 84 16 100 08/13/20 11:00 133/70 08/13/20 11:00 86 16 133/70 (91) 88 08/13/20 10:00 115/58 08/13/20 10:00 86 17 129/69 (89) 88 08/13/20 09:00 89 18 127/69 (88) 88 08/13/20 09:00 126/68 08/13/20 08:30 90 17 121/71 (88) 87 08/13/20 08:00 Mechanical Ventilator 08/13/20 08:00 100 08/13/20 08:00 129/67 08/13/20 08:00 86 08/13/20 08:00 98.6 91 18 123/67 (85) 88 08/13/20 07:30 93 17 121/63 (82) 85 08/13/20 07:20 87 17 100 08/13/20 07:00 124/64 08/13/20 07:00 94 16 124/64 (84) 84 08/13/20 06:30 94 19 122/64 (83) 84 08/13/20 06:00 97 16 126/65 (85) 80 08/13/20 06:00 126/65 08/13/20 05:39 96 125/67 08/13/20 05:30 96 17 125/67 (86) 83 08/13/20 05:00 133/65 08/13/20 05:00 100 17 133/65 (87) 83 08/13/20 04:37 103 18 141/68 (92) 84 08/13/20 04:30 167/84 08/13/20 04:30 108 18 167/84 (111) 83 08/13/20 04:00 Mechanical Ventilator 08/13/20 04:00 100 08/13/20 04:00 99.2 100 20 140/72 (94) 87 08/13/20 04:00 100 08/13/20 03:30 100 20 130/66 (87) 87 08/13/20 03:30 130/66 08/13/20 03:00 104 21 132/69 (90) 87 08/13/20 03:00 132/69 08/13/20 02:34 102 20 100 08/13/20 02:30 102 20 140/74 (96) 84 08/13/20 02:00 104 21 143/76 (98) 83 08/13/20 02:00 143/76 08/13/20 01:52 100.0 08/13/20 01:30 105 21 151/73 (99) 84 08/13/20 01:00 105 21 153/77 (102) 85 08/13/20 01:00 153/77 08/13/20 00:30 100.0 105 21 156/78 (104) 84 08/13/20 00:00 105 21 153/76 (101) 83 08/13/20 00:00 100 08/13/20 00:00 153/76 08/13/20 00:00 105 08/13/20 00:00 Mechanical Ventilator 08/12/20 23:45 106 21 152/73 (99) 83 08/12/20 23:30 162/81 08/12/20 23:30 107 21 162/81 (108) 82 08/12/20 23:15 109 21 151/75 (100) 80 08/12/20 23:00 107 20 148/75 (99) 78 08/12/20 23:00 148/75 08/12/20 22:59 106 20 100 08/12/20 22:45 109 21 150/82 (104) 78 08/12/20 22:30 109 20 153/73 (99) 75 08/12/20 22:15 108 21 146/71 (96) 73 08/12/20 22:00 140/68 08/12/20 22:00 109 149/68 08/12/20 22:00 108 21 140/68 (92) 71 08/12/20 21:46 114 20 147/66 (93) 69 08/12/20 21:45 115 20 153/70 (97) 69 08/12/20 21:30 99 20 65/33 (44) 73 08/12/20 21:00 119/62 08/12/20 21:00 123/60 08/12/20 21:00 104 21 123/60 (81) 72 08/12/20 20:30 104 21 130/66 (87) 71 08/12/20 20:00 Mechanical Ventilator 08/12/20 20:00 99.1 109 22 134/69 (90) 75 08/12/20 20:00 100 08/12/20 19:42 105 25 100 08/12/20 19:30 104 21 123/60 (81) 61 08/12/20 19:16 102 08/12/20 19:00 101 20 117/54 (75) 58 08/12/20 19:00 117/54 08/12/20 18:00 100 20 117/54 (75) 60 08/12/20 18:00 117/54 08/12/20 17:30 101 20 103/48 (66) 58 08/12/20 17:00 98.9 99 20 113/54 (73) 63 08/12/20 17:00 113/54 08/12/20 16:18 99 26 100 08/12/20 16:00 100 08/12/20 16:00 95 17 83/38 (53) 42 08/12/20 16:00 67/32 08/12/20 16:00 98 08/12/20 16:00 Mechanical Ventilator 08/12/20 15:00 86 16 89/41 (57) 47 08/12/20 15:00 89/41 08/12/20 14:47 83 16 100 08/12/20 14:15 81 20 103/49 (67) 51 08/12/20 14:00 97/48 08/12/20 14:00 81 20 97/48 (64) 47 08/12/20 13:45 81 20 97/43 (61) 44 08/12/20 13:30 81 15 99/48 (65) 47 08/12/20 13:30 81 16 100 08/12/20 13:24 75 17 118/56 (76) 46 08/12/20 13:15 71 16 66/35 (45) 52 08/12/20 13:13 73 89/48 08/12/20 13:00 96 19 89/48 (62) 70 08/12/20 13:00 89/48 08/12/20 12:00 99 08/12/20 12:00 100 08/12/20 12:00 Mechanical Ventilator 08/12/20 12:00 98.9 99 20 90/48 (62) 64 08/12/20 12:00 89/48 08/12/20 11:20 99 20 100 08/12/20 11:00 93/53 08/12/20 11:00 98 20 93/53 (66) 69 Intake and Output 08/13/20 08/14/20 19:00 07:00 Intake Total 1747.116 ml 1679.0 ml Output Total 970 ml 280 ml Balance 777.116 ml 1399.0 ml IV Total 1607.116 ml 1059.0 ml Tube Feeding 140 ml 420 ml Other 200 ml Output Urine Total 970 ml 280 ml # Bowel Movements 1 Labs Test 08/11/20 11:51 08/11/20 17:11 08/11/20 20:45 08/12/20 06:02 POC Whole Blood Glucose 175 MG/DL (74-106) White Blood Count 26.1 K/UL (4.8-10.8) Red Blood Count 3.13 M/UL (4.70-6.10) Hemoglobin 10.2 G/DL (14.2-18.0) Hematocrit 30.8 % (42.0-52.0) Mean Corpuscular Volume 98 FL (80-99) Mean Corpuscular Hemoglobin 32.5 PG (27.0-31.0) Mean Corpuscular Hemoglobin Concent 33.1 G/DL (32.0-36.0) Red Cell Distribution Width 12.1 % (11.6-14.8) Platelet Count 153 K/UL (150-450) Mean Platelet Volume 8.3 FL (6.5-10.1) Neutrophils (%) (Auto) % (45.0-75.0) Lymphocytes (%) (Auto) % (20.0-45.0) Monocytes (%) (Auto) % (1.0-10.0) Eosinophils (%) (Auto) % (0.0-3.0) Basophils (%) (Auto) % (0.0-2.0) Differential Total Cells Counted 100 Neutrophils % (Manual) 90 % (45-75) Lymphocytes % (Manual) 3 % (20-45) Monocytes % (Manual) 7 % (1-10) Eosinophils % (Manual) 0 % (0-3) Basophils % (Manual) 0 % (0-2) Band Neutrophils 0 % (0-8) Platelet Estimate Adequate Platelet Morphology Normal Macrocytosis 1+ Sodium Level 136 MMOL/L (136-145) Potassium Level 4.8 MMOL/L (3.5-5.1) Chloride Level 100 MMOL/L (98-107) Carbon Dioxide Level 33 MMOL/L (21-32) Anion Gap 3 mmol/L (5-15) Blood Urea Nitrogen 83 mg/dL (7-18) Creatinine 3.2 MG/DL (0.55-1.30) Estimat Glomerular Filtration Rate 19.6 mL/min (>60) Glucose Level 268 MG/DL (74-106) Calcium Level 7.6 MG/DL (8.5-10.1) Phosphorus Level 5.3 MG/DL (2.5-4.9) Magnesium Level 2.8 MG/DL (1.8-2.4) Total Bilirubin 0.4 MG/DL (0.2-1.0) Gamma Glutamyl Transpeptidase 160 U/L (5-85) Aspartate Amino Transf (AST/SGOT) 335 U/L (15-37) Alanine Aminotransferase (ALT/SGPT) 81 U/L (12-78) Alkaline Phosphatase 138 U/L (46-116) C-Reactive Protein, Quantitative 5.1 mg/dL (0.00-0.90) Pro-B-Type Natriuretic Peptide 5853 pg/mL (0-125) Total Protein 5.0 G/DL (6.4-8.2) Albumin 1.7 G/DL (3.4-5.0) Globulin 3.3 g/dL Albumin/Globulin Ratio 0.5 (1.0-2.7) Test 08/12/20 14:50 08/12/20 20:05 08/12/20 21:33 08/13/20 04:35 Arterial Blood pH 7.202 (7.350-7.450) Arterial Blood Partial Pressure CO2 78.4 mmHg (35.0-45.0) Arterial Blood Partial Pressure O2 27.7 mmHg (75.0-100.0) Arterial Blood HCO3 30.1 mmol/L (22.0-26.0) Arterial Blood Oxygen Saturation 51.4 % (95-100) Arterial Blood Base Excess 0.3 (-2-2) Mehdi Test Positive Sodium Level 131 MMOL/L (136-145) 133 MMOL/L (136-145) Potassium Level 5.3 MMOL/L (3.5-5.1) 4.6 MMOL/L (3.5-5.1) Chloride Level 94 MMOL/L (98-107) 97 MMOL/L (98-107) Carbon Dioxide Level 29 MMOL/L (21-32) 31 MMOL/L (21-32) Anion Gap 8 mmol/L (5-15) 5 mmol/L (5-15) Blood Urea Nitrogen 108 mg/dL (7-18) 104 mg/dL (7-18) Creatinine 4.1 MG/DL (0.55-1.30) 4.0 MG/DL (0.55-1.30) Estimat Glomerular Filtration Rate 14.7 mL/min (>60) 15.1 mL/min (>60) Glucose Level 460 MG/DL (74-106) 213 MG/DL (74-106) Calcium Level 8.0 MG/DL (8.5-10.1) 7.9 MG/DL (8.5-10.1) POC Whole Blood Glucose 432 MG/DL (74-106) White Blood Count 24.0 K/UL (4.8-10.8) Red Blood Count 3.13 M/UL (4.70-6.10) Hemoglobin 10.2 G/DL (14.2-18.0) Hematocrit 29.8 % (42.0-52.0) Mean Corpuscular Volume 95 FL (80-99) Mean Corpuscular Hemoglobin 32.5 PG (27.0-31.0) Mean Corpuscular Hemoglobin Concent 34.1 G/DL (32.0-36.0) Red Cell Distribution Width 11.5 % (11.6-14.8) Platelet Count 153 K/UL (150-450) Mean Platelet Volume 8.0 FL (6.5-10.1) Neutrophils (%) (Auto) % (45.0-75.0) Lymphocytes (%) (Auto) % (20.0-45.0) Monocytes (%) (Auto) % (1.0-10.0) Eosinophils (%) (Auto) % (0.0-3.0) Basophils (%) (Auto) % (0.0-2.0) Differential Total Cells Counted 100 Neutrophils % (Manual) 89 % (45-75) Lymphocytes % (Manual) 3 % (20-45) Monocytes % (Manual) 4 % (1-10) Eosinophils % (Manual) 1 % (0-3) Basophils % (Manual) 0 % (0-2) Myelocytes % 3 % (0-0) Band Neutrophils 0 % (0-8) Platelet Estimate Adequate Platelet Morphology Normal Hypochromasia 1+ Phosphorus Level 5.9 MG/DL (2.5-4.9) Magnesium Level 2.8 MG/DL (1.8-2.4) Total Bilirubin 0.4 MG/DL (0.2-1.0) Aspartate Amino Transf (AST/SGOT) 370 U/L (15-37) Alanine Aminotransferase (ALT/SGPT) 62 U/L (12-78) Alkaline Phosphatase 145 U/L (46-116) Total Protein 5.2 G/DL (6.4-8.2) Albumin 2.1 G/DL (3.4-5.0) Globulin 3.1 g/dL Albumin/Globulin Ratio 0.7 (1.0-2.7) Test 08/13/20 13:25 08/13/20 15:26 08/14/20 04:25 POC Whole Blood Glucose 97 MG/DL (74-106) 96 MG/DL (74-106) White Blood Count 25.1 K/UL (4.8-10.8) Red Blood Count 2.96 M/UL (4.70-6.10) Hemoglobin 9.6 G/DL (14.2-18.0) Hematocrit 28.6 % (42.0-52.0) Mean Corpuscular Volume 96 FL (80-99) Mean Corpuscular Hemoglobin 32.5 PG (27.0-31.0) Mean Corpuscular Hemoglobin Concent 33.7 G/DL (32.0-36.0) Red Cell Distribution Width 12.2 % (11.6-14.8) Platelet Count 168 K/UL (150-450) Mean Platelet Volume 8.5 FL (6.5-10.1) Neutrophils (%) (Auto) % (45.0-75.0) Lymphocytes (%) (Auto) % (20.0-45.0) Monocytes (%) (Auto) % (1.0-10.0) Eosinophils (%) (Auto) % (0.0-3.0) Basophils (%) (Auto) % (0.0-2.0) Differential Total Cells Counted 100 Neutrophils % (Manual) 91 % (45-75) Lymphocytes % (Manual) 5 % (20-45) Monocytes % (Manual) 4 % (1-10) Eosinophils % (Manual) 0 % (0-3) Basophils % (Manual) 0 % (0-2) Band Neutrophils 0 % (0-8) Platelet Estimate Adequate Platelet Morphology Normal Hypochromasia 1+ Anisocytosis 1+ Sodium Level 135 MMOL/L (136-145) Potassium Level 5.2 MMOL/L (3.5-5.1) Chloride Level 99 MMOL/L (98-107) Carbon Dioxide Level 29 MMOL/L (21-32) Anion Gap 7 mmol/L (5-15) Blood Urea Nitrogen 123 mg/dL (7-18) Creatinine 4.3 MG/DL (0.55-1.30) Estimat Glomerular Filtration Rate 13.9 mL/min (>60) Glucose Level 138 MG/DL (74-106) Uric Acid 8.3 MG/DL (2.6-7.2) Calcium Level 7.8 MG/DL (8.5-10.1) Phosphorus Level 8.0 MG/DL (2.5-4.9) Magnesium Level 2.9 MG/DL (1.8-2.4) Total Bilirubin 0.3 MG/DL (0.2-1.0) Aspartate Amino Transf (AST/SGOT) 345 U/L (15-37) Alanine Aminotransferase (ALT/SGPT) 50 U/L (12-78) Alkaline Phosphatase 128 U/L (46-116) C-Reactive Protein, Quantitative 2.5 mg/dL (0.00-0.90) Pro-B-Type Natriuretic Peptide 55585 pg/mL (0-125) Total Protein 4.9 G/DL (6.4-8.2) Albumin 2.2 G/DL (3.4-5.0) Globulin 2.7 g/dL Albumin/Globulin Ratio 0.8 (1.0-2.7) Height (Feet): 5 Height (Inches): 5.00 Weight (Pounds): 160 Objective Vital Signs Vitals: reviewed, abnormal General Appearance: well appearing, mild distress HEENT: hearing grossly normal, moist mucus membranes Neck: full range of motion, supple Respiratory: ++vent Cardiovascular: normal peripheral pulses, regular rate, rhythm, no murmur Gastrointestinal: non tender, soft, non-distended, no guarding Neurologic: alert, oriented x3, no focal defects Skin: normal color, warm/dry Robin Ornelas MD Aug 14, 2020 10:59
--- NOTE | 2020-08-14 11:39 | Pulmonology Progress Note ---
Subjective ROS Limited/Unobtainable: Yes Interval Events: Intubated 08/01/20 Constitutional: Reports: fever, other - Wq=958.4 in am HEENT: Repors: no symptoms Respiratory: Reports: no symptoms Cardiovascular: Reports: no symptoms Gastrointestinal/Abdominal: Reports: no symptoms Musculoskeletal: Denies: pain Allergies: Coded Allergies: No Known Allergies (Unverified , 07/29/20) All Systems: reviewed and negative except above Objective Last 24 Hour Vital Signs Date Time Temp Pulse Resp B/P (MAP) Pulse Ox O2 Delivery O2 Flow Rate FiO2 08/14/20 11:00 121/70 08/14/20 11:00 103 20 121/70 (87) 80 08/14/20 10:00 101 20 115/58 (77) 86 08/14/20 10:00 115/58 08/14/20 09:00 102/55 08/14/20 09:00 103 21 102/55 (71) 86 08/14/20 08:00 98.6 102 20 100/55 (70) 83 08/14/20 08:00 Mechanical Ventilator 08/14/20 08:00 100 08/14/20 08:00 100/55 08/14/20 08:00 102 08/14/20 07:26 83 20 100 08/14/20 07:00 101 20 102/53 (69) 84 08/14/20 07:00 102/53 08/14/20 06:00 105 20 90/54 (66) 78 08/14/20 06:00 90/54 08/14/20 06:00 106 90/54 08/14/20 05:00 99.0 98 20 118/62 (80) 87 08/14/20 05:00 118/62 08/14/20 04:00 Mechanical Ventilator 08/14/20 04:00 98 18 113/59 (77) 83 08/14/20 04:00 98 08/14/20 04:00 113/59 08/14/20 04:00 100 08/14/20 03:41 99 20 100 08/14/20 03:00 96 19 109/55 (73) 86 08/14/20 03:00 109/55 08/14/20 02:00 94 19 106/61 (76) 85 08/14/20 02:00 106/61 08/14/20 01:00 99/57 08/14/20 01:00 91 22 99/57 (71) 84 08/14/20 00:00 91 08/14/20 00:00 98.3 92 20 101/60 (74) 84 08/14/20 00:00 100 08/14/20 00:00 101/60 08/14/20 00:00 Mechanical Ventilator 08/13/20 23:45 93 19 100 08/13/20 23:00 91/48 08/13/20 23:00 91 18 91/48 (62) 78 08/13/20 22:00 94/46 08/13/20 22:00 88 94/46 08/13/20 22:00 89 18 94/46 (62) 75 08/13/20 21:00 86 17 91/44 (60) 65 08/13/20 21:00 91/44 08/13/20 20:00 Mechanical Ventilator 08/13/20 20:00 93/50 08/13/20 20:00 79 08/13/20 20:00 100 08/13/20 20:00 97.9 75 17 93/50 (64) 78 08/13/20 19:46 81 16 100 08/13/20 19:00 75 17 93/50 (64) 78 08/13/20 19:00 93/50 08/13/20 18:00 83 18 119/65 (83) 86 08/13/20 18:00 119/65 08/13/20 17:00 69 16 87/46 (60) 44 08/13/20 17:00 87/46 08/13/20 16:00 63 08/13/20 16:00 98.9 63 16 82/44 (57) 65 08/13/20 16:00 100 08/13/20 16:00 82/44 08/13/20 16:00 Mechanical Ventilator 08/13/20 15:15 84 16 100 08/13/20 15:00 124/74 08/13/20 15:00 84 16 124/74 (91) 85 08/13/20 14:30 86 16 127/75 (92) 86 08/13/20 14:00 132/75 08/13/20 14:00 86 17 137/76 (96) 88 08/13/20 13:01 86 128/73 08/13/20 13:00 128/73 08/13/20 13:00 85 16 128/73 (91) 86 08/13/20 12:00 98.1 89 16 133/75 (94) 86 08/13/20 12:00 133/75 08/13/20 12:00 83 08/13/20 12:00 Mechanical Ventilator 08/13/20 12:00 100 Intake and Output 08/13/20 08/14/20 19:00 07:00 Intake Total 1747.116 ml 1679.0 ml Output Total 970 ml 280 ml Balance 777.116 ml 1399.0 ml IV Total 1607.116 ml 1059.0 ml Tube Feeding 140 ml 420 ml Other 200 ml Output Urine Total 970 ml 280 ml # Bowel Movements 1 General Appearance: no acute distress HEENT: normocephalic, atraumatic Respiratory: lungs clear Cardiovascular: normal rate, regular rhythm Abdomen: soft, non tender Laboratory Tests 08/13/20 13:25: POC Whole Blood Glucose 97 08/13/20 15:26: POC Whole Blood Glucose 96 08/14/20 04:25: White Blood Count 25.1*H, Red Blood Count 2.96L, Hemoglobin 9.6L, Hematocrit 28.6L, Mean Corpuscular Volume 96, Mean Corpuscular Hemoglobin 32.5H, Mean C orpuscular Hemoglobin Concent 33.7, Red Cell Distribution Width 12.2, Platelet Count 168, Mean Platelet Volume 8.5, Neutrophils (%) (Auto) , Lymphocytes (%) (Auto) , Monocytes (%) (Auto) , Eosinophils (%) (Auto) , Basophils (%) (Auto) , Differential Total Cells Counted 100, Neutrophils % (Manual) 91H, Lymphocytes % (Manual) 5L, Monocytes % (Manual) 4, Eosinophils % (Manual) 0, Basophils % (Manual) 0, Band Neutrophils 0, Platelet Estimate Adequate, Platelet Morphology Normal, Hypochromasia 1+, Anisocytosis 1+, Sodium Level 135L, Potassium Level 5.2H, Chloride Level 99, Carbon Dioxide Level 29, Anion Gap 7, Blood Urea Nitrogen 123H, Creatinine 4.3H, Estimat Glomerular Filtration Rate 13.9, Glucose Level 138H, Uric Acid 8.3H, Calcium Level 7.8L, Phosphorus Level 8.0H, Magnesium Level 2.9H, Total Bilirubin 0.3, Aspartate Amino Transf (AST/SGOT) 345H, Alanine Aminotransferase (ALT/SGPT) 50, Alkaline Phosphatase 128H, C-Reactive Protein, Quantitative 2.5H, Pro-B-Type Natriuretic Peptide 55604C, Total Protein 4.9L, Albumin 2.2L, Globulin 2.7, Albumin/Globulin Ratio 0.8L Current Medications Medications (Trade) Dose Ordered Sig/Fabiano Route PRN Reason Start Time Stop Time Status Last Admin Dose Admin Acetaminophen (Tylenol) 650 mg Q4H PRN NG Temp >100.5 08/03/20 04:15 09/02/20 04:14 08/11/20 00:05 Acetaminophen (Tylenol) 650 mg Q4H PRN RECTAL Temp >100.5 08/01/20 20:30 08/31/20 20:29 08/13/20 01:22 Albuterol Sulfate (Proventil MDI) 2 puff Q4H PRN INH Shortness of Breath 07/29/20 22:45 10/27/20 22:44 Ceftriaxone Sodium 1 gm/ Sodium Chloride 55 ml @ 110 mls/hr Q24H IVPB 08/13/20 10:00 08/20/20 09:59 08/14/20 09:12 Cetylpyridinium Chloride (Cepacol) 1 lozg Q2H PRN [place] For Cough 07/30/20 21:00 10/28/20 20:59 08/01/20 08:47 Chlorhexidine Gluconate (Marisela-Hex 2%) 1 applic DAILY@2000 TOPIC 08/08/20 20:00 11/06/20 19:59 08/13/20 20:32 Clonidine HCl (Catapres Tab) 0.1 mg Q2H PRN ORAL SBP > 170mmHg 08/04/20 09:45 11/02/20 09:44 08/07/20 23:20 Dextrose (Dextrose 50%) 25 ml Q30M PRN IV HYPOGLYCEMIA 08/12/20 19:00 11/10/20 18:59 Dextrose (Dextrose 50%) 50 ml Q30M PRN IV HYPOGLYCEMIA 08/12/20 19:00 11/10/20 18:59 Diltiazem HCl (Cardizem Tab) 120 mg Q8HR GT 08/14/20 14:00 09/07/20 21:59 Docusate Sodium (Colace) 100 mg Q12HR GT 08/08/20 21:00 09/07/20 20:59 08/14/20 09:10 Enoxaparin Sodium (Lovenox) 30 mg DAILY SUBQ 08/02/20 10:00 10/31/20 09:59 08/14/20 09:11 Guaifenesin/ Dextromethorphan (Robitussin DM Syrup) 15 ml Q6H PRN ORAL For Cough 07/31/20 08:30 10/29/20 08:29 08/01/20 08:47 Insulin Human (Reg)/Sodium Chloride 100 ml @ 0 mls/hr Q24H IV 08/12/20 23:45 11/10/20 23:44 08/13/20 17:35 Insulin Human Regular (NovoLIN R) 5 units PRN PRN IV BS 200-299 08/12/20 19:00 11/10/20 18:59 08/13/20 05:32 Insulin Human Regular (NovoLIN R) 10 units PRN PRN IV BS=>300 08/12/20 19:00 11/10/20 18:59 08/13/20 01:38 Methylprednisolone Sodium Succinate (Solu-MEDROL) 40 mg EVERY 12 HOURS IVP 08/12/20 09:09 11/02/20 12:29 08/14/20 09:10 Miscellaneous Medication (Insulin Rate Change) 1 ea PRN PRN MISC Per rx protocol 08/12/20 19:00 11/10/20 18:59 08/13/20 05:33 Norepinephrine Bitartrate 8 mg/ Sodium Chloride 500 ml @ 0 mls/hr Q24H PRN IV For hypotension 08/12/20 21:00 08/15/20 20:59 08/12/20 21:00 Pantoprazole (Protonix) 40 mg DAILY IVP 08/06/20 10:00 09/05/20 09:59 08/14/20 09:10 Polyethylene Glycol (Miralax) 17 gm BEDTIME ORAL 08/06/20 21:00 09/05/20 20:59 08/13/20 20:32 Sodium Chloride 1,000 ml @ 75 mls/hr [id number] IV 08/13/20 13:30 09/12/20 13:29 08/14/20 03:34 Vitamin D (Vitamin D) 5,000 unit DAILY GT 08/11/20 10:15 09/10/20 10:14 08/14/20 09:10 Assessment/Plan Assessment/Plan 1. Respiratory Failure - intubated 08/01/20 - oxygenating poorly; SaO2 85% - Continue PEEP 8 - continue 100% Fio2; 2. Hyponatremia - per primary MD 3. Hyperglycemia - BG control 5. Pneumonia - abx per ID - on dexamethasone (07/30-) - now on remdesivir per ID (08/01-) 6. COVID-19 rapid negative - COVID-19 PCR positive 7. Elevated inflammatory markers; ferritin, D-Dimer - likely secondary to #5 - On Lovenox Discussed with son Remains totally unresponsive; off all sedation Noted neurology eval Has worsening of renal function Nephrology following Continue HD Grave prognosis Milton Antonio MD Aug 14, 2020 11:39
--- NOTE | 2020-08-14 11:44 | General Progress Note ---
Subjective ROS Limited/Unobtainable: No Allergies: Coded Allergies: No Known Allergies (Unverified , 07/29/20) Objective Last 24 Hour Vital Signs Date Time Temp Pulse Resp B/P (MAP) Pulse Ox O2 Delivery O2 Flow Rate FiO2 08/14/20 11:00 121/70 08/14/20 11:00 103 20 121/70 (87) 80 08/14/20 10:00 101 20 115/58 (77) 86 08/14/20 10:00 115/58 08/14/20 09:00 102/55 08/14/20 09:00 103 21 102/55 (71) 86 08/14/20 08:00 98.6 102 20 100/55 (70) 83 08/14/20 08:00 Mechanical Ventilator 08/14/20 08:00 100 08/14/20 08:00 100/55 08/14/20 08:00 102 08/14/20 07:26 83 20 100 08/14/20 07:00 101 20 102/53 (69) 84 08/14/20 07:00 102/53 08/14/20 06:00 105 20 90/54 (66) 78 08/14/20 06:00 90/54 08/14/20 06:00 106 90/54 08/14/20 05:00 99.0 98 20 118/62 (80) 87 08/14/20 05:00 118/62 08/14/20 04:00 Mechanical Ventilator 08/14/20 04:00 98 18 113/59 (77) 83 08/14/20 04:00 98 08/14/20 04:00 113/59 08/14/20 04:00 100 08/14/20 03:41 99 20 100 08/14/20 03:00 96 19 109/55 (73) 86 08/14/20 03:00 109/55 08/14/20 02:00 94 19 106/61 (76) 85 08/14/20 02:00 106/61 08/14/20 01:00 99/57 08/14/20 01:00 91 22 99/57 (71) 84 08/14/20 00:00 91 08/14/20 00:00 98.3 92 20 101/60 (74) 84 08/14/20 00:00 100 1/21/21 00:00 101/60 08/14/20 00:00 Mechanical Ventilator 08/13/20 23:45 93 19 100 08/13/20 23:00 91/48 08/13/20 23:00 91 18 91/48 (62) 78 08/13/20 22:00 94/46 08/13/20 22:00 88 94/46 08/13/20 22:00 89 18 94/46 (62) 75 08/13/20 21:00 86 17 91/44 (60) 65 08/13/20 21:00 91/44 08/13/20 20:00 Mechanical Ventilator 08/13/20 20:00 93/50 08/13/20 20:00 79 08/13/20 20:00 100 08/13/20 20:00 97.9 75 17 93/50 (64) 78 08/13/20 19:46 81 16 100 08/13/20 19:00 75 17 93/50 (64) 78 08/13/20 19:00 93/50 08/13/20 18:00 83 18 119/65 (83) 86 08/13/20 18:00 119/65 08/13/20 17:00 69 16 87/46 (60) 44 08/13/20 17:00 87/46 08/13/20 16:00 63 08/13/20 16:00 98.9 63 16 82/44 (57) 65 08/13/20 16:00 100 08/13/20 16:00 82/44 08/13/20 16:00 Mechanical Ventilator 08/13/20 15:15 84 16 100 08/13/20 15:00 124/74 08/13/20 15:00 84 16 124/74 (91) 85 08/13/20 14:30 86 16 127/75 (92) 86 08/13/20 14:00 132/75 08/13/20 14:00 86 17 137/76 (96) 88 08/13/20 13:01 86 128/73 08/13/20 13:00 128/73 08/13/20 13:00 85 16 128/73 (91) 86 08/13/20 12:00 98.1 89 16 133/75 (94) 86 08/13/20 12:00 133/75 08/13/20 12:00 83 08/13/20 12:00 Mechanical Ventilator 08/13/20 12:00 100 Intake and Output 08/13/20 08/14/20 19:00 07:00 Intake Total 1747.116 ml 1679.0 ml Output Total 970 ml 280 ml Balance 777.116 ml 1399.0 ml IV Total 1607.116 ml 1059.0 ml Tube Feeding 140 ml 420 ml Other 200 ml Output Urine Total 970 ml 280 ml # Bowel Movements 1 Laboratory Tests 08/13/20 13:25: POC Whole Blood Glucose 97 08/13/20 15:26: POC Whole Blood Glucose 96 08/14/20 04:25: White Blood Count 25.1*H, Red Blood Count 2.96L, Hemoglobin 9.6L, Hematocrit 28.6L, Mean Corpuscular Volume 96, Mean Corpuscular Hemoglobin 32.5H, Mean Corpuscular Hemoglobin Concent 33.7, Red Cell Distribution Width 12.2, Platelet Count 168, Mean Platelet Volume 8.5, Neutrophils (%) (Auto) , Lymphocytes (%) (Auto) , Monocytes (%) (Auto) , Eosinophils (%) (Auto) , Basophils (%) (Auto) , Differential Total Cells Counted 100, Neutrophils % (Manual) 91H, Lymphocytes % (Manual) 5L, Monocytes % (Manual) 4, Eosinophils % (Manual) 0, Basophils % (Manual) 0, Band Neutrophils 0, Platelet Estimate Adequate, Platelet Morphology Normal, Hypochromasia 1+, Anisocytosis 1+, Sodium Level 135L, Potassium Level 5.2H, Chloride Level 99, Carbon Dioxide Level 29, Anion Gap 7, Blood Urea Nitrogen 123H, Creatinine 4.3H, Estimat Glomerular Filtration Rate 13.9, Glucose Level 138H, Uric Acid 8.3H, Calcium Level 7.8L, Phosphorus Level 8.0H, Magnesium Level 2.9H, Total Bilirubin 0.3, Aspartate Amino Transf (AST/SGOT) 345H, Alanine Aminotransferase (ALT/SGPT) 50, Alkaline Phosphatase 128H, C-Reactive Protein, Quantitative 2.5H, Pro-B-Type Natriuretic Peptide 49266Z, Total Protein 4.9L, Albumin 2.2L, Globulin 2.7, Albumin/Globulin Ratio 0.8L Height (Feet): 5 Height (Inches): 5.00 Weight (Pounds): 160 General Appearance: no apparent distress EENT: normal ENT inspection Neck: supple Cardiovascular: normal rate Respiratory/Chest: decreased breath sounds Abdomen: normal bowel sounds, non tender, soft Assessment/Plan Problem List: (1) Hypoxia ICD Codes: R09.02 - Hypoxemia SNOMED: 635729107 (2) Bilateral pneumonia ICD Codes: J18.9 - Pneumonia, unspecified organism SNOMED: 437317923, 119995246 (3) Acute respiratory failure with hypoxia ICD Codes: J96.01 - Acute respiratory failure with hypoxia SNOMED: 42694072, 730062189 (4) Bradycardia ICD Codes: R00.1 - Bradycardia, unspecified SNOMED: 36159242 (5) Malnutrition ICD Codes: E46 - Unspecified protein-calorie malnutrition SNOMED: 91491225 (6) Shock liver ICD Codes: K72.00 - Acute and subacute hepatic failure without coma SNOMED: 338260855 (7) ERIKA (acute kidney injury) ICD Codes: N17.9 - Acute kidney failure, unspecified SNOMED: 7032160, 66513581 Status: unchanged Assessment/Plan: NGTF covid care fu labs abx per ID shock liver>>>fu LFTS>>>improving bowel regimen poor prognosis will fu Enoch Varner MD Aug 14, 2020 11:44
--- NOTE | 2020-08-14 12:08 | Nephrology Progress Note ---
Assessment/Plan Problem List: (1) ERIKA (acute kidney injury) (2) Shock liver (3) Acute respiratory failure with hypoxia (4) Bilateral pneumonia Assessment Acute renal failure. Most likely due to hypotensive and shock from 8 PM last night to 5 AM this morning. Hyperkalemia. Acute hypoxic respiratory failure. Pneumonia with COVID-19. Elevated transaminase, most likely shock liver. Plan August 14: Labs reviewed. Will order dialysis today. We waiting for the formal EEG results regarding brain activity. Continue per consultants. August 13: Labs reviewed. Last dialyzed August 11. Last evening the patient was hypotensive with poor oxygenation. Patient responded to albumin and fluid challenge. IV Lasix given. Today on 2 pressors. Remains hemodynamically unstable. Discussed with RN. Still do not have the EEG results. Continue current care. Unstable for dialysis today. Will check lab tomorrow. August 12: Labs reviewed. Patient dialyzed yesterday. Discussed with RN. Patient had EEG done last night which appears to have no brain activity. Waiting for neuro advice regarding brain activity. Will discontinue dialysis plans if the patient considered brain . August 11: Lab reviewed. Renal parameters worsening. Due for insertion of dialysis catheter today. Patient's head CT scan was not done due to change in condition. Vitamin D supplements started for low vitamin D level. August 10: Lab reviewed. Renal parameters worsening. Patient unresponsive. Remains on ventilator. Remains full code. Due for CT scan of the head. Will plan for dialysis catheter and dialysis should the head CT results are desirable. Discussed with CARLOS Laurent. August 09: Labs reviewed. Potassium elevated. Kayexalate given. Serum sodium gradually improving. Continue D5W. Continue per consultants. Continue monitor renal parameters and electrolytes. August 08: Labs reviewed. Renal parameters stable. Abnormal electrolytes noted. Continue current management. Albumin bolus given. Continue to monitor current state August 07: Labs reviewed. Neutra-Phos via NG tube given. Serum sodium and serum potassium lowering. Medication list reviewed. Levemir and Cardizem doses were adjusted by consultants. Continue to monitor renal parameters. August 06: Labs reviewed. Serum potassium 5.2. Serum sodium 152. Will change IV to D5W. Will start with the Levemir 10 mg nightly. August 05: Labs reviewed. Renal parameters improving. LFTs gradually improving. IV changed to half-normal saline. Continue to monitor blood sugar. Continue to monitor renal parameters. Patient full code. Cardizem dose increased. August 04: Renal parameters improving. LFTs remain elevated. Hemodynamically stable. Continue to monitor renal parameters. Continue per consultants. Discussed with CARLOS Greene. August 03: Patient intubated on ventilator. Renal parameters worsening. LFTs elevated. Patient is deteriorating. Will consider dialysis treatment if no reversal of kidney failure. Discussed with CARLOS Alexis. Previously: Albumin bolus Increase IV fluid Kayexalate for high potassium Monitor renal parameters Subjective ROS Limited/Unobtainable: Yes Objective Objective Last 24 Hour Vital Signs Date Time Temp Pulse Resp B/P (MAP) Pulse Ox O2 Delivery O2 Flow Rate FiO2 08/14/20 11:00 121/70 08/14/20 11:00 103 20 121/70 (87) 80 08/14/20 10:00 101 20 115/58 (77) 86 08/14/20 10:00 115/58 08/14/20 09:00 102/55 08/14/20 09:00 103 21 102/55 (71) 86 08/14/20 08:00 98.6 102 20 100/55 (70) 83 08/14/20 08:00 Mechanical Ventilator 08/14/20 08:00 100 08/14/20 08:00 100/55 08/14/20 08:00 102 08/14/20 07:26 83 20 100 08/14/20 07:00 101 20 102/53 (69) 84 08/14/20 07:00 102/53 08/14/20 06:00 105 20 90/54 (66) 78 08/14/20 06:00 90/54 08/14/20 06:00 106 90/54 08/14/20 05:00 99.0 98 20 118/62 (80) 87 08/14/20 05:00 118/62 08/14/20 04:00 Mechanical Ventilator 08/14/20 04:00 98 18 113/59 (77) 83 08/14/20 04:00 98 08/14/20 04:00 113/59 08/14/20 04:00 100 08/14/20 03:41 99 20 100 08/14/20 03:00 96 19 109/55 (73) 86 08/14/20 03:00 109/55 08/14/20 02:00 94 19 106/61 (76) 85 08/14/20 02:00 106/61 08/14/20 01:00 99/57 08/14/20 01:00 91 22 99/57 (71) 84 08/14/20 00:00 91 08/14/20 00:00 98.3 92 20 101/60 (74) 84 08/14/20 00:00 100 08/14/20 00:00 101/60 08/14/20 00:00 Mechanical Ventilator 08/13/20 23:45 93 19 100 08/13/20 23:00 91/48 08/13/20 23:00 91 18 91/48 (62) 78 08/13/20 22:00 94/46 08/13/20 22:00 88 94/46 08/13/20 22:00 89 18 94/46 (62) 75 08/13/20 21:00 86 17 91/44 (60) 65 08/13/20 21:00 91/44 08/13/20 20:00 Mechanical Ventilator 08/13/20 20:00 93/50 08/13/20 20:00 79 08/13/20 20:00 100 08/13/20 20:00 97.9 75 17 93/50 (64) 78 08/13/20 19:46 81 16 100 08/13/20 19:00 75 17 93/50 (64) 78 08/13/20 19:00 93/50 08/13/20 18:00 83 18 119/65 (83) 86 08/13/20 18:00 119/65 08/13/20 17:00 69 16 87/46 (60) 44 08/13/20 17:00 87/46 08/13/20 16:00 63 08/13/20 16:00 98.9 63 16 82/44 (57) 65 08/13/20 16:00 100 08/13/20 16:00 82/44 08/13/20 16:00 Mechanical Ventilator 08/13/20 15:15 84 16 100 08/13/20 15:00 124/74 08/13/20 15:00 84 16 124/74 (91) 85 08/13/20 14:30 86 16 127/75 (92) 86 08/13/20 14:00 132/75 08/13/20 14:00 86 17 137/76 (96) 88 08/13/20 13:01 86 128/73 08/13/20 13:00 128/73 08/13/20 13:00 85 16 128/73 (91) 86 Intake and Output 08/13/20 08/14/20 19:00 07:00 Intake Total 1747.116 ml 1679.0 ml Output Total 970 ml 280 ml Balance 777.116 ml 1399.0 ml IV Total 1607.116 ml 1059.0 ml Tube Feeding 140 ml 420 ml Other 200 ml Output Urine Total 970 ml 280 ml # Bowel Movements 1 Current Medications Medications (Trade) Dose Ordered Sig/Fabiano Route PRN Reason Start Time Stop Time Status Last Admin Dose Admin Acetaminophen (Tylenol) 650 mg Q4H PRN NG Temp >100.5 08/03/20 04:15 09/02/20 04:14 08/11/20 00:05 Acetaminophen (Tylenol) 650 mg Q4H PRN RECTAL Temp >100.5 08/01/20 20:30 08/31/20 20:29 08/13/20 01:22 Albuterol Sulfate (Proventil MDI) 2 puff Q4H PRN INH Shortness of Breath 07/29/20 22:45 10/27/20 22:44 Ceftriaxone Sodium 1 gm/ Sodium Chloride 55 ml @ 110 mls/hr Q24H IVPB 08/13/20 10:00 08/20/20 09:59 08/14/20 09:12 Cetylpyridinium Chloride (Cepacol) 1 lozg Q2H PRN [place] For Cough 07/30/20 21:00 10/28/20 20:59 08/01/20 08:47 Chlorhexidine Gluconate (Marisela-Hex 2%) 1 applic DAILY@2000 TOPIC 08/08/20 20:00 11/06/20 19:59 08/13/20 20:32 Clonidine HCl (Catapres Tab) 0.1 mg Q2H PRN ORAL SBP > 170mmHg 08/04/20 09:45 11/02/20 09:44 08/07/20 23:20 Dextrose (Dextrose 50%) 25 ml Q30M PRN IV HYPOGLYCEMIA 08/12/20 19:00 11/10/20 18:59 Dextrose (Dextrose 50%) 50 ml Q30M PRN IV HYPOGLYCEMIA 08/12/20 19:00 11/10/20 18:59 Diltiazem HCl (Cardizem Tab) 120 mg Q8HR GT 08/14/20 14:00 09/07/20 21:59 Docusate Sodium (Colace) 100 mg Q12HR GT 08/08/20 21:00 09/07/20 20:59 08/14/20 09:10 Enoxaparin Sodium (Lovenox) 30 mg DAILY SUBQ 08/02/20 10:00 10/31/20 09:59 08/14/20 09:11 Guaifenesin/ Dextromethorphan (Robitussin DM Syrup) 15 ml Q6H PRN ORAL For Cough 07/31/20 08:30 10/29/20 08:29 08/01/20 08:47 Insulin Human (Reg)/Sodium Chloride 100 ml @ 0 mls/hr Q24H IV 08/12/20 23:45 11/10/20 23:44 08/13/20 17:35 Insulin Human Regular (NovoLIN R) 5 units PRN PRN IV BS 200-299 08/12/20 19:00 11/10/20 18:59 08/13/20 05:32 Insulin Human Regular (NovoLIN R) 10 units PRN PRN IV BS=>300 08/12/20 19:00 11/10/20 18:59 08/13/20 01:38 Methylprednisolone Sodium Succinate (Solu-MEDROL) 40 mg EVERY 12 HOURS IVP 08/12/20 09:09 11/02/20 12:29 08/14/20 09:10 Miscellaneous Medication (Insulin Rate Change) 1 ea PRN PRN MISC Per rx protocol 08/12/20 19:00 11/10/20 18:59 08/13/20 05:33 Norepinephrine Bitartrate 8 mg/ Sodium Chloride 500 ml @ 0 mls/hr Q24H PRN IV For hypotension 08/12/20 21:00 08/15/20 20:59 08/12/20 21:00 Pantoprazole (Protonix) 40 mg DAILY IVP 08/06/20 10:00 09/05/20 09:59 08/14/20 09:10 Polyethylene Glycol (Miralax) 17 gm BEDTIME ORAL 08/06/20 21:00 09/05/20 20:59 08/13/20 20:32 Sodium Chloride 1,000 ml @ 75 mls/hr [id number] IV 08/13/20 13:30 09/12/20 13:29 08/14/20 03:34 Vitamin D (Vitamin D) 5,000 unit DAILY GT 08/11/20 10:15 09/10/20 10:14 08/14/20 09:10 Laboratory Tests 08/13/20 13:25: POC Whole Blood Glucose 97 08/13/20 15:26: POC Whole Blood Glucose 96 08/14/20 04:25: White Blood Count 25.1*H, Red Blood Count 2.96L, Hemoglobin 9.6L, Hematocrit 28.6L, Mean Corpuscular Volume 96, Mean Corpuscular Hemoglobin 32.5H, Mean Corpuscular Hemoglobin Concent 33.7, Red Cell Distribution Width 12.2, Platelet Count 168, Mean Platelet Volume 8.5, Neutrophils (%) (Auto) , Lymphocytes (%) (Auto) , Monocytes (%) (Auto) , Eosinophils (%) (Auto) , Basophils (%) (Auto) , Differential Total Cells Counted 100, Neutrophils % (Manual) 91H, Lymphocytes % (Manual) 5L, Monocytes % (Manual) 4, Eosinophils % (Manual) 0, Basophils % (Manual) 0, Band Neutrophils 0, Platelet Estimate Adequate, Platelet Morphology Normal, Hypochromasia 1+, Anisocytosis 1+, Sodium Level 135L, Potassium Level 5.2H, Chloride Level 99, Carbon Dioxide Level 29, Anion Gap 7, Blood Urea Nitrogen 123H, Creatinine 4.3H, Estimat Glomerular Filtration Rate 13.9, Glucose Level 138H, Uric Acid 8.3H, Calcium Level 7.8L, Phosphorus Level 8.0H, Magnesium Level 2.9H, Total Bilirubin 0.3, Aspartate Amino Transf (AST/SGOT) 345H, Alanine Aminotransferase (ALT/SGPT) 50, Alkaline Phosphatase 128H, C-Reactive Protein, Quantitative 2.5H, Pro-B-Type Natriuretic Peptide 37327Y, Total Protein 4.9L, Albumin 2.2L, Globulin 2.7, Albumin/Globulin Ratio 0.8L Height (Feet): 5 Height (Inches): 5.00 Weight (Pounds): 160 General Appearance: no apparent distress EENT: other - Intubated on ventilator Cardiovascular: tachycardia Respiratory/Chest: decreased breath sounds Abdomen: distended Jared Everett MD Aug 14, 2020 12:08
[2020-08-14] MEDS: Insulin Reg 100 units Premix 100 ML IV SCH (13:38)
[2020-08-14] MEDS: dilTIAZem HCl 30mg tab GT SCH ×2 (14:00→22:00)
--- NOTE | 2020-08-14 14:00 | NUR ---
NURSE NOTES: HD Nurse at bedside ,pt having dialysis,BP BP buttom down to 60's Levophed increaesd to 15 mcg/hr.
--- NOTE | 2020-08-14 14:09 | General Progress Note ---
Subjective Constitutional: Reports: weakness Allergies: Coded Allergies: No Known Allergies (Unverified , 07/29/20) All Systems: reviewed and negative except above Subjective intubated sedated in icu Objective Last 24 Hour Vital Signs Date Time Temp Pulse Resp B/P (MAP) Pulse Ox O2 Delivery O2 Flow Rate FiO2 08/14/20 13:07 114 19 124/52 (76) 57 08/14/20 13:00 124/52 08/14/20 12:00 113 08/14/20 12:00 99.0 106 21 86/51 (63) 80 08/14/20 12:00 100 08/14/20 12:00 86/51 08/14/20 12:00 Mechanical Ventilator 08/14/20 11:35 103 16 100 08/14/20 11:00 121/70 08/14/20 11:00 103 20 121/70 (87) 80 08/14/20 10:00 101 20 115/58 (77) 86 08/14/20 10:00 115/58 08/14/20 09:00 102/55 08/14/20 09:00 103 21 102/55 (71) 86 08/14/20 08:00 98.6 102 20 100/55 (70) 83 08/14/20 08:00 Mechanical Ventilator 08/14/20 08:00 100 08/14/20 08:00 100/55 08/14/20 08:00 102 08/14/20 07:26 83 20 100 08/14/20 07:00 101 20 102/53 (69) 84 08/14/20 07:00 102/53 08/14/20 06:00 105 20 90/54 (66) 78 08/14/20 06:00 90/54 08/14/20 06:00 106 90/54 08/14/20 05:00 99.0 98 20 118/62 (80) 87 08/14/20 05:00 118/62 08/14/20 04:00 Mechanical Ventilator 08/14/20 04:00 98 18 113/59 (77) 83 08/14/20 04:00 98 08/14/20 04:00 113/59 08/14/20 04:00 100 08/14/20 03:41 99 20 100 08/14/20 03:00 96 19 109/55 (73) 86 08/14/20 03:00 109/55 08/14/20 02:00 94 19 106/61 (76) 85 08/14/20 02:00 106/61 08/14/20 01:00 99/57 08/14/20 01:00 91 22 99/57 (71) 84 08/14/20 00:00 91 08/14/20 00:00 98.3 92 20 101/60 (74) 84 08/14/20 00:00 100 08/14/20 00:00 101/60 08/14/20 00:00 Mechanical Ventilator 08/13/20 23:45 93 19 100 08/13/20 23:00 91/48 08/13/20 23:00 91 18 91/48 (62) 78 08/13/20 22:00 94/46 08/13/20 22:00 88 94/46 08/13/20 22:00 89 18 94/46 (62) 75 08/13/20 21:00 86 17 91/44 (60) 65 08/13/20 21:00 91/44 08/13/20 20:00 Mechanical Ventilator 08/13/20 20:00 93/50 08/13/20 20:00 79 08/13/20 20:00 100 08/13/20 20:00 97.9 75 17 93/50 (64) 78 08/13/20 19:46 81 16 100 08/13/20 19:00 75 17 93/50 (64) 78 08/13/20 19:00 93/50 08/13/20 18:00 83 18 119/65 (83) 86 08/13/20 18:00 119/65 08/13/20 17:00 69 16 87/46 (60) 44 08/13/20 17:00 87/46 08/13/20 16:00 63 08/13/20 16:00 98.9 63 16 82/44 (57) 65 08/13/20 16:00 100 08/13/20 16:00 82/44 08/13/20 16:00 Mechanical Ventilator 08/13/20 15:15 84 16 100 08/13/20 15:00 124/74 08/13/20 15:00 84 16 124/74 (91) 85 08/13/20 14:30 86 16 127/75 (92) 86 Intake and Output 08/13/20 08/14/20 19:00 07:00 Intake Total 1747.116 ml 1679.0 ml Output Total 970 ml 280 ml Balance 777.116 ml 1399.0 ml IV Total 1607.116 ml 1059.0 ml Tube Feeding 140 ml 420 ml Other 200 ml Output Urine Total 970 ml 280 ml # Bowel Movements 1 Laboratory Tests 08/13/20 15:26: POC Whole Blood Glucose 96 08/14/20 04:25: White Blood Count 25.1*H, Red Blood Count 2.96L, Hemoglobin 9.6L, Hematocrit 28.6L, Mean Corpuscular Volume 96, Mean Corpuscular Hemoglobin 32.5H, Mean Corpuscular Hemoglobin Concent 33.7, Red Cell Distribution Width 12.2, Platelet Count 168, Mean Platelet Volume 8.5, Neutrophils (%) (Auto) , Lymphocytes (%) (Auto) , Monocytes (%) (Auto) , Eosinophils (%) (Auto) , Basophils (%) (Auto) , Differential Total Cells Counted 100, Neutrophils % (Manual) 91H, Lymphocytes % (Manual) 5L, Monocytes % (Manual) 4, Eosinophils % (Manual) 0, Basophils % (Manual) 0, Band Neutrophils 0, Platelet Estimate Adequate, Platelet Morphology Normal, Hypochromasia 1+, Anisocytosis 1+, Sodium Level 135L, Potassium Level 5.2H, Chloride Level 99, Carbon Dioxide Level 29, Anion Gap 7, Blood Urea Nitrogen 123H, Creatinine 4.3H, Estimat Glomerular Filtration Rate 13.9, Glucose Level 138H, Uric Acid 8.3H, Calcium Level 7.8L, Phosphorus Level 8.0H, Magnesium Level 2.9H, Total Bilirubin 0.3, Aspartate Amino Transf (AST/SGOT) 345H, Alanine Aminotransferase (ALT/SGPT) 50, Alkaline Phosphatase 128H, C-Reactive Protein, Quantitative 2.5H, Pro-B-Type Natriuretic Peptide 03275K, Total Protein 4.9L, Albumin 2.2L, Globulin 2.7, Albumin/Globulin Ratio 0.8L Height (Feet): 5 Height (Inches): 5.00 Weight (Pounds): 160 General Appearance: lethargic Neck: normal alignment Cardiovascular: normal peripheral pulses, normal rate, regular rhythm Respiratory/Chest: chest wall non-tender, lungs clear, normal breath sounds Abdomen: normal bowel sounds, non tender, soft Extremities: normal inspection Edema: no edema noted Arm (L), no edema noted Arm (R), no edema noted Leg (L), no edema noted Leg (R), no edema noted Pedal (L), no edema noted Pedal (R), no edema noted Generalized Neurologic: motor weakness Skin: normal pigmentation, warm/dry Assessment/Plan Problem List: (1) Hypoxia ICD Codes: R09.02 - Hypoxemia SNOMED: 042676546 (2) Bilateral pneumonia ICD Codes: J18.9 - Pneumonia, unspecified organism SNOMED: 642404333, 106608232 (3) Acute respiratory failure with hypoxia ICD Codes: J96.01 - Acute respiratory failure with hypoxia SNOMED: 71747923, 001794859 (4) Bradycardia ICD Codes: R00.1 - Bradycardia, unspecified SNOMED: 77377501 (5) Malnutrition ICD Codes: E46 - Unspecified protein-calorie malnutrition SNOMED: 18096265 Status: unchanged Assessment/Plan: o2 pulm tx abx pt diet cardio f/u cbc bmp am Robert Guzman DO Aug 14, 2020 14:09
[2020-08-14] MEDS: Norepinephrine Bitartrate 8 MG in Sodium Chloride 492 ML IV PRN (14:32)
--- NOTE | 2020-08-14 16:00 | NUR ---
NURSE NOTES: ongoing HD done removed 1 L,procedure tolerated, BP stable Levophed drip decreased to 5 mcg/hr.
--- NOTE | 2020-08-14 17:30 | Electroencephalogram ---
DATE OF PROCEDURE: 08/11/2020 REQUESTING PHYSICIAN: Gabriel Villanueva MD. READING PHYSICIAN: Theron Kelly MD. DATE OF TRACIN08/11/2020. HISTORY: This EEG was performed on a 64-year-old gentleman with a history of multiple medical problems including COVID-19 infection associated with significant hypoxia and altered mental state. The purpose of this EEG was to evaluate the patient for the degree and type of cerebral dysfunction. TECHNICAL NOTE: This EEG was performed on a [employer] with electrodes placed on the scalp according to the International 10-20 system. [id number] and [id number] montages were used. A special double distance electrode montage was also utilized. The EEG was performed while the patient was in an unresponsive state. OBSERVATIONS: In the reportedly unresponsive state, no signs of electrical cerebral activity were noted at gains as high as 2 microvolts/mm using double distance electrodes. In addition, when the patient was stimulated with external stimuli, no significant change in the EEG background was noted. IMPRESSION: This is a severely abnormal EEG revealing no signs of electrical cerebral activity at gains as high as 2 microvolts/mm using double distance electrodes. COMMENT: This EEG is consistent with electrical cerebral inactivity. Clinical correlation is recommended. Theron Kelly M.D., M.S.P.H. Clinical Neurophysiologist DR: ROLLY JOB#: [id number] YOSSI
--- NOTE | 2020-08-14 18:00 | NUR ---
NURSE NOTES: pulled up repositioned ,kept dry and clean.
--- NOTE | 2020-08-14 18:20 | Surgery Progress Note ---
Surgery Progress Note Subjective Additional Comments ill appearing Objective Last 24 Hour Vital Signs Date Time Temp Pulse Resp B/P (MAP) Pulse Ox O2 Delivery O2 Flow Rate FiO2 08/14/20 16:00 112 08/14/20 16:00 113/56 08/14/20 16:00 100 08/14/20 16:00 Mechanical Ventilator 08/14/20 15:35 104 16 100 08/14/20 15:00 111 19 152/82 (105) 84 08/14/20 15:00 126/58 08/14/20 14:32 69/27 08/14/20 14:00 112 19 141/64 (89) 83 08/14/20 14:00 112 138/62 08/14/20 13:07 114 19 124/52 (76) 57 08/14/20 13:00 124/52 08/14/20 12:00 113 08/14/20 12:00 99.0 106 21 86/51 (63) 80 08/14/20 12:00 100 08/14/20 12:00 86/51 08/14/20 12:00 Mechanical Ventilator 08/14/20 11:35 103 16 100 08/14/20 11:00 121/70 08/14/20 11:00 103 20 121/70 (87) 80 08/14/20 10:00 101 20 115/58 (77) 86 08/14/20 10:00 115/58 08/14/20 09:00 102/55 08/14/20 09:00 103 21 102/55 (71) 86 08/14/20 08:00 98.6 102 20 100/55 (70) 83 08/14/20 08:00 Mechanical Ventilator 08/14/20 08:00 100 08/14/20 08:00 100/55 08/14/20 08:00 102 08/14/20 07:26 83 20 100 08/14/20 07:00 101 20 102/53 (69) 84 08/14/20 07:00 102/53 08/14/20 06:00 105 20 90/54 (66) 78 08/14/20 06:00 90/54 08/14/20 06:00 106 90/54 08/14/20 05:00 99.0 98 20 118/62 (80) 87 08/14/20 05:00 118/62 08/14/20 04:00 Mechanical Ventilator 08/14/20 04:00 98 18 113/59 (77) 83 08/14/20 04:00 98 08/14/20 04:00 113/59 08/14/20 04:00 100 08/14/20 03:41 99 20 100 08/14/20 03:00 96 19 109/55 (73) 86 08/14/20 03:00 109/55 08/14/20 02:00 94 19 106/61 (76) 85 08/14/20 02:00 106/61 08/14/20 01:00 99/57 08/14/20 01:00 91 22 99/57 (71) 84 08/14/20 00:00 91 08/14/20 00:00 98.3 92 20 101/60 (74) 84 08/14/20 00:00 100 08/14/20 00:00 101/60 08/14/20 00:00 Mechanical Ventilator 08/13/20 23:45 93 19 100 08/13/20 23:00 91/48 08/13/20 23:00 91 18 91/48 (62) 78 08/13/20 22:00 94/46 08/13/20 22:00 88 94/46 08/13/20 22:00 89 18 94/46 (62) 75 08/13/20 21:00 86 17 91/44 (60) 65 08/13/20 21:00 91/44 08/13/20 20:00 Mechanical Ventilator 08/13/20 20:00 93/50 08/13/20 20:00 79 08/13/20 20:00 100 08/13/20 20:00 97.9 75 17 93/50 (64) 78 08/13/20 19:46 81 16 100 08/13/20 19:00 75 17 93/50 (64) 78 08/13/20 19:00 93/50 I&O Intake and Output 08/13/20 08/14/20 19:00 07:00 Intake Total 1747.116 ml 1679.0 ml Output Total 970 ml 280 ml Balance 777.116 ml 1399.0 ml IV Total 1607.116 ml 1059.0 ml Tube Feeding 140 ml 420 ml Other 200 ml Output Urine Total 970 ml 280 ml # Bowel Movements 1 Dressing: saturated Cardiovascular: RSR Respiratory: decreased breath sounds Abdomen: non-tender, present bowel sounds Extremities: no cyanosis Laboratory Tests Test 08/13/20 19:50 08/14/20 01:35 08/14/20 04:25 08/14/20 09:20 POC Whole Blood Glucose 140 MG/DL (74-106) H 156 MG/DL (74-106) H Pending White Blood Count 25.1 K/UL (4.8-10.8) *H Red Blood Count 2.96 M/UL (4.70-6.10) L Hemoglobin 9.6 G/DL (14.2-18.0) L Hematocrit 28.6 % (42.0-52.0) L Mean Corpuscular Volume 96 FL (80-99) Mean Corpuscular Hemoglobin 32.5 PG (27.0-31.0) H Mean Corpuscular Hemoglobin Concent 33.7 G/DL (32.0-36.0) Red Cell Distribution Width 12.2 % (11.6-14.8) Platelet Count 168 K/UL (150-450) Mean Platelet Volume 8.5 FL (6.5-10.1) Neutrophils (%) (Auto) % (45.0-75.0) Lymphocytes (%) (Auto) % (20.0-45.0) Monocytes (%) (Auto) % (1.0-10.0) Eosinophils (%) (Auto) % (0.0-3.0) Basophils (%) (Auto) % (0.0-2.0) Differential Total Cells Counted 100 Neutrophils % (Manual) 91 % (45-75) H Lymphocytes % (Manual) 5 % (20-45) L Monocytes % (Manual) 4 % (1-10) Eosinophils % (Manual) 0 % (0-3) Basophils % (Manual) 0 % (0-2) Band Neutrophils 0 % (0-8) Platelet Estimate Adequate Platelet Morphology Normal Hypochromasia 1+ Anisocytosis 1+ Sodium Level 135 MMOL/L (136-145) L Potassium Level 5.2 MMOL/L (3.5-5.1) H Chloride Level 99 MMOL/L (98-107) Carbon Dioxide Level 29 MMOL/L (21-32) Anion Gap 7 mmol/L (5-15) Blood Urea Nitrogen 123 mg/dL (7-18) H Creatinine 4.3 MG/DL (0.55-1.30) H Estimat Glomerular Filtration Rate 13.9 mL/min (>60) Glucose Level 138 MG/DL (74-106) H Uric Acid 8.3 MG/DL (2.6-7.2) H Calcium Level 7.8 MG/DL (8.5-10.1) L Phosphorus Level 8.0 MG/DL (2.5-4.9) H Magnesium Level 2.9 MG/DL (1.8-2.4) H Total Bilirubin 0.3 MG/DL (0.2-1.0) Aspartate Amino Transf (AST/SGOT) 345 U/L (15-37) H Alanine Aminotransferase (ALT/SGPT) 50 U/L (12-78) Alkaline Phosphatase 128 U/L (46-116) H C-Reactive Protein, Quantitative 2.5 mg/dL (0.00-0.90) H Pro-B-Type Natriuretic Peptide 20898 pg/mL (0-125) H Total Protein 4.9 G/DL (6.4-8.2) L Albumin 2.2 G/DL (3.4-5.0) L Globulin 2.7 g/dL Albumin/Globulin Ratio 0.8 (1.0-2.7) L Test 08/14/20 10:14 08/14/20 12:03 08/14/20 15:46 08/14/20 16:32 POC Whole Blood Glucose Pending 146 MG/DL (74-106) H 135 MG/DL (74-106) H Pending Test 08/14/20 17:03 POC Whole Blood Glucose 136 MG/DL (74-106) H Plan Problems: (1) Hypoxia (2) Bilateral pneumonia (3) Acute respiratory failure with hypoxia Assessment & Plan: ards covid negative as per pulm id input appreciated abd pain likely cramping indigestion from ill ness ppi ordered okay for diet monitor intake am labs will follow with exam and recs acute decline intubated in ICU on vent liver insufficiency acute hepatic in sufficiency renal insufficiency no acute surgical intervention needs resuscitation meds reviewed (4) Bradycardia (5) Malnutrition Assessment & Plan: DAILY ESTIMATED NEEDS: Needs based on [facility] care 64.5kg abw 22-28 kcals/kg 3245-8840 total kcals 1.2-2 g protein/kg 77-129 g total protein 25-30 mL/kg 9519-0137 total fluid mLs NUTRITION DIAGNOSIS: Altered nutrition related lab values related to clinical status as evidenced by elev LD(665), elev WBC(trending down 17.7), elev BG(132-176), elevated lytes(K, phos, mg), elev renal labs (BUN73, creat 3.2), elev LFT's ENTERAL NUTRITION RECOMMENDATIONS: As medically able, rec non oral feeds: NEPRO @35ml/hr x24 hrs to provide 840ml, 1512 kcal, 68g pro, 611ml free H2O - With hemodynamic stability, rec OGt feeds to meet est needs. - Start Nepro @15ml/hr for 6 hrs, advance as tolerated 10ml/hr q4-6 hrs to goal - Flush per MD. HOB over 30 degrees - When tolerating TF at goal, add Prosource 1 pack daily to better meet est pro needs. ADDITIONAL RECOMMENDATIONS: 1) recalibrate bed scale wt for accurate CBW 2) Monitor BG, need for NISS 3) TF recs as above when stable for feeds . (6) Shock liver Assessment & Plan: worsening lft's likely hydration resuscitation trend labs improving (7) ERIKA (acute kidney injury) Vern Quevedo Aug 14, 2020 18:19
--- NOTE | 2020-08-14 19:10 | NUR ---
NURSE HAND-OFF REPORT: Latest Vital Signs: Temperature 98.9 , Pulse 110 , B/P 97 /50 , Respiratory Rate 16 , O2 SAT 70 , Mechanical Ventilator, O2 Flow Rate . Vital Sign Comment: EKG Rhythm: Sinus Tachycardia Rhythm change?: N Notified?: Moi Guzman MD Response: Latest Orozco Fall Score: 70 Fall Risk: High Risk Safety Measures: Call light Within Reach, Bed Alarm Zone 1, Side Rails Side Rails x2, Bed position Low and Locked. Fall Precautions: Yellow Socks Door Sign Patient Fall Education Report given to Charles Gomez RN.
--- NOTE | 2020-08-14 19:30 | NUR ---
NURSE NOTES: Received pt in bed, unresponsive and comatose, on vent via ETT saturating between 70's-80% on 100% FiO2 and Peep of 8. OGT in place with Nepro running at 35cc/hr with no residuals noted. NS infusing at 75cc/hr via right hand #20 and levophed running at 5mcg/min via pigtail on [facility]. Vernon cath in place draining light gaby colored urine. VS stable and pt is sinus rhythm on the monitor.
--- NOTE | 2020-08-14 20:00 | NUR ---
NURSE NOTES: SBP remains on the 80's. Levophed will be titrated per protocol.
[2020-08-14] MEDS: Dyna-Hex 2% Top Sol 2oz TOPIC SCH (20:38)
[2020-08-14] MEDS: Miralax 17gm pkt ORAL SCH (20:38)
--- NOTE | 2020-08-14 22:00 | NUR ---
NURSE NOTES: BP now stable at 15mcg of levophed. Blood sugar now is 160. Insulin drip increased to 7units/hr.
--- NOTE | 2020-08-14 22:28 | Neurology Progress Note ---
Interim History Interim History ROS Limited/Unobtainable: Yes Interim History remains unstable for ct brain Objective Physical Exam Last Vital Signs Date Time Temp Pulse Resp B/P (MAP) Pulse Ox O2 Delivery O2 Flow Rate FiO2 08/14/20 19:11 78 16 100 08/14/20 19:00 97/50 (66) 70 08/14/20 16:00 98.9 08/14/20 16:00 Mechanical Ventilator Laboratory Tests Test 08/14/20 01:35 08/14/20 04:25 08/14/20 09:20 08/14/20 10:14 POC Whole Blood Glucose 156 MG/DL (74-106) H Pending Pending White Blood Count 25.1 K/UL (4.8-10.8) *H Red Blood Count 2.96 M/UL (4.70-6.10) L Hemoglobin 9.6 G/DL (14.2-18.0) L Hematocrit 28.6 % (42.0-52.0) L Mean Corpuscular Volume 96 FL (80-99) Mean Corpuscular Hemoglobin 32.5 PG (27.0-31.0) H Mean Corpuscular Hemoglobin Concent 33.7 G/DL (32.0-36.0) Red Cell Distribution Width 12.2 % (11.6-14.8) Platelet Count 168 K/UL (150-450) Mean Platelet Volume 8.5 FL (6.5-10.1) Neutrophils (%) (Auto) % (45.0-75.0) Lymphocytes (%) (Auto) % (20.0-45.0) Monocytes (%) (Auto) % (1.0-10.0) Eosinophils (%) (Auto) % (0.0-3.0) Basophils (%) (Auto) % (0.0-2.0) Differential Total Cells Counted 100 Neutrophils % (Manual) 91 % (45-75) H Lymphocytes % (Manual) 5 % (20-45) L Monocytes % (Manual) 4 % (1-10) Eosinophils % (Manual) 0 % (0-3) Basophils % (Manual) 0 % (0-2) Band Neutrophils 0 % (0-8) Platelet Estimate Adequate Platelet Morphology Normal Hypochromasia 1+ Anisocytosis 1+ Sodium Level 135 MMOL/L (136-145) L Potassium Level 5.2 MMOL/L (3.5-5.1) H Chloride Level 99 MMOL/L (98-107) Carbon Dioxide Level 29 MMOL/L (21-32) Anion Gap 7 mmol/L (5-15) Blood Urea Nitrogen 123 mg/dL (7-18) H Creatinine 4.3 MG/DL (0.55-1.30) H Estimat Glomerular Filtration Rate 13.9 mL/min (>60) Glucose Level 138 MG/DL (74-106) H Uric Acid 8.3 MG/DL (2.6-7.2) H Calcium Level 7.8 MG/DL (8.5-10.1) L Phosphorus Level 8.0 MG/DL (2.5-4.9) H Magnesium Level 2.9 MG/DL (1.8-2.4) H Total Bilirubin 0.3 MG/DL (0.2-1.0) Aspartate Amino Transf (AST/SGOT) 345 U/L (15-37) H Alanine Aminotransferase (ALT/SGPT) 50 U/L (12-78) Alkaline Phosphatase 128 U/L (46-116) H C-Reactive Protein, Quantitative 2.5 mg/dL (0.00-0.90) H Pro-B-Type Natriuretic Peptide 04163 pg/mL (0-125) H Total Protein 4.9 G/DL (6.4-8.2) L Albumin 2.2 G/DL (3.4-5.0) L Globulin 2.7 g/dL Albumin/Globulin Ratio 0.8 (1.0-2.7) L Test 08/14/20 12:03 08/14/20 15:46 08/14/20 16:32 08/14/20 17:03 POC Whole Blood Glucose 146 MG/DL (74-106) H 135 MG/DL (74-106) H Pending 136 MG/DL (74-106) H Neurologic Exam Objective intubated, sedated per nurse earlier pupils reactive, no movement to pain Impression/Recommendations Problems: (1) Hypoxia (2) Bilateral pneumonia (3) Acute respiratory failure with hypoxia (4) Bradycardia (5) Malnutrition (6) Shock liver (7) ERIKA (acute kidney injury) (8) Diabetes mellitus out of control Status: unchanged Diagnostic Impression Prolonged admission with septic shock, resp failure, now kidney failure on HD LFTs worsening ro anoxic brain injury icu level map > 65 prognosis is poor EEG ordered CT brain if stable to go down Gabriel Villanueva MD Aug 14, 2020 22:28
[2020-08-15] VITALS (39 sets, daily range): BP systolic 54–144; BP diastolic 30–77
--- NOTE | 2020-08-15 | NUR ---
pt stable. BS now 156. insulin drip decreased to 5.5 per protocol. Pt repositioned for comfort. Temp now is 98. Previously it was 101.7 at 1999. Addendum: 08/15/20 at 0651 by SUJEY HENRY RN RN Correction: Temp now is 101.5 not 101.7. Previously it was 97.9 at 1999. Tylenol given and cooling measures initiated.
[2020-08-15] MEDS: Acetaminophen 650mg/20.3ml NG PRN ×2 (00:50→13:39)
--- NOTE | 2020-08-15 02:00 | NUR ---
NURSE NOTES: Pt still at 15mcg of levophed. BS now is 199. Insulin drip increased to 8.5units/hr per protocol.
[2020-08-15] MEDS: Norepinephrine Bitartrate 8 MG in Sodium Chloride 492 ML IV PRN ×4 (03:26→20:48)
--- NOTE | 2020-08-15 04:00 | NUR ---
NURSE NOTES: Pt condition remains unchanged. Temp now is 100.5. BS is now 181. Insulin drip remains at the same rate.
[2020-08-15] MEDS: Insulin Reg 100 units Premix 100 ML IV SCH (04:34)
[2020-08-15 05:24] LABS: HEMATOCRIT 34.2 % (42.0-52.0); HEMOGLOBIN 10.7 G/DL (14.2-18.0); MEAN CORPUSCULAR VOLUME 100 FL (80-99); PLATELET COUNT 294 K/UL (150-450)
[2020-08-15 05:44] LABS: WHITE BLOOD COUNT 35.3 K/UL (4.8-10.8)
[2020-08-15] MEDS: dilTIAZem HCl 30mg tab GT SCH ×2 (06:00→13:22)
--- NOTE | 2020-08-15 06:00 | NUR ---
NURSE NOTES: Pt's condition remains unchanged. Pt still at 15mcg of levophed. Will continue to monitor pt.
--- NOTE | 2020-08-15 06:27 | General Progress Note ---
Subjective ROS Limited/Unobtainable: Yes Allergies: Coded Allergies: No Known Allergies (Unverified , 07/29/20) Subjective events note interval notes reviewed glucose values are controlled on insulin gtt - drip rate is still high Item Value Date Time Bedside Blood Glucose 162 mg/dl H 08/15/20 0600 Bedside Blood Glucose 199 mg/dl H 08/15/20 0200 Bedside Blood Glucose 160 mg/dl H 08/14/20 2200 Bedside Blood Glucose 136 mg/dl H 08/14/20 1813 Bedside Blood Glucose 135 mg/dl H 08/14/20 1400 Bedside Blood Glucose 116 mg/dl 08/14/20 1000 Objective Last 24 Hour Vital Signs Date Time Temp Pulse Resp B/P (MAP) Pulse Ox O2 Delivery O2 Flow Rate FiO2 08/15/20 06:00 116 20 98/47 (64) 66 08/15/20 06:00 116 98/47 08/15/20 05:02 116/69 08/15/20 05:00 116 16 116/69 (85) 65 08/15/20 04:00 100.2 121 19 117/58 (77) 63 08/15/20 04:00 Mechanical Ventilator 08/15/20 04:00 123 08/15/20 04:00 100 08/15/20 04:00 117/58 08/15/20 03:00 122 16 113/58 (76) 64 08/15/20 03:00 113/58 08/15/20 02:00 124 17 113/59 (77) 52 08/15/20 02:00 113/59 08/15/20 01:00 112 16 86/52 (63) 64 08/15/20 01:00 86/52 08/15/20 00:22 111 16 100 08/15/20 00:00 117 08/15/20 00:00 91/47 08/15/20 00:00 101.5 114 16 91/47 (62) 67 08/15/20 00:00 Mechanical Ventilator 08/14/20 23:00 116 21 113/54 (73) 69 08/14/20 23:00 113/54 08/14/20 22:00 114 20 95/55 (68) 75 08/14/20 22:00 114 95/55 08/14/20 22:00 95/55 08/14/20 21:00 120 20 102/62 (75) 71 08/14/20 21:00 102/60 08/14/20 20:15 95 16 91/46 (61) 76 08/14/20 20:15 91/46 08/14/20 20:10 98 17 86/45 (59) 76 08/14/20 20:10 86/45 08/14/20 20:05 87/42 08/14/20 20:05 102 18 87/42 (57) 75 08/14/20 20:00 100 08/14/20 20:00 97.9 94 16 85/45 (58) 66 08/14/20 20:00 85/45 08/14/20 20:00 100 08/14/20 20:00 Mechanical Ventilator 08/14/20 19:11 78 16 100 08/14/20 19:00 110 16 97/50 (66) 70 08/14/20 19:00 97/50 08/14/20 18:00 98/49 08/14/20 18:00 107 16 98/49 (65) 79 08/14/20 17:00 112 19 112/52 (72) 79 08/14/20 17:00 112/55 08/14/20 16:00 112 08/14/20 16:00 113/56 08/14/20 16:00 100 08/14/20 16:00 98.9 108 18 117/54 (75) 84 08/14/20 16:00 Mechanical Ventilator 08/14/20 15:35 104 16 100 08/14/20 15:00 111 19 152/82 (105) 84 08/14/20 15:00 126/58 08/14/20 14:32 69/27 08/14/20 14:00 112 19 141/64 (89) 83 08/14/20 14:00 112 138/62 08/14/20 13:07 114 19 124/52 (76) 57 08/14/20 13:00 124/52 08/14/20 12:00 113 08/14/20 12:00 99.0 106 21 86/51 (63) 80 08/14/20 12:00 100 08/14/20 12:00 86/51 08/14/20 12:00 Mechanical Ventilator 08/14/20 11:35 103 16 100 08/14/20 11:00 121/70 08/14/20 11:00 103 20 121/70 (87) 80 08/14/20 10:00 101 20 115/58 (77) 86 08/14/20 10:00 115/58 08/14/20 09:00 102/55 08/14/20 09:00 103 21 102/55 (71) 86 08/14/20 08:00 98.6 102 20 100/55 (70) 83 08/14/20 08:00 Mechanical Ventilator 08/14/20 08:00 100 08/14/20 08:00 100/55 08/14/20 08:00 102 08/14/20 07:26 83 20 100 08/14/20 07:00 101 20 102/53 (69) 84 08/14/20 07:00 102/53 Intake and Output 08/14/20 08/15/20 19:00 07:00 Intake Total 1811.75 ml 1891.4825 ml Output Total 550 ml 130 ml Balance 1261.75 ml 1761.4825 ml Free Water 100 ml IV Total 1191.75 ml 1306.4825 ml Tube Feeding 420 ml 385 ml Other 100 ml 200 ml Output Urine Total 550 ml 130 ml Laboratory Tests 08/14/20 09:20: POC Whole Blood Glucose [Pending] 08/14/20 10:14: POC Whole Blood Glucose [Pending] 08/14/20 12:03: POC Whole Blood Glucose 146H 08/14/20 15:46: POC Whole Blood Glucose 135H 08/14/20 16:32: POC Whole Blood Glucose [Pending] 08/14/20 17:03: POC Whole Blood Glucose 136H 08/14/20 19:55: POC Whole Blood Glucose [Pending] 08/14/20 22:13: POC Whole Blood Glucose [Pending] 08/14/20 23:48: POC Whole Blood Glucose [Pending] 08/15/20 01:51: POC Whole Blood Glucose 199H 08/15/20 03:55: POC Whole Blood Glucose [Pending] 08/15/20 04:00: White Blood Count 35.3*H, Red Blood Count 3.40L, Hemoglobin 10.7L, Hematocrit 34.2L, Mean Corpuscular Volume 100H, Mean Corpuscular Hemoglobin 31.3H, Mean Corpuscular Hemoglobin Concent 31.2L, Red Cell Distribution Width 13.0, Platelet Count 294#, Mean Platelet Volume 8.5, Neutrophils (%) (Auto) , Lymphocytes (%) (Auto) , Monocytes (%) (Auto) , Eosinophils (%) (Auto) , Basophils (%) (Auto) , Neutrophils % (Manual) [Pending], Lymphocytes % (Manual) [Pending], Platelet Estimate [Pending], Platelet Morphology [Pending], Sodium Level [Pending], Potassium Level [Pending], Chloride Level [Pending], Carbon Dioxide Level [Pending], Blood Urea Nitrogen [Pending], Creatinine [Pending], Estimat Glomerular Filtration Rate [Pending], Glucose Level [Pending], Calcium Level [Pending], Phosphorus Level [Pending], Magnesium Level [Pending], Total Bilirubin [Pending], Aspartate Amino Transf (AST/SGOT) [Pending], Alanine A minotransferase (ALT/SGPT) [Pending], Alkaline Phosphatase [Pending], C-Reactive Protein, Quantitative [Pending], Pro-B-Type Natriuretic Peptide [Pending], Total Protein [Pending], Albumin [Pending], Globulin [Pending] Height (Feet): 5 Height (Inches): 5.00 Weight (Pounds): 160 Objective Current Medications Medications (Trade) Dose Ordered Sig/Fabiano Route PRN Reason Start Time Stop Time Status Last Admin Dose Admin Acetaminophen (Tylenol) 650 mg Q4H PRN NG Temp >100.5 08/03/20 04:15 09/02/20 04:14 08/15/20 00:50 Acetaminophen (Tylenol) 650 mg Q4H PRN RECTAL Temp >100.5 08/01/20 20:30 08/31/20 20:29 08/13/20 01:22 Albuterol Sulfate (Proventil MDI) 2 puff Q4H PRN INH Shortness of Breath 07/29/20 22:45 10/27/20 22:44 Ceftriaxone Sodium 1 gm/ Sodium Chloride 55 ml @ 110 mls/hr Q24H IVPB 08/13/20 10:00 08/20/20 09:59 08/14/20 09:12 Cetylpyridinium Chloride (Cepacol) 1 lozg Q2H PRN [place] For Cough 07/30/20 21:00 10/28/20 20:59 08/01/20 08:47 Chlorhexidine Gluconate (Marisela-Hex 2%) 1 applic DAILY@2000 TOPIC 08/08/20 20:00 11/06/20 19:59 08/14/20 20:38 Clonidine HCl (Catapres Tab) 0.1 mg Q2H PRN ORAL SBP > 170mmHg 08/04/20 09:45 11/02/20 09:44 08/07/20 23:20 Dextrose (Dextrose 50%) 25 ml Q30M PRN IV HYPOGLYCEMIA 08/12/20 19:00 11/10/20 18:59 Dextrose (Dextrose 50%) 50 ml Q30M PRN IV HYPOGLYCEMIA 08/12/20 19:00 11/10/20 18:59 Diltiazem HCl (Cardizem Tab) 120 mg Q8HR GT 08/14/20 14:00 09/07/20 21:59 Docusate Sodium (Colace) 100 mg Q12HR GT 08/08/20 21:00 09/07/20 20:59 08/14/20 20:38 Enoxaparin Sodium (Lovenox) 30 mg DAILY SUBQ 08/02/20 10:00 10/31/20 09:59 08/14/20 09:11 Guaifenesin/ Dextromethorphan (Robitussin DM Syrup) 15 ml Q6H PRN ORAL For Cough 07/31/20 08:30 10/29/20 08:29 08/01/20 08:47 Insulin Human (Reg)/Sodium Chloride 100 ml @ 0 mls/hr Q24H IV 08/12/20 23:45 11/10/20 23:44 08/15/20 04:34 Insulin Human Regular (NovoLIN R) 5 units PRN PRN IV BS 200-299 08/12/20 19:00 11/10/20 18:59 08/13/20 05:32 Insulin Human Regular (NovoLIN R) 10 units PRN PRN IV BS=>300 08/12/20 19:00 11/10/20 18:59 08/13/20 01:38 Methylprednisolone Sodium Succinate (Solu-MEDROL) 40 mg EVERY 12 HOURS IVP 08/12/20 09:09 11/02/20 12:29 08/14/20 20:38 Miscellaneous Medication (Insulin Rate Change) 1 ea PRN PRN MISC Per rx protocol 08/12/20 19:00 11/10/20 18:59 08/13/20 05:33 Norepinephrine Bitartrate 8 mg/ Sodium Chloride 500 ml @ 0 mls/hr Q24H PRN IV For hypotension 08/12/20 21:00 08/15/20 20:59 08/15/20 05:02 Pantoprazole (Protonix) 40 mg DAILY IVP 08/06/20 10:00 09/05/20 09:59 08/14/20 09:10 Polyethylene Glycol (Miralax) 17 gm BEDTIME ORAL 08/06/20 21:00 09/05/20 20:59 08/14/20 20:38 Sodium Chloride 1,000 ml @ 75 mls/hr [id number] IV 08/13/20 13:30 09/12/20 13:29 08/15/20 03:26 Vitamin D (Vitamin D) 5,000 unit DAILY GT 08/11/20 10:15 09/10/20 10:14 08/14/20 09:10 Assessment/Plan Problem List: (1) Diabetes mellitus out of control ICD Codes: E11.65 - Type 2 diabetes mellitus with hyperglycemia SNOMED: 94157568, 156773336 (2) Acute respiratory failure with hypoxia ICD Codes: J96.01 - Acute respiratory failure with hypoxia SNOMED: 62013100, 574459704 (3) Bilateral pneumonia ICD Codes: J18.9 - Pneumonia, unspecified organism SNOMED: 760256157, 785990594 Status: unchanged Assessment/Plan: continue insulin gtt glucose check every 2 hours switch back to sub Q insulin once off dextrose infusion Jeffrey Sinclair MD Aug 15, 2020 06:27
--- NOTE | 2020-08-15 06:35 | NUR ---
NURSE NOTES: Dr. Ornelas in to see pt. Informed him of pt's latest WBC count of 35.3. No orders given.
[2020-08-15 06:48] LABS: ALBUMIN 2.3 G/DL (3.4-5.0); ALBUMIN/GLOBULIN RATIO 0.7 (1.0-2.7); BILIRUBIN,TOTAL 0.3 MG/DL (0.2-1.0); CALCIUM 7.9 MG/DL (8.5-10.1); CREATININE 4.1 MG/DL (0.55-1.30); PHOSPHORUS 8.5 MG/DL (2.5-4.9); POTASSIUM 5.6 MMOL/L (3.5-5.1)
--- NOTE | 2020-08-15 06:50 | NUR ---
RESPIRATORY NOTE: PT received on ACVC: 15, 550, 100%, +8. Alarms are on and audible. Vent circuit is secure and out of the way. Airway is secure and patent. No s/s of respiratory distress noted at this time. Will continue to closely monitor.
--- NOTE | 2020-08-15 07:10 | NUR ---
NURSE HAND-OFF REPORT: Latest Vital Signs: Temperature 100.2 , Pulse 116 , B/P 98 /47 , Respiratory Rate 20 , O2 SAT 66 , Mechanical Ventilator, O2 Flow Rate . Vital Sign Comment: EKG Rhythm: Sinus Tachycardia Rhythm change?: N Notified?: Moi Guzman MD Response: Latest Orozco Fall Score: 70 Fall Risk: High Risk Safety Measures: Call light Within Reach, Bed Alarm Zone 1, Side Rails Side Rails x2, Bed position Low and Locked. Fall Precautions: Yellow Socks Door Sign Patient Fall Education Report given to CARLOS Dominguez. Addendum: 08/15/20 at 0711 by SUJEY HENRY RN RN Report was given to CARLOS Shin and not CARLOS Dominguez
--- NOTE | 2020-08-15 07:15 | NUR ---
NURSE NOTES: Report received from Anibal Soto RN.Pt comatose,non responsive to any stimuli,orally intubated,ETT7.5,lip line 24,connected to vent ordered vent settings not tolerated,pt;s O2 sat low at 70's with FIO2 100%,S-tach on the monitor,OGT feeding neproat 35 ml/hr,in placed per auscultation,with no residual,Vernon cath draining yellow urine,SR up x2,HOB elevated bed lock in lowest position,will continue with plans of care.
--- NOTE | 2020-08-15 07:37 | Hematology/Onc Progress Note ---
Assessment/Plan Assessment/Plan Assessment and Recs # Leukocytosis with Acute respiratory failure with hypoxia/covid19++ --> wbc 27-->20-->19-->23-->28-->23->26-->24-->35 --> ABx ctx --> steriods as well --> pulm and ID # Thrombocytopenia is likely related to covid19 --> plt 83-->118-->183->111-->107-->154 --> trend as needed --> transfuse prn --> hep and hiv neg # Anemia of chronic dsease --> hgb 10-->10.2-->10 --> anemia panel has been reviewed # Respiratory Failure --> intubated 08/01/20 --> oxygenating better --> Continue PEEP 12; now decreased to 5 # AMs --> as per neuro # Hyponatremia --> per primary MD # Hyperglycemia --> BG control # Pneumonia --> abx per ID --> on dexamethasone (07/30-) --> now on remdesivir per ID (08/01-) # Covid19 with Elevated inflammatory markers; ferritin, D-Dimer --> On Lovenox # Dvt ppx lovenox sq Appreciate consultation and krysta GONZALEZ Subjective Allergies: Coded Allergies: No Known Allergies (Unverified , 07/29/20) All Systems: reviewed and negative except above Subjective 08/06 remains altered, on vent, poorly responsive, as per Sophia Polanco, to inform son 08/07 labs noted, on vent, with ogt, meds reviewed, wbc elev, on steriods 08/08 remains on vent, on dex and ogt, no bleeding, on ctx 08/10 is on vent, ogt, no bleeding, meds noted, no night sweats, krysta rn 08/11 on vent, gt, no bleeding, vital studies neg, krysta rn, picc noted 08/12 on vent, with ogt, labs reviewed, plts improved 08/13 on vent, intubated, with ogt, on fluids as well 08/14 nv, on vent, on levo as well, awaiting eeg read with neuro 08/15 on vent, on ctx, wbc at 35k, neuro has read eeg, no activity Objective Objective Current Medications Medications (Trade) Dose Ordered Sig/Fabiano Route PRN Reason Start Time Stop Time Status Last Admin Dose Admin Acetaminophen (Tylenol) 650 mg Q4H PRN NG Temp >100.5 08/03/20 04:15 09/02/20 04:14 08/15/20 00:50 Acetaminophen (Tylenol) 650 mg Q4H PRN RECTAL Temp >100.5 08/01/20 20:30 08/31/20 20:29 08/13/20 01:22 Albuterol Sulfate (Proventil MDI) 2 puff Q4H PRN INH Shortness of Breath 07/29/20 22:45 10/27/20 22:44 Ceftriaxone Sodium 1 gm/ Sodium Chloride 55 ml @ 110 mls/hr Q24H IVPB 08/13/20 10:00 08/20/20 09:59 08/14/20 09:12 Cetylpyridinium Chloride (Cepacol) 1 lozg Q2H PRN [place] For Cough 07/30/20 21:00 10/28/20 20:59 08/01/20 08:47 Chlorhexidine Gluconate (Marisela-Hex 2%) 1 applic DAILY@2000 TOPIC 08/08/20 20:00 11/06/20 19:59 08/14/20 20:38 Clonidine HCl (Catapres Tab) 0.1 mg Q2H PRN ORAL SBP > 170mmHg 08/04/20 09:45 11/02/20 09:44 08/07/20 23:20 Dextrose (Dextrose 50%) 25 ml Q30M PRN IV HYPOGLYCEMIA 08/12/20 19:00 11/10/20 18:59 Dextrose (Dextrose 50%) 50 ml Q30M PRN IV HYPOGLYCEMIA 08/12/20 19:00 11/10/20 18:59 Diltiazem HCl (Cardizem Tab) 120 mg Q8HR GT 08/14/20 14:00 09/07/20 21:59 Docusate Sodium (Colace) 100 mg Q12HR GT 08/08/20 21:00 09/07/20 20:59 08/14/20 20:38 Enoxaparin Sodium (Lovenox) 30 mg DAILY SUBQ 08/02/20 10:00 10/31/20 09:59 08/14/20 09:11 Guaifenesin/ Dextromethorphan (Robitussin DM Syrup) 15 ml Q6H PRN ORAL For Cough 07/31/20 08:30 10/29/20 08:29 08/01/20 08:47 Insulin Human (Reg)/Sodium Chloride 100 ml @ 0 mls/hr Q24H IV 08/12/20 23:45 11/10/20 23:44 08/15/20 04:34 Insulin Human Regular (NovoLIN R) 5 units PRN PRN IV BS 200-299 08/12/20 19:00 11/10/20 18:59 08/13/20 05:32 Insulin Human Regular (NovoLIN R) 10 units PRN PRN IV BS=>300 08/12/20 19:00 11/10/20 18:59 08/13/20 01:38 Methylprednisolone Sodium Succinate (Solu-MEDROL) 40 mg EVERY 12 HOURS IVP 08/12/20 09:09 11/02/20 12:29 08/14/20 20:38 Miscellaneous Medication (Insulin Rate Change) 1 ea PRN PRN MISC Per rx protocol 08/12/20 19:00 11/10/20 18:59 08/13/20 05:33 Norepinephrine Bitartrate 8 mg/ Sodium Chloride 500 ml @ 0 mls/hr Q24H PRN IV For hypotension 08/12/20 21:00 08/15/20 20:59 08/15/20 05:02 Pantoprazole (Protonix) 40 mg DAILY IVP 08/06/20 10:00 09/05/20 09:59 08/14/20 09:10 Polyethylene Glycol (Miralax) 17 gm BEDTIME ORAL 08/06/20 21:00 09/05/20 20:59 08/14/20 20:38 Sodium Chloride 1,000 ml @ 75 mls/hr [id number] IV 08/13/20 13:30 09/12/20 13:29 08/15/20 03:26 Vitamin D (Vitamin D) 5,000 unit DAILY GT 08/11/20 10:15 09/10/20 10:14 08/14/20 09:10 Last 24 Hour Vital Signs Date Time Temp Pulse Resp B/P (MAP) Pulse Ox O2 Delivery O2 Flow Rate FiO2 08/15/20 07:00 120 23 123/69 (87) 69 08/15/20 07:00 123/69 08/15/20 06:00 116 20 98/47 (64) 66 08/15/20 06:00 116 98/47 08/15/20 06:00 98/47 08/15/20 05:02 116/69 08/15/20 05:00 116 16 116/69 (85) 65 08/15/20 04:00 100.2 121 19 117/58 (77) 63 08/15/20 04:00 Mechanical Ventilator 08/15/20 04:00 123 08/15/20 04:00 100 08/15/20 04:00 117/58 08/15/20 03:00 122 16 113/58 (76) 64 08/15/20 03:00 113/58 08/15/20 02:00 124 17 113/59 (77) 52 08/15/20 02:00 113/59 08/15/20 01:00 112 16 86/52 (63) 64 08/15/20 01:00 86/52 08/15/20 00:22 111 16 100 08/15/20 00:00 117 08/15/20 00:00 91/47 08/15/20 00:00 101.5 114 16 91/47 (62) 67 08/15/20 00:00 Mechanical Ventilator 08/14/20 23:00 116 21 113/54 (73) 69 08/14/20 23:00 113/54 08/14/20 22:00 114 20 95/55 (68) 75 08/14/20 22:00 114 95/55 08/14/20 22:00 95/55 08/14/20 21:00 120 20 102/62 (75) 71 08/14/20 21:00 102/60 08/14/20 20:15 95 16 91/46 (61) 76 08/14/20 20:15 91/46 08/14/20 20:10 98 17 86/45 (59) 76 08/14/20 20:10 86/45 08/14/20 20:05 87/42 08/14/20 20:05 102 18 87/42 (57) 75 08/14/20 20:00 100 08/14/20 20:00 97.9 94 16 85/45 (58) 66 08/14/20 20:00 85/45 08/14/20 20:00 100 08/14/20 20:00 Mechanical Ventilator 08/14/20 19:11 78 16 100 08/14/20 19:00 110 16 97/50 (66) 70 08/14/20 19:00 97/50 08/14/20 18:00 98/49 08/14/20 18:00 107 16 98/49 (65) 79 08/14/20 17:00 112 19 112/52 (72) 79 08/14/20 17:00 112/55 08/14/20 16:00 112 08/14/20 16:00 113/56 08/14/20 16:00 100 08/14/20 16:00 98.9 108 18 117/54 (75) 84 08/14/20 16:00 Mechanical Ventilator 08/14/20 15:35 104 16 100 08/14/20 15:00 111 19 152/82 (105) 84 08/14/20 15:00 126/58 08/14/20 14:32 69/27 08/14/20 14:00 112 19 141/64 (89) 83 08/14/20 14:00 112 138/62 08/14/20 13:07 114 19 124/52 (76) 57 08/14/20 13:00 124/52 08/14/20 12:00 113 08/14/20 12:00 99.0 106 21 86/51 (63) 80 08/14/20 12:00 100 08/14/20 12:00 86/51 08/14/20 12:00 Mechanical Ventilator 08/14/20 11:35 103 16 100 08/14/20 11:00 121/70 08/14/20 11:00 103 20 121/70 (87) 80 08/14/20 10:00 101 20 115/58 (77) 86 08/14/20 10:00 115/58 08/14/20 09:00 102/55 08/14/20 09:00 103 21 102/55 (71) 86 08/14/20 08:00 98.6 102 20 100/55 (70) 83 08/14/20 08:00 Mechanical Ventilator 08/14/20 08:00 100 08/14/20 08:00 100/55 08/14/20 08:00 102 08/14/20 07:26 83 20 100 08/14/20 07:00 101 20 102/53 (69) 84 08/14/20 07:00 102/53 08/14/20 06:00 105 20 90/54 (66) 78 08/14/20 06:00 90/54 08/14/20 06:00 106 90/54 08/14/20 05:00 99.0 98 20 118/62 (80) 87 08/14/20 05:00 118/62 08/14/20 04:00 Mechanical Ventilator 08/14/20 04:00 98 18 113/59 (77) 83 08/14/20 04:00 98 08/14/20 04:00 113/59 08/14/20 04:00 100 08/14/20 03:41 99 20 100 08/14/20 03:00 96 19 109/55 (73) 86 08/14/20 03:00 109/55 08/14/20 02:00 94 19 106/61 (76) 85 08/14/20 02:00 106/61 08/14/20 01:00 99/57 08/14/20 01:00 91 22 99/57 (71) 84 08/14/20 00:00 91 08/14/20 00:00 98.3 92 20 101/60 (74) 84 08/14/20 00:00 100 08/14/20 00:00 101/60 08/14/20 00:00 Mechanical Ventilator 08/13/20 23:45 93 19 100 08/13/20 23:00 91/48 08/13/20 23:00 91 18 91/48 (62) 78 08/13/20 22:00 94/46 08/13/20 22:00 88 94/46 08/13/20 22:00 89 18 94/46 (62) 75 08/13/20 21:00 86 17 91/44 (60) 65 08/13/20 21:00 91/44 08/13/20 20:00 Mechanical Ventilator 08/13/20 20:00 93/50 08/13/20 20:00 79 08/13/20 20:00 100 08/13/20 20:00 97.9 75 17 93/50 (64) 78 08/13/20 19:46 81 16 100 08/13/20 19:00 75 17 93/50 (64) 78 08/13/20 19:00 93/50 08/13/20 18:00 83 18 119/65 (83) 86 08/13/20 18:00 119/65 08/13/20 17:00 69 16 87/46 (60) 44 08/13/20 17:00 87/46 08/13/20 16:00 63 08/13/20 16:00 98.9 63 16 82/44 (57) 65 08/13/20 16:00 100 08/13/20 16:00 82/44 08/13/20 16:00 Mechanical Ventilator 08/13/20 15:15 84 16 100 08/13/20 15:00 124/74 08/13/20 15:00 84 16 124/74 (91) 85 08/13/20 14:30 86 16 127/75 (92) 86 08/13/20 14:00 132/75 08/13/20 14:00 86 17 137/76 (96) 88 08/13/20 13:01 86 128/73 08/13/20 13:00 128/73 08/13/20 13:00 85 16 128/73 (91) 86 08/13/20 12:00 98.1 89 16 133/75 (94) 86 08/13/20 12:00 133/75 08/13/20 12:00 83 08/13/20 12:00 Mechanical Ventilator 08/13/20 12:00 100 08/13/20 11:15 84 16 100 08/13/20 11:00 133/70 08/13/20 11:00 86 16 133/70 (91) 88 08/13/20 10:00 115/58 08/13/20 10:00 86 17 129/69 (89) 88 08/13/20 09:00 89 18 127/69 (88) 88 08/13/20 09:00 126/68 08/13/20 08:30 90 17 121/71 (88) 87 08/13/20 08:00 Mechanical Ventilator 08/13/20 08:00 100 08/13/20 08:00 129/67 08/13/20 08:00 86 08/13/20 08:00 98.6 91 18 123/67 (85) 88 Intake and Output 08/14/20 08/15/20 19:00 07:00 Intake Total 1811.75 ml 2202.9825 ml Output Total 550 ml 140 ml Balance 1261.75 ml 2062.9825 ml Free Water 100 ml IV Total 1191.75 ml 1582.9825 ml Tube Feeding 420 ml 420 ml Other 100 ml 200 ml Output Urine Total 550 ml 140 ml Labs Test 08/12/20 12:54 08/12/20 14:50 08/12/20 17:20 08/12/20 19:34 POC Whole Blood Glucose 317 MG/DL (74-106) 438 MG/DL (74-106) 443 MG/DL (74-106) Arterial Blood pH 7.202 (7.350-7.450) Arterial Blood Partial Pressure CO2 78.4 mmHg (35.0-45.0) Arterial Blood Partial Pressure O2 27.7 mmHg (75.0-100.0) Arterial Blood HCO3 30.1 mmol/L (22.0-26.0) Arterial Blood Oxygen Saturation 51.4 % (95-100) Arterial Blood Base Excess 0.3 (-2-2) Mehdi Test Positive Test 08/12/20 20:05 08/12/20 21:33 08/12/20 23:23 08/13/20 01:27 Sodium Level 131 MMOL/L (136-145) Potassium Level 5.3 MMOL/L (3.5-5.1) Chloride Level 94 MMOL/L (98-107) Carbon Dioxide Level 29 MMOL/L (21-32) Anion Gap 8 mmol/L (5-15) Blood Urea Nitrogen 108 mg/dL (7-18) Creatinine 4.1 MG/DL (0.55-1.30) Estimat Glomerular Filtration Rate 14.7 mL/min (>60) Glucose Level 460 MG/DL (74-106) Calcium Level 8.0 MG/DL (8.5-10.1) POC Whole Blood Glucose 432 MG/DL (74-106) 372 MG/DL (74-106) Test 08/13/20 03:23 08/13/20 04:35 08/13/20 05:25 08/13/20 13:25 White Blood Count 24.0 K/UL (4.8-10.8) Red Blood Count 3.13 M/UL (4.70-6.10) Hemoglobin 10.2 G/DL (14.2-18.0) Hematocrit 29.8 % (42.0-52.0) Mean Corpuscular Volume 95 FL (80-99) Mean Corpuscular Hemoglobin 32.5 PG (27.0-31.0) Mean Corpuscular Hemoglobin Concent 34.1 G/DL (32.0-36.0) Red Cell Distribution Width 11.5 % (11.6-14.8) Platelet Count 153 K/UL (150-450) Mean Platelet Volume 8.0 FL (6.5-10.1) Neutrophils (%) (Auto) % (45.0-75.0) Lymphocytes (%) (Auto) % (20.0-45.0) Monocytes (%) (Auto) % (1.0-10.0) Eosinophils (%) (Auto) % (0.0-3.0) Basophils (%) (Auto) % (0.0-2.0) Differential Total Cells Counted 100 Neutrophils % (Manual) 89 % (45-75) Lymphocytes % (Manual) 3 % (20-45) Monocytes % (Manual) 4 % (1-10) Eosinophils % (Manual) 1 % (0-3) Basophils % (Manual) 0 % (0-2) Myelocytes % 3 % (0-0) Band Neutrophils 0 % (0-8) Platelet Estimate Adequate Platelet Morphology Normal Hypochromasia 1+ Sodium Level 133 MMOL/L (136-145) Potassium Level 4.6 MMOL/L (3.5-5.1) Chloride Level 97 MMOL/L (98-107) Carbon Dioxide Level 31 MMOL/L (21-32) Anion Gap 5 mmol/L (5-15) Blood Urea Nitrogen 104 mg/dL (7-18) Creatinine 4.0 MG/DL (0.55-1.30) Estimat Glomerular Filtration Rate 15.1 mL/min (>60) Glucose Level 213 MG/DL (74-106) Calcium Level 7.9 MG/DL (8.5-10.1) Phosphorus Level 5.9 MG/DL (2.5-4.9) Magnesium Level 2.8 MG/DL (1.8-2.4) Total Bilirubin 0.4 MG/DL (0.2-1.0) Aspartate Amino Transf (AST/SGOT) 370 U/L (15-37) Alanine Aminotransferase (ALT/SGPT) 62 U/L (12-78) Alkaline Phosphatase 145 U/L (46-116) Total Protein 5.2 G/DL (6.4-8.2) Albumin 2.1 G/DL (3.4-5.0) Globulin 3.1 g/dL Albumin/Globulin Ratio 0.7 (1.0-2.7) POC Whole Blood Glucose 213 MG/DL (74-106) 97 MG/DL (74-106) Test 08/13/20 15:26 08/13/20 17:41 08/13/20 19:50 08/14/20 01:35 POC Whole Blood Glucose 96 MG/DL (74-106) 128 MG/DL (74-106) 140 MG/DL (74-106) 156 MG/DL (74-106) Test 08/14/20 04:25 08/14/20 09:20 08/14/20 10:14 08/14/20 12:03 White Blood Count 25.1 K/UL (4.8-10.8) Red Blood Count 2.96 M/UL (4.70-6.10) Hemoglobin 9.6 G/DL (14.2-18.0) Hematocrit 28.6 % (42.0-52.0) Mean Corpuscular Volume 96 FL (80-99) Mean Corpuscular Hemoglobin 32.5 PG (27.0-31.0) Mean Corpuscular Hemoglobin Concent 33.7 G/DL (32.0-36.0) Red Cell Distribution Width 12.2 % (11.6-14.8) Platelet Count 168 K/UL (150-450) Mean Platelet Volume 8.5 FL (6.5-10.1) Neutrophils (%) (Auto) % (45.0-75.0) Lymphocytes (%) (Auto) % (20.0-45.0) Monocytes (%) (Auto) % (1.0-10.0) Eosinophils (%) (Auto) % (0.0-3.0) Basophils (%) (Auto) % (0.0-2.0) Differential Total Cells Counted 100 Neutrophils % (Manual) 91 % (45-75) Lymphocytes % (Manual) 5 % (20-45) Monocytes % (Manual) 4 % (1-10) Eosinophils % (Manual) 0 % (0-3) Basophils % (Manual) 0 % (0-2) Band Neutrophils 0 % (0-8) Platelet Estimate Adequate Platelet Morphology Normal Hypochromasia 1+ Anisocytosis 1+ Sodium Level 135 MMOL/L (136-145) Potassium Level 5.2 MMOL/L (3.5-5.1) Chloride Level 99 MMOL/L (98-107) Carbon Dioxide Level 29 MMOL/L (21-32) Anion Gap 7 mmol/L (5-15) Blood Urea Nitrogen 123 mg/dL (7-18) Creatinine 4.3 MG/DL (0.55-1.30) Estimat Glomerular Filtration Rate 13.9 mL/min (>60) Glucose Level 138 MG/DL (74-106) Uric Acid 8.3 MG/DL (2.6-7.2) Calcium Level 7.8 MG/DL (8.5-10.1) Phosphorus Level 8.0 MG/DL (2.5-4.9) Magnesium Level 2.9 MG/DL (1.8-2.4) Total Bilirubin 0.3 MG/DL (0.2-1.0) Aspartate Amino Transf (AST/SGOT) 345 U/L (15-37) Alanine Aminotransferase (ALT/SGPT) 50 U/L (12-78) Alkaline Phosphatase 128 U/L (46-116) C-Reactive Protein, Quantitative 2.5 mg/dL (0.00-0.90) Pro-B-Type Natriuretic Peptide 38839 pg/mL (0-125) Total Protein 4.9 G/DL (6.4-8.2) Albumin 2.2 G/DL (3.4-5.0) Globulin 2.7 g/dL Albumin/Globulin Ratio 0.8 (1.0-2.7) POC Whole Blood Glucose 146 MG/DL (74-106) Test 08/14/20 15:46 08/14/20 16:32 08/14/20 17:03 08/14/20 19:55 POC Whole Blood Glucose 135 MG/DL (74-106) 136 MG/DL (74-106) Test 08/14/20 22:13 08/14/20 23:48 08/15/20 01:51 08/15/20 03:55 POC Whole Blood Glucose 199 MG/DL (74-106) Test 08/15/20 04:00 White Blood Count 35.3 K/UL (4.8-10.8) Red Blood Count 3.40 M/UL (4.70-6.10) Hemoglobin 10.7 G/DL (14.2-18.0) Hematocrit 34.2 % (42.0-52.0) Mean Corpuscular Volume 100 FL (80-99) Mean Corpuscular Hemoglobin 31.3 PG (27.0-31.0) Mean Corpuscular Hemoglobin Concent 31.2 G/DL (32.0-36.0) Red Cell Distribution Width 13.0 % (11.6-14.8) Platelet Count 294 K/UL (150-450) Mean Platelet Volume 8.5 FL (6.5-10.1) Neutrophils (%) (Auto) % (45.0-75.0) Lymphocytes (%) (Auto) % (20.0-45.0) Monocytes (%) (Auto) % (1.0-10.0) Eosinophils (%) (Auto) % (0.0-3.0) Basophils (%) (Auto) % (0.0-2.0) Sodium Level 139 MMOL/L (136-145) Potassium Level 5.6 MMOL/L (3.5-5.1) Chloride Level 102 MMOL/L (98-107) Carbon Dioxide Level 27 MMOL/L (21-32) Anion Gap 10 mmol/L (5-15) Blood Urea Nitrogen 96 mg/dL (7-18) Creatinine 4.1 MG/DL (0.55-1.30) Estimat Glomerular Filtration Rate 14.7 mL/min (>60) Glucose Level 169 MG/DL (74-106) Calcium Level 7.9 MG/DL (8.5-10.1) Phosphorus Level 8.5 MG/DL (2.5-4.9) Magnesium Level 2.8 MG/DL (1.8-2.4) Total Bilirubin 0.3 MG/DL (0.2-1.0) Aspartate Amino Transf (AST/SGOT) 414 U/L (15-37) Alanine Aminotransferase (ALT/SGPT) 79 U/L (12-78) Alkaline Phosphatase 191 U/L (46-116) C-Reactive Protein, Quantitative 3.3 mg/dL (0.00-0.90) Pro-B-Type Natriuretic Peptide 42209 pg/mL (0-125) Total Protein 5.7 G/DL (6.4-8.2) Albumin 2.3 G/DL (3.4-5.0) Globulin 3.4 g/dL Albumin/Globulin Ratio 0.7 (1.0-2.7) Height (Feet): 5 Height (Inches): 5.00 Weight (Pounds): 160 Objective Vital Signs Vitals: reviewed, abnormal General Appearance: well appearing, mild distress HEENT: hearing grossly normal, moist mucus membranes Neck: full range of motion, supple Respiratory: ++vent Cardiovascular: normal peripheral pulses, regular rate, rhythm, no murmur Gastrointestinal: non tender, soft, non-distended, no guarding Neurologic: alert, oriented x3, no focal defects Skin: normal color, warm/dry Robin Ornelas MD Aug 15, 2020 07:37
[2020-08-15] MEDS: Pantoprazole Inj IVP SCH (08:11)
[2020-08-15] MEDS: Docusate 100mg/10ml Liq GT SCH ×2 (08:11→20:23)
[2020-08-15] MEDS: Solu-MEDROL 125mg Inj IVP SCH ×2 (08:12→20:23)
[2020-08-15] MEDS: Vitamin D 1000 units Tab GT SCH (08:12)
[2020-08-15] MEDS: Enoxaparin 30mg Inj SUBQ SCH (08:13)
[2020-08-15] MEDS ORDERED: Sodium Polystyrene Sulfonate 15gm Powder NG SCH (09:00)
--- NOTE | 2020-08-15 10:00 | NUR ---
NURSE NOTES: Dr Bains at bedside,updated re pt's condition.no orders given.
--- NOTE | 2020-08-15 10:08 | General Progress Note ---
Subjective Constitutional: Reports: weakness Allergies: Coded Allergies: No Known Allergies (Unverified , 07/29/20) All Systems: reviewed and negative except above Subjective intubated sedated in icu Objective Last 24 Hour Vital Signs Date Time Temp Pulse Resp B/P (MAP) Pulse Ox O2 Delivery O2 Flow Rate FiO2 08/15/20 09:00 119 24 132/72 (92) 70 08/15/20 09:00 132/72 08/15/20 08:00 100 08/15/20 08:00 121/66 08/15/20 08:00 119 08/15/20 08:00 98.9 119 20 121/66 (84) 69 08/15/20 08:00 Mechanical Ventilator 08/15/20 07:00 120 23 123/69 (87) 69 08/15/20 07:00 123/69 08/15/20 06:00 116 20 98/47 (64) 66 08/15/20 06:00 116 98/47 08/15/20 06:00 98/47 08/15/20 05:02 116/69 08/15/20 05:00 116 16 116/69 (85) 65 08/15/20 04:00 100.2 121 19 117/58 (77) 63 08/15/20 04:00 Mechanical Ventilator 08/15/20 04:00 123 08/15/20 04:00 100 08/15/20 04:00 117/58 08/15/20 03:00 122 16 113/58 (76) 64 08/15/20 03:00 113/58 08/15/20 02:00 124 17 113/59 (77) 52 08/15/20 02:00 113/59 08/15/20 01:00 112 16 86/52 (63) 64 08/15/20 01:00 86/52 08/15/20 00:22 111 16 100 08/15/20 00:00 117 08/15/20 00:00 91/47 08/15/20 00:00 101.5 114 16 91/47 (62) 67 08/15/20 00:00 Mechanical Ventilator 08/14/20 23:00 116 21 113/54 (73) 69 08/14/20 23:00 113/54 08/14/20 22:00 114 20 95/55 (68) 75 08/14/20 22:00 114 95/55 08/14/20 22:00 95/55 08/14/20 21:00 120 20 102/62 (75) 71 08/14/20 21:00 102/60 08/14/20 20:15 95 16 91/46 (61) 76 08/14/20 20:15 91/46 08/14/20 20:10 98 17 86/45 (59) 76 08/14/20 20:10 86/45 08/14/20 20:05 87/42 08/14/20 20:05 102 18 87/42 (57) 75 08/14/20 20:00 100 08/14/20 20:00 97.9 94 16 85/45 (58) 66 08/14/20 20:00 85/45 08/14/20 20:00 100 08/14/20 20:00 Mechanical Ventilator 08/14/20 19:11 78 16 100 08/14/20 19:00 110 16 97/50 (66) 70 08/14/20 19:00 97/50 08/14/20 18:00 98/49 08/14/20 18:00 107 16 98/49 (65) 79 08/14/20 17:00 112 19 112/52 (72) 79 08/14/20 17:00 112/55 08/14/20 16:00 112 08/14/20 16:00 113/56 08/14/20 16:00 100 08/14/20 16:00 98.9 108 18 117/54 (75) 84 08/14/20 16:00 Mechanical Ventilator 08/14/20 15:35 104 16 100 08/14/20 15:00 111 19 152/82 (105) 84 08/14/20 15:00 126/58 08/14/20 14:32 69/27 08/14/20 14:00 112 19 141/64 (89) 83 08/14/20 14:00 112 138/62 08/14/20 13:07 114 19 124/52 (76) 57 08/14/20 13:00 124/52 08/14/20 12:00 113 08/14/20 12:00 99.0 106 21 86/51 (63) 80 08/14/20 12:00 100 08/14/20 12:00 86/51 08/14/20 12:00 Mechanical Ventilator 08/14/20 11:35 103 16 100 08/14/20 11:00 121/70 08/14/20 11:00 103 20 121/70 (87) 80 Intake and Output 08/14/20 08/15/20 19:00 07:00 Intake Total 1811.75 ml 2202.9825 ml Output Total 550 ml 140 ml Balance 1261.75 ml 2062.9825 ml Free Water 100 ml IV Total 1191.75 ml 1582.9825 ml Tube Feeding 420 ml 420 ml Other 100 ml 200 ml Output Urine Total 550 ml 140 ml Laboratory Tests 08/14/20 10:14: POC Whole Blood Glucose [Pending] 08/14/20 12:03: POC Whole Blood Glucose 146H 08/14/20 15:46: POC Whole Blood Glucose 135H 08/14/20 16:32: POC Whole Blood Glucose [Pending] 08/14/20 17:03: POC Whole Blood Glucose 136H 08/14/20 19:55: POC Whole Blood Glucose [Pending] 08/14/20 22:13: POC Whole Blood Glucose [Pending] 08/14/20 23:48: POC Whole Blood Glucose [Pending] 08/15/20 01:51: POC Whole Blood Glucose 199H 08/15/20 03:55: POC Whole Blood Glucose [Pending] 08/15/20 04:00: White Blood Count 35.3*H, Red Blood Count 3.40L, Hemoglobin 10.7L, Hematocrit 34.2L, Mean Corpuscular Volume 100H, Mean Corpuscular Hemoglobin 31.3H, Mean Corpuscular Hemoglobin Concent 31.2L, Red Cell Distribution Width 13.0, Platelet Count 294#, Mean Platelet Volume 8.5, Neutrophils (%) (Auto) , Lymphocytes (%) (Auto) , Monocytes (%) (Auto) , Eosinophils (%) (Auto) , Basophils (%) (Auto) , Differential Total Cells Counted 100, Neutrophils % (Manual) 85H, Lymphocytes % (Manual) 3L, Monocytes % (Manual) 7, Eosinophils % (Manual) 0, Basophils % (Manual) 0, Myelocytes % 5H, Band Neutrophils 0, Nucleated Red Blood Cells 2, Platelet Estimate Adequate, Platelet Morphology Normal, Polychromasia 1+, Hypochromasia 1+, Macrocytosis 1+, Sodium Level 139, Potassium Level 5.6H, Chloride Level 102, Carbon Dioxide Level 27, Anion Gap 10, Blood Urea Nitrogen 96H, Creatinine 4.1H, Estimat Glomerular Filtration Rate 14.7, Glucose Level 169H, Calcium Level 7.9L, Phosphorus Level 8.5H, Magnesium Level 2.8H, Total Bilirubin 0.3, Aspartate Amino Transf (AST/SGOT) 414H, Alanine Aminotransferase (ALT/SGPT) 79H, Alkaline Phosphatase 191H, C-Reactive Protein, Quantitative 3.3H , Pro-B-Type Natriuretic Peptide 22956G, Total Protein 5.7L, Albumin 2.3L, Globulin 3.4, Albumin/Globulin Ratio 0.7L Height (Feet): 5 Height (Inches): 5.00 Weight (Pounds): 160 General Appearance: lethargic EENT: normal ENT inspection Neck: normal alignment Cardiovascular: normal peripheral pulses, normal rate, regular rhythm Respiratory/Chest: chest wall non-tender, lungs clear, normal breath sounds Abdomen: normal bowel sounds, non tender, soft Extremities: normal inspection Edema: no edema noted Arm (L), no edema noted Arm (R), no edema noted Leg (L), no edema noted Leg (R), no edema noted Pedal (L), no edema noted Pedal (R), no edema noted Generalized Neurologic: motor weakness Skin: normal pigmentation, warm/dry Assessment/Plan Problem List: (1) Hypoxia ICD Codes: R09.02 - Hypoxemia SNOMED: 392614739 (2) Bilateral pneumonia ICD Codes: J18.9 - Pneumonia, unspecified organism SNOMED: 039882283, 998493188 (3) Acute respiratory failure with hypoxia ICD Codes: J96.01 - Acute respiratory failure with hypoxia SNOMED: 17504843, 141434475 (4) Bradycardia ICD Codes: R00.1 - Bradycardia, unspecified SNOMED: 02017171 (5) Malnutrition ICD Codes: E46 - Unspecified protein-calorie malnutrition SNOMED: 57219004 Status: unchanged Assessment/Plan: o2 pulm tx abx pt diet cardio f/u cbc bmp am ThomasRicoRobertdmitry GarciaCharlene DO Aug 15, 2020 10:08
[2020-08-15] MEDS: cefTRIAXone 1 GM in NS 55 ML IVPB SCH (10:18)
--- NOTE | 2020-08-15 10:30 | NUR ---
NURSE NOTES: Family member daughter in law Amanda,updated re pt's status,informed re pt's comatose condition,would like to speak with the Neurologist to confirm pt's brain status per result of EEG.
--- NOTE | 2020-08-15 10:59 | Surgery Progress Note ---
Surgery Progress Note Subjective Symptoms: worse Additional Comments declining peep 8 fi02 100% sat in the 70's Objective Last 24 Hour Vital Signs Date Time Temp Pulse Resp B/P (MAP) Pulse Ox O2 Delivery O2 Flow Rate FiO2 08/15/20 10:00 109/64 08/15/20 10:00 119 24 144/77 (99) 74 08/15/20 09:00 119 24 132/72 (92) 70 08/15/20 09:00 132/72 08/15/20 08:00 100 08/15/20 08:00 121/66 08/15/20 08:00 119 08/15/20 08:00 98.9 119 20 121/66 (84) 69 08/15/20 08:00 Mechanical Ventilator 08/15/20 07:00 120 23 123/69 (87) 69 08/15/20 07:00 123/69 08/15/20 06:00 116 20 98/47 (64) 66 08/15/20 06:00 116 98/47 08/15/20 06:00 98/47 08/15/20 05:02 116/69 08/15/20 05:00 116 16 116/69 (85) 65 08/15/20 04:00 100.2 121 19 117/58 (77) 63 08/15/20 04:00 Mechanical Ventilator 08/15/20 04:00 123 08/15/20 04:00 100 08/15/20 04:00 117/58 08/15/20 03:00 122 16 113/58 (76) 64 08/15/20 03:00 113/58 08/15/20 02:00 124 17 113/59 (77) 52 08/15/20 02:00 113/59 08/15/20 01:00 112 16 86/52 (63) 64 08/15/20 01:00 86/52 08/15/20 00:22 111 16 100 08/15/20 00:00 117 08/15/20 00:00 91/47 08/15/20 00:00 101.5 114 16 91/47 (62) 67 08/15/20 00:00 Mechanical Ventilator 08/14/20 23:00 116 21 113/54 (73) 69 08/14/20 23:00 113/54 08/14/20 22:00 114 20 95/55 (68) 75 08/14/20 22:00 114 95/55 08/14/20 22:00 95/55 08/14/20 21:00 120 20 102/62 (75) 71 08/14/20 21:00 102/60 08/14/20 20:15 95 16 91/46 (61) 76 08/14/20 20:15 91/46 08/14/20 20:10 98 17 86/45 (59) 76 08/14/20 20:10 86/45 08/14/20 20:05 87/42 08/14/20 20:05 102 18 87/42 (57) 75 08/14/20 20:00 100 08/14/20 20:00 97.9 94 16 85/45 (58) 66 08/14/20 20:00 85/45 08/14/20 20:00 100 08/14/20 20:00 Mechanical Ventilator 08/14/20 19:11 78 16 100 08/14/20 19:00 110 16 97/50 (66) 70 08/14/20 19:00 97/50 08/14/20 18:00 98/49 08/14/20 18:00 107 16 98/49 (65) 79 08/14/20 17:00 112 19 112/52 (72) 79 08/14/20 17:00 112/55 08/14/20 16:00 112 08/14/20 16:00 113/56 08/14/20 16:00 100 08/14/20 16:00 98.9 108 18 117/54 (75) 84 08/14/20 16:00 Mechanical Ventilator 08/14/20 15:35 104 16 100 08/14/20 15:00 111 19 152/82 (105) 84 08/14/20 15:00 126/58 08/14/20 14:32 69/27 08/14/20 14:00 112 19 141/64 (89) 83 08/14/20 14:00 112 138/62 08/14/20 13:07 114 19 124/52 (76) 57 08/14/20 13:00 124/52 08/14/20 12:00 113 08/14/20 12:00 99.0 106 21 86/51 (63) 80 08/14/20 12:00 100 08/14/20 12:00 86/51 08/14/20 12:00 Mechanical Ventilator 08/14/20 11:35 103 16 100 08/14/20 11:00 121/70 08/14/20 11:00 103 20 121/70 (87) 80 I&O Intake and Output 08/14/20 08/15/20 19:00 07:00 Intake Total 1811.75 ml 2202.9825 ml Output Total 550 ml 140 ml Balance 1261.75 ml 2062.9825 ml Free Water 100 ml IV Total 1191.75 ml 1582.9825 ml Tube Feeding 420 ml 420 ml Other 100 ml 200 ml Output Urine Total 550 ml 140 ml Dressing: saturated Cardiovascular: RSR Respiratory: decreased breath sounds Abdomen: soft, non-tender, present bowel sounds, decreased bowel sounds Extremities: edema, no tenderness, no cyanosis Laboratory Tests Test 08/14/20 12:03 08/14/20 15:46 08/14/20 16:32 08/14/20 17:03 POC Whole Blood Glucose 146 MG/DL (74-106) H 135 MG/DL (74-106) H Pending 136 MG/DL (74-106) H Test 08/14/20 19:55 08/14/20 22:13 08/14/20 23:48 08/15/20 01:51 POC Whole Blood Glucose Pending Pending Pending 199 MG/DL (74-106) H Test 08/15/20 03:55 08/15/20 04:00 POC Whole Blood Glucose Pending White Blood Count 35.3 K/UL (4.8-10.8) *H Red Blood Count 3.40 M/UL (4.70-6.10) L Hemoglobin 10.7 G/DL (14.2-18.0) L Hematocrit 34.2 % (42.0-52.0) L Mean Corpuscular Volume 100 FL (80-99) H Mean Corpuscular Hemoglobin 31.3 PG (27.0-31.0) H Mean Corpuscular Hemoglobin Concent 31.2 G/DL (32.0-36.0) L Red Cell Distribution Width 13.0 % (11.6-14.8) Platelet Count 294 K/UL (150-450) # Mean Platelet Volume 8.5 FL (6.5-10.1) Neutrophils (%) (Auto) % (45.0-75.0) Lymphocytes (%) (Auto) % (20.0-45.0) Monocytes (%) (Auto) % (1.0-10.0) Eosinophils (%) (Auto) % (0.0-3.0) Basophils (%) (Auto) % (0.0-2.0) Differential Total Cells Counted 100 Neutrophils % (Manual) 85 % (45-75) H Lymphocytes % (Manual) 3 % (20-45) L Monocytes % (Manual) 7 % (1-10) Eosinophils % (Manual) 0 % (0-3) Basophils % (Manual) 0 % (0-2) Myelocytes % 5 % (0-0) H Band Neutrophils 0 % (0-8) Nucleated Red Blood Cells 2 /100 WBC Platelet Estimate Adequate Platelet Morphology Normal Polychromasia 1+ Hypochromasia 1+ Macrocytosis 1+ Sodium Level 139 MMOL/L (136-145) Potassium Level 5.6 MMOL/L (3.5-5.1) H Chloride Level 102 MMOL/L (98-107) Carbon Dioxide Level 27 MMOL/L (21-32) Anion Gap 10 mmol/L (5-15) Blood Urea Nitrogen 96 mg/dL (7-18) H Creatinine 4.1 MG/DL (0.55-1.30) H Estimat Glomerular Filtration Rate 14.7 mL/min (>60) Glucose Level 169 MG/DL (74-106) H Calcium Level 7.9 MG/DL (8.5-10.1) L Phosphorus Level 8.5 MG/DL (2.5-4.9) H Magnesium Level 2.8 MG/DL (1.8-2.4) H Total Bilirubin 0.3 MG/DL (0.2-1.0) Aspartate Amino Transf (AST/SGOT) 414 U/L (15-37) H Alanine Aminotransferase (ALT/SGPT) 79 U/L (12-78) H Alkaline Phosphatase 191 U/L (46-116) H C-Reactive Protein, Quantitative 3.3 mg/dL (0.00-0.90) H Pro-B-Type Natriuretic Peptide 14609 pg/mL (0-125) H Total Protein 5.7 G/DL (6.4-8.2) L Albumin 2.3 G/DL (3.4-5.0) L Globulin 3.4 g/dL Albumin/Globulin Ratio 0.7 (1.0-2.7) L Plan Problems: (1) Hypoxia (2) Bilateral pneumonia (3) Acute respiratory failure with hypoxia Assessment & Plan: ards covid negative as per pulm id input appreciated abd pain likely cramping indigestion from ill ness ppi ordered okay for diet monitor intake am labs will follow with exam and recs acute decline intubated in ICU on vent liver insufficiency acute hepatic in sufficiency renal insufficiency no acute surgical intervention needs resuscitation meds reviewed (4) Bradycardia (5) Malnutrition Assessment & Plan: DAILY ESTIMATED NEEDS: Needs based on Criticct care 64.5kg abw 22-28 kcals/kg 7976-9158 total kcals 1.2-2 g protein/kg 77-129 g total protein 25-30 mL/kg 9639-5502 total fluid mLs NUTRITION DIAGNOSIS: Altered nutrition related lab values related to clinical status as evidenced by elev LD(665), elev WBC(trending down 17.7), elev BG(132-176), elevated lytes(K, phos, mg), elev renal labs (BUN73, creat 3.2), elev LFT's ENTERAL NUTRITION RECOMMENDATIONS: As medically able, rec non oral feeds: NEPRO @35ml/hr x24 hrs to provide 840ml, 1512 kcal, 68g pro, 611ml free H2O - With hemodynamic stability, rec OGt feeds to meet est needs. - Start Nepro @15ml/hr for 6 hrs, advance as tolerated 10ml/hr q4-6 hrs to goal - Flush per MD. HOB over 30 degrees - When tolerating TF at goal, add Prosource 1 pack daily to better meet est pro needs. ADDITIONAL RECOMMENDATIONS: 1) recalibrate bed scale wt for accurate CBW 2) Monitor BG, need for NISS 3) TF recs as above when stable for feeds . (6) Shock liver Assessment & Plan: worsening lft's likely hydration resuscitation trend labs improving (7) ERIKA (acute kidney injury) Vern Quevedo Aug 15, 2020 10:59
--- NOTE | 2020-08-15 11:00 | NUR ---
NURSE NOTES: Dr Sinclair called and updated re pt's blood sugar,ordered to discontinue Insulin drip and start on Sliding scale ,blood sugar check Q 4 hrs.
--- NOTE | 2020-08-15 11:20 | Pulmonology Progress Note ---
Subjective ROS Limited/Unobtainable: Yes Interval Events: Intubated 08/01/20 Constitutional: Reports: fever, other - Wt=971.4 in am HEENT: Repors: no symptoms Respiratory: Reports: no symptoms Cardiovascular: Reports: no symptoms Gastrointestinal/Abdominal: Reports: no symptoms Musculoskeletal: Denies: pain Allergies: Coded Allergies: No Known Allergies (Unverified , 07/29/20) All Systems: reviewed and negative except above Objective Last 24 Hour Vital Signs Date Time Temp Pulse Resp B/P (MAP) Pulse Ox O2 Delivery O2 Flow Rate FiO2 08/15/20 11:00 104/48 08/15/20 10:00 109/64 08/15/20 10:00 119 24 144/77 (99) 74 08/15/20 09:00 119 24 132/72 (92) 70 08/15/20 09:00 132/72 08/15/20 08:00 100 08/15/20 08:00 121/66 08/15/20 08:00 119 08/15/20 08:00 98.9 119 20 121/66 (84) 69 08/15/20 08:00 Mechanical Ventilator 08/15/20 07:00 120 23 123/69 (87) 69 08/15/20 07:00 123/69 08/15/20 06:00 116 20 98/47 (64) 66 08/15/20 06:00 116 98/47 08/15/20 06:00 98/47 08/15/20 05:02 116/69 08/15/20 05:00 116 16 116/69 (85) 65 08/15/20 04:00 100.2 121 19 117/58 (77) 63 08/15/20 04:00 Mechanical Ventilator 08/15/20 04:00 123 08/15/20 04:00 100 08/15/20 04:00 117/58 08/15/20 03:00 122 16 113/58 (76) 64 08/15/20 03:00 113/58 08/15/20 02:00 124 17 113/59 (77) 52 08/15/20 02:00 113/59 08/15/20 01:00 112 16 86/52 (63) 64 08/15/20 01:00 86/52 08/15/20 00:22 111 16 100 08/15/20 00:00 117 1/22/21 00:00 91/47 08/15/20 00:00 101.5 114 16 91/47 (62) 67 08/15/20 00:00 Mechanical Ventilator 08/14/20 23:00 116 21 113/54 (73) 69 08/14/20 23:00 113/54 08/14/20 22:00 114 20 95/55 (68) 75 08/14/20 22:00 114 95/55 08/14/20 22:00 95/55 08/14/20 21:00 120 20 102/62 (75) 71 08/14/20 21:00 102/60 08/14/20 20:15 95 16 91/46 (61) 76 08/14/20 20:15 91/46 08/14/20 20:10 98 17 86/45 (59) 76 08/14/20 20:10 86/45 08/14/20 20:05 87/42 08/14/20 20:05 102 18 87/42 (57) 75 08/14/20 20:00 100 08/14/20 20:00 97.9 94 16 85/45 (58) 66 08/14/20 20:00 85/45 08/14/20 20:00 100 08/14/20 20:00 Mechanical Ventilator 08/14/20 19:11 78 16 100 08/14/20 19:00 110 16 97/50 (66) 70 08/14/20 19:00 97/50 08/14/20 18:00 98/49 08/14/20 18:00 107 16 98/49 (65) 79 08/14/20 17:00 112 19 112/52 (72) 79 08/14/20 17:00 112/55 08/14/20 16:00 112 08/14/20 16:00 113/56 08/14/20 16:00 100 08/14/20 16:00 98.9 108 18 117/54 (75) 84 08/14/20 16:00 Mechanical Ventilator 08/14/20 15:35 104 16 100 08/14/20 15:00 111 19 152/82 (105) 84 08/14/20 15:00 126/58 08/14/20 14:32 69/27 08/14/20 14:00 112 19 141/64 (89) 83 08/14/20 14:00 112 138/62 08/14/20 13:07 114 19 124/52 (76) 57 08/14/20 13:00 124/52 08/14/20 12:00 113 08/14/20 12:00 99.0 106 21 86/51 (63) 80 08/14/20 12:00 100 08/14/20 12:00 86/51 08/14/20 12:00 Mechanical Ventilator 08/14/20 11:35 103 16 100 Intake and Output 08/14/20 08/15/20 19:00 07:00 Intake Total 1811.75 ml 2202.9825 ml Output Total 550 ml 140 ml Balance 1261.75 ml 2062.9825 ml Free Water 100 ml IV Total 1191.75 ml 1582.9825 ml Tube Feeding 420 ml 420 ml Other 100 ml 200 ml Output Urine Total 550 ml 140 ml General Appearance: no acute distress HEENT: normocephalic, atraumatic Respiratory: lungs clear Cardiovascular: normal rate, regular rhythm Abdomen: soft, non tender Laboratory Tests 08/14/20 12:03: POC Whole Blood Glucose 146H 08/14/20 15:46: POC Whole Blood Glucose 135H 08/14/20 16:32: POC Whole Blood Glucose [Pending] 08/14/20 17:03: POC Whole Blood Glucose 136H 08/14/20 19:55: POC Whole Blood Glucose [Pending] 08/14/20 22:13: POC Whole Blood Glucose [Pending] 08/14/20 23:48: POC Whole Blood Glucose [Pending] 08/15/20 01:51: POC Whole Blood Glucose 199H 08/15/20 03:55: POC Whole Blood Glucose [Pending] 08/15/20 04:00: White Blood Count 35.3*H, Red Blood Count 3.40L, Hemoglobin 10.7L, Hematocrit 34.2L, Mean Corpuscular Volume 100H, Mean Corpuscular Hemoglobin 31.3H, Mean Corpuscular Hemoglobin Concent 31.2L, Red Cell Distribution Width 13.0, Platelet Count 294#, Mean Platelet Volume 8.5, Neutrophils (%) (Auto) , Lymphocytes (%) (Auto) , Monocytes (%) (Auto) , Eosinophils (%) (Auto) , Basophils (%) (Auto) , Differential Total Cells Counted 100, Neutrophils % (Manual) 85H, Lymphocytes % (Manual) 3L, Monocytes % (Manual) 7, Eosinophils % (Manual) 0, Basophils % (Manual) 0, Myelocytes % 5H, Band Neutrophils 0, Nucleated Red Blood Cells 2, Platelet Estimate Adequate, Platelet Morphology Normal, Polychromasia 1+, Hypochromasia 1+, Macrocytosis 1+, Sodium Level 139, Potassium Level 5.6H, Chloride Level 102, Carbon Dioxide Level 27, Anion Gap 10, Blood Urea Nitrogen 96H, Creatinine 4.1H, Estimat Glomerular Filtration Rate 14.7, Glucose Level 169H, Calcium Level 7.9L, Phosphorus Level 8.5H, Magnesium Level 2.8H, Total Bilirubin 0.3, Aspartate Amino Transf (AST/SGOT) 414H, Alanine Aminotransferase (ALT/SGPT) 79H, Alkaline Phosphatase 191H, C-Reactive Protein, Quantitative 3.3H , Pro-B-Type Natriuretic Peptide 76014L, Total Protein 5.7L, Albumin 2.3L, Globulin 3.4, Albumin/Globulin Ratio 0.7L Current Medications Medications (Trade) Dose Ordered Sig/Fabiano Route PRN Reason Start Time Stop Time Status Last Admin Dose Admin Acetaminophen (Tylenol) 650 mg Q4H PRN NG Temp >100.5 08/03/20 04:15 09/02/20 04:14 08/15/20 00:50 Acetaminophen (Tylenol) 650 mg Q4H PRN RECTAL Temp >100.5 08/01/20 20:30 08/31/20 20:29 08/13/20 01:22 Albuterol Sulfate (Proventil MDI) 2 puff Q4H PRN INH Shortness of Breath 07/29/20 22:45 10/27/20 22:44 Ceftriaxone Sodium 1 gm/ Sodium Chloride 55 ml @ 110 mls/hr Q24H IVPB 08/13/20 10:00 08/20/20 09:59 08/15/20 10:18 Chlorhexidine Gluconate (Marisela-Hex 2%) 1 applic DAILY@2000 TOPIC 08/08/20 20:00 11/06/20 19:59 08/14/20 20:38 Clonidine HCl (Catapres Tab) 0.1 mg Q2H PRN ORAL SBP > 170mmHg 08/04/20 09:45 11/02/20 09:44 08/07/20 23:20 Dextrose (Dextrose 50%) 25 ml Q30M PRN IV HYPOGLYCEMIA 08/12/20 19:00 11/10/20 18:59 Dextrose (Dextrose 50%) 50 ml Q30M PRN IV HYPOGLYCEMIA 08/12/20 19:00 11/10/20 18:59 Diltiazem HCl (Cardizem Tab) 120 mg Q8HR GT 08/14/20 14:00 09/07/20 21:59 Docusate Sodium (Colace) 100 mg Q12HR GT 08/08/20 21:00 09/07/20 20:59 08/15/20 08:11 Enoxaparin Sodium (Lovenox) 30 mg DAILY SUBQ 08/02/20 10:00 10/31/20 09:59 08/15/20 08:13 Insulin Human (Reg)/Sodium Chloride 100 ml @ 0 mls/hr Q24H IV 08/12/20 23:45 11/10/20 23:44 08/15/20 04:34 Insulin Human Regular (NovoLIN R) 5 units PRN PRN IV BS 200-299 08/12/20 19:00 11/10/20 18:59 08/13/20 05:32 Insulin Human Regular (NovoLIN R) 10 units PRN PRN IV BS=>300 08/12/20 19:00 11/10/20 18:59 08/13/20 01:38 Methylprednisolone Sodium Succinate (Solu-MEDROL) 40 mg EVERY 12 HOURS IVP 08/12/20 09:09 11/02/20 12:29 08/15/20 08:12 Miscellaneous Medication (Insulin Rate Change) 1 ea PRN PRN MISC Per rx protocol 08/12/20 19:00 11/10/20 18:59 08/13/20 05:33 Norepinephrine Bitartrate 8 mg/ Sodium Chloride 500 ml @ 0 mls/hr Q24H PRN IV For hypotension 08/12/20 21:00 08/15/20 20:59 08/15/20 05:02 Pantoprazole (Protonix) 40 mg DAILY IVP 08/06/20 10:00 09/05/20 09:59 08/15/20 08:11 Polyethylene Glycol (Miralax) 17 gm BEDTIME ORAL 08/06/20 21:00 09/05/20 20:59 08/14/20 20:38 Sodium Chloride 1,000 ml @ 75 mls/hr [id number] IV 08/13/20 13:30 09/12/20 13:29 08/15/20 03:26 Vitamin D (Vitamin D) 5,000 unit DAILY GT 08/11/20 10:15 09/10/20 10:14 08/15/20 08:12 Assessment/Plan Assessment/Plan 1. Respiratory Failure - intubated 08/01/20 - oxygenating poorly; SaO2 85-65% - Continue PEEP 10 - continue 100% Fio2; - peak airway pressure approx 60 2. Hyponatremia - per primary MD 3. Hyperglycemia - BG control 5. Pneumonia - abx per ID - on dexamethasone (07/30-) - now on remdesivir per ID (08/01-) 6. COVID-19 rapid negative - COVID-19 PCR positive 7. Elevated inflammatory markers; ferritin, D-Dimer - likely secondary to #5 - On Lovenox Discussed with son Remains totally unresponsive; off all sedation Noted neurology eval On insulin gtt Has worsening of renal function Nephrology following Continue HD per renal Grave prognosis Milton Antonio MD Aug 15, 2020 11:20
--- NOTE | 2020-08-15 11:45 | General Progress Note ---
Subjective ROS Limited/Unobtainable: No Allergies: Coded Allergies: No Known Allergies (Unverified , 07/29/20) Objective Last 24 Hour Vital Signs Date Time Temp Pulse Resp B/P (MAP) Pulse Ox O2 Delivery O2 Flow Rate FiO2 08/15/20 11:00 104/48 08/15/20 10:00 109/64 08/15/20 10:00 119 24 144/77 (99) 74 08/15/20 09:00 119 24 132/72 (92) 70 08/15/20 09:00 132/72 08/15/20 08:00 100 08/15/20 08:00 121/66 08/15/20 08:00 119 08/15/20 08:00 98.9 119 20 121/66 (84) 69 08/15/20 08:00 Mechanical Ventilator 08/15/20 07:00 120 23 123/69 (87) 69 08/15/20 07:00 123/69 08/15/20 06:00 116 20 98/47 (64) 66 08/15/20 06:00 116 98/47 08/15/20 06:00 98/47 08/15/20 05:02 116/69 08/15/20 05:00 116 16 116/69 (85) 65 08/15/20 04:00 100.2 121 19 117/58 (77) 63 08/15/20 04:00 Mechanical Ventilator 08/15/20 04:00 123 08/15/20 04:00 100 08/15/20 04:00 117/58 08/15/20 03:00 122 16 113/58 (76) 64 08/15/20 03:00 113/58 08/15/20 02:00 124 17 113/59 (77) 52 08/15/20 02:00 113/59 08/15/20 01:00 112 16 86/52 (63) 64 08/15/20 01:00 86/52 08/15/20 00:22 111 16 100 08/15/20 00:00 117 08/15/20 00:00 91/47 08/15/20 00:00 101.5 114 16 91/47 (62) 67 08/15/20 00:00 Mechanical Ventilator 08/14/20 23:00 116 21 113/54 (73) 69 08/14/20 23:00 113/54 1/21/21 22:00 114 20 95/55 (68) 75 08/14/20 22:00 114 95/55 08/14/20 22:00 95/55 08/14/20 21:00 120 20 102/62 (75) 71 08/14/20 21:00 102/60 08/14/20 20:15 95 16 91/46 (61) 76 08/14/20 20:15 91/46 08/14/20 20:10 98 17 86/45 (59) 76 08/14/20 20:10 86/45 08/14/20 20:05 87/42 08/14/20 20:05 102 18 87/42 (57) 75 08/14/20 20:00 100 08/14/20 20:00 97.9 94 16 85/45 (58) 66 08/14/20 20:00 85/45 08/14/20 20:00 100 08/14/20 20:00 Mechanical Ventilator 08/14/20 19:11 78 16 100 08/14/20 19:00 110 16 97/50 (66) 70 08/14/20 19:00 97/50 08/14/20 18:00 98/49 08/14/20 18:00 107 16 98/49 (65) 79 08/14/20 17:00 112 19 112/52 (72) 79 08/14/20 17:00 112/55 08/14/20 16:00 112 08/14/20 16:00 113/56 08/14/20 16:00 100 08/14/20 16:00 98.9 108 18 117/54 (75) 84 08/14/20 16:00 Mechanical Ventilator 08/14/20 15:35 104 16 100 08/14/20 15:00 111 19 152/82 (105) 84 08/14/20 15:00 126/58 08/14/20 14:32 69/27 08/14/20 14:00 112 19 141/64 (89) 83 08/14/20 14:00 112 138/62 08/14/20 13:07 114 19 124/52 (76) 57 08/14/20 13:00 124/52 08/14/20 12:00 113 08/14/20 12:00 99.0 106 21 86/51 (63) 80 08/14/20 12:00 100 08/14/20 12:00 86/51 08/14/20 12:00 Mechanical Ventilator Intake and Output 08/14/20 08/15/20 19:00 07:00 Intake Total 1811.75 ml 2202.9825 ml Output Total 550 ml 140 ml Balance 1261.75 ml 2062.9825 ml Free Water 100 ml IV Total 1191.75 ml 1582.9825 ml Tube Feeding 420 ml 420 ml Other 100 ml 200 ml Output Urine Total 550 ml 140 ml Laboratory Tests 08/14/20 12:03: POC Whole Blood Glucose 146H 08/14/20 15:46: POC Whole Blood Glucose 135H 08/14/20 16:32: POC Whole Blood Glucose [Pending] 08/14/20 17:03: POC Whole Blood Glucose 136H 08/14/20 19:55: POC Whole Blood Glucose [Pending] 08/14/20 22:13: POC Whole Blood Glucose [Pending] 08/14/20 23:48: POC Whole Blood Glucose [Pending] 08/15/20 01:51: POC Whole Blood Glucose 199H 08/15/20 03:55: POC Whole Blood Glucose [Pending] 08/15/20 04:00: White Blood Count 35.3*H, Red Blood Count 3.40L, Hemoglobin 10.7L, Hematocrit 34.2L, Mean Corpuscular Volume 100H, Mean Corpuscular Hemoglobin 31.3H, Mean Corpuscular Hemoglobin Concent 31.2L, Red Cell Distribution Width 13.0, Platelet Count 294#, Mean Platelet Volume 8.5, Neutrophils (%) (Auto) , Lymphocytes (%) (Auto) , Monocytes (%) (Auto) , Eosinophils (%) (Auto) , Basophils (%) (Auto) , Differential Total Cells Counted 100, Neutrophils % (Manual) 85H, Lymphocytes % (Manual) 3L, Monocytes % (Manual) 7, Eosinophils % (Manual) 0, Basophils % (Manual) 0, Myelocytes % 5H, Band Neutrophils 0, Nucleated Red Blood Cells 2, Platelet Estimate Adequate, Platelet Morphology Normal, Polychromasia 1+, Hypochromasia 1+, Macrocytosis 1+, Sodium Level 139, Potassium Level 5.6H, Chloride Level 102, Carbon Dioxide Level 27, Anion Gap 10, Blood Urea Nitrogen 96H, Creatinine 4.1H, Estimat Glomerular Filtration Rate 14.7, Glucose Level 169H, Calcium Level 7.9L, Phosphorus Level 8.5H, Magnesium Level 2.8H, Total Bilirubin 0.3, Aspartate Amino Transf (AST/SGOT) 414H, Alanine Aminotransferase (ALT/SGPT) 79H, Alkaline Phosphatase 191H, C-Reactive Protein, Quantitative 3.3H , Pro-B-Type Natriuretic Peptide 41340G, Total Protein 5.7L, Albumin 2.3L, Globulin 3.4, Albumin/Globulin Ratio 0.7L Height (Feet): 5 Height (Inches): 5.00 Weight (Pounds): 160 General Appearance: no apparent distress EENT: normal ENT inspection Neck: supple Cardiovascular: normal rate Respiratory/Chest: decreased breath sounds Abdomen: normal bowel sounds, non tender, soft Extremities: non-tender Assessment/Plan Problem List: (1) Hypoxia ICD Codes: R09.02 - Hypoxemia SNOMED: 332092821 (2) Bilateral pneumonia ICD Codes: J18.9 - Pneumonia, unspecified organism SNOMED: 745102078, 765493986 (3) Acute respiratory failure with hypoxia ICD Codes: J96.01 - Acute respiratory failure with hypoxia SNOMED: 62172574, 204862645 (4) Bradycardia ICD Codes: R00.1 - Bradycardia, unspecified SNOMED: 51424566 (5) Malnutrition ICD Codes: E46 - Unspecified protein-calorie malnutrition SNOMED: 06187725 (6) Shock liver ICD Codes: K72.00 - Acute and subacute hepatic failure without coma SNOMED: 548932095 (7) ERIKA (acute kidney injury) ICD Codes: N17.9 - Acute kidney failure, unspecified SNOMED: 2100698, 08704879 Status: unchanged Assessment/Plan: NGTF covid care fu labs abx per ID shock liver>>>fu LFTS>>>improving bowel regimen poor prognosis will Enoch Beverly MD Aug 15, 2020 11:45
--- NOTE | 2020-08-15 11:48 | NUR ---
RD ASSESSMENT & RECOMMENDATIONS SEE CARE ACTIVITY FOR COMPLETE ASSESSMENT DAILY ESTIMATED NEEDS: Needs based on [facility] care+ HD 64.5kg abw 22-28 kcals/kg 7226-1405 total kcals 1.2-2 g protein/kg 77-129 g total protein 25-30 mL/kg 9212-3544 total fluid mLs NUTRITION DIAGNOSIS: Altered nutrition related lab values related to clinical status as evidenced by elev LD(877), elev WBC(35.3* trend up), elev BG(200's 300's-> 169, 138), elevated lytes(k, phos, mg), elev renal labs (BUN now 96, creat 4.1), now on HD, elev LFT's CURRENT TF: Nepro @ 35ml/hr x 24 hrs ENTERAL NUTRITION RECOMMENDATIONS: Nepro @ 35ml/hr x24 hrs + Prosource 1pkt QD to provide 840ml, 1512 kcal, 68 +11g pro, 611ml free H2O - Maintain current TF as tolerated - Add Prosource 1pkt daily to meet est protein needs - Flush per MD. HOB over 30 degrees ADDITIONAL RECOMMENDATIONS: 1) recalibrate bed scale wt for accurate CBW 2) Monitor lytes and renal fxn- now on HD, continue Nepro rec phos binders w/ continued elev phos 3) Rec bowel regimen-> now added 4) Monitor hemodynamic stability: now on NE @ 10mcg 5) Monitor BGs- improved, now on insulin drip .
--- NOTE | 2020-08-15 12:00 | NUR ---
NURSE NOTES: Pt with fever T100.6,Given Tylenol 650 mg per OGT,will continue to monitor pt temp.
--- NOTE | 2020-08-15 12:13 | Infectious Diseases Prog Note ---
Assessment/Plan Assessment/Plan antibiotics : ceftriaxone A 1. covid 19 pneumonia on 100 % Fi O2 with 74 % saturation 2. respiratory failure P 1. continue solumedrol 2. continue ceftriaxone 3. continue isolation 4. poor prognosis Subjective ROS Limited/Unobtainable: Yes Allergies: Coded Allergies: No Known Allergies (Unverified , 07/29/20) Objective Last 24 Hour Vital Signs Date Time Temp Pulse Resp B/P (MAP) Pulse Ox O2 Delivery O2 Flow Rate FiO2 08/15/20 11:00 104/48 08/15/20 10:00 109/64 08/15/20 10:00 119 24 144/77 (99) 74 08/15/20 09:00 119 24 132/72 (92) 70 08/15/20 09:00 132/72 08/15/20 08:00 100 08/15/20 08:00 121/66 08/15/20 08:00 119 08/15/20 08:00 98.9 119 20 121/66 (84) 69 08/15/20 08:00 Mechanical Ventilator 08/15/20 07:00 120 23 123/69 (87) 69 08/15/20 07:00 123/69 08/15/20 06:00 116 20 98/47 (64) 66 08/15/20 06:00 116 98/47 08/15/20 06:00 98/47 08/15/20 05:02 116/69 08/15/20 05:00 116 16 116/69 (85) 65 08/15/20 04:00 100.2 121 19 117/58 (77) 63 08/15/20 04:00 Mechanical Ventilator 08/15/20 04:00 123 08/15/20 04:00 100 08/15/20 04:00 117/58 08/15/20 03:00 122 16 113/58 (76) 64 08/15/20 03:00 113/58 08/15/20 02:00 124 17 113/59 (77) 52 08/15/20 02:00 113/59 08/15/20 01:00 112 16 86/52 (63) 64 08/15/20 01:00 86/52 08/15/20 00:22 111 16 100 08/15/20 00:00 117 08/15/20 00:00 91/47 08/15/20 00:00 101.5 114 16 91/47 (62) 67 08/15/20 00:00 Mechanical Ventilator 08/14/20 23:00 116 21 113/54 (73) 69 08/14/20 23:00 113/54 08/14/20 22:00 114 20 95/55 (68) 75 08/14/20 22:00 114 95/55 08/14/20 22:00 95/55 08/14/20 21:00 120 20 102/62 (75) 71 08/14/20 21:00 102/60 08/14/20 20:15 95 16 91/46 (61) 76 08/14/20 20:15 91/46 08/14/20 20:10 98 17 86/45 (59) 76 08/14/20 20:10 86/45 08/14/20 20:05 87/42 08/14/20 20:05 102 18 87/42 (57) 75 08/14/20 20:00 100 08/14/20 20:00 97.9 94 16 85/45 (58) 66 08/14/20 20:00 85/45 08/14/20 20:00 100 08/14/20 20:00 Mechanical Ventilator 08/14/20 19:11 78 16 100 08/14/20 19:00 110 16 97/50 (66) 70 08/14/20 19:00 97/50 08/14/20 18:00 98/49 08/14/20 18:00 107 16 98/49 (65) 79 08/14/20 17:00 112 19 112/52 (72) 79 08/14/20 17:00 112/55 08/14/20 16:00 112 08/14/20 16:00 113/56 08/14/20 16:00 100 08/14/20 16:00 98.9 108 18 117/54 (75) 84 08/14/20 16:00 Mechanical Ventilator 08/14/20 15:35 104 16 100 08/14/20 15:00 111 19 152/82 (105) 84 08/14/20 15:00 126/58 08/14/20 14:32 69/27 08/14/20 14:00 112 19 141/64 (89) 83 08/14/20 14:00 112 138/62 08/14/20 13:07 114 19 124/52 (76) 57 08/14/20 13:00 124/52 Height (Feet): 5 Height (Inches): 5.00 Weight (Pounds): 160 HEENT: other - intubated Laboratory Tests Test 08/14/20 15:46 08/14/20 16:32 08/14/20 17:03 08/14/20 19:55 POC Whole Blood Glucose 135 MG/DL (74-106) H Pending 136 MG/DL (74-106) H Pending Test 08/14/20 22:13 08/14/20 23:48 08/15/20 01:51 08/15/20 03:55 POC Whole Blood Glucose Pending Pending 199 MG/DL (74-106) H Pending Test 08/15/20 04:00 White Blood Count 35.3 K/UL (4.8-10.8) *H Red Blood Count 3.40 M/UL (4.70-6.10) L Hemoglobin 10.7 G/DL (14.2-18.0) L Hematocrit 34.2 % (42.0-52.0) L Mean Corpuscular Volume 100 FL (80-99) H Mean Corpuscular Hemoglobin 31.3 PG (27.0-31.0) H Mean Corpuscular Hemoglobin Concent 31.2 G/DL (32.0-36.0) L Red Cell Distribution Width 13.0 % (11.6-14.8) Platelet Count 294 K/UL (150-450) # Mean Platelet Volume 8.5 FL (6.5-10.1) Neutrophils (%) (Auto) % (45.0-75.0) Lymphocytes (%) (Auto) % (20.0-45.0) Monocytes (%) (Auto) % (1.0-10.0) Eosinophils (%) (Auto) % (0.0-3.0) Basophils (%) (Auto) % (0.0-2.0) Differential Total Cells Counted 100 Neutrophils % (Manual) 85 % (45-75) H Lymphocytes % (Manual) 3 % (20-45) L Monocytes % (Manual) 7 % (1-10) Eosinophils % (Manual) 0 % (0-3) Basophils % (Manual) 0 % (0-2) Myelocytes % 5 % (0-0) H Band Neutrophils 0 % (0-8) Nucleated Red Blood Cells 2 /100 WBC Platelet Estimate Adequate Platelet Morphology Normal Polychromasia 1+ Hypochromasia 1+ Macrocytosis 1+ Sodium Level 139 MMOL/L (136-145) Potassium Level 5.6 MMOL/L (3.5-5.1) H Chloride Level 102 MMOL/L (98-107) Carbon Dioxide Level 27 MMOL/L (21-32) Anion Gap 10 mmol/L (5-15) Blood Urea Nitrogen 96 mg/dL (7-18) H Creatinine 4.1 MG/DL (0.55-1.30) H Estimat Glomerular Filtration Rate 14.7 mL/min (>60) Glucose Level 169 MG/DL (74-106) H Calcium Level 7.9 MG/DL (8.5-10.1) L Phosphorus Level 8.5 MG/DL (2.5-4.9) H Magnesium Level 2.8 MG/DL (1.8-2.4) H Total Bilirubin 0.3 MG/DL (0.2-1.0) Aspartate Amino Transf (AST/SGOT) 414 U/L (15-37) H Alanine Aminotransferase (ALT/SGPT) 79 U/L (12-78) H Alkaline Phosphatase 191 U/L (46-116) H C-Reactive Protein, Quantitative 3.3 mg/dL (0.00-0.90) H Pro-B-Type Natriuretic Peptide 68709 pg/mL (0-125) H Total Protein 5.7 G/DL (6.4-8.2) L Albumin 2.3 G/DL (3.4-5.0) L Globulin 3.4 g/dL Albumin/Globulin Ratio 0.7 (1.0-2.7) L Current Medications Medications (Trade) Dose Ordered Sig/Fabiano Route PRN Reason Start Time Stop Time Status Last Admin Dose Admin Acetaminophen (Tylenol) 650 mg Q4H PRN NG Temp >100.5 08/03/20 04:15 09/02/20 04:14 08/15/20 00:50 Acetaminophen (Tylenol) 650 mg Q4H PRN RECTAL Temp >100.5 08/01/20 20:30 08/31/20 20:29 08/13/20 01:22 Albuterol Sulfate (Proventil MDI) 2 puff Q4H PRN INH Shortness of Breath 07/29/20 22:45 10/27/20 22:44 Ceftriaxone Sodium 1 gm/ Sodium Chloride 55 ml @ 110 mls/hr Q24H IVPB 08/13/20 10:00 08/20/20 09:59 08/15/20 10:18 Chlorhexidine Gluconate (Marisela-Hex 2%) 1 applic DAILY@2000 TOPIC 08/08/20 20:00 11/06/20 19:59 08/14/20 20:38 Clonidine HCl (Catapres Tab) 0.1 mg Q2H PRN ORAL SBP > 170mmHg 08/04/20 09:45 11/02/20 09:44 08/07/20 23:20 Dextrose (Dextrose 50%) 25 ml Q30M PRN IV Hypoglycemia 08/15/20 11:30 11/13/20 11:29 Dextrose (Dextrose 50%) 50 ml Q30M PRN IV Hypoglycemia 08/15/20 11:30 11/13/20 11:29 Diltiazem HCl (Cardizem Tab) 120 mg Q8HR GT 08/14/20 14:00 09/07/20 21:59 Docusate Sodium (Colace) 100 mg Q12HR GT 08/08/20 21:00 09/07/20 20:59 08/15/20 08:11 Enoxaparin Sodium (Lovenox) 30 mg DAILY SUBQ 08/02/20 10:00 10/31/20 09:59 08/15/20 08:13 Insulin Aspart (NovoLOG) EVERY 4 HOURS SUBQ 08/15/20 13:00 11/13/20 12:59 Insulin Aspart (NovoLOG) 10 units EVERY 4 HOURS SUBQ 08/15/20 13:00 11/13/20 12:59 Methylprednisolone Sodium Succinate (Solu-MEDROL) 40 mg EVERY 12 HOURS IVP 08/12/20 09:09 11/02/20 12:29 08/15/20 08:12 Miscellaneous Medication (Insulin Rate Change) 1 ea PRN PRN MISC Per rx protocol 08/12/20 19:00 11/10/20 18:59 08/13/20 05:33 Norepinephrine Bitartrate 8 mg/ Sodium Chloride 500 ml @ 0 mls/hr Q24H PRN IV For hypotension 08/12/20 21:00 08/15/20 20:59 08/15/20 05:02 Pantoprazole (Protonix) 40 mg DAILY IVP 08/06/20 10:00 09/05/20 09:59 08/15/20 08:11 Polyethylene Glycol (Miralax) 17 gm BEDTIME ORAL 08/06/20 21:00 09/05/20 20:59 08/14/20 20:38 Sodium Chloride 1,000 ml @ 75 mls/hr [id number] IV 08/13/20 13:30 09/12/20 13:29 08/15/20 03:26 Vitamin D (Vitamin D) 5,000 unit DAILY GT 08/11/20 10:15 09/10/20 10:14 08/15/20 08:12 Santosh Cheek MD Aug 15, 2020 12:13
--- NOTE | 2020-08-15 13:16 | Nephrology Progress Note ---
Assessment/Plan Problem List: (1) ERIKA (acute kidney injury) (2) Shock liver (3) Acute respiratory failure with hypoxia (4) Bilateral pneumonia Assessment Acute renal failure. Most likely due to hypotensive and shock from 8 PM last night to 5 AM this morning. Hyperkalemia. Acute hypoxic respiratory failure. Pneumonia with COVID-19. Elevated transaminase, most likely shock liver. Plan August 15: Labs reviewed. Dialyzed yesterday. Potassium 5.6. Kayexalate ordered. EEG formal results noted. Waiting for neurological advice with regard to clinical findings regarding brain stem function. August 14: Labs reviewed. Will order dialysis today. We waiting for the formal EEG results regarding brain activity. Continue per consultants. August 13: Labs reviewed. Last dialyzed August 11. Last evening the patient was hypotensive with poor oxygenation. Patient responded to albumin and fluid challenge. IV Lasix given. Today on 2 pressors. Remains hemodynamically unstable. Discussed with RN. Still do not have the EEG results. Continue current care. Unstable for dialysis today. Will check lab tomorrow. August 12: Labs reviewed. Patient dialyzed yesterday. Discussed with RN. Kneny white had EEG done last night which appears to have no brain activity. Waiting for neuro advice regarding brain activity. Will discontinue dialysis plans if the patient considered brain . August 11: Lab reviewed. Renal parameters worsening. Due for insertion of dialysis catheter today. Patient's head CT scan was not done due to change in condition. Vitamin D supplements started for low vitamin D level. August 10: Lab reviewed. Renal parameters worsening. Patient unresponsive. Remains on ventilator. Remains full code. Due for CT scan of the head. Will plan for dialysis catheter and dialysis should the head CT results are desirable. Discussed with CARLOS Laurent. August 09: Labs reviewed. Potassium elevated. Kayexalate given. Serum sodium gradually improving. Continue D5W. Continue per consultants. Continue monitor renal parameters and electrolytes. August 08: Labs reviewed. Renal parameters stable. Abnormal electrolytes noted. Continue current management. Albumin bolus given. Continue to monitor current state August 07: Labs reviewed. Neutra-Phos via NG tube given. Serum sodium and serum potassium lowering. Medication list reviewed. Levemir and Cardizem doses were adjusted by consultants. Continue to monitor renal parameters. August 06: Labs reviewed. Serum potassium 5.2. Serum sodium 152. Will change IV to D5W. Will start with the Levemir 10 mg nightly. August 05: Labs reviewed. Renal parameters improving. LFTs gradually improving. IV changed to half-normal saline. Continue to monitor blood sugar. Continue to monitor renal parameters. Patient full code. Cardizem dose increased. August 04: Renal parameters improving. LFTs remain elevated. Hemodynamically stable. Continue to monitor renal parameters. Continue per consultants. Discussed with CARLOS Greene. August 03: Patient intubated on ventilator. Renal parameters worsening. LFTs elevated. Patient is deteriorating. Will consider dialysis treatment if no reversal of kidney failure. Discussed with CARLOS Alexis. Previously: Albumin bolus Increase IV fluid Kayexalate for high potassium Monitor renal parameters Subjective ROS Limited/Unobtainable: Yes Objective Objective Last 24 Hour Vital Signs Date Time Temp Pulse Resp B/P (MAP) Pulse Ox O2 Delivery O2 Flow Rate FiO2 08/15/20 13:08 62/43 08/15/20 12:00 80 08/15/20 12:00 100 08/15/20 12:00 113 16 81/46 (58) 60 08/15/20 12:00 81/46 08/15/20 11:00 104/48 08/15/20 11:00 114 16 96/52 (67) 63 08/15/20 10:00 109/64 08/15/20 10:00 119 24 144/77 (99) 74 08/15/20 09:00 119 24 132/72 (92) 70 08/15/20 09:00 132/72 08/15/20 08:00 100 08/15/20 08:00 121/66 08/15/20 08:00 119 08/15/20 08:00 98.9 119 20 121/66 (84) 69 08/15/20 08:00 Mechanical Ventilator 08/15/20 07:00 120 23 123/69 (87) 69 08/15/20 07:00 123/69 08/15/20 06:00 116 20 98/47 (64) 66 08/15/20 06:00 116 98/47 08/15/20 06:00 98/47 08/15/20 05:02 116/69 08/15/20 05:00 116 16 116/69 (85) 65 08/15/20 04:00 100.2 121 19 117/58 (77) 63 08/15/20 04:00 Mechanical Ventilator 08/15/20 04:00 123 08/15/20 04:00 100 08/15/20 04:00 117/58 08/15/20 03:00 122 16 113/58 (76) 64 08/15/20 03:00 113/58 08/15/20 02:00 124 17 113/59 (77) 52 08/15/20 02:00 113/59 08/15/20 01:00 112 16 86/52 (63) 64 08/15/20 01:00 86/52 08/15/20 00:22 111 16 100 08/15/20 00:00 117 08/15/20 00:00 91/47 08/15/20 00:00 101.5 114 16 91/47 (62) 67 08/15/20 00:00 Mechanical Ventilator 08/14/20 23:00 116 21 113/54 (73) 69 08/14/20 23:00 113/54 08/14/20 22:00 114 20 95/55 (68) 75 08/14/20 22:00 114 95/55 08/14/20 22:00 95/55 08/14/20 21:00 120 20 102/62 (75) 71 08/14/20 21:00 102/60 08/14/20 20:15 95 16 91/46 (61) 76 08/14/20 20:15 91/46 08/14/20 20:10 98 17 86/45 (59) 76 08/14/20 20:10 86/45 08/14/20 20:05 87/42 08/14/20 20:05 102 18 87/42 (57) 75 08/14/20 20:00 100 08/14/20 20:00 97.9 94 16 85/45 (58) 66 08/14/20 20:00 85/45 08/14/20 20:00 100 08/14/20 20:00 Mechanical Ventilator 08/14/20 19:11 78 16 100 08/14/20 19:00 110 16 97/50 (66) 70 08/14/20 19:00 97/50 08/14/20 18:00 98/49 08/14/20 18:00 107 16 98/49 (65) 79 08/14/20 17:00 112 19 112/52 (72) 79 08/14/20 17:00 112/55 08/14/20 16:00 112 08/14/20 16:00 113/56 08/14/20 16:00 100 08/14/20 16:00 98.9 108 18 117/54 (75) 84 08/14/20 16:00 Mechanical Ventilator 08/14/20 15:35 104 16 100 08/14/20 15:00 111 19 152/82 (105) 84 08/14/20 15:00 126/58 08/14/20 14:32 69/27 08/14/20 14:00 112 19 141/64 (89) 83 08/14/20 14:00 112 138/62 Intake and Output 08/14/20 08/15/20 19:00 07:00 Intake Total 1811.75 ml 2202.9825 ml Output Total 550 ml 140 ml Balance 1261.75 ml 2062.9825 ml Free Water 100 ml IV Total 1191.75 ml 1582.9825 ml Tube Feeding 420 ml 420 ml Other 100 ml 200 ml Output Urine Total 550 ml 140 ml Current Medications Medications (Trade) Dose Ordered Sig/Fabiano Route PRN Reason Start Time Stop Time Status Last Admin Dose Admin Acetaminophen (Tylenol) 650 mg Q4H PRN NG Temp >100.5 08/03/20 04:15 09/02/20 04:14 08/15/20 00:50 Acetaminophen (Tylenol) 650 mg Q4H PRN RECTAL Temp >100.5 08/01/20 20:30 08/31/20 20:29 08/13/20 01:22 Albuterol Sulfate (Proventil MDI) 2 puff Q4H PRN INH Shortness of Breath 07/29/20 22:45 10/27/20 22:44 Ceftriaxone Sodium 1 gm/ Sodium Chloride 55 ml @ 110 mls/hr Q24H IVPB 08/13/20 10:00 08/20/20 09:59 08/15/20 10:18 Chlorhexidine Gluconate (Marisela-Hex 2%) 1 applic DAILY@2000 TOPIC 08/08/20 20:00 11/06/20 19:59 08/14/20 20:38 Clonidine HCl (Catapres Tab) 0.1 mg Q2H PRN ORAL SBP > 170mmHg 08/04/20 09:45 11/02/20 09:44 08/07/20 23:20 Dextrose (Dextrose 50%) 25 ml Q30M PRN IV Hypoglycemia 08/15/20 11:30 11/13/20 11:29 Dextrose (Dextrose 50%) 50 ml Q30M PRN IV Hypoglycemia 08/15/20 11:30 11/13/20 11:29 Diltiazem HCl (Cardizem Tab) 120 mg Q8HR GT 08/14/20 14:00 09/07/20 21:59 Docusate Sodium (Colace) 100 mg Q12HR GT 08/08/20 21:00 09/07/20 20:59 08/15/20 08:11 Enoxaparin Sodium (Lovenox) 30 mg DAILY SUBQ 08/02/20 10:00 10/31/20 09:59 08/15/20 08:13 Insulin Aspart (NovoLOG) EVERY 4 HOURS SUBQ 08/15/20 13:00 11/13/20 12:59 Insulin Aspart (NovoLOG) 10 units EVERY 4 HOURS SUBQ 08/15/20 13:00 11/13/20 12:59 Methylprednisolone Sodium Succinate (Solu-MEDROL) 40 mg EVERY 12 HOURS IVP 08/12/20 09:09 11/02/20 12:29 08/15/20 08:12 Miscellaneous Medication (Insulin Rate Change) 1 ea PRN PRN MISC Per rx protocol 08/12/20 19:00 11/10/20 18:59 08/13/20 05:33 Norepinephrine Bitartrate 8 mg/ Sodium Chloride 500 ml @ 0 mls/hr Q24H PRN IV For hypotension 08/12/20 21:00 08/15/20 20:59 08/15/20 13:08 Pantoprazole (Protonix) 40 mg DAILY IVP 08/06/20 10:00 09/05/20 09:59 08/15/20 08:11 Polyethylene Glycol (Miralax) 17 gm BEDTIME ORAL 08/06/20 21:00 09/05/20 20:59 08/14/20 20:38 Sodium Chloride 1,000 ml @ 75 mls/hr [id number] IV 08/13/20 13:30 09/12/20 13:29 08/15/20 03:26 Vitamin D (Vitamin D) 5,000 unit DAILY GT 08/11/20 10:15 09/10/20 10:14 08/15/20 08:12 Laboratory Tests 08/14/20 15:46: POC Whole Blood Glucose 135H 08/14/20 16:32: POC Whole Blood Glucose [Pending] 08/14/20 17:03: POC Whole Blood Glucose 136H 08/14/20 19:55: POC Whole Blood Glucose [Pending] 08/14/20 22:13: POC Whole Blood Glucose [Pending] 08/14/20 23:48: POC Whole Blood Glucose [Pending] 08/15/20 01:51: POC Whole Blood Glucose 199H 08/15/20 03:55: POC Whole Blood Glucose [Pending] 08/15/20 04:00: White Blood Count 35.3*H, Red Blood Count 3.40L, Hemoglobin 10.7L, Hematocrit 34.2L, Mean Corpuscular Volume 100H, Mean Corpuscular Hemoglobin 31.3H, Mean Corpuscular Hemoglobin Concent 31.2L, Red Cell Distribution Width 13.0, Platelet Count 294#, Mean Platelet Volume 8.5, Neutrophils (%) (Auto) , Lymphocytes (%) (Auto) , Monocytes (%) (Auto) , Eosinophils (%) (Auto) , Basophils (%) (Auto) , Differential Total Cells Counted 100, Neutrophils % (Manual) 85H, Lymphocytes % (Manual) 3L, Monocytes % (Manual) 7, Eosinophils % (Manual) 0, Basophils % (Manual) 0, Myelocytes % 5H, Band Neutrophils 0, Nucleated Red Blood Cells 2, Platelet Estimate Adequate, Platelet Morphology Normal, Polychromasia 1+, Hypochromasia 1+, Macrocytosis 1+, Sodium Level 139, Potassium Level 5.6H, Chloride Level 102, Carbon Dioxide Level 27, Anion Gap 10, Blood Urea Nitrogen 96H, Creatinine 4.1H, Estimat Glomerular Filtration Rate 14.7, Glucose Level 169H, Calcium Level 7.9L, Phosphorus Level 8.5H, Magnesium Level 2.8H, Total Bilirubin 0.3, Aspartate Amino Transf (AST/SGOT) 414H, Alanine Aminotransferase (ALT/SGPT) 79H, Alkaline Phosphatase 191H, C-Reactive Protein, Quantitative 3.3H , Pro-B-Type Natriuretic Peptide 15104M, Total Protein 5.7L, Albumin 2.3L, Globulin 3.4, Albumin/Globulin Ratio 0.7L Height (Feet): 5 Height (Inches): 5.00 Weight (Pounds): 160 General Appearance: no apparent distress EENT: other - Intubated on ventilator Cardiovascular: tachycardia Respiratory/Chest: decreased breath sounds Abdomen: distended Jared Everett MD Aug 15, 2020 13:16
[2020-08-15] MEDS: NovoLOG Insulin Flexpen SUBQ SCH ×6 (13:20→20:46)
[2020-08-15] MEDS ORDERED: NS 275ml ONE (13:39)
--- NOTE | 2020-08-15 14:00 | NUR ---
NURSE NOTES: Pt's condition unchanged,remains unstable.
--- NOTE | 2020-08-15 14:50 | Cardiac Electrophysiology PN ---
Assessment/Plan Assessment/Plan 1. Bradycardia off any sinus-galen or AV-galen blocking agents. Echo EF 60% 2. Atral fib with RVR. DC Cardizem in view of hypotension on Levo 3. Respiratory failure due to Covid PNA intubated on 100% Fio2 and PEEP 8 4. Acute renal failure with BUN/Cr 129/4.2 S/P Right IJ Kevin. 5. Shock Liver with AST and ALT >1100. Better now 6. Septic shock. White count still 26,000 on IV antibiotic and Levophed 15 Mcg DC Cardizem 7. Comatose. S/P EEG. Awaiting final reading and Neuro eval DIXIE RN and Dr Everett Subjective Subjective In ICU intubated on 100% Fio2 and PEEP 8.Sat stil 80% range. EF 60%. On Cardizem 120 tid. S/P Right IJ Kevin by Radiology Comatose with no activity on EEG. Awaiting final EEG reading for brain eval by Neuro On Levo 15 Mcg now Objective Last 24 Hour Vital Signs Date Time Temp Pulse Resp B/P (MAP) Pulse Ox O2 Delivery O2 Flow Rate FiO2 08/15/20 14:09 100.0 08/15/20 14:00 72/45 08/15/20 14:00 61 16 54/30 (38) 83 08/15/20 13:22 80 62/43 08/15/20 13:08 62/43 08/15/20 13:00 100.6 99 16 72/45 (54) 64 08/15/20 12:00 80 08/15/20 12:00 100 08/15/20 12:00 113 16 81/46 (58) 60 08/15/20 12:00 81/46 08/15/20 12:00 Mechanical Ventilator 08/15/20 11:00 104/48 08/15/20 11:00 114 16 96/52 (67) 63 08/15/20 10:00 109/64 08/15/20 10:00 119 24 144/77 (99) 74 08/15/20 09:00 119 24 132/72 (92) 70 08/15/20 09:00 132/72 08/15/20 08:00 100 08/15/20 08:00 121/66 08/15/20 08:00 119 08/15/20 08:00 98.9 119 20 121/66 (84) 69 08/15/20 08:00 Mechanical Ventilator 08/15/20 07:00 120 23 123/69 (87) 69 08/15/20 07:00 123/69 08/15/20 06:00 116 20 98/47 (64) 66 08/15/20 06:00 116 98/47 08/15/20 06:00 98/47 08/15/20 05:02 116/69 08/15/20 05:00 116 16 116/69 (85) 65 08/15/20 04:00 100.2 121 19 117/58 (77) 63 08/15/20 04:00 Mechanical Ventilator 08/15/20 04:00 123 08/15/20 04:00 100 08/15/20 04:00 117/58 08/15/20 03:00 122 16 113/58 (76) 64 08/15/20 03:00 113/58 08/15/20 02:00 124 17 113/59 (77) 52 08/15/20 02:00 113/59 08/15/20 01:00 112 16 86/52 (63) 64 08/15/20 01:00 86/52 08/15/20 00:22 111 16 100 08/15/20 00:00 117 08/15/20 00:00 91/47 08/15/20 00:00 101.5 114 16 91/47 (62) 67 08/15/20 00:00 Mechanical Ventilator 08/14/20 23:00 116 21 113/54 (73) 69 08/14/20 23:00 113/54 08/14/20 22:00 114 20 95/55 (68) 75 08/14/20 22:00 114 95/55 08/14/20 22:00 95/55 08/14/20 21:00 120 20 102/62 (75) 71 08/14/20 21:00 102/60 08/14/20 20:15 95 16 91/46 (61) 76 08/14/20 20:15 91/46 08/14/20 20:10 98 17 86/45 (59) 76 08/14/20 20:10 86/45 08/14/20 20:05 87/42 08/14/20 20:05 102 18 87/42 (57) 75 08/14/20 20:00 100 08/14/20 20:00 97.9 94 16 85/45 (58) 66 08/14/20 20:00 85/45 08/14/20 20:00 100 08/14/20 20:00 Mechanical Ventilator 08/14/20 19:11 78 16 100 08/14/20 19:00 110 16 97/50 (66) 70 08/14/20 19:00 97/50 08/14/20 18:00 98/49 08/14/20 18:00 107 16 98/49 (65) 79 08/14/20 17:00 112 19 112/52 (72) 79 08/14/20 17:00 112/55 08/14/20 16:00 112 08/14/20 16:00 113/56 08/14/20 16:00 100 08/14/20 16:00 98.9 108 18 117/54 (75) 84 08/14/20 16:00 Mechanical Ventilator 08/14/20 15:35 104 16 100 08/14/20 15:00 111 19 152/82 (105) 84 08/14/20 15:00 126/58 Intake and Output 08/14/20 08/15/20 19:00 07:00 Intake Total 1811.75 ml 2202.9825 ml Output Total 550 ml 140 ml Balance 1261.75 ml 2062.9825 ml Free Water 100 ml IV Total 1191.75 ml 1582.9825 ml Tube Feeding 420 ml 420 ml Other 100 ml 200 ml Output Urine Total 550 ml 140 ml Laboratory Tests Test 08/14/20 15:46 08/14/20 16:32 08/14/20 17:03 08/14/20 19:55 POC Whole Blood Glucose 135 MG/DL (74-106) H Pending 136 MG/DL (74-106) H Pending Test 08/14/20 22:13 08/14/20 23:48 08/15/20 01:51 08/15/20 03:55 POC Whole Blood Glucose Pending Pending 199 MG/DL (74-106) H Pending Test 08/15/20 04:00 White Blood Count 35.3 K/UL (4.8-10.8) *H Red Blood Count 3.40 M/UL (4.70-6.10) L Hemoglobin 10.7 G/DL (14.2-18.0) L Hematocrit 34.2 % (42.0-52.0) L Mean Corpuscular Volume 100 FL (80-99) H Mean Corpuscular Hemoglobin 31.3 PG (27.0-31.0) H Mean Corpuscular Hemoglobin Concent 31.2 G/DL (32.0-36.0) L Red Cell Distribution Width 13.0 % (11.6-14.8) Platelet Count 294 K/UL (150-450) # Mean Platelet Volume 8.5 FL (6.5-10.1) Neutrophils (%) (Auto) % (45.0-75.0) Lymphocytes (%) (Auto) % (20.0-45.0) Monocytes (%) (Auto) % (1.0-10.0) Eosinophils (%) (Auto) % (0.0-3.0) Basophils (%) (Auto) % (0.0-2.0) Differential Total Cells Counted 100 Neutrophils % (Manual) 85 % (45-75) H Lymphocytes % (Manual) 3 % (20-45) L Monocytes % (Manual) 7 % (1-10) Eosinophils % (Manual) 0 % (0-3) Basophils % (Manual) 0 % (0-2) Myelocytes % 5 % (0-0) H Band Neutrophils 0 % (0-8) Nucleated Red Blood Cells 2 /100 WBC Platelet Estimate Adequate Platelet Morphology Normal Polychromasia 1+ Hypochromasia 1+ Macrocytosis 1+ Sodium Level 139 MMOL/L (136-145) Potassium Level 5.6 MMOL/L (3.5-5.1) H Chloride Level 102 MMOL/L (98-107) Carbon Dioxide Level 27 MMOL/L (21-32) Anion Gap 10 mmol/L (5-15) Blood Urea Nitrogen 96 mg/dL (7-18) H Creatinine 4.1 MG/DL (0.55-1.30) H Estimat Glomerular Filtration Rate 14.7 mL/min (>60) Glucose Level 169 MG/DL (74-106) H Calcium Level 7.9 MG/DL (8.5-10.1) L Phosphorus Level 8.5 MG/DL (2.5-4.9) H Magnesium Level 2.8 MG/DL (1.8-2.4) H Total Bilirubin 0.3 MG/DL (0.2-1.0) Aspartate Amino Transf (AST/SGOT) 414 U/L (15-37) H Alanine Aminotransferase (ALT/SGPT) 79 U/L (12-78) H Alkaline Phosphatase 191 U/L (46-116) H C-Reactive Protein, Quantitative 3.3 mg/dL (0.00-0.90) H Pro-B-Type Natriuretic Peptide 33007 pg/mL (0-125) H Total Protein 5.7 G/DL (6.4-8.2) L Albumin 2.3 G/DL (3.4-5.0) L Globulin 3.4 g/dL Albumin/Globulin Ratio 0.7 (1.0-2.7) L Objective HEAD AND NECK: Orally intubated LUNGS: Coarse rhonchi CARDIOVASCULAR: Shows regular S1 and S2 with no gallop. ABDOMEN: Soft. EXTREMITIES: No pitting edema. Navjot Bains MD Aug 15, 2020 14:50
--- NOTE | 2020-08-15 15:19 | NUR ---
Title CuratorSurfacing Technician SI: Respiratory failure,, ETT/vent support COVID PNA, ARF T-100.0, HR 60, RR 16, BP 60/30, O2 sat 85% AC 16, TV 500, PEEP 8.0 FiO2 100% WBC 35.3. BUN 96, Creatinine 4.1, K+ 5.6, Ast 414, Alk Phos 191 cxray bilateral infiltrates unchanged IS: Rocephin IV QD Lovenox SQ QD Protonix IVP QD Levophed GTT Solu Medrol IVP q 12 h NS @ 75cc/hr Levophed GTT ICU Status
--- NOTE | 2020-08-15 16:51 | NUR ---
NURSE NOTES: Bed bath given rechecked pt's temp down to T98.9,turned and repositioned.
--- NOTE | 2020-08-15 19:25 | NUR ---
NURSE HAND-OFF REPORT: Latest Vital Signs: Temperature 100.0 , Pulse 122 , B/P 107 /60 , Respiratory Rate 20 , O2 SAT 66 , Mechanical Ventilator, O2 Flow Rate . Vital Sign Comment: [] EKG Rhythm: Sinus Tachycardia Rhythm change?: N Notified?: Moi Guzman MD Response: Latest Orozco Fall Score: 70 Fall Risk: High Risk Safety Measures: Call light Within Reach, Bed Alarm Zone 1, Side Rails Side Rails x2, Bed position Low and Locked. Fall Precautions: Yellow Socks Door Sign Patient Fall Education Report given to Supa Locke RN..
--- NOTE | 2020-08-15 19:40 | NUR ---
NURSE NOTES: PATIENT OBTUNDED, ON ETT TO VENT, O2 SATURATION 68% ON VENT AC 16/TV550/FIO2 100%/PEEP8, HR 100'S/MIN ST, OGT INTACT AND PATENT, ONGOING NEPRO AT 35ML/HR, NO RESIDUE NOTED, KEPT HOB 30 DEGREES AND ASPIRATION PRECAUTION, ABDOMEN DISTENDED, NO BM STATUS, F/C INTACT AND PATENT, GISSEL URINE OUTED, CHERELLE W/PIG TAIL TO RIGHT IJ AND PPL TO RIGHT [id number], INTACT AND PATENT, ONGOING IV FLUID NS AT 75ML/HR AND LEVOPHED 15MCG/MIN STATUS, ON P200 BED, MADE LOWER BED POSITION, ON BED ALARM AND LOCKED, WILL CONTINUE TO MONITOR.
[2020-08-15] MEDS: Dyna-Hex 2% Top Sol 2oz TOPIC SCH (19:54)
[2020-08-15] MEDS: Miralax 17gm pkt ORAL SCH (20:23)
--- NOTE | 2020-08-15 21:05 | Neurology Progress Note ---
Interim History Interim History ROS Limited/Unobtainable: Yes Interim History DW with family at length today. Family was informed of irreversible [employer] damage with poor prognosis. EEG noted. Pt unstable for brain imaging Unable to get apnea test Likely brain Objective Physical Exam Last Vital Signs Date Time Temp Pulse Resp B/P (MAP) Pulse Ox O2 Delivery O2 Flow Rate FiO2 08/15/20 20:48 99/57 08/15/20 19:11 122 20 100 08/15/20 18:00 66 08/15/20 17:30 98.9 08/15/20 16:00 Mechanical Ventilator Laboratory Tests Test 08/14/20 22:13 08/14/20 23:48 08/15/20 01:51 08/15/20 03:55 POC Whole Blood Glucose Pending Pending 199 MG/DL (74-106) H Pending Test 08/15/20 04:00 White Blood Count 35.3 K/UL (4.8-10.8) *H Red Blood Count 3.40 M/UL (4.70-6.10) L Hemoglobin 10.7 G/DL (14.2-18.0) L Hematocrit 34.2 % (42.0-52.0) L Mean Corpuscular Volume 100 FL (80-99) H Mean Corpuscular Hemoglobin 31.3 PG (27.0-31.0) H Mean Corpuscular Hemoglobin Concent 31.2 G/DL (32.0-36.0) L Red Cell Distribution Width 13.0 % (11.6-14.8) Platelet Count 294 K/UL (150-450) # Mean Platelet Volume 8.5 FL (6.5-10.1) Neutrophils (%) (Auto) % (45.0-75.0) Lymphocytes (%) (Auto) % (20.0-45.0) Monocytes (%) (Auto) % (1.0-10.0) Eosinophils (%) (Auto) % (0.0-3.0) Basophils (%) (Auto) % (0.0-2.0) Differential Total Cells Counted 100 Neutrophils % (Manual) 85 % (45-75) H Lymphocytes % (Manual) 3 % (20-45) L Monocytes % (Manual) 7 % (1-10) Eosinophils % (Manual) 0 % (0-3) Basophils % (Manual) 0 % (0-2) Myelocytes % 5 % (0-0) H Band Neutrophils 0 % (0-8) Nucleated Red Blood Cells 2 /100 WBC Platelet Estimate Adequate Platelet Morphology Normal Polychromasia 1+ Hypochromasia 1+ Macrocytosis 1+ Sodium Level 139 MMOL/L (136-145) Potassium Level 5.6 MMOL/L (3.5-5.1) H Chloride Level 102 MMOL/L (98-107) Carbon Dioxide Level 27 MMOL/L (21-32) Anion Gap 10 mmol/L (5-15) Blood Urea Nitrogen 96 mg/dL (7-18) H Creatinine 4.1 MG/DL (0.55-1.30) H Estimat Glomerular Filtration Rate 14.7 mL/min (>60) Glucose Level 169 MG/DL (74-106) H Calcium Level 7.9 MG/DL (8.5-10.1) L Phosphorus Level 8.5 MG/DL (2.5-4.9) H Magnesium Level 2.8 MG/DL (1.8-2.4) H Total Bilirubin 0.3 MG/DL (0.2-1.0) Aspartate Amino Transf (AST/SGOT) 414 U/L (15-37) H Alanine Aminotransferase (ALT/SGPT) 79 U/L (12-78) H Alkaline Phosphatase 191 U/L (46-116) H C-Reactive Protein, Quantitative 3.3 mg/dL (0.00-0.90) H Pro-B-Type Natriuretic Peptide 41160 pg/mL (0-125) H Total Protein 5.7 G/DL (6.4-8.2) L Albumin 2.3 G/DL (3.4-5.0) L Globulin 3.4 g/dL Albumin/Globulin Ratio 0.7 (1.0-2.7) L Neurologic Exam Objective intubated, sedated per nurse earlier pupils reactive, no movement to pain Impression/Recommendations Problems: (1) Hypoxia (2) Bilateral pneumonia (3) Acute respiratory failure with hypoxia (4) Bradycardia (5) Malnutrition (6) Shock liver (7) ERIKA (acute kidney injury) (8) Diabetes mellitus out of control Status: unchanged Diagnostic Impression Prolonged admission with septic shock, resp failure, now kidney failure on HD LFTs worsening Likely anoxic brain injury icu level map > 65 prognosis is poor family aware EEG noted with electrica silence CT brain if stable to go down Gabriel Villanueva MD Aug 15, 2020 21:04
[2020-08-15] MEDS ORDERED: NS IV SCH (22:00)
[2020-08-15] MEDS ORDERED: NOREPINEPHRINE BITARTRATE IV SCH (22:00)
--- NOTE | 2020-08-15 22:00 | NUR ---
NURSE NOTES: BP 101/54MMHG ON LEVOPHED DRIP 24MCG/MIN, WILL CONTINUE TO MONITOR.
[2020-08-15] MEDS: Norepinephrine Bitartrate 8 MG in Sodium Chloride 492 ML IV SCH (22:05)
[2020-08-16] VITALS (37 sets, daily range): BP systolic 69–136; BP diastolic 38–68
--- NOTE | 2020-08-16 00:23 | NUR ---
NURSE NOTES: CALLED DR. MAYO REGARDING BP 88/45 ON LEVOPHED 30MCG/MIN THAT LEFT MESSAGE AWAIT CALL.
[2020-08-16] MEDS: NovoLOG Insulin Flexpen SUBQ SCH ×10 (00:27→17:00)
--- NOTE | 2020-08-16 00:28 | NUR ---
NURSE NOTES: CALLED BACK FROM DR. MAYO THAT RECEIVED NEW ORDER.
[2020-08-16] MEDS ORDERED: Vasopressin 100 UNITS in NS 95 ML IV SCH (00:30)
[2020-08-16] MEDS ORDERED: DOPamine 400mg/250ml 250 ML IV SCH (00:30)
[2020-08-16] MEDS: Phenylephrine 50 MG in D5W 245 ML IV SCH ×4 (01:09→15:47)
--- NOTE | 2020-08-16 01:09 | NUR ---
NURSE NOTES: SBP BELOW 90MMHG, STARTED PHENYLEPHRINE 240MCG/MIN VIA RIGHT CHERELLE W/ PIG TAIL ORDERED, WILL CONTINUE TO MONITOR.
[2020-08-16] MEDS: Norepinephrine Bitartrate 8 MG in Sodium Chloride 492 ML IV SCH ×4 (02:16→15:44)
--- NOTE | 2020-08-16 03:26 | NUR ---
NURSE NOTES: BP 95/56mmhg, hr 113/min ST noted at this time, ongoing Levophed 30mcg/min and Phenylephrine 180mcg/min, no response status, will continue plan of care.
--- NOTE | 2020-08-16 05:30 | NUR ---
NURSE NOTES: MORNING CARE WAS DONE.
[2020-08-16 06:24] LABS: HEMATOCRIT 33.6 % (42.0-52.0); HEMOGLOBIN 10.2 G/DL (14.2-18.0); MEAN CORPUSCULAR VOLUME 104 FL (80-99); PLATELET COUNT 248 K/UL (150-450); RED BLOOD COUNT 3.23 M/UL (4.70-6.10); RED CELL DISTRIBUTION WIDTH 13.8 % (11.6-14.8)
[2020-08-16 06:35] LABS: WHITE BLOOD COUNT 44.7 K/UL (4.8-10.8)
[2020-08-16 06:48] LABS: ALBUMIN/GLOBULIN RATIO 0.6 (1.0-2.7); BILIRUBIN,TOTAL 0.9 MG/DL (0.2-1.0); CALCIUM 7.5 MG/DL (8.5-10.1)
[2020-08-16 06:53] LABS: POTASSIUM 6.1 MMOL/L (3.5-5.1)
[2020-08-16 06:56] LABS: PHOSPHORUS 11.5 MG/DL (2.5-4.9)
--- NOTE | 2020-08-16 07:10 | NUR ---
NURSE NOTES: SEEN THE PATIENT BY DR. Duc CAVAZOS THAT INFORMED PT'S WBC 44.7, WAS AWARE.
--- NOTE | 2020-08-16 07:32 | NUR ---
NURSE HAND-OFF REPORT: Latest Vital Signs: Temperature 99.4 , Pulse 106 , B/P 97 /60 , Respiratory Rate 16 , O2 SAT 55 , Mechanical Ventilator, O2 Flow Rate . Vital Sign Comment: EKG Rhythm: Sinus Tachycardia Rhythm change?: N Notified?: Moi Guzman MD Response: Latest Orozco Fall Score: 70 Fall Risk: High Risk Safety Measures: Call light Within Reach, Bed Alarm Zone 1, Side Rails Side Rails x2, Bed position Low and Locked. Fall Precautions: Yellow Socks Door Sign Patient Fall Education Report given to CARLOS ROBLES.
--- NOTE | 2020-08-16 07:35 | Infectious Diseases Prog Note ---
Assessment/Plan Assessment/Plan A; Pneumonia,with COVID19 disease Leukocytosis Acute renal failure, worsening Hyperkalemia Hypoxic, hypercapnic respiratory failure Lactic acidosis Elevated transaminase DM type 2 with Hyperglycemia Brain , no activity on EEG PLAN: 1. Continue Rocephin 2. Continue Solumedrol 3. Continue isolation. Subjective ROS Limited/Unobtainable: Yes Cardiovascular: Reports: other - on pressors Allergies: Coded Allergies: No Known Allergies (Unverified , 07/29/20) Objective Last 24 Hour Vital Signs Date Time Temp Pulse Resp B/P (MAP) Pulse Ox O2 Delivery O2 Flow Rate FiO2 08/16/20 07:15 106 16 100 08/16/20 06:31 97/60 08/16/20 06:00 105/49 08/16/20 06:00 104 16 105/49 (67) 55 08/16/20 05:43 110 94/57 08/16/20 05:30 107 17 94/57 (69) 60 08/16/20 05:00 102/65 08/16/20 05:00 110 17 102/65 (77) 60 08/16/20 04:30 107 16 106/62 (77) 62 08/16/20 04:00 Mechanical Ventilator 08/16/20 04:00 109 08/16/20 04:00 90/55 08/16/20 04:00 99.4 109 17 90/55 (67) 62 08/16/20 04:00 100 08/16/20 03:35 113 16 100 08/16/20 03:30 109 18 93/56 (68) 63 08/16/20 03:15 113 16 95/56 (69) 65 08/16/20 03:00 113 16 103/68 (80) 62 08/16/20 03:00 103/68 08/16/20 02:45 116 16 92/58 (69) 64 08/16/20 02:30 117 16 103/63 (76) 63 08/16/20 02:16 119/61 08/16/20 02:15 123 16 119/61 (80) 60 08/16/20 02:00 136/68 08/16/20 02:00 124 16 136/68 (90) 60 08/16/20 01:30 113 16 112/57 (75) 68 08/16/20 01:29 110 16 102/56 (71) 64 08/16/20 01:22 95 17 100/55 (70) 70 08/16/20 01:15 96 16 69/49 (56) 68 08/16/20 01:09 93 79/52 08/16/20 01:07 99 17 79/52 (61) 69 08/16/20 01:00 85/62 08/16/20 01:00 104 16 85/62 (70) 67 08/16/20 00:45 98 16 84/41 (55) 67 08/16/20 00:30 105/49 08/16/20 00:30 100 16 76/55 (62) 68 08/16/20 00:15 91 16 88/45 (59) 71 08/16/20 00:13 92 16 77/55 (62) 67 08/16/20 00:06 90 16 73/53 (60) 70 08/16/20 00:00 100 08/16/20 00:00 99.0 90 16 80/51 (61) 70 08/16/20 00:00 80/51 08/16/20 00:00 Mechanical Ventilator 08/16/20 00:00 90 08/15/20 23:45 91 16 73/43 (53) 68 08/15/20 23:45 73/43 08/15/20 23:30 98 16 100/76 (84) 70 08/15/20 23:28 110 16 100 08/15/20 23:15 111 16 94/44 (61) 69 08/15/20 23:00 110 16 81/49 (60) 69 08/15/20 23:00 81/49 08/15/20 22:30 122 16 92/54 (67) 69 08/15/20 22:15 122 16 101/52 (68) 70 08/15/20 22:05 101/54 08/15/20 22:00 101/54 08/15/20 22:00 123 17 101/54 (70) 69 08/15/20 21:45 123 18 101/52 (68) 70 08/15/20 21:30 120 17 95/54 (68) 69 08/15/20 21:15 120 18 90/42 (58) 68 08/15/20 21:00 123 19 119/58 (78) 69 08/15/20 21:00 119/58 08/15/20 20:48 99/57 08/15/20 20:45 108 17 99/57 (71) 74 08/15/20 20:44 106 17 97/57 (70) 66 08/15/20 20:37 83 16 80/47 (58) 83 08/15/20 20:35 70 20 59/34 (42) 84 08/15/20 20:30 82 16 65/35 (45) 77 08/15/20 20:15 80 16 67/37 (47) 75 08/15/20 20:00 99.2 90 16 69/33 (45) 68 08/15/20 20:00 90 08/15/20 20:00 100 08/15/20 20:00 69/33 08/15/20 20:00 Mechanical Ventilator 08/15/20 19:45 96 16 69/33 (45) 68 08/15/20 19:11 122 20 100 08/15/20 19:00 106 16 69/33 (45) 68 08/15/20 19:00 69/33 08/15/20 18:00 118 20 80/48 (59) 66 08/15/20 18:00 107/60 08/15/20 17:30 98.9 08/15/20 17:00 97/51 08/15/20 17:00 115 24 95/51 (66) 63 08/15/20 16:00 Mechanical Ventilator 08/15/20 16:00 100 08/15/20 16:00 114/52 08/15/20 16:00 100.0 116 17 114/52 (72) 65 08/15/20 16:00 78 08/15/20 15:26 116 16 100 08/15/20 15:00 110/67 08/15/20 15:00 60 16 60/30 (40) 85 08/15/20 14:09 100.0 08/15/20 14:00 72/45 08/15/20 14:00 61 16 54/30 (38) 83 08/15/20 13:22 80 62/43 08/15/20 13:08 62/43 08/15/20 13:00 100.6 99 16 72/45 (54) 64 08/15/20 12:00 80 08/15/20 12:00 100 08/15/20 12:00 113 16 81/46 (58) 60 08/15/20 12:00 81/46 08/15/20 12:00 Mechanical Ventilator 08/15/20 11:00 104/48 08/15/20 11:00 114 16 96/52 (67) 63 08/15/20 10:55 116 21 100 08/15/20 10:00 109/64 08/15/20 10:00 119 24 144/77 (99) 74 08/15/20 09:00 119 24 132/72 (92) 70 08/15/20 09:00 132/72 08/15/20 08:00 100 08/15/20 08:00 121/66 08/15/20 08:00 119 08/15/20 08:00 98.9 119 20 121/66 (84) 69 08/15/20 08:00 Mechanical Ventilator Height (Feet): 5 Height (Inches): 5.00 Weight (Pounds): 160 HEENT: other - orally intubated Respiratory/Chest: other - on ventilator, FNC0=655% Cardiovascular: tachycardia, other - left PICC line Abdomen: soft, non tender Extremities: other - edema Neurologic/Psychiatric: unresponsiveness Laboratory Tests Test 08/16/20 05:50 White Blood Count 44.7 K/UL (4.8-10.8) *H Red Blood Count 3.23 M/UL (4.70-6.10) L Hemoglobin 10.2 G/DL (14.2-18.0) L Hematocrit 33.6 % (42.0-52.0) L Mean Corpuscular Volume 104 FL (80-99) H Mean Corpuscular Hemoglobin 31.7 PG (27.0-31.0) H Mean Corpuscular Hemoglobin Concent 30.5 G/DL (32.0-36.0) L Red Cell Distribution Width 13.8 % (11.6-14.8) Platelet Count 248 K/UL (150-450) Mean Platelet Volume 9.4 FL (6.5-10.1) Neutrophils (%) (Auto) % (45.0-75.0) Lymphocytes (%) (Auto) % (20.0-45.0) Monocytes (%) (Auto) % (1.0-10.0) Eosinophils (%) (Auto) % (0.0-3.0) Basophils (%) (Auto) % (0.0-2.0) Neutrophils % (Manual) Pending Lymphocytes % (Manual) Pending Platelet Estimate Pending Platelet Morphology Pending Sodium Level 140 MMOL/L (136-145) Potassium Level 6.1 MMOL/L (3.5-5.1) *H Chloride Level 104 MMOL/L (98-107) Carbon Dioxide Level 19 MMOL/L (21-32) L Anion Gap 16 mmol/L (5-15) H Blood Urea Nitrogen 112 mg/dL (7-18) H Creatinine 6.0 MG/DL (0.55-1.30) H Estimat Glomerular Filtration Rate 9.5 mL/min (>60) Glucose Level 137 MG/DL (74-106) H Calcium Level 7.5 MG/DL (8.5-10.1) L Phosphorus Level 11.5 MG/DL (2.5-4.9) H Total Bilirubin 0.9 MG/DL (0.2-1.0) Aspartate Amino Transf (AST/SGOT) 535 U/L (15-37) H Alanine Aminotransferase (ALT/SGPT) 154 U/L (12-78) H Alkaline Phosphatase 293 U/L (46-116) H C-Reactive Protein, Quantitative 3.2 mg/dL (0.00-0.90) H Total Protein 5.2 G/DL (6.4-8.2) L Albumin 2.0 G/DL (3.4-5.0) L Globulin 3.2 g/dL Albumin/Globulin Ratio 0.6 (1.0-2.7) L Current Medications Medications (Trade) Dose Ordered Sig/Fabiano Route PRN Reason Start Time Stop Time Status Last Admin Dose Admin Acetaminophen (Tylenol) 650 mg Q4H PRN NG Temp >100.5 08/03/20 04:15 09/02/20 04:14 08/15/20 13:39 Acetaminophen (Tylenol) 650 mg Q4H PRN RECTAL Temp >100.5 08/01/20 20:30 08/31/20 20:29 08/13/20 01:22 Albuterol Sulfate (Proventil MDI) 2 puff Q4H PRN INH Shortness of Breath 07/29/20 22:45 4/5/21 22:44 Ceftriaxone Sodium 1 gm/ Sodium Chloride 55 ml @ 110 mls/hr Q24H IVPB 08/13/20 10:00 08/20/20 09:59 08/15/20 10:18 Chlorhexidine Gluconate (Marisela-Hex 2%) 1 applic DAILY@2000 TOPIC 08/08/20 20:00 11/06/20 19:59 08/15/20 19:54 Clonidine HCl (Catapres Tab) 0.1 mg Q2H PRN ORAL SBP > 170mmHg 08/04/20 09:45 11/02/20 09:44 08/07/20 23:20 Dextrose (Dextrose 50%) 25 ml Q30M PRN IV Hypoglycemia 08/15/20 11:30 11/13/20 11:29 Dextrose (Dextrose 50%) 50 ml Q30M PRN IV Hypoglycemia 08/15/20 11:30 11/13/20 11:29 Docusate Sodium (Colace) 100 mg Q12HR GT 08/08/20 21:00 09/07/20 20:59 08/15/20 20:23 Dopamine HCl/ Dextrose 250 ml @ 0 mls/hr Q24H IV 08/16/20 00:30 08/19/20 00:26 Enoxaparin Sodium (Lovenox) 30 mg DAILY SUBQ 08/02/20 10:00 10/31/20 09:59 08/15/20 08:13 Insulin Aspart (NovoLOG) EVERY 4 HOURS SUBQ 08/15/20 13:00 11/13/20 12:59 08/16/20 04:42 Insulin Aspart (NovoLOG) 10 units EVERY 4 HOURS SUBQ 08/15/20 13:00 11/13/20 12:59 08/16/20 04:43 Methylprednisolone Sodium Succinate (Solu-MEDROL) 40 mg EVERY 12 HOURS IVP 08/12/20 09:09 11/02/20 12:29 08/15/20 20:23 Norepinephrine Bitartrate 8 mg/ Sodium Chloride 500 ml @ 0 mls/hr Q24H IV 08/15/20 22:00 08/18/20 21:59 08/16/20 06:31 Pantoprazole (Protonix) 40 mg DAILY IVP 08/06/20 10:00 09/05/20 09:59 08/15/20 08:11 Phenylephrine HCl 50 mg/Dextrose 250 ml @ 0 mls/hr Q24H IV 08/16/20 00:30 08/19/20 00:26 08/16/20 05:43 Polyethylene Glycol (Miralax) 17 gm BEDTIME ORAL 08/06/20 21:00 09/05/20 20:59 08/15/20 20:23 Sodium Chloride 1,000 ml @ 75 mls/hr [id number] IV 08/13/20 13:30 09/12/20 13:29 08/16/20 03:23 Vasopressin 100 units/Sodium Chloride 100 ml @ 0 mls/hr Q24H IV 08/16/20 00:30 08/19/20 00:26 Vitamin D (Vitamin D) 5,000 unit DAILY GT 08/11/20 10:15 09/10/20 10:14 08/15/20 08:12 Jose Antonio Klein MD Aug 16, 2020 07:35
--- NOTE | 2020-08-16 08:00 | NUR ---
NURSE NOTES: Patient received as comatose. Upon assessment shows no signs of response to pain, no signs gag reflex. Patient is is unreponsive with no pupillary response. Patient is on pvc monitor. Patient with O2 saturation 68% on mechanical ventilator AC 16/TV550/FIO2 100%/PEEP8, Patient is ST on the monitor. Patient with OGT running Nepro 35ml/hr. No residual noted. Abd distention. Patient with Vernon Catheter that is patent and intact draining to gravity with gaby urine. Patient with R Kevin IJ with pigtail and RH 20G that are patent and asymptomatic. NS @ 75ML/HR running, LEVO 30 mcg running and Emil 180 mcgs running on RIJ. Safety measures are in place with bed locked in the lowest position HOB at 30 degrees. Will continue to monitor and follow plan of care
[2020-08-16] MEDS ORDERED: Tubing IV Secondary IV ONE (08:42)
--- NOTE | 2020-08-16 08:44 | NUR ---
CASE MANAGEMENT:REVIEW 08/16/20 SI: COVID PNA. ACUTER RESPIRATORY FAILURE~ INTUBATED 99.4 106 16 93/59 SAT 58% ON 100% VENT SUPPORT BUN+44.7 K+6.1 BUN+112 CR+6.0 IS: LEVOPHED GTT PHENYLEPHRINE GTT IV ROCEPHIN Q24 IVF@75/HR IV SOLUMEDROL Q12 IV PROTONIX QD LOVENOX SQ QD : ICU STATUS
[2020-08-16] MEDS: Solu-MEDROL 125mg Inj IVP SCH (09:00)
[2020-08-16] MEDS: Pantoprazole Inj IVP SCH (09:00)
[2020-08-16] MEDS: Docusate 100mg/10ml Liq GT SCH (09:00)
[2020-08-16] MEDS: Vitamin D 1000 units Tab GT SCH (09:00)
[2020-08-16] MEDS: Enoxaparin 30mg Inj SUBQ SCH (09:00)
--- NOTE | 2020-08-16 09:14 | Pulmonology Progress Note ---
Subjective ROS Limited/Unobtainable: Yes Interval Events: Intubated 08/01/20 Constitutional: Reports: fever, other - Vc=971.4 in am HEENT: Repors: no symptoms Respiratory: Reports: no symptoms Cardiovascular: Reports: no symptoms Gastrointestinal/Abdominal: Reports: no symptoms Musculoskeletal: Denies: pain Allergies: Coded Allergies: No Known Allergies (Unverified , 07/29/20) All Systems: reviewed and negative except above Objective Last 24 Hour Vital Signs Date Time Temp Pulse Resp B/P (MAP) Pulse Ox O2 Delivery O2 Flow Rate FiO2 08/16/20 07:15 106 16 100 08/16/20 07:00 105 16 93/59 (70) 58 08/16/20 06:31 97/60 08/16/20 06:30 107 17 97/60 (72) 59 08/16/20 06:00 105/49 08/16/20 06:00 104 16 105/49 (67) 55 08/16/20 05:43 110 94/57 08/16/20 05:30 107 17 94/57 (69) 60 08/16/20 05:00 102/65 08/16/20 05:00 110 17 102/65 (77) 60 08/16/20 04:30 107 16 106/62 (77) 62 08/16/20 04:00 Mechanical Ventilator 08/16/20 04:00 109 08/16/20 04:00 90/55 08/16/20 04:00 99.4 109 17 90/55 (67) 62 08/16/20 04:00 100 08/16/20 03:35 113 16 100 08/16/20 03:30 109 18 93/56 (68) 63 08/16/20 03:15 113 16 95/56 (69) 65 08/16/20 03:00 113 16 103/68 (80) 62 08/16/20 03:00 103/68 08/16/20 02:45 116 16 92/58 (69) 64 08/16/20 02:30 117 16 103/63 (76) 63 08/16/20 02:16 119/61 08/16/20 02:15 123 16 119/61 (80) 60 08/16/20 02:00 136/68 08/16/20 02:00 124 16 136/68 (90) 60 08/16/20 01:30 113 16 112/57 (75) 68 08/16/20 01:29 110 16 102/56 (71) 64 08/16/20 01:22 95 17 100/55 (70) 70 08/16/20 01:15 96 16 69/49 (56) 68 08/16/20 01:09 93 79/52 08/16/20 01:07 99 17 79/52 (61) 69 08/16/20 01:00 85/62 08/16/20 01:00 104 16 85/62 (70) 67 08/16/20 00:45 98 16 84/41 (55) 67 08/16/20 00:30 105/49 08/16/20 00:30 100 16 76/55 (62) 68 08/16/20 00:15 91 16 88/45 (59) 71 08/16/20 00:13 92 16 77/55 (62) 67 08/16/20 00:06 90 16 73/53 (60) 70 08/16/20 00:00 100 08/16/20 00:00 99.0 90 16 80/51 (61) 70 08/16/20 00:00 80/51 08/16/20 00:00 Mechanical Ventilator 08/16/20 00:00 90 08/15/20 23:45 91 16 73/43 (53) 68 08/15/20 23:45 73/43 08/15/20 23:30 98 16 100/76 (84) 70 08/15/20 23:28 110 16 100 08/15/20 23:15 111 16 94/44 (61) 69 08/15/20 23:00 110 16 81/49 (60) 69 08/15/20 23:00 81/49 08/15/20 22:30 122 16 92/54 (67) 69 08/15/20 22:15 122 16 101/52 (68) 70 08/15/20 22:05 101/54 08/15/20 22:00 101/54 08/15/20 22:00 123 17 101/54 (70) 69 08/15/20 21:45 123 18 101/52 (68) 70 08/15/20 21:30 120 17 95/54 (68) 69 08/15/20 21:15 120 18 90/42 (58) 68 1/22/21 21:00 123 19 119/58 (78) 69 08/15/20 21:00 119/58 08/15/20 20:48 99/57 08/15/20 20:45 108 17 99/57 (71) 74 08/15/20 20:44 106 17 97/57 (70) 66 08/15/20 20:37 83 16 80/47 (58) 83 08/15/20 20:35 70 20 59/34 (42) 84 08/15/20 20:30 82 16 65/35 (45) 77 08/15/20 20:15 80 16 67/37 (47) 75 08/15/20 20:00 99.2 90 16 69/33 (45) 68 08/15/20 20:00 90 08/15/20 20:00 100 08/15/20 20:00 69/33 08/15/20 20:00 Mechanical Ventilator 08/15/20 19:45 96 16 69/33 (45) 68 08/15/20 19:11 122 20 100 08/15/20 19:00 106 16 69/33 (45) 68 08/15/20 19:00 69/33 08/15/20 18:00 118 20 80/48 (59) 66 08/15/20 18:00 107/60 08/15/20 17:30 98.9 08/15/20 17:00 97/51 08/15/20 17:00 115 24 95/51 (66) 63 08/15/20 16:00 Mechanical Ventilator 08/15/20 16:00 100 08/15/20 16:00 114/52 08/15/20 16:00 100.0 116 17 114/52 (72) 65 08/15/20 16:00 78 08/15/20 15:26 116 16 100 08/15/20 15:00 110/67 08/15/20 15:00 60 16 60/30 (40) 85 08/15/20 14:09 100.0 08/15/20 14:00 72/45 08/15/20 14:00 61 16 54/30 (38) 83 08/15/20 13:22 80 62/43 08/15/20 13:08 62/43 08/15/20 13:00 100.6 99 16 72/45 (54) 64 08/15/20 12:00 80 08/15/20 12:00 100 08/15/20 12:00 113 16 81/46 (58) 60 08/15/20 12:00 81/46 08/15/20 12:00 Mechanical Ventilator 08/15/20 11:00 104/48 08/15/20 11:00 114 16 96/52 (67) 63 08/15/20 10:55 116 21 100 08/15/20 10:00 109/64 08/15/20 10:00 119 24 144/77 (99) 74 Intake and Output 08/15/20 08/16/20 19:00 07:00 Intake Total 2286.30 ml 2878.65 ml Output Total 360 ml 80 ml Balance 1926.30 ml 2798.65 ml Free Water 200 ml IV Total 1486.30 ml 2408.65 ml Tube Feeding 420 ml 420 ml Other 180 ml 50 ml Output Urine Total 360 ml 80 ml # Bowel Movements 2 1 General Appearance: no acute distress HEENT: normocephalic, atraumatic Respiratory: lungs clear Cardiovascular: normal rate, regular rhythm Abdomen: soft, non tender Laboratory Tests 08/16/20 05:50: White Blood Count 44.7*H, Red Blood Count 3.23L, Hemoglobin 10.2L, Hematocrit 33.6L, Mean Corpuscular Volume 104H, Mean Corpuscular Hemoglobin 31.7H, Mean Corpuscular Hemoglobin Concent 30.5L, Red Cell Distribution Width 13.8, Platelet Count 248, Mean Platelet Volume 9.4, Neutrophils (%) (Auto) , Lymphocytes (%) (Auto) , Monocytes (%) (Auto) , Eosinophils (%) (Auto) , Basophils (%) (Auto) , Differential Total Cells Counted 100, Neutrophils % (Manual) 84H, Lymphocytes % (Manual) 9L, Monocytes % (Manual) 4, Eosinophils % (Manual) 0, Basophils % (Manual) 0, Band Neutrophils 3, Nucleated Red Blood Cells 8, Platelet Estimate Adequate, Platelet Morphology Normal, Hypochromasia 1+, Macrocytosis 1+, Sodium Level 140, Potassium Level 6.1*H, Chloride Level 104, Carbon Dioxide Level 19L, Anion Gap 16H, Blood Urea Nitrogen 112H, Creatinine 6.0H, Estimat Glomerular Filtration Rate 9.5, Glucose Level 137H, Calcium Level 7.5L, Phosphorus Level 11.5H, Total Bilirubin 0.9, Aspartate Amino Transf (AST/SGOT) 535H, Alanine Aminotransferase (ALT/SGPT) 154H, Alkaline Phosphatase 293H, C-Reactive Protein, Quantitative 3.2H, Total Protein 5.2L, Albumin 2.0L, Globulin 3.2, Albumin/Globulin Ratio 0.6L Current Medications Medications (Trade) Dose Ordered Sig/Fabiano Route PRN Reason Start Time Stop Time Status Last Admin Dose Admin Acetaminophen (Tylenol) 650 mg Q4H PRN NG Temp >100.5 08/03/20 04:15 09/02/20 04:14 08/15/20 13:39 Acetaminophen (Tylenol) 650 mg Q4H PRN RECTAL Temp >100.5 08/01/20 20:30 08/31/20 20:29 08/13/20 01:22 Albuterol Sulfate (Proventil MDI) 2 puff Q4H PRN INH Shortness of Breath 07/29/20 22:45 10/27/20 22:44 Ceftriaxone Sodium 1 gm/ Sodium Chloride 55 ml @ 110 mls/hr Q24H IVPB 08/13/20 10:00 08/20/20 09:59 08/15/20 10:18 Chlorhexidine Gluconate (Marisela-Hex 2%) 1 applic DAILY@2000 TOPIC 08/08/20 20:00 11/06/20 19:59 08/15/20 19:54 Clonidine HCl (Catapres Tab) 0.1 mg Q2H PRN ORAL SBP > 170mmHg 08/04/20 09:45 11/02/20 09:44 08/07/20 23:20 Dextrose (Dextrose 50%) 25 ml Q30M PRN IV Hypoglycemia 08/15/20 11:30 11/13/20 11:29 Dextrose (Dextrose 50%) 50 ml Q30M PRN IV Hypoglycemia 08/15/20 11:30 11/13/20 11:29 Docusate Sodium (Colace) 100 mg Q12HR GT 08/08/20 21:00 09/07/20 20:59 08/15/20 20:23 Dopamine HCl/ Dextrose 250 ml @ 0 mls/hr Q24H IV 08/16/20 00:30 08/19/20 00:26 Enoxaparin Sodium (Lovenox) 30 mg DAILY SUBQ 08/02/20 10:00 10/31/20 09:59 08/15/20 08:13 Insulin Aspart (NovoLOG) EVERY 4 HOURS SUBQ 08/15/20 13:00 11/13/20 12:59 08/16/20 04:42 Insulin Aspart (NovoLOG) 10 units EVERY 4 HOURS SUBQ 08/15/20 13:00 11/13/20 12:59 08/16/20 04:43 Methylprednisolone Sodium Succinate (Solu-MEDROL) 40 mg EVERY 12 HOURS IVP 08/12/20 09:09 11/02/20 12:29 08/15/20 20:23 Norepinephrine Bitartrate 8 mg/ Sodium Chloride 500 ml @ 0 mls/hr Q24H IV 08/15/20 22:00 08/18/20 21:59 08/16/20 06:31 Pantoprazole (Protonix) 40 mg DAILY IVP 08/06/20 10:00 09/05/20 09:59 08/15/20 08:11 Phenylephrine HCl 50 mg/Dextrose 250 ml @ 0 mls/hr Q24H IV 08/16/20 00:30 08/19/20 00:26 08/16/20 05:43 Polyethylene Glycol (Miralax) 17 gm BEDTIME ORAL 08/06/20 21:00 09/05/20 20:59 08/15/20 20:23 Sodium Chloride 1,000 ml @ 75 mls/hr [id number] IV 08/13/20 13:30 09/12/20 13:29 08/16/20 03:23 Vasopressin 100 units/Sodium Chloride 100 ml @ 0 mls/hr Q24H IV 08/16/20 00:30 08/19/20 00:26 Vitamin D (Vitamin D) 5,000 unit DAILY GT 08/11/20 10:15 09/10/20 10:14 08/15/20 08:12 Assessment/Plan Assessment/Plan 1. Respiratory Failure - intubated 08/01/20 - oxygenating poorly; SaO2 85-65% - Continue PEEP 10 - continue 100% Fio2; - peak airway pressure approx 60 2. Hyponatremia - per primary MD 3. Hyperglycemia - BG control 5. Pneumonia - abx per ID - on dexamethasone (07/30-) - now on remdesivir per ID (08/01-) 6. COVID-19 rapid negative - COVID-19 PCR positive 7. Elevated inflammatory markers; ferritin, D-Dimer - likely secondary to #5 - On Lovenox Discussed with son Remains totally unresponsive; off all sedation Noted neurology eval Has worsening of renal function Nephrology following [facility] prognosis Discussed with Dr Alves EEG shows NO brain activity No spontaneous breathing Cannot do apnea test as he is hypoxic No corneal reflexes Discussed with daughter Advised her of brain She will consult with family and call me back Advised extubation Milton Antonio MD Aug 16, 2020 09:14
--- NOTE | 2020-08-16 09:30 | NUR ---
NURSE NOTES: Dr. Antonio assessed patient bedside. Spoke to family to confirm that patient EEG and grim prognosis of Brain . Dr. Villanueva will consult to confirm and plan for terminal extubation.
--- NOTE | 2020-08-16 10:29 | General Progress Note ---
Subjective Constitutional: Reports: weakness Allergies: Coded Allergies: No Known Allergies (Unverified , 07/29/20) All Systems: reviewed and negative except above Subjective intubated sedated in icu Objective Last 24 Hour Vital Signs Date Time Temp Pulse Resp B/P (MAP) Pulse Ox O2 Delivery O2 Flow Rate FiO2 08/16/20 08:00 100 08/16/20 07:15 106 16 100 08/16/20 07:00 105 16 93/59 (70) 58 08/16/20 06:31 97/60 08/16/20 06:30 107 17 97/60 (72) 59 08/16/20 06:00 105/49 08/16/20 06:00 104 16 105/49 (67) 55 08/16/20 05:43 110 94/57 08/16/20 05:30 107 17 94/57 (69) 60 08/16/20 05:00 102/65 08/16/20 05:00 110 17 102/65 (77) 60 08/16/20 04:30 107 16 106/62 (77) 62 08/16/20 04:00 Mechanical Ventilator 08/16/20 04:00 109 08/16/20 04:00 90/55 08/16/20 04:00 99.4 109 17 90/55 (67) 62 08/16/20 04:00 100 08/16/20 03:35 113 16 100 08/16/20 03:30 109 18 93/56 (68) 63 08/16/20 03:15 113 16 95/56 (69) 65 08/16/20 03:00 113 16 103/68 (80) 62 08/16/20 03:00 103/68 08/16/20 02:45 116 16 92/58 (69) 64 08/16/20 02:30 117 16 103/63 (76) 63 08/16/20 02:16 119/61 08/16/20 02:15 123 16 119/61 (80) 60 08/16/20 02:00 136/68 08/16/20 02:00 124 16 136/68 (90) 60 08/16/20 01:30 113 16 112/57 (75) 68 08/16/20 01:29 110 16 102/56 (71) 64 08/16/20 01:22 95 17 100/55 (70) 70 08/16/20 01:15 96 16 69/49 (56) 68 08/16/20 01:09 93 79/52 08/16/20 01:07 99 17 79/52 (61) 69 08/16/20 01:00 85/62 08/16/20 01:00 104 16 85/62 (70) 67 08/16/20 00:45 98 16 84/41 (55) 67 08/16/20 00:30 105/49 08/16/20 00:30 100 16 76/55 (62) 68 08/16/20 00:15 91 16 88/45 (59) 71 08/16/20 00:13 92 16 77/55 (62) 67 08/16/20 00:06 90 16 73/53 (60) 70 08/16/20 00:00 100 08/16/20 00:00 99.0 90 16 80/51 (61) 70 08/16/20 00:00 80/51 08/16/20 00:00 Mechanical Ventilator 08/16/20 00:00 90 08/15/20 23:45 91 16 73/43 (53) 68 08/15/20 23:45 73/43 08/15/20 23:30 98 16 100/76 (84) 70 08/15/20 23:28 110 16 100 08/15/20 23:15 111 16 94/44 (61) 69 08/15/20 23:00 110 16 81/49 (60) 69 08/15/20 23:00 81/49 08/15/20 22:30 122 16 92/54 (67) 69 08/15/20 22:15 122 16 101/52 (68) 70 08/15/20 22:05 101/54 08/15/20 22:00 101/54 08/15/20 22:00 123 17 101/54 (70) 69 08/15/20 21:45 123 18 101/52 (68) 70 08/15/20 21:30 120 17 95/54 (68) 69 08/15/20 21:15 120 18 90/42 (58) 68 08/15/20 21:00 123 19 119/58 (78) 69 08/15/20 21:00 119/58 08/15/20 20:48 99/57 08/15/20 20:45 108 17 99/57 (71) 74 08/15/20 20:44 106 17 97/57 (70) 66 08/15/20 20:37 83 16 80/47 (58) 83 08/15/20 20:35 70 20 59/34 (42) 84 08/15/20 20:30 82 16 65/35 (45) 77 08/15/20 20:15 80 16 67/37 (47) 75 08/15/20 20:00 99.2 90 16 69/33 (45) 68 08/15/20 20:00 90 08/15/20 20:00 100 08/15/20 20:00 69/33 08/15/20 20:00 Mechanical Ventilator 08/15/20 19:45 96 16 69/33 (45) 68 08/15/20 19:11 122 20 100 08/15/20 19:00 106 16 69/33 (45) 68 08/15/20 19:00 69/33 08/15/20 18:00 118 20 80/48 (59) 66 08/15/20 18:00 107/60 08/15/20 17:30 98.9 08/15/20 17:00 97/51 08/15/20 17:00 115 24 95/51 (66) 63 08/15/20 16:00 Mechanical Ventilator 08/15/20 16:00 100 08/15/20 16:00 114/52 08/15/20 16:00 100.0 116 17 114/52 (72) 65 08/15/20 16:00 78 08/15/20 15:26 116 16 100 08/15/20 15:00 110/67 08/15/20 15:00 60 16 60/30 (40) 85 08/15/20 14:09 100.0 08/15/20 14:00 72/45 08/15/20 14:00 61 16 54/30 (38) 83 08/15/20 13:22 80 62/43 08/15/20 13:08 62/43 08/15/20 13:00 100.6 99 16 72/45 (54) 64 08/15/20 12:00 80 08/15/20 12:00 100 08/15/20 12:00 113 16 81/46 (58) 60 08/15/20 12:00 81/46 08/15/20 12:00 Mechanical Ventilator 08/15/20 11:00 104/48 08/15/20 11:00 114 16 96/52 (67) 63 08/15/20 10:55 116 21 100 Intake and Output 08/15/20 08/16/20 19:00 07:00 Intake Total 2286.30 ml 2878.65 ml Output Total 360 ml 80 ml Balance 1926.30 ml 2798.65 ml Free Water 200 ml IV Total 1486.30 ml 2408.65 ml Tube Feeding 420 ml 420 ml Other 180 ml 50 ml Output Urine Total 360 ml 80 ml # Bowel Movements 2 1 Laboratory Tests 08/16/20 05:50: White Blood Count 44.7*H, Red Blood Count 3.23L, Hemoglobin 10.2L, Hematocrit 33 .6L, Mean Corpuscular Volume 104H, Mean Corpuscular Hemoglobin 31.7H, Mean Corpuscular Hemoglobin Concent 30.5L, Red Cell Distribution Width 13.8, Platelet Count 248, Mean Platelet Volume 9.4, Neutrophils (%) (Auto) , Lymphocytes (%) (Auto) , Monocytes (%) (Auto) , Eosinophils (%) (Auto) , Basophils (%) (Auto) , Differential Total Cells Counted 100, Neutrophils % (Manual) 84H, Lymphocytes % (Manual) 9L, Monocytes % (Manual) 4, Eosinophils % (Manual) 0, Basophils % (Manual) 0, Band Neutrophils 3, Nucleated Red Blood Cells 8, Platelet Estimate Adequate, Platelet Morphology Normal, Hypochromasia 1+, Macrocytosis 1+, Sodium Level 140, Potassium Level 6.1*H, Chloride Level 104, Carbon Dioxide Level 19L, Anion Gap 16H, Blood Urea Nitrogen 112H, Creatinine 6.0H, Estimat Glomerular Filtration Rate 9.5, Glucose Level 137H, Calcium Level 7.5L, Phosphorus Level 11.5H, Total Bilirubin 0.9, Aspartate Amino Transf (AST/SGOT) 535H, Alanine Aminotransferase (ALT/SGPT) 154H, Alkaline Phosphatase 293H, C-Reactive Protein, Quantitative 3.2H, Total Protein 5.2L, Albumin 2.0L, Globulin 3.2, Albumin/Globulin Ratio 0.6L Height (Feet): 5 Height (Inches): 5.00 Weight (Pounds): 160 General Appearance: lethargic EENT: normal ENT inspection Neck: normal alignment Cardiovascular: normal peripheral pulses, normal rate, regular rhythm Respiratory/Chest: chest wall non-tender, lungs clear, normal breath sounds Abdomen: normal bowel sounds, non tender, soft Extremities: normal inspection Edema: no edema noted Arm (L), no edema noted Arm (R), no edema noted Leg (L), no edema noted Leg (R), no edema noted Pedal (L), no edema noted Pedal (R), no edema noted Generalized Neurologic: motor weakness Skin: normal pigmentation, warm/dry Assessment/Plan Problem List: (1) Hypoxia ICD Codes: R09.02 - Hypoxemia SNOMED: 099214137 (2) Bilateral pneumonia ICD Codes: J18.9 - Pneumonia, unspecified organism SNOMED: 470324234, 025363493 (3) Acute respiratory failure with hypoxia ICD Codes: J96.01 - Acute respiratory failure with hypoxia SNOMED: 77094773, 675554240 (4) Bradycardia ICD Codes: R00.1 - Bradycardia, unspecified SNOMED: 71882474 (5) Malnutrition ICD Codes: E46 - Unspecified protein-calorie malnutrition SNOMED: 00220222 Status: unchanged Assessment/Plan: o2 pulm tx abx pt diet cardio f/u cbc bmp am Robert Guzman DO Aug 16, 2020 10:29
--- NOTE | 2020-08-16 10:30 | NUR ---
NURSE NOTES: Spoke to Daughter in Law of patient who is aware that patient will be terminally extubated upon Neuro consult to confirm Brain .
--- NOTE | 2020-08-16 10:51 | Cardiac Electrophysiology PN ---
Assessment/Plan Assessment/Plan 1. Bradycardia off any sinus-galen or AV-galen blocking agents. Echo EF 60% 2. Atral fib with RVR. Off Cardizem in view of hypotension on Emil and Levo 3. Respiratory failure due to Covid PNA intubated on 100% Fio2 and PEEP 8 4. Acute renal failure with BUN/Cr 129/4.2 S/P Right IJ Kevin. 5. Shock Liver with AST and ALT >1100. Better now 6. Septic shock. WBC more than 40K on IV antibiotic and Levophed and Emil 7. Comatose. S/P EEG. Awaiting final reading and Neuro eval for brain DW RN and Dr Everett Subjective Subjective In ICU intubated on 100% Fio2 and PEEP 8 and Saturation only 63% EF 60%. S/P Right IJ Kevin by Radiology Comatose with no activity on EEG. Awaiting final EEG reading for brain eval by Neuro Maxed out on Emil and Levo 15 Objective Last 24 Hour Vital Signs Date Time Temp Pulse Resp B/P (MAP) Pulse Ox O2 Delivery O2 Flow Rate FiO2 08/16/20 08:00 100 08/16/20 07:15 106 16 100 08/16/20 07:00 105 16 93/59 (70) 58 08/16/20 06:31 97/60 08/16/20 06:30 107 17 97/60 (72) 59 08/16/20 06:00 105/49 08/16/20 06:00 104 16 105/49 (67) 55 08/16/20 05:43 110 94/57 08/16/20 05:30 107 17 94/57 (69) 60 08/16/20 05:00 102/65 08/16/20 05:00 110 17 102/65 (77) 60 08/16/20 04:30 107 16 106/62 (77) 62 08/16/20 04:00 Mechanical Ventilator 08/16/20 04:00 109 08/16/20 04:00 90/55 08/16/20 04:00 99.4 109 17 90/55 (67) 62 08/16/20 04:00 100 08/16/20 03:35 113 16 100 08/16/20 03:30 109 18 93/56 (68) 63 08/16/20 03:15 113 16 95/56 (69) 65 08/16/20 03:00 113 16 103/68 (80) 62 08/16/20 03:00 103/68 08/16/20 02:45 116 16 92/58 (69) 64 08/16/20 02:30 117 16 103/63 (76) 63 08/16/20 02:16 119/61 08/16/20 02:15 123 16 119/61 (80) 60 08/16/20 02:00 136/68 08/16/20 02:00 124 16 136/68 (90) 60 08/16/20 01:30 113 16 112/57 (75) 68 08/16/20 01:29 110 16 102/56 (71) 64 08/16/20 01:22 95 17 100/55 (70) 70 08/16/20 01:15 96 16 69/49 (56) 68 08/16/20 01:09 93 79/52 08/16/20 01:07 99 17 79/52 (61) 69 08/16/20 01:00 85/62 08/16/20 01:00 104 16 85/62 (70) 67 08/16/20 00:45 98 16 84/41 (55) 67 08/16/20 00:30 105/49 08/16/20 00:30 100 16 76/55 (62) 68 08/16/20 00:15 91 16 88/45 (59) 71 08/16/20 00:13 92 16 77/55 (62) 67 08/16/20 00:06 90 16 73/53 (60) 70 08/16/20 00:00 100 08/16/20 00:00 99.0 90 16 80/51 (61) 70 08/16/20 00:00 80/51 08/16/20 00:00 Mechanical Ventilator 08/16/20 00:00 90 08/15/20 23:45 91 16 73/43 (53) 68 08/15/20 23:45 73/43 08/15/20 23:30 98 16 100/76 (84) 70 08/15/20 23:28 110 16 100 08/15/20 23:15 111 16 94/44 (61) 69 08/15/20 23:00 110 16 81/49 (60) 69 08/15/20 23:00 81/49 08/15/20 22:30 122 16 92/54 (67) 69 08/15/20 22:15 122 16 101/52 (68) 70 08/15/20 22:05 101/54 08/15/20 22:00 101/54 08/15/20 22:00 123 17 101/54 (70) 69 08/15/20 21:45 123 18 101/52 (68) 70 08/15/20 21:30 120 17 95/54 (68) 69 08/15/20 21:15 120 18 90/42 (58) 68 08/15/20 21:00 123 19 119/58 (78) 69 08/15/20 21:00 119/58 08/15/20 20:48 99/57 08/15/20 20:45 108 17 99/57 (71) 74 08/15/20 20:44 106 17 97/57 (70) 66 08/15/20 20:37 83 16 80/47 (58) 83 08/15/20 20:35 70 20 59/34 (42) 84 08/15/20 20:30 82 16 65/35 (45) 77 08/15/20 20:15 80 16 67/37 (47) 75 08/15/20 20:00 99.2 90 16 69/33 (45) 68 08/15/20 20:00 90 08/15/20 20:00 100 08/15/20 20:00 69/33 08/15/20 20:00 Mechanical Ventilator 08/15/20 19:45 96 16 69/33 (45) 68 08/15/20 19:11 122 20 100 08/15/20 19:00 106 16 69/33 (45) 68 08/15/20 19:00 69/33 08/15/20 18:00 118 20 80/48 (59) 66 08/15/20 18:00 107/60 08/15/20 17:30 98.9 08/15/20 17:00 97/51 08/15/20 17:00 115 24 95/51 (66) 63 08/15/20 16:00 Mechanical Ventilator 08/15/20 16:00 100 08/15/20 16:00 114/52 08/15/20 16:00 100.0 116 17 114/52 (72) 65 08/15/20 16:00 78 08/15/20 15:26 116 16 100 08/15/20 15:00 110/67 08/15/20 15:00 60 16 60/30 (40) 85 08/15/20 14:09 100.0 08/15/20 14:00 72/45 08/15/20 14:00 61 16 54/30 (38) 83 08/15/20 13:22 80 62/43 08/15/20 13:08 62/43 08/15/20 13:00 100.6 99 16 72/45 (54) 64 08/15/20 12:00 80 08/15/20 12:00 100 08/15/20 12:00 113 16 81/46 (58) 60 08/15/20 12:00 81/46 08/15/20 12:00 Mechanical Ventilator 08/15/20 11:00 104/48 08/15/20 11:00 114 16 96/52 (67) 63 08/15/20 10:55 116 21 100 Intake and Output 08/15/20 08/16/20 19:00 07:00 Intake Total 2286.30 ml 2878.65 ml Output Total 360 ml 80 ml Balance 1926.30 ml 2798.65 ml Free Water 200 ml IV Total 1486.30 ml 2408.65 ml Tube Feeding 420 ml 420 ml Other 180 ml 50 ml Output Urine Total 360 ml 80 ml # Bowel Movements 2 1 Laboratory Tests Test 08/16/20 05:50 White Blood Count 44.7 K/UL (4.8-10.8) *H Red Blood Count 3.23 M/UL (4.70-6.10) L Hemoglobin 10.2 G/DL (14.2-18.0) L Hematocrit 33.6 % (42.0-52.0) L Mean Corpuscular Volume 104 FL (80-99) H Mean Corpuscular Hemoglobin 31.7 PG (27.0-31.0) H Mean Corpuscular Hemoglobin Concent 30.5 G/DL (32.0-36.0) L Red Cell Distribution Width 13.8 % (11.6-14.8) Platelet Count 248 K/UL (150-450) Mean Platelet Volume 9.4 FL (6.5-10.1) Neutrophils (%) (Auto) % (45.0-75.0) Lymphocytes (%) (Auto) % (20.0-45.0) Monocytes (%) (Auto) % (1.0-10.0) Eosinophils (%) (Auto) % (0.0-3.0) Basophils (%) (Auto) % (0.0-2.0) Differential Total Cells Counted 100 Neutrophils % (Manual) 84 % (45-75) H Lymphocytes % (Manual) 9 % (20-45) L Monocytes % (Manual) 4 % (1-10) Eosinophils % (Manual) 0 % (0-3) Basophils % (Manual) 0 % (0-2) Band Neutrophils 3 % (0-8) Nucleated Red Blood Cells 8 /100 WBC Platelet Estimate Adequate Platelet Morphology Normal Hypochromasia 1+ Macrocytosis 1+ Sodium Level 140 MMOL/L (136-145) Potassium Level 6.1 MMOL/L (3.5-5.1) *H Chloride Level 104 MMOL/L (98-107) Carbon Dioxide Level 19 MMOL/L (21-32) L Anion Gap 16 mmol/L (5-15) H Blood Urea Nitrogen 112 mg/dL (7-18) H Creatinine 6.0 MG/DL (0.55-1.30) H Estimat Glomerular Filtration Rate 9.5 mL/min (>60) Glucose Level 137 MG/DL (74-106) H Calcium Level 7.5 MG/DL (8.5-10.1) L Phosphorus Level 11.5 MG/DL (2.5-4.9) H Total Bilirubin 0.9 MG/DL (0.2-1.0) Aspartate Amino Transf (AST/SGOT) 535 U/L (15-37) H Alanine Aminotransferase (ALT/SGPT) 154 U/L (12-78) H Alkaline Phosphatase 293 U/L (46-116) H C-Reactive Protein, Quantitative 3.2 mg/dL (0.00-0.90) H Total Protein 5.2 G/DL (6.4-8.2) L Albumin 2.0 G/DL (3.4-5.0) L Globulin 3.2 g/dL Albumin/Globulin Ratio 0.6 (1.0-2.7) L Objective HEAD AND NECK: Orally intubated LUNGS: Coarse rhonchi CARDIOVASCULAR: Shows regular S1 and S2 with no gallop. ABDOMEN: Soft. EXTREMITIES: No pitting edema. Navjot Bains MD Aug 16, 2020 10:51
[2020-08-16] MEDS: cefTRIAXone 1 GM in NS 55 ML IVPB SCH (12:02)
--- NOTE | 2020-08-16 12:30 | General Progress Note ---
Subjective ROS Limited/Unobtainable: No Allergies: Coded Allergies: No Known Allergies (Unverified , 07/29/20) Objective Last 24 Hour Vital Signs Date Time Temp Pulse Resp B/P (MAP) Pulse Ox O2 Delivery O2 Flow Rate FiO2 08/16/20 11:52 92 83/43 08/16/20 11:51 83/43 08/16/20 11:50 88 16 100 08/16/20 08:00 100 08/16/20 07:15 106 16 100 08/16/20 07:00 105 16 93/59 (70) 58 08/16/20 06:31 97/60 08/16/20 06:30 107 17 97/60 (72) 59 08/16/20 06:00 105/49 08/16/20 06:00 104 16 105/49 (67) 55 08/16/20 05:43 110 94/57 08/16/20 05:30 107 17 94/57 (69) 60 08/16/20 05:00 102/65 08/16/20 05:00 110 17 102/65 (77) 60 08/16/20 04:30 107 16 106/62 (77) 62 08/16/20 04:00 Mechanical Ventilator 08/16/20 04:00 109 08/16/20 04:00 90/55 08/16/20 04:00 99.4 109 17 90/55 (67) 62 08/16/20 04:00 100 08/16/20 03:35 113 16 100 08/16/20 03:30 109 18 93/56 (68) 63 08/16/20 03:15 113 16 95/56 (69) 65 08/16/20 03:00 113 16 103/68 (80) 62 08/16/20 03:00 103/68 08/16/20 02:45 116 16 92/58 (69) 64 08/16/20 02:30 117 16 103/63 (76) 63 08/16/20 02:16 119/61 08/16/20 02:15 123 16 119/61 (80) 60 08/16/20 02:00 136/68 08/16/20 02:00 124 16 136/68 (90) 60 08/16/20 01:30 113 16 112/57 (75) 68 08/16/20 01:29 110 16 102/56 (71) 64 08/16/20 01:22 95 17 100/55 (70) 70 08/16/20 01:15 96 16 69/49 (56) 68 08/16/20 01:09 93 79/52 08/16/20 01:07 99 17 79/52 (61) 69 08/16/20 01:00 85/62 08/16/20 01:00 104 16 85/62 (70) 67 08/16/20 00:45 98 16 84/41 (55) 67 08/16/20 00:30 105/49 08/16/20 00:30 100 16 76/55 (62) 68 08/16/20 00:15 91 16 88/45 (59) 71 08/16/20 00:13 92 16 77/55 (62) 67 08/16/20 00:06 90 16 73/53 (60) 70 08/16/20 00:00 100 08/16/20 00:00 99.0 90 16 80/51 (61) 70 08/16/20 00:00 80/51 08/16/20 00:00 Mechanical Ventilator 08/16/20 00:00 90 08/15/20 23:45 91 16 73/43 (53) 68 08/15/20 23:45 73/43 08/15/20 23:30 98 16 100/76 (84) 70 08/15/20 23:28 110 16 100 08/15/20 23:15 111 16 94/44 (61) 69 08/15/20 23:00 110 16 81/49 (60) 69 08/15/20 23:00 81/49 08/15/20 22:30 122 16 92/54 (67) 69 08/15/20 22:15 122 16 101/52 (68) 70 08/15/20 22:05 101/54 08/15/20 22:00 101/54 08/15/20 22:00 123 17 101/54 (70) 69 08/15/20 21:45 123 18 101/52 (68) 70 08/15/20 21:30 120 17 95/54 (68) 69 08/15/20 21:15 120 18 90/42 (58) 68 08/15/20 21:00 123 19 119/58 (78) 69 08/15/20 21:00 119/58 08/15/20 20:48 99/57 08/15/20 20:45 108 17 99/57 (71) 74 08/15/20 20:44 106 17 97/57 (70) 66 08/15/20 20:37 83 16 80/47 (58) 83 08/15/20 20:35 70 20 59/34 (42) 84 08/15/20 20:30 82 16 65/35 (45) 77 08/15/20 20:15 80 16 67/37 (47) 75 08/15/20 20:00 99.2 90 16 69/33 (45) 68 08/15/20 20:00 90 08/15/20 20:00 100 08/15/20 20:00 69/33 08/15/20 20:00 Mechanical Ventilator 08/15/20 19:45 96 16 69/33 (45) 68 08/15/20 19:11 122 20 100 08/15/20 19:00 106 16 69/33 (45) 68 08/15/20 19:00 69/33 08/15/20 18:00 118 20 80/48 (59) 66 08/15/20 18:00 107/60 08/15/20 17:30 98.9 08/15/20 17:00 97/51 08/15/20 17:00 115 24 95/51 (66) 63 08/15/20 16:00 Mechanical Ventilator 08/15/20 16:00 100 08/15/20 16:00 114/52 08/15/20 16:00 100.0 116 17 114/52 (72) 65 08/15/20 16:00 78 08/15/20 15:26 116 16 100 08/15/20 15:00 110/67 08/15/20 15:00 60 16 60/30 (40) 85 08/15/20 14:09 100.0 08/15/20 14:00 72/45 08/15/20 14:00 61 16 54/30 (38) 83 08/15/20 13:22 80 62/43 08/15/20 13:08 62/43 08/15/20 13:00 100.6 99 16 72/45 (54) 64 Intake and Output 08/15/20 08/16/20 19:00 07:00 Intake Total 2286.30 ml 2878.65 ml Output Total 360 ml 80 ml Balance 1926.30 ml 2798.65 ml Free Water 200 ml IV Total 1486.30 ml 2408.65 ml Tube Feeding 420 ml 420 ml Other 180 ml 50 ml Output Urine Total 360 ml 80 ml # Bowel Movements 2 1 Laboratory Tests 08/15/20 20:28: POC Whole Blood Glucose [Pending] 08/16/20 05:50: White Blood Count 44.7*H, Red Blood Count 3.23L, Hemoglobin 10.2L, Hematocrit 33.6L, Mean Corpuscular Volume 104H, Mean Corpuscular Hemoglobin 31.7H, Mean Corpuscular Hemoglobin Concent 30.5L, Red Cell Distribution Width 13.8, Platelet Count 248, Mean Platelet Volume 9.4, Neutrophils (%) (Auto) , Lymphocytes (%) (Auto) , Monocytes (%) (Auto) , Eosinophils (%) (Auto) , Basophils (%) (Auto) , Differential Total Cells Counted 100, Neutrophils % (Manual) 84H, Lymphocytes % (Manual) 9L, Monocytes % (Manual) 4, Eosinophils % (Manual) 0, Basophils % (Manual) 0, Band Neutrophils 3, Nucleated Red Blood Cells 8, Platelet Estimate Adequate, Platelet Morphology Normal, Hypochromasia 1+, Macrocytosis 1+, Sodium Level 140, Potassium Level 6.1*H, Chloride Level 104, Carbon Dioxide Level 19L, Anion Gap 16H, Blood Urea Nitrogen 112H, Creatinine 6.0H, Estimat Glomerular Filtration Rate 9.5, Glucose Level 137H, Calcium Level 7.5L, Phosphorus Level 11 .5H, Total Bilirubin 0.9, Aspartate Amino Transf (AST/SGOT) 535H, Alanine Aminotransferase (ALT/SGPT) 154H, Alkaline Phosphatase 293H, C-Reactive Protein, Quantitative 3.2H, Total Protein 5.2L, Albumin 2.0L, Globulin 3.2, Albumin/Globulin Ratio 0.6L Height (Feet): 5 Height (Inches): 5.00 Weight (Pounds): 160 General Appearance: no apparent distress EENT: normal ENT inspection Neck: supple Cardiovascular: normal rate Respiratory/Chest: decreased breath sounds Abdomen: normal bowel sounds, non tender, soft Extremities: non-tender Assessment/Plan Problem List: (1) Hypoxia ICD Codes: R09.02 - Hypoxemia SNOMED: 769162459 (2) Bilateral pneumonia ICD Codes: J18.9 - Pneumonia, unspecified organism SNOMED: 522082053, 282791350 (3) Acute respiratory failure with hypoxia ICD Codes: J96.01 - Acute respiratory failure with hypoxia SNOMED: 64367480, 709844244 (4) Bradycardia ICD Codes: R00.1 - Bradycardia, unspecified SNOMED: 07126548 (5) Malnutrition ICD Codes: E46 - Unspecified protein-calorie malnutrition SNOMED: 69930340 (6) Shock liver ICD Codes: K72.00 - Acute and subacute hepatic failure without coma SNOMED: 767553240 (7) ERIKA (acute kidney injury) ICD Codes: N17.9 - Acute kidney failure, unspecified SNOMED: 2825432, 80070786 Status: unchanged Assessment/Plan: NGTF covid care fu labs abx per ID shock liver>>>fu LFTS>>>improving bowel regimen poor prognosis will fu Enoch Varner MD Aug 16, 2020 12:30
--- NOTE | 2020-08-16 16:00 | NUR ---
NURSE NOTES: Spoke to Dr. Everett regarding HD. Per pending extubation, on HOLD until confirmation regarding Neuro consult If Neuro consult does not occur, patient will proceed with HD
--- NOTE | 2020-08-16 16:21 | Nephrology Progress Note ---
Assessment/Plan Problem List: (1) ERIKA (acute kidney injury) (2) Shock liver (3) Acute respiratory failure with hypoxia (4) Bilateral pneumonia Assessment Acute renal failure. Most likely due to hypotensive and shock from 8 PM last night to 5 AM this morning. Hyperkalemia. Acute hypoxic respiratory failure. Pneumonia with COVID-19. Elevated transaminase, most likely shock liver. Plan August 16: Labs reviewed. Patient was ordered to get dialysis today, however according to the CARLOS Laurent the neurologist is due visiting the patient and pronounced him brain . In this case the dialysis can be canceled unless the neurologist does not pronounce him brain , and then need to proceed with dialysis treatment. August 15: Labs reviewed. Dialyzed yesterday. Potassium 5.6. Kayexalate ordered. EEG formal results noted. Waiting for neurological advice with regard to clinical findings regarding brain stem function. August 14: Labs reviewed. Will order dialysis today. We waiting for the formal EEG results regarding brain activity. Continue per consultants. August 13: Labs reviewed. Last dialyzed August 11. Last evening the patient was hypotensive with poor oxygenation. Patient responded to albumin and fluid challenge. IV Lasix given. Today on 2 pressors. Remains hemodynamically unstable. Discussed with RN. Still do not have the EEG results. Continue current care. Unstable for dialysis today. Will check lab tomorrow. August 12: Labs reviewed. Patient dialyzed yesterday. Discussed with RN. Patient had EEG done last night which appears to have no brain activity. Waiting for neuro advice regarding brain activity. Will discontinue dialysis plans if the patient considered brain . August 11: Lab reviewed. Renal parameters worsening. Due for insertion of dialysis catheter today. Patient's head CT scan was not done due to change in condition. Vitamin D supplements started for low vitamin D level. August 10: Lab reviewed. Renal parameters worsening. Patient unresponsive. Remains on ventilator. Remains full code. Due for CT scan of the head. Will plan for dialysis catheter and dialysis should the head CT results are desirable. Discussed with CARLOS Laurent. August 09: Labs reviewed. Potassium elevated. Kayexalate given. Serum sodium gradually improving. Continue D5W. Continue per consultants. Continue monitor renal parameters and electrolytes. August 08: Labs reviewed. Renal parameters stable. Abnormal electrolytes noted. Continue current management. Albumin bolus given. Continue to monitor current state Mary Kay 14: Labs reviewed. Neutra-Phos via NG tube given. Serum sodium and serum potassium lowering. Medication list reviewed. Levemir and Cardizem doses were adjusted by consultants. Continue to monitor renal parameters. August 06: Labs reviewed. Serum potassium 5.2. Serum sodium 152. Will change IV to D5W. Will start with the Levemir 10 mg nightly. August 05: Labs reviewed. Renal parameters improving. LFTs gradually improving. IV changed to half-normal saline. Continue to monitor blood sugar. Continue to monitor renal parameters. Patient full code. Cardizem dose increased. August 04: Renal parameters improving. LFTs remain elevated. Hemodynamically stable. Continue to monitor renal parameters. Continue per consultants. Discussed with CARLOS Greene. August 03: Patient intubated on ventilator. Renal parameters worsening. LFTs elevated. Patient is deteriorating. Will consider dialysis treatment if no reversal of kidney failure. Discussed with CARLOS Alexis. Previously: Albumin bolus Increase IV fluid Kayexalate for high potassium Monitor renal parameters Subjective ROS Limited/Unobtainable: Yes Objective Objective Last 24 Hour Vital Signs Date Time Temp Pulse Resp B/P (MAP) Pulse Ox O2 Delivery O2 Flow Rate FiO2 08/16/20 16:00 98.6 102 16 101/58 (72) 57 08/16/20 15:47 17 110/91 08/16/20 15:44 101/64 08/16/20 15:00 104 16 102/55 (71) 63 08/16/20 14:00 105 16 96/65 (75) 63 08/16/20 13:00 104 16 97/48 (64) 64 08/16/20 12:00 Mechanical Ventilator 08/16/20 12:00 100 08/16/20 12:00 99.0 99 16 87/44 (58) 63 08/16/20 11:52 92 83/43 08/16/20 11:51 83/43 08/16/20 11:50 88 16 100 08/16/20 11:00 102 16 98/44 (62) 59 08/16/20 10:00 106 16 96/51 (66) 61 08/16/20 09:00 107 16 98/55 (69) 58 08/16/20 08:00 100 08/16/20 08:00 Mechanical Ventilator 08/16/20 08:00 98.8 108 16 94/57 (69) 59 08/16/20 07:15 106 16 100 08/16/20 07:00 105 16 93/59 (70) 58 08/16/20 06:31 97/60 08/16/20 06:30 107 17 97/60 (72) 59 08/16/20 06:00 105/49 08/16/20 06:00 104 16 105/49 (67) 55 08/16/20 05:43 110 94/57 08/16/20 05:30 107 17 94/57 (69) 60 08/16/20 05:00 102/65 08/16/20 05:00 110 17 102/65 (77) 60 08/16/20 04:30 107 16 106/62 (77) 62 08/16/20 04:00 Mechanical Ventilator 08/16/20 04:00 109 08/16/20 04:00 90/55 08/16/20 04:00 99.4 109 17 90/55 (67) 62 08/16/20 04:00 100 08/16/20 03:35 113 16 100 08/16/20 03:30 109 18 93/56 (68) 63 08/16/20 03:15 113 16 95/56 (69) 65 08/16/20 03:00 113 16 103/68 (80) 62 08/16/20 03:00 103/68 08/16/20 02:45 116 16 92/58 (69) 64 08/16/20 02:30 117 16 103/63 (76) 63 08/16/20 02:16 119/61 08/16/20 02:15 123 16 119/61 (80) 60 08/16/20 02:00 136/68 08/16/20 02:00 124 16 136/68 (90) 60 08/16/20 01:30 113 16 112/57 (75) 68 08/16/20 01:29 110 16 102/56 (71) 64 08/16/20 01:22 95 17 100/55 (70) 70 08/16/20 01:15 96 16 69/49 (56) 68 08/16/20 01:09 93 79/52 08/16/20 01:07 99 17 79/52 (61) 69 08/16/20 01:00 85/62 08/16/20 01:00 104 16 85/62 (70) 67 08/16/20 00:45 98 16 84/41 (55) 67 08/16/20 00:30 105/49 08/16/20 00:30 100 16 76/55 (62) 68 08/16/20 00:15 91 16 88/45 (59) 71 08/16/20 00:13 92 16 77/55 (62) 67 08/16/20 00:06 90 16 73/53 (60) 70 08/16/20 00:00 100 08/16/20 00:00 99.0 90 16 80/51 (61) 70 08/16/20 00:00 80/51 08/16/20 00:00 Mechanical Ventilator 08/16/20 00:00 90 08/15/20 23:45 91 16 73/43 (53) 68 08/15/20 23:45 73/43 08/15/20 23:30 98 16 100/76 (84) 70 08/15/20 23:28 110 16 100 08/15/20 23:15 111 16 94/44 (61) 69 08/15/20 23:00 110 16 81/49 (60) 69 08/15/20 23:00 81/49 08/15/20 22:30 122 16 92/54 (67) 69 08/15/20 22:15 122 16 101/52 (68) 70 08/15/20 22:05 101/54 08/15/20 22:00 101/54 08/15/20 22:00 123 17 101/54 (70) 69 08/15/20 21:45 123 18 101/52 (68) 70 08/15/20 21:30 120 17 95/54 (68) 69 08/15/20 21:15 120 18 90/42 (58) 68 08/15/20 21:00 123 19 119/58 (78) 69 08/15/20 21:00 119/58 08/15/20 20:48 99/57 08/15/20 20:45 108 17 99/57 (71) 74 08/15/20 20:44 106 17 97/57 (70) 66 08/15/20 20:37 83 16 80/47 (58) 83 08/15/20 20:35 70 20 59/34 (42) 84 08/15/20 20:30 82 16 65/35 (45) 77 08/15/20 20:15 80 16 67/37 (47) 75 08/15/20 20:00 99.2 90 16 69/33 (45) 68 08/15/20 20:00 90 08/15/20 20:00 100 08/15/20 20:00 69/33 08/15/20 20:00 Mechanical Ventilator 08/15/20 19:45 96 16 69/33 (45) 68 08/15/20 19:11 122 20 100 08/15/20 19:00 106 16 69/33 (45) 68 08/15/20 19:00 69/33 08/15/20 18:00 118 20 80/48 (59) 66 08/15/20 18:00 107/60 08/15/20 17:30 98.9 08/15/20 17:00 97/51 08/15/20 17:00 115 24 95/51 (66) 63 Intake and Output 08/15/20 08/16/20 19:00 07:00 Intake Total 2286.30 ml 2878.65 ml Output Total 360 ml 80 ml Balance 1926.30 ml 2798.65 ml Free Water 200 ml IV Total 1486.30 ml 2408.65 ml Tube Feeding 420 ml 420 ml Other 180 ml 50 ml Output Urine Total 360 ml 80 ml # Bowel Movements 2 1 Current Medications Medications (Trade) Dose Ordered Sig/Fabiano Route PRN Reason Start Time Stop Time Status Last Admin Dose Admin Acetaminophen (Tylenol) 650 mg Q4H PRN NG Temp >100.5 08/03/20 04:15 09/02/20 04:14 08/15/20 13:39 Acetaminophen (Tylenol) 650 mg Q4H PRN RECTAL Temp >100.5 08/01/20 20:30 08/31/20 20:29 08/13/20 01:22 Albuterol Sulfate (Proventil MDI) 2 puff Q4H PRN INH Shortness of Breath 07/29/20 22:45 10/27/20 22:44 Ceftriaxone Sodium 1 gm/ Sodium Chloride 55 ml @ 110 mls/hr Q24H IVPB 08/13/20 10:00 08/20/20 09:59 08/16/20 12:02 Chlorhexidine Gluconate (Marisela-Hex 2%) 1 applic DAILY@2000 TOPIC 08/08/20 20:00 11/06/20 19:59 08/15/20 19:54 Clonidine HCl (Catapres Tab) 0.1 mg Q2H PRN ORAL SBP > 170mmHg 08/04/20 09:45 11/02/20 09:44 08/07/20 23:20 Dextrose (Dextrose 50%) 25 ml Q30M PRN IV Hypoglycemia 08/15/20 11:30 11/13/20 11:29 Dextrose (Dextrose 50%) 50 ml Q30M PRN IV Hypoglycemia 08/15/20 11:30 11/13/20 11:29 Docusate Sodium (Colace) 100 mg Q12HR GT 08/08/20 21:00 09/07/20 20:59 08/15/20 20:23 Dopamine HCl/ Dextrose 250 ml @ 0 mls/hr Q24H IV 08/16/20 00:30 08/19/20 00:26 Enoxaparin Sodium (Lovenox) 30 mg DAILY SUBQ 08/02/20 10:00 10/31/20 09:59 08/15/20 08:13 Insulin Aspart (NovoLOG) EVERY 4 HOURS SUBQ 08/15/20 13:00 11/13/20 12:59 08/16/20 04:42 Insulin Aspart (NovoLOG) 10 units EVERY 4 HOURS SUBQ 08/15/20 13:00 11/13/20 12:59 08/16/20 04:43 Methylprednisolone Sodium Succinate (Solu-MEDROL) 40 mg EVERY 12 HOURS IVP 08/12/20 09:09 11/02/20 12:29 08/15/20 20:23 Norepinephrine Bitartrate 8 mg/ Sodium Chloride 500 ml @ 0 mls/hr Q24H IV 08/15/20 22:00 08/18/20 21:59 08/16/20 15:44 Pantoprazole (Protonix) 40 mg DAILY IVP 08/06/20 10:00 09/05/20 09:59 08/15/20 08:11 Phenylephrine HCl 50 mg/Dextrose 250 ml @ 0 mls/hr Q24H IV 08/16/20 00:30 08/19/20 00:26 08/16/20 15:47 Polyethylene Glycol (Miralax) 17 gm BEDTIME ORAL 08/06/20 21:00 09/05/20 20:59 08/15/20 20:23 Sodium Chloride 1,000 ml @ 75 mls/hr [id number] IV 08/13/20 13:30 09/12/20 13:29 08/16/20 12:03 Vasopressin 100 units/Sodium Chloride 100 ml @ 0 mls/hr Q24H IV 08/16/20 00:30 08/19/20 00:26 Vitamin D (Vitamin D) 5,000 unit DAILY GT 08/11/20 10:15 09/10/20 10:14 08/15/20 08:12 Laboratory Tests 08/15/20 20:28: POC Whole Blood Glucose [Pending] 08/16/20 05:50: White Blood Count 44.7*H, Red Blood Count 3.23L, Hemoglobin 10.2L, Hematocrit 33.6L, Mean Corpuscular Volume 104H, Mean Corpuscular Hemoglobin 31.7H, Mean Corpuscular Hemoglobin Concent 30.5L, Red Cell Distribution Width 13.8, Platelet Count 248, Mean Platelet Volume 9.4, Neutrophils (%) (Auto) , Lymphocytes (%) (Auto) , Monocytes (%) (Auto) , Eosinophils (%) (Auto) , Basophils (%) (Auto) , Differential Total Cells Counted 100, Neutrophils % (Manual) 84H, Lymphocytes % (Manual) 9L, Monocytes % (Manual) 4, Eosinophils % (Manual) 0, Basophils % (Manual) 0, Band Neutrophils 3, Nucleated Red Blood Cells 8, Platelet Estimate Adequate, Platelet Morphology Normal, Hypochromasia 1+, Macrocytosis 1+, Sodium Level 140, Potassium Level 6.1*H, Chloride Level 104, Carbon Dioxide Level 19L, Anion Gap 16H, Blood Urea Nitrogen 112H, Creatinine 6.0H, Estimat Glomerular Filtration Rate 9.5, Glucose Level 137H, Calcium Level 7.5L, Phosphorus Level 11.5H, Total Bilirubin 0.9, Aspartate Amino Transf (AST/SGOT) 535H, Alanine Aminotransferase (ALT/SGPT) 154H, Alkaline Phosphatase 293H, C-Reactive Protein, Quantitative 3.2H, Total Protein 5.2L, Albumin 2.0L, Globulin 3.2, Albumin/Globulin Ratio 0.6L Height (Feet): 5 Height (Inches): 5.00 Weight (Pounds): 160 General Appearance: no apparent distress EENT: other - Intubated on ventilator Cardiovascular: tachycardia Respiratory/Chest: decreased breath sounds Abdomen: distended Neurologic: other - Unresponsive Jared Everett MD Aug 16, 2020 16:21
--- NOTE | 2020-08-16 17:09 | Surgery Progress Note ---
Surgery Progress Note Subjective Additional Comments worse leukocytosis no n/v Objective Last 24 Hour Vital Signs Date Time Temp Pulse Resp B/P (MAP) Pulse Ox O2 Delivery O2 Flow Rate FiO2 08/16/20 16:00 103 08/16/20 16:00 98.6 102 16 101/58 (72) 57 08/16/20 15:47 17 110/91 08/16/20 15:44 101/64 08/16/20 15:40 100 16 100 08/16/20 15:00 104 16 102/55 (71) 63 08/16/20 14:00 105 16 96/65 (75) 63 08/16/20 13:00 104 16 97/48 (64) 64 08/16/20 12:00 94 08/16/20 12:00 Mechanical Ventilator 08/16/20 12:00 100 08/16/20 12:00 99.0 99 16 87/44 (58) 63 08/16/20 11:52 92 83/43 08/16/20 11:51 83/43 08/16/20 11:50 88 16 100 08/16/20 11:00 102 16 98/44 (62) 59 08/16/20 10:00 106 16 96/51 (66) 61 08/16/20 09:00 107 16 98/55 (69) 58 08/16/20 08:00 106 08/16/20 08:00 100 08/16/20 08:00 Mechanical Ventilator 08/16/20 08:00 98.8 108 16 94/57 (69) 59 08/16/20 07:15 106 16 100 08/16/20 07:00 105 16 93/59 (70) 58 08/16/20 06:31 97/60 08/16/20 06:30 107 17 97/60 (72) 59 08/16/20 06:00 105/49 08/16/20 06:00 104 16 105/49 (67) 55 08/16/20 05:43 110 94/57 08/16/20 05:30 107 17 94/57 (69) 60 08/16/20 05:00 102/65 08/16/20 05:00 110 17 102/65 (77) 60 08/16/20 04:30 107 16 106/62 (77) 62 08/16/20 04:00 Mechanical Ventilator 08/16/20 04:00 109 08/16/20 04:00 90/55 08/16/20 04:00 99.4 109 17 90/55 (67) 62 08/16/20 04:00 100 08/16/20 03:35 113 16 100 08/16/20 03:30 109 18 93/56 (68) 63 08/16/20 03:15 113 16 95/56 (69) 65 08/16/20 03:00 113 16 103/68 (80) 62 08/16/20 03:00 103/68 08/16/20 02:45 116 16 92/58 (69) 64 08/16/20 02:30 117 16 103/63 (76) 63 08/16/20 02:16 119/61 08/16/20 02:15 123 16 119/61 (80) 60 08/16/20 02:00 136/68 08/16/20 02:00 124 16 136/68 (90) 60 08/16/20 01:30 113 16 112/57 (75) 68 08/16/20 01:29 110 16 102/56 (71) 64 08/16/20 01:22 95 17 100/55 (70) 70 08/16/20 01:15 96 16 69/49 (56) 68 08/16/20 01:09 93 79/52 08/16/20 01:07 99 17 79/52 (61) 69 08/16/20 01:00 85/62 08/16/20 01:00 104 16 85/62 (70) 67 08/16/20 00:45 98 16 84/41 (55) 67 08/16/20 00:30 105/49 08/16/20 00:30 100 16 76/55 (62) 68 08/16/20 00:15 91 16 88/45 (59) 71 08/16/20 00:13 92 16 77/55 (62) 67 08/16/20 00:06 90 16 73/53 (60) 70 08/16/20 00:00 100 08/16/20 00:00 99.0 90 16 80/51 (61) 70 08/16/20 00:00 80/51 08/16/20 00:00 Mechanical Ventilator 08/16/20 00:00 90 08/15/20 23:45 91 16 73/43 (53) 68 08/15/20 23:45 73/43 08/15/20 23:30 98 16 100/76 (84) 70 08/15/20 23:28 110 16 100 08/15/20 23:15 111 16 94/44 (61) 69 08/15/20 23:00 110 16 81/49 (60) 69 08/15/20 23:00 81/49 08/15/20 22:30 122 16 92/54 (67) 69 08/15/20 22:15 122 16 101/52 (68) 70 08/15/20 22:05 101/54 08/15/20 22:00 101/54 08/15/20 22:00 123 17 101/54 (70) 69 08/15/20 21:45 123 18 101/52 (68) 70 08/15/20 21:30 120 17 95/54 (68) 69 08/15/20 21:15 120 18 90/42 (58) 68 08/15/20 21:00 123 19 119/58 (78) 69 08/15/20 21:00 119/58 08/15/20 20:48 99/57 08/15/20 20:45 108 17 99/57 (71) 74 08/15/20 20:44 106 17 97/57 (70) 66 08/15/20 20:37 83 16 80/47 (58) 83 08/15/20 20:35 70 20 59/34 (42) 84 08/15/20 20:30 82 16 65/35 (45) 77 08/15/20 20:15 80 16 67/37 (47) 75 08/15/20 20:00 99.2 90 16 69/33 (45) 68 08/15/20 20:00 90 08/15/20 20:00 100 08/15/20 20:00 69/33 08/15/20 20:00 Mechanical Ventilator 08/15/20 19:45 96 16 69/33 (45) 68 08/15/20 19:11 122 20 100 08/15/20 19:00 106 16 69/33 (45) 68 08/15/20 19:00 69/33 08/15/20 18:00 118 20 80/48 (59) 66 08/15/20 18:00 107/60 08/15/20 17:30 98.9 I&O Intake and Output 08/15/20 08/16/20 19:00 07:00 Intake Total 2286.30 ml 2878.65 ml Output Total 360 ml 80 ml Balance 1926.30 ml 2798.65 ml Free Water 200 ml IV Total 1486.30 ml 2408.65 ml Tube Feeding 420 ml 420 ml Other 180 ml 50 ml Output Urine Total 360 ml 80 ml # Bowel Movements 2 1 Dressing: saturated Cardiovascular: RSR Respiratory: decreased breath sounds Abdomen: non-tender, present bowel sounds Extremities: no tenderness, no cyanosis Laboratory Tests Test 08/15/20 20:28 08/16/20 05:50 POC Whole Blood Glucose Pending White Blood Count 44.7 K/UL (4.8-10.8) *H Red Blood Count 3.23 M/UL (4.70-6.10) L Hemoglobin 10.2 G/DL (14.2-18.0) L Hematocrit 33.6 % (42.0-52.0) L Mean Corpuscular Volume 104 FL (80-99) H Mean Corpuscular Hemoglobin 31.7 PG (27.0-31.0) H Mean Corpuscular Hemoglobin Concent 30.5 G/DL (32.0-36.0) L Red Cell Distribution Width 13.8 % (11.6-14.8) Platelet Count 248 K/UL (150-450) Mean Platelet Volume 9.4 FL (6.5-10.1) Neutrophils (%) (Auto) % (45.0-75.0) Lymphocytes (%) (Auto) % (20.0-45.0) Monocytes (%) (Auto) % (1.0-10.0) Eosinophils (%) (Auto) % (0.0-3.0) Basophils (%) (Auto) % (0.0-2.0) Differential Total Cells Counted 100 Neutrophils % (Manual) 84 % (45-75) H Lymphocytes % (Manual) 9 % (20-45) L Monocytes % (Manual) 4 % (1-10) Eosinophils % (Manual) 0 % (0-3) Basophils % (Manual) 0 % (0-2) Band Neutrophils 3 % (0-8) Nucleated Red Blood Cells 8 /100 WBC Platelet Estimate Adequate Platelet Morphology Normal Hypochromasia 1+ Macrocytosis 1+ Sodium Level 140 MMOL/L (136-145) Potassium Level 6.1 MMOL/L (3.5-5.1) *H Chloride Level 104 MMOL/L (98-107) Carbon Dioxide Level 19 MMOL/L (21-32) L Anion Gap 16 mmol/L (5-15) H Blood Urea Nitrogen 112 mg/dL (7-18) H Creatinine 6.0 MG/DL (0.55-1.30) H Estimat Glomerular Filtration Rate 9.5 mL/min (>60) Glucose Level 137 MG/DL (74-106) H Calcium Level 7.5 MG/DL (8.5-10.1) L Phosphorus Level 11.5 MG/DL (2.5-4.9) H Total Bilirubin 0.9 MG/DL (0.2-1.0) Aspartate Amino Transf (AST/SGOT) 535 U/L (15-37) H Alanine Aminotransferase (ALT/SGPT) 154 U/L (12-78) H Alkaline Phosphatase 293 U/L (46-116) H C-Reactive Protein, Quantitative 3.2 mg/dL (0.00-0.90) H Total Protein 5.2 G/DL (6.4-8.2) L Albumin 2.0 G/DL (3.4-5.0) L Globulin 3.2 g/dL Albumin/Globulin Ratio 0.6 (1.0-2.7) L Plan Problems: (1) Hypoxia (2) Bilateral pneumonia (3) Acute respiratory failure with hypoxia Assessment & Plan: ards covid negative as per pulm id input appreciated abd pain likely cramping indigestion from ill ness ppi ordered okay for diet monitor intake am labs will follow with exam and recs acute decline intubated in ICU on vent liver insufficiency acute hepatic in sufficiency renal insufficiency no acute surgical intervention needs resuscitation meds reviewed (4) Bradycardia (5) Malnutrition Assessment & Plan: DAILY ESTIMATED NEEDS: Needs based on [facility] care 64.5kg abw 22-28 kcals/kg 9425-5056 total kcals 1.2-2 g protein/kg 77-129 g total protein 25-30 mL/kg 3142-7212 total fluid mLs NUTRITION DIAGNOSIS: Altered nutrition related lab values related to clinical status as evidenced by elev LD(665), elev WBC(trending down 17.7), elev BG(132-176), elevated lytes(K, phos, mg), elev renal labs ([id number], creat 3.2), elev LFT's ENTERAL NUTRITION RECOMMENDATIONS: As medically able, rec non oral feeds: NEPRO @35ml/hr x24 hrs to provide 840ml, 1512 kcal, 68g pro, 611ml free H2O - With hemodynamic stability, rec OGt feeds to meet est needs. - Start Nepro @15ml/hr for 6 hrs, advance as tolerated 10ml/hr q4-6 hrs to goal - Flush per MD. HOB over 30 degrees - When tolerating TF at goal, add Prosource 1 pack daily to better meet est pro needs. ADDITIONAL RECOMMENDATIONS: 1) recalibrate bed scale wt for accurate CBW 2) Monitor BG, need for NISS 3) TF recs as above when stable for feeds . (6) Shock liver Assessment & Plan: worsening lft's likely hydration resuscitation trend labs improving (7) ERIKA (acute kidney injury) Vern Quevedo Aug 16, 2020 17:09
--- NOTE | 2020-08-16 18:00 | NUR ---
NURSE NOTES: Per Dr. Antonio, HD to be cancelled. Awaiting Neuro consult and will pend extubation tomorrow if does not occur tonight. Notified Ludwin, [facility] nurse and Dr. Everett as well.
--- NOTE | 2020-08-16 18:50 | Neurology Progress Note ---
Interim History Interim History ROS Limited/Unobtainable: Yes Interim History brain examination completed Objective Physical Exam Last Vital Signs Date Time Temp Pulse Resp B/P (MAP) Pulse Ox O2 Delivery O2 Flow Rate FiO2 08/16/20 16:00 103 08/16/20 16:00 98.6 16 101/58 (72) 57 08/16/20 15:40 100 08/16/20 12:00 Mechanical Ventilator Laboratory Tests Test 08/15/20 20:28 08/16/20 05:50 POC Whole Blood Glucose Pending White Blood Count 44.7 K/UL (4.8-10.8) *H Red Blood Count 3.23 M/UL (4.70-6.10) L Hemoglobin 10.2 G/DL (14.2-18.0) L Hematocrit 33.6 % (42.0-52.0) L Mean Corpuscular Volume 104 FL (80-99) H Mean Corpuscular Hemoglobin 31.7 PG (27.0-31.0) H Mean Corpuscular Hemoglobin Concent 30.5 G/DL (32.0-36.0) L Red Cell Distribution Width 13.8 % (11.6-14.8) Platelet Count 248 K/UL (150-450) Mean Platelet Volume 9.4 FL (6.5-10.1) Neutrophils (%) (Auto) % (45.0-75.0) Lymphocytes (%) (Auto) % (20.0-45.0) Monocytes (%) (Auto) % (1.0-10.0) Eosinophils (%) (Auto) % (0.0-3.0) Basophils (%) (Auto) % (0.0-2.0) Differential Total Cells Counted 100 Neutrophils % (Manual) 84 % (45-75) H Lymphocytes % (Manual) 9 % (20-45) L Monocytes % (Manual) 4 % (1-10) Eosinophils % (Manual) 0 % (0-3) Basophils % (Manual) 0 % (0-2) Band Neutrophils 3 % (0-8) Nucleated Red Blood Cells 8 /100 WBC Platelet Estimate Adequate Platelet Morphology Normal Hypochromasia 1+ Macrocytosis 1+ Sodium Level 140 MMOL/L (136-145) Potassium Level 6.1 MMOL/L (3.5-5.1) *H Chloride Level 104 MMOL/L (98-107) Carbon Dioxide Level 19 MMOL/L (21-32) L Anion Gap 16 mmol/L (5-15) H Blood Urea Nitrogen 112 mg/dL (7-18) H Creatinine 6.0 MG/DL (0.55-1.30) H Estimat Glomerular Filtration Rate 9.5 mL/min (>60) Glucose Level 137 MG/DL (74-106) H Calcium Level 7.5 MG/DL (8.5-10.1) L Phosphorus Level 11.5 MG/DL (2.5-4.9) H Total Bilirubin 0.9 MG/DL (0.2-1.0) Aspartate Amino Transf (AST/SGOT) 535 U/L (15-37) H Alanine Aminotransferase (ALT/SGPT) 154 U/L (12-78) H Alkaline Phosphatase 293 U/L (46-116) H C-Reactive Protein, Quantitative 3.2 mg/dL (0.00-0.90) H Total Protein 5.2 G/DL (6.4-8.2) L Albumin 2.0 G/DL (3.4-5.0) L Globulin 3.2 g/dL Albumin/Globulin Ratio 0.6 (1.0-2.7) L Neurologic Exam Objective exam at 6:25 pm intubated, no sedation over 48 hours pupils 3 mm non ractive corneals absent occulocephalic absent calorics absent gag absent no trigger ventilation no movement to pain Clinically brain CC 45 min Impression/Recommendations Problems: (1) Hypoxia (2) Bilateral pneumonia (3) Acute respiratory failure with hypoxia (4) Bradycardia (5) Malnutrition (6) Shock liver (7) ERIKA (acute kidney injury) (8) Diabetes mellitus out of control Status: unchanged Diagnostic Impression Prolonged admission with septic shock, resp failure, now kidney failure on HD LFTs worsening Likely anoxic brain injury intubated, no sedation over 48 hours pupils 3 mm non ractive corneals absent occulocephalic absent calorics absent gag absent no trigger ventilation no movement to pain Clinically brain EEG confirmation of brain given unable to tolerate apnea test DW with Gabriel Vera MD Aug 16, 2020 18:50
--- NOTE | 2020-08-16 19:00 | NUR ---
NURSE NOTES: Spoke to Dr. Antonio to confirm that Dr. Villanueva has confirmed brain . Will proceed with terminal extubation per MD order. Family was called already today so they are aware of extubation. Once extubation is complete, will call the family.
--- NOTE | 2020-08-16 19:37 | NUR ---
NURSE NOTES: Patient was terminally extubated per Brain exam per 2 MD exam at 1930. Levo and Emil were discontinued at the time of the extubation. There was no attempt for spontaneous breath. Patient is currently PEA.
[2020-08-16] MEDS ORDERED: NS 500ML ONE (19:38)
[2020-08-16] MEDS ORDERED: D5W 275ml ONE (19:38)
--- NOTE | 2020-08-16 19:40 | NUR ---
NURSE NOTES: Patient is now asystole. Will call the MD and family to make everyone aware.
--- NOTE | 2020-08-16 19:56 | NUR ---
NURSE NOTES: Family was informed regarding the patient expiring. Spoke to daughter Vanessa. Mortuary name given. Dr. Antonio was called to inform.
--- NOTE | 2020-08-19 15:13 | Discharge Summary ---
Discharge Summary Discharge Summary _ Date of admission: 07/29/2020 Date of expiration: 08/16/2020 History of Present Illness and Brief Hospital Course Mr. Ruth Cary was a 64-year-old male with no pertinent past medical history who presented to the ED for evaluation of shortness of breath and hypoxemia. Patient reported associated cough and shortness of breath x10 days. Patient did report positive sick contacts at home who tested positive for COVID-19. He was found to be hypoxic on room air on arrival. Patient was immediately given supplemental oxygen via nasal cannula with subsequent improvement in his oxygen saturation. Patient initially tested negative for COVID-19 via rapid gene assay. However, patient tested positive for COVID-19 via PCR. Patient's chest x-ray revealed bilateral infiltrates. Patient received Decadron and antibiotics and admitted to the hospital for further management. Patient's renal function declined throughout his hospitalization. He was evaluated by a house worker, and patient received hemodialysis. Given his hypoxia related to COVID-19 pneumonia, he was continued with broad- spectrum antibiotics and dexamethasone along with supplemental oxygen via nonrebreather mask. His inflammatory markers were elevated and he was given heparin which was later switched to Lovenox for DVT prophylaxis. Due to w orsening hypoxemia, he was intubated on 08/01/2020. He later became totally unresponsive despite being off of sedation. He was evaluated by a neurologist. Brain imaging was indicated but patient was unstable. Patient did not show spontaneous breathing. Apnea test could not be performed as he was hypoxic. Upon further neurologic exam, his pupils were nonreactive, corneals absent, oculocephalic absent, calorics absent, gag reflex absent, no trigger ventilation, and no movement to pain. Patient was clinically brain at this point. EEG showed no brain activity and confirmed brain given inability to tolerate apnea test. Family was updated on his brain and later requested him to be terminally extubated. Given confirmation of brain renetta harmon from two physicians, patient was extubated on 08/16/2020. Patient was found to show no spontaneous breath and went into asystole in a few minutes. Unfortunately, patient on 08/16/2020 at 19:39. Cause of : Cardiopulmonary arrest Consultants: Cardiology Dr. Bains Hematology oncology Dr. Ornelas Infectious disease Dr. Cheek Neurology Dr. Villanueva Endocrinology Dr. Sinclair Nephrology Dr. Rios Surgery Dr. Quevedo Pulmonology Dr. Antonio Final diagnoses Bradycardia Atrial fibrillation with RVR Respiratory failure, status post intubation COVID-19 pneumonia Acute renal failure, on dialysis Septic shock Shock liver Comatose Brain Leukocytosis Thrombocytopenia Anemia of chronic disease Hyponatremia Hyperglycemia Hyperkalemia Hypoxic, hypercapnic respiratory failure Lactic acidosis Elevated transaminase Type 2 diabetes with hyperglycemia I have been assigned to dictate discharge summary for this account. Slava Hector Aug 19, 2020 15:13
== END 2020-08-16 19:39 | disposition expired | DRG 720 ==
LOC: EMR 14:24 → EDBEDREQ 16:07 → 4E 16:14 → EDBEDREQ 17:47 → 2E 18:30 → ICU 08-01 17:44
PROC: 0BH17EZ Insertion of Endotracheal Airway into Trachea, Via Natural or Artificial Opening (ICD-10-PCS; principal; 2020-08-01)
PROC: 5A1955Z Respiratory Ventilation, Greater than 96 Consecutive Hours (ICD-10-PCS; principal; 2020-08-01)
PROC: XW033E5 Introduction of Remdesivir Anti-infective into Peripheral Vein, Percutaneous Approach, New Technology Group 5 (ICD-10-PCS; 2020-08-01)
PROC: 02HV33Z Insertion of Infusion Device into Superior Vena Cava, Percutaneous Approach (ICD-10-PCS; 2020-08-08)
PROC: B548ZZA Ultrasonography of Superior Vena Cava, Guidance (ICD-10-PCS; 2020-08-08)
PROC: 5A1D70Z Performance of Urinary Filtration, Intermittent, Less than 6 Hours Per Day (ICD-10-PCS; 2020-08-11)
PROC: 05HM33Z Insertion of Infusion Device into Right Internal Jugular Vein, Percutaneous Approach (ICD-10-PCS; 2020-08-11)
DX: A41.9 Sepsis, unspecified organism (principal); R65.21 Severe sepsis with septic shock; J96.01 Acute respiratory failure with hypoxia; E87.3 Alkalosis; E87.1 Hypo-osmolality and hyponatremia; E46 Unspecified protein-calorie malnutrition; N17.9 Acute kidney failure, unspecified; K72.00 Acute and subacute hepatic failure without coma; U07.1 COVID-19; J12.82 Pneumonia due to coronavirus disease 2019; E11.65 Type 2 diabetes mellitus with hyperglycemia; R00.1 Bradycardia, unspecified; E87.5 Hyperkalemia; D69.6 Thrombocytopenia, unspecified; G93.1 Anoxic brain damage, not elsewhere classified; I48.91 Unspecified atrial fibrillation; D64.9 Anemia, unspecified
CPT/HCPCS: 36415; 36569; 71045; 74018; 76937; 80048; 80053; 80061; 81003; 82140; 82150; 82248; 82306; 82550; 82553; 82728; 82803; 82962; 82977; 83605; 83615; 83690; 83735; 83880; 84100; 84439; 84443; 84484; 84550; 85007; 85025; 85379; 85610; 85730; 86140; 86703; 86705; 86709; 86710; 86803; 87040; 87070; 87205; 87340; 93005; 93306; 94002; 94003; 95819; 96365; 96367; 96375; 99291; C9399; J1815; J2370; J3490; J7030; S5561; U0002